=== PATIENT | female | born 1965 | race Caucasian/White ===

== ENCOUNTER 2016-04-29 14:10 | Emergency (ER) | payer MEDICARE, MEDICAID ==
[2016-04-29 14:54] VITALS: BP 122/84
--- NOTE | 2016-04-29 15:25 | UC ---
Respiratory Complaint HPI - HPI Summary HPI Summary: The patient comes in today for: 1. Cough: Onset: 3 days. Palliative/provocative: Nothing makes the cough better or worse. Quality: Wet cough, hacking. Region: Lungs Severity: 0/10 Time: Cough comes and goes. Associated symptoms: Cough production: "Sometimes I do bring something up--yellow phlegm." Asthma: She has this and it is slightly worse. She is on Symbicort 160/4.5 one inhalation twice. She uses the albuterol inhaler about once a day. She is wheezing. Home: She is living with one with sinusitis and the other one has COPD. Fevers: None. Last ER asthma visit: "Quite a while ago." Prednisone use: Never. * - History of Current Complaint Chief Complaint: UC Stated Complaint: URI Time Seen by Provider: 04/29/16 15:17 Hx Obtained From: Patient Hx Last Menstrual Period: april 29 ?: No - Allergies/Home Medications Allergies/Adverse Reactions: Allergies Allergy/AdvReac Type Severity Reaction Status Date / Time Amoxicillin AdvReac Intermediate Nausea And Verified 04/29/16 15:00 Vomiting Tetracycline AdvReac Intermediate Nausea And Verified 04/29/16 15:00 Vomiting Aspirin AdvReac Unknown Unknown Verified 04/29/16 15:00 Reaction Details PMH/Surg Hx/FS Hx/Imm Hx Previously Healthy: No - Allergic rhinitis, Binge eating disorder, yeast and dermatophyte dermatitis Endocrine History Of: Reports: Diabetes, Thyroid Disease, Dyslipidemia Cardiovascular History Of: Denies: Cardiac Disorders, Hypertension, Pacemaker/ICD, Myocardial Infarction , Congestive Heart Failure, Atrial Fibrillation, Deep Vein Thrombosis, Bleeding Disorders Respiratory History Of: Reports: Asthma Denies: COPD, Bronchitis, Pneumonia, Pulmonary Embolism GI/ History Of: Reports: Gastroesophageal Reflux, Ulcer Denies: Renal Disease Neurological History Of: Denies: TIA, CVA, Dementia, Seizures, Migraine Psychological History Of: Reports: Schizophrenia Denies: Anxiety, Depression, Bipolar Disorder, Post Traumatic Stress Disorder Cancer History Of: Denies: Lung Cancer, Colorectal Cancer, Breast Cancer, Prostate Cancer, Cervical Cancer Other History Of: Negative For: HIV, Hepatitis B, Hepatitis C, Anticoagulant Therapy - Surgical History Surgical History: Yes Surgery Procedure, Year, and Place: tubal ligation - Family History Known Family History: Positive: Cardiac Disease, Hypertension, Diabetes - Social History Occupation: Unemployed Alcohol Use: None Substance Use Type: None Smoking Status (MU): Never Smoked Tobacco - Immunization History Most Recent Influenza Vaccination: 2016 Review of Systems Constitutional: Negative Skin: Negative Eyes: Negative ENT: Negative Respiratory: Shortness Of Breath, Cough Cardiovascular: Negative Gastrointestinal: Negative Genitourinary: Negative All Other Systems Reviewed And Are Negative: Yes Physical Exam Triage Information Reviewed: Yes Appearance: Well-Appearing, No Pain Distress, Well-Nourished Vital Signs: Initial Vital Signs Temp 98.8 F 04/29/16 14:48 Pulse 85 04/29/16 14:48 Resp 18 04/29/16 14:48 BP 122/84 04/29/16 14:48 Pulse Ox 100 04/29/16 14:48 Vital Signs Reviewed: Yes Eyes: Positive: Conjunctiva Clear. Negative: Discharge ENT: Positive: Hearing grossly normal, Other: - Ears: Right ear: TM andersen and translucent. Left ear: Cerumen impaction in place. She did not agree to ear irrigation. Canal: no erythema or edema.. Negative: Pharyngeal erythema, Nasal congestion, Nasal drainage, Tonsillar swelling, Tonsillar exudate Dental: Negative: Gross Decay/Caries @, Dental Fracture @ Neck: Positive: Supple, Nontender, No Lymphadenopathy. Negative: Nuchal Rigidity Respiratory: Positive: Chest non-tender, Lungs clear, No respiratory distress, No accessory muscle use. Negative: Rhonchi, Wheezing Cardiovascular: Positive: RRR, No Murmur Abdomen Description: Positive: Nontender, No Organomegaly, Soft. Negative: Distended, Guarding Musculoskeletal: Positive: Strength Intact, ROM Intact, No Edema Neurological: Positive: Alert, Muscle Tone Normal Psychological: Positive: Age Appropriate Behavior, Consolable Skin: Negative: rashes, breakdown UC Diagnostic Evaluation - Laboratory O2 Sat by Pulse Oximetry: 100 Respiratory Course/Dx - Differential Dx/Diagnosis Differential Diagnosis/HQI/PQRI: Asthma, Laryngitis, Sinusitis Provider Diagnoses: Upper viral respiratory infection. Sinusitis. Bronchitis. Asthma Discharge - Discharge Plan Condition: Stable Disposition: HOME Patient Education Materials: Sinusitis (ED), Acute Bronchitis (ED), Asthma (ED) Referrals: Jason Bianchi MD [Primary Care Provider] - 1 Week (Please see your primary care provider in a week to see how well you are doing. If you get worse, please be seen sooner in the ER or through us.)
== END 2016-04-29 16:01 | disposition home or self-care (01) ==
LOC: UCEAST 14:10
DX: J06.9 Acute upper respiratory infection, unspecified (principal); J32.9 Chronic sinusitis, unspecified; J45.909 Unspecified asthma, uncomplicated; Z88.1 Allergy status to other antibiotic agents; Z88.6 Allergy status to analgesic agent; Z88.0 Allergy status to penicillin
CPT/HCPCS: 99212; G0463

== ENCOUNTER 2017-02-14 20:49 | Emergency (ER) | payer MEDICARE, MEDICAID ==
[2017-02-14] MEDS ORDERED: Lidocaine 2% VISCOUS* 15 ML UDC PO ONE (21:32)
[2017-02-14] MEDS ORDERED: Al Hydrox/Mg Hydrox/Simet LIQ* 30 ML UDC PO ONE (21:32)
[2017-02-14 22:39] LABS: Hematocrit 38 % (35-47); Mean Corpuscular HGB Conc 34 g/dl (31-36); Mean Corpuscular Hemoglobin 29 pg (27-31); Mean Corpuscular Volume 85 fL (80-97); Mean Platelet Volume 8 um3 (7.4-10.4); Red Blood Count 4.43 10^6/ul (4.0-5.4); Red Cell Distribution Width 15 % (10.5-15); White Blood Count 6.5 10^3/ul (3.5-10.8)
[2017-02-14 22:51] LABS: Albumin 4.1 g/dL (3.2-5.2); BUN/Creatinine Ratio 14.6 (8-20); C Reactive Protein 19.07 mg/L (< 5.00); Calcium 9.8 mg/dL (8.6-10.3); EGFR African American 71.8 (>60); EGFR Non-African American 55.8 (>60); Globulin 2.6 g/dL (2-4); Total Bilirubin 0.4 mg/dL (0.2-1.0); Total Protein 6.7 g/dL (6.4-8.9)
[2017-02-14 23:34] VITALS: BP 163/79
--- NOTE | 2017-02-15 11:41 | ED ---
Jj Mesa Thomas, scribed for Jose Gallardo MD on 02/14/17 at 2141 . HPI Chest Pain - HPI Summary HPI Summary: This patient is a 52 year old F presenting to [facility] accompanied by a female with a chief complaint of heartburn in her central chest since the last two weeks. She describes this pain as acidic. The patient rates the pain 8/10 in severity. Symptoms aggravated by nothing. Symptoms alleviated by nothing. Patient reports abdominal pain, vomiting, and nausea. Patient denies diarrhea. She has been taking omeprazole and Pepto-Bismol. - History of Current Complaint Chief Complaint: EDAbdPain Time Seen by Provider: 02/14/17 21:22 Hx Obtained From: Patient Onset/Duration: Started Weeks Ago - 2, Still Present Timing: Constant Current Severity: Severe Pain Intensity: 8 Pain Scale Used: 0-10 Numeric Chest Pain Location: Diffuse Character: Other: - Acidic Aggravating Factor(s): Nothing Alleviating Factor(s): Nothing Associated Signs and Symptoms: Positive: Other: - heartburn, abdominal pain, vomiting, and nausea; NEGATIVE: diarrhea - Allergy/Home Medications Allergies/Adverse Reactions: Allergies Allergy/AdvReac Type Severity Reaction Status Date / Time Amoxicillin AdvReac Intermediate Nausea And Verified 04/29/16 15:00 Vomiting Tetracycline AdvReac Intermediate Nausea And Verified 04/29/16 15:00 Vomiting Aspirin AdvReac Unknown Unknown Verified 04/29/16 15:00 Reaction Details PMH/Surg Hx/FS Hx/Imm Hx Previously Healthy: No Endocrine/Hematology History: Reports: Hx Diabetes, Hx Thyroid Disease Denies: Hx Anticoagulant Therapy Cardiovascular History: Denies: Hx Congestive Heart Failure, Hx Deep Vein Thrombosis, Hx Hypertension , Hx Myocardial Infarction, Hx Pacemaker/ICD Respiratory History: Reports: Hx Asthma Denies: Hx Chronic Obstructive Pulmonary Disease (COPD), Hx Lung Cancer, Hx Pneumonia, Hx Pulmonary Embolism GI History: Reports: Hx Ulcer History: Denies: Hx Dialysis, Hx Renal Disease Neurological History: Denies: Hx Dementia, Hx Migraine, Hx Seizures, Hx Transient Ischemic Attacks (TIA) Psychiatric History: Reports: Hx Schizophrenia Denies: Hx Anxiety, Hx Depression, Hx Bipolar Disorder - Cancer History Hx Chemotherapy: No Hx Radiation Therapy: No - Surgical History Surgery Procedure, Year, and Place: tubal ligation Infectious Disease History: No Infectious Disease History: Denies: Traveled Outside the [place] in Last 30 Days - Family History Known Family History: Positive: Cardiac Disease, Hypertension, Diabetes - Social History Alcohol Use: None Hx Substance Use: No Substance Use Type: Reports: None Hx Tobacco Use: No Smoking Status (MU): Never Smoked Tobacco Review of Systems Negative: Fever Positive: Chest Pain - acidic Positive: Abdominal Pain, Vomiting, Nausea. Negative: Diarrhea All Other Systems Reviewed And Are Negative: Yes Physical Exam - Summary Physical Exam Summary: Appearance: The patient is well-nourished in no acute distress and in no acute pain. Skin: The skin is warm and dry and skin color reflects adequate perfusion. HEENT: The head is normocephalic and atraumatic. The pupils are equal and reactive. The conjunctivae are clear and without drainage. Nares are patent and without drainage. Mouth reveals moist mucous membranes and the throat is without erythema and exudate. The external ears are intact. The ear canals are patent and without drainage. The tympanic membranes are intact. Neck: the neck is supple with full range of motion and non-tender. There are no carotid bruits. There is no neck vein distension. Respiratory: Chest is non-tender. Lungs are clear to auscultation and breath sounds are symmetrical and equal. Cardiovascular: Heart is regular rate and rhythm. There is no murmur or rub auscultated. There is no peripheral edema and pulses are symmetrical and equal. She is tender to the anterior chest wall. She has parasternal tenderness. Abdomen: The abdomen is soft and non-tender. There are normal bowel sounds heard in all four quadrants and there is no organomegaly palpated. She is obses Musculoskeletal: There is no back tenderness noted. Extremities are non-tender with full range of motion. There is good capillary refill. There is no peripheral edema or calf tenderness elicited. Neurological: Patient is alert and oriented to person, place and time. The patient has symmetrical motor strength in all four extremities. Cranial nerves are grossly intact. Deep tendon reflexes are symmetrical and equal in all four extremities. Psychiatric: The patient has an appropriate affect and does not exhibit depression. She is anxious. Triage Information Reviewed: Yes Vital Signs On Initial Exam: Initial Vitals Temp Pulse Resp BP Pulse Ox 97 F 81 22 127/97 97 02/14/17 20:53 02/14/17 20:53 02/14/17 20:53 02/14/17 20:53 02/14/17 20:53 Vital Signs Reviewed: Yes Diagnostics - Vital Signs Vital Signs Temp Pulse Resp BP Pulse Ox 02/14/17 20:53 97 F 81 22 127/97 97 - Laboratory Lab Results: Lab Results 02/14/17 02/14/17 02/14/17 Range/Units 22:20 22:20 22:20 WBC 6.5 (3.5-10.8) 10^3/ul RBC 4.43 (4.0-5.4) 10^6/ul Hgb 13.0 (12.0-16.0) g/dl Hct 38 (35-47) % MCV 85 (80-97) fL MCH 29 (27-31) pg MCHC 34 (31-36) g/dl RDW 15 (10.5-15) % Plt Count 196 (150-450) 10^3/ul MPV 8 (7.4-10.4) um3 Neut % (Auto) 66.3 (38-83) % Lymph % (Auto) 23.9 L (25-47) % [place] % (Auto) 6.3 (1-9) % Eos % (Auto) 2.6 (0-6) % Baso % (Auto) 0.9 (0-2) % Absolute Neuts (auto) 4.3 (1.5-7.7) 10^3/ul Absolute Lymphs (auto) 1.5 (1.0-4.8) 10^3/ul Absolute Monos (auto) 0.4 (0-0.8) 10^3/ul Absolute Eos (auto) 0.2 (0-0.6) 10^3/ul Absolute Basos (auto) 0.1 (0-0.2) 10^3/ul Absolute Nucleated RBC 0.01 10^3/ul Nucleated RBC % 0.1 Sodium 133 (133-145) mmol/L Potassium 4.0 (3.5-5.0) mmol/L Chloride 102 (101-111) mmol/L Carbon Dioxide 22 (22-32) mmol/L Anion Gap 9 (2-11) mmol/L BUN 15 (6-24) mg/dL Creatinine 1.03 H (0.51-0.95) mg/dL Est GFR ( Amer) 71.8 (>60) Est GFR (Non-Af Amer) 55.8 (>60) BUN/Creatinine Ratio 14.6 (8-20) Glucose 447 H (70-100) mg/dL Lactic Acid 1.0 (0.5-2.0) mmol/L Calcium 9.8 (8.6-10.3) mg/dL Total Bilirubin 0.40 (0.2-1.0) mg/dL AST 13 (13-39) U/L ALT 14 (7-52) U/L Alkaline Phosphatase 105 H (34-104) U/L Troponin I 0.00 (<0.04) ng/mL C-Reactive Protein 19.07 H (< 5.00) mg/L Total Protein 6.7 (6.4-8.9) g/dL Albumin 4.1 (3.2-5.2) g/dL Globulin 2.6 (2-4) g/dL Albumin/Globulin Ratio 1.6 (1-3) Lipase 28 (11.0-82.0) U/L Result Diagrams: 02/14/17 22:20 02/14/17 22:20 Lab Statement: Any lab studies that have been ordered have been reviewed, and results considered in the medical decision making process. - EKG 21:40 Cardiac Rate: NL EKG Rhythm: Sinus Rhythm EKG Interpretation: 71 BPM. Nonspec intraseptal Twave changes. Consistent w/ . Chest Pain Course/Dx - Course Course Of Treatment: Ms. Urban presented with an epigastric and anterior chest pain that she has has almost continuously for two weeks. Her anterior chest wall and epigstrium were both tender. She got a lot of relief with a GI cocktail (no ). Her labs were OK except for a mild increase in CRP and a slight increase in ALP. This could point more toward gallbladder but I am reassured by her significant improvement and this can be explored more as an outpatient. I am going to add sucralfate. - Diagnoses Provider Diagnoses: Epigastric abdominal pain Discharge - Discharge Plan Condition: Stable Disposition: HOME Prescriptions: Sucralfate TAB* [Carafate*] 1 gm PO QID #40 tab Patient Education Materials: Epigastric Pain (ED) Referrals: Juan Daniel Morfin MD [Medical Doctor] - 3 Days Additional Instructions: Follow up with Dr. Morfin in 3 days. Return to the emergency department for any new or worsening symptoms. The documentation as recorded by the Jj boss Thomas accurately reflects the service I personally performed and the decisions made by me, Jose Gallardo MD.
== END 2017-02-14 23:48 | disposition home or self-care (01) ==
LOC: ED 20:49
DX: R10.13 Epigastric pain (principal); R11.2 Nausea with vomiting, unspecified; R12 Heartburn; R07.9 Chest pain, unspecified
CPT/HCPCS: 36415; 80053; 83605; 83690; 84484; 85025; 86140; 93005; 99283; A9270-GY

== ENCOUNTER 2017-02-26 13:56 | Emergency (ER) | payer MEDICARE, MEDICAID ==
[2017-02-26] MEDS ORDERED: NS 0.9% 1000 ML* 2,000 ML IV ONE (14:50)
[2017-02-26 16:23] LABS: ALT 12 U/L (7-52); AST 12 U/L (13-39); Albumin 3.8 g/dL (3.2-5.2); Alkaline Phosphatase 88 U/L (34-104); Anion Gap 11 mmol/L (2-11); BUN/Creatinine Ratio 15.5 (8-20); Blood Urea Nitrogen 15 mg/dL (6-24); C Reactive Protein 18.19 mg/L (< 5.00); CO2 Carbon Dioxide 21 mmol/L (22-32); Calcium 8.7 mg/dL (8.6-10.3); Chloride 99 mmol/L (101-111); EGFR Non-African American 59.8 (>60); Globulin 2.3 g/dL (2-4); Glucose 469 mg/dL (70-100); Potassium 3.9 mmol/L (3.5-5.0); Sodium 131 mmol/L (133-145); Total Protein 6.1 g/dL (6.4-8.9)
[2017-02-26 16:29] LABS: Urine Bilirubin Negative (Negative); Urine Glucose 3+(>=500 mg/dL) (Negative); Urine Nitrite Negative (Negative)
[2017-02-26 16:34] LABS: Hematocrit 37 % (35-47); Hemoglobin 12.4 g/dl (12.0-16.0); Mean Corpuscular HGB Conc 34 g/dl (31-36); Mean Corpuscular Hemoglobin 30 pg (27-31); Mean Corpuscular Volume 88 fL (80-97); Mean Platelet Volume 8 um3 (7.4-10.4); Red Blood Count 4.16 10^6/ul (4.0-5.4); Red Cell Distribution Width 15 % (10.5-15); White Blood Count 6.7 10^3/ul (3.5-10.8)
[2017-02-26 16:39] LABS: Lithium < 0.10 mmol/L (0.6-1.2)
[2017-02-26 17:22] VITALS: BP 126/63
[2017-02-26] MEDS ORDERED: glipiZIDE TAB* 5 MG PO ONE (18:13)
--- NOTE | 2017-02-26 18:22 | ED ---
Tacho Mesa Benjamin, scribed for Des Rutledge MD on 02/26/17 at 1531 . Complex/Multi-Sys Presentation - HPI Summary HPI Summary: 52yo female c/o high BG for 2 weeks. Pts BG has been around 400s and pt states feeling dizzy. Pt has also been urinating more frequently lately. Denies runny nose, cough, congestion, or any other URI like symptoms. Reports decreased appetite. Pt also has a rash in her mid sternal chest. Denies any pain. - History Of Current Complaint Chief Complaint: EDGeneral Time Seen by Provider: 02/26/17 14:50 - Allergies/Home Medications Allergies/Adverse Reactions: Allergies Allergy/AdvReac Type Severity Reaction Status Date / Time Amoxicillin AdvReac Intermediate Nausea And Verified 02/26/17 14:04 Vomiting Tetracycline AdvReac Intermediate Nausea And Verified 02/26/17 14:04 Vomiting Aspirin AdvReac Unknown Unknown Verified 02/26/17 14:04 Reaction Details PMH/Surg Hx/FS Hx/Imm Hx Endocrine/Hematology History: Reports: Hx Diabetes, Hx Thyroid Disease Denies: Hx Anticoagulant Therapy Cardiovascular History: Denies: Hx Congestive Heart Failure, Hx Deep Vein Thrombosis, Hx Hypertension , Hx Myocardial Infarction, Hx Pacemaker/ICD Respiratory History: Reports: Hx Asthma Denies: Hx Chronic Obstructive Pulmonary Disease (COPD), Hx Lung Cancer, Hx Pneumonia, Hx Pulmonary Embolism GI History: Reports: Hx Ulcer History: Denies: Hx Dialysis, Hx Renal Disease Neurological History: Denies: Hx Dementia, Hx Migraine, Hx Seizures, Hx Transient Ischemic Attacks (TIA) Psychiatric History: Reports: Hx Schizophrenia Denies: Hx Anxiety, Hx Depression, Hx Bipolar Disorder - Cancer History Hx Chemotherapy: No Hx Radiation Therapy: No - Surgical History Surgery Procedure, Year, and Place: tubal ligation Infectious Disease History: No Infectious Disease History: Denies: Traveled Outside the [place] in Last 30 Days - Family History Known Family History: Positive: Cardiac Disease, Hypertension, Diabetes - Social History Alcohol Use: None Hx Substance Use: No Substance Use Type: Reports: None Hx Tobacco Use: No Smoking Status (MU): Never Smoked Tobacco Review of Systems - ROS Summary Review of Systems Summary: INCREASED THIRST AND URINARY FREQUENCY. Constitutional: Negative Eyes: Negative ENT: Negative Cardiovascular: Negative Respiratory: Negative Gastrointestinal: Negative Positive: frequency Musculoskeletal: Negative Skin: Negative Neurological: Negative Psychological: Normal All Other Systems Reviewed And Are Negative: Yes Physical Exam Triage Information Reviewed: Yes Vital Signs On Initial Exam: Initial Vitals Temp Pulse Resp BP Pulse Ox 97.4 F 82 16 134/96 98 02/26/17 14:05 02/26/17 14:05 02/26/17 14:05 02/26/17 14:05 02/26/17 14:05 Vital Signs Reviewed: Yes Appearance: Positive: Well-Appearing, No Pain Distress, Well-Nourished Skin: Positive: Warm, Skin Color Reflects Adequate Perfusion, Dry Head/Face: Positive: Normal Head/Face Inspection Eyes: Positive: EOMI, DEV ENT: Positive: Hearing grossly normal, Other - dry oral mucosa Neck: Positive: Supple, Nontender Respiratory/Lung Sounds: Positive: Clear to Auscultation, Breath Sounds Present Cardiovascular: Positive: RRR Abdomen Description: Positive: Nontender, Soft Bowel Sounds: Positive: Present Musculoskeletal: Positive: Strength/ROM Intact Neurological: Positive: Sensory/Motor Intact, Alert, Oriented to Person Place, Time Psychiatric: Positive: Affect/Mood Appropriate Diagnostics - Vital Signs Vital Signs Temp Pulse Resp BP Pulse Ox 02/26/17 14:05 97.4 F 82 16 134/96 98 - Laboratory Lab Results: Lab Results 02/26/17 02/26/17 02/26/17 Range/Units 15:52 15:52 15:52 WBC (3.5-10.8) 10^3/ul RBC (4.0-5.4) 10^6/ul Hgb (12.0-16.0) g/dl Hct (35-47) % MCV (80-97) fL MCH (27-31) pg MCHC (31-36) g/dl RDW (10.5-15) % Plt Count (150-450) 10^3/ul MPV (7.4-10.4) um3 Neut % (Auto) (38-83) % Lymph % (Auto) (25-47) % [place] % (Auto) (1-9) % Eos % (Auto) (0-6) % Baso % (Auto) (0-2) % Absolute Neuts (auto) (1.5-7.7) 10^3/ul Absolute Lymphs (auto) (1.0-4.8) 10^3/ul Absolute Monos (auto) (0-0.8) 10^3/ul Absolute Eos (auto) (0-0.6) 10^3/ul Absolute Basos (auto) (0-0.2) 10^3/ul Absolute Nucleated RBC 10^3/ul Nucleated RBC % INR (Anticoag Therapy) 0.90 (0.89-1.11) Sodium 131 L (133-145) mmol/L Potassium 3.9 (3.5-5.0) mmol/L Chloride 99 L (101-111) mmol/L Carbon Dioxide 21 L (22-32) mmol/L Anion Gap 11 (2-11) mmol/L BUN 15 (6-24) mg/dL Creatinine 0.97 H (0.51-0.95) mg/dL Est GFR ( Amer) 77.0 (>60) Est GFR (Non-Af Amer) 59.8 (>60) BUN/Creatinine Ratio 15.5 (8-20) Glucose 469 H (70-100) mg/dL Lactic Acid 1.0 (0.5-2.0) mmol/L Calcium 8.7 (8.6-10.3) mg/dL Total Bilirubin 0.40 (0.2-1.0) mg/dL AST 12 L (13-39) U/L ALT 12 (7-52) U/L Alkaline Phosphatase 88 (34-104) U/L Troponin I 0.00 (<0.04) ng/mL C-Reactive Protein 18.19 H (< 5.00) mg/L B-Natriuretic Peptide ( - 100) pg/mL Total Protein 6.1 L (6.4-8.9) g/dL Albumin 3.8 (3.2-5.2) g/dL Globulin 2.3 (2-4) g/dL Albumin/Globulin Ratio 1.7 (1-3) Urine Color Urine Appearance Urine pH (5-9) Ur Specific [place] (1.010-1.030) Urine Protein (Negative) Urine Ketones (Negative) Urine Blood (Negative) Urine Nitrate (Negative) Urine Bilirubin (Negative) Urine Urobilinogen (Negative) Ur Leukocyte Esterase (Negative) Urine Glucose (Negative) [place] < 0.10 L (0.6-1.2) mmol/L 11/02/26/17 02/26/17 Range/Units 15:52 15:52 15:52 WBC 6.7 (3.5-10.8) 10^3/ul RBC 4.16 (4.0-5.4) 10^6/ul Hgb 12.4 (12.0-16.0) g/dl Hct 37 (35-47) % MCV 88 (80-97) fL MCH 30 (27-31) pg MCHC 34 (31-36) g/dl RDW 15 (10.5-15) % Plt Count 186 (150-450) 10^3/ul MPV 8 (7.4-10.4) um3 Neut % (Auto) 69.5 (38-83) % Lymph % (Auto) 21.0 L (25-47) % [place] % (Auto) 6.5 (1-9) % Eos % (Auto) 2.5 (0-6) % Baso % (Auto) 0.5 (0-2) % Absolute Neuts (auto) 4.6 (1.5-7.7) 10^3/ul Absolute Lymphs (auto) 1.4 (1.0-4.8) 10^3/ul Absolute Monos (auto) 0.4 (0-0.8) 10^3/ul Absolute Eos (auto) 0.2 (0-0.6) 10^3/ul Absolute Basos (auto) 0 (0-0.2) 10^3/ul Absolute Nucleated RBC 0 10^3/ul Nucleated RBC % 0 INR (Anticoag Therapy) (0.89-1.11) Sodium (133-145) mmol/L Potassium (3.5-5.0) mmol/L Chloride (101-111) mmol/L Carbon Dioxide (22-32) mmol/L Anion Gap (2-11) mmol/L BUN (6-24) mg/dL Creatinine (0.51-0.95) mg/dL Est GFR ( Amer) (>60) Est GFR (Non-Af Amer) (>60) BUN/Creatinine Ratio (8-20) Glucose (70-100) mg/dL Lactic Acid (0.5-2.0) mmol/L Calcium (8.6-10.3) mg/dL Total Bilirubin (0.2-1.0) mg/dL AST (13-39) U/L ALT (7-52) U/L Alkaline Phosphatase (34-104) U/L Troponin I (<0.04) ng/mL C-Reactive Protein (< 5.00) mg/L B-Natriuretic Peptide 25 ( - 100) pg/mL Total Protein (6.4-8.9) g/dL Albumin (3.2-5.2) g/dL Globulin (2-4) g/dL Albumin/Globulin Ratio (1-3) Urine Color Straw Urine Appearance Clear Urine pH 5.0 (5-9) Ur Specific [place] 1.018 (1.010-1.030) Urine Protein Negative (Negative) Urine Ketones 1+ H (Negative) Urine Blood Negative (Negative) Urine Nitrate Negative (Negative) Urine Bilirubin Negative (Negative) Urine Urobilinogen Negative (Negative) Ur Leukocyte Esterase Negative (Negative) Urine Glucose 3+(>=500 mg/dl) H (Negative) [place] (0.6-1.2) mmol/L Result Diagrams: 02/26/17 15:52 02/26/17 15:52 Lab Statement: Any lab studies that have been ordered have been reviewed, and results considered in the medical decision making process. Complex Multi-Symp Course/Dx Course Of Treatment: BP noted and advised to follow up with PCP. Allergies noted. Medications reviewed. WELL IN ED. DISCUSSED RESULTS WITH PATIENT. INITIAL BS 469. AFTER IV FLUIDS BLOOD SUGAR DECREASED TO 357. GIVEN GLIPIZIDE 5MG X 1 IN ED. THE PLAN IS TO F/U WITH PMD TOMORROW; RETURN IF WORSE. - Diagnoses Provider Diagnoses: Hyperglycemia due to type 2 diabetes mellitus Discharge - Discharge Plan Condition: Stable Disposition: HOME Patient Education Materials: Diabetic Hyperglycemia (ED) Referrals: Jason Bianchi MD [Primary Care Provider] - Additional Instructions: FOLLOW UP WITH YOUR DOCTOR TOMORROW FOR YOUR HIGH BLOOD SUGAR. YOU WERE GIVEN GLIPIZIDE 5MG ONCE IN THE EMERGENCY DEPARTMENT. RETURN TO THE EMERGENCY DEPARTMENT FOR ANY WORSENING OF YOUR CONDITION OR QUESTIONS OR CONCERNS. The documentation as recorded by the Tacho boss Benjamin accurately reflects the service I personally performed and the decisions made by me, Des Rutledge MD.
== END 2017-02-26 18:39 | disposition home or self-care (01) ==
LOC: ED 13:56
DX: E11.65 Type 2 diabetes mellitus with hyperglycemia (principal)
CPT/HCPCS: 36415; 80053; 80178; 81003; 83605; 83880; 84484; 85025; 85610; 86140; 99283; A9270-GY

== ENCOUNTER 2017-03-06 10:48 | Inpatient (IN) | payer MEDICARE, MEDICAID ==
[2017-03-06 11:41] LABS: Hematocrit 39 % (35-47); Hemoglobin 13.2 g/dl (12.0-16.0); Mean Corpuscular HGB Conc 34 g/dl (31-36); Mean Corpuscular Hemoglobin 30 pg (27-31); Mean Corpuscular Volume 87 fL (80-97); Mean Platelet Volume 8 um3 (7.4-10.4); Red Blood Count 4.42 10^6/ul (4.0-5.4); Red Cell Distribution Width 15 % (10.5-15)
[2017-03-06 11:59] LABS: ALT 13 U/L (7-52); AST 11 U/L (13-39); Albumin 4.1 g/dL (3.2-5.2); Alkaline Phosphatase 98 U/L (34-104); Anion Gap 14 mmol/L (2-11); BUN/Creatinine Ratio 14.4 (8-20); Blood Urea Nitrogen 15 mg/dL (6-24); CO2 Carbon Dioxide 17 mmol/L (22-32); Calcium 9.7 mg/dL (8.6-10.3); Chloride 102 mmol/L (101-111); EGFR Non-African American 55.2 (>60); Globulin 2.5 g/dL (2-4); Glucose 391 mg/dL (70-100); Potassium 3.7 mmol/L (3.5-5.0); Sodium 133 mmol/L (133-145); Total Protein 6.6 g/dL (6.4-8.9)
[2017-03-06 12:06] LABS: Benzodiazepine Urine Screen None Detected (None Detect)
[2017-03-06 12:07] LABS: Acetaminophen < 15 mcg/mL; Alcohol < 10 mg/dL (<10); Salicylate < 2.50 mg/dL (<30)
[2017-03-06 12:15] LABS: Urine Bacteria Absent (Absent); Urine Bilirubin Negative (Negative); Urine Glucose 3+(>=500 mg/dL) (Negative); Urine Nitrite Negative (Negative)
[2017-03-06 12:20] LABS: TSH (Thyroid Stimulating Horm) 4.25 mcIU/mL (0.34-5.60)
[2017-03-06] MEDS ORDERED: metFORMIN* 500 MG TAB PO ONE (13:53)
[2017-03-06] MEDS ORDERED: Insulin REGULAR(*) 1 UNITS UNIT SUBCUT ONE ×2 (13:54→16:16)
[2017-03-06 22:40] LABS: Lithium 0.18 mmol/L (0.6-1.2)
[2017-03-07] MEDS ORDERED: Nicotine GUM* 2 MG PO PRN (00:31)
[2017-03-07] MEDS ORDERED: Al Hydrox/Mg Hydrox/Simet LIQ* 30 ML UDC PO PRN (00:31)
[2017-03-07] MEDS ORDERED: Nicotine Inhaler* 10 MG AMP INH PRN (00:31)
[2017-03-07] MEDS ORDERED: Docusate CAP* 100 MG PO PRN (00:35)
[2017-03-07] MEDS: metFORMIN* 1,000 MG TAB PO SCH ×3 (00:45→21:28)
[2017-03-07] MEDS: CloZAPine TAB* 100 MG TAB PO SCH ×2 (00:45→21:28)
[2017-03-07] MEDS ORDERED: CloZAPine TAB* 100 MG TAB ONE (00:46)
[2017-03-07] MEDS ORDERED: Mouth Piece, Nicotine* 1 EACH CARTRIDGE INH ONE (01:00)
[2017-03-07] MEDS ORDERED: LORazepam TAB(*) 1 MG PO ONE (01:00)
[2017-03-07] MEDS ORDERED: Benztropine TAB* 2 MG PO ONE (01:00)
[2017-03-07] MEDS ORDERED: Benztropine TAB* 1 MG PO ONE (01:00)
[2017-03-07] MEDS ORDERED: Albuterol HFA INHALER* 8 gm MDI INH PRN (01:02)
[2017-03-07] MEDS ORDERED: LORazepam TAB(*) 1 MG ONE (01:03)
[2017-03-07] MEDS ORDERED: Benztropine TAB* 1 MG ONE (01:03)
[2017-03-07] MEDS: Mometasone/Formoter 200/5 MDI INH SCH ×3 (01:05→21:28)
[2017-03-07] MEDS: Atorvastatin* 20 MG TAB PO SCH ×2 (01:05→21:28)
[2017-03-07] MEDS ORDERED: Acetaminophen TAB* 325 MG PO PRN (01:13)
[2017-03-07] MEDS: Levothyroxine TAB* 88 MCG TAB PO SCH (06:40)
[2017-03-07] MEDS ORDERED: SitaGLIPtin (NF) 100 MG TAB PO SCH (09:00)
[2017-03-07] MEDS: Canagliflozin (NF) 100 MG TAB PO SCH (11:14)
[2017-03-07] MEDS: FLUoxetine CAP* 20 MG PO SCH (11:19)
[2017-03-07] MEDS: Vitamin THERAPEUTIC TAB PO SCH (11:19)
[2017-03-07] MEDS: Fluconazole 100 MG TAB* TAB PO SCH (11:19)
[2017-03-07] MEDS: Omeprazole CAP* 20 MG PO SCH (11:19)
[2017-03-07] MEDS: Fluticasone NASAL SPRAY 50MCG* 16 gm SPRAY BTL BOTH NARES SCH (11:20)
[2017-03-07] MEDS: CMCS - SitaGLIPtin (NF) 100 MG TAB PO SCH (11:24)
[2017-03-07] MEDS: CloZAPine TAB* 25 MG TAB PO SCH (21:28)
--- NOTE | 2017-03-07 22:56 | HP ---
HISTORY AND PHYSICAL: DATE OF ADMISSION: 03/07/17 IDENTIFYING DATA: Erin is a 52-year-old mentally disabled female with extensive history of mental illness and established diagnosis of schizoaffective disorder, bipolar type, who was hospi talized on behavioral health unit at least 7 times prior to this hospitalization and her last hospita lization on this unit was on 04/16/10. CHIEF COMPLAINT: "Voices are telling me to jump in front of a blue car and kill frogs." HISTORY OF PRESENT ILLNESS: Erin with known history of schizoaffective disorder who is followed a t [facility], was brought to the emergency department by ambulance because of command auditory hallucinations and herself not feeling safe at home. Erin has been experienci ng voices of a male person telling her to jump in front of a blue car and also kill frogs. She could not feel safe with the voices as it was so intense and all this reemerging self command auditory fareed lucinations appears to be related to an attempt by Dr. Holcomb at [facility] to switch her from clozapine to Abilify. Again, this is per the patient's report. She was also rep orting that Dr. Holcomb thought that her diabetes was either related to clozapine or being aggravated by clozapine, hence he wanted to switch her to a safer typical antipsychotic. However, may be becaus e of that or some other unknown stress, she started experiencing command auditory hallucinations as m entioned earlier. During the evaluation today, Erin could not find out any specific stress. Toda y, she denies any depressive, manic, or hypomanic symptoms. According to the unit report since her a dmission last night, she slept a lot and stayed in bed almost entire day today. I could finally eval uate her this evening in her room where she was fairly cooperative with the interview process. Altho ugh she appeared tired and somnolent, she was clear in reporting what was going on and what happened in the past. She continues to have command auditory hallucinations, although it is less intense. She does not have any definitive plan how she was going to commit suicide as dictated by the voice and s ays she feels safer on the unit. She denies any delusions or homicidal ideations. PAST PSYCHIATRIC HISTORY: As mentioned in HPI. The patient has numerous prior psychiatric hospitali zations, 7 of them on this unit. She also was at [facility] for extended perio d of time. In the past, she had multiple psychotropic treatments and only the clozapine worked the b est and she could be discharged to the community with fever, psychotic hospitalizations since clozapi ne was introduced. Erin has history of suicidal behaviors with at least 10 suicide attempts by ei ther overdosing on medications or jumping into a hummel. PAST MEDICAL HISTORY: Remarkable for multiple disabling physical health conditions including morbid obesity, type 2 diabetes mellitus, pancreatitis, repeated urinary tract infection, and right hip pain . MEDICATIONS: Her outpatient medications include: 1. [place] carbonate 600 mg twice a day. 2. Zoloft 100 mg a day. 3. Clozapine 250 mg at bedtime (reported by the patient). 4. Zocor 40 mg every morning. 5. Advair Diskus 250/50 mcg twice daily. 6. Prilosec 20 mg daily. 7. Loratadine 10 mg daily. 8. Colace 100 mg b.i.d. 9. Metformin 1000 mg twice a day. 10. Multivitamins once a day. 11. Ventolin 2 puffs q.4 to 6 hours p.r.n. for shortness of breath. ALLERGIES: Reported in the records indicate she is allergic to ASPIRIN, but she appears to be on asp irin as routine medications. Also AMOXICILLIN, which appears to be intolerance rather than allergy. It is listed in records that she is also either allergic or intolerant to TETRACYCLINE, reaction unk nown. SUBSTANCE USE HISTORY: She has a remote history of alcohol abuse. Currently, not drinking or doing any street drugs. PERSONAL AND SOCIAL HISTORY: Erin is originally from [place]. Currently, lives in [facility]. She was for 17 years and is currently . She has a son in his 30s and she does not h ave any contact with her immediate family members. She was educated through 12th grade through [employer]; however, her diagnosis includes an intellectual disability. 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 She also worked at [employer] for 8 years. She currently lives in a [facility] health housing in the area. This is a mcc named [facility]. PHYSICAL EXAMINATION Physical exam was offered and Erin declined because of not feeling well and it is evident that she is still so somnolent that she just wants to finish the assessment and go back to sleep. However, s he does not appear to be in any kind of physical distress. Her vitals were within normal limits with a blood pressure of 110/76, pulse 87, temperature 98 degrees Fahrenheit, respirations 20, O2 sat 98% on room air. No complaints of pain. Review of ED physical was also unremarkable. MENTAL STATUS EXAMINATION: Erin is a morbidly obese white female lying in her bed, body covered with blanket. She made fairly good eye contacts when she could keep it open. Alert and oriented to time, place, and person. Speech is soft and low in volume, but goal directed. She describes her moo d as sad. Observed affect is constricted. Reports of experiencing command auditory hallucinations. Also, continues to have suicidal ideations with no plan at this time. Denies any homicidal ideation . Denies visual hallucination. Intelligence appears to be average as evidenced by her vocabulary an d fund of knowledge. Memory functions are intact in all spheres. Insight and judgement appears to b e adequate. SUMMARY: This 52-year-old female with known history of schizoaffective disorder with numer ous prior psychiatric hospitalizations including long-term hospitalization at [facility] in who was stabilized on clozapine. She appears to be decompensated and became psychot ic and suicidal in the context of reported attempt by her outpatient psychiatrist to switch her from clozapine to Abilify because of uncontrolled diabetes. DIAGNOSTIC IMPRESSION: MENTAL HEALTH DIAGNOSES: Schizoaffective disorder, bipolar type, most recent episode depressed. She also carries a diagnosis of borderline intellectual functioning. PHYSICAL HEALTH DIAGNOSES: 1. Obesity. 2. Hypercholesterolemia. 3. History of pancreatitis. 4. Repeated urinary tract infection. 5. Kok-oscjmhx-deguaxalt diabetes mellitus type 2. TREATMENT RECOMMENDATIONS: Admit to the behavioral health unit for her safety with a full code statu s. Supportive milieu, individual, and group therapy will be initiated as the patient tolerates. We will request a hospitalist consult to advise us on diabetes mellitus with a potential for prescribing insulin, which Erin verbally agrees to. We will continue her on all her outpatient medications i ncluding clozapine. Clozapine dose was adjusted to 250 mg tonight and we will continue to adjust hig her to achieve control of psychosis. Rest of the psychotropic medication management will be deferred to the psychiatrist, who will be assigned to her from Thursday. She might need to be on the unit for 5 to 7 days this time. [id number]/[facility] #: [id number]
[2017-03-07] MEDS ORDERED: Insulin LISPRO* 1 UNITS UNIT SUBCUT PRN (23:25)
[2017-03-07] MEDS ORDERED: Insulin GLARGINE(*) 1 UNITS UNIT SUBCUT PRN (23:25)
[2017-03-07] MEDS ORDERED: Insulin GLARGINE(*) 1 UNITS UNIT ONE (23:38)
[2017-03-07] MEDS ORDERED: Insulin LISPRO* 1 UNITS UNIT SUBCUT ONE (23:39)
[2017-03-08] MEDS: Levothyroxine TAB* 88 MCG TAB PO SCH (06:00)
[2017-03-08] MEDS ORDERED: Dextrose 50% Syringe 50 ML* 25 GM/50 ML SYRINGE IV PUSH PRN (07:43)
[2017-03-08] MEDS ORDERED: Insulin GLARGINE(*) 1 UNITS UNIT SUBCUT ONE (07:44)
[2017-03-08] MEDS: Insulin LISPRO* 1 UNITS UNIT SUBCUT SCH ×4 (08:08→21:15)
[2017-03-08] MEDS: Canagliflozin (NF) 100 MG TAB PO SCH (09:02)
[2017-03-08] MEDS: FLUoxetine CAP* 20 MG PO SCH (09:03)
[2017-03-08] MEDS: Fluticasone NASAL SPRAY 50MCG* 16 gm SPRAY BTL BOTH NARES SCH (09:04)
[2017-03-08] MEDS: Omeprazole CAP* 20 MG PO SCH (09:04)
[2017-03-08] MEDS: Vitamin THERAPEUTIC TAB PO SCH (09:04)
[2017-03-08] MEDS: metFORMIN* 1,000 MG TAB PO SCH ×2 (09:04→20:50)
[2017-03-08] MEDS: Mometasone/Formoter 200/5 MDI INH SCH ×2 (09:04→20:51)
[2017-03-08] MEDS: CMCS - SitaGLIPtin (NF) 100 MG TAB PO SCH (09:33)
[2017-03-08] MEDS: Fluconazole 100 MG TAB* TAB PO SCH (09:33)
--- NOTE | 2017-03-08 16:29 | ED ---
Michael Mesa Angela, scribed for Tommy Mccormick MD on 03/06/17 at 1154 . Psychiatric Complaint - HPI Summary HPI Summary: This pt is a 52 y/o female presenting to [facility] via EMS from [facility] c/o auditory hallucinations. Pr reports her doctor (Dr. Maher) has been changing her Clozaril. She notes she has been having auditory hallucinations telling her to jump into traffic. Pt also states having thoughts of harming frogs. She reports she has not slept in 3 days. Pt denies SI or HI. PMHx includes schizophrenia, diabetes, asthma. - History Of Current Complaint Time Seen by Provider: 03/06/17 10:54 Hx Obtained From: Patient Hx Last Menstrual Period: april 29 Onset/Duration: Gradual Onset, Still Present Timing: Constant Character: Manic Aggravating Factor(s): Other - recent change of medication Associated Signs And Symptoms: Positive: Hallucinating - auditory - Allergies/Home Medications Allergies/Adverse Reactions: Allergies Allergy/AdvReac Type Severity Reaction Status Date / Time Amoxicillin AdvReac Intermediate Nausea And Verified 02/26/17 14:04 Vomiting Tetracycline AdvReac Intermediate Nausea And Verified 02/26/17 14:04 Vomiting Aspirin AdvReac Unknown Unknown Verified 02/26/17 14:04 Reaction Details Home Medications: Home Medications Albuterol inh POWDER (NF) [Proair Respiclick] 1 puff INH Q6HR PRN 03/06/17 [ History Confirmed 03/06/17] Canagliflozin (NF) [Invokana (NF)] 100 mg PO DAILY 03/06/17 [History Confirmed 03/06/17] CloZAPine TAB* 200 mg PO BEDTIME 03/06/17 [History Confirmed 03/06/17] FLUoxetine CAP* [PROzac CAP*] 40 mg PO QAM 03/06/17 [History Confirmed 03/06/17] Fluconazole 100 MG TAB* [Diflucan 100 MG TAB*] 100 mg PO DAILY 03/06/17 [ History Confirmed 03/06/17] Levothyroxine TAB* [Synthroid TAB*] 88 mcg PO DAILY 03/06/17 [History Confirmed 03/06/17] Omeprazole CAP* [Prilosec CAP* 20 MG] 40 mg PO DAILY 03/06/17 [History Confirmed 03/06/17] Pantoprazole TAB (NF) [Protonix TAB (NF)] 40 mg PO DAILY 03/06/17 [History Confirmed 03/06/17] SitaGLIPtin (NF) [Januvia (NF)] 100 mg PO DAILY 03/06/17 [History Confirmed 11/13] Topiramate TAB(*) [Topamax 100 mg tab] 100 mg PO BID 03/06/17 [History Confirmed 03/06/17] Topiramate TAB(*) [Topamax 100 mg tab] 100 mg PO BID 03/06/17 [History Confirmed 03/06/17] metFORMIN* [Glucophage 1000 MG TAB *] 1,000 mg PO BID 03/06/17 [History Confirmed 03/06/17] PMH/Surg Hx/FS Hx/Imm Hx Endocrine/Hematology History: Reports: Hx Diabetes, Hx Thyroid Disease Denies: Hx Anticoagulant Therapy Cardiovascular History: Denies: Hx Congestive Heart Failure, Hx Deep Vein Thrombosis, Hx Hypertension , Hx Myocardial Infarction, Hx Pacemaker/ICD Respiratory History: Reports: Hx Asthma Denies: Hx Chronic Obstructive Pulmonary Disease (COPD), Hx Lung Cancer, Hx Pneumonia, Hx Pulmonary Embolism GI History: Reports: Hx Ulcer History: Denies: Hx Dialysis, Hx Renal Disease Neurological History: Denies: Hx Dementia, Hx Migraine, Hx Seizures, Hx Transient Ischemic Attacks (TIA) Psychiatric History: Reports: Hx Schizophrenia Denies: Hx Anxiety, Hx Depression, Hx Bipolar Disorder - Cancer History Hx Chemotherapy: No Hx Radiation Therapy: No - Surgical History Surgery Procedure, Year, and Place: tubal ligation Infectious Disease History: No Infectious Disease History: Denies: Traveled Outside the [place] in Last 30 Days - Family History Known Family History: Positive: Cardiac Disease, Hypertension, Diabetes - Social History Alcohol Use: None Hx Substance Use: No Substance Use Type: Reports: None Hx Tobacco Use: No Smoking Status (MU): Never Smoked Tobacco Review of Systems Negative: Fever, Chills Eyes: Negative ENT: Negative Cardiovascular: Negative Respiratory: Negative Gastrointestinal: Negative Psychological: Other - auditory hallucination, thoughts of harming frogs Negative: Other - SI or HI All Other Systems Reviewed And Are Negative: Yes Physical Exam - Summary Physical Exam Summary: VITAL SIGNS: Reviewed. GENERAL: Patient is a well-developed and nourished female who is lying comfortable in the stretcher. Patient is not in any acute respiratory distress. HEAD AND FACE: No signs of trauma. No ecchymosis, hematomas or skull depressions. No sinus tenderness. EYES: PERRLA, EOMI x 2, No injected conjunctiva, no nystagmus. EARS: Hearing grossly intact. Ear canals and tympanic membranes are within normal limits. MOUTH: Oropharynx within normal limits. NECK: Supple, trachea is midline, no adenopathy, no JVD, no carotid bruit, no c- spine tenderness, neck with full ROM. CHEST: Symmetric, no tenderness at palpation LUNGS: Clear to auscultation bilaterally. No wheezing or crackles. CVS: Regular rate and rhythm, S1 and S2 present, no murmurs or gallops appreciated. ABDOMEN: Soft, non-tender. No signs of distention. No rebound no guarding, and no masses palpated. Bowel sounds are normal. EXTREMITIES: FROM in all major joints, no edema, no cyanosis or clubbing. NEURO: Alert and oriented x 3. No acute neurological deficits. Speech is normal and follows commands. SKIN: Dry and warm Triage Information Reviewed: Yes Vital Signs On Initial Exam: Initial Vitals Temp Pulse Resp BP Pulse Ox 98 F 66 18 131/65 98 03/06/17 11:00 03/06/17 11:00 03/06/17 11:00 03/06/17 11:00 03/06/17 11:00 Vital Signs Reviewed: Yes Diagnostics - Vital Signs Vital Signs Temp Pulse Resp BP Pulse Ox 03/06/17 11:00 98 F 66 18 131/65 98 - Laboratory Lab Results: Lab Results 03/06/17 Range/Units 11:15 WBC 7.0 (3.5-10.8) 10^3/ul RBC 4.42 (4.0-5.4) 10^6/ul Hgb 13.2 (12.0-16.0) g/dl Hct 39 (35-47) % MCV 87 (80-97) fL MCH 30 (27-31) pg MCHC 34 (31-36) g/dl RDW 15 (10.5-15) % Plt Count 214 (150-450) 10^3/ul MPV 8 (7.4-10.4) um3 Neut % (Auto) 72.2 (38-83) % Lymph % (Auto) 18.3 L (25-47) % Loving % (Auto) 7.1 (1-9) % Eos % (Auto) 1.8 (0-6) % Baso % (Auto) 0.6 (0-2) % Absolute Neuts (auto) 5.1 (1.5-7.7) 10^3/ul Absolute Lymphs (auto) 1.3 (1.0-4.8) 10^3/ul Absolute Monos (auto) 0.5 (0-0.8) 10^3/ul Absolute Eos (auto) 0.1 (0-0.6) 10^3/ul Absolute Basos (auto) 0 (0-0.2) 10^3/ul Absolute Nucleated RBC 0 10^3/ul Nucleated RBC % 0 Result Diagrams: 03/06/17 11:15 03/06/17 11:15 Lab Statement: Any lab studies that have been ordered have been reviewed, and results considered in the medical decision making process. Course/Dx - Course Assessment/Plan: This pt is a 52 y/o female presenting to [facility] via EMS from [facility] c/o auditory hallucinations. Pr reports her doctor (Dr. Maher) has been changing her Clozaril. She notes she has been having auditory hallucinations telling her to jump into traffic. Pt also states having thoughts of harming frogs. She reports she has not slept in 3 days. Pt denies SI or HI. PMHx includes schizophrenia, diabetes, asthma. The pt shows hyperglycemia of 391, therefore she was given metformin and insulin. Sugar levels decreased to 260. Pt is medically cleared at 11:59. The pt will be signed out to the next ER attending to follow up on recommendation from the mental health director special education. - Differential Dx/Clinical Impression Provider Diagnosis: Auditory hallucination Discharge - Discharge Plan Condition: Stable Disposition: OTHER Discharge Disposition Comment: signed out to the next ER attending, pending dispo, awaiting MHE. Referrals: Jason Bianchi MD [Primary Care Provider] - The documentation as recorded by the Michael boss Angela accurately reflects the service I personally performed and the decisions made by me, Tommy Mccormick MD.
[2017-03-08] MEDS: CloZAPine TAB* 25 MG TAB PO SCH (20:49)
[2017-03-08] MEDS: Atorvastatin* 20 MG TAB PO SCH (20:49)
[2017-03-08] MEDS: CloZAPine TAB* 100 MG TAB PO SCH (20:50)
[2017-03-09] MEDS: Levothyroxine TAB* 88 MCG TAB PO SCH (06:30)
[2017-03-09] MEDS: Insulin LISPRO* 1 UNITS UNIT SUBCUT SCH ×6 (07:48→20:43)
[2017-03-09] MEDS: FLUoxetine CAP* 20 MG PO SCH (09:05)
[2017-03-09] MEDS: Vitamin THERAPEUTIC TAB PO SCH (09:05)
[2017-03-09] MEDS: Mometasone/Formoter 200/5 MDI INH SCH ×2 (09:06→21:46)
[2017-03-09] MEDS: Fluconazole 100 MG TAB* TAB PO SCH (09:06)
[2017-03-09] MEDS: Omeprazole CAP* 20 MG PO SCH (09:06)
[2017-03-09] MEDS: CMCS - SitaGLIPtin (NF) 100 MG TAB PO SCH (09:06)
[2017-03-09] MEDS: Fluticasone NASAL SPRAY 50MCG* 16 gm SPRAY BTL BOTH NARES SCH (09:06)
[2017-03-09] MEDS: metFORMIN* 1,000 MG TAB PO SCH ×2 (09:06→20:36)
[2017-03-09] MEDS: Canagliflozin (NF) 100 MG TAB PO SCH (09:12)
--- NOTE | 2017-03-09 11:25 | ADMNOTE ---
Identification - Identify Employment Status: Disabled Hx Psychiatric Hospitalization: Yes Prior Psychiatric Diagnosis: Schizoaffective Disorder Bipolar Type Arrived to Hospital Via: arrived by ambulance on 949 status accompaniced by [employer] officer History - Objective Lab Results: Laboratory Tests 03/07/17 03/07/17 03/08/17 17:14 22:41 01:49 POC Glucose (mg/dL) 185 H 376 H 271 H 03/08/17 03/08/17 03/08/17 07:37 11:47 16:38 POC Glucose (mg/dL) 351 H 282 H 270 H 03/08/17 03/09/17 19:54 07:21 POC Glucose (mg/dL) 331 H 315 H Plan - Treatment Plan Medications: Current Medications Acetaminophen (Tylenol Tab*) 325 mg PO Q6H PRN PRN Reason: PAIN Al Hydrox/Mg Hydrox/Simethicone (Maalox Plus*) 30 ml PO Q4H PRN PRN Reason: INDIGESTION Albuterol (Ventolin Hfa Inhaler*) 1 puff INH Q6H PRN PRN Reason: SHORTNESS OF BREATH Atorvastatin Calcium (Lipitor*) 20 mg PO BEDTIME [facility] Last Admin: 03/08/17 20:49 Dose: 20 mg Canagliflozin (Invokana (Nf)) 100 mg PO DAILY [facility] Last Admin: 03/09/17 09:12 Dose: Not Given Clozapine (Clozapine Tab*) 200 mg PO BEDTIME [facility] Last Admin: 03/08/17 20:50 Dose: 200 mg Clozapine (Clozapine Tab*) 50 mg PO BEDTIME [facility] Last Admin: 03/08/17 20:49 Dose: 50 mg Dextrose (D50w Syringe 50 Ml*) 12.5 gm IV PUSH .FOR FS < 60 - SS PRN PRN Reason: FS < 60 Docusate Sodium (Colace Cap*) 100 mg PO BID PRN PRN Reason: CONSTIPATION Fluconazole (Diflucan 100 Mg Tab*) 100 mg PO DAILY [facility] Last Admin: 03/09/17 09:06 Dose: 100 mg Fluoxetine HCl (Prozac Cap*) 40 mg PO QAM [facility] Last Admin: 03/09/17 09:05 Dose: 40 mg Fluticasone Propionate (Flonase Nasal [place] 50mcg*) 2 spray BOTH NARES DAILY [facility] Last Admin: 03/09/17 09:06 Dose: 2 spray Insulin Glargine (Lantus(*)) 10 units SUBCUT ONCE PRN PRN Reason: BLOOD GLUCOSE OF 376 Insulin Human Lispro (Humalog*) 10 units SUBCUT ONCE PRN PRN Reason: BLOOD GLUCOSE OF 376 Insulin Human Lispro (Humalog*) 0 units SUBCUT ACHS MAG PRN Reason: Protocol Last Admin: 03/09/17 07:48 Dose: 8 units Levothyroxine Sodium (Synthroid Tab*) 88 mcg PO DAILY@0600 [facility] Last Admin: 03/09/17 06:30 Dose: 88 mcg Metformin HCl (Glucophage*) 1,000 mg PO BID [facility] Last Admin: 03/09/17 09:06 Dose: 1,000 mg Mometasone Furoate/Formoterol Fumar (Dulera 200/5 Mdi*) 2 puff INH BID [facility] Last Admin: 03/09/17 09:06 Dose: 2 puff Multivitamins (Theragran Tab*) 1 tab PO DAILY [facility] Last Admin: 03/09/17 09:05 Dose: 1 tab Nicotine (Nicotine Inhaler*) 10 mg INH Q2H PRN PRN Reason: CRAVING Nicotine Polacrilex (Nicotine Gum*) 2 mg PO Q2H PRN PRN Reason: CRAVING Omeprazole (Prilosec Cap*) 40 mg PO DAILY [facility] Last Admin: 03/09/17 09:06 Dose: 40 mg Sitagliptin Phosphate (Januvia (Nf)) 100 mg PO DAILY [facility] Last Admin: 03/09/17 09:06 Dose: 100 mg
--- NOTE | 2017-03-09 12:05 | PN ---
Subjective - Subjective Date of Service: 03/09/17 Service Type: 95294 Hosp care 25 min moderate complexity Subjective: Daily Progress Note Attending Psychiatrist Ms Urban is a 52 yo Woman with a long standing history of Schizoaffective Disorder Bipolar Type, Mild Intellectual Disability, Hypertension, DM type II, GERD, Obesity with 7 past psychiatric hospitalizations for psychosis/julian. Psychiatric follow up is with Dr. Holcomb at [facility]. She has long history of psychiatric stability after being switched to Clozapine 7 to 8 years ago. Due to concerns with regard to her obesity and poor diabetes control possibly exacerbated by Clozapine, Clozapine dosage was tapered and Latuda was added about 3 or 4 years ago with improved sugar control and continued remission of psychiatric illness. Due to concern over hyperglycemia in past month, Psychiatrist further reduced Clozapine from 200 mg qhs to 150 mg qhs which was associated with deterioration in mental status over past week including return of command auditory hallucinations telling her to kill herself by jumping off a bridge and to kill frogs. Patient has also been exhibiting symptoms of julian including insomnia x last 3 days, racing thoughts, excessive speech, and tearfullness. PMH: obesity, Hypertension, DM II,GERD PPH: I spoke with Dr. Holcomb patient's psychiatrist at [facility] who shared that patient has been followed at [facility] for past 8 years. multiple psych. meds failed and she was started on Clozapine with excellent treatment resposne. Was maintained on highish dose for long time with significant remission of psychotic symptoms. 3 to 4 years ago dosage lowered to 200 mg due to poor diabetes control and obesity. She did well with the decrease for several years. recently dosage lowered again due to high serum glucose reading. However, in reviewing patient's medications, it is observed that she is not taking scheduled insulin (either long acting or shortacting) but oral hypoglycemics which are not effectively addressing her diabetes(likely she has insulin resistance). Psychosocial history: patient lives alone. she is not in touch with her family. she is not abusing drugs or alcohol MSE: obese in no distress. speech decreased sponteneity and fluency mood: dysphroric affect: decreased range. blunting present normal psychomotor behavior. Though process concrete poverty of thought content. Alert and Oriented in 3 spheres. admits to AH commanding her to harm self. telling her "go on and do it" no VH, denies intention or urge to act on command hallucinations insight impaired. judgment poor fingersticks running in 300 to 450 range labs: cbc, LFT's TfT's in normal range Impression schizoaffective disorder bipolar type HTN DM type II GERD I spoke with Dr. Holcomb and the two of us were in agreement that benefit of increasing patient's Clozaril dosage back to what it was when she was functioning well outweighs risks it poses to her diabetes management. treatment with clozaril has kept patient out of hospital and allowed her to be able to function in the community. It would be prudent at this time to aggressively treat patient's insulin resistance by starting her on Long acting insulin with sliding scale short acting coverage AC and HS. There is also a new medication which is being used with clozapine to promote weight loss and improve diabetes manqagement. Also will restart patient's lithium, topiramate, Latuda and prozac which she has been taking. Current psych Meds: [place] Carb 600 mg bid, Topamax 100 mg BID, Prozac 40 mg qd , d/c Zoloft, Start Latuda 120 mg,Will leave Clozaril at 250 mg for now and even consider raising it further to 300 mg to stabalize mood. Plan - Plan Treatment Plan: Name: JENNIFFER URBAN Birthdate: 1965 [id number] Medications: Current Medications Acetaminophen (Tylenol Tab*) 325 mg PO Q6H PRN PRN Reason: PAIN Al Hydrox/Mg Hydrox/Simethicone (Maalox Plus*) 30 ml PO Q4H PRN
[2017-03-09] MEDS ORDERED: Dextrose 50% Syringe 50 ML* 25 GM/50 ML SYRINGE IV PUSH PRN (12:46)
[2017-03-09] MEDS ORDERED: Insulin LISPRO* 1 UNITS UNIT SUBCUT ONE (12:48)
[2017-03-09] MEDS ORDERED: Insulin LISPRO* 1 UNITS UNIT SUBCUT PRN (12:49)
[2017-03-09] MEDS: Topiramate TAB(*) 100 MG PO SCH ×2 (12:57→20:38)
[2017-03-09] MEDS: Lithium Carbonate TAB* 300 MG PO SCH ×2 (12:57→20:37)
[2017-03-09] MEDS ORDERED: Insulin GLARGINE(*) 1 UNITS UNIT SUBCUT SCH ×2 (13:00→21:00)
[2017-03-09 14:17] LABS: Lithium 0.13 mmol/L (0.6-1.2)
[2017-03-09] MEDS: Lurasidone(*) 120 MG TAB PO SCH (17:11)
--- NOTE | 2017-03-09 19:25 | CONS ---
CC: Dr. Fausto Payton; Dr. Bianchi * MEDICAL CONSULTATION REPORT: DATE OF CONSULT: 03/09/17 REQUESTING PROVIDER: Dr. Fausto Payton. CONSULTING PROVIDER: ARJUN Marie SUPERVISING PHYSICIAN: Dr. Brayden Smith. (dictated by ARJUN Marie) REASON FOR CONSULT: Diabetes management. HISTORY OF PRESENT ILLNESS: This is a 52-year-old female with diabetes, who is insulin naive, and history of schizoaffective disorder as well as asthma, obesity, and hyperlipidemia, who is currently an inpatient in our behavioral health unit admitted with history of auditory hallucinations. The patient reportedly had a recent change in her clozapine dose in hopes of improving her blood glucose management. The patient states that for the last month or so, she has been noticing her glucose between 288 and 450 mg/dL. She does check her glucose at home twice daily and is followed closely by her primary care provider, Dr. Bianchi. She states that she has been on metformin for several years and in the last week or so, she has been started on Januvia and Invokana. She has not previously been treated with insulin but feels comfortable giving herself injections. The patient reports good control of her asthma symptoms and reports medication compliance otherwise. She does state that she has some occasional nausea and upset stomach, but no significant abdominal pain, vomiting, or diarrhea. She does endorse polyuria. No chest pain, cough, or shortness of breath. PAST MEDICAL HISTORY: 1. Schizoaffective disorder. 2. Diabetes. 3. Obesity with BMI of 45. 4. Asthma. 5. Hyperlipidemia. HOME MEDICATIONS: 1. Albuterol inhaler 1 puff q.6 hours as needed for shortness of breath. 2. Symbicort 2 puffs inhaled twice daily. 3. Invokana 100 mg p.o. daily. 4. Clozapine 200 mg p.o. at bedtime. 5. Colace 100 mg p.o. twice daily. 6. Diflucan 100 mg p.o. daily. 7. Prozac 40 mg p.o. daily. 8. Fluticasone nasal spray, 2 sprays in both nostrils once daily. 9. Levothyroxine 88 mcg p.o. daily. 10. [place] 600 mg p.o. twice daily. 11. Latuda 120 mg p.o. at bedtime. 12. Metformin 1000 mg p.o. twice daily. 13. Multivitamin 1 tablet p.o. daily. 14. Omeprazole 40 mg p.o. daily. 15. Pantoprazole 40 mg p.o. daily. 16. Simvastatin 40 mg p.o. at bedtime. 17. Januvia 100 mg p.o. daily. 18. Topiramate 100 mg p.o. twice daily. REVIEW OF SYSTEMS: As noted above in HPI. PHYSICAL EXAM: Most recent vitals, temperature 97.2 degrees Fahrenheit, pulse 98 beats per minute, respiratory rate 15, oxygen saturation 98%, blood pressure 126/73 mmHg. General: This is a pleasant 52-year-old female, who is compliant with history and physical and is no acute distress. HEENT: Head is normocephalic, atraumatic. Mucous membranes are pink and moist. Cardiovascular : Heart has a regular rate and rhythm without murmurs, rubs, or gallops. Respiratory: Lungs are clear to auscultation without wheezes, crackles, or rhonchi. Abdomen: Abdomen is soft and nontender to palpation. Extremities: No edema noted. Skin: Limited exam, shows no concerning rashes or lesions. Psych: The patient is alert, appropriately oriented but somewhat flat affect but is cooperative with every aspect of history and physical. DIAGNOSTIC STUDIES/LAB DATA: CBC from 03/06/17 is unremarkable with white blood cell count of 7000, hemoglobin of 13.2 g/dL, platelet count of 214,000. Chemistry panel from 03/06/17 shows sodium of 133 mmol/L, potassium 3.7, serum bicarb of 17, anion gap of 14, BUN 15, creatinine 1.04, random glucose of 391. Transaminases and total bilirubin within normal limits. TSH 4.2. Hemoglobin A1c of 12%. Urinalysis shows 1+ ketones, 1+ blood, and 3+ glucose. Toxicology screen is negative. Baker levels are reported as low at 0.18. Hospital imaging: None. ASSESSMENT AND PLAN: This is a 52-year-old female previously insulin naive with schizoaffective disorder for which she is acutely hospitalized, who presents with hyperglycemia for which the hospitalist group has been consulted. 1. Diabetes with hyperglycemia - the patient's diabetes seems to have been poorly controlled for quite some time. Her hemoglobin A1c is 12%. She is on appropriate oral therapy. We would recommend that those be continued. It sounds like both Invokana and Januvia were recently started for her. Seeing as her hemoglobin A1c is well above 10%, this would be an indication to initiate insulin. We will start with Lantus. It appears that she has received 10 units of Lantus over the last 2 days with pretty minimal response. We will start with 20 units this evening, continue with sliding scale Humalog at mealtime and plan to titrate her Lantus up and hopefully to the point that her glucose can be adequately controlled with Lantus only and she does not require mealtime Humalog at the time of discharge. Recommend diabetic diet during patient's hospitalization. 2. Schizoaffective disorder with acute psychosis - management per psychiatric team. 3. Asthma - well controlled, recommend continuing Advair and p.r.n. albuterol. 4. Hyperlipidemia - continue statin therapy. 5. Obesity with a BMI of 45. 6. Code status. The patient is full code. 7. Healthcare proxy is unknown. DISPOSITION: Disposition will be determined by Psychiatry. Hospitalist group will continue to follow remotely and titrate up insulin therapy to improve glycemic control. ARJUN MARIE [id number]/CPS #: [id number] MTDD
[2017-03-09] MEDS: Atorvastatin* 20 MG TAB PO SCH (20:37)
[2017-03-09] MEDS: CloZAPine TAB* 100 MG TAB PO SCH (20:38)
[2017-03-09] MEDS: CloZAPine TAB* 25 MG TAB PO SCH (20:39)
[2017-03-10] MEDS: Levothyroxine TAB* 88 MCG TAB PO SCH (08:07)
[2017-03-10] MEDS: Insulin LISPRO* 1 UNITS UNIT SUBCUT SCH ×4 (08:07→20:31)
[2017-03-10] MEDS: Vitamin THERAPEUTIC TAB PO SCH (09:15)
[2017-03-10] MEDS: Topiramate TAB(*) 100 MG PO SCH ×2 (09:15→20:22)
[2017-03-10] MEDS: metFORMIN* 1,000 MG TAB PO SCH ×2 (09:15→20:22)
[2017-03-10] MEDS: Lithium Carbonate TAB* 300 MG PO SCH ×2 (09:15→20:21)
[2017-03-10] MEDS: FLUoxetine CAP* 20 MG PO SCH (09:16)
[2017-03-10] MEDS: Omeprazole CAP* 20 MG PO SCH (09:16)
[2017-03-10] MEDS: Fluconazole 100 MG TAB* TAB PO SCH (09:17)
[2017-03-10] MEDS: Canagliflozin (NF) 100 MG TAB PO SCH (09:17)
[2017-03-10] MEDS: CMCS - SitaGLIPtin (NF) 100 MG TAB PO SCH (09:17)
[2017-03-10] MEDS: Mometasone/Formoter 200/5 MDI INH SCH (09:18)
[2017-03-10] MEDS: Fluticasone NASAL SPRAY 50MCG* 16 gm SPRAY BTL BOTH NARES SCH (09:18)
--- NOTE | 2017-03-10 13:21 | PN ---
Hospitalist Progress Note Date of Service: 03/10/17 Reviewed glucose trends and vitals. FBG noted to by 303 mg/dl this am, still well above target. Increase Lantus to 30U this evening, cont SS Humalog. Vital Signs: Temp Pulse Resp BP Pulse Ox 97.5 F 96 16 125/64 98 03/10/17 11:25 03/10/17 11:25 03/10/17 11:25 03/10/17 11:25 03/10/17 11:25 Laboratory Tests 03/09/17 03/10/17 03/10/17 20:18 07:51 11:52 POC Glucose (mg/dL) 209 H 303 H 254 H
--- NOTE | 2017-03-10 14:58 | PN ---
Subjective - Subjective Date of Service: 03/10/17 Service Type: 18245 Hosp care 15 min low complexity Subjective: Per nursing patient is attending groups and compliant with medication. Stays mostly to herself and appears dysphoric. Sleeping about 6 hours per night. reported to me that she normally sleeps 8 hours per night Also stated that for the past 6 months auditory hallucinations have been more frequent and bothersome. Prior to this she would hear voices infrequently. Denies any side effects from psychiatric medications. Medical consultation by hospitalist service has been adjusting insulin to treat hyperglycemia. Lantus increased today to 30 units. Fingersticks remain elevated but there is a definite downward trend since starting Insulin. [place]oth Level of 0.18 on 1200 mg of lithium (03/09/2017) likely reflects increased urine lithium secondary to diuresis caused by hyperglycemia. also serum lithium levels are likely falsely depressed when glucose is elevated. Other possiblity is that patient is having diabetes Insipidus. MSE: mood: dysphoric affect: flat,blunted TP coherent TC: reports auditory hallucinations(single male voice) which are encouraging her to harm herself ("you should just do it, your never gonna get better, do it already") reports she feels safe and has no intention of acting on the commands. no VH. Alert and oriented in all spheres. insight fair judgment fair cogntively: impaired by virtue of fund of knowledge, expressive language and limited insight Impression: Schizoaffective D/O currently depressed Type II diabetes Hypertension GERD Obesity Plan: start Temazepam 15 mg qhs for insomnia continue other psychiatric medications unchanged will increase Clozapine to 300 mg QHS on 03/12/2017 insulin being adjusted by hospitalist service (appreciate comanagement) EKG to check QT interval tomorrow will get Clozaril level on 300 mg after a few days still gravely disabled and in need of inpatient level of care. Plan - Plan Treatment Plan: Name: JENNIFFER MILAN Birthdate: 1965 [id number]
[2017-03-10] MEDS: Lurasidone(*) 120 MG TAB PO SCH (16:46)
[2017-03-10] MEDS: CloZAPine TAB* 100 MG TAB PO SCH (20:22)
[2017-03-10] MEDS: CloZAPine TAB* 25 MG TAB PO SCH (20:22)
[2017-03-10] MEDS: Temazepam CAP* 15 MG PO SCH (20:22)
[2017-03-10] MEDS: Atorvastatin* 20 MG TAB PO SCH (20:22)
[2017-03-10] MEDS ORDERED: Insulin GLARGINE(*) 1 UNITS UNIT SUBCUT SCH (21:00)
[2017-03-11] MEDS: Mometasone/Formoter 200/5 MDI INH SCH ×3 (01:11→20:20)
[2017-03-11] MEDS: Levothyroxine TAB* 88 MCG TAB PO SCH (07:39)
[2017-03-11] MEDS: Insulin LISPRO* 1 UNITS UNIT SUBCUT SCH ×4 (07:57→21:24)
[2017-03-11] MEDS: Canagliflozin (NF) 100 MG TAB PO SCH (08:33)
[2017-03-11] MEDS: Vitamin THERAPEUTIC TAB PO SCH (09:10)
[2017-03-11] MEDS: Omeprazole CAP* 20 MG PO SCH (09:11)
[2017-03-11] MEDS: FLUoxetine CAP* 20 MG PO SCH (09:12)
[2017-03-11] MEDS: Fluticasone NASAL SPRAY 50MCG* 16 gm SPRAY BTL BOTH NARES SCH (09:12)
[2017-03-11] MEDS: metFORMIN* 1,000 MG TAB PO SCH ×2 (09:12→20:17)
[2017-03-11] MEDS: Topiramate TAB(*) 100 MG PO SCH ×2 (09:12→20:18)
[2017-03-11] MEDS: Lithium Carbonate TAB* 300 MG PO SCH ×2 (09:13→20:18)
[2017-03-11] MEDS: Fluconazole 100 MG TAB* TAB PO SCH (09:13)
[2017-03-11] MEDS: CMCS - SitaGLIPtin (NF) 100 MG TAB PO SCH (09:14)
--- NOTE | 2017-03-11 12:06 | PN ---
Hospitalist Progress Note Date of Service: 03/11/17 Reviewed labs and vitals from overnight. Noted improving glycemic control but still well above target. Increase Lantus to 40U nightly, cont SS Humalog at mealtime for hyperglycemia. Vital Signs: Temp Pulse Resp BP Pulse Ox 97.3 F 84 18 124/71 98 03/11/17 07:34 03/11/17 07:34 03/11/17 10:52 03/11/17 07:34 03/11/17 07:34 Laboratory Tests 03/10/17 03/10/17 03/10/17 07:51 11:52 16:40 POC Glucose (mg/dL) 303 H 254 H 218 H 03/10/17 03/11/17 20:25 07:44 POC Glucose (mg/dL) 289 H 209 H
[2017-03-11] MEDS ORDERED: Polyethylene Glycol 3350* 17 GM PACKET PO ONE (12:56)
--- NOTE | 2017-03-11 15:22 | PN ---
Subjective - Subjective Service Type: 91121 Hosp care 25 min moderate complexity Subjective: Patient seen by advertising copy writer in absence of attending psychiatrist. Patient lying in bed upon approach, easy to rouse. She reports her mood is "okay." She endorses AH of a male voice "telling me to jump in front of a car. " She denies other AH or VH. She endorses intrusive thoughts of killing a frog. She reports these are anxiety provoking but is able to cope with meditation. She reports poor sleep last night and that lorazepam "helped a little bit." Patient notified of improved BG readings. She c/o constipation and no BM for 3 days. She denies urinary incontinence. Objective - Appearance Appearance: Obese Dysmorphic Features: Yes Hygiene: Normal Grooming: Fairly Well Kept - Behavior Psychomotor Activities: Normal Exhibits Abnormal Movement: No - Attitude and Relatedness Attitude and Relatedness: Withdrawn Eye Contact: Good - Speech Quality: Unpressured Latencies: Short Quantity: Terse - Mood Patient's Decription of Mood: "Okay" - Affect Observed Affect: Good Affect Consistent with: Euthymia - Thought Process Patient's Thought Process: Coherent, Goal Directed, Impoverished Thought Content: No Passive Wish, No Suicidal Planning, No Homicidal Ideation, No Paranoid Ideation - Sensorium Experiencing Hallucinations: Yes Type of Hallucinations: Visual: No, Auditory: Yes, Command: Yes - Level of Consciousness Level of Consciousness: Alert Orientation: Yes Intact, Yes Orientated to Time, Yes Orientated to Place, Yes Orientated to Person - Impulse Control Impulse Control: Intact - in this setting - Insight and Judgement Insight and Judgement: Fair - Group Participation Particating in Group Activities: No - Medication Management Medication Management Adherence: Yes Assessment - Assessment Merits Inpatient Hospitalization: For Immediate Safety, For Stabilization, For Ongoing Evaluation, Consolidate Improvements, Pending Safe DC Plan Inpatient DSM-IV Dx: schizoaffective d/o, depressed type. Plan - Plan Treatment Plan: Name: JENNIFFER MILAN Birthdate: 1965 [id number] continue acute intensive psychiatric treatment. add miralax x1 and change colace from prn to scheduled while in this setting. Diabetes mgmt being followed with assistance from hospitalist service. Continued Medication Management: Start Medication Medications: Current Medications Acetaminophen (Tylenol Tab*) 325 mg PO Q6H PRN PRN Reason: PAIN Last Admin: 03/11/17 09:09 Dose: 325 mg Al Hydrox/Mg Hydrox/Simethicone (Maalox Plus*) 30 ml PO Q4H PRN PRN Reason: INDIGESTION Albuterol (Ventolin Hfa Inhaler*) 1 puff INH Q6H PRN PRN Reason: SHORTNESS OF BREATH Atorvastatin Calcium (Lipitor*) 20 mg PO BEDTIME [facility] Last Admin: 03/10/17 20:22 Dose: 20 mg Canagliflozin (Invokana (Nf)) 100 mg PO DAILY [facility] Last Admin: 03/11/17 08:33 Dose: Not Given Clozapine (Clozapine Tab*) 200 mg PO BEDTIME [facility] Last Admin: 03/10/17 20:22 Dose: 200 mg Clozapine (Clozapine Tab*) 50 mg PO BEDTIME [facility] Last Admin: 03/10/17 20:22 Dose: 50 mg Dextrose (D50w Syringe 50 Ml*) 12.5 gm IV PUSH .FOR FS < 60 - SS PRN PRN Reason: FS < 60 Docusate Sodium (Colace Cap*) 100 mg PO BID [facility] Fluconazole (Diflucan 100 Mg Tab*) 100 mg PO DAILY [facility] Last Admin: 03/11/17 09:13 Dose: 100 mg Fluoxetine HCl (Prozac Cap*) 40 mg PO QAM [facility] Last Admin: 03/11/17 09:12 Dose: 40 mg Fluticasone Propionate (Flonase Nasal [place] 50mcg*) 2 spray BOTH NARES DAILY [facility] Last Admin: 03/11/17 09:12 Dose: 2 spray Insulin Glargine (Lantus(*)) 40 units SUBCUT 2100 [facility] Insulin Human Lispro (Humalog*) 0 units SUBCUT ACHS [facility] PRN Reason: Protocol Last Admin: 03/11/17 12:01 Dose: 4 units Levothyroxine Sodium (Synthroid Tab*) 88 mcg PO DAILY@0600 [facility] Last Admin: 03/11/17 07:39 Dose: 88 mcg [place] Carbonate ([place] Carbonate Tab*) 600 mg PO BID [facility] Last Admin: 03/11/17 09:13 Dose: 600 mg Lurasidone HCl (Latuda) 120 mg PO 1700 [facility] Last Admin: 03/10/17 16:46 Dose: 120 mg Metformin HCl (Glucophage*) 1,000 mg PO BID [facility] Last Admin: 03/11/17 09:12 Dose: 1,000 mg Mometasone Furoate/Formoterol Fumar (Dulera 200/5 Mdi*) 2 puff INH BID [facility] Last Admin: 03/11/17 09:11 Dose: 2 puff Multivitamins (Theragran Tab*) 1 tab PO DAILY [facility] Last Admin: 03/11/17 09:10 Dose: 1 tab Nicotine (Nicotine Inhaler*) 10 mg INH Q2H PRN PRN Reason: CRAVING Nicotine Polacrilex (Nicotine Gum*) 2 mg PO Q2H PRN PRN Reason: CRAVING Omeprazole (Prilosec Cap*) 40 mg PO DAILY [facility] Last Admin: 03/11/17 09:11 Dose: 40 mg Sitagliptin Phosphate (Januvia (Nf)) 100 mg PO DAILY [facility] Last Admin: 03/11/17 09:14 Dose: 100 mg Temazepam (Restoril Cap*) 15 mg PO BEDTIME [facility] Last Admin: 03/10/17 20:22 Dose: 15 mg Topiramate (Topamax(*)) 100 mg PO BID [facility] Last Admin: 03/11/17 09:12 Dose: 100 mg - Discharge Plan Discharge Plan: [facility]
[2017-03-11] MEDS: Lurasidone(*) 120 MG TAB PO SCH (16:45)
[2017-03-11] MEDS: Atorvastatin* 20 MG TAB PO SCH (20:17)
[2017-03-11] MEDS: CloZAPine TAB* 25 MG TAB PO SCH (20:18)
[2017-03-11] MEDS: Docusate CAP* 100 MG PO SCH (20:18)
[2017-03-11] MEDS: CloZAPine TAB* 100 MG TAB PO SCH (20:18)
[2017-03-11] MEDS: Temazepam CAP* 15 MG PO SCH (20:18)
[2017-03-11] MEDS ORDERED: Insulin GLARGINE(*) 1 UNITS UNIT SUBCUT SCH (21:00)
[2017-03-12] MEDS: Levothyroxine TAB* 88 MCG TAB PO SCH (06:00)
[2017-03-12] MEDS: Insulin LISPRO* 1 UNITS UNIT SUBCUT SCH ×4 (07:39→21:16)
[2017-03-12] MEDS: Canagliflozin (NF) 100 MG TAB PO SCH (08:05)
[2017-03-12 08:46] LABS: Clozapine <25 ng/mL (>350); Norclozapine <25 ng/mL
[2017-03-12] MEDS: Vitamin THERAPEUTIC TAB PO SCH (09:08)
[2017-03-12] MEDS: FLUoxetine CAP* 20 MG PO SCH (09:08)
[2017-03-12] MEDS: CMCS - SitaGLIPtin (NF) 100 MG TAB PO SCH (09:08)
[2017-03-12] MEDS: Omeprazole CAP* 20 MG PO SCH (09:08)
[2017-03-12] MEDS: Docusate CAP* 100 MG PO SCH ×2 (09:08→21:04)
[2017-03-12] MEDS: metFORMIN* 1,000 MG TAB PO SCH ×2 (09:08→21:04)
[2017-03-12] MEDS: Fluconazole 100 MG TAB* TAB PO SCH (09:08)
[2017-03-12] MEDS: Topiramate TAB(*) 100 MG PO SCH ×2 (09:09→21:05)
[2017-03-12] MEDS: Fluticasone NASAL SPRAY 50MCG* 16 gm SPRAY BTL BOTH NARES SCH (09:09)
[2017-03-12] MEDS: Mometasone/Formoter 200/5 MDI INH SCH (09:09)
[2017-03-12] MEDS: Lithium Carbonate TAB* 300 MG PO SCH ×2 (09:09→21:04)
--- NOTE | 2017-03-12 11:13 | PN ---
Subjective - Subjective Date of Service: 03/12/17 Service Type: 09900 Hosp care 25 min moderate complexity Subjective: patient continues to report auditory hallucination telling her to harm self. She attended all groups. she actively participated in medication education group today. she shared that in fact several weeks ago she stopped all of her psychiatric medications for a two week period. and then restarted them after noticing that she was feeling more depressed and started having intrusive thoughts. Blood sugars remain elevated but lower than previously AC finger sticks have been in 200 to 300 range on Lantus 40 units daily Labs: EKG completed yesterday shows QTC of 471 which is increase from 450 to 460 range (Feb 2016) Objective - Appearance Appearance: Obese Dysmorphic Features: No Hygiene: Dirty Grooming: Disheveled - Behavior Psychomotor Activities: Abnormal-Decreased Exhibits Abnormal Movement: No - Attitude and Relatedness Attitude and Relatedness: Cooperative Eye Contact: Fair - Speech Quality: Unpressured Latencies: Normal Quantity: Terse - Mood Patient's Decription of Mood: "Sad" - Affect Observed Affect: Constricted Affect Consistent with: Dysphoria - Thought Process Patient's Thought Process: Coherent, Impoverished Thought Content: Yes Passive Wish, No Suicidal Planning, No Homicidal Ideation, No Paranoid Ideation - Sensorium Experiencing Hallucinations: Yes - command halllucinations which are derogatory , telling her to end her life, telling her she is worthless Type of Hallucinations: Visual: No, Auditory: Yes, Command: Yes - see above - Level of Consciousness Level of Consciousness: Alert Orientation: Yes Intact, Yes Orientated to Time, Yes Orientated to Place, Yes Orientated to Person - Impulse Control Impulse Control: Intact - Insight and Judgement Insight and Judgement: Fair - Group Participation Particating in Group Activities: Yes - Medication Management Medication Management Adherence: Yes Assessment - Assessment Merits Inpatient Hospitalization: For Immediate Safety, For Stabilization, For Ongoing Evaluation, For Discharge Planning Inpatient DSM-IV Dx: schizoaffective d/o, depressed type. Clinical Impression: 52 yo with history of schizoaffective disorder currently depressed. patient admitted with depression and exacerbation of psychotic symptoms (comman hallucinations, intrusive thoughts, and suicidal ideation) as well as inability to care for herself in the community. deterioration in mental status occurred in context of poorly controlled diabetes, decrease in clozapine dosage, and partial medication non adherance. Patient remains gravely disabled and has Suicidal ideation and command hallucinations which make her potential danger to self. She requires on going psychiatric treatment on inpatient hospital unit to closely monitor mental status, adjust psych. medications to target symtoms. She also has metabolic syndrome with severe hyperglycemia which is requiring daily consultation with hospitalist service. Insulin long and short acting was recently introduced and is being adjusted. Elevated QTc futher complicates her stay necessitating discontinuation of Latuda. Plan - Plan Treatment Plan: d/c Latuda secondary to QTc of 471 Will Increase Clozapine from 250 to 300 mg tonight and repeat EKG thursday and thursday to check QTc continue [place] 600 mg BID repeat [place] level, cbc, ANC, Free T4, Total T4 Temazepam 15 mg QHS Prozac 40 mg qhs Topiramate 100 mg BID Medications:
[2017-03-12] MEDS: Temazepam CAP* 15 MG PO SCH (21:04)
[2017-03-12] MEDS: CloZAPine TAB* 100 MG TAB PO SCH (21:04)
[2017-03-12] MEDS: Atorvastatin* 20 MG TAB PO SCH (21:05)
[2017-03-12] MEDS: Insulin GLARGINE(*) 1 UNITS UNIT SUBCUT SCH (21:16)
[2017-03-13] MEDS: Mometasone/Formoter 200/5 MDI INH SCH ×3 (02:00→20:20)
[2017-03-13] MEDS: Nystatin TOP POWDER* 15 GM BTL TOPICAL SCH ×3 (05:50→20:19)
[2017-03-13] MEDS: Levothyroxine TAB* 88 MCG TAB PO SCH (05:56)
[2017-03-13] MEDS: Insulin LISPRO* 1 UNITS UNIT SUBCUT SCH ×3 (07:39→16:55)
[2017-03-13 08:17] LABS: Hematocrit 37 % (35-47); Hemoglobin 12.4 g/dl (12.0-16.0); Mean Corpuscular HGB Conc 33 g/dl (31-36); Mean Corpuscular Hemoglobin 30 pg (27-31); Mean Corpuscular Volume 90 fL (80-97); Mean Platelet Volume 9 um3 (7.4-10.4); Red Blood Count 4.17 10^6/ul (4.0-5.4); Red Cell Distribution Width 15 % (10.5-15); White Blood Count 7.2 10^3/ul (3.5-10.8)
[2017-03-13 08:26] LABS: Calcium 9.7 mg/dL (8.6-10.3); EGFR African American 66.6 (>60); EGFR Non-African American 51.8 (>60); Potassium 3.8 mmol/L (3.5-5.0)
[2017-03-13] MEDS: Omeprazole CAP* 20 MG PO SCH (08:48)
[2017-03-13] MEDS: CMCS - SitaGLIPtin (NF) 100 MG TAB PO SCH (08:48)
[2017-03-13] MEDS: Docusate CAP* 100 MG PO SCH ×2 (08:48→20:14)
[2017-03-13] MEDS: FLUoxetine CAP* 20 MG PO SCH (08:48)
[2017-03-13] MEDS: Fluconazole 100 MG TAB* TAB PO SCH (08:49)
[2017-03-13] MEDS: Vitamin THERAPEUTIC TAB PO SCH (08:49)
[2017-03-13] MEDS: Lithium Carbonate TAB* 300 MG PO SCH ×2 (08:49→20:13)
[2017-03-13] MEDS: metFORMIN* 1,000 MG TAB PO SCH ×2 (08:49→20:14)
[2017-03-13] MEDS: Topiramate TAB(*) 100 MG PO SCH ×2 (08:49→20:14)
[2017-03-13] MEDS: Fluticasone NASAL SPRAY 50MCG* 16 gm SPRAY BTL BOTH NARES SCH (08:51)
[2017-03-13] MEDS ORDERED: Dextrose 50% Syringe 50 ML* 25 GM/50 ML SYRINGE IV PUSH PRN (09:35)
--- NOTE | 2017-03-13 11:15 | PN ---
Subjective - Subjective Date of Service: 03/13/17 Service Type: 55377 Hosp care 15 min low complexity Subjective: Attending all groups. continues with dysphoric mood. flat affect auditory hallucinations present and tell patient that she should just end it all continues to contract for safety patient reported pruritic foul smelling rash beneath right breast. she has poor hygiene and only showers every 3 days I visually inspected rash this afternoon with nursing present. undersurface of right breast and abdomen directly beneath breast with confluent macular rash which has mild swelling. one area of maceration beginning to ooze. foul smelling opposite breast with poor hygiene but no rash Objective - Appearance Appearance: Obese Dysmorphic Features: No Hygiene: Dirty Grooming: Disheveled - Behavior Psychomotor Activities: Abnormal-Decreased Exhibits Abnormal Movement: No - Attitude and Relatedness Attitude and Relatedness: Regressed Eye Contact: Fair - Speech Quality: Unpressured Latencies: Short Quantity: Terse - Mood Patient's Decription of Mood: depressed - Affect Observed Affect: Constricted Affect Consistent with: Dysphoria - Thought Process Patient's Thought Process: Impoverished Thought Content: No Passive Wish, No Suicidal Planning, No Homicidal Ideation, No Paranoid Ideation - Sensorium Experiencing Hallucinations: Yes Type of Hallucinations: Visual: No, Auditory: Yes, Command: Yes - Level of Consciousness Level of Consciousness: Lethargic Orientation: Yes Intact, Yes Orientated to Time, Yes Orientated to Place, Yes Orientated to Person - Impulse Control Impulse Control: Intact - Group Participation Particating in Group Activities: Yes - Medication Management Medication Management Adherence: Yes Assessment - Assessment Merits Inpatient Hospitalization: For Immediate Safety, For Stabilization, For Discharge Planning Inpatient DSM-IV Dx: schizoaffective d/o, depressed type. Clinical Impression: 52 yo with history of schizoaffective disorder currently depressed. patient admitted with depression and exacerbation of psychotic symptoms (comman hallucinations, intrusive thoughts, and suicidal ideation) as well as inability to care for herself in the community. deterioration in mental status occurred in context of poorly controlled diabetes, decrease in clozapine dosage, and partial medication non adherance. Patient remains gravely disabled and has Suicidal ideation and command hallucinations which make her potential danger to self. She requires on going psychiatric treatment on inpatient hospital unit to closely monitor mental status, adjust psych. medications to target symtoms. She also has metabolic syndrome with severe hyperglycemia which is requiring daily consultation with hospitalist service. Insulin long and short acting was recently introduced and is being adjusted. Elevated QTc futher complicates her stay necessitating discontinuation of Latuda on 03/12/2017. clozaril being titrated up to target psychotic symptoms. Plan - Plan Treatment Plan: Latuda Discontinued yestereday secondary to QTc of 471 Clozapine currently at 300 qhs repeat ekg tomorrow to check QTc continue [place] 600 mg BID repeat [place] level, cbc, ANC, Free T4, Total T4 Temazepam 15 mg QHS Prozac 40 mg qhs Topiramate 100 mg BID Medications:
[2017-03-13] MEDS: Cephalexin CAP* 500 MG PO SCH ×2 (16:54→20:13)
[2017-03-13] MEDS: Atorvastatin* 20 MG TAB PO SCH (20:13)
[2017-03-13] MEDS: CloZAPine TAB* 100 MG TAB PO SCH (20:13)
[2017-03-13] MEDS: Temazepam CAP* 15 MG PO SCH (20:14)
[2017-03-13] MEDS: Insulin GLARGINE(*) 1 UNITS UNIT SUBCUT SCH (20:15)
[2017-03-13] MEDS: Clotrimazole 1% CREAM* 30 GM TOPICAL SCH (20:19)
[2017-03-14] MEDS: Levothyroxine TAB* 88 MCG TAB PO SCH (06:25)
[2017-03-14] MEDS: Insulin LISPRO* 1 UNITS UNIT SUBCUT SCH ×3 (08:04→16:42)
[2017-03-14] MEDS: Lithium Carbonate TAB* 300 MG PO SCH ×2 (08:40→20:10)
[2017-03-14] MEDS: Docusate CAP* 100 MG PO SCH ×2 (08:40→20:11)
[2017-03-14] MEDS: Vitamin THERAPEUTIC TAB PO SCH (08:40)
[2017-03-14] MEDS: Topiramate TAB(*) 100 MG PO SCH ×2 (08:40→20:11)
[2017-03-14] MEDS: Fluticasone NASAL SPRAY 50MCG* 16 gm SPRAY BTL BOTH NARES SCH (08:41)
[2017-03-14] MEDS: Fluconazole 100 MG TAB* TAB PO SCH (08:41)
[2017-03-14] MEDS: Omeprazole CAP* 20 MG PO SCH (08:41)
[2017-03-14] MEDS: CMCS - SitaGLIPtin (NF) 100 MG TAB PO SCH (08:41)
[2017-03-14] MEDS: FLUoxetine CAP* 20 MG PO SCH (08:41)
[2017-03-14] MEDS: Cephalexin CAP* 500 MG PO SCH ×2 (08:41→13:31)
[2017-03-14] MEDS: metFORMIN* 1,000 MG TAB PO SCH ×2 (08:41→20:10)
[2017-03-14] MEDS: Nystatin TOP POWDER* 15 GM BTL TOPICAL SCH ×3 (08:47→20:38)
[2017-03-14] MEDS: Mometasone/Formoter 200/5 MDI INH SCH ×2 (08:47→20:09)
[2017-03-14] MEDS: Clotrimazole 1% CREAM* 30 GM TOPICAL SCH ×2 (09:38→20:27)
--- NOTE | 2017-03-14 11:16 | PN ---
Subjective Date of Service: 03/14/17 Interval History: Seen and examined with nursing present Pain under right breast when she moves or touches rash Otherwise no complaints to this author Feels rash is stable or slightly improved Objective Active Medications: Acetaminophen (Tylenol Tab*) 325 mg PO Q6H PRN PRN Reason: PAIN Last Admin: 03/11/17 09:09 Dose: 325 mg Al Hydrox/Mg Hydrox/Simethicone (Maalox Plus*) 30 ml PO Q4H PRN PRN Reason: INDIGESTION Albuterol (Ventolin Hfa Inhaler*) 1 puff INH Q6H PRN PRN Reason: SHORTNESS OF BREATH Atorvastatin Calcium (Lipitor*) 20 mg PO BEDTIME [facility] Last Admin: 03/13/17 20:13 Dose: 20 mg Cephalexin HCl (Keflex Cap*) 500 mg PO QID [facility] Stop: 03/18/17 16:59 Last Admin: 03/14/17 08:41 Dose: 500 mg Clotrimazole (Clotrimazole 1%*) 1 applic TOPICAL BID [facility] Stop: 03/20/17 21:00 Last Admin: 03/14/17 09:38 Dose: 1 applic Clozapine (Clozapine Tab*) 300 mg PO BEDTIME [facility] Last Admin: 03/13/17 20:13 Dose: 300 mg Dextrose (D50w Syringe 50 Ml*) 12.5 gm IV PUSH .FOR FS < 60 - SS PRN PRN Reason: FS < 60 Docusate Sodium (Colace Cap*) 100 mg PO BID [facility] Last Admin: 03/14/17 08:40 Dose: 100 mg Fluconazole (Diflucan 100 Mg Tab*) 100 mg PO DAILY [facility] Last Admin: 03/14/17 08:41 Dose: 100 mg Fluoxetine HCl (Prozac Cap*) 40 mg PO QAM [facility] Last Admin: 03/14/17 08:41 Dose: 40 mg Fluticasone Propionate (Flonase Nasal [place] 50mcg*) 2 spray BOTH NARES DAILY [facility] Last Admin: 03/14/17 08:41 Dose: 2 spray Insulin Glargine (Lantus(*)) 44 units SUBCUT 2100 [facility] Last Admin: 03/13/17 20:15 Dose: 44 units Insulin Human Lispro (Humalog*) 8 units SUBCUT AC [facility] Last Admin: 03/14/17 08:04 Dose: 8 units Levothyroxine Sodium (Synthroid Tab*) 88 mcg PO DAILY@0600 [facility] Last Admin: 03/14/17 06:25 Dose: 88 mcg [place] Carbonate ([place] Carbonate Tab*) 600 mg PO BID [facility] Last Admin: 03/14/17 08:40 Dose: 600 mg Metformin HCl (Glucophage*) 1,000 mg PO BID [facility] Last Admin: 03/14/17 08:41 Dose: 1,000 mg Mometasone Furoate/Formoterol Fumar (Dulera 200/5 Mdi*) 2 puff INH BID [facility] Last Admin: 03/14/17 08:47 Dose: 2 puff Multivitamins (Theragran Tab*) 1 tab PO DAILY [facility] Last Admin: 03/14/17 08:40 Dose: 1 tab Nicotine (Nicotine Inhaler*) 10 mg INH Q2H PRN PRN Reason: CRAVING Nicotine Polacrilex (Nicotine Gum*) 2 mg PO Q2H PRN PRN Reason: CRAVING Nystatin (Nystatin Top Powder*) 1 applic TOPICAL BID [facility] Last Admin: 03/14/17 08:47 Dose: Not Given Omeprazole (Prilosec Cap*) 40 mg PO DAILY [facility] Last Admin: 03/14/17 08:41 Dose: 40 mg Sitagliptin Phosphate (Januvia (Nf)) 100 mg PO DAILY [facility] Last Admin: 03/14/17 08:41 Dose: 100 mg Temazepam (Restoril Cap*) 15 mg PO BEDTIME [facility] Last Admin: 03/13/17 20:14 Dose: 15 mg Topiramate (Topamax(*)) 100 mg PO BID [facility] Last Admin: 03/14/17 08:40 Dose: 100 mg Vital Signs - 8 hr 03/14/17 03/14/17 07:58 10:00 Temperature 97.6 F Pulse Rate 87 Respiratory 16 18 Rate Blood Pressure 143/93 (mmHg) O2 Sat by Pulse 97 Oximetry Oxygen Devices in Use Now: None Appearance: NAD Eyes: No Scleral Icterus Ears/Nose/Mouth/Throat: NL Teeth, Lips, Gums, Clear Oropharnyx, Mucous Membranes Moist Neck: NL Appearance and Movements; NL JVP, Trachea Midline Respiratory: Symmetrical Chest Expansion and Respiratory Effort, Clear to Auscultation Cardiovascular: RRR Abdominal: NL Sounds; No Tenderness; No Distention, No Hepatosplenomegaly Lymphatic: No Cervical Adenopathy Extremities: No Edema Skin: - - erythematous rash under right breast with well demarcated edges, small healing ulceration over upper lip at [place] border Neurological: Alert and Oriented x 3 Result Diagrams: 03/13/17 07:46 03/13/17 07:46 Additional Lab and Data: Lab Results 03/06/17 Range/Units 11:15 WBC 7.0 (3.5-10.8) 10^3/ul RBC 4.42 (4.0-5.4) 10^6/ul Hgb 13.2 (12.0-16.0) g/dl Hct 39 (35-47) % MCV 87 (80-97) fL MCH 30 (27-31) pg MCHC 34 (31-36) g/dl RDW 15 (10.5-15) % Plt Count 214 (150-450) 10^3/ul MPV 8 (7.4-10.4) um3 Neut % (Auto) 72.2 (38-83) % Lymph % (Auto) 18.3 L (25-47) % [facility] % (Auto) 7.1 (1-9) % Eos % (Auto) 1.8 (0-6) % Baso % (Auto) 0.6 (0-2) % Absolute Neuts (auto) 5.1 (1.5-7.7) 10^3/ul Absolute Lymphs (auto) 1.3 (1.0-4.8) 10^3/ul Absolute Monos (auto) 0.5 (0-0.8) 10^3/ul Absolute Eos (auto) 0.1 (0-0.6) 10^3/ul Absolute Basos (auto) 0 (0-0.2) 10^3/ul Absolute Nucleated RBC 0 10^3/ul Nucleated RBC % 0 Assess/Plan/Problems-Billing Assessment: 52 yo F schizoaffective disorder, uncontrolled DM2, fungal unfection under right breast - Patient Problems (1) Candidiasis of breast Comment: c/w clotrimazole cream and monitor If keflex is for rash can discontinue and continue to follow. I do not think this is secondarily infected (2) Diabetes Comment: HbA1c 12% this visit Lantus 44units with acceptable FSG preprandial in AM Lispro SS Metformin Januvia (3) Herpes Comment: healing ulcer on upper lip c/w HSV already healing monitor to resolution Status and Disposition: Will continue to follow
[2017-03-14] MEDS: CloZAPine TAB* 100 MG TAB PO SCH (20:09)
[2017-03-14] MEDS: Temazepam CAP* 15 MG PO SCH (20:10)
[2017-03-14] MEDS: Atorvastatin* 20 MG TAB PO SCH (20:11)
[2017-03-14] MEDS: Insulin GLARGINE(*) 1 UNITS UNIT SUBCUT SCH (20:12)
[2017-03-15] MEDS: Ibuprofen TAB* 400 MG PO PRN (05:51)
[2017-03-15] MEDS: Insulin LISPRO* 1 UNITS UNIT SUBCUT SCH ×3 (07:56→16:39)
[2017-03-15] MEDS: Levothyroxine TAB* 88 MCG TAB PO SCH (07:57)
[2017-03-15] MEDS: Lithium Carbonate TAB* 300 MG PO SCH ×2 (08:24→20:19)
[2017-03-15] MEDS: Omeprazole CAP* 20 MG PO SCH (08:25)
[2017-03-15] MEDS: metFORMIN* 1,000 MG TAB PO SCH ×2 (08:25→20:19)
[2017-03-15] MEDS: Docusate CAP* 100 MG PO SCH ×2 (08:25→20:19)
[2017-03-15] MEDS: Topiramate TAB(*) 100 MG PO SCH ×2 (08:25→20:19)
[2017-03-15] MEDS: Vitamin THERAPEUTIC TAB PO SCH (08:25)
[2017-03-15] MEDS: FLUoxetine CAP* 20 MG PO SCH (08:25)
[2017-03-15] MEDS: Clotrimazole 1% CREAM* 30 GM TOPICAL SCH ×4 (08:26→20:20)
[2017-03-15] MEDS: Fluticasone NASAL SPRAY 50MCG* 16 gm SPRAY BTL BOTH NARES SCH (08:26)
[2017-03-15] MEDS: Fluconazole 100 MG TAB* TAB PO SCH (08:28)
[2017-03-15] MEDS: Nystatin TOP POWDER* 15 GM BTL TOPICAL SCH ×2 (08:29→20:45)
[2017-03-15] MEDS: Mometasone/Formoter 200/5 MDI INH SCH ×2 (09:20→20:18)
[2017-03-15] MEDS: CMCS - SitaGLIPtin (NF) 100 MG TAB PO SCH (09:21)
--- NOTE | 2017-03-15 16:58 | PN ---
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 Pt feels pain is about the same She also feels that her left breast is starting to develop similar rash Objective Active Medications: Acetaminophen (Tylenol Tab*) 325 mg PO Q6H PRN PRN Reason: PAIN Last Admin: 03/11/17 09:09 Dose: 325 mg Al Hydrox/Mg Hydrox/Simethicone (Maalox Plus*) 30 ml PO Q4H PRN PRN Reason: INDIGESTION Albuterol (Ventolin Hfa Inhaler*) 1 puff INH Q6H PRN PRN Reason: SHORTNESS OF BREATH Atorvastatin Calcium (Lipitor*) 20 mg PO BEDTIME [facility] Last Admin: 03/14/17 20:11 Dose: 20 mg Clotrimazole (Clotrimazole 1%*) 1 applic TOPICAL BID [facility] Stop: 03/20/17 21:00 Last Admin: 03/15/17 10:15 Dose: 1 applic Clozapine (Clozapine Tab*) 300 mg PO BEDTIME [facility] Last Admin: 03/14/17 20:09 Dose: 300 mg Dextrose (D50w Syringe 50 Ml*) 12.5 gm IV PUSH .FOR FS < 60 - SS PRN PRN Reason: FS < 60 Docusate Sodium (Colace Cap*) 100 mg PO BID [facility] Last Admin: 03/15/17 08:25 Dose: 100 mg Fluconazole (Diflucan 100 Mg Tab*) 100 mg PO DAILY [facility] Last Admin: 03/15/17 08:28 Dose: 100 mg Fluoxetine HCl (Prozac Cap*) 40 mg PO QAM [facility] Last Admin: 03/15/17 08:25 Dose: 40 mg Fluticasone Propionate (Flonase Nasal [place] 50mcg*) 2 spray BOTH NARES DAILY [facility] Last Admin: 03/15/17 08:26 Dose: 2 spray Ibuprofen (Motrin Tab*) 400 mg PO Q6H PRN PRN Reason: PAIN Last Admin: 03/15/17 05:51 Dose: 400 mg Insulin Glargine (Lantus(*)) 44 units SUBCUT 2100 [facility] Last Admin: 03/14/17 20:12 Dose: 44 units Insulin Human Lispro (Humalog*) 8 units SUBCUT AC [facility] Last Admin: 03/15/17 16:39 Dose: 8 units Levothyroxine Sodium (Synthroid Tab*) 88 mcg PO DAILY@0600 [facility] Last Admin: 03/15/17 07:57 Dose: 88 mcg [place] Carbonate ([place] Carbonate Tab*) 600 mg PO BID [facility] Last Admin: 03/15/17 08:24 Dose: 600 mg Metformin HCl (Glucophage*) 1,000 mg PO BID [facility] Last Admin: 03/15/17 08:25 Dose: 1,000 mg Mometasone Furoate/Formoterol Fumar (Dulera 200/5 Mdi*) 2 puff INH BID [facility] Last Admin: 03/15/17 09:20 Dose: 2 puff Multivitamins (Theragran Tab*) 1 tab PO DAILY [facility] Last Admin: 03/15/17 08:25 Dose: 1 tab Nicotine (Nicotine Inhaler*) 10 mg INH Q2H PRN PRN Reason: CRAVING Nicotine Polacrilex (Nicotine Gum*) 2 mg PO Q2H PRN PRN Reason: CRAVING Nystatin (Nystatin Top Powder*) 1 applic TOPICAL BID [facility] Last Admin: 03/15/17 08:29 Dose: Not Given Omeprazole (Prilosec Cap*) 40 mg PO DAILY [facility] Last Admin: 03/15/17 08:25 Dose: 40 mg Sitagliptin Phosphate (Januvia (Nf)) 100 mg PO DAILY [facility] Last Admin: 03/15/17 09:21 Dose: 100 mg Temazepam (Restoril Cap*) 15 mg PO BEDTIME [facility] Last Admin: 03/14/17 20:10 Dose: 15 mg Topiramate (Topamax(*)) 100 mg PO BID [facility] Last Admin: 03/15/17 08:25 Dose: 100 mg Vital Signs - 8 hr 03/15/17 14:46 Respiratory 16 Rate Oxygen Devices in Use Now: None Appearance: well appearing, NAD Eyes: No Scleral Icterus, PERRLA Ears/Nose/Mouth/Throat: Mucous Membranes Moist Neck: NL Appearance and Movements; NL JVP, Trachea Midline Respiratory: Symmetrical Chest Expansion and Respiratory Effort, Clear to Auscultation Cardiovascular: NL Sounds; No Murmurs; No JVD, RRR Abdominal: NL Sounds; No Tenderness; No Distention Skin: - - erythema under right breast with well defined raised border but improved since yesterday left breast with very faint erythema Neurological: Alert and Oriented x 3 Result Diagrams: 03/13/17 07:46 03/13/17 07:46 Additional Lab and Data: Lab Results 03/06/17 Range/Units 11:15 WBC 7.0 (3.5-10.8) 10^3/ul RBC 4.42 (4.0-5.4) 10^6/ul Hgb 13.2 (12.0-16.0) g/dl Hct 39 (35-47) % MCV 87 (80-97) fL MCH 30 (27-31) pg MCHC 34 (31-36) g/dl RDW 15 (10.5-15) % Plt Count 214 (150-450) 10^3/ul MPV 8 (7.4-10.4) um3 Neut % (Auto) 72.2 (38-83) % Lymph % (Auto) 18.3 L (25-47) % [place] % (Auto) 7.1 (1-9) % Eos % (Auto) 1.8 (0-6) % Baso % (Auto) 0.6 (0-2) % Absolute Neuts (auto) 5.1 (1.5-7.7) 10^3/ul Absolute Lymphs (auto) 1.3 (1.0-4.8) 10^3/ul Absolute Monos (auto) 0.5 (0-0.8) 10^3/ul Absolute Eos (auto) 0.1 (0-0.6) 10^3/ul Absolute Basos (auto) 0 (0-0.2) 10^3/ul Absolute Nucleated RBC 0 10^3/ul Nucleated RBC % 0 Assess/Plan/Problems-Billing Assessment: 52 yo F schizoaffective disorder, uncontrolled DM2, fungal infection under right breast - Patient Problems (1) Candidiasis of breast Comment: Apply clotrimazole under RIGHT AND LEFT breasts c/w clotrimazole cream and monitor If keflex is for rash can discontinue and continue to follow. I do not think this is secondarily infected (2) Diabetes Comment: HbA1c 12% this visit Lantus 44 units with acceptable FSG preprandial in AM Lispro SS Metformin Januvia (3) Herpes Comment: healing ulcer on upper lip c/w HSV already healing monitor to resolution Status and Disposition: Will continue to follow
[2017-03-15] MEDS: CloZAPine TAB* 100 MG TAB PO SCH (20:19)
[2017-03-15] MEDS: Atorvastatin* 20 MG TAB PO SCH (20:19)
[2017-03-15] MEDS: Temazepam CAP* 15 MG PO SCH (20:19)
[2017-03-15] MEDS: Insulin GLARGINE(*) 1 UNITS UNIT SUBCUT SCH (20:21)
[2017-03-16] MEDS: Ibuprofen TAB* 400 MG PO PRN (04:42)
[2017-03-16] MEDS: Insulin LISPRO* 1 UNITS UNIT SUBCUT SCH ×3 (08:10→17:22)
[2017-03-16] MEDS: Fluconazole 100 MG TAB* TAB PO SCH (09:02)
[2017-03-16] MEDS: Mometasone/Formoter 200/5 MDI INH SCH ×2 (09:02→20:20)
[2017-03-16] MEDS: Fluticasone NASAL SPRAY 50MCG* 16 gm SPRAY BTL BOTH NARES SCH (09:02)
[2017-03-16] MEDS: CMCS - SitaGLIPtin (NF) 100 MG TAB PO SCH (09:02)
[2017-03-16] MEDS: Levothyroxine TAB* 88 MCG TAB PO SCH (09:02)
[2017-03-16] MEDS: metFORMIN* 1,000 MG TAB PO SCH ×2 (09:03→20:22)
[2017-03-16] MEDS: Vitamin THERAPEUTIC TAB PO SCH (09:03)
[2017-03-16] MEDS: Omeprazole CAP* 20 MG PO SCH (09:03)
[2017-03-16] MEDS: Topiramate TAB(*) 100 MG PO SCH ×2 (09:03→20:22)
[2017-03-16] MEDS: Docusate CAP* 100 MG PO SCH ×2 (09:03→20:22)
[2017-03-16] MEDS: FLUoxetine CAP* 20 MG PO SCH (09:03)
[2017-03-16] MEDS: Lithium Carbonate TAB* 300 MG PO SCH ×2 (09:03→20:22)
[2017-03-16] MEDS: Nystatin TOP POWDER* 15 GM BTL TOPICAL SCH ×2 (09:05→20:33)
[2017-03-16] MEDS: Clotrimazole 1% CREAM* 30 GM TOPICAL SCH ×2 (09:49→20:20)
--- NOTE | 2017-03-16 11:31 | PN ---
Subjective - Subjective Date of Service: 03/16/17 Service Type: 12122 Hosp care 15 min low complexity Subjective: Patient made further mental status gains over the weekend. She reports that her mood has improved. She feels motivation, energy and overall mood are better. She also reports sleeping much better with increase in Clozapine. Attending all groups. Patient does report that she continues to have intermittent voice which tells her that she should jump in front of car. However, she quickly follows this statement with "But I would never do it. I have been hearing those kind of voices for years. but since coming here Im hearing them much less" Patient was seen over weekend by Hospitalist Diabetes under much better control on current insulin regimen with blood sugars in 100 to 200 range for past two days Rash beneath right breast also is improving. Objective - Appearance Appearance: Obese Dysmorphic Features: No Hygiene: Normal Grooming: Fairly Well Kept - Behavior Psychomotor Activities: Abnormal-Decreased Exhibits Abnormal Movement: No - Attitude and Relatedness Attitude and Relatedness: Cooperative Eye Contact: Good - Speech Quality: Unpressured Latencies: Short Quantity: Terse - Mood Patient's Decription of Mood: "better, not so depressed like before" - Affect Observed Affect: Constricted Affect Consistent with: Euthymia - Thought Process Patient's Thought Process: Coherent, Impoverished Thought Content: No Passive Wish, No Suicidal Planning, No Homicidal Ideation, No Paranoid Ideation - Sensorium Experiencing Hallucinations: Yes Type of Hallucinations: Visual: No, Auditory: Yes - intermittent but less frequent than on admission, Command: Yes - will tell her to do something unsafe. patient reports that she never has urge or intention to act on the command - Level of Consciousness Level of Consciousness: Alert Orientation: Yes Intact, Yes Orientated to Time, Yes Orientated to Place, Yes Orientated to Person - Impulse Control Impulse Control: Intact - Insight and Judgement Insight and Judgement: Good - Group Participation Particating in Group Activities: Yes - Medication Management Medication Management Adherence: Yes Assessment - Assessment Merits Inpatient Hospitalization: Consolidate Improvements, For Discharge Planning Inpatient DSM-IV Dx: schizoaffective d/o, depressed type. Clinical Impression: 52 yo with history of schizoaffective disorder currently depressed. patient admitted with depression and exacerbation of psychotic symptoms (comman hallucinations, intrusive thoughts, and suicidal ideation) as well as inability to care for herself in the community. deterioration in mental status occurred in context of poorly controlled diabetes, decrease in clozapine dosage, and partial medication non adherance. Patient remains gravely disabled and has Suicidal ideation and command hallucinations which make her potential danger to self. She requires on going psychiatric treatment on inpatient hospital unit to closely monitor mental status, adjust psych. medications to target symtoms. She also has metabolic syndrome with severe hyperglycemia which is requiring daily consultation with hospitalist service. Insulin long and short acting was recently introduced and is being adjusted. Elevated QTc futher complicates her stay necessitating discontinuation of Latuda on 03/12/2017. clozaril being titrated up to target psychotic symptoms. Weekend went well for patient. mood brighter , attended and participated in all groups. frequency of auditory hallucinations reported as decreased Patient continues to have occasional command hallcuinations which command her to harm self However, she has had this for most of her life and reports that she has never acted upon it. patient feels that she is close to her baseline mental status and feels that she would like discharge soon. Plan - Plan Treatment Plan: s/p discontinuation of Latuda 120 mg secondary to QTc of 471 Clozapine currently at 300 qhs repeat ekg today (not done over weekend) to check QTc continue [place] 600 mg BID. repeat [place] level, cbc, ANC, Free T4, Total T4 Temazepam 15 mg QHS Prozac 40 mg qhs Topiramate 100 mg BID insulin regimen as per hospitalist plan is to discharge patient on 03/18/2017 Medications: Current Medications Acetaminophen (Tylenol Tab*) 325 mg PO Q6H PRN PRN Reason: PAIN Last Admin: 03/11/17 09:09 Dose: 325 mg Al Hydrox/Mg Hydrox/Simethicone (Maalox Plus*) 30 ml PO Q4H PRN PRN Reason: INDIGESTION Albuterol (Ventolin Hfa Inhaler*) 1 puff INH Q6H PRN PRN Reason: SHORTNESS OF BREATH Atorvastatin Calcium (Lipitor*) 20 mg PO BEDTIME [facility] Last Admin: 03/15/17 20:19 Dose: 20 mg Clotrimazole (Clotrimazole 1%*) 1 applic TOPICAL BID [facility] Stop: 03/20/17 21:00 Last Admin: 03/16/17 09:49 Dose: 1 applic Clozapine (Clozapine Tab*) 300 mg PO BEDTIME [facility] Last Admin: 03/15/17 20:19 Dose: 300 mg Dextrose (D50w Syringe 50 Ml*) 12.5 gm IV PUSH .FOR FS < 60 - SS PRN PRN Reason: FS < 60 Docusate Sodium (Colace Cap*) 100 mg PO BID [facility] Last Admin: 03/16/17 09:03 Dose: 100 mg Fluconazole (Diflucan 100 Mg Tab*) 100 mg PO DAILY [facility] Last Admin: 03/16/17 09:02 Dose: 100 mg Fluoxetine HCl (Prozac Cap*) 40 mg PO QAM [facility] Last Admin: 03/16/17 09:03 Dose: 40 mg Fluticasone Propionate (Flonase Nasal [place] 50mcg*) 2 spray BOTH NARES DAILY [facility] Last Admin: 03/16/17 09:02 Dose: 2 spray Ibuprofen (Motrin Tab*) 400 mg PO Q6H PRN PRN Reason: PAIN Last Admin: 03/16/17 04:42 Dose: 400 mg Insulin Glargine (Lantus(*)) 44 units SUBCUT 2100 [facility] Last Admin: 03/15/17 20:21 Dose: 44 units Insulin Human Lispro (Humalog*) 8 units SUBCUT AC [facility] Last Admin: 03/16/17 08:10 Dose: 8 units Levothyroxine Sodium (Synthroid Tab*) 88 mcg PO DAILY@0600 [facility] Last Admin: 03/16/17 09:02 Dose: 88 mcg [place] Carbonate ([place] Carbonate Tab*) 600 mg PO BID [facility] Last Admin: 03/16/17 09:03 Dose: 600 mg Metformin HCl (Glucophage*) 1,000 mg PO BID [facility] Last Admin: 03/16/17 09:03 Dose: 1,000 mg Mometasone Furoate/Formoterol Fumar (Dulera 200/5 Mdi*) 2 puff INH BID [facility] Last Admin: 03/16/17 09:02 Dose: 2 puff Multivitamins (Theragran Tab*) 1 tab PO DAILY [facility] Last Admin: 03/16/17 09:03 Dose: 1 tab Nicotine (Nicotine Inhaler*) 10 mg INH Q2H PRN PRN Reason: CRAVING Nicotine Polacrilex (Nicotine Gum*) 2 mg PO Q2H PRN PRN Reason: CRAVING Nystatin (Nystatin Top Powder*) 1 applic TOPICAL BID [facility] Last Admin: 03/16/17 09:05 Dose: Not Given Omeprazole (Prilosec Cap*) 40 mg PO DAILY [facility] Last Admin: 03/16/17 09:03 Dose: 40 mg Sitagliptin Phosphate (Januvia (Nf)) 100 mg PO DAILY [facility] Last Admin: 03/16/17 09:02 Dose: 100 mg Temazepam (Restoril Cap*) 15 mg PO BEDTIME [facility] Last Admin: 03/15/17 20:19 Dose: 15 mg Topiramate (Topamax(*)) 100 mg PO BID [facility] Last Admin: 03/16/17 09:03 Dose: 100 mg
--- NOTE | 2017-03-16 17:03 | PN ---
Subjective Date of Service: 03/16/17 Interval History: Pain under right breast improved. Slight pain under left breast Objective Active Medications: Acetaminophen (Tylenol Tab*) 325 mg PO Q6H PRN PRN Reason: PAIN Last Admin: 03/11/17 09:09 Dose: 325 mg Al Hydrox/Mg Hydrox/Simethicone (Maalox Plus*) 30 ml PO Q4H PRN PRN Reason: INDIGESTION Albuterol (Ventolin Hfa Inhaler*) 1 puff INH Q6H PRN PRN Reason: SHORTNESS OF BREATH Atorvastatin Calcium (Lipitor*) 20 mg PO BEDTIME [facility] Last Admin: 03/15/17 20:19 Dose: 20 mg Clotrimazole (Clotrimazole 1%*) 1 applic TOPICAL BID [facility] Stop: 03/20/17 21:00 Last Admin: 03/16/17 09:49 Dose: 1 applic Clozapine (Clozapine Tab*) 300 mg PO BEDTIME [facility] Last Admin: 03/15/17 20:19 Dose: 300 mg Dextrose (D50w Syringe 50 Ml*) 12.5 gm IV PUSH .FOR FS < 60 - SS PRN PRN Reason: FS < 60 Docusate Sodium (Colace Cap*) 100 mg PO BID [facility] Last Admin: 03/16/17 09:03 Dose: 100 mg Fluoxetine HCl (Prozac Cap*) 40 mg PO QAM [facility] Last Admin: 03/16/17 09:03 Dose: 40 mg Fluticasone Propionate (Flonase Nasal [place] 50mcg*) 2 spray BOTH NARES DAILY [facility] Last Admin: 03/16/17 09:02 Dose: 2 spray Ibuprofen (Motrin Tab*) 400 mg PO Q6H PRN PRN Reason: PAIN Last Admin: 03/16/17 04:42 Dose: 400 mg Insulin Glargine (Lantus(*)) 44 units SUBCUT 2100 [facility] Last Admin: 03/15/17 20:21 Dose: 44 units Insulin Human Lispro (Humalog*) 8 units SUBCUT AC [facility] Last Admin: 03/16/17 12:01 Dose: 8 units Levothyroxine Sodium (Synthroid Tab*) 88 mcg PO DAILY@0600 [facility] Last Admin: 03/16/17 09:02 Dose: 88 mcg [place] Carbonate ([place] Carbonate Tab*) 600 mg PO BID [facility] Last Admin: 03/16/17 09:03 Dose: 600 mg Metformin HCl (Glucophage*) 1,000 mg PO BID [facility] Last Admin: 03/16/17 09:03 Dose: 1,000 mg Mometasone Furoate/Formoterol Fumar (Dulera 200/5 Mdi*) 2 puff INH BID [facility] Last Admin: 03/16/17 09:02 Dose: 2 puff Multivitamins (Theragran Tab*) 1 tab PO DAILY [facility] Last Admin: 03/16/17 09:03 Dose: 1 tab Nicotine (Nicotine Inhaler*) 10 mg INH Q2H PRN PRN Reason: CRAVING Nicotine Polacrilex (Nicotine Gum*) 2 mg PO Q2H PRN PRN Reason: CRAVING Nystatin (Nystatin Top Powder*) 1 applic TOPICAL BID [facility] Last Admin: 03/16/17 09:05 Dose: Not Given Omeprazole (Prilosec Cap*) 40 mg PO DAILY [facility] Last Admin: 03/16/17 09:03 Dose: 40 mg Sitagliptin Phosphate (Januvia (Nf)) 100 mg PO DAILY [facility] Last Admin: 03/16/17 09:02 Dose: 100 mg Temazepam (Restoril Cap*) 15 mg PO BEDTIME [facility] Last Admin: 03/15/17 20:19 Dose: 15 mg Topiramate (Topamax(*)) 100 mg PO BID [facility] Last Admin: 03/16/17 09:03 Dose: 100 mg Oxygen Devices in Use Now: None Appearance: NAD Eyes: No Scleral Icterus Ears/Nose/Mouth/Throat: NL Teeth, Lips, Gums Neck: NL Appearance and Movements; NL JVP Respiratory: Symmetrical Chest Expansion and Respiratory Effort, Clear to Auscultation Cardiovascular: RRR Skin: - - erytehma with raised border under right breast, very slight erythema under left breast Neurological: Alert and Oriented x 3 Result Diagrams: 03/13/17 07:46 03/13/17 07:46 Additional Lab and Data: Lab Results 03/06/17 Range/Units 11:15 WBC 7.0 (3.5-10.8) 10^3/ul RBC 4.42 (4.0-5.4) 10^6/ul Hgb 13.2 (12.0-16.0) g/dl Hct 39 (35-47) % MCV 87 (80-97) fL MCH 30 (27-31) pg MCHC 34 (31-36) g/dl RDW 15 (10.5-15) % Plt Count 214 (150-450) 10^3/ul MPV 8 (7.4-10.4) um3 Neut % (Auto) 72.2 (38-83) % Lymph % (Auto) 18.3 L (25-47) % [place] % (Auto) 7.1 (1-9) % Eos % (Auto) 1.8 (0-6) % Baso % (Auto) 0.6 (0-2) % Absolute Neuts (auto) 5.1 (1.5-7.7) 10^3/ul Absolute Lymphs (auto) 1.3 (1.0-4.8) 10^3/ul Absolute Monos (auto) 0.5 (0-0.8) 10^3/ul Absolute Eos (auto) 0.1 (0-0.6) 10^3/ul Absolute Basos (auto) 0 (0-0.2) 10^3/ul Absolute Nucleated RBC 0 10^3/ul Nucleated RBC % 0 Assess/Plan/Problems-Billing Assessment: 52 yo F schizoaffective disorder, uncontrolled DM2, fungal infection under right breast - Patient Problems (1) Candidiasis of breast Comment: Apply clotrimazole under RIGHT AND LEFT breasts c/w clotrimazole cream and monitor (2) Diabetes Comment: HbA1c 12% this visit Lantus 44 units with acceptable FSG preprandial in AM Lispro SS Metformin Januvia Discharge on above medications when ready (3) Herpes Comment: healing ulcer on upper lip c/w HSV already healing monitor to resolution Status and Disposition: Will sign off please call with additional questions [phone]
[2017-03-16] MEDS: Atorvastatin* 20 MG TAB PO SCH (20:21)
[2017-03-16] MEDS: CloZAPine TAB* 100 MG TAB PO SCH (20:21)
[2017-03-16] MEDS: Temazepam CAP* 15 MG PO SCH (20:21)
[2017-03-16] MEDS: Insulin GLARGINE(*) 1 UNITS UNIT SUBCUT SCH (20:27)
[2017-03-17] MEDS: Levothyroxine TAB* 88 MCG TAB PO SCH (06:45)
[2017-03-17 07:00] LABS: Lithium 1.03 mmol/L (0.6-1.2)
[2017-03-17 07:11] LABS: T4 6.49 mcg/mL (6.09-12.23)
[2017-03-17 07:17] LABS: TSH (Thyroid Stimulating Horm) 0.79 mcIU/mL (0.34-5.60)
[2017-03-17 07:18] LABS: Free T4 0.76 ng/dL (0.61-1.12)
[2017-03-17] MEDS: Insulin LISPRO* 1 UNITS UNIT SUBCUT SCH ×3 (07:54→16:55)
[2017-03-17] MEDS: Insulin GLARGINE(*) 1 UNITS UNIT SUBCUT SCH (08:35)
[2017-03-17] MEDS: Topiramate TAB(*) 100 MG PO SCH ×2 (08:42→20:19)
[2017-03-17] MEDS: Omeprazole CAP* 20 MG PO SCH (08:42)
[2017-03-17] MEDS: Vitamin THERAPEUTIC TAB PO SCH (08:43)
[2017-03-17] MEDS: Lithium Carbonate TAB* 300 MG PO SCH ×2 (08:43→20:19)
[2017-03-17] MEDS: Docusate CAP* 100 MG PO SCH ×2 (08:43→20:19)
[2017-03-17] MEDS: FLUoxetine CAP* 20 MG PO SCH (08:43)
[2017-03-17] MEDS: metFORMIN* 1,000 MG TAB PO SCH ×2 (08:43→20:19)
[2017-03-17] MEDS: CMCS - SitaGLIPtin (NF) 100 MG TAB PO SCH (08:43)
[2017-03-17] MEDS: Fluticasone NASAL SPRAY 50MCG* 16 gm SPRAY BTL BOTH NARES SCH ×2 (08:44→09:22)
[2017-03-17] MEDS: Mometasone/Formoter 200/5 MDI INH SCH ×2 (09:22→20:18)
[2017-03-17] MEDS: Nystatin TOP POWDER* 15 GM BTL TOPICAL SCH ×3 (09:22→20:30)
[2017-03-17] MEDS: Clotrimazole 1% CREAM* 30 GM TOPICAL SCH ×2 (09:23→20:22)
[2017-03-17] MEDS: CloZAPine TAB* 100 MG TAB PO SCH (20:19)
[2017-03-17] MEDS: Temazepam CAP* 15 MG PO SCH (20:19)
[2017-03-17] MEDS: Atorvastatin* 20 MG TAB PO SCH (20:19)
[2017-03-18] MEDS: Insulin LISPRO* 1 UNITS UNIT SUBCUT SCH ×2 (07:56→12:01)
[2017-03-18 08:17] VITALS: BP 129/48
[2017-03-18] MEDS: Omeprazole CAP* 20 MG PO SCH (08:39)
[2017-03-18] MEDS: FLUoxetine CAP* 20 MG PO SCH (08:40)
[2017-03-18] MEDS: Topiramate TAB(*) 100 MG PO SCH (08:40)
[2017-03-18] MEDS: metFORMIN* 1,000 MG TAB PO SCH (08:40)
[2017-03-18] MEDS: Levothyroxine TAB* 88 MCG TAB PO SCH (08:41)
[2017-03-18] MEDS: Lithium Carbonate TAB* 300 MG PO SCH (08:41)
[2017-03-18] MEDS: Vitamin THERAPEUTIC TAB PO SCH (08:41)
[2017-03-18] MEDS: Docusate CAP* 100 MG PO SCH (08:41)
[2017-03-18] MEDS: Fluticasone NASAL SPRAY 50MCG* 16 gm SPRAY BTL BOTH NARES SCH (08:42)
[2017-03-18] MEDS: Mometasone/Formoter 200/5 MDI INH SCH (08:43)
[2017-03-18] MEDS: Clotrimazole 1% CREAM* 30 GM TOPICAL SCH (08:43)
[2017-03-18] MEDS: Nystatin TOP POWDER* 15 GM BTL TOPICAL SCH (10:54)
[2017-03-18] MEDS: CMCS - SitaGLIPtin (NF) 100 MG TAB PO SCH (11:54)
--- NOTE | 2017-03-18 15:25 | DCNOTE ---
DC Assessment - Assessment Clinical Impression: 52 yo with history of schizoaffective disorder currently depressed. patient admitted with depression and exacerbation of psychotic symptoms (comman hallucinations, intrusive thoughts, and suicidal ideation) as well as inability to care for herself in the community. deterioration in mental status occurred in context of poorly controlled diabetes, decrease in clozapine dosage, and partial medication non adherance. Patient remains gravely disabled and has Suicidal ideation and command hallucinations which make her potential danger to self. She requires on going psychiatric treatment on inpatient hospital unit to closely monitor mental status, adjust psych. medications to target symtoms. She also has metabolic syndrome with severe hyperglycemia which is requiring daily consultation with hospitalist service. Insulin long and short acting was recently introduced and is being adjusted. Elevated QTc futher complicates her stay necessitating discontinuation of Latuda on 03/12/2017. clozaril being titrated up to target psychotic symptoms. Weekend went well for patient. mood brighter , attended and participated in all groups. frequency of auditory hallucinations reported as decreased Patient continues to have occasional command hallcuinations which command her to harm self However, she has had this for most of her life and reports that she has never acted upon it. patient feels that she is close to her baseline mental status and feels that she would like discharge soon. Inpatient DSM-IV Dx: schizoaffective d/o, depressed type. Discharge Planning - Discharge Planning Discharge Planning: Prescriptions provided for discharge [] Yes [] No Follow up care details as per social work arrangements. Patient response to discharge plan: [] eager for discharge [] agreeable with discharge plan [] ambivalent about discharge [] disagrees with discharge today
== END 2017-03-18 14:35 | disposition home or self-care (01) | DRG 885 ==
LOC: ED 10:48 → BSU 03-07 00:39
PROVIDERS: ADMIT Psychiatry & Neurology Psychiatry; ATTEND Psychiatry & Neurology Psychiatry
DX: F25.0 Schizoaffective disorder, bipolar type (principal); B37.89 Other sites of candidiasis; E11.65 Type 2 diabetes mellitus with hyperglycemia; E66.01 Morbid (severe) obesity due to excess calories; R41.83 Borderline intellectual functioning; E78.00 Pure hypercholesterolemia, unspecified; J45.909 Unspecified asthma, uncomplicated; B00.1 Herpesviral vesicular dermatitis; K21.9 Gastro-esophageal reflux disease without esophagitis; I10 Essential (primary) hypertension; Z68.41 Body mass index [BMI] 40.0-44.9, adult; Z91.5 Personal history of self-harm; Z87.440 Personal history of urinary (tract) infections; Z88.8 Allergy status to other drugs, medicaments and biological substances; Z88.0 Allergy status to penicillin; Z88.1 Allergy status to other antibiotic agents; Z98.51 Tubal ligation status; Z82.49 Family history of ischemic heart disease and other diseases of the circulatory system; Z83.3 Family history of diabetes mellitus
CPT/HCPCS: 36415; 80048; 80053; 80159; 80178; 80307; 80320; 80329; 81003; 81015; 82947; 83036; 84436; 84439; 84443; 85025; 93005; 99222; 99231; 99232; 99238; A9270-GY; G0480

== ENCOUNTER 2017-07-24 10:37 | Emergency (ER) | payer MEDICARE, MEDICAID ==
[2017-07-24] MEDS ORDERED: NS 0.9% 1000 ML* 1,000 ML IV ONE (13:02)
[2017-07-24] MEDS ORDERED: Ondansetron INJ* 2 MG/ML VIAL IV ONE (13:02)
[2017-07-24] MEDS ORDERED: Morphine INJ* 10 MG/ML 1 ML CARPUJECT IV ONE (13:02)
[2017-07-24] MEDS ORDERED: Morphine VIAL* 4 MG/ML VIAL (1 ml vial) IV ONE (13:21)
[2017-07-24 14:17] LABS: ABS Basophils 0 10^3/ul (0-0.2); ABS Eosinophils 0.3 10^3/ul (0-0.6); ABS Lymphocytes 1.3 10^3/ul (1.0-4.8); ABS Monocytes 0.4 10^3/ul (0-0.8); ABS Neutrophils 4.3 10^3/ul (1.5-7.7); ABS Nucleated RBC 0 10^3/ul; Eosinophil % 4.2 % (0-6); Hematocrit 38 % (35-47); Hemoglobin 12.6 g/dl (12.0-16.0); Lymphocyte % 20.7 % (25-47); Mean Corpuscular HGB Conc 33 g/dl (31-36); Mean Corpuscular Hemoglobin 29 pg (27-31); Mean Corpuscular Volume 89 fL (80-97); Mean Platelet Volume 7.7 um3 (7.4-10.4); Nucleated Red Blood Cells % 0; Platelet Count 190 10^3/ul (150-450); Red Blood Count 4.33 10^6/ul (4.0-5.4); Red Cell Distribution Width 16 % (10.5-15); White Blood Count 6.3 10^3/ul (3.5-10.8)
[2017-07-24 14:26] LABS: INR 0.91 (0.77-1.02)
[2017-07-24 14:36] LABS: EGFR Non-African American 52.9 (>60)
--- NOTE | 2017-07-24 15:11 | RAD ---
Indication: Left flank pain. CT of the abdomen and pelvis was performed without oral or IV contrast administration. Coronal and sagittal reconstructed images were obtained. Lung bases demonstrate no pleural fluid, nodules or masses. Heart is of normal size and configuration. Bishop are clear. The liver is normal in size. No focal lesions or intrahepatic ductal dilatation is noted. The common duct is not dilated. The gallbladder demonstrates no calcified gallstones. No pericholecystic fluid or wall thickening is noted. The pancreas demonstrates no mass or pancreatic duct dilatation. The spleen is normal in size. No adrenal masses are noted. The kidneys demonstrates no hydronephrosis. No retroperitoneal lymphadenopathy is noted. Dilated loops of bowel are noted. CT of the pelvis demonstrates stool throughout the colon. The uterus and ovaries are unremarkable. The urinary bladder is unremarkable. IMPRESSION: No evidence of obstructive uropathy is noted. No abnormal masses or fluid collections are noted.
[2017-07-24 16:49] LABS: Urine Appearance Cloudy; Urine Blood Negative (Negative); Urine Ketones Negative (Negative); Urine Protein Negative (Negative); Urine Specific Gravity 1.009 (1.010-1.030); Urine Urobilinogen Negative (Negative)
[2017-07-24 16:51] LABS: Urine Color Yellow
[2017-07-24] MEDS ORDERED: Sulfamethox/Trimethoprim DS 800/160* TAB PO ONE (17:03)
--- NOTE | 2017-07-24 17:39 | ED ---
Wilman Mesa Stephanie, scribed for Juan Manuel Orlando on 07/24/17 at 1306 . Back Pain - HPI Summary HPI Summary: The pt is a 52 y/o F presenting to the ED with c/o L sided flank pain that began 07/22/17. Symptoms include lower back pain. The pt states she was vacuuming at onset of pain. She denies dysuria, CP or SOB. - History of Current Complaint Chief Complaint: EDFlankPain Stated Complaint: BACK/PELVIC PAIN Time Seen by Provider: 07/24/17 12:39 Hx Obtained From: Patient Hx Last Menstrual Period: april 29 Onset/Duration: Sudden Onset, Lasting Days - 3, Still Present Onset/Duration: Started Days Ago - 3, Still Present Timing: Constant Back Pain Location: Is Discrete @ - L side of back Severity Currently: Severe Pain Intensity: 10 Pain Scale Used: 0-10 Numeric Aggravating Symptom(s): Movement Alleviating Symptom(s): Nothing Associated Signs And Symptoms: Positive: Flank Pain - L side - Allergies/Home Medications Allergies/Adverse Reactions: Allergies Allergy/AdvReac Type Severity Reaction Status Date / Time amoxicillin Allergy Nausea And Verified 07/24/17 10:57 Vomiting aspirin Allergy Unknown Verified 07/24/17 10:57 Reaction Details Cephalosporins Allergy Rash Verified 07/24/17 10:57 Tetracyclines Allergy Nausea And Verified 07/24/17 10:57 Vomiting Home Medications: Home Medications CloZAPine TAB* 300 mg PO BEDTIME MDD 300 mg 07/24/17 [History Confirmed 07/24/17 ] Cyclobenzaprine TAB* [Flexeril 10 MG TAB*] 10 mg PO TID PRN 07/24/17 [History Confirmed 07/24/17] Warm [place] Carbonate TAB* 900 mg PO QPM 07/24/17 [History Confirmed 07/24/17] Rosuvastatin (NF) [Crestor (NF)] 5 mg PO DAILY 07/24/17 [History Confirmed 07/24] Temazepam CAP* [Restoril CAP*] 15 mg PO BEDTIME 07/24/17 [History Confirmed ] PMH/Surg Hx/FS Hx/Imm Hx Endocrine/Hematology History: Reports: Hx Diabetes, Hx Thyroid Disease Denies: Hx Anticoagulant Therapy Cardiovascular History: Reports: Hx Hypercholesterolemia Denies: Hx Congestive Heart Failure, Hx Deep Vein Thrombosis, Hx Hypertension , Hx Myocardial Infarction, Hx Pacemaker/ICD Respiratory History: Reports: Hx Asthma Denies: Hx Chronic Obstructive Pulmonary Disease (COPD), Hx Lung Cancer, Hx Pneumonia, Hx Pulmonary Embolism GI History: Reports: Hx Ulcer History: Denies: Hx Dialysis, Hx Renal Disease Sensory History: Denies: Hx Contacts or Glasses, Hx Hearing Aid Opthamlomology History: Denies: Hx Contacts or Glasses Neurological History: Denies: Hx Dementia, Hx Migraine, Hx Seizures, Hx Transient Ischemic Attacks (TIA) Psychiatric History: Reports: Hx Inpatient Treatment, Hx Community Mental Health Tx, Hx Schizophrenia Denies: Hx Anxiety, Hx Eating Disorder, Hx Depression, Hx Bipolar Disorder, Hx of Violent Episodes Against Others - Cancer History Hx Chemotherapy: No Hx Radiation Therapy: No - Surgical History Surgery Procedure, Year, and Place: tubal ligation Infectious Disease History: No Infectious Disease History: Denies: Traveled Outside the [place] in Last 30 Days - Family History Known Family History: Positive: Cardiac Disease, Hypertension, Diabetes - Social History Occupation: Disabled Lives: Alone Alcohol Use: None Hx Substance Use: No Substance Use Type: Reports: None Hx Tobacco Use: No Smoking Status (MU): Never Smoked Tobacco Amount Used/How Often: states that she smoked one cigarette when she was 16 yrs. old Have You Smoked in the Last Year: No Review of Systems Negative: Fever Negative: Chest Pain Negative: Shortness Of Breath Positive: flank pain - L side. Negative: dysuria Positive: Other - L lower back pain All Other Systems Reviewed And Are Negative: Yes Physical Exam - Summary Physical Exam Summary: Appearance: Well appearing, mild pain distress Skin: warm, dry, reflects adequate perfusion Head/face: normal Eyes: EOMI, DEV ENT: normal Neck: supple, non-tender Respiratory: CTA, breath sounds present Cardiovascular: RRR, pulses symmetrical Abdomen: non-tender, soft Bowel: present Musculoskeletal: strength/ROM intact, tenderness in L flank Neuro: normal, sensory motor intact, A&Ox3 Triage Information Reviewed: Yes Vital Signs On Initial Exam: Initial Vitals Temp Pulse Resp BP Pulse Ox 97.6 F 77 18 131/79 99 07/24/17 10:58 07/24/17 10:58 07/24/17 10:58 07/24/17 10:58 07/24/17 10:58 Vital Signs Reviewed: Yes Diagnostics - Vital Signs Vital Signs Temp Pulse Resp BP Pulse Ox 07/24/17 12:40 72 131/80 97 07/24/17 12:38 70 99 07/24/17 10:58 97.6 F 77 18 131/79 99 - Laboratory Lab Results: Lab Results 07/24/17 07/24/17 07/24/17 Range/Units 14:05 14:05 14:05 WBC 6.3 (3.5-10.8) 10^3/ul RBC 4.33 (4.0-5.4) 10^6/ul Hgb 12.6 (12.0-16.0) g/dl Hct 38 (35-47) % MCV 89 (80-97) fL MCH 29 (27-31) pg MCHC 33 (31-36) g/dl RDW 16 H (10.5-15) % Plt Count 190 (150-450) 10^3/ul MPV 7.7 (7.4-10.4) um3 Neut % (Auto) 68.2 (38-83) % Lymph % (Auto) 20.7 L (25-47) % [place] % (Auto) 6.3 (0-7) % Eos % (Auto) 4.2 (0-6) % Baso % (Auto) 0.6 (0-2) % Absolute Neuts (auto) 4.3 (1.5-7.7) 10^3/ul Absolute Lymphs (auto) 1.3 (1.0-4.8) 10^3/ul Absolute Monos (auto) 0.4 (0-0.8) 10^3/ul Absolute Eos (auto) 0.3 (0-0.6) 10^3/ul Absolute Basos (auto) 0 (0-0.2) 10^3/ul Absolute Nucleated RBC 0 10^3/ul Nucleated RBC % 0 INR (Anticoag Therapy) 0.91 (0.77-1.02) APTT 32.3 (26.0-36.3) seconds Sodium 141 (139-145) mmol/L Potassium 4.5 (3.5-5.0) mmol/L Chloride 113 H (101-111) mmol/L Carbon Dioxide 22 (22-32) mmol/L Anion Gap 6 (2-11) mmol/L BUN 17 (6-24) mg/dL Creatinine 1.08 H (0.51-0.95) mg/dL Est GFR ( Amer) 68.0 (>60) Est GFR (Non-Af Amer) 52.9 (>60) BUN/Creatinine Ratio 15.7 (8-20) Glucose 103 H (70-100) mg/dL Lactic Acid (0.5-2.0) mmol/L Calcium 9.5 (8.6-10.3) mg/dL Total Bilirubin 0.30 (0.2-1.0) mg/dL AST 19 (13-39) U/L ALT 25 (7-52) U/L Alkaline Phosphatase 109 H (34-104) U/L Total Protein 6.8 (6.4-8.9) g/dL Albumin 4.2 (3.2-5.2) g/dL Globulin 2.6 (2-4) g/dL Albumin/Globulin Ratio 1.6 (1-3) Lipase 29 (11.0-82.0) U/L Beta HCG, Quant < 0.60 mIU/mL Urine Color Urine Appearance Urine pH (5-9) Ur Specific [place] (1.010-1.030) Urine Protein (Negative) Urine Ketones (Negative) Urine Blood (Negative) Urine Nitrate (Negative) Urine Bilirubin (Negative) Urine Urobilinogen (Negative) Ur Leukocyte Esterase (Negative) Urine WBC (Auto) (Absent) Urine RBC (Auto) (Absent) Ur Squamous Epith Cells (Absent) Urine Bacteria (Absent) Urine Glucose (Negative) Urine Ascorbic Acid (Negative) 07/24/17 07/24/17 Range/Units 14:05 16:27 WBC (3.5-10.8) 10^3/ul RBC (4.0-5.4) 10^6/ul Hgb (12.0-16.0) g/dl Hct (35-47) % MCV (80-97) fL MCH (27-31) pg MCHC (31-36) g/dl RDW (10.5-15) % Plt Count (150-450) 10^3/ul MPV (7.4-10.4) um3 Neut % (Auto) (38-83) % Lymph % (Auto) (25-47) % [place] % (Auto) (0-7) % Eos % (Auto) (0-6) % Baso % (Auto) (0-2) % Absolute Neuts (auto) (1.5-7.7) 10^3/ul Absolute Lymphs (auto) (1.0-4.8) 10^3/ul Absolute Monos (auto) (0-0.8) 10^3/ul Absolute Eos (auto) (0-0.6) 10^3/ul Absolute Basos (auto) (0-0.2) 10^3/ul Absolute Nucleated RBC 10^3/ul Nucleated RBC % INR (Anticoag Therapy) (0.77-1.02) APTT (26.0-36.3) seconds Sodium (139-145) mmol/L Potassium (3.5-5.0) mmol/L Chloride (101-111) mmol/L Carbon Dioxide (22-32) mmol/L Anion Gap (2-11) mmol/L BUN (6-24) mg/dL Creatinine (0.51-0.95) mg/dL Est GFR ( Amer) (>60) Est GFR (Non-Af Amer) (>60) BUN/Creatinine Ratio (8-20) Glucose (70-100) mg/dL Lactic Acid 1.1 (0.5-2.0) mmol/L Calcium (8.6-10.3) mg/dL Total Bilirubin (0.2-1.0) mg/dL AST (13-39) U/L ALT (7-52) U/L Alkaline Phosphatase (34-104) U/L Total Protein (6.4-8.9) g/dL Albumin (3.2-5.2) g/dL Globulin (2-4) g/dL Albumin/Globulin Ratio (1-3) Lipase (11.0-82.0) U/L Beta HCG, Quant mIU/mL Urine Color Yellow Urine Appearance Cloudy Urine pH 7.0 (5-9) Ur Specific [place] 1.009 L (1.010-1.030) Urine Protein Negative (Negative) Urine Ketones Negative (Negative) Urine Blood Negative (Negative) Urine Nitrate Positive A (Negative) Urine Bilirubin Negative (Negative) Urine Urobilinogen Negative (Negative) Ur Leukocyte Esterase Trace A (Negative) Urine WBC (Auto) 2+(11-20/hpf) A (Absent) Urine RBC (Auto) Absent (Absent) Ur Squamous Epith Cells Present A (Absent) Urine Bacteria 1+ A (Absent) Urine Glucose Negative (Negative) Urine Ascorbic Acid * A (Negative) Result Diagrams: 07/24/17 14:05 07/24/17 14:05 Lab Statement: Any lab studies that have been ordered have been reviewed, and results considered in the medical decision making process. - CT Abdomen/Pelvis CT Interpretation: No Acute Changes CT Interpretation Completed By: Radiologist - No evidence of obstructive uropathy is noted. No abnormal masses or fluid collections are noted. ED physician has reviewed this report. Re-Evaluation - Re-Evaluation First Eval Re-Evaluation Time: 17:06 Comment: I reviewed the lab and CT results with the pt. Pt will be discharged home. Back Pain Course/Dx - Course Course Of Treatment: The pt is a 52 y/o F presenting to the ED with c/o L sided flank pain that began 07/22/17. Symptoms include lower back pain. She denies dysuria, CP or SOB. Blood work, urinalysis, and CT abdomen/pelvis were obtained. Abdomen/pelvis CT is negative. Urinalysis is positive for UTI. Pt will be discharged home with a prescription for Bactrim. She is instructed to return to the ED for any worsening symptoms. - Diagnoses Differential Diagnosis/HQI/PQRI: Positive: Herniated Disc, Renal Colic, Sprain Provider Diagnoses: Urinary tract infection, Flank pain Discharge - Sign-Out/Discharge Documenting (check all that apply): Discharge/Admit/Transfer - Discharge - Discharge Plan Condition: Stable Disposition: HOME Prescriptions: Sulfamethox/Trimethoprim DS* [Bactrim DS 800/160 TAB*] 1 tab PO BID #10 tab Patient Education Materials: Urinary Tract Infection in Women (ED), Flank Pain (ED) Referrals: Jason Bianchi MD [Primary Care Provider] - 3 Days Additional Instructions: Please follow up with your primary care provider in 3 days. RETURN TO THE ED FOR ANY WORSENING SYMPTOMS. - Billing Disposition and Condition Condition: STABLE Disposition: HOME The documentation as recorded by the Wilman boss Stephanie accurately reflects the service I personally performed and the decisions made by , Juan Manuel Orlando.
[2017-07-24 18:12] VITALS: BP 123/68
--- NOTE | 2017-07-27 16:11 | PN ---
Progress Note - Progress Note Date of Service: 07/24/17 Note: Pt. seen in ER 07/24/17 and dx with a UTI. She was started on Bactrim. Urine culture today is growing >100,000 e. coli resistant to bactrim. Pt. has numerous allergies. Based on sensitivity and allergies will switch to macrobid. I spoke with pt. today around 1600 and discussed plan. Advised to dc bactrim and start macrobid today. Rx sent to pharm. Pt. understands and agrees with plan.
== END 2017-07-24 18:12 | disposition home or self-care (01) ==
LOC: ED 10:37
DX: N39.0 Urinary tract infection, site not specified (principal); R10.9 Unspecified abdominal pain
CPT/HCPCS: 36415; 74176; 80053; 81003; 81015; 83605; 83690; 84702; 85025; 85610; 85730; 87077; 87086; 87186; 96360; 96374; 96375; 96376; 99282; A9270-GY; J2270; J2405

== ENCOUNTER 2017-08-18 03:05 | Inpatient (IN) | payer MEDICARE, MEDICAID ==
[2017-08-18] MEDS ORDERED: Dextrose 50% Syringe 50 ML* 25 GM/50 ML SYRINGE IV PUSH ONE (03:38)
[2017-08-18] MEDS ORDERED: Dextrose 50% Syringe 50 ML* 25 GM/50 ML SYRINGE ONE (03:39)
[2017-08-18 03:57] LABS: ABS Basophils 0 10^3/ul (0-0.2); ABS Eosinophils 0.1 10^3/ul (0-0.6); ABS Lymphocytes 1.4 10^3/ul (1.0-4.8); ABS Monocytes 0.4 10^3/ul (0-0.8); ABS Neutrophils 2.8 10^3/ul (1.5-7.7); ABS Nucleated RBC 0 10^3/ul; Eosinophil % 2.5 % (0-6); Hematocrit 40 % (35-47); Hemoglobin 13.4 g/dl (12.0-16.0); Lymphocyte % 29.6 % (25-47); Mean Corpuscular HGB Conc 33 g/dl (31-36); Mean Corpuscular Hemoglobin 30 pg (27-31); Mean Corpuscular Volume 90 fL (80-97); Mean Platelet Volume 7.9 um3 (7.4-10.4); Nucleated Red Blood Cells % 0.1; Platelet Count 152 10^3/ul (150-450); Red Blood Count 4.48 10^6/ul (4.0-5.4); Red Cell Distribution Width 15 % (10.5-15); White Blood Count 4.7 10^3/ul (3.5-10.8)
[2017-08-18 03:58] LABS: Urine Appearance Clear; Urine Blood Negative (Negative); Urine Color Yellow; Urine Ketones Negative (Negative); Urine Protein Negative (Negative); Urine Specific Gravity 1.009 (1.010-1.030); Urine Urobilinogen Negative (Negative)
[2017-08-18 04:28] LABS: EGFR Non-African American 63.6 (>60)
[2017-08-18] MEDS ORDERED: Al Hydrox/Mg Hydrox/Simet LIQ* 30 ML UDC PO PRN (05:34)
[2017-08-18] MEDS ORDERED: Ondansetron 40 MG VIAL* 2 MG/ML 20 ML VIAL IV PRN (05:34)
[2017-08-18] MEDS ORDERED: Senna TAB PO PRN (05:34)
[2017-08-18] MEDS ORDERED: Acetaminophen TAB* 325 MG PO PRN (05:34)
[2017-08-18] MEDS ORDERED: Docusate CAP* 100 MG PO PRN (05:34)
--- NOTE | 2017-08-18 06:01 | ED ---
Hank Mesa Jennifer, scribed for Maikel Eckert MD on 08/18/17 at 0315 . Altered Mental Status - HPI Summary HPI Summary: The patient is a 52 year old female brought in by ambulance for AMS. The patient attempts to answer questions in the ED but is really drowsy. LEVEL 5 CAVEAT: HPI LIMITED DUE TO AMS. - History Of Current Complaint Stated Complaint: LETHARGIC Time Seen by Provider: 08/18/17 03:07 Hx From Patient Unobtainable Due To: Altered Mental Status Hx Last Menstrual Period: april 29 Onset/Duration: Unknown Character: Lethargy Aggravating Factor(s): Unknown Alleviating Factor(s): Unknown - Allergies/Home Medications Allergies/Adverse Reactions: Allergies Allergy/AdvReac Type Severity Reaction Status Date / Time amoxicillin Allergy Nausea And Verified 07/24/17 10:57 Vomiting aspirin Allergy Unknown Verified 07/24/17 10:57 Reaction Details Cephalosporins Allergy Rash Verified 07/24/17 10:57 Tetracyclines Allergy Nausea And Verified 07/24/17 10:57 Vomiting PMH/Surg Hx/FS Hx/Imm Hx Endocrine/Hematology History: Reports: Hx Diabetes, Hx Thyroid Disease Denies: Hx Anticoagulant Therapy Cardiovascular History: Reports: Hx Hypercholesterolemia Denies: Hx Congestive Heart Failure, Hx Deep Vein Thrombosis, Hx Hypertension , Hx Myocardial Infarction, Hx Pacemaker/ICD Respiratory History: Reports: Hx Asthma Denies: Hx Chronic Obstructive Pulmonary Disease (COPD), Hx Lung Cancer, Hx Pneumonia, Hx Pulmonary Embolism GI History: Reports: Hx Ulcer History: Denies: Hx Dialysis, Hx Renal Disease Sensory History: Denies: Hx Contacts or Glasses, Hx Hearing Aid Opthamlomology History: Denies: Hx Contacts or Glasses Neurological History: Denies: Hx Dementia, Hx Migraine, Hx Seizures, Hx Transient Ischemic Attacks (TIA) Psychiatric History: Reports: Hx Inpatient Treatment, Hx Community Mental Health Tx, Hx Schizophrenia Denies: Hx Anxiety, Hx Eating Disorder, Hx Depression, Hx Bipolar Disorder, Hx of Violent Episodes Against Others - Cancer History Hx Chemotherapy: No Hx Radiation Therapy: No - Surgical History Surgery Procedure, Year, and Place: tubal ligation Infectious Disease History: No Infectious Disease History: Denies: Traveled Outside the [place] in Last 30 Days - Family History Known Family History: Positive: Cardiac Disease, Hypertension, Diabetes - Social History Alcohol Use: None Hx Substance Use: No Substance Use Type: Reports: None Hx Tobacco Use: No Smoking Status (MU): Never Smoked Tobacco Amount Used/How Often: states that she smoked one cigarette when she was 16 yrs. old Have You Smoked in the Last Year: No Review of Systems Positive: Other - Drowsy Positive: Other - AMS All Other Systems Reviewed And Are Negative: No - Comments Additional Review of Systems Comments: LEVEL 5 CAVEAT: ROS LIMITED DUE TO AMS. Physical Exam - Summary Physical Exam Summary: Appearance: Well appearing, no pain distress Skin: warm, dry, reflects adequate perfusion Head/face: normal Eyes: EOMI, DEV ENT: normal Neck: supple, non-tender Respiratory: CTA, breath sounds present Cardiovascular: RRR, pulses symmetrical Abdomen: non-tender, obese but soft Bowel Sounds: present Musculoskeletal: normal, strength/ROM intact, no edema, moves all extremities Neuro: Attempted to answer but really drowsy. Slurred speech. Extremely drowsy. GCS 15. sensory motor intact, A&Ox3 LEVEL 5 CAVEAT: PE LIMITED DUE TO AMS. Triage Information Reviewed: Yes Vital Signs On Initial Exam: Initial Vitals Temp Pulse Resp BP Pulse Ox 97.2 F 84 18 132/91 98 08/18/17 03:08 08/18/17 03:08 08/18/17 03:08 08/18/17 03:08 08/18/17 03:08 Vital Signs Reviewed: Yes Completion Of Physical Exam Limited Due To: Altered Mental Status Diagnostics - Vital Signs Vital Signs Temp Pulse Resp BP Pulse Ox 08/18/17 03:08 97.2 F 84 18 132/91 98 - Laboratory Lab Results: Lab Results 08/18/17 08/18/17 08/18/17 Range/Units 03:26 03:36 03:37 WBC 4.7 (3.5-10.8) 10^3/ul RBC 4.48 (4.0-5.4) 10^6/ul Hgb 13.4 (12.0-16.0) g/dl Hct 40 (35-47) % MCV 90 (80-97) fL MCH 30 (27-31) pg MCHC 33 (31-36) g/dl RDW 15 (10.5-15) % Plt Count 152 (150-450) 10^3/ul MPV 7.9 (7.4-10.4) um3 Neut % (Auto) 59.5 (38-83) % Lymph % (Auto) 29.6 (25-47) % [place] % (Auto) 7.8 H (0-7) % Eos % (Auto) 2.5 (0-6) % Baso % (Auto) 0.6 (0-2) % Absolute Neuts (auto) 2.8 (1.5-7.7) 10^3/ul Absolute Lymphs (auto) 1.4 (1.0-4.8) 10^3/ul Absolute Monos (auto) 0.4 (0-0.8) 10^3/ul Absolute Eos (auto) 0.1 (0-0.6) 10^3/ul Absolute Basos (auto) 0 (0-0.2) 10^3/ul Absolute Nucleated RBC 0 10^3/ul Nucleated RBC % 0.1 Sodium (139-145) mmol/L Potassium (3.5-5.0) mmol/L Chloride (101-111) mmol/L Carbon Dioxide (22-32) mmol/L Anion Gap (2-11) mmol/L BUN (6-24) mg/dL Creatinine (0.51-0.95) mg/dL Est GFR ( Amer) (>60) Est GFR (Non-Af Amer) (>60) BUN/Creatinine Ratio (8-20) Glucose (70-100) mg/dL POC Glucose (mg/dL) 58 L (70-100) mg/dL Lactic Acid (0.5-2.0) mmol/L Calcium (8.6-10.3) mg/dL Magnesium (1.9-2.7) mg/dL Total Bilirubin (0.2-1.0) mg/dL AST (13-39) U/L ALT (7-52) U/L Alkaline Phosphatase (34-104) U/L Total Protein (6.4-8.9) g/dL Albumin (3.2-5.2) g/dL Globulin (2-4) g/dL Albumin/Globulin Ratio (1-3) TSH (0.34-5.60) mcIU/mL Urine Color Yellow Urine Appearance Clear Urine pH 7.0 (5-9) Ur Specific [place] 1.009 L (1.010-1.030) Urine Protein Negative (Negative) Urine Ketones Negative (Negative) Urine Blood Negative (Negative) Urine Nitrate Negative (Negative) Urine Bilirubin Negative (Negative) Urine Urobilinogen Negative (Negative) Ur Leukocyte Esterase Trace A (Negative) Urine WBC (Auto) Trace(0-5/hpf) (Absent) Urine RBC (Auto) Absent (Absent) Ur Squamous Epith Cells Present A (Absent) Urine Bacteria Absent (Absent) Urine Glucose Negative (Negative) Urine Ascorbic Acid * A (Negative) Salicylates (<30) mg/dL Urine Opiates Screen (None Detect) Acetaminophen mcg/mL Ur Barbiturates Screen (None Detect) Ur Phencyclidine Scrn (None Detect) Ur Amphetamines Screen (None Detect) U Benzodiazepines Scrn (None Detect) [place] (0.6-1.2) mmol/L Urine Cocaine Screen (None Detect) U Cannabinoids Screen (None Detect) Serum Alcohol (<10) mg/dL 08/18/17 08/18/17 08/18/17 Range/Units 03:37 03:37 03:37 WBC (3.5-10.8) 10^3/ul RBC (4.0-5.4) 10^6/ul Hgb (12.0-16.0) g/dl Hct (35-47) % MCV (80-97) fL MCH (27-31) pg MCHC (31-36) g/dl RDW (10.5-15) % Plt Count (150-450) 10^3/ul MPV (7.4-10.4) um3 Neut % (Auto) (38-83) % Lymph % (Auto) (25-47) % [place] % (Auto) (0-7) % Eos % (Auto) (0-6) % Baso % (Auto) (0-2) % Absolute Neuts (auto) (1.5-7.7) 10^3/ul Absolute Lymphs (auto) (1.0-4.8) 10^3/ul Absolute Monos (auto) (0-0.8) 10^3/ul Absolute Eos (auto) (0-0.6) 10^3/ul Absolute Basos (auto) (0-0.2) 10^3/ul Absolute Nucleated RBC 10^3/ul Nucleated RBC % Sodium 142 (139-145) mmol/L Potassium 3.3 L (3.5-5.0) mmol/L Chloride 109 (101-111) mmol/L Carbon Dioxide 25 (22-32) mmol/L Anion Gap 8 (2-11) mmol/L BUN 13 (6-24) mg/dL Creatinine 0.92 (0.51-0.95) mg/dL Est GFR ( Amer) 81.8 (>60) Est GFR (Non-Af Amer) 63.6 (>60) BUN/Creatinine Ratio 14.1 (8-20) Glucose 102 H (70-100) mg/dL POC Glucose (mg/dL) (70-100) mg/dL Lactic Acid 1.2 (0.5-2.0) mmol/L Calcium 9.5 (8.6-10.3) mg/dL Magnesium 2.3 (1.9-2.7) mg/dL Total Bilirubin 0.30 (0.2-1.0) mg/dL AST 17 (13-39) U/L ALT 22 (7-52) U/L Alkaline Phosphatase 83 (34-104) U/L Total Protein 6.6 (6.4-8.9) g/dL Albumin 4.1 (3.2-5.2) g/dL Globulin 2.5 (2-4) g/dL Albumin/Globulin Ratio 1.6 (1-3) TSH 6.44 H (0.34-5.60) mcIU/mL Urine Color Urine Appearance Urine pH (5-9) Ur Specific [place] (1.010-1.030) Urine Protein (Negative) Urine Ketones (Negative) Urine Blood (Negative) Urine Nitrate (Negative) Urine Bilirubin (Negative) Urine Urobilinogen (Negative) Ur Leukocyte Esterase (Negative) Urine WBC (Auto) (Absent) Urine RBC (Auto) (Absent) Ur Squamous Epith Cells (Absent) Urine Bacteria (Absent) Urine Glucose (Negative) Urine Ascorbic Acid (Negative) Salicylates < 2.50 (<30) mg/dL Urine Opiates Screen None detected (None Detect) Acetaminophen < 15 mcg/mL Ur Barbiturates Screen None detected (None Detect) Ur Phencyclidine Scrn None detected (None Detect) Ur Amphetamines Screen None detected (None Detect) U Benzodiazepines Scrn None detected (None Detect) [place] 0.70 (0.6-1.2) mmol/L Urine Cocaine Screen None detected (None Detect) U Cannabinoids Screen None detected (None Detect) Serum Alcohol < 10 (<10) mg/dL Result Diagrams: 08/18/17 03:37 08/18/17 03:37 Lab Statement: Any lab studies that have been ordered have been reviewed, and results considered in the medical decision making process. - EKG 0316 Cardiac Rate: NL EKG Rhythm: Sinus Rhythm - [address] Segment: Non-Specific EKG Interpretation: Normal axis, intraventricular conduction delay, QTC 518 Re-Evaluation - Re-Evaluation First Eval Re-Evaluation Time: 04:54 Change: Improved Comment: The patient is still drowsy but has improved after some hydration. She was able to tell me that she takes L[place]. Altered Mental Statu Course/Dx - Course Course Of Treatment: Patient presents very drowsy with almost unintelligible speech. It was found that her blood sugar was 58 on Accu-Chek and so one amp of D50 was given. She had some recovery but not completely. She relates that she has been sleeping poorly lately but did not intentionally take an overdose. She clearly has some cognitive delays and a speech impediment. Most likely is that she made inadvertent errors with her medications. Her QTC is prolonged likely as a result of her psychiatric medications. She continues to be quite drowsy though arousable. Given that she may have made errors and her diabetic regimen she will be observed through the day. Hospitalist came, evaluated and will admit. - Diagnoses Differential Diagnosis/HQI/PQRI: Hypoglycemia, Hypothermia, Injury, Intoxication , Intracranial Bleed, Metabolic Disorder, Overdose Provider Diagnoses: Hypoglycemia, Delirium, Polypharmacy - Provider Notifications Discussed Care Of Patient With: Fransisca Acuna Time Discussed With Above Provider: 04:57 Instructed by Provider To: Will See In ED Discharge - Sign-Out/Discharge Documenting (check all that apply): Discharge/Admit/Transfer - Discharge Plan Condition: Fair Disposition: ADMITTED TO [facility] Referrals: Jason Bianchi MD [Primary Care Provider] - - Billing Disposition and Condition Condition: FAIR Disposition: [facility] [place] The documentation as recorded by the Hank boss Jennifer accurately reflects the service I personally performed and the decisions made by , Maikel Eckert MD.
[2017-08-18] MEDS: NS 0.9% 1000 ML* 1,000 ML IV SCH ×2 (06:35→13:48)
[2017-08-18] MEDS: Heparin VIAL(*) 5000 UNITS/ML VIAL (FIVE THOUSAND) SUBCUT SCH ×3 (06:35→21:27)
--- NOTE | 2017-08-18 08:54 | RAD ---
HISTORY: Delirium COMPARISONS: None relevant TECHNIQUE: Multiple contiguous axial CT scans were obtained of the head without intravenous contrast. FINDINGS: HEMORRHAGE/INFARCT: There is no hemorrhage or acute infarct. MASSES/SHIFT: There is no mass or shift. EXTRA-AXIAL SPACES: There are no extra-axial fluid collections. SULCI AND VENTRICLES: The sulci and ventricles are normal in size and position for the patient's stated age. CEREBRUM: There are no focal parenchymal abnormalities. BRAINSTEM: There are no focal parenchymal abnormalities. CEREBELLUM: There are no focal parenchymal abnormalities. VESSELS: The vessels are grossly normal. PARANASAL SINUSES: The paranasal sinuses are clear. ORBITS: The orbits are unremarkable. BONES AND SOFT TISSUE: No bone or soft tissue abnormalities are noted. OTHER: None IMPRESSION: NO ACUTE INTRACRANIAL PATHOLOGY.
--- NOTE | 2017-08-18 09:41 | HP ---
CC: Jason Bianchi MD HISTORY AND PHYSICAL: DATE OF ADMISSION: 08/18/17 TIME OF EVALUATION: 0500 PRIMARY CARE PHYSICIAN: Jason Bianchi MD CHIEF COMPLAINT: Altered mental status. HISTORY OF PRESENT ILLNESS: This is a 52-year-old female with past medical history of schizoaffective disorder, diabetes, multiple psych admissions in the past with intellectual developmental disability who presents to the emergency room via EMS for altered mental status. Per report, the family had called EMS. They were concerned that the patient was very lethargic. On arrival to the emergency room, the patient was found to be hypoglycemic. She was given a half amp of D50, but still remained lethargic but did perk up some. She denied any suicide attempts and denied any ingestion or polypharmacy. Her additional blood workup was unremarkable. The patient continued to remain lethargic. There was concern for possible ingestion and recommended observation. The patient on my encounter does fall asleep and limited interaction. She denies taking any medications. Denies any new changes in her medications. She states she was having a hard time sleeping and she does have sleeping pills, but denied taking them. She has had some abdominal discomfort. She had diarrhea yesterday. She has had some nausea today. She denies any changes in her medications. No chest pain. No cough. No shortness of breath. No urinary symptoms. She states her appetite has been adequate. Otherwise, remaining review of systems is negative. In the emergency room, as mentioned the patient had labs, given an amp of D50 and was referred to the hospitalist service for further evaluation. PAST MEDICAL HISTORY: 1. Diabetes. 2. Morbid obesity. 3. Schizoaffective disorder. 4. History of pancreatitis. 5. History of intellectual developmental disability. 6. History of multiple psych admissions with suicide attempt. 7. History of hypoglycemia. 8. History of asthma. MEDICATIONS: The patient is not clear on all of the medications that she takes. We will need to obtain med rec. ALLERGIES: 1. AMOXICILLIN. 2. ASPIRIN. 3. CEPHALOSPORINS. 4. TETRACYCLINE. FAMILY HISTORY: Reviewed and noncontributory. SOCIAL HISTORY: The patient states she lives in an apartment with a roommate. She denies any alcohol, tobacco, or illicit drug use. She states she does not have a healthcare proxy. She has a child that is 32, Christopher. Code status is full code. REVIEW OF SYSTEMS: A 14-point review of systems as mentioned in the HPI, otherwise negative. PHYSICAL EXAMINATION GENERAL: In no acute distress, falls asleep, but awakes to verbal stimuli, wakes easily. VITAL SIGNS: Temp 97.2, pulse rate 83, respiratory rate 16, oxygen saturation 99% on 2 L, and blood pressure 127/82. HEENT: Head is normocephalic. Pupils are pinpoint and reactive. Conjunctivae anicteric. Oropharynx: Mucous membranes are moist. NECK: Supple. No lymphadenopathy. RESPIRATORY: Diminished breath sounds. No wheezes, rhonchi, or rales. CARDIAC: Regular rate and rhythm. Soft systolic murmur heard throughout. ABDOMEN: Soft, nontender, and nondistended. Morbidly obese. EXTREMITIES: No clubbing, cyanosis, or edema. 1+ DPs. NEUROLOGIC: No gross focal neurologic deficits. Alert and oriented x3. DIAGNOSTIC STUDIES/LAB DATA: White count 4.7, hemoglobin 13.4, hematocrit 40, and platelets 152. Sodium 142, potassium 3.3, chloride 109, bicarb 25, BUN 13, creatinine 0.92. Glucose initially on arrival was 58, but a minute later run by the lab was 102. Urinalysis is unremarkable. Toxicology is unremarkable. [place] level was 0.7. EKG shows normal sinus rhythm with a QTc of 518. Head CT wet read unremarkable. ASSESSMENT: This is a 52-year-old female with a past medical history of diabetes, schizoaffective disorder, and multiple psych admissions in the past, presents to the emergency room via EMS for altered mental status. 1. Altered mental status. Assessment: The patient awakes easily, but does appear somnolent. There is a question of hypoglycemia on her initial blood workup. No toxic ingestion per the patient. Her initial workup is unremarkable with unclear etiology. Plan: We will continue IV fluids, place her on telemetry. Monitor her for observation. We will obtain a med rec to further explore any concerns for polypharmacy. Check a thyroid level. Check a hemoglobin A1c if this truly was hypoglycemia, may be related to her somnolence. We will check her blood sugars q. 2 hours initially. Once this appears stabilized, we will spread it out further, also place the Social Work consult to make sure she has services and resources in place if this is not related to her mental health. 2. Chronic medical problems. As mentioned, we need her med rec to resume her medications as prescribed and as indicated. 3. DVT prophylaxis: The patient's score is moderate risk. Place her on heparin subcu t.i.d. 4. Code status: Full code. PATIENT TIME: Greater than 30 minutes spent doing the history and physical, more than half the time spent with patient contact. [id number]/CPS #: [id number] DAVION
[2017-08-18] MEDS ORDERED: Albuterol HFA INHALER* 8 gm MDI INH PRN (15:43)
--- NOTE | 2017-08-18 15:54 | PN ---
Subjective Date of Service: 08/18/17 Interval History: Awake now. Reports GI illness for last 2 days with diarrhea. Went to bed last night before eating dinner. Temazepam is new in last several weeks Today eating less but diarrhea better Objective Active Medications: Acetaminophen (Tylenol Tab*) 650 mg PO Q4H PRN PRN Reason: FEVER/PAIN Al Hydrox/Mg Hydrox/Simethicone (Maalox Plus*) 30 ml PO Q6H PRN PRN Reason: INDIGESTION Albuterol (Ventolin Hfa Inhaler*) 1 puff INH Q6H PRN PRN Reason: SHORTNESS OF BREATH Budesonide/Formoterol Fumarate (Symbicort 160/4.5 (Nf)) 2 puff INH BID MAG PRN Reason: Protocol Clozapine (Clozapine Tab*) 300 mg PO BEDTIME MAG Docusate Sodium (Colace Cap*) 100 mg PO BID PRN PRN Reason: CONSTIPATION Fluoxetine HCl (Prozac Cap*) 40 mg PO QAM [facility] Fluticasone Propionate (Flonase Nasal [place] 50mcg*) 2 spray BOTH NARES DAILY [facility] Heparin Sodium (Porcine) (Heparin Vial(*)) 5,000 units SUBCUT Q8HR [facility] Last Admin: 08/18/17 13:48 Dose: 5,000 units Levothyroxine Sodium (Synthroid Tab*) 88 mcg PO DAILY@0600 [facility] [place] Carbonate ([place] Carbonate Tab*) 900 mg PO QPM [facility] Metformin HCl (Glucophage*) 1,000 mg PO BID [facility] Multivitamins (Theragran Tab*) 1 tab PO DAILY [facility] Ondansetron HCl (Zofran 40 Mg Vial*) 4 mg IV Q4H PRN PRN Reason: NAUSEA/VOMITING Pantoprazole Sodium (Protonix Tab (Nf)) 40 mg PO DAILY MAG Topiramate (Topamax(*)) 100 mg PO BID [facility] Vital Signs - 8 hr 08/18/17 08/18/17 07:55 12:38 Temperature 97.5 F 97.5 F Pulse Rate 86 78 Respiratory 16 16 Rate Blood Pressure 132/73 117/71 (mmHg) O2 Sat by Pulse 100 99 Oximetry Oxygen Devices in Use Now: None Appearance: lying flat, NAD Eyes: No Scleral Icterus, PERRLA Ears/Nose/Mouth/Throat: NL Teeth, Lips, Gums, Clear Oropharnyx Neck: NL Appearance and Movements; NL JVP, Trachea Midline Respiratory: Symmetrical Chest Expansion and Respiratory Effort, Clear to Auscultation Cardiovascular: RRR Abdominal: No Hepatosplenomegaly, - - tenderness in suprapubic, ND Lymphatic: No Cervical Adenopathy Extremities: No Edema Skin: No Rash or Ulcers Neurological: Alert and Oriented x 3 Result Diagrams: 08/18/17 03:37 08/18/17 03:37 Additional Lab and Data: Lab Results 08/18/17 08/18/17 08/18/17 Range/Units 03:26 03:36 03:37 WBC 4.7 (3.5-10.8) 10^3/ul RBC 4.48 (4.0-5.4) 10^6/ul Hgb 13.4 (12.0-16.0) g/dl Hct 40 (35-47) % MCV 90 (80-97) fL MCH 30 (27-31) pg MCHC 33 (31-36) g/dl RDW 15 (10.5-15) % Plt Count 152 (150-450) 10^3/ul MPV 7.9 (7.4-10.4) um3 Neut % (Auto) 59.5 (38-83) % Lymph % (Auto) 29.6 (25-47) % [place] % (Auto) 7.8 H (0-7) % Eos % (Auto) 2.5 (0-6) % Baso % (Auto) 0.6 (0-2) % Absolute Neuts (auto) 2.8 (1.5-7.7) 10^3/ul Absolute Lymphs (auto) 1.4 (1.0-4.8) 10^3/ul Absolute Monos (auto) 0.4 (0-0.8) 10^3/ul Absolute Eos (auto) 0.1 (0-0.6) 10^3/ul Absolute Basos (auto) 0 (0-0.2) 10^3/ul Absolute Nucleated RBC 0 10^3/ul Nucleated RBC % 0.1 Sodium (139-145) mmol/L Potassium (3.5-5.0) mmol/L Chloride (101-111) mmol/L Carbon Dioxide (22-32) mmol/L Anion Gap (2-11) mmol/L BUN (6-24) mg/dL Creatinine (0.51-0.95) mg/dL Est GFR ( Amer) (>60) Est GFR (Non-Af Amer) (>60) BUN/Creatinine Ratio (8-20) Glucose (70-100) mg/dL POC Glucose (mg/dL) 58 L (70-100) mg/dL Lactic Acid (0.5-2.0) mmol/L Calcium (8.6-10.3) mg/dL Magnesium (1.9-2.7) mg/dL Total Bilirubin (0.2-1.0) mg/dL AST (13-39) U/L ALT (7-52) U/L Alkaline Phosphatase (34-104) U/L Total Protein (6.4-8.9) g/dL Albumin (3.2-5.2) g/dL Globulin (2-4) g/dL Albumin/Globulin Ratio (1-3) TSH (0.34-5.60) mcIU/mL Urine Color Yellow Urine Appearance Clear Urine pH 7.0 (5-9) Ur Specific [place] 1.009 L (1.010-1.030) Urine Protein Negative (Negative) Urine Ketones Negative (Negative) Urine Blood Negative (Negative) Urine Nitrate Negative (Negative) Urine Bilirubin Negative (Negative) Urine Urobilinogen Negative (Negative) Ur Leukocyte Esterase Trace A (Negative) Urine WBC (Auto) Trace(0-5/hpf) (Absent) Urine RBC (Auto) Absent (Absent) Ur Squamous Epith Cells Present A (Absent) Urine Bacteria Absent (Absent) Urine Glucose Negative (Negative) Urine Ascorbic Acid * A (Negative) Salicylates (<30) mg/dL Urine Opiates Screen (None Detect) Acetaminophen mcg/mL Ur Barbiturates Screen (None Detect) Ur Phencyclidine Scrn (None Detect) Ur Amphetamines Screen (None Detect) U Benzodiazepines Scrn (None Detect) [place] (0.6-1.2) mmol/L Urine Cocaine Screen (None Detect) U Cannabinoids Screen (None Detect) Serum Alcohol (<10) mg/dL 08/18/17 08/18/17 08/18/17 Range/Units 03:37 03:37 03:37 WBC (3.5-10.8) 10^3/ul RBC (4.0-5.4) 10^6/ul Hgb (12.0-16.0) g/dl Hct (35-47) % MCV (80-97) fL MCH (27-31) pg MCHC (31-36) g/dl RDW (10.5-15) % Plt Count (150-450) 10^3/ul MPV (7.4-10.4) um3 Neut % (Auto) (38-83) % Lymph % (Auto) (25-47) % [place] % (Auto) (0-7) % Eos % (Auto) (0-6) % Baso % (Auto) (0-2) % Absolute Neuts (auto) (1.5-7.7) 10^3/ul Absolute Lymphs (auto) (1.0-4.8) 10^3/ul Absolute Monos (auto) (0-0.8) 10^3/ul Absolute Eos (auto) (0-0.6) 10^3/ul Absolute Basos (auto) (0-0.2) 10^3/ul Absolute Nucleated RBC 10^3/ul Nucleated RBC % Sodium 142 (139-145) mmol/L Potassium 3.3 L (3.5-5.0) mmol/L Chloride 109 (101-111) mmol/L Carbon Dioxide 25 (22-32) mmol/L Anion Gap 8 (2-11) mmol/L BUN 13 (6-24) mg/dL Creatinine 0.92 (0.51-0.95) mg/dL Est GFR ( Amer) 81.8 (>60) Est GFR (Non-Af Amer) 63.6 (>60) BUN/Creatinine Ratio 14.1 (8-20) Glucose 102 H (70-100) mg/dL POC Glucose (mg/dL) (70-100) mg/dL Lactic Acid 1.2 (0.5-2.0) mmol/L Calcium 9.5 (8.6-10.3) mg/dL Magnesium 2.3 (1.9-2.7) mg/dL Total Bilirubin 0.30 (0.2-1.0) mg/dL AST 17 (13-39) U/L ALT 22 (7-52) U/L Alkaline Phosphatase 83 (34-104) U/L Total Protein 6.6 (6.4-8.9) g/dL Albumin 4.1 (3.2-5.2) g/dL Globulin 2.5 (2-4) g/dL Albumin/Globulin Ratio 1.6 (1-3) TSH 6.44 H (0.34-5.60) mcIU/mL Urine Color Urine Appearance Urine pH (5-9) Ur Specific [place] (1.010-1.030) Urine Protein (Negative) Urine Ketones (Negative) Urine Blood (Negative) Urine Nitrate (Negative) Urine Bilirubin (Negative) Urine Urobilinogen (Negative) Ur Leukocyte Esterase (Negative) Urine WBC (Auto) (Absent) Urine RBC (Auto) (Absent) Ur Squamous Epith Cells (Absent) Urine Bacteria (Absent) Urine Glucose (Negative) Urine Ascorbic Acid (Negative) Salicylates < 2.50 (<30) mg/dL Urine Opiates Screen None detected (None Detect) Acetaminophen < 15 mcg/mL Ur Barbiturates Screen None detected (None Detect) Ur Phencyclidine Scrn None detected (None Detect) Ur Amphetamines Screen None detected (None Detect) U Benzodiazepines Scrn None detected (None Detect) [place] 0.70 (0.6-1.2) mmol/L Urine Cocaine Screen None detected (None Detect) U Cannabinoids Screen None detected (None Detect) Serum Alcohol < 10 (<10) mg/dL Assess/Plan/Problems-Billing Assessment: 52 yo F recent UTI in June then recent GI illness pw AMS at 230 am found with FSG 50s when EMS arrived - Patient Problems (1) Hypoglycemia Comment: suspect in setting of decreased PO intake with diarrheal illness and skipped dinner Monitor overnight resume lantus at lower dose on discharge (2) Diabetes Comment: Check hba1c metformin otherwise holding home meds (3) Schizoaffective disorder, depressive type Comment: clozapine, lithium, (4) DVT prophylaxis Comment: HSQ
[2017-08-18] MEDS: Mometasone/Formoter 200/5 MDI INH SCH (20:52)
[2017-08-18] MEDS: CloZAPine TAB* 100 MG TAB PO SCH (21:28)
[2017-08-18] MEDS: Lithium Carbonate TAB* 300 MG PO SCH (21:29)
[2017-08-18] MEDS: metFORMIN* 1,000 MG TAB PO SCH (21:30)
[2017-08-18] MEDS: Topiramate TAB(*) 100 MG PO SCH (21:30)
[2017-08-19] MEDS: Heparin VIAL(*) 5000 UNITS/ML VIAL (FIVE THOUSAND) SUBCUT SCH ×3 (05:22→21:19)
[2017-08-19] MEDS: Levothyroxine TAB* 88 MCG TAB PO SCH (05:23)
[2017-08-19] MEDS: Mometasone/Formoter 200/5 MDI INH SCH ×2 (07:42→20:36)
[2017-08-19] MEDS: FLUoxetine CAP* 20 MG PO SCH (08:16)
[2017-08-19] MEDS: metFORMIN* 1,000 MG TAB PO SCH (08:16)
[2017-08-19] MEDS: Omeprazole CAP* 20 MG PO SCH (08:16)
[2017-08-19] MEDS: Vitamin THERAPEUTIC TAB PO SCH (08:16)
[2017-08-19] MEDS: Topiramate TAB(*) 100 MG PO SCH ×2 (08:17→21:19)
[2017-08-19] MEDS: Fluticasone NASAL SPRAY 50MCG* 16 gm SPRAY BTL BOTH NARES SCH (08:18)
[2017-08-19] MEDS ORDERED: Piperacillin/Tazobac ADVAN(*) 3.375 GM in NS 0.9% 100 ML* 100 ML IVPB ONE (11:00)
[2017-08-19] MEDS ORDERED: Zosyn per Pharmacy* NOTE FOLLOW UP SCH (11:00)
[2017-08-19 12:22] LABS: ABS Basophils 0 10^3/ul (0-0.2); ABS Eosinophils 0.2 10^3/ul (0-0.6); ABS Lymphocytes 1.2 10^3/ul (1.0-4.8); ABS Monocytes 0.5 10^3/ul (0-0.8); ABS Neutrophils 3.1 10^3/ul (1.5-7.7); ABS Nucleated RBC 0 10^3/ul; Eosinophil % 3.1 % (0-6); Hematocrit 38 % (35-47); Hemoglobin 12.6 g/dl (12.0-16.0); Lymphocyte % 24.4 % (25-47); Mean Corpuscular HGB Conc 33 g/dl (31-36); Mean Corpuscular Hemoglobin 30 pg (27-31); Mean Corpuscular Volume 89 fL (80-97); Mean Platelet Volume 8.3 um3 (7.4-10.4); Nucleated Red Blood Cells % 0; Platelet Count 163 10^3/ul (150-450); Red Blood Count 4.27 10^6/ul (4.0-5.4); Red Cell Distribution Width 16 % (10.5-15)
[2017-08-19 12:37] LABS: EGFR Non-African American 56.5 (>60)
[2017-08-19] MEDS: ZOSYN 3.375 GM Q8H per EXTENDED INFUSION IVPB SCH ×2 (15:47)
--- NOTE | 2017-08-19 15:48 | PN ---
Subjective Date of Service: 08/19/17 Interval History: Seen this AM and was noted to be lethargic. Easy to wake but fell asleep quickly. She had no other complaints. She notes this is not her baseline. Labs indicated glucose of 65 and she woke to eat a meal. Seen thsi afternoon she is much more alert but still reports feeling fatigued. She denies symptoms but continues to have suprapubic tenderness. Objective Active Medications: Acetaminophen (Tylenol Tab*) 650 mg PO Q4H PRN PRN Reason: FEVER/PAIN Al Hydrox/Mg Hydrox/Simethicone (Maalox Plus*) 30 ml PO Q6H PRN PRN Reason: INDIGESTION Albuterol (Ventolin Hfa Inhaler*) 1 puff INH Q6H PRN PRN Reason: SHORTNESS OF BREATH Clozapine (Clozapine Tab*) 300 mg PO BEDTIME [facility] Last Admin: 08/18/17 21:28 Dose: 300 mg Docusate Sodium (Colace Cap*) 100 mg PO BID PRN PRN Reason: CONSTIPATION Fluoxetine HCl (Prozac Cap*) 40 mg PO QAM [facility] Last Admin: 08/19/17 08:16 Dose: 40 mg Fluticasone Propionate (Flonase Nasal [place] 50mcg*) 2 spray BOTH NARES DAILY [facility] Last Admin: 08/19/17 08:18 Dose: Not Given Heparin Sodium (Porcine) (Heparin Vial(*)) 5,000 units SUBCUT Q8HR [facility] Last Admin: 08/19/17 13:28 Dose: 5,000 units Piperacillin Sod/Tazobactam (Sod 3.375 gm/ Sodium Chloride) 100 mls @ 25 mls/ hr IVPB Q8H [facility] Levothyroxine Sodium (Synthroid Tab*) 88 mcg PO DAILY@0600 [facility] Last Admin: 08/19/17 05:23 Dose: 88 mcg [place] Carbonate ([place] Carbonate Tab*) 900 mg PO QPM [facility] Last Admin: 08/18/17 21:29 Dose: 900 mg Mometasone Furoate/Formoterol Fumar (Dulera 200/5 Mdi*) 2 puff INH BID [facility] PRN Reason: Protocol Last Admin: 08/19/17 07:42 Dose: 2 puff Multivitamins (Theragran Tab*) 1 tab PO DAILY [facility] Last Admin: 08/19/17 08:16 Dose: 1 tab Omeprazole (Prilosec Cap*) 20 mg PO 0730 [facility] Last Admin: 08/19/17 08:16 Dose: 20 mg Ondansetron HCl (Zofran 40 Mg Vial*) 4 mg IV Q4H PRN PRN Reason: NAUSEA/VOMITING Last Admin: 08/18/17 15:53 Dose: 4 mg Pharmacy Consult (Zosyn Per Pharmacy*) 1 note FOLLOW UP .ZOSYN PER PHARMACY [facility] Topiramate (Topamax(*)) 100 mg PO BID [facility] Last Admin: 08/19/17 08:17 Dose: 100 mg Oxygen Devices in Use Now: None Appearance: NAD Eyes: No Scleral Icterus, PERRLA Ears/Nose/Mouth/Throat: Clear Oropharnyx, Mucous Membranes Moist Neck: NL Appearance and Movements; NL JVP, Trachea Midline Respiratory: Symmetrical Chest Expansion and Respiratory Effort, Clear to Auscultation Cardiovascular: RRR Abdominal: No Hepatosplenomegaly, - - suprapubic tenderness Skin: No Rash or Ulcers Neurological: Alert and Oriented x 3 Result Diagrams: 08/19/17 11:51 08/19/17 11:51 Additional Lab and Data: Lab Results 08/18/17 08/18/17 08/18/17 Range/Units 03:26 03:36 03:37 WBC 4.7 (3.5-10.8) 10^3/ul RBC 4.48 (4.0-5.4) 10^6/ul Hgb 13.4 (12.0-16.0) g/dl Hct 40 (35-47) % MCV 90 (80-97) fL MCH 30 (27-31) pg MCHC 33 (31-36) g/dl RDW 15 (10.5-15) % Plt Count 152 (150-450) 10^3/ul MPV 7.9 (7.4-10.4) um3 Neut % (Auto) 59.5 (38-83) % Lymph % (Auto) 29.6 (25-47) % [place] % (Auto) 7.8 H (0-7) % Eos % (Auto) 2.5 (0-6) % Baso % (Auto) 0.6 (0-2) % Absolute Neuts (auto) 2.8 (1.5-7.7) 10^3/ul Absolute Lymphs (auto) 1.4 (1.0-4.8) 10^3/ul Absolute Monos (auto) 0.4 (0-0.8) 10^3/ul Absolute Eos (auto) 0.1 (0-0.6) 10^3/ul Absolute Basos (auto) 0 (0-0.2) 10^3/ul Absolute Nucleated RBC 0 10^3/ul Nucleated RBC % 0.1 Sodium (139-145) mmol/L Potassium (3.5-5.0) mmol/L Chloride (101-111) mmol/L Carbon Dioxide (22-32) mmol/L Anion Gap (2-11) mmol/L BUN (6-24) mg/dL Creatinine (0.51-0.95) mg/dL Est GFR ( Amer) (>60) Est GFR (Non-Af Amer) (>60) BUN/Creatinine Ratio (8-20) Glucose (70-100) mg/dL POC Glucose (mg/dL) 58 L (70-100) mg/dL Lactic Acid (0.5-2.0) mmol/L Calcium (8.6-10.3) mg/dL Magnesium (1.9-2.7) mg/dL Total Bilirubin (0.2-1.0) mg/dL AST (13-39) U/L ALT (7-52) U/L Alkaline Phosphatase (34-104) U/L Total Protein (6.4-8.9) g/dL Albumin (3.2-5.2) g/dL Globulin (2-4) g/dL Albumin/Globulin Ratio (1-3) TSH (0.34-5.60) mcIU/mL Urine Color Yellow Urine Appearance Clear Urine pH 7.0 (5-9) Ur Specific [place] 1.009 L (1.010-1.030) Urine Protein Negative (Negative) Urine Ketones Negative (Negative) Urine Blood Negative (Negative) Urine Nitrate Negative (Negative) Urine Bilirubin Negative (Negative) Urine Urobilinogen Negative (Negative) Ur Leukocyte Esterase Trace A (Negative) Urine WBC (Auto) Trace(0-5/hpf) (Absent) Urine RBC (Auto) Absent (Absent) Ur Squamous Epith Cells Present A (Absent) Urine Bacteria Absent (Absent) Urine Glucose Negative (Negative) Urine Ascorbic Acid * A (Negative) Salicylates (<30) mg/dL Urine Opiates Screen (None Detect) Acetaminophen mcg/mL Ur Barbiturates Screen (None Detect) Ur Phencyclidine Scrn (None Detect) Ur Amphetamines Screen (None Detect) U Benzodiazepines Scrn (None Detect) [place] (0.6-1.2) mmol/L Urine Cocaine Screen (None Detect) U Cannabinoids Screen (None Detect) Serum Alcohol (<10) mg/dL 08/18/17 08/18/17 08/18/17 Range/Units 03:37 03:37 03:37 WBC (3.5-10.8) 10^3/ul RBC (4.0-5.4) 10^6/ul Hgb (12.0-16.0) g/dl Hct (35-47) % MCV (80-97) fL MCH (27-31) pg MCHC (31-36) g/dl RDW (10.5-15) % Plt Count (150-450) 10^3/ul MPV (7.4-10.4) um3 Neut % (Auto) (38-83) % Lymph % (Auto) (25-47) % [place] % (Auto) (0-7) % Eos % (Auto) (0-6) % Baso % (Auto) (0-2) % Absolute Neuts (auto) (1.5-7.7) 10^3/ul Absolute Lymphs (auto) (1.0-4.8) 10^3/ul Absolute Monos (auto) (0-0.8) 10^3/ul Absolute Eos (auto) (0-0.6) 10^3/ul Absolute Basos (auto) (0-0.2) 10^3/ul Absolute Nucleated RBC 10^3/ul Nucleated RBC % Sodium 142 (139-145) mmol/L Potassium 3.3 L (3.5-5.0) mmol/L Chloride 109 (101-111) mmol/L Carbon Dioxide 25 (22-32) mmol/L Anion Gap 8 (2-11) mmol/L BUN 13 (6-24) mg/dL Creatinine 0.92 (0.51-0.95) mg/dL Est GFR ( Amer) 81.8 (>60) Est GFR (Non-Af Amer) 63.6 (>60) BUN/Creatinine Ratio 14.1 (8-20) Glucose 102 H (70-100) mg/dL POC Glucose (mg/dL) (70-100) mg/dL Lactic Acid 1.2 (0.5-2.0) mmol/L Calcium 9.5 (8.6-10.3) mg/dL Magnesium 2.3 (1.9-2.7) mg/dL Total Bilirubin 0.30 (0.2-1.0) mg/dL AST 17 (13-39) U/L ALT 22 (7-52) U/L Alkaline Phosphatase 83 (34-104) U/L Total Protein 6.6 (6.4-8.9) g/dL Albumin 4.1 (3.2-5.2) g/dL Globulin 2.5 (2-4) g/dL Albumin/Globulin Ratio 1.6 (1-3) TSH 6.44 H (0.34-5.60) mcIU/mL Urine Color Urine Appearance Urine pH (5-9) Ur Specific [place] (1.010-1.030) Urine Protein (Negative) Urine Ketones (Negative) Urine Blood (Negative) Urine Nitrate (Negative) Urine Bilirubin (Negative) Urine Urobilinogen (Negative) Ur Leukocyte Esterase (Negative) Urine WBC (Auto) (Absent) Urine RBC (Auto) (Absent) Ur Squamous Epith Cells (Absent) Urine Bacteria (Absent) Urine Glucose (Negative) Urine Ascorbic Acid (Negative) Salicylates < 2.50 (<30) mg/dL Urine Opiates Screen None detected (None Detect) Acetaminophen < 15 mcg/mL Ur Barbiturates Screen None detected (None Detect) Ur Phencyclidine Scrn None detected (None Detect) Ur Amphetamines Screen None detected (None Detect) U Benzodiazepines Scrn None detected (None Detect) [place] 0.70 (0.6-1.2) mmol/L Urine Cocaine Screen None detected (None Detect) U Cannabinoids Screen None detected (None Detect) Serum Alcohol < 10 (<10) mg/dL Assess/Plan/Problems-Billing Assessment: 52 yo F recent UTI in dx July 24 treated with bactrim (changed to macrobid after sensitivities resulted) followed by recent GI illness p/w AMS at 230 am when she was found with FSG 50s on EMS arrived - Patient Problems (1) Altered mental state Comment: suspect combination of effects from UTI and hypoglycemia lithium lvl wnl Mental status appears to improve with glucose Her greatest decline in mental status here appears to be in the AM which may be medication related. Temazepam was started 3 months prior. (2) Urinary tract infection Comment: e. coli start zosyn given multiple allergies transition to floroquinolone if able but last e coli was resistant to cipro, bactrim and she has an allergy to cephalosporins and augmentin. She was already treated with macrobid (3) Hypoglycemia Comment: suspected in setting of decreased PO intake with diarrheal illness and skipped dinner night of admission however hypoglycemia has continued. Pt has no other indications of sepsis. An inappropriate dose of lantus could account for this presentation however pt indicates she is 100% possitive she did not take a double dose or an inappropriate dose of insulin. Continue to monitor Holding insulins (4) Diabetes Comment: hba1c = 5.3% indicating her blood glucose is probably too tightly controlled. holding all dm2 meds (5) Schizoaffective disorder, depressive type Comment: clozapine, lithium, topamax, prozac temazepam I called and discussed medications with [facility] pharmacy and confirmed that all meds are correct dosing (6) DVT prophylaxis Comment: [facility]
[2017-08-19] MEDS: Lithium Carbonate TAB* 300 MG PO SCH (17:08)
[2017-08-19] MEDS: CloZAPine TAB* 100 MG TAB PO SCH (21:19)
[2017-08-20] MEDS: ZOSYN 3.375 GM Q8H per EXTENDED INFUSION IVPB SCH ×4 (00:26→07:50)
[2017-08-20] MEDS: Levothyroxine TAB* 88 MCG TAB PO SCH (05:44)
[2017-08-20] MEDS: Heparin VIAL(*) 5000 UNITS/ML VIAL (FIVE THOUSAND) SUBCUT SCH ×2 (05:45→13:16)
[2017-08-20 07:17] VITALS: BP 131/81
[2017-08-20] MEDS: Mometasone/Formoter 200/5 MDI INH SCH (07:42)
[2017-08-20] MEDS: Topiramate TAB(*) 100 MG PO SCH (07:50)
[2017-08-20] MEDS: Omeprazole CAP* 20 MG PO SCH (07:50)
[2017-08-20] MEDS: FLUoxetine CAP* 20 MG PO SCH (07:50)
[2017-08-20] MEDS: Fluticasone NASAL SPRAY 50MCG* 16 gm SPRAY BTL BOTH NARES SCH (07:50)
[2017-08-20] MEDS: Vitamin THERAPEUTIC TAB PO SCH (07:50)
--- NOTE | 2017-08-20 13:20 | RAD ---
INDICATION: RIGHT upper extremity swelling. Assess for DVT. COMPARISON: No relevant prior exams available on the [facility] PACS for comparison. TECHNIQUE: Duplex ultrasound of the RIGHT internal jugular, subclavian, axillary, brachial, radial, ulnar, basilic, and cephalic veins. With the exception of the non accessible subclavian vein compressibility of venous segments assessed. Augmentation and phasicity assessed throughout. REPORT: The deep RIGHT internal jugular, subclavian, axial, and brachial veins are patent. Occlusive DVT evident at the mid segment of the radial vein. Conspicuity of the ulnar vein is limited however it appears grossly patent. The proximal to mid superficial basilic vein at the forearm is thrombosed. The cephalic vein is not visualized. Soft tissue swelling noted at the forearm and wrist. Patency of the LEFT subclavian and internal jugular veins documented. IMPRESSION: 1. RIGHT upper extremity DVT at the radial vein of the forearm. 2. RIGHT upper extremity superficial venous thrombosis at the basilic vein. The superficial cephalic vein could not be visualized limiting assessment.
--- NOTE | 2017-08-21 13:00 | DS ---
CC: Dr. Bianchi * DISCHARGE SUMMARY: DATE OF ADMISSION: 08/18/17 DATE OF DISCHARGE: 08/20/17 PRIMARY CARE PROVIDER: Dr. Bianchi. PRIMARY DIAGNOSES: 1. Hypoglycemia. 2. Urinary tract infection with Escherichia coli. 3. Altered mental status. 4. Right upper extremity distal deep venous thrombosis in the radial vein. SECONDARY DIAGNOSES: Include: 1. History of schizoaffective disorder. 2. Insulin-dependent type 2 diabetes mellitus. 3. History of pancreatitis. 4. History of intellectual developmental disability. 5. History of hypoglycemia. 6. History of asthma. MEDICATIONS ON DISCHARGE: Include: 1. Budesonide two puffs twice daily. 2. Albuterol one puff every 6 hours as needed. 3. Ibuprofen 400 mg every 6 hours as needed for pain. 4. Fluticasone two sprays both nares daily. 5. Prozac 40 mg in the morning. 6. Docusate 100 mg twice daily. 7. Flexeril 10 mg 3 times a day as needed. 8. Clozapine 300 mg at bedtime. 9. Pantoprazole 40 mg daily. 10. [place] 900 mg in the evening. 11. Levothyroxine 88 mcg daily. 12. Topamax 100 mg twice daily. 13. Temazepam 15 mg at bedtime. 14. Januvia 100 mg daily. 15. Rosuvastatin or Crestor 5 mg daily. 16. Metformin 1000 mg twice daily. 17. Multivitamin 1 tab daily. 18. Macrobid 100 mg twice daily for 5 additional days. Please note the discontinuation of high dose insulin Lantus 4 times a day as well as insulin aspart 8 mg with meals. PERTINENT MICROBIOLOGY: Urine culture positive for E. coli, resistant to ampicillin, ciprofloxacin, levofloxacin, tetracycline and Bactrim, which is the same resistant profile from previous urinary tract infection that resulted on 07/24/17. PERTINENT LABORATORY DATA: Hemoglobin A1c 5.3%. Urine toxicology is bland. [place] level was 0.7 on presentation. HISTORY OF PRESENT ILLNESS AND HOSPITAL COURSE: This is a 52-year-old female with past medical history as outlined in the history of present illness on the day of admission including intellectual developmental disability and insulin- dependent diabetes mellitus, who has been feeling ill with a stomach bug prior to her presentation, skipped dinner the night of presentation and was found confused on the toilet by her roommate. EMS was activated and she was found hypoglycemic with sugars in the 50, presented to the hospital where she did have some improvement in her mental status with administration of glucose. All insulin products were held and the patient was watched; however, her glucose again was low the following day, tory at 65. She woke again and ate and had increased alertness throughout the day; however, she was found to have E. coli in her urine consistent with previous microbiology from June. The patient denied any urinary symptoms including dysuria, hesitancy or urinary frequency. However, in the setting of her altered mental status and presentation, she was given 2-1/2 days of Zosyn. This antibiotic was chosen secondary to her allergy noted to CEPHALOSPORINS, AMOXICILLIN and TETRACYCLINE, as well as the resistance pattern, which include fluoroquinolones, ampicillin as well as Bactrim. The patient previously received Macrobid in June, which she noted she took diligently and this may have represented asymptomatic colonization; however, she did receive several days of IV antibiotics and will continue additional 5 days of Macrobid as indicated above. I do not have a clear explanation for her hypoglycemia that lasted at least 48 hours in the absence of any insulin. The patient was queried at length about inappropriately high dose of insulin or accidentally doubling doses. The patient denies this vehemently. She says she is 100% sure she did not mix up her insulin dose. However, I still am suspicious that the patient may have taken her medication inappropriately, which will be a clear explanation for her prolonged fasting hypoglycemia. Additionally, her hemoglobin A1c would indicate that she may be too tightly controlled for an insulin-dependent diabetic and at risk for hypoglycemic episodes. At the time of discharge, I am not restarting insulin, but I am restarting oral hypoglycemic agents for her diabetes. I suspect that her fingersticks will continue to increase. I advised her to call her PCP once they are consistently above 200, at which time she can be advised the proper dose of long acting Lantus to restart. I have a call out to her family medicine physician at this time to discuss this plan of care with them prior to her presentation next Thursday the appointment that I have made. On the day of discharge, the patient was noted with increased size of her right forearm. An ultrasound was performed, which was notable for a right radial DVT as well as right upper extremity superficial venous thrombosis at the basilic vein. In discussing with the patient, she notes she has had at least 6 falls in the last 2 months secondary to poor balance. I did discuss with her retail equipment associate, who considered the risk of anticoagulation to likely outweigh the benefit as this is an upper extremity distal DVT in a person who has multiple falls. I agree with his recommendation, discussed with the patient and suggested monitoring without full dose anticoagulation. Additionally, the patient cannot take ASPIRIN secondary to her allergy. The patient is in agreement with this plan and we are so far not starting a blood thinner for her upper extremity DVT understanding there is a risk of propagation and pulmonary embolism. At followup, please; 1. Consider repeat ultrasound in 3 months to evaluate for resolution of right upper extremity radial DVT. 2. Restart insulin as necessary as indicated above. 3. Please evaluate for any worsening or development of symptoms on Macrobid , which the patient had previously taken. 4. No other specific labs or vitals that need followup. All of her home antipsychotic medications were confirmed with [facility] and are accurate at the time of her presentation and her discharge. Reasons to return to the hospital including but not limited to recurrent or worsening symptoms including chest pain or shortness of breath or pleurisy, lightheadedness, loss of consciousness or near loss of consciousness, bleeding from any source, increased swelling of her right upper extremity, weakness, sweating, increased fatigue, inability to obtain or tolerate medications were discussed with the patient at length. She acknowledged understanding. TIME SPENT: Greater than 60 minutes was spent on the discharge of this patient , greater than half was spent [id number] with the patient. [id number]/[facility] #: [id number] DAVION
== END 2017-08-20 16:23 | disposition home health service (06) | DRG 638 ==
LOC: ED 03:05 → MEDTELE 05:34 → ED 06:19 → OBSVTOIN 08-19 14:29
PROVIDERS: ADMIT Pediatrics; ATTEND Internal Medicine
DX: E11.649 Type 2 diabetes mellitus with hypoglycemia without coma (principal); N39.0 Urinary tract infection, site not specified; Z68.41 Body mass index [BMI] 40.0-44.9, adult; I82.621 Acute embolism and thrombosis of deep veins of right upper extremity; E78.00 Pure hypercholesterolemia, unspecified; J45.909 Unspecified asthma, uncomplicated; E66.01 Morbid (severe) obesity due to excess calories; F81.9 Developmental disorder of scholastic skills, unspecified; R19.7 Diarrhea, unspecified; Z16.24 Resistance to multiple antibiotics; F25.1 Schizoaffective disorder, depressive type; B96.20 Unspecified Escherichia coli [E. coli] as the cause of diseases classified elsewhere; Z88.1 Allergy status to other antibiotic agents; Z88.0 Allergy status to penicillin; Z88.8 Allergy status to other drugs, medicaments and biological substances; Z87.11 Personal history of peptic ulcer disease; Z98.51 Tubal ligation status; Z82.49 Family history of ischemic heart disease and other diseases of the circulatory system; Z83.3 Family history of diabetes mellitus; Z91.5 Personal history of self-harm; Z79.84 Long term (current) use of oral hypoglycemic drugs; Z79.51 Long term (current) use of inhaled steroids
CPT/HCPCS: 36415; 70450; 80048; 80053; 80178; 80307; 80320; 80329; 81003; 81015; 83036; 83605; 83735; 84443; 85025; 87077; 87086; 87186; 93005; 94640; 99284; A9270-GY; G0378; G0480; J1644; J2405; J2543

== ENCOUNTER 2017-08-22 17:35 | Emergency (ER) | payer MEDICARE, MEDICAID ==
[2017-08-22 17:56] VITALS: BP 136/77
--- NOTE | 2017-08-22 19:14 | UC ---
Mattie Mesa Julia, scribed for Des Rutledge MD on 08/22/17 at 1842 . Skin Complaint HPI - HPI Summary HPI Summary: This patient is a 52 year old F presenting to [facility] with a chief complaint of worsening burning pain and erythema to the right hand and wrist since 08/19/17. Patient was recently admitted to [facility] for DVT in the RUE and was released . She was not placed on blood thinners at this time. Patient denies fever and chills. Pain is 10/10 in severity. PMHx of HTN, NIDDM, and schizophrenia. - History of Current Complaint Chief Complaint: UCSkin Time Seen by Provider: 08/22/17 18:25 Stated Complaint: SWELLING,PAIN,REDNESS R HAND Hx Obtained From: Patient Onset/Duration: Gradual Onset, Lasting Days Timing: Constant Onset Severity: Mild Current Severity: Severe Pain Intensity: 10 Pain Scale Used: 0-10 Numeric Location: Hand (Right) - wrist, and forearm Character: Swelling, Pain Associated Signs & Symptoms: Negative: Fever, Chills Related History: Other: - recent hospitalization for DVT - Allergy/Home Medications Allergies/Adverse Reactions: Allergies Allergy/AdvReac Type Severity Reaction Status Date / Time aspirin Allergy Unknown Verified 08/22/17 17:56 Reaction Details Cephalosporins Allergy Rash Verified 08/22/17 17:56 amoxicillin AdvReac Nausea And Verified 08/22/17 17:56 Vomiting Tetracyclines AdvReac Nausea And Verified 08/22/17 17:56 Vomiting Oranges Allergy Swelling Uncoded 08/22/17 17:56 Review of Systems Constitutional: Negative Skin: Other - erythema to R wrist Musculoskeletal: Edema - R hand and wrist, Myalgia - R wrist All Other Systems Reviewed And Are Negative: Yes PMH/Surg Hx/FS Hx/Imm Hx Endocrine History: Diabetes Psychological History: Schizophrenia Other History Of: Negative For: HIV, Hepatitis B, Hepatitis C, Anticoagulant Therapy - Surgical History Surgical History: Yes Surgery Procedure, Year, and Place: tubal ligation - Family History Known Family History: Positive: Cardiac Disease, Hypertension, Diabetes - Social History Alcohol Use: None Substance Use Type: None Smoking Status (MU): Never Smoked Tobacco Amount Used/How Often: states that she smoked one cigarette when she was 16 yrs. old Have You Smoked in the Last Year: No - Immunization History Most Recent Influenza Vaccination: this flu season ([id number]) Most Recent Pneumonia Vaccination: ten years ago Physical Exam - Summary Physical Exam Summary: General: well-appearing, no pain distress Skin: warm, color reflects adequate perfusion, dry Head: normal Eyes: EOMI, DEV ENT: normal Neck: supple, nontender Respiratory: CTA, breath sounds present Cardiovascular: RRR Abdomen: soft, nontender Bowel: present Musculoskeletal: strength/ROM intact, swelling in R hand and forearm, erythema on dorsal aspect of hand is worse than the forearm, good capillary refill Neurological: sensory/motor intact, A&O x3 Psychological: affect/mood appropriate Triage Information Reviewed: Yes Vital Signs: Initial Vital Signs Temp 98.2 F 08/22/17 17:47 Pulse 89 08/22/17 17:47 Resp 22 08/22/17 17:47 BP 136/77 08/22/17 17:47 Pulse Ox 98 08/22/17 17:47 Vital Signs Reviewed: Yes Course/Dx - Course Course Of Treatment: THE SWEELING HAS WORSENED SINCE D/C FROM THE HOSPITAL GIVING CONCERN OF WORSENING OF RUE DVT AND POSSIBLE CELLULITIS. THIS WAS DISCUSSED WITH THE PATIENT AND SHE WILL BE TRANSFERED TO THE ED FOR FURTHER EVALUATION AND CARE. DISCUSSED WITH THE ED CHARGE NURSE. - Diagnoses Provider Diagnoses: RIGHT HAND AND FOREARM SWELLING AND ERYTHEMA. RUE DVT Discharge - Sign-Out/Discharge Documenting (check all that apply): Discharge/Admit/Transfer - TRANSFER TO THE EMERGENCY DEPARTMENT - Discharge Plan Condition: Stable Disposition: TRANS HIGHER LVL OF CARE FAC Referrals: Jason Bianchi MD [Primary Care Provider] - - Billing Disposition and Condition Condition: STABLE Disposition: EMTALA The documentation as recorded by the Mattie boss Julia accurately reflects the service I personally performed and the decisions made by me, Des Rutledge MD.
== END 2017-08-22 19:20 | disposition short-term general hospital (02) ==
LOC: UCEAST 17:35
DX: M79.89 Other specified soft tissue disorders (principal); L53.9 Erythematous condition, unspecified; E11.9 Type 2 diabetes mellitus without complications; Z79.84 Long term (current) use of oral hypoglycemic drugs; F20.9 Schizophrenia, unspecified; Z86.718 Personal history of other venous thrombosis and embolism; Z88.6 Allergy status to analgesic agent; Z88.0 Allergy status to penicillin; Z88.1 Allergy status to other antibiotic agents
CPT/HCPCS: 99213; G0463

== ENCOUNTER 2017-08-22 19:44 | Inpatient (IN) | payer MEDICARE, MEDICAID ==
[2017-08-22] MEDS ORDERED: Vancomycin(*) 1,000 MG in NS 0.9% 250 ML* 250 ML IVPB ONE (19:59)
[2017-08-22 20:38] LABS: ABS Basophils 0 10^3/ul (0-0.2); ABS Eosinophils 0.2 10^3/ul (0-0.6); ABS Lymphocytes 1.3 10^3/ul (1.0-4.8); ABS Monocytes 0.7 10^3/ul (0-0.8); ABS Neutrophils 6.7 10^3/ul (1.5-7.7); ABS Nucleated RBC 0 10^3/ul; Eosinophil % 2.3 % (0-6); Hematocrit 37 % (35-47); Hemoglobin 12.3 g/dl (12.0-16.0); Lymphocyte % 14.4 % (25-47); Mean Corpuscular HGB Conc 34 g/dl (31-36); Mean Corpuscular Hemoglobin 30 pg (27-31); Mean Corpuscular Volume 89 fL (80-97); Mean Platelet Volume 8.1 um3 (7.4-10.4); Nucleated Red Blood Cells % 0.1; Platelet Count 172 10^3/ul (150-450); Red Blood Count 4.13 10^6/ul (4.0-5.4); Red Cell Distribution Width 15 % (10.5-15); White Blood Count 8.9 10^3/ul (3.5-10.8)
[2017-08-22 20:45] LABS: INR 0.88 (0.77-1.02)
[2017-08-22 20:52] LABS: EGFR Non-African American 52.9 (>60)
[2017-08-23] MEDS ORDERED: CMCS:Melatonin (NF) 3 MG TAB PO PRN (00:28)
[2017-08-23] MEDS ORDERED: NS 0.9% 1000 ML* 1,000 ML IV SCH (00:30)
[2017-08-23] MEDS ORDERED: Albuterol HFA INHALER* 8 gm MDI INH PRN (00:37)
[2017-08-23] MEDS ORDERED: Cyclobenzaprine TAB* 10 MG PO PRN (00:37)
--- NOTE | 2017-08-23 00:39 | HP ---
H&P (Free Text) History and Physical: PCP: Bárbara Bianchi MD Date/Time: 08/22/2017 2130 Reason for Consult: R hand pain & swelling HPI: Mrs Urban is a 52YO [place] [facility] with diagnoses of hypoglycemia, UTI, AMS, & RUE distal DVT in the radial vein. She also has a HX of schizoaffective disorder, insulin requiring DM2, pancreatitis, intellectual developmental disability, & asthma. She relates increasing R hand pain & swelling since discharge. She has had some chills, but denies fever, sweats, N/V/D, chest pain, SOB, palpitations, light-headedness, or other issues. PMedHx insulin requiring DM2 schizoaffective disorder pancreatitis asthma intellectual developmental disability morbid obesity Ambulatory Orders Albuterol HFA INHALER* [Ventolin HFA Inhaler*] 1 puff INH Q6H PRN #0 mdi Docusate CAP* [Colace Cap*] 100 mg PO BID #60 cap MDD 200 mg 03/18/17 FLUoxetine CAP* [Prozac CAP*] 40 mg PO QAM #30 cap MDD 40 mg 03/18/17 Fluticasone NASAL SPRAY 50MCG* [Flonase NASAL SPRAY 50MCG*] 2 spray BOTH NARES DAILY btl 03/18/17 Ibuprofen TAB* [Motrin TAB* 400 MG] 400 mg PO Q6H PRN tab 03/18/17 Levothyroxine TAB* [Synthroid 88 MCG TAB*] 88 mcg PO DAILY@0600 #30 tab Topiramate TAB(*) [Topamax 100 mg tab] 100 mg PO BID #60 tab 03/18/17 Vitamin THERAPEUTIC TAB* [Theragran TAB*] 1 tab PO DAILY #30 tab 03/18/17 metFORMIN* [Glucophage 1000 MG TAB *] 1,000 mg PO BID #60 tab 03/18/17 CloZAPine TAB* 300 mg PO BEDTIME MDD 300 mg 07/24/17 Cyclobenzaprine TAB* [Flexeril 10 MG TAB*] 10 mg PO TID PRN 07/24/17 [place] Carbonate TAB* 900 mg PO QPM 07/24/17 Temazepam CAP* [Restoril CAP*] 15 mg PO BEDTIME 07/24/17 Sitagliptin Phosphate [Januvia] 100 mg PO DAILY 08/22/17 Tramadol HCl [Tramadol HCl] 50 mg PO DAILY PRN 08/22/17 Allergies aspirin Allergy (Verified 08/22/17 17:56) Unknown Reaction Details Cephalosporins Allergy (Verified 08/22/17 17:56) Rash amoxicillin Adverse Reaction (Verified 08/22/17 17:56) Nausea And Vomiting Tetracyclines Adverse Reaction (Verified 08/22/17 17:56) Nausea And Vomiting Oranges Allergy (Uncoded 08/22/17 17:56) Swelling SocHx: denies HX tobacco, alcohol, & recreational drugs; lives in an apartment with a roommate; full code status FamHx: reviewed & non-contributory to presentation ROS: as above, otherwise reviewed and all were negative vitals: Vital Signs Temp 36.4 C 08/22/17 19:53 Pulse 81 08/22/17 23:14 Resp 16 08/22/17 19:53 BP 116/82 08/22/17 23:14 Pulse Ox 97 08/22/17 23:14 Intake & Output 08/22/17 08/22/17 08/23/17 11:59 23:59 11:59 Intake Total 500 Balance 500 Weight 111.584 kg Intake: IV Fluids 250 IVPB 250 Constitutional: NAD, normally developed, morbidly obese white female HEENM: atraumatic; sclera/conjunctiva: anicteric/clear; hearing: clinically intact; oropharynx: clear, moist Neck: soft tissue: non-tender; thyroid: normal Pulmonary: clear to auscultation bilaterally, good aeration, no accessory muscle use CV: RR/RR, normal S1S2, no carotid bruit, no jugular venous distention, 2+ B DP/ PT, no LE edema, BUE capillary refill <2s Abdominal: soft, non-distended, non-tender, no rebound/guarding/rigidity, normoactive bowel sounds, no hepatosplenomegaly or masses, no costovertebral angle tenderness Musculoskeletal: general: grossly intact Integumental: R hand & distal wrist with erythema, edema, tenderness, & decreased active/passive ROM 2nd pain, minimal warmth Psychiatric orientation: AA&O to PPS affect: calm mood: cooperative eye contact: fair content: seemingly reliable responses: timely insight: fair to good Testing: Lab Results 0508/22/17 08/22/17 Range/Units 20:22 20:22 20:22 WBC 8.9 (3.5-10.8) 10^3/ul RBC 4.13 (4.0-5.4) 10^6/ul Hgb 12.3 (12.0-16.0) g/dl Hct 37 (35-47) % MCV 89 (80-97) fL MCH 30 (27-31) pg MCHC 34 (31-36) g/dl RDW 15 (10.5-15) % Plt Count 172 (150-450) 10^3/ul MPV 8.1 (7.4-10.4) um3 Neut % (Auto) 75.4 (38-83) % Lymph % (Auto) 14.4 L (25-47) % [place] % (Auto) 7.5 H (0-7) % Eos % (Auto) 2.3 (0-6) % Baso % (Auto) 0.4 (0-2) % Absolute Neuts (auto) 6.7 (1.5-7.7) 10^3/ul Absolute Lymphs (auto) 1.3 (1.0-4.8) 10^3/ul Absolute Monos (auto) 0.7 (0-0.8) 10^3/ul Absolute Eos (auto) 0.2 (0-0.6) 10^3/ul Absolute Basos (auto) 0 (0-0.2) 10^3/ul Absolute Nucleated RBC 0 10^3/ul Nucleated RBC % 0.1 INR (Anticoag Therapy) 0.88 (0.77-1.02) APTT 31.0 (26.0-36.3) seconds Sodium 137 L (139-145) mmol/L Potassium 3.8 (3.5-5.0) mmol/L Chloride 110 (101-111) mmol/L Carbon Dioxide 18 L (22-32) mmol/L Anion Gap 9 (2-11) mmol/L BUN 16 (6-24) mg/dL Creatinine 1.08 H (0.51-0.95) mg/dL Est GFR ( Amer) 68.0 (>60) Est GFR (Non-Af Amer) 52.9 (>60) BUN/Creatinine Ratio 14.8 (8-20) Glucose 113 H (70-100) mg/dL Lactic Acid (0.5-2.0) mmol/L Calcium 9.2 (8.6-10.3) mg/dL Total Bilirubin 0.30 (0.2-1.0) mg/dL AST 20 (13-39) U/L ALT 36 (7-52) U/L Alkaline Phosphatase 78 (34-104) U/L C-Reactive Protein 30.95 H (< 5.00) mg/L Total Protein 6.5 (6.4-8.9) g/dL Albumin 3.9 (3.2-5.2) g/dL Globulin 2.6 (2-4) g/dL Albumin/Globulin Ratio 1.5 (1-3) // Range/Units 20:49 WBC (3.5-10.8) 10^3/ul RBC (4.0-5.4) 10^6/ul Hgb (12.0-16.0) g/dl Hct (35-47) % MCV (80-97) fL MCH (27-31) pg MCHC (31-36) g/dl RDW (10.5-15) % Plt Count (150-450) 10^3/ul MPV (7.4-10.4) um3 Neut % (Auto) (38-83) % Lymph % (Auto) (25-47) % [place] % (Auto) (0-7) % Eos % (Auto) (0-6) % Baso % (Auto) (0-2) % Absolute Neuts (auto) (1.5-7.7) 10^3/ul Absolute Lymphs (auto) (1.0-4.8) 10^3/ul Absolute Monos (auto) (0-0.8) 10^3/ul Absolute Eos (auto) (0-0.6) 10^3/ul Absolute Basos (auto) (0-0.2) 10^3/ul Absolute Nucleated RBC 10^3/ul Nucleated RBC % INR (Anticoag Therapy) (0.77-1.02) APTT (26.0-36.3) seconds Sodium (139-145) mmol/L Potassium (3.5-5.0) mmol/L Chloride (101-111) mmol/L Carbon Dioxide (22-32) mmol/L Anion Gap (2-11) mmol/L BUN (6-24) mg/dL Creatinine (0.51-0.95) mg/dL Est GFR ( Amer) (>60) Est GFR (Non-Af Amer) (>60) BUN/Creatinine Ratio (8-20) Glucose (70-100) mg/dL Lactic Acid 1.3 (0.5-2.0) mmol/L Calcium (8.6-10.3) mg/dL Total Bilirubin (0.2-1.0) mg/dL AST (13-39) U/L ALT (7-52) U/L Alkaline Phosphatase (34-104) U/L C-Reactive Protein (< 5.00) mg/L Total Protein (6.4-8.9) g/dL Albumin (3.2-5.2) g/dL Globulin (2-4) g/dL Albumin/Globulin Ratio (1-3) RUE DVT US: ordered, pending Impression: 52F HX distal RUE DVT dxd 08/20 & not on treatment presents with increased R hand/wrist swelling, erythema, & pain DIAGNOSIS & PLAN Primary RUE pain, swelling, & erythema : progression of superficial thrombophlebitis +/- infection : IV ABX : IVFs : pain control : OT evaluation : consider hand surgeon consult if no improvement or worsening : supportive care Secondary insulin requiring DM2 : A1c 5.30 Jul 2017 : insulin carb ratio diet : continue sitagliptin : hold metformin : correctional insulin schizoaffective disorder : review meds once reconciled asthma : PRN albuterol hypothyroidism : continue levothyroxine intellectual developmental disability : no acute issues Admission Rational: observation for initiation of ABX for possible infected superficial thrombophlebitis DVTp: heparin SQ Code Status: full
[2017-08-23] MEDS ORDERED: Vancomycin per Pharmacy* NOTE FOLLOW UP SCH (01:00)
--- NOTE | 2017-08-23 01:03 | ED ---
Yayo Mesa Rebecca, scribed for Sherine Gan MD on 08/22/17 at 2000 . Upper Extremity Pain - HPI Summary HPI Summary: Pt is a 52 y/o F BIBA referred from [facility] who presents to ED c/o R hand swelling and erythema. Sx have been present since Thursday (3 days ago). Associated pain on triage was ranked severe, 9/10. The hand is also slightly pruritic. Sx aggravated by movement, alleviated by nothing. Pt was admitted [place] [facility] [place]VT in the RUE and D/C on 08/20 (2 days ago) and was not placed on blood thinners. States that her symptoms were present at discharge on 08/20. - History of Current Complaint Chief Complaint: EDExtremityUpper Stated Complaint: SWOLLEN HAND Time Seen by Provider: 08/22/17 19:49 Hx Obtained From: Patient Hx Last Menstrual Period: april 29 Onset/Duration: Started Days Ago - 3 days, Still Present Severity Currently: Severe - 9/10 Pain Location: Hand - Right Aggravating Factor(s): Movement Alleviating Factor(s): Nothing Associated Signs & Symptoms: Positive: Swelling, Redness, Other - Pruritis - Allergies/Home Medications Allergies/Adverse Reactions: Allergies Allergy/AdvReac Type Severity Reaction Status Date / Time aspirin Allergy Unknown Verified 08/22/17 17:56 Reaction Details Cephalosporins Allergy Rash Verified 08/22/17 17:56 amoxicillin AdvReac Nausea And Verified 08/22/17 17:56 Vomiting Tetracyclines AdvReac Nausea And Verified 08/22/17 17:56 Vomiting Oranges Allergy Swelling Uncoded 08/22/17 17:56 Home Medications: Home Medications Sitagliptin Phosphate [Januvia] 100 mg PO DAILY 08/22/17 [History Confirmed ] Tramadol HCl [Tramadol HCl] 50 mg PO DAILY PRN 08/22/17 [History Confirmed 08/22] PMH/Surg Hx/FS Hx/Imm Hx Endocrine/Hematology History: Reports: Hx Diabetes - type II, Hx Thyroid Disease Denies: Hx Anticoagulant Therapy Cardiovascular History: Reports: Hx Deep Vein Thrombosis, Hx Hypercholesterolemia Denies: Hx Congestive Heart Failure, Hx Hypertension, Hx Myocardial Infarction, Hx Pacemaker/ICD Respiratory History: Reports: Hx Asthma Denies: Hx Chronic Obstructive Pulmonary Disease (COPD), Hx Lung Cancer, Hx Pneumonia, Hx Pulmonary Embolism GI History: Reports: Hx Ulcer History: Denies: Hx Dialysis, Hx Renal Disease Sensory History: Denies: Hx Contacts or Glasses, Hx Hearing Aid Opthamlomology History: Denies: Hx Contacts or Glasses Neurological History: Denies: Hx Dementia, Hx Migraine, Hx Seizures, Hx Transient Ischemic Attacks (TIA) Psychiatric History: Reports: Hx Inpatient Treatment, Hx Community Mental Health Tx, Hx Schizophrenia Denies: Hx Anxiety, Hx Eating Disorder, Hx Depression, Hx Bipolar Disorder, Hx of Violent Episodes Against Others - Cancer History Hx Chemotherapy: No Hx Radiation Therapy: No - Surgical History Surgery Procedure, Year, and Place: tubal ligation Infectious Disease History: No Infectious Disease History: Denies: Hx Hepatitis, Hx Human Immunodeficiency Virus (HIV), Traveled Outside the [place] in Last 30 Days - Family History Known Family History: Positive: Cardiac Disease, Hypertension, Diabetes - Social History Alcohol Use: None Hx Substance Use: No Substance Use Type: Reports: None Hx Tobacco Use: No Smoking Status (MU): Never Smoked Tobacco Amount Used/How Often: states that she smoked one cigarette when she was 16 yrs. old Have You Smoked in the Last Year: No Review of Systems Negative: Fever Positive: Other - R hand pain Positive: Other - R hand swelling, erythema, and mild pruritis All Other Systems Reviewed And Are Negative: Yes Physical Exam - Summary Physical Exam Summary: VITAL SIGNS: Reviewed. GENERAL: ~Patient is a well-developed and nourished female who is lying comfortable in the stretcher. Patient is not in any acute respiratory distress. HEAD AND FACE: No signs of trauma. No ecchymosis, hematomas or skull depressions. No sinus tenderness. EYES: PERRLA, EOMI x 2, No injected conjunctiva, no nystagmus. EARS: Hearing grossly intact. Ear canals and tympanic membranes are within normal limits. MOUTH: Oropharynx within normal limits. NECK: Supple, trachea is midline, no adenopathy, no JVD, no carotid bruit, no c- spine tenderness, neck with full ROM. CHEST: Symmetric, no tenderness at palpation LUNGS: Clear to auscultation bilaterally. No wheezing or crackles. CVS: Regular rate and rhythm, S1 and S2 present, no murmurs or gallops appreciated. ABDOMEN: Soft, non-tender. No signs of distention. No rebound no guarding, and no masses palpated. Bowel sounds are normal. EXTREMITIES: Swelling and tenderness on the proximal dorsum of the right hand and the distal aprt of the right forearm. She has pain with passive extension of the 2nd, 3rd, and 4th fingers on the right side. FROM in all major joints, no cyanosis or clubbing. NEURO: Alert and oriented x 3. No acute neurological deficits. Speech is normal and follows commands. SKIN: Dry and warm Triage Information Reviewed: Yes Vital Signs On Initial Exam: Initial Vitals Temp Pulse Resp BP Pulse Ox 97.6 F 89 16 146/91 95 08/22/17 19:53 08/22/17 19:53 08/22/17 19:53 08/22/17 19:53 08/22/17 19:53 Vital Signs Reviewed: Yes Diagnostics - Vital Signs Vital Signs Temp Pulse Resp BP Pulse Ox 08/22/17 19:53 97.6 F 89 16 146/91 95 - Laboratory Result Diagrams: 08/22/17 20:22 08/22/17 20:22 Lab Statement: Any lab studies that have been ordered have been reviewed, and results considered in the medical decision making process. - Ultrasound No standard instances Ultrasound Interpretation: Positive (See Comments) - Doppler: 1.FINDING CONSIDERED CRITICAL TO PATIENT CARE: Thrombus is demonstrated in the basilic vein in the forearm which is partially occlusive. There is also thrombus within the mid and distal portion of the radial vein in the forearm. 2. FINDING REQUIRING FOLLOW-UP OR FURTHER EVALUATION: The cephalic vein is not visualized. This is a nonspecific finding. Findings suggest occlusion. The age of this finding is indeterminate on this examination. ED physician reviewed this report. Ultrasound Interpretation Completed By: Radiologist Course/Dx - Course Assessment/Plan: Pt is a 52 y/o F BIBA referred from [facility] who presents to ED c /o R hand swelling and erythema with severe pain since Thursday (3 days ago). The hand is also slightly pruritic. Sx aggravated by movement. Pt was admitted to [facility] [place] DVT in the RUE and D/C on 08/20 (2 days ago) and was not placed on blood thinners. States that her symptoms were present at discharge on 08/20. BLood work was done with results including a CRP of 30.95. Venous doppler study of the right arm findings are above. In the ED course, pt received vancomycin. Discussed care of pt with Dr. Baum who requested US. Discussed care of pt with Dr. Baum again at 2321 who accepts pt for admission. Pt will be admitted with Dx of cellulitis of right hand and r/o tenosynovitis. Allergies noted. - Diagnoses Provider Diagnoses: Cellulitis of right hand - Physician Notifications Discussed Care of Patient With: Mynor Baum Time Discussed With Above Provider: 21:19 Instructed by Provider To: Other - Discussed the case and made him aware of the pt. Requesting US. Discussed care of pt with Dr. Baum at 2321 who accepts pt for admission. Discharge - Sign-Out/Discharge Documenting (check all that apply): Discharge/Admit/Transfer - Admit - Discharge Plan Condition: Stable Disposition: ADMITTED TO [facility] Referrals: Jason Bianchi MD [Primary Care Provider] - The documentation as recorded by the Yayo boss Rebecca accurately reflects the service I personally performed and the decisions made by me, Sherine Gan MD.
[2017-08-23] MEDS: traMADol TAB* 50 MG PO PRN ×3 (03:04→18:35)
[2017-08-23] MEDS: Vancomycin(*) 1,000 MG in NS 0.9% 250 ML* 250 ML IVPB SCH ×3 (05:23→23:23)
[2017-08-23] MEDS: Heparin VIAL(*) 5000 UNITS/ML VIAL (FIVE THOUSAND) SUBCUT SCH ×3 (05:24→21:45)
[2017-08-23] MEDS: Levothyroxine TAB* 88 MCG TAB PO SCH (05:24)
[2017-08-23] MEDS: Omeprazole CAP* 20 MG PO SCH (05:24)
[2017-08-23 06:00] LABS: Hematocrit 35 % (35-47); Hemoglobin 11.9 g/dl (12.0-16.0); Mean Corpuscular HGB Conc 34 g/dl (31-36); Mean Corpuscular Hemoglobin 30 pg (27-31); Mean Corpuscular Volume 89 fL (80-97); Mean Platelet Volume 7.9 um3 (7.4-10.4); Platelet Count 142 10^3/ul (150-450); Red Blood Count 3.99 10^6/ul (4.0-5.4); Red Cell Distribution Width 15 % (10.5-15); White Blood Count 6.2 10^3/ul (3.5-10.8)
[2017-08-23 06:26] LABS: EGFR Non-African American 62.1 (>60)
[2017-08-23 07:08] LABS: Urine Appearance Clear; Urine Blood Negative (Negative); Urine Color Yellow; Urine Ketones Negative (Negative); Urine Protein Negative (Negative); Urine Specific Gravity 1.006 (1.010-1.030); Urine Urobilinogen Negative (Negative)
[2017-08-23] MEDS: CMCS:SitaGLIPtin (NF) 100 MG TAB PO SCH (07:38)
[2017-08-23] MEDS: Ibuprofen TAB* 400 MG PO PRN ×3 (07:38→21:44)
--- NOTE | 2017-08-23 07:38 | RAD ---
INDICATION: Follow-up of deep venous thrombosis. COMPARISON: August 20, 2017 TECHNIQUE: Duplex interrogation of the Lowerextremity was performed. FINDINGS: Deep veins: There is no current deep venous thrombosis. The radial and ulnar veins appear patent. Superficial veins: There is again superficial thrombophlebitis with thrombus within the cephalic and basilic veins. Soft tissues:There are no soft tissue abnormalities. IMPRESSION: No current evidence of deep venous thrombosis. Superficial thrombophlebitis.
[2017-08-23] MEDS: Docusate CAP* 100 MG PO SCH ×2 (07:39→21:45)
[2017-08-23] MEDS: Acetaminophen TAB* 325 MG PO PRN ×2 (07:39→12:45)
[2017-08-23] MEDS: Topiramate TAB(*) 100 MG PO SCH ×2 (07:39→21:45)
[2017-08-23] MEDS: FLUoxetine CAP* 20 MG PO SCH (07:39)
[2017-08-23] MEDS: Insulin LISPRO* 1 UNITS UNIT SUBCUT SCH ×4 (08:44→21:45)
--- NOTE | 2017-08-23 09:00 | PN ---
Subjective Date of Service: 08/23/17 Interval History: Patient complains of RT hand pain, at rest and w/ movement. She was admitted overnight w/ concern re post-phlebitic syndrome, cellulitis, or tenosynovitis RT hand dorsum. Family History: Unchanged from Admission Social History: Unchanged from Admission Past Medical History: Unchanged from Admission Objective Active Medications: Acetaminophen (Tylenol Tab*) 650 mg PO Q6H PRN PRN Reason: FEVER/PAIN Last Admin: 08/23/17 07:39 Dose: 650 mg Albuterol (Ventolin Hfa Inhaler*) 1 puff INH Q6H PRN PRN Reason: SHORTNESS OF BREATH Clozapine (Clozapine Tab*) 300 mg PO BEDTIME MAG Cyclobenzaprine HCl (Flexeril Tab*) 10 mg PO TID PRN PRN Reason: PAIN Docusate Sodium (Colace Cap*) 200 mg PO BID [facility] Last Admin: 08/23/17 07:39 Dose: 200 mg Fluoxetine HCl (Prozac Cap*) 40 mg PO QAM [facility] Last Admin: 08/23/17 07:39 Dose: 40 mg Heparin Sodium (Porcine) (Heparin Vial(*)) 5,000 units SUBCUT Q8HR [facility] Last Admin: 08/23/17 05:24 Dose: 5,000 units Sodium Chloride (Ns 0.9% 1000 Ml*) 1,000 mls @ 75 mls/hr IV PER RATE [facility] Last Admin: 08/23/17 03:04 Dose: 75 mls/hr Vancomycin HCl 1,000 mg/ (Sodium Chloride) 250 mls @ 166.667 mls/hr IVPB Q8H [facility] Last Admin: 08/23/17 05:23 Dose: 166.667 mls/hr Ibuprofen (Motrin Tab*) 400 mg PO Q6H PRN PRN Reason: PAIN Last Admin: 08/23/17 07:38 Dose: 400 mg Insulin Human Lispro (Humalog*) 0 units SUBCUT ACHS [facility] PRN Reason: Protocol Last Admin: 08/23/17 08:44 Dose: Not Given Levothyroxine Sodium (Synthroid Tab*) 88 mcg PO DAILY@0600 [facility] Last Admin: 08/23/17 05:24 Dose: 88 mcg [place] Carbonate ([place] Carbonate Tab*) 900 mg PO QPM [facility] Melatonin (Melatonin (Nf)) 3 mg PO BEDTIME PRN; Protocol PRN Reason: Sleep Omeprazole (Prilosec Cap*) 20 mg PO DAILY@0600 [facility] Last Admin: 08/23/17 05:24 Dose: 20 mg Pharmacy Consult (Vancomycin Per Pharmacy*) 1 note FOLLOW UP .VANC PER PHARMACY [facility] Pharmacy Profile Note (Vancomycin Trough Check) 1 note FOLLOW UP 2030 ONE Stop: 08/23/17 20:31 Sitagliptin Phosphate (Januvia (Nf)) 100 mg PO DAILY [facility] PRN Reason: Protocol Last Admin: 08/23/17 07:38 Dose: 100 mg Temazepam (Restoril Cap*) 15 mg PO BEDTIME MAG Topiramate (Topamax(*)) 100 mg PO BID [facility] Last Admin: 08/23/17 07:39 Dose: 100 mg Tramadol HCl (Ultram*) 50 mg PO Q6H PRN PRN Reason: PAIN Last Admin: 08/23/17 03:04 Dose: 50 mg Vital Signs - 8 hr 08/23/17 08/23/17 08/23/17 02:00 02:21 02:51 Temperature 37.1 C 36.7 C Pulse Rate 73 70 72 Respiratory 18 18 Rate Blood Pressure 118/84 136/68 (mmHg) O2 Sat by Pulse 97 97 100 Oximetry Oxygen Devices in Use Now: None Appearance: sleeping, aroused to light touch Neck: Trachea Midline Respiratory: Clear to Auscultation Cardiovascular: NL Sounds; No Murmurs; No JVD Abdominal: NL Sounds; No Tenderness; No Distention Lymphatic: No Cervical Adenopathy, No Axillary Adenopathy Extremities: - - RT hand w/ diffuse edema, mild erythema, tenderness throughout , refuses any ROM of finger, wrist Neurological: Alert and Oriented x 3 Lines/Tubes/Other Access: Clean, Dry and Intact Peripheral IV Nutrition: Taking PO's Result Diagrams: 08/23/17 05:40 08/23/17 05:40 Assess/Plan/Problems-Billing Assessment: 52 yo woman recently discharged from this hospital, with known superficial phlebitis RT antecube/brachial vein, here w/ RT hand swelling, pain - Patient Problems (1) Phlebitis and thrombophlebitis Current Visit: Yes Status: Acute Priority: High Code(s): I80.9 - PHLEBITIS AND THROMBOPHLEBITIS OF UNSPECIFIED SITE SNOMED Code(s): 478401421 Comment: - differential includes post-phlebitic syndrome, cellulitis, tenosynovitis. - exam favors edema as complication of superficial venous thrombosis - will treat w/ ice to hand, elevation, warm compress to antecube area. (2) Type 2 diabetes mellitus Current Visit: Yes Status: Chronic Priority: Medium Comment: - metformin on hold - finger sticks show adequate control (3) DVT prophylaxis Current Visit: No Status: Acute Priority: Medium Code(s): [id number] - SNOMED Code(s): 870406481 Comment: - Heparin SQ Status and Disposition: Observation today, potential discharge later in day, or tomorrow
[2017-08-23] MEDS: Lithium Carbonate TAB* 300 MG PO SCH (18:35)
[2017-08-23] MEDS ORDERED: Vancomycin Trough Check NOTE FOLLOW UP ONE (20:30)
[2017-08-23] MEDS: CloZAPine TAB* 100 MG TAB PO SCH (21:44)
[2017-08-23] MEDS: Temazepam CAP* 15 MG PO SCH (21:45)
[2017-08-23] MEDS ORDERED: Vancomycin(*) 1,000 MG in NS 0.9% 250 ML* 250 ML IVPB SCH (23:00)
[2017-08-24] MEDS: Levothyroxine TAB* 88 MCG TAB PO SCH (05:13)
[2017-08-24] MEDS: Heparin VIAL(*) 5000 UNITS/ML VIAL (FIVE THOUSAND) SUBCUT SCH ×4 (05:13→21:53)
[2017-08-24] MEDS: Omeprazole CAP* 20 MG PO SCH (05:13)
[2017-08-24] MEDS: Docusate CAP* 100 MG PO SCH ×2 (07:36→21:41)
[2017-08-24] MEDS: Ibuprofen TAB* 400 MG PO PRN ×2 (07:36→14:56)
[2017-08-24] MEDS: Topiramate TAB(*) 100 MG PO SCH ×2 (07:37→21:42)
[2017-08-24] MEDS: FLUoxetine CAP* 20 MG PO SCH (07:37)
[2017-08-24] MEDS: CMCS:SitaGLIPtin (NF) 100 MG TAB PO SCH (07:37)
[2017-08-24] MEDS: Insulin LISPRO* 1 UNITS UNIT SUBCUT SCH ×4 (07:37→21:18)
--- NOTE | 2017-08-24 08:59 | PN ---
Subjective Date of Service: 08/24/17 Interval History: Pt c/o pain and swelling in R hand, slowly improving with help of ice packs Family History: Unchanged from Admission Social History: Unchanged from Admission Past Medical History: Unchanged from Admission Objective Active Medications: Acetaminophen (Tylenol Tab*) 650 mg PO Q6H PRN PRN Reason: FEVER/PAIN Last Admin: 08/23/17 12:45 Dose: 650 mg Albuterol (Ventolin Hfa Inhaler*) 1 puff INH Q6H PRN PRN Reason: SHORTNESS OF BREATH Clozapine (Clozapine Tab*) 300 mg PO BEDTIME [facility] Last Admin: 08/23/17 21:44 Dose: 300 mg Cyclobenzaprine HCl (Flexeril Tab*) 10 mg PO TID PRN PRN Reason: PAIN Last Admin: 08/23/17 10:08 Dose: 10 mg Docusate Sodium (Colace Cap*) 200 mg PO BID [facility] Last Admin: 08/24/17 07:36 Dose: 200 mg Fluoxetine HCl (Prozac Cap*) 40 mg PO QAM [facility] Last Admin: 08/24/17 07:37 Dose: 40 mg Heparin Sodium (Porcine) (Heparin Vial(*)) 5,000 units SUBCUT Q8HR [facility] Last Admin: 08/24/17 05:13 Dose: 5,000 units Ibuprofen (Motrin Tab*) 400 mg PO Q6H PRN PRN Reason: PAIN Last Admin: 08/24/17 07:36 Dose: 400 mg Insulin Human Lispro (Humalog*) 0 units SUBCUT ACHS [facility] PRN Reason: Protocol Last Admin: 08/24/17 07:37 Dose: Not Given Levothyroxine Sodium (Synthroid Tab*) 88 mcg PO DAILY@0600 [facility] Last Admin: 08/24/17 05:13 Dose: 88 mcg [place] Carbonate ([place] Carbonate Tab*) 900 mg PO QPM [facility] Last Admin: 08/23/17 18:35 Dose: 900 mg Melatonin (Melatonin (Nf)) 3 mg PO BEDTIME PRN; Protocol PRN Reason: Sleep Omeprazole (Prilosec Cap*) 20 mg PO DAILY@0600 [facility] Last Admin: 08/24/17 05:13 Dose: 20 mg Sitagliptin Phosphate (Januvia (Nf)) 100 mg PO DAILY [facility] PRN Reason: Protocol Last Admin: 08/24/17 07:37 Dose: 100 mg Temazepam (Restoril Cap*) 15 mg PO BEDTIME [facility] Last Admin: 08/23/17 21:45 Dose: 15 mg Topiramate (Topamax(*)) 100 mg PO BID [facility] Last Admin: 08/24/17 07:37 Dose: 100 mg Tramadol HCl (Ultram*) 50 mg PO Q6H PRN PRN Reason: PAIN Last Admin: 08/23/17 18:35 Dose: 50 mg Trimethoprim/Sulfamethoxazole (Bactrim Ds 800/160 Tab*) 1 tab PO BID [facility] Vital Signs - 8 hr 08/24/17 08/24/17 03:30 07:24 Temperature 97.9 F Pulse Rate 81 Respiratory 21 21 Rate Blood Pressure 134/73 (mmHg) O2 Sat by Pulse 95 Oximetry Oxygen Devices in Use Now: None Appearance: 52 yo F in nnAD, AAOx3, poor historian Eyes: No Scleral Icterus, PERRLA Ears/Nose/Mouth/Throat: NL Teeth, Lips, Gums, Mucous Membranes Moist Neck: NL Appearance and Movements; NL JVP, Trachea Midline Respiratory: Symmetrical Chest Expansion and Respiratory Effort, Clear to Auscultation Cardiovascular: NL Sounds; No Murmurs; No JVD, RRR Abdominal: NL Sounds; No Tenderness; No Distention Lymphatic: No Cervical Adenopathy Extremities: No Clubbing, Cyanosis, - - r ahand edema and tenderness-dorsal hand Skin: No Rash or Ulcers, No Nodules or Sclerosis Neurological: Alert and Oriented x 3, NL Muscle Strength and Tone Result Diagrams: 08/23/17 05:40 08/23/17 05:40 Assess/Plan/Problems-Billing Assessment: 52 yo woman recently discharged from this hospital, with known superficial phlebitis RT antecube/brachial vein, here w/ RT hand swelling, pain - Patient Problems (1) Phlebitis and thrombophlebitis Comment: - differential includes post-phlebitic syndrome, cellulitis, tenosynovitis. - exam favors edema as complication of superficial venous thrombosis - cont to treat w/ ice to hand, elevation. -will d/c Vanc.Start Bactrim and observe one more day (2) Type 2 diabetes mellitus Comment: - metformin on hold - finger sticks show adequate control (3) DVT prophylaxis Comment: - Heparin SQ Status and Disposition: will place on inpatient status. will monitor x one more day
[2017-08-24] MEDS: Sulfamethox/Trimethoprim DS 800/160* TAB PO SCH ×3 (09:34→21:53)
[2017-08-24] MEDS: traMADol TAB* 50 MG PO PRN (09:38)
[2017-08-24] MEDS: Acetaminophen TAB* 325 MG PO PRN ×2 (13:01→21:41)
[2017-08-24] MEDS: Lithium Carbonate TAB* 300 MG PO SCH (17:46)
[2017-08-24] MEDS: Temazepam CAP* 15 MG PO SCH (21:42)
[2017-08-24] MEDS: CloZAPine TAB* 100 MG TAB PO SCH (21:52)
[2017-08-25] MEDS: Heparin VIAL(*) 5000 UNITS/ML VIAL (FIVE THOUSAND) SUBCUT SCH (05:01)
[2017-08-25] MEDS: Omeprazole CAP* 20 MG PO SCH (05:01)
[2017-08-25] MEDS: traMADol TAB* 50 MG PO PRN (05:01)
[2017-08-25] MEDS: Levothyroxine TAB* 88 MCG TAB PO SCH (05:02)
[2017-08-25 07:07] LABS: ABS Basophils 0 10^3/ul (0-0.2); ABS Eosinophils 0.2 10^3/ul (0-0.6); ABS Lymphocytes 0.9 10^3/ul (1.0-4.8); ABS Monocytes 0.5 10^3/ul (0-0.8); ABS Neutrophils 4.5 10^3/ul (1.5-7.7); ABS Nucleated RBC 0 10^3/ul; Eosinophil % 3.6 % (0-6); Hematocrit 35 % (35-47); Lymphocyte % 14.7 % (25-47); Mean Corpuscular HGB Conc 35 g/dl (31-36); Mean Corpuscular Hemoglobin 31 pg (27-31); Mean Corpuscular Volume 88 fL (80-97); Mean Platelet Volume 7.6 um3 (7.4-10.4); Nucleated Red Blood Cells % 0.1; Platelet Count 161 10^3/ul (150-450); Red Blood Count 3.91 10^6/ul (4.0-5.4); Red Cell Distribution Width 15 % (10.5-15); White Blood Count 6.2 10^3/ul (3.5-10.8)
[2017-08-25 07:19] VITALS: BP 125/84
[2017-08-25 07:29] LABS: EGFR Non-African American 43.9 (>60)
[2017-08-25] MEDS: Insulin LISPRO* 1 UNITS UNIT SUBCUT SCH (07:50)
[2017-08-25] MEDS: Docusate CAP* 100 MG PO SCH (08:10)
[2017-08-25] MEDS: Topiramate TAB(*) 100 MG PO SCH (08:10)
[2017-08-25] MEDS: Sulfamethox/Trimethoprim DS 800/160* TAB PO SCH (08:10)
[2017-08-25] MEDS: FLUoxetine CAP* 20 MG PO SCH (08:10)
[2017-08-25] MEDS: CMCS:SitaGLIPtin (NF) 100 MG TAB PO SCH (08:10)
[2017-08-25] MEDS: Ibuprofen TAB* 400 MG PO PRN (08:10)
[2017-08-25] MEDS: Acetaminophen TAB* 325 MG PO PRN (10:55)
--- NOTE | 2017-08-26 07:59 | DS ---
CC: Dr. Bianchi DISCHARGE SUMMARY: DATE OF ADMISSION: 08/23/17 DATE OF DISCHARGE: 08/25/17 PRIMARY CARE PROVIDER: Dr. Bianchi. DISCHARGE DIAGNOSIS: Right arm superficial thrombophlebitis or worsening edema. SECONDARY DIAGNOSES: 1. History of diabetes, type 2, with recent hypoglycemia. 2. History of urinary tract infection, recent, with Escherichia coli. 3. History of schizoaffective disorder. 4. History of pancreatitis. 5. History of intellectual and developmental disability. 6. History of asthma. MEDICATIONS: At discharge are unchanged from admission apart from addition of Bactrim and those include: 1. Albuterol inhaler every 6 hours p.r.n. 2. Clozapine 300 mg at bedtime. 3. Flexeril 10 mg 3 times a day. 4. Colace 100 mg b.i.d. 5. Prozac 40 mg q.a.m. 6. Flonase nasal spray, 2 sprays both nostrils daily. 7. Ibuprofen 400 mg every 6 hours p.r.n. 8. Levothyroxine 88 mcg daily. 9. [place] 900 mg q.p.m. 10. Metformin 1000 mg b.i.d. 11. Januvia 100 mg daily. 12. Bactrim DS 1 tablet p.o. b.i.d. for 5 days total, then stop. 13. Restoril 15 mg at bedtime. 14. Topamax 100 mg b.i.d. 15. Tramadol 50 mg daily p.r.n. 16. Multivitamin daily. LABORATORY DATA AND STUDIES PERFORMED DURING THE HOSPITAL STAY: Included: On 08/25/17, white blood cell count of 6.2, hemoglobin 12.0, hematocrit 35, and platelets of 161. Sodium was 140, potassium 3.8, chloride 116, carbon dioxide 20, BUN 19, creatinine 1.27. C-reactive protein at discharge was 13.5, down from 30 at admission. Microbiology tests show negative blood cultures obtained on 08/22/17. Venous Doppler studies obtained on 08/22/17, impression: "No current evidence of DVT. Superficial thrombophlebitis with thrombus within the cephalic and basilic veins." HOSPITALIZATION COURSE: Erin Urban is a 52-year-old female who was discharged from our hospital on 08/20/17 with what, at that point, was suspected to be right upper extremity DVT as well as hypoglycemia and altered mental status that resolved. At that point, her insulin was discontinued. It appeared to be that she could have been "overtreated." She also was diagnosed with E. coli UTI. Due to her history of frequent falls and allergy to ASPIRIN, she was discharged with recommendations of conservative treatment of her right extremity DVT that was likely related to IV access being placed prior to discharge at that point. Two days later, the patient presented to the hospital complaining of worsening edema of the right upper extremity. There was a question of septic thrombophlebitis as well as extension of the phlebitis. She was placed briefly on IV antibiotics. Having said that, her repeat venous Doppler study does not show evidence of any DVT, but evidence only of superficial phlebitis within the cephalic and basilic veins. The patient was transiently on IV antibiotics, but appeared not to have cellulitis or septic phlebitis. Nevertheless, just to ensure that the patient's right upper extremity does not get infected, she is going to be continued on Bactrim for another 5 days after discharge. Please note that at the time of discharge, the patient's creatinine mildly increased to 1.27, which is consistent with the previous increase of creatinine by Bactrim and not by acute kidney injury. The patient was reassured and asked to have her right hand elevated often as soon as possible and continue with ice packs. Due to history of frequent falls, she requested a cane or walker to be prescribed and a case aide is going to follow with that. She is recommended to follow up with her primary care provider in 4 to 7 days. PHYSICAL EXAMINATION: At the time of discharge, blood pressure of 125/84, heart rate of 73 and regular, respiratory rate 18, oxygen saturation 97% on room air, temperature 97.9. General: The patient is a pleasant 52-year-old female, who is in no acute distress. Alert, awake, and oriented x2. Very poor historian. HEENT: Head atraumatic, normocephalic. Eyes: Pupils are equal, reactive to light and accommodation. Oropharynx clear. Mucosa moist. Neck: Supple. No JVD, no bruits bilaterally. Cardiovascular: Regular rate and rhythm with no murmur. Respiratory: Clear to auscultation bilaterally. Abdomen : Soft, nontender. Bowel sounds are present in all 4 quadrants. Extremities: There is right hand edema with some tenderness to palpation. There is no evidence of cellulitis, but the patient does have hemosiderin deposition right above her right wrist, tracking down to the area of her wrist. Although the patient complains of pain with movement of her right wrist, there is no limitation of the range of motion. There is no change of joint effusion on evaluation. Peripheral pulses are +2 bilaterally. Please note that this is a short summary of the patient's hospitalization. Please refer to further medical records for details. TIME SPENT: Approximately 40 minutes was spent on the patient's discharge. [id number]/[facility] #: [id number] MTDD
== END 2017-08-25 11:40 | disposition home or self-care (01) | DRG 315 ==
LOC: ED 19:44 → OBSVTOIN 08-23 00:27 → SSU 08-23 00:27
PROVIDERS: ADMIT Hospitalist; ATTEND Internal Medicine
DX: T80.1XXA Vascular complications following infusion, transfusion and therapeutic injection, initial encounter (principal); Z68.41 Body mass index [BMI] 40.0-44.9, adult; I80.8 Phlebitis and thrombophlebitis of other sites; E11.9 Type 2 diabetes mellitus without complications; F25.9 Schizoaffective disorder, unspecified; F79 Unspecified intellectual disabilities; J45.909 Unspecified asthma, uncomplicated; E66.01 Morbid (severe) obesity due to excess calories; E03.9 Hypothyroidism, unspecified; Z87.19 Personal history of other diseases of the digestive system; Z79.84 Long term (current) use of oral hypoglycemic drugs; Z79.1 Long term (current) use of non-steroidal anti-inflammatories (NSAID); Z79.4 Long term (current) use of insulin; Z79.899 Other long term (current) drug therapy; Z88.6 Allergy status to analgesic agent; Z88.1 Allergy status to other antibiotic agents; Z88.8 Allergy status to other drugs, medicaments and biological substances; Z91.018 Allergy to other foods
CPT/HCPCS: 36415; 80048; 80053; 80178; 80202; 81003; 83605; 85025; 85027; 85610; 85730; 86140; 87040; 96365; 99213; 99285; A9270-GY; G0463; J1644; J3370

== ENCOUNTER 2017-10-12 17:48 | Inpatient (IN) | payer MEDICARE, MEDICAID ==
[2017-10-12 18:24] LABS: ABS Basophils 0.1 10^3/ul (0-0.2); ABS Eosinophils 0.2 10^3/ul (0-0.6); ABS Lymphocytes 1.6 10^3/ul (1.0-4.8); ABS Monocytes 0.6 10^3/ul (0-0.8); ABS Neutrophils 7.2 10^3/ul (1.5-7.7); ABS Nucleated RBC 0 10^3/ul; Hematocrit 37 % (35-47); Hemoglobin 12.9 g/dl (12.0-16.0); Lymphocyte % 16.7 % (25-47); Mean Corpuscular HGB Conc 35 g/dl (31-36); Mean Corpuscular Hemoglobin 30 pg (27-31); Mean Corpuscular Volume 87 fL (80-97); Mean Platelet Volume 7.6 um3 (7.4-10.4); Nucleated Red Blood Cells % 0.1; Platelet Count 181 10^3/ul (150-450); Red Blood Count 4.29 10^6/ul (4.00-5.40); Red Cell Distribution Width 15 % (10.5-15); White Blood Count 9.6 10^3/ul (3.5-10.8)
--- NOTE | 2017-10-12 18:49 | ED ---
Psychiatric Complaint - HPI Summary HPI Summary: This is scribe Radha Kaba documenting for attending Maikel Eckert M.D. Pt is a 52 y/o F BIBA who presents to [facility] c/o schizophrenic problems. She stopped taking her medications 1 week ago because she thought she was better. Since ceasing, she has heard voices telling her to climb a tall tree and jump off, and is starting to believe it. She began taking her medications again 3-4 days ago. Pt has been admitted for mental health before, and wants to be admitted again, stating shes not safe at home because she will jump. Pt states she has been lying in bed depressed, has headaches, and has been losing weight. She denies any CP, abdominal pain, difficulty urinating, rash, wounds, or sore throat. She has DM, and has not been taking her insulin properly lately. Pt denies any smoking, drugs, or alcohol. - History Of Current Complaint Chief Complaint: EDMentalHealth Time Seen by Provider: 10/12/17 18:07 Hx Obtained From: Patient Hx Last Menstrual Period: april 29 Onset/Duration: Gradual Onset, Lasting Days - 1 week, Still Present Timing: Constant Character: Depressed Aggravating Factor(s): Medication Non-compliance Alleviating Factor(s): Nothing Associated Signs And Symptoms: Positive: Hallucinating Related History: Positive For: Prior Psychiatric Issues Has Suicidal: Reports: Thoughts Has Homicidal: Denies: Thoughts - Allergies/Home Medications Allergies/Adverse Reactions: Allergies Allergy/AdvReac Type Severity Reaction Status Date / Time aspirin Allergy Unknown Verified 08/22/17 17:56 Reaction Details Cephalosporins Allergy Rash Verified 08/22/17 17:56 amoxicillin AdvReac Nausea And Verified 08/22/17 17:56 Vomiting Tetracyclines AdvReac Nausea And Verified 08/22/17 17:56 Vomiting Oranges Allergy Swelling Uncoded 08/22/17 17:56 PMH/Surg Hx/FS Hx/Imm Hx Endocrine/Hematology History: Reports: Hx Diabetes, Hx Thyroid Disease Denies: Hx Anticoagulant Therapy Cardiovascular History: Reports: Hx Deep Vein Thrombosis, Hx Hypercholesterolemia Denies: Hx Congestive Heart Failure, Hx Hypertension, Hx Myocardial Infarction, Hx Pacemaker/ICD Respiratory History: Reports: Hx Asthma Denies: Hx Chronic Obstructive Pulmonary Disease (COPD), Hx Lung Cancer, Hx Pneumonia, Hx Pulmonary Embolism GI History: Reports: Hx Ulcer History: Denies: Hx Dialysis, Hx Renal Disease Sensory History: Denies: Hx Contacts or Glasses, Hx Hearing Aid Opthamlomology History: Denies: Hx Contacts or Glasses Neurological History: Denies: Hx Dementia, Hx Migraine, Hx Seizures, Hx Transient Ischemic Attacks (TIA) Psychiatric History: Reports: Hx Inpatient Treatment, Hx Community Mental Health Tx, Hx Schizophrenia Denies: Hx Anxiety, Hx Eating Disorder, Hx Depression, Hx Bipolar Disorder, Hx of Violent Episodes Against Others - Cancer History Hx Chemotherapy: No Hx Radiation Therapy: No - Surgical History Surgery Procedure, Year, and Place: tubal ligation Infectious Disease History: No Infectious Disease History: Denies: Hx Hepatitis, Hx Human Immunodeficiency Virus (HIV), Traveled Outside the [place] in Last 30 Days - Family History Known Family History: Positive: Cardiac Disease, Hypertension, Diabetes - Social History Alcohol Use: None Hx Substance Use: No Substance Use Type: Reports: None Hx Tobacco Use: No Smoking Status (MU): Never Smoked Tobacco Amount Used/How Often: states that she smoked one cigarette when she was 16 yrs. old Have You Smoked in the Last Year: No Review of Systems Positive: Other - Weight loss Negative: Sore Throat Negative: Chest Pain Negative: Abdominal Pain Positive: no symptoms reported Negative: Rash Positive: Headache Positive: Depressed, Other - Auditory hallucinations, SI All Other Systems Reviewed And Are Negative: Yes Physical Exam - Summary Physical Exam Summary: Appearance: Obese, no pain distress Skin: warm, dry, reflects adequate perfusion Head/face: normal Eyes: EOMI, DEV ENT: normal Neck: supple, non-tender Respiratory: CTA, breath sounds present Cardiovascular: RRR, pulses symmetrical Abdomen: non-tender, soft Bowel Sounds: present Musculoskeletal: normal, strength/ROM intact Neuro: normal, sensory motor intact, A&Ox3 Psych: Flat affect, auditory hallucinations, SI. Triage Information Reviewed: Yes Vital Signs On Initial Exam: Initial Vitals Temp Pulse Resp BP Pulse Ox 97.9 F 87 20 157/99 98 10/12/17 18:01 10/12/17 18:01 10/12/17 18:01 10/12/17 18:01 10/12/17 18:01 Vital Signs Reviewed: Yes Diagnostics - Vital Signs Vital Signs Temp Pulse Resp BP Pulse Ox 10/12/17 18:01 97.9 F 87 20 157/99 98 - Laboratory Lab Results: Lab Results 10/12/17 Range/Units 18:17 WBC 9.6 (3.5-10.8) 10^3/ul RBC 4.29 (4.00-5.40) 10^6/ul Hgb 12.9 (12.0-16.0) g/dl Hct 37 (35-47) % MCV 87 (80-97) fL MCH 30 (27-31) pg MCHC 35 (31-36) g/dl RDW 15 (10.5-15) % Plt Count 181 (150-450) 10^3/ul MPV 7.6 (7.4-10.4) um3 Neut % (Auto) 74.7 (38-83) % Lymph % (Auto) 16.7 L (25-47) % [place] % (Auto) 5.9 (0-7) % Eos % (Auto) 2.0 (0-6) % Baso % (Auto) 0.7 (0-2) % Absolute Neuts (auto) 7.2 (1.5-7.7) 10^3/ul Absolute Lymphs (auto) 1.6 (1.0-4.8) 10^3/ul Absolute Monos (auto) 0.6 (0-0.8) 10^3/ul Absolute Eos (auto) 0.2 (0-0.6) 10^3/ul Absolute Basos (auto) 0.1 (0-0.2) 10^3/ul Absolute Nucleated RBC 0 10^3/ul Nucleated RBC % 0.1 Result Diagrams: 10/12/17 18:17 10/12/17 18:17 Lab Statement: Any lab studies that have been ordered have been reviewed, and results considered in the medical decision making process. - EKG 18:26 Cardiac Rate: NL - 87 bpm EKG Rhythm: Sinus Rhythm ST Segment: Non-Specific EKG Interpretation: Normal axis. Course/Dx - Course Course Of Treatment: Patient is noncompliant allegedly with her medications and has been feeling suicidal. She is experiencing increased voices per report. She is well-known to the mental health system. She is pending mental health evaluation and clearance. - Differential Dx/Clinical Impression Provider Diagnosis: Schizophrenia, Non compliance w medication regimen Discharge - Sign-Out/Discharge Documenting (check all that apply): Sign-Out Patient Signing out patient TO: Jose Husain - Discharge Plan Condition: Stable Referrals: Jason Bianchi MD [Primary Care Provider] - - Billing Disposition and Condition Condition: STABLE
[2017-10-12 19:03] LABS: EGFR Non-African American 44.3 (>60)
[2017-10-13] MEDS ORDERED: hydrOXYzine HCL TAB* 50 MG PO ONE (02:39)
--- NOTE | 2017-10-13 05:29 | ED ---
Progress - Progress Note Progress Note: This is scribe Bobby Wilkins documenting for attending physician Jose Husain M.D. [id number]: Informed [facility] wants to admit Pt to [facility]. Dr. Husain agrees with this plan. - Consult/PCP Time Called: 19:01 Course/Dx - Course Course Of Treatment: Patient is noncompliant allegedly with her medications and has been feeling suicidal. She is experiencing increased voices per report. She is well-known to the mental health system. She is pending mental health evaluation and clearance. - Diagnoses Provider Diagnoses: Schizophrenia, Non compliance w medication regimen Discharge - Sign-Out/Discharge Documenting (check all that apply): Patient Departure - Discharge Plan Condition: Stable Disposition: PSYCHIATRIC FACILITY-[facility] - Billing Disposition and Condition Condition: STABLE Disposition: Psychiatric Facility [facility]
[2017-10-13] MEDS ORDERED: Nicotine GUM* 2 MG PO PRN (07:01)
[2017-10-13] MEDS ORDERED: Albuterol HFA INHALER* 8 gm MDI INH PRN (07:33)
[2017-10-13] MEDS: Topiramate TAB(*) 100 MG PO SCH ×2 (08:56→20:07)
[2017-10-13] MEDS: Levothyroxine TAB* 88 MCG TAB PO SCH (08:56)
[2017-10-13] MEDS: metFORMIN* 1,000 MG TAB PO SCH ×2 (08:56→20:07)
[2017-10-13] MEDS: Docusate CAP* 100 MG PO SCH ×2 (08:56→20:07)
[2017-10-13] MEDS: Fluticasone NASAL SPRAY 50MCG* 16 gm SPRAY BTL BOTH NARES SCH (08:57)
[2017-10-13] MEDS: CMC:SitaGLIPtin (NF) 100 MG TAB PO SCH (08:57)
[2017-10-13] MEDS: Vitamin THERAPEUTIC TAB PO SCH (08:57)
[2017-10-13] MEDS: Ibuprofen TAB* 400 MG PO PRN (12:48)
[2017-10-13] MEDS ORDERED: Insulin GLARGINE(*) 1 UNITS UNIT SUBCUT SCH (14:00)
--- NOTE | 2017-10-13 14:44 | PN ---
MHU: Group Therapy Note - Service Type Service Type: [id number] Group Psychotherapy - Cognitive Behavioral Group Therapy ( CBT):Patient was attentive and participatory in CBT programming this morning, and remained in good behavioral control. Patient expressed positive insights regarding relevant treatment interventions and goals.
[2017-10-13] MEDS: Temazepam CAP* 15 MG PO SCH (20:07)
[2017-10-13] MEDS: CloZAPine TAB* 100 MG TAB PO SCH (20:07)
[2017-10-13] MEDS: Atorvastatin* 20 MG TAB PO SCH (20:08)
[2017-10-13] MEDS: Insulin GLARGINE(*) 1 UNITS UNIT SUBCUT SCH (20:26)
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
[2017-10-14] MEDS: Fluticasone NASAL SPRAY 50MCG* 16 gm SPRAY BTL BOTH NARES SCH (08:40)
[2017-10-14] MEDS: Topiramate TAB(*) 100 MG PO SCH ×2 (08:41→20:21)
[2017-10-14] MEDS: metFORMIN* 1,000 MG TAB PO SCH ×2 (08:41→20:21)
[2017-10-14] MEDS: Docusate CAP* 100 MG PO SCH ×2 (08:41→20:21)
[2017-10-14] MEDS: CMC:SitaGLIPtin (NF) 100 MG TAB PO SCH (08:42)
[2017-10-14] MEDS: Levothyroxine TAB* 88 MCG TAB PO SCH (08:42)
[2017-10-14] MEDS: Ibuprofen TAB* 400 MG PO PRN (08:42)
[2017-10-14] MEDS: Vitamin THERAPEUTIC TAB PO SCH (08:42)
[2017-10-14] MEDS ORDERED: Pneumococcal *Vac Polyvalent 0.5 ML VIAL IM ONE (09:00)
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
[2017-10-14] MEDS: Al Hydrox/Mg Hydrox/Simet LIQ* 30 ML UDC PO PRN (16:18)
[2017-10-14] MEDS: Ondansetron TAB* 4 MG PO PRN (18:58)
[2017-10-14] MEDS: Atorvastatin* 20 MG TAB PO SCH (20:21)
[2017-10-14] MEDS: Temazepam CAP* 15 MG PO SCH (20:21)
[2017-10-14] MEDS: CloZAPine TAB* 100 MG TAB PO SCH (20:21)
[2017-10-14] MEDS: Insulin GLARGINE(*) 1 UNITS UNIT SUBCUT SCH (20:42)
[2017-10-15] MEDS: Al Hydrox/Mg Hydrox/Simet LIQ* 30 ML UDC PO PRN (04:20)
[2017-10-15] MEDS: Ondansetron TAB* 4 MG PO PRN (04:20)
[2017-10-15] MEDS: Levothyroxine TAB* 88 MCG TAB PO SCH (07:50)
[2017-10-15] MEDS: metFORMIN* 1,000 MG TAB PO SCH ×2 (09:17→21:26)
[2017-10-15] MEDS: Vitamin THERAPEUTIC TAB PO SCH (09:17)
[2017-10-15] MEDS: CMC:SitaGLIPtin (NF) 100 MG TAB PO SCH (09:17)
[2017-10-15] MEDS: Topiramate TAB(*) 100 MG PO SCH ×2 (09:17→21:02)
[2017-10-15] MEDS: Docusate CAP* 100 MG PO SCH ×2 (09:17→21:02)
[2017-10-15] MEDS: Fluticasone NASAL SPRAY 50MCG* 16 gm SPRAY BTL BOTH NARES SCH (09:18)
[2017-10-15] MEDS ORDERED: Magnesium CITRATE* 300 ML BTL PO ONE (11:07)
--- NOTE | 2017-10-15 11:35 | PN ---
MHU: Group Therapy Note - Service Type Service Type: 60062 Group Psychotherapy - Cognitive Behavioral Group Therapy ( CBT):Patient attended CBT programming this morning and presented with flat affect that did not vary with discussion. Although responsive to direct prompts to respond to questions, patient did not engage in spontaneous conversation.
--- NOTE | 2017-10-15 14:23 | PN ---
Subjective - Subjective Date of Service: 10/15/17 Service Type: 12418 Hosp care 15 min low complexity Subjective: Erin seems a bit irritable today. She didn't like the lunch that she got and was a bit petulant. She then went to bed only to be woken by command auditory hallucinations telling her to climb a tree and jump out of it. She stated she was trying to ignore it, but she wasn't having much luck. She stated she had only stopped taking her medication for a week and resumed it a week ago. Before she stopped the medication, she states she was symptom free and felt like she didn't need meds anymore. Objective - Appearance Appearance: Obese Dysmorphic Features: No Hygiene: Mal-odorous Grooming: Disheveled - Behavior Psychomotor Activities: Normal Exhibits Abnormal Movement: No - Attitude and Relatedness Attitude and Relatedness: Needy Eye Contact: Fair - Speech Quality: Unpressured Latencies: Short Quantity: Appropriate - Mood Patient's Decription of Mood: "Okay" - Affect Observed Affect: Constricted Affect Consistent with: Dysphoria - Thought Process Patient's Thought Process: Coherent, Circumstantial Thought Content: Yes Suicidal Planning, No Passive Wish, No Homicidal Ideation, No Paranoid Ideation - Sensorium Experiencing Hallucinations: Yes Type of Hallucinations: Visual: No, Auditory: Yes, Command: Yes - Level of Consciousness Level of Consciousness: Alert Orientation: Yes Intact, Yes Orientated to Time, Yes Orientated to Place, Yes Orientated to Person - Impulse Control Impulse Control: Impaired - Insight and Judgement Insight and Judgement: Impaired - Group Participation Particating in Group Activities: Yes - Medication Management Medication Management Adherence: Yes - Additional Observations Comments: Erin is sleepy right now. She is adherent to medication recommendations. She was free from auditory hallucinations a few weeks ago, but these have recurred in the context of her discontinuing her own medications. Assessment - Assessment Merits Inpatient Hospitalization: For Immediate Safety Inpatient DSM-V Dx: F25.0 Clinical Impression: Erin has done well in the past on the medication regimen she has been on. Because she recently stopped her medication, feeling like she didn't need it, a restart of meds and the continuing monitoring of her safety is necessary. She is irritable today and working hard to deal with her auditory hallucinations. She does not seem to have a lot of internal resources for dealing with this problem. Plan - Plan Treatment Plan: Name: ERIN MILAN Birthdate: 1965 [id number] Continued Medication Management: Continue Outpt Medication Medications: Current Medications Al Hydrox/Mg Hydrox/Simethicone (Maalox Plus*) 30 ml PO Q4H PRN PRN Reason: INDIGESTION Last Admin: 10/15/17 04:20 Dose: 30 ml Albuterol (Ventolin Hfa Inhaler*) 1 puff INH Q6H PRN PRN Reason: SHORTNESS OF BREATH Atorvastatin Calcium (Lipitor*) 20 mg PO BEDTIME [facility] Last Admin: 10/14/17 20:21 Dose: 20 mg Clozapine (Clozapine Tab*) 300 mg PO BEDTIME [facility] Last Admin: 10/14/17 20:21 Dose: 300 mg Docusate Sodium (Colace Cap*) 100 mg PO BID [facility] Last Admin: 10/15/17 09:17 Dose: 100 mg Fluticasone Propionate (Flonase Nasal [place] 50mcg*) 2 spray BOTH NARES DAILY [facility] Last Admin: 10/15/17 09:18 Dose: 2 spray Ibuprofen (Motrin Tab*) 400 mg PO Q6H PRN PRN Reason: PAIN Last Admin: 10/14/17 08:42 Dose: 400 mg Insulin Glargine (Lantus(*)) 20 units SUBCUT DAILY@2100 [facility] Last Admin: 10/14/17 20:42 Dose: 20 units Levothyroxine Sodium (Synthroid Tab*) 88 mcg PO DAILY@0600 [facility] Last Admin: 10/15/17 07:50 Dose: 88 mcg Metformin HCl (Glucophage*) 1,000 mg PO BID [facility] Last Admin: 10/15/17 09:17 Dose: 1,000 mg Multivitamins (Theragran Tab*) 1 tab PO DAILY [facility] Last Admin: 10/15/17 09:17 Dose: 1 tab Nicotine Polacrilex (Nicotine Gum*) 2 mg PO Q2H PRN PRN Reason: CRAVING Ondansetron HCl (Zofran Tab*) 4 mg PO Q8H PRN PRN Reason: INDIGESTION Last Admin: 10/15/17 04:20 Dose: 4 mg Sitagliptin Phosphate (Januvia (Nf)) 100 mg PO DAILY [facility] Last Admin: 10/15/17 09:17 Dose: 100 mg Temazepam (Restoril Cap*) 15 mg PO BEDTIME [facility] Last Admin: 10/14/17 20:21 Dose: 15 mg Topiramate (Topamax(*)) 100 mg PO BID [facility] Last Admin: 10/15/17 09:17 Dose: 100 mg - Discharge Plan Additional Comments: Continue treating with outpatient medications. Follow up with blood tests for HA1c and lipids. Potentially a consult for diabetes and hypothyroid. Continue treatment with previous outpatient medications. Consider higher dose of clozapine or temporary antipsychotic polypharmacy to reduce the hallucinations.
--- NOTE | 2017-10-15 16:10 | PN ---
MHU: Group Therapy Note - Service Type Service Type: [id number] Group Psychotherapy - Group Participation Patient Participating in Group: Yes Level of Group Participation: Attentive Relatedness to Group: Well Related - Appearance Appearance: Obese Hygiene: Normal Grooming: Fairly Well Kept - Behavior Psychomotor Activities: Normal Exhibits Abnormal Movement: No - Attitude and Relatedness Attitude and Relatedness: Cooperative Eye Contact: Good - Speech Quality: Unpressured Latencies: Normal Quantity: Appropriate - Mood Patient's Decription of Mood: "Okay" - Affect Observed Affect: Tense Affect Consistent with: Dysphoria - Thought Process Patient's Thought Process: Coherent Thought Content: Yes Suicidal Planning, No Passive Wish, No Homicidal Ideation, No Paranoid Ideation - Sensorium Experiencing Hallucinations: Yes Type of Hallucinations: Visual: No, Auditory: Yes, Command: Yes - Level of Consciousness Level of Consciousness: Alert Orientation: Yes Intact, Yes Orientated to Time, Yes Orientated to Place, Yes Orientated to Person - Impulse Control Impulse Control: Intact - Insight and Judgement Insight and Judgement: Fair - Additional Group Comments Group Comments: Erin participated responsibly and appropriately. She showed interest and related well to others. Her comments were on target and appropriate.
[2017-10-15] MEDS: Atorvastatin* 20 MG TAB PO SCH (21:01)
[2017-10-15] MEDS: CloZAPine TAB* 100 MG TAB PO SCH (21:01)
[2017-10-15] MEDS: Temazepam CAP* 15 MG PO SCH (21:02)
[2017-10-15] MEDS: Insulin GLARGINE(*) 1 UNITS UNIT SUBCUT SCH (21:26)
[2017-10-16] MEDS: Levothyroxine TAB* 88 MCG TAB PO SCH (07:52)
[2017-10-16] MEDS: metFORMIN* 1,000 MG TAB PO SCH ×2 (08:25→20:17)
[2017-10-16] MEDS: Topiramate TAB(*) 100 MG PO SCH ×2 (08:25→20:16)
[2017-10-16] MEDS: Docusate CAP* 100 MG PO SCH ×2 (08:25→20:16)
[2017-10-16] MEDS: Fluticasone NASAL SPRAY 50MCG* 16 gm SPRAY BTL BOTH NARES SCH (08:25)
[2017-10-16] MEDS: Vitamin THERAPEUTIC TAB PO SCH (08:25)
[2017-10-16] MEDS: CMC:SitaGLIPtin (NF) 100 MG TAB PO SCH (08:25)
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
[2017-10-16] MEDS: Insulin GLARGINE(*) 1 UNITS UNIT SUBCUT SCH (20:14)
[2017-10-16] MEDS: CloZAPine TAB* 100 MG TAB PO SCH (20:16)
[2017-10-16] MEDS: Atorvastatin* 20 MG TAB PO SCH (20:17)
[2017-10-16] MEDS: Temazepam CAP* 15 MG PO SCH (20:17)
[2017-10-17] MEDS: Levothyroxine TAB* 88 MCG TAB PO SCH (07:31)
[2017-10-17] MEDS: CMC:SitaGLIPtin (NF) 100 MG TAB PO SCH (09:33)
[2017-10-17] MEDS: Vitamin THERAPEUTIC TAB PO SCH (09:33)
[2017-10-17] MEDS: Docusate CAP* 100 MG PO SCH ×2 (09:33→20:32)
[2017-10-17] MEDS: metFORMIN* 1,000 MG TAB PO SCH ×2 (09:34→20:31)
[2017-10-17] MEDS: Topiramate TAB(*) 100 MG PO SCH ×2 (09:34→20:32)
[2017-10-17] MEDS: Fluticasone NASAL SPRAY 50MCG* 16 gm SPRAY BTL BOTH NARES SCH (09:35)
[2017-10-17 13:04] LABS: Urine Appearance Cloudy; Urine Blood 1+ (Negative); Urine Color Yellow; Urine Ketones Negative (Negative); Urine Protein 1+(30 mg/dL) (Negative); Urine Red Blood Cell 3+(>10/hpf) (Absent); Urine Specific Gravity 1.009 (1.010-1.030); Urine Urobilinogen Negative (Negative); Urine White Blood Cell 3+(>20/hpf) (Absent)
[2017-10-17] MEDS: Ibuprofen TAB* 400 MG PO PRN (16:11)
[2017-10-17] MEDS: Fluconazole 100 MG TAB* TAB PO SCH (18:28)
[2017-10-17] MEDS: Magnesium Hydroxide LIQ* 30 ML UDC PO PRN (18:31)
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
[2017-10-17] MEDS: Nystatin TOP POWDER* 15 GM BTL TOPICAL SCH (20:30)
[2017-10-17] MEDS: Insulin GLARGINE(*) 1 UNITS UNIT SUBCUT SCH (20:31)
[2017-10-17] MEDS: Polyethylene Glycol 3350* 17 GM PACKET PO SCH (20:31)
[2017-10-17] MEDS: CloZAPine TAB* 100 MG TAB PO SCH (20:32)
[2017-10-17] MEDS: Nitrofurantoin Macrocrystals* 50 MG CAP PO SCH (20:32)
[2017-10-17] MEDS: Temazepam CAP* 15 MG PO SCH (20:32)
[2017-10-17] MEDS: Atorvastatin* 20 MG TAB PO SCH (20:32)
[2017-10-18] MEDS: Ibuprofen TAB* 400 MG PO PRN (05:49)
[2017-10-18] MEDS: Levothyroxine TAB* 88 MCG TAB PO SCH (07:51)
[2017-10-18] MEDS: Polyethylene Glycol 3350* 17 GM PACKET PO SCH ×2 (09:34→21:39)
[2017-10-18] MEDS: CMC:SitaGLIPtin (NF) 100 MG TAB PO SCH (09:34)
[2017-10-18] MEDS: Vitamin THERAPEUTIC TAB PO SCH (09:34)
[2017-10-18] MEDS: Docusate CAP* 100 MG PO SCH ×2 (09:34→21:35)
[2017-10-18] MEDS: Nitrofurantoin Macrocrystals* 50 MG CAP PO SCH ×2 (09:35→21:36)
[2017-10-18] MEDS: Topiramate TAB(*) 100 MG PO SCH ×2 (09:35→21:37)
[2017-10-18] MEDS: metFORMIN* 1,000 MG TAB PO SCH ×2 (09:35→21:36)
[2017-10-18] MEDS: Fluticasone NASAL SPRAY 50MCG* 16 gm SPRAY BTL BOTH NARES SCH (09:36)
[2017-10-18] MEDS: Nystatin TOP POWDER* 15 GM BTL TOPICAL SCH ×2 (09:45→21:40)
[2017-10-18] MEDS: Magnesium Hydroxide LIQ* 30 ML UDC PO PRN (14:42)
[2017-10-18] MEDS ORDERED: Sodium Phosphate ADULT ENEMA* 118 ml bottle PR ONE (15:30)
--- NOTE | 2017-10-18 18:11 | PN ---
Subjective - Subjective Date of Service: 10/18/17 Service Type: [id number] Hosp care 15 min low complexity Subjective: Erin continues to hear command auditory hallucinations of a male voice telling her to jump off a tree, but she says she wouldn't do so as she knows the voices are wrong. Reports that she didn't have a bowel movement since Mon. and her abdomen is tight and tender. Fleet Enema given with good result and Nursing staffs were requested to check on her bowel movements on daily basis. Her bowel regimen need to be looked at by hospitalist. Objective - Appearance Appearance: Healthy Appearing, Obese Dysmorphic Features: No Hygiene: Normal Grooming: Fairly Well Kept - Behavior Psychomotor Activities: Normal Exhibits Abnormal Movement: No - Attitude and Relatedness Attitude and Relatedness: Appropriate Eye Contact: Fair - Speech Quality: Unpressured Latencies: Normal Quantity: Appropriate - Mood Patient's Decription of Mood: "Anxious" - Affect Observed Affect: Non-labile Affect Consistent with: Dysphoria - Thought Process Patient's Thought Process: Coherent, Goal Directed Thought Content: No Passive Wish, No Suicidal Planning, No Homicidal Ideation, No Paranoid Ideation - Sensorium Type of Hallucinations: Visual: No, Auditory: Yes, Command: Yes - Level of Consciousness Level of Consciousness: Alert Orientation: Yes Intact, Yes Orientated to Time, Yes Orientated to Place, Yes Orientated to Person - Impulse Control Impulse Control: Intact - Insight and Judgement Insight and Judgement: Fair - Group Participation Particating in Group Activities: No - Medication Management Medication Management Adherence: Yes Assessment - Assessment Merits Inpatient Hospitalization: For Immediate Safety, For Stabilization, For Discharge Planning Inpatient DSM-V Dx: F25.0 Clinical Impression: Still symptomatic and not ready for discharge. Plan - Plan Treatment Plan: Name: ERIN MILAN Birthdate: 1965 [id number] Continued Medication Management: Continue Outpt Medication Medications: Current Medications Al Hydrox/Mg Hydrox/Simethicone (Maalox Plus*) 30 ml PO Q4H PRN PRN Reason: INDIGESTION Last Admin: 10/15/17 04:20 Dose: 30 ml Albuterol (Ventolin Hfa Inhaler*) 1 puff INH Q6H PRN PRN Reason: SHORTNESS OF BREATH Atorvastatin Calcium (Lipitor*) 20 mg PO BEDTIME [facility] Last Admin: 10/17/17 20:32 Dose: 20 mg Clozapine (Clozapine Tab*) 300 mg PO BEDTIME [facility] Last Admin: 10/17/17 20:32 Dose: 300 mg Docusate Sodium (Colace Cap*) 100 mg PO BID [facility] [place] Last Admin: 10/18/17 09:34 Dose: 100 mg Fluconazole (Diflucan 100 Mg Tab*) 150 mg PO Q72H [facility] Stop: 10/23/17 18:01 Last Admin: 10/17/17 18:28 Dose: 150 mg Fluticasone Propionate (Flonase Nasal [place] 50mcg*) 2 spray BOTH NARES DAILY [facility] [place] Last Admin: 10/18/17 09:36 Dose: 2 spray Ibuprofen (Motrin Tab*) 400 mg PO Q6H PRN PRN Reason: PAIN Last Admin: 10/18/17 05:49 Dose: 400 mg Insulin Glargine (Lantus(*)) 20 units SUBCUT DAILY@2100 [facility] [place] Last Admin: 10/17/17 20:31 Dose: 20 units Levothyroxine Sodium (Synthroid Tab*) 88 mcg PO DAILY@0600 [facility] Last Admin: 10/18/17 07:51 Dose: 88 mcg Magnesium Hydroxide (Milk Of Magnesia Liq*) 30 ml PO Q6H PRN PRN Reason: CONSTIPATION Last Admin: 10/18/17 14:42 Dose: 30 ml Metformin HCl (Glucophage*) 1,000 mg PO BID [facility] Last Admin: 10/18/17 09:35 Dose: 1,000 mg Multivitamins (Theragran Tab*) 1 tab PO DAILY [facility] [place] Last Admin: 10/18/17 09:34 Dose: 1 tab Nicotine Polacrilex (Nicotine Gum*) 2 mg PO Q2H PRN PRN Reason: CRAVING Nitrofurantoin Macrocrystals (Macrodantin*) 50 mg PO BID [facility] [place] Stop: 10/22/17 23:59 Last Admin: 10/18/17 09:35 Dose: 50 mg Nystatin (Nystatin Top Powder*) 1 applic TOPICAL BID [facility] Last Admin: 10/18/17 09:45 Dose: 1 applic Ondansetron HCl (Zofran Tab*) 4 mg PO Q8H PRN PRN Reason: INDIGESTION Last Admin: 10/15/17 04:20 Dose: 4 mg Polyethylene Glycol/Electrolytes (Miralax*) 17 gm PO 0800,2100 [facility] [place] Last Admin: 10/18/17 09:34 Dose: 17 gm Sitagliptin Phosphate (Januvia (Nf)) 100 mg PO DAILY [facility] Last Admin: 10/18/17 09:34 Dose: 100 mg Temazepam (Restoril Cap*) 15 mg PO BEDTIME [facility] [place] Last Admin: 10/17/17 20:32 Dose: 15 mg Topiramate (Topamax(*)) 100 mg PO BID [facility] Last Admin: 10/18/17 09:35 Dose: 100 mg - Discharge Plan Discharge Plan: Out[facility]
[2017-10-18] MEDS: Insulin GLARGINE(*) 1 UNITS UNIT SUBCUT SCH (21:33)
[2017-10-18] MEDS: Atorvastatin* 20 MG TAB PO SCH (21:35)
[2017-10-18] MEDS: CloZAPine TAB* 100 MG TAB PO SCH (21:35)
[2017-10-18] MEDS: Temazepam CAP* 15 MG PO SCH (21:37)
[2017-10-19] MEDS: Levothyroxine TAB* 88 MCG TAB PO SCH (07:42)
[2017-10-19] MEDS: CMC:SitaGLIPtin (NF) 100 MG TAB PO SCH (09:36)
[2017-10-19] MEDS: metFORMIN* 1,000 MG TAB PO SCH ×2 (09:37→21:25)
[2017-10-19] MEDS: Nitrofurantoin Macrocrystals* 50 MG CAP PO SCH ×2 (09:37→21:25)
[2017-10-19] MEDS: Vitamin THERAPEUTIC TAB PO SCH (09:37)
[2017-10-19] MEDS: Topiramate TAB(*) 100 MG PO SCH ×2 (09:37→21:26)
[2017-10-19] MEDS: Docusate CAP* 100 MG PO SCH ×2 (09:37→21:24)
[2017-10-19] MEDS: Polyethylene Glycol 3350* 17 GM PACKET PO SCH ×2 (09:38→21:27)
[2017-10-19] MEDS: Fluticasone NASAL SPRAY 50MCG* 16 gm SPRAY BTL BOTH NARES SCH (09:38)
[2017-10-19] MEDS: Nystatin TOP POWDER* 15 GM BTL TOPICAL SCH ×2 (11:13→21:29)
--- NOTE | 2017-10-19 11:46 | PN ---
MHU: Group Therapy Note - Service Type Service Type: [id number] Group Psychotherapy - Cognitive Behavioral Group Therapy ( CBT):Patient was attentive and participatory in CBT programming this morning, and remained in good behavioral control. Patient expressed positive insights regarding relevant treatment interventions and goals.
--- NOTE | 2017-10-19 20:41 | PN ---
Subjective - Subjective Date of Service: 10/19/17 Service Type: [id number] Hosp care 25 min moderate complexity Subjective: Erin's main psychiatric concern today is the cyclical nature she finds herself in while trying to extricate herself from depression. Because she knows the things she has to do to improve her mood, walk, go to groups, eat dinner, but she is in pain when she does this, she feels like she's stuck in a cycle of pain and unhappiness. She is trying hard, but having a difficult time. We will change the ibuprofen to 600 mg TID scheduled to help her tolerate the pain she is in. She continues to have hallucinations, but these are better and improving daily. Objective - Appearance Appearance: Healthy Appearing, Obese Dysmorphic Features: No Hygiene: Normal Grooming: Disheveled - Behavior Psychomotor Activities: Normal Exhibits Abnormal Movement: No - Attitude and Relatedness Attitude and Relatedness: Needy Eye Contact: Fair - Speech Quality: Pressured Latencies: Normal Quantity: Appropriate - Mood Patient's Decription of Mood: "Okay" - Affect Observed Affect: Depressed Affect Consistent with: Dysphoria - Thought Process Patient's Thought Process: Coherent Thought Content: No Passive Wish, No Suicidal Planning, No Homicidal Ideation, No Paranoid Ideation - Sensorium Experiencing Hallucinations: Yes Type of Hallucinations: Visual: No, Auditory: Yes, Command: Yes - Level of Consciousness Level of Consciousness: Alert Orientation: Yes Intact, Yes Orientated to Time, Yes Orientated to Place, Yes Orientated to Person - Impulse Control Impulse Control: Intact - Insight and Judgement Insight and Judgement: Fair - Group Participation Particating in Group Activities: Yes - Medication Management Medication Management Adherence: Yes - Additional Observations Comments: Erin is sleepy right now. She is adherent to medication recommendations. She was free from auditory hallucinations a few weeks ago, but these have recurred in the context of her discontinuing her own medications. With restarting her medications, she is slowly getting better, the hallucinations are reduced. Her physical health is impaired in that she is constipated, has a UTI, and has a yeast infection in her thighs. Assessment - Assessment Merits Inpatient Hospitalization: For Immediate Safety, For Stabilization Inpatient DSM-V Dx: F25.0 Clinical Impression: Erin has done well in the past on the medication regimen she has been on. Because she recently stopped her medication, feeling like she didn't need it, a restart of meds and the continuing monitoring of her safety is necessary. She is working hard to deal with her auditory hallucinations. She does not seem to have a lot of internal resources for dealing with this problem, but she continues to use the skills she has already developed to improve her situation. Plan - Plan Treatment Plan: Name: ERIN MILAN Birthdate: 1965 [id number] Medications: Current Medications Al Hydrox/Mg Hydrox/Simethicone (Maalox Plus*) 30 ml PO Q4H PRN PRN Reason: INDIGESTION Last Admin: 10/15/17 04:20 Dose: 30 ml Albuterol (Ventolin Hfa Inhaler*) 1 puff INH Q6H PRN PRN Reason: SHORTNESS OF BREATH Atorvastatin Calcium (Lipitor*) 20 mg PO BEDTIME [facility] Last Admin: 10/18/17 21:35 Dose: 20 mg Clozapine (Clozapine Tab*) 300 mg PO BEDTIME [facility] Last Admin: 10/18/17 21:35 Dose: 300 mg Docusate Sodium (Colace Cap*) 100 mg PO BID [facility] Last Admin: 10/19/17 09:37 Dose: 100 mg Fluconazole (Diflucan 100 Mg Tab*) 150 mg PO Q72H [facility] Stop: 10/23/17 18:01 Last Admin: 10/17/17 18:28 Dose: 150 mg Fluticasone Propionate (Flonase Nasal [place] 50mcg*) 2 spray BOTH NARES DAILY [facility] Last Admin: 10/19/17 09:38 Dose: 2 spray Ibuprofen (Motrin Tab*) 600 mg PO TID [facility] Insulin Glargine (Lantus(*)) 20 units SUBCUT DAILY@2100 [facility] Last Admin: 10/18/17 21:33 Dose: 20 units Levothyroxine Sodium (Synthroid Tab*) 88 mcg PO DAILY@0600 [facility] Last Admin: 10/19/17 07:42 Dose: 88 mcg Magnesium Hydroxide (Milk Of Magnesia Liq*) 30 ml PO Q6H PRN PRN Reason: CONSTIPATION Last Admin: 10/18/17 14:42 Dose: 30 ml Metformin HCl (Glucophage*) 1,000 mg PO BID [facility] Last Admin: 10/19/17 09:37 Dose: 1,000 mg Multivitamins (Theragran Tab*) 1 tab PO DAILY [facility] Last Admin: 10/19/17 09:37 Dose: 1 tab Nicotine Polacrilex (Nicotine Gum*) 2 mg PO Q2H PRN PRN Reason: CRAVING Nitrofurantoin Macrocrystals (Macrodantin*) 50 mg PO BID [facility] Stop: 10/22/17 23:59 Last Admin: 10/19/17 09:37 Dose: 50 mg Nystatin (Nystatin Top Powder*) 1 applic TOPICAL BID [facility] Last Admin: 10/19/17 11:13 Dose: 1 applic Ondansetron HCl (Zofran Tab*) 4 mg PO Q8H PRN PRN Reason: INDIGESTION Last Admin: 10/15/17 04:20 Dose: 4 mg Polyethylene Glycol/Electrolytes (Miralax*) 17 gm PO 0800,2100 [facility] Last Admin: 10/19/17 09:38 Dose: 17 gm Sitagliptin Phosphate (Januvia (Nf)) 100 mg PO DAILY [facility] Last Admin: 10/19/17 09:36 Dose: 100 mg Temazepam (Restoril Cap*) 15 mg PO BEDTIME [facility] Last Admin: 10/18/17 21:37 Dose: 15 mg Topiramate (Topamax(*)) 100 mg PO BID [facility] Last Admin: 10/19/17 09:37 Dose: 100 mg - Discharge Plan Additional Comments: Continue treating with outpatient medications. Follow up with blood tests for HA1c and lipids. Continue treatment with previous outpatient medications. Consider higher dose of clozapine or temporary antipsychotic polypharmacy to reduce the hallucinations.
[2017-10-19] MEDS: Insulin GLARGINE(*) 1 UNITS UNIT SUBCUT SCH (21:22)
[2017-10-19] MEDS: Atorvastatin* 20 MG TAB PO SCH (21:23)
[2017-10-19] MEDS: CloZAPine TAB* 100 MG TAB PO SCH (21:24)
[2017-10-19] MEDS: Ibuprofen TAB* 600 MG PO SCH (21:24)
[2017-10-19] MEDS: Temazepam CAP* 15 MG PO SCH (21:25)
[2017-10-20] MEDS: Levothyroxine TAB* 88 MCG TAB PO SCH (08:09)
[2017-10-20] MEDS: Ibuprofen TAB* 600 MG PO SCH ×3 (08:09→21:07)
[2017-10-20] MEDS: CMC:SitaGLIPtin (NF) 100 MG TAB PO SCH (08:09)
[2017-10-20] MEDS: metFORMIN* 1,000 MG TAB PO SCH ×2 (08:09→21:05)
[2017-10-20] MEDS: Nitrofurantoin Macrocrystals* 50 MG CAP PO SCH ×2 (08:09→21:07)
[2017-10-20] MEDS: Vitamin THERAPEUTIC TAB PO SCH (08:09)
[2017-10-20] MEDS: Fluticasone NASAL SPRAY 50MCG* 16 gm SPRAY BTL BOTH NARES SCH (08:10)
[2017-10-20] MEDS: Topiramate TAB(*) 100 MG PO SCH ×2 (08:10→21:08)
[2017-10-20] MEDS: Polyethylene Glycol 3350* 17 GM PACKET PO SCH ×2 (08:10→21:09)
[2017-10-20] MEDS: Nystatin TOP POWDER* 15 GM BTL TOPICAL SCH ×2 (08:10→21:11)
[2017-10-20] MEDS: Docusate CAP* 100 MG PO SCH ×2 (08:10→21:05)
--- NOTE | 2017-10-20 13:57 | PN ---
MHU: Group Therapy Note - Service Type Service Type: [id number] Group Psychotherapy - Cognitive Behavioral Group Therapy ( CBT):Patient was attentive and participatory in CBT programming this morning, and remained in good behavioral control. Patient expressed positive insights regarding relevant treatment interventions and goals.
--- NOTE | 2017-10-20 15:46 | PN ---
Subjective - Subjective Date of Service: 10/20/17 Service Type: [id number] Hosp care 15 min low complexity Subjective: Erin reports continuing pain in her rectum. The pain she feels in her groin and rectum are quite intense and distracting. She states the auditory hallucinations are "a little better." She feels safe here on the unit, but cannot say that she'd feel safe if she left. We set a goal of leaving Thursday, or at least reassessing on Thursday. She states, "I can strive for Thursday." Her goals include staying out of her room, going to all groups, eating each meal, conversing with staff and patients, getting fresh air, and being positive. Objective - Appearance Appearance: Well Developed/Nourished, Obese Dysmorphic Features: No Hygiene: Normal Grooming: Well Kept - Behavior Psychomotor Activities: Normal Exhibits Abnormal Movement: No - Attitude and Relatedness Attitude and Relatedness: Needy Eye Contact: Fair - Speech Quality: Pressured Latencies: Normal Quantity: Appropriate - Mood Patient's Decription of Mood: "Upset" - Affect Observed Affect: Constricted Affect Consistent with: Dysphoria - Thought Process Patient's Thought Process: Coherent Thought Content: No Passive Wish, No Suicidal Planning, No Homicidal Ideation, No Paranoid Ideation - Sensorium Experiencing Hallucinations: Yes Type of Hallucinations: Visual: No, Auditory: Yes, Command: Yes - Level of Consciousness Level of Consciousness: Alert Orientation: Yes Intact, Yes Orientated to Time, Yes Orientated to Place, Yes Orientated to Person - Impulse Control Impulse Control: Impaired - Insight and Judgement Insight and Judgement: Fair - Group Participation Particating in Group Activities: Yes - Medication Management Medication Management Adherence: Yes - Additional Observations Comments: She is adherent to medication recommendations. She was free from auditory hallucinations a few weeks ago, but these have recurred in the context of her discontinuing her own medications. With restarting her medications, she is slowly getting better, the hallucinations are reduced. Her physical health is impaired in that she has a UTI and has a yeast infection in her thighs. 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 Because she recently stopped her medication, feeling like she didn't need it, a restart of meds and the continuing monitoring of her safety is necessary. She is working hard to deal with her auditory hallucinations. She does not seem to have a lot of internal resources for dealing with this problem, but she continues to use the skills she has already developed to improve her situation. Plan - Plan Treatment Plan: Name: ERIN MILAN Birthdate: 1965 [id number] Medications: Current Medications Al Hydrox/Mg Hydrox/Simethicone (Maalox Plus*) 30 ml PO Q4H PRN PRN Reason: INDIGESTION Last Admin: 10/15/17 04:20 Dose: 30 ml Albuterol (Ventolin Hfa Inhaler*) 1 puff INH Q6H PRN PRN Reason: SHORTNESS OF BREATH Atorvastatin Calcium (Lipitor*) 20 mg PO BEDTIME [facility] Last Admin: 10/19/17 21:23 Dose: 20 mg Clozapine (Clozapine Tab*) 300 mg PO BEDTIME [facility] Last Admin: 10/19/17 21:24 Dose: 300 mg Docusate Sodium (Colace Cap*) 100 mg PO BID [facility] Last Admin: 10/20/17 08:10 Dose: 100 mg Fluconazole (Diflucan 100 Mg Tab*) 150 mg PO Q72H [facility] Stop: 10/23/17 18:01 Last Admin: 10/17/17 18:28 Dose: 150 mg Fluticasone Propionate (Flonase Nasal [place] 50mcg*) 2 spray BOTH NARES DAILY [facility] Last Admin: 10/20/17 08:10 Dose: 2 spray Ibuprofen (Motrin Tab*) 600 mg PO TID [facility] Last Admin: 10/20/17 14:04 Dose: 600 mg Insulin Glargine (Lantus(*)) 20 units SUBCUT DAILY@2100 [facility] Last Admin: 10/19/17 21:22 Dose: 20 units Levothyroxine Sodium (Synthroid Tab*) 88 mcg PO DAILY@0600 [facility] Last Admin: 10/20/17 08:09 Dose: 88 mcg Magnesium Hydroxide (Milk Of Magnesia Liq*) 30 ml PO Q6H PRN PRN Reason: CONSTIPATION Last Admin: 10/18/17 14:42 Dose: 30 ml Metformin HCl (Glucophage*) 1,000 mg PO BID [facility] Last Admin: 10/20/17 08:09 Dose: 1,000 mg Multivitamins (Theragran Tab*) 1 tab PO DAILY [facility] Last Admin: 10/20/17 08:09 Dose: 1 tab Nicotine Polacrilex (Nicotine Gum*) 2 mg PO Q2H PRN PRN Reason: CRAVING Nitrofurantoin Macrocrystals (Macrodantin*) 50 mg PO BID [facility] Stop: 10/22/17 23:59 Last Admin: 10/20/17 08:09 Dose: 50 mg Nystatin (Nystatin Top Powder*) 1 applic TOPICAL BID [facility] Last Admin: 10/20/17 08:10 Dose: 1 applic Ondansetron HCl (Zofran Tab*) 4 mg PO Q8H PRN PRN Reason: INDIGESTION Last Admin: 10/15/17 04:20 Dose: 4 mg Polyethylene Glycol/Electrolytes (Miralax*) 17 gm PO 0800,2100 [facility] Last Admin: 10/20/17 08:10 Dose: 17 gm Sitagliptin Phosphate (Januvia (Nf)) 100 mg PO DAILY [facility] Last Admin: 10/20/17 08:09 Dose: 100 mg Temazepam (Restoril Cap*) 15 mg PO BEDTIME [facility] Last Admin: 10/19/17 21:25 Dose: 15 mg Topiramate (Topamax(*)) 100 mg PO BID [facility] Last Admin: 10/20/17 08:10 Dose: 100 mg - Discharge Plan Additional Comments: Continue treating with outpatient medications. Follow up with blood tests for HA1c and lipids. Continue treatment with previous outpatient medications. Continue to reassess for safety and revisit this discussion at the latest on Thursday.
[2017-10-20] MEDS: Fluconazole 100 MG TAB* TAB PO SCH (20:52)
[2017-10-20] MEDS: CloZAPine TAB* 100 MG TAB PO SCH (21:06)
[2017-10-20] MEDS: Temazepam CAP* 15 MG PO SCH (21:08)
[2017-10-20] MEDS: Atorvastatin* 20 MG TAB PO SCH (21:09)
[2017-10-20] MEDS: Al Hydrox/Mg Hydrox/Simet LIQ* 30 ML UDC PO PRN (21:09)
[2017-10-20] MEDS: Insulin GLARGINE(*) 1 UNITS UNIT SUBCUT SCH (21:12)
[2017-10-21] MEDS: Levothyroxine TAB* 88 MCG TAB PO SCH (07:40)
[2017-10-21] MEDS: Polyethylene Glycol 3350* 17 GM PACKET PO SCH ×2 (09:19→21:29)
[2017-10-21] MEDS: Docusate CAP* 100 MG PO SCH ×2 (09:20→21:27)
[2017-10-21] MEDS: Ibuprofen TAB* 600 MG PO SCH ×3 (09:21→21:27)
[2017-10-21] MEDS: metFORMIN* 1,000 MG TAB PO SCH ×2 (09:21→21:28)
[2017-10-21] MEDS: Fluticasone NASAL SPRAY 50MCG* 16 gm SPRAY BTL BOTH NARES SCH (09:21)
[2017-10-21] MEDS: Nystatin TOP POWDER* 15 GM BTL TOPICAL SCH ×2 (09:22→21:38)
[2017-10-21] MEDS: Nitrofurantoin Macrocrystals* 50 MG CAP PO SCH ×2 (09:22→21:30)
[2017-10-21] MEDS: CMC:SitaGLIPtin (NF) 100 MG TAB PO SCH (09:22)
[2017-10-21] MEDS: Vitamin THERAPEUTIC TAB PO SCH (09:22)
[2017-10-21] MEDS: Topiramate TAB(*) 100 MG PO SCH ×2 (09:22→21:28)
--- NOTE | 2017-10-21 11:03 | PN ---
MHU: Group Therapy Note - Service Type Service Type: 50063 Group Psychotherapy - Cognitive Behavioral Group Therapy ( CBT):Patient was attentive and participatory in CBT programming this morning, and remained in good behavioral control. Patient expressed positive insights regarding relevant treatment interventions and goals.
--- NOTE | 2017-10-21 15:28 | PN ---
Subjective - Subjective Date of Service: 10/21/17 Service Type: [id number] Hosp care 15 min low complexity Subjective: Erin's affect remains flat and she continues to have command hallucinations telling her to jump from a tree. Nevertheless, she remains goal focused and is taking care to fulfill the goals she made for herself. She is having some problems with personal hygiene, likely secondary to the infections she has. She is doing her best to improve that and her roommate Vero has agreed to bring her cotton underpants which should help with reducing infection and odor. Objective - Appearance Appearance: Well Developed/Nourished, Obese Dysmorphic Features: No Hygiene: Mal-odorous Grooming: Fairly Well Kept - Behavior Psychomotor Activities: Normal Exhibits Abnormal Movement: No - Attitude and Relatedness Attitude and Relatedness: Needy Eye Contact: Good - Speech Quality: Pressured Latencies: Normal Quantity: Appropriate - Mood Patient's Decription of Mood: "Okay" - Affect Observed Affect: Constricted Affect Consistent with: Dysphoria - Thought Process Patient's Thought Process: Coherent Thought Content: Yes Passive Wish, No Suicidal Planning, No Homicidal Ideation, No Paranoid Ideation - Sensorium Experiencing Hallucinations: Yes Type of Hallucinations: Visual: No, Auditory: Yes, Command: Yes - Level of Consciousness Level of Consciousness: Alert Orientation: Yes Intact, Yes Orientated to Time, Yes Orientated to Place, Yes Orientated to Person - Impulse Control Impulse Control: Impaired - Insight and Judgement Insight and Judgement: Impaired - Group Participation Particating in Group Activities: Yes - Medication Management Medication Management Adherence: Yes - Additional Observations Comments: She is adherent to medication recommendations. She was free from auditory hallucinations a few weeks ago, but these have recurred in the context of her discontinuing her own medications. With restarting her medications, she is slowly getting better, the hallucinations are reduced. Her physical health is impaired in that she has a UTI as well as a yeast infection in her thighs. Assessment - Assessment Merits Inpatient Hospitalization: For Immediate Safety, For Stabilization Inpatient DSM-V Dx: F25.0 Clinical Impression: Erin has done well in the past on the medication regimen she has been on. Because she recently stopped her medication, feeling like she didn't need it, a restart of meds and the continuing monitoring of her safety is necessary. She is working hard to deal with her auditory hallucinations. She does not seem to have a lot of internal resources for dealing with this problem, but she continues to use the skills she has already developed to improve her situation. Plan - Plan Treatment Plan: Name: ERIN MILAN Birthdate: 1965 [id number] Medications: Current Medications Al Hydrox/Mg Hydrox/Simethicone (Maalox Plus*) 30 ml PO Q4H PRN PRN Reason: INDIGESTION Last Admin: 10/20/17 21:09 Dose: 30 ml Albuterol (Ventolin Hfa Inhaler*) 1 puff INH Q6H PRN PRN Reason: SHORTNESS OF BREATH Atorvastatin Calcium (Lipitor*) 20 mg PO BEDTIME [facility] Last Admin: 10/20/17 21:09 Dose: 20 mg Clozapine (Clozapine Tab*) 300 mg PO BEDTIME [facility] Last Admin: 10/20/17 21:06 Dose: 300 mg Docusate Sodium (Colace Cap*) 100 mg PO BID [facility] Last Admin: 10/21/17 09:20 Dose: 100 mg Fluconazole (Diflucan 100 Mg Tab*) 150 mg PO Q72H [facility] Stop: 10/23/17 18:01 Last Admin: 10/20/17 20:52 Dose: 150 mg Fluticasone Propionate (Flonase Nasal [place] 50mcg*) 2 spray BOTH NARES DAILY [facility] Last Admin: 10/21/17 09:21 Dose: 2 spray Ibuprofen (Motrin Tab*) 600 mg PO TID [facility] Last Admin: 10/21/17 13:50 Dose: 600 mg Insulin Glargine (Lantus(*)) 20 units SUBCUT DAILY@2100 [facility] Last Admin: 10/20/17 21:12 Dose: 20 units Levothyroxine Sodium (Synthroid Tab*) 88 mcg PO DAILY@0600 [facility] Last Admin: 10/21/17 07:40 Dose: 88 mcg Magnesium Hydroxide (Milk Of Magnesia Liq*) 30 ml PO Q6H PRN PRN Reason: CONSTIPATION Last Admin: 10/18/17 14:42 Dose: 30 ml Metformin HCl (Glucophage*) 1,000 mg PO BID [facility] Last Admin: 10/21/17 09:21 Dose: 1,000 mg Multivitamins (Theragran Tab*) 1 tab PO DAILY [facility] Last Admin: 10/21/17 09:22 Dose: 1 tab Nicotine Polacrilex (Nicotine Gum*) 2 mg PO Q2H PRN PRN Reason: CRAVING Nitrofurantoin Macrocrystals (Macrodantin*) 50 mg PO BID [facility] Stop: 10/22/17 23:59 Last Admin: 10/21/17 09:22 Dose: 50 mg Nystatin (Nystatin Top Powder*) 1 applic TOPICAL BID [facility] Last Admin: 10/21/17 09:22 Dose: 1 applic Ondansetron HCl (Zofran Tab*) 4 mg PO Q8H PRN PRN Reason: INDIGESTION Last Admin: 10/15/17 04:20 Dose: 4 mg Polyethylene Glycol/Electrolytes (Miralax*) 17 gm PO 0800,2100 [facility] Last Admin: 10/21/17 09:19 Dose: 17 gm Sitagliptin Phosphate (Januvia (Nf)) 100 mg PO DAILY [facility] Last Admin: 10/21/17 09:22 Dose: 100 mg Temazepam (Restoril Cap*) 15 mg PO BEDTIME [facility] Last Admin: 10/20/17 21:08 Dose: 15 mg Topiramate (Topamax(*)) 100 mg PO BID [facility] Last Admin: 10/21/17 09:22 Dose: 100 mg - Discharge Plan Additional Comments: Continue treating with outpatient medications. Follow up with blood tests for HA1c and lipids. Continue treatment with previous outpatient medications. Continue to reassess for safety and revisit this discussion at the latest on Thursday.
[2017-10-21] MEDS: CloZAPine TAB* 100 MG TAB PO SCH (21:26)
[2017-10-21] MEDS: Temazepam CAP* 15 MG PO SCH (21:28)
[2017-10-21] MEDS: Atorvastatin* 20 MG TAB PO SCH (21:28)
[2017-10-21] MEDS: Insulin GLARGINE(*) 1 UNITS UNIT SUBCUT SCH (21:46)
[2017-10-22] MEDS: CMC:SitaGLIPtin (NF) 100 MG TAB PO SCH (10:46)
[2017-10-22] MEDS: Nitrofurantoin Macrocrystals* 50 MG CAP PO SCH ×2 (10:46→20:21)
[2017-10-22] MEDS: Topiramate TAB(*) 100 MG PO SCH ×2 (10:47→20:21)
[2017-10-22] MEDS: Ibuprofen TAB* 600 MG PO SCH ×3 (10:47→20:20)
[2017-10-22] MEDS: Docusate CAP* 100 MG PO SCH ×2 (10:47→20:20)
[2017-10-22] MEDS: Vitamin THERAPEUTIC TAB PO SCH (10:47)
[2017-10-22] MEDS: metFORMIN* 1,000 MG TAB PO SCH ×2 (10:47→20:20)
[2017-10-22] MEDS: Fluticasone NASAL SPRAY 50MCG* 16 gm SPRAY BTL BOTH NARES SCH (10:48)
[2017-10-22] MEDS: Nystatin TOP POWDER* 15 GM BTL TOPICAL SCH ×2 (10:48→21:15)
[2017-10-22] MEDS: Levothyroxine TAB* 88 MCG TAB PO SCH (10:48)
[2017-10-22] MEDS: Polyethylene Glycol 3350* 17 GM PACKET PO SCH ×2 (10:48→20:17)
--- NOTE | 2017-10-22 16:51 | PN ---
Subjective - Subjective Date of Service: 10/22/17 Service Type: [id number] Hosp care 15 min low complexity Subjective: Erin appears to be brightening a small amount. She is mostly concerned about her skin around her groin and how it will heal if it continues to stick to her underpants. Her command hallucinations are quieting. She discusses her roommates who are intense people. Apparently they are mario in getting her out of bed and going to groups at [employer]. They seem, from her description, to be impressively persuasive to Erin. Objective - Appearance Appearance: Healthy Appearing, Obese Dysmorphic Features: No Hygiene: Normal - Behavior Psychomotor Activities: Normal Exhibits Abnormal Movement: No - Attitude and Relatedness Attitude and Relatedness: Needy Eye Contact: Fair - Speech Quality: Pressured Latencies: Normal Quantity: Terse - Mood Patient's Decription of Mood: "Okay" - Affect Observed Affect: Depressed Affect Consistent with: Dysphoria - Thought Process Patient's Thought Process: Coherent, Goal Directed, Circumstantial Thought Content: Yes Passive Wish, No Suicidal Planning, No Homicidal Ideation, No Paranoid Ideation - Sensorium Experiencing Hallucinations: Yes Type of Hallucinations: Visual: No, Auditory: Yes, Command: Yes - Level of Consciousness Level of Consciousness: Alert Orientation: Yes Intact, Yes Orientated to Time, Yes Orientated to Place, Yes Orientated to Person - Impulse Control Impulse Control: Impaired - Insight and Judgement Insight and Judgement: Fair - Group Participation Particating in Group Activities: Yes - Medication Management Medication Management Adherence: Yes - Additional Observations Comments: She is adherent to medication recommendations. She was free from auditory hallucinations a few weeks ago, but these have recurred in the context of her discontinuing her own medications. With restarting her medications, she is slowly getting better, the hallucinations are reduced. Her physical health is impaired in that she has a UTI as well as a yeast infection in her thighs. Assessment - Assessment Inpatient DSM-V Dx: F25.0 Clinical Impression: Erin has done well in the past on the medication regimen she has been on. Because she recently stopped her medication, feeling like she didn't need it, a restart of meds and the continuing monitoring of her safety is necessary. She is working hard to deal with her auditory hallucinations. She does not seem to have a lot of internal resources for dealing with this problem, but she continues to use the skills she has already developed to improve her situation. Plan - Plan Treatment Plan: Name: ERIN MILAN Birthdate: 1965 [id number] Medications: Current Medications Al Hydrox/Mg Hydrox/Simethicone (Maalox Plus*) 30 ml PO Q4H PRN PRN Reason: INDIGESTION Last Admin: 10/20/17 21:09 Dose: 30 ml Albuterol (Ventolin Hfa Inhaler*) 1 puff INH Q6H PRN PRN Reason: SHORTNESS OF BREATH Atorvastatin Calcium (Lipitor*) 20 mg PO BEDTIME [facility] Last Admin: 10/21/17 21:28 Dose: 20 mg Clozapine (Clozapine Tab*) 300 mg PO BEDTIME [facility] Last Admin: 10/21/17 21:26 Dose: 300 mg Docusate Sodium (Colace Cap*) 100 mg PO BID [facility] Last Admin: 10/22/17 10:47 Dose: 100 mg Fluconazole (Diflucan 100 Mg Tab*) 150 mg PO Q72H [facility] Stop: 10/23/17 18:01 Last Admin: 10/20/17 20:52 Dose: 150 mg Fluticasone Propionate (Flonase Nasal [place] 50mcg*) 2 spray BOTH NARES DAILY [facility] Last Admin: 10/22/17 10:48 Dose: 2 spray Ibuprofen (Motrin Tab*) 600 mg PO TID [facility] Last Admin: 10/22/17 14:21 Dose: 600 mg Insulin Glargine (Lantus(*)) 20 units SUBCUT DAILY@2100 [facility] Last Admin: 10/21/17 21:46 Dose: 20 units Levothyroxine Sodium (Synthroid Tab*) 88 mcg PO DAILY@0600 [facility] Last Admin: 10/22/17 10:48 Dose: 88 mcg Magnesium Hydroxide (Milk Of Magnesia Liq*) 30 ml PO Q6H PRN PRN Reason: CONSTIPATION Last Admin: 10/18/17 14:42 Dose: 30 ml Metformin HCl (Glucophage*) 1,000 mg PO BID [facility] Last Admin: 10/22/17 10:47 Dose: 1,000 mg Multivitamins (Theragran Tab*) 1 tab PO DAILY [facility] Last Admin: 10/22/17 10:47 Dose: 1 tab Nicotine Polacrilex (Nicotine Gum*) 2 mg PO Q2H PRN PRN Reason: CRAVING Nitrofurantoin Macrocrystals (Macrodantin*) 50 mg PO BID [facility] Stop: 10/22/17 23:59 Last Admin: 10/22/17 10:46 Dose: 50 mg Nystatin (Nystatin Top Powder*) 1 applic TOPICAL BID [facility] Last Admin: 10/22/17 10:48 Dose: 1 applic Ondansetron HCl (Zofran Tab*) 4 mg PO Q8H PRN PRN Reason: INDIGESTION Last Admin: 10/15/17 04:20 Dose: 4 mg Polyethylene Glycol/Electrolytes (Miralax*) 17 gm PO 0800,2100 [facility] Last Admin: 10/22/17 10:48 Dose: 17 gm Sitagliptin Phosphate (Januvia (Nf)) 100 mg PO DAILY [facility] Last Admin: 10/22/17 10:46 Dose: 100 mg Temazepam (Restoril Cap*) 15 mg PO BEDTIME [facility] Last Admin: 10/21/17 21:28 Dose: 15 mg Topiramate (Topamax(*)) 100 mg PO BID [facility] Last Admin: 10/22/17 10:47 Dose: 100 mg - Discharge Plan Additional Comments: Continue treating with outpatient medications. Follow up with blood tests for HA1c and lipids. Continue treatment with previous outpatient medications. Continue to reassess for safety and revisit this discussion at the latest on Thursday.
--- NOTE | 2017-10-22 16:58 | PN ---
MHU: Group Therapy Note - Service Type Service Type: [id number] Group Psychotherapy - Group Participation Patient Participating in Group: Yes Level of Group Participation: Spontaneously Participate Relatedness to Group: Well Related - Additional Group Comments Group Comments: Erin participated responsibly and appropriately. She showed interest and related well to others. Her comments were on target and appropriate. She appropriately brought up questions that related mainly to her.
[2017-10-22] MEDS: Atorvastatin* 20 MG TAB PO SCH (20:18)
[2017-10-22] MEDS: CloZAPine TAB* 100 MG TAB PO SCH (20:19)
[2017-10-22] MEDS: Temazepam CAP* 15 MG PO SCH (20:21)
[2017-10-22] MEDS: Insulin GLARGINE(*) 1 UNITS UNIT SUBCUT SCH (20:27)
[2017-10-23] MEDS: Levothyroxine TAB* 88 MCG TAB PO SCH (06:30)
[2017-10-23] MEDS: Fluticasone NASAL SPRAY 50MCG* 16 gm SPRAY BTL BOTH NARES SCH (09:26)
[2017-10-23] MEDS: Topiramate TAB(*) 100 MG PO SCH ×2 (09:27→20:44)
[2017-10-23] MEDS: Docusate CAP* 100 MG PO SCH ×2 (09:27→20:42)
[2017-10-23] MEDS: Ibuprofen TAB* 600 MG PO SCH ×3 (09:27→20:43)
[2017-10-23] MEDS: Vitamin THERAPEUTIC TAB PO SCH (09:27)
[2017-10-23] MEDS: metFORMIN* 1,000 MG TAB PO SCH ×2 (09:27→20:43)
[2017-10-23] MEDS: CMC:SitaGLIPtin (NF) 100 MG TAB PO SCH (09:27)
[2017-10-23] MEDS: Nystatin TOP POWDER* 15 GM BTL TOPICAL SCH ×2 (09:29→20:51)
[2017-10-23] MEDS: Polyethylene Glycol 3350* 17 GM PACKET PO SCH ×2 (09:29→20:45)
--- NOTE | 2017-10-23 14:10 | RAD ---
HISTORY: r/o obstruction, no other history is provided COMPARISONS: CT dated July 24, 2017 VIEWS: Frontal views of the abdomen. FINDINGS: BOWEL: There is a nonobstructive bowel gas pattern. There is a large amount of stool within the colon. CALCULI: There are no abnormal calculi. BONES AND SOFT TISSUES: Mild degenerative changes are noted. OTHER FINDINGS: The lung bases are clear. There is no subphrenic gas. IMPRESSION: NONOBSTRUCTIVE BOWEL GAS PATTERN. LARGE AMOUNT OF STOOL THROUGHOUT THE COLON.
--- NOTE | 2017-10-23 14:37 | PN ---
Subjective - Subjective Date of Service: 10/23/17 Service Type: [id number] Hosp care 15 min low complexity Subjective: Erin went for her abdominal x-ray today. The results indicate that while there is a large amount of stool in her colon, it is nonobstructive. Erin offered a smile today and states she is feeling somewhat better. She says the commanding voice is "not as bad as you'd think." Objective - Appearance Appearance: Well Developed/Nourished, Obese Dysmorphic Features: No Hygiene: Normal Grooming: Well Kept - Behavior Psychomotor Activities: Normal Exhibits Abnormal Movement: No - Attitude and Relatedness Attitude and Relatedness: Cooperative Eye Contact: Good - Speech Quality: Pressured Latencies: Normal Quantity: Terse - Mood Patient's Decription of Mood: "Okay" - Affect Observed Affect: Constricted Affect Consistent with: Dysphoria - Thought Process Patient's Thought Process: Coherent Thought Content: Yes Suicidal Planning, No Passive Wish, No Homicidal Ideation, No Paranoid Ideation - Sensorium Experiencing Hallucinations: Yes Type of Hallucinations: Visual: No, Auditory: Yes, Command: Yes - Level of Consciousness Level of Consciousness: Alert Orientation: Yes Intact, Yes Orientated to Time, Yes Orientated to Place, Yes Orientated to Person - Impulse Control Impulse Control: Intact - Insight and Judgement Insight and Judgement: Fair - Group Participation Particating in Group Activities: Yes - Medication Management Medication Management Adherence: Yes - Additional Observations Comments: She is adherent to medication recommendations. She was free from auditory hallucinations a few weeks ago, but these have recurred in the context of her discontinuing her own medications. With restarting her medications, she is slowly getting better, the hallucinations are reduced. Her physical health is impaired in that she has a UTI as well as a yeast infection in her thighs. These are being treated adequately at this time. Discharge is planned for next week. Assessment - Assessment Inpatient DSM-V Dx: F25.0 Clinical Impression: Erin has done well in the past on the medication regimen she has been on. Because she recently stopped her medication, feeling like she didn't need it, a restart of meds and the continuing monitoring of her safety is necessary. She is working hard to deal with her auditory hallucinations. She does not seem to have a lot of internal resources for dealing with this problem, but she continues to use the skills she has already developed to improve her situation. Plan - Plan Treatment Plan: Name: ERIN MILAN Birthdate: 1965 [id number] Medications: Current Medications Al Hydrox/Mg Hydrox/Simethicone (Maalox Plus*) 30 ml PO Q4H PRN PRN Reason: INDIGESTION Last Admin: 10/20/17 21:09 Dose: 30 ml Albuterol (Ventolin Hfa Inhaler*) 1 puff INH Q6H PRN PRN Reason: SHORTNESS OF BREATH Atorvastatin Calcium (Lipitor*) 20 mg PO BEDTIME [facility] Last Admin: 10/22/17 20:18 Dose: 20 mg Clozapine (Clozapine Tab*) 300 mg PO BEDTIME [facility] Last Admin: 10/22/17 20:19 Dose: 300 mg Docusate Sodium (Colace Cap*) 100 mg PO BID [facility] Last Admin: 10/23/17 09:27 Dose: 100 mg Fluconazole (Diflucan 100 Mg Tab*) 150 mg PO Q72H [facility] Stop: 10/23/17 18:01 Last Admin: 10/20/17 20:52 Dose: 150 mg Fluticasone Propionate (Flonase Nasal [place] 50mcg*) 2 spray BOTH NARES DAILY [facility] Last Admin: 10/23/17 09:26 Dose: 2 spray Ibuprofen (Motrin Tab*) 600 mg PO TID [facility] Last Admin: 10/23/17 09:27 Dose: 600 mg Insulin Glargine (Lantus(*)) 20 units SUBCUT DAILY@2100 [facility] Last Admin: 10/22/17 20:27 Dose: 20 units Levothyroxine Sodium (Synthroid Tab*) 88 mcg PO DAILY@0600 [facility] Last Admin: 10/23/17 06:30 Dose: 88 mcg Magnesium Hydroxide (Milk Of Magnesia Liq*) 30 ml PO Q6H PRN PRN Reason: CONSTIPATION Last Admin: 10/18/17 14:42 Dose: 30 ml Metformin HCl (Glucophage*) 1,000 mg PO BID [facility] Last Admin: 10/23/17 09:27 Dose: 1,000 mg Multivitamins (Theragran Tab*) 1 tab PO DAILY [facility] Last Admin: 10/23/17 09:27 Dose: 1 tab Nicotine Polacrilex (Nicotine Gum*) 2 mg PO Q2H PRN PRN Reason: CRAVING Nystatin (Nystatin Top Powder*) 1 applic TOPICAL BID [facility] Last Admin: 10/23/17 09:29 Dose: 1 applic Ondansetron HCl (Zofran Tab*) 4 mg PO Q8H PRN PRN Reason: INDIGESTION Last Admin: 10/15/17 04:20 Dose: 4 mg Polyethylene Glycol/Electrolytes (Miralax*) 17 gm PO 0800,2100 [facility] Last Admin: 10/23/17 09:29 Dose: 17 gm Sitagliptin Phosphate (Januvia (Nf)) 100 mg PO DAILY [facility] Last Admin: 10/23/17 09:27 Dose: 100 mg Temazepam (Restoril Cap*) 15 mg PO BEDTIME [facility] Last Admin: 10/22/17 20:21 Dose: 15 mg Topiramate (Topamax(*)) 100 mg PO BID [facility] Last Admin: 10/23/17 09:27 Dose: 100 mg - Discharge Plan Additional Comments: Continue treating with outpatient medications. Follow up with blood tests for HA1c and lipids. Continue treatment with previous outpatient medications. Continue to reassess for safety and revisit this discussion at the latest on Thursday.
[2017-10-23] MEDS: Fluconazole 100 MG TAB* TAB PO SCH (17:30)
[2017-10-23] MEDS: Atorvastatin* 20 MG TAB PO SCH (20:41)
[2017-10-23] MEDS: CloZAPine TAB* 100 MG TAB PO SCH (20:41)
[2017-10-23] MEDS: Temazepam CAP* 15 MG PO SCH (20:44)
[2017-10-23] MEDS: Insulin GLARGINE(*) 1 UNITS UNIT SUBCUT SCH (20:49)
[2017-10-24] MEDS: Levothyroxine TAB* 88 MCG TAB PO SCH (06:30)
[2017-10-24] MEDS: metFORMIN* 1,000 MG TAB PO SCH ×2 (09:36→20:44)
[2017-10-24] MEDS: Docusate CAP* 100 MG PO SCH ×2 (09:36→20:43)
[2017-10-24] MEDS: Vitamin THERAPEUTIC TAB PO SCH (09:36)
[2017-10-24] MEDS: Topiramate TAB(*) 100 MG PO SCH ×2 (09:36→20:45)
[2017-10-24] MEDS: Ibuprofen TAB* 600 MG PO SCH ×3 (09:37→20:42)
[2017-10-24] MEDS: Fluticasone NASAL SPRAY 50MCG* 16 gm SPRAY BTL BOTH NARES SCH (09:37)
[2017-10-24] MEDS: CMC:SitaGLIPtin (NF) 100 MG TAB PO SCH (09:37)
[2017-10-24] MEDS: Nystatin TOP POWDER* 15 GM BTL TOPICAL SCH ×2 (09:37→22:28)
[2017-10-24] MEDS: Polyethylene Glycol 3350* 17 GM PACKET PO SCH ×2 (09:38→20:44)
[2017-10-24] MEDS: Magnesium Hydroxide LIQ* 30 ML UDC PO PRN (14:33)
[2017-10-24] MEDS: CloZAPine TAB* 100 MG TAB PO SCH (20:43)
[2017-10-24] MEDS: Atorvastatin* 20 MG TAB PO SCH (20:43)
[2017-10-24] MEDS: Temazepam CAP* 15 MG PO SCH (20:44)
[2017-10-24] MEDS: Insulin GLARGINE(*) 1 UNITS UNIT SUBCUT SCH (20:45)
[2017-10-25] MEDS: Fluticasone NASAL SPRAY 50MCG* 16 gm SPRAY BTL BOTH NARES SCH (09:37)
[2017-10-25] MEDS: Polyethylene Glycol 3350* 17 GM PACKET PO SCH ×2 (09:38→20:32)
[2017-10-25] MEDS: Levothyroxine TAB* 88 MCG TAB PO SCH (09:38)
[2017-10-25] MEDS: Docusate CAP* 100 MG PO SCH ×2 (09:39→20:31)
[2017-10-25] MEDS: Vitamin THERAPEUTIC TAB PO SCH (09:39)
[2017-10-25] MEDS: metFORMIN* 1,000 MG TAB PO SCH ×2 (09:39→20:31)
[2017-10-25] MEDS: CMC:SitaGLIPtin (NF) 100 MG TAB PO SCH (09:39)
[2017-10-25] MEDS: Topiramate TAB(*) 100 MG PO SCH ×2 (09:39→20:31)
[2017-10-25] MEDS: Ibuprofen TAB* 600 MG PO SCH ×3 (09:40→20:31)
[2017-10-25] MEDS: Nystatin TOP POWDER* 15 GM BTL TOPICAL SCH ×2 (09:41→20:32)
[2017-10-25] MEDS: CloZAPine TAB* 100 MG TAB PO SCH (20:30)
[2017-10-25] MEDS: Temazepam CAP* 15 MG PO SCH (20:31)
[2017-10-25] MEDS: Atorvastatin* 20 MG TAB PO SCH (20:31)
[2017-10-25] MEDS: Insulin GLARGINE(*) 1 UNITS UNIT SUBCUT SCH (20:40)
[2017-10-26] MEDS: Levothyroxine TAB* 88 MCG TAB PO SCH (07:32)
[2017-10-26] MEDS: Polyethylene Glycol 3350* 17 GM PACKET PO SCH ×2 (08:53→21:18)
[2017-10-26] MEDS: Ibuprofen TAB* 600 MG PO SCH ×3 (08:54→21:17)
[2017-10-26] MEDS: Docusate CAP* 100 MG PO SCH ×2 (08:55→21:16)
[2017-10-26] MEDS: Vitamin THERAPEUTIC TAB PO SCH (08:55)
[2017-10-26] MEDS: metFORMIN* 1,000 MG TAB PO SCH ×2 (08:55→21:17)
[2017-10-26] MEDS: Topiramate TAB(*) 100 MG PO SCH ×2 (08:55→21:18)
[2017-10-26] MEDS: Fluticasone NASAL SPRAY 50MCG* 16 gm SPRAY BTL BOTH NARES SCH (08:56)
[2017-10-26] MEDS: CMC:SitaGLIPtin (NF) 100 MG TAB PO SCH (08:56)
[2017-10-26] MEDS: Nystatin TOP POWDER* 15 GM BTL TOPICAL SCH (08:57)
[2017-10-26] MEDS: Magnesium Hydroxide LIQ* 30 ML UDC PO PRN (13:35)
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
[2017-10-26] MEDS ORDERED: Lurasidone(*) 80 MG TAB PO SCH (17:00)
[2017-10-26] MEDS: Insulin GLARGINE(*) 1 UNITS UNIT SUBCUT SCH (21:13)
[2017-10-26] MEDS: Atorvastatin* 20 MG TAB PO SCH (21:15)
[2017-10-26] MEDS: CloZAPine TAB* 100 MG TAB PO SCH (21:16)
[2017-10-27] MEDS: Nystatin TOP POWDER* 15 GM BTL TOPICAL SCH ×2 (00:35→09:07)
[2017-10-27 08:29] VITALS: BP 107/85
[2017-10-27] MEDS: Docusate CAP* 100 MG PO SCH (09:05)
[2017-10-27] MEDS: Topiramate TAB(*) 100 MG PO SCH (09:05)
[2017-10-27] MEDS: Ibuprofen TAB* 600 MG PO SCH (09:05)
[2017-10-27] MEDS: CMC:SitaGLIPtin (NF) 100 MG TAB PO SCH (09:05)
[2017-10-27] MEDS: metFORMIN* 1,000 MG TAB PO SCH (09:06)
[2017-10-27] MEDS: Vitamin THERAPEUTIC TAB PO SCH (09:06)
[2017-10-27] MEDS: Levothyroxine TAB* 88 MCG TAB PO SCH (09:06)
[2017-10-27] MEDS: Polyethylene Glycol 3350* 17 GM PACKET PO SCH (09:07)
[2017-10-27] MEDS: Fluticasone NASAL SPRAY 50MCG* 16 gm SPRAY BTL BOTH NARES SCH (09:07)
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
== END 2017-10-27 10:45 | disposition home or self-care (01) | DRG 885 ==
LOC: ED 17:48 → BSU 10-13 05:42
PROVIDERS: ADMIT Psychiatry & Neurology Psychiatry; ATTEND Psychiatry & Neurology Psychiatry
PROC: GZHZZZZ Group Psychotherapy (ICD-10-PCS; principal; 2017-10-13)
DX: F25.0 Schizoaffective disorder, bipolar type (principal); R45.851 Suicidal ideations; N39.0 Urinary tract infection, site not specified; E78.00 Pure hypercholesterolemia, unspecified; J45.909 Unspecified asthma, uncomplicated; R41.83 Borderline intellectual functioning; E11.22 Type 2 diabetes mellitus with diabetic chronic kidney disease; N18.3 Chronic kidney disease, stage 3 (moderate); B37.2 Candidiasis of skin and nail; K59.00 Constipation, unspecified; E03.9 Hypothyroidism, unspecified; E66.01 Morbid (severe) obesity due to excess calories; Z88.1 Allergy status to other antibiotic agents; Z88.0 Allergy status to penicillin; Z88.8 Allergy status to other drugs, medicaments and biological substances; Z91.018 Allergy to other foods; Z86.718 Personal history of other venous thrombosis and embolism; Z87.11 Personal history of peptic ulcer disease; Z98.51 Tubal ligation status; Z82.49 Family history of ischemic heart disease and other diseases of the circulatory system; Z83.3 Family history of diabetes mellitus; Z68.38 Body mass index [BMI] 38.0-38.9, adult; Z91.14 Patient's other noncompliance with medication regimen; Z87.440 Personal history of urinary (tract) infections; Z91.5 Personal history of self-harm; Z23 Encounter for immunization; Z79.4 Long term (current) use of insulin
CPT/HCPCS: 36415; 74018; 80053; 80061; 80320; 80329; 81003; 81015; 83036; 84443; 85025; 87077; 87086; 87186; 90732; 90853; 93005; 99222; 99231; 99232; 99238; 99284; A9270-GY; G0480

== ENCOUNTER 2018-01-19 12:34 | Emergency (ER) | payer MEDICARE, MEDICAID ==
--- NOTE | 2018-01-19 15:11 | UC ---
Complaint Female HPI - HPI Summary HPI Summary: 52-year-old woman comes in with a chief complaint of vaginal discharge. Going on for months. It started after being with a partner with unprotected sex. She seen her primary care doctor and they tried to treat her with heat topical yeast medication and patient still having discharge and discomfort. Patient also has a rash underneath the breasts. That's also been going on for months. She is not tried any antifungal's or creams. She did say daily multiple times a day does not make the rash any better. No fevers or chills she feels well otherwise. No pain. - History Of Current Complaint Chief Complaint: UCSTDScreening Stated Complaint: PERSONAL Time Seen by Provider: 01/19/18 14:36 Hx Last Menstrual Period: april 29 Pain Intensity: 0 - Allergies/Home Medications Allergies/Adverse Reactions: Allergies Allergy/AdvReac Type Severity Reaction Status Date / Time aspirin Allergy Unknown Verified 01/19/18 13:14 Reaction Details Cephalosporins Allergy Rash Verified 01/19/18 13:14 orange Allergy Swelling Verified 01/19/18 13:14 orange juice Allergy Swelling Verified 01/19/18 13:14 amoxicillin AdvReac Nausea And Verified 01/19/18 13:14 Vomiting Tetracyclines AdvReac Nausea And Verified 01/19/18 13:14 Vomiting Home Medications: Home Medications Rosuvastatin Calcium [Crestor] 5 mg PO DAILY 01/19/18 [History Confirmed ] PMH/Surg Hx/FS Hx/Imm Hx Endocrine History: Diabetes Psychological History: Schizophrenia Other History Of: Negative For: HIV, Hepatitis B, Hepatitis C, Anticoagulant Therapy - Surgical History Surgical History: Yes Surgery Procedure, Year, and Place: tubal ligation - Family History Known Family History: Positive: Cardiac Disease, Hypertension, Diabetes - Social History Alcohol Use: None Substance Use Type: None Smoking Status (MU): Never Smoked Tobacco Amount Used/How Often: states that she smoked one cigarette when she was 16 yrs. old Have You Smoked in the Last Year: No - Immunization History Most Recent Influenza Vaccination: this flu season ([id number]) Most Recent Pneumonia Vaccination: unknown Review of Systems Constitutional: Negative Skin: Other - rash under breasts and in groin Eyes: Negative ENT: Negative Respiratory: Negative Cardiovascular: Negative Gastrointestinal: Negative Genitourinary: Vaginal/Penile Burning, Vaginal/Penile Itching, Vaginal/Penile Discharge Motor: Negative Neurovascular: Negative Musculoskeletal: Negative Neurological: Negative Psychological: Negative Is Patient Immunocompromised?: No All Other Systems Reviewed And Are Negative: Yes Physical Exam Triage Information Reviewed: Yes Appearance: Well-Appearing, No Pain Distress, Well-Nourished Vital Signs: Initial Vital Signs Temp 98.3 F 01/19/18 13:09 Pulse 77 01/19/18 13:09 Resp 18 01/19/18 13:09 BP 132/83 01/19/18 13:09 Pulse Ox 99 01/19/18 13:09 Vital Signs Reviewed: Yes Eye Exam: Normal Neck exam: Normal Neck: Positive: Supple Respiratory Exam: Normal Respiratory: Positive: Lungs clear, Normal breath sounds, No respiratory distress Cardiovascular: Positive: RRR Abdomen Description: Positive: Nontender, Soft Pelvic Exam: Positive: Other - There is carl and white discharge from the vagina. No lesions seen. No bleeding. Samples were taken. Musculoskeletal: Positive: Strength Intact, ROM Intact Neurological: Positive: Alert, Muscle Tone Normal Psychological Exam: Normal Psychological: Positive: Age Appropriate Behavior Skin: Positive: Other - rash under breasts and groin which appears to be yeact Complaint Female Dx - Course Course Of Treatment: Patient reports she is argument checked for HIV and hepatitis and syphilis by blood work and that was all negative. The plan today is to treat her with Diflucan and an anti-yeast pallor and metronidazole for possible bacterial vaginitis. We will repeat cultures to determine if she needs to be treated for other causes. Follow-up with primary care doctor recheck sooner if worse. - Differential Dx/Diagnosis Provider Diagnoses: YEAST INFECTION OF BREASTS AND GROIN. VAGINAL DISCHARGE. Discharge - Sign-Out/Discharge Documenting (check all that apply): Patient Departure All imaging exams completed and their final reports reviewed: No Studies - Discharge Plan Condition: Stable Disposition: HOME Prescriptions: Fluconazole [Diflucan 150 MG (NF)] 150 mg PO ONCE #2 tab metroNIDAZOLE [Flagyl] 500 mg PO BID #14 tablet Tolnaftate [Tinactin] 1 applic TOPICAL BID #108 gm Patient Education Materials: Yeast Infection (ED), Vaginitis (ED) Referrals: Jason Bianchi MD [Primary Care Provider] - Additional Instructions: FOLLOW UP WITH YOUR DOCTOR. GET RECHECKED FOR ANY WORSENING OF YOUR CONDITION OR QUESTIONS OR CONCERNS. - Billing Disposition and Condition Condition: STABLE Disposition: Home
[2018-01-19 16:06] VITALS: BP 128/88
--- NOTE | 2018-01-20 20:35 | UC ---
- Progress Note Progress Note: Urine culture shows 75-100,000 cfu E. coli. Patient had no UTI symptoms at time of visit therefore treatment is not indicated at this time. Gonorrhea and chlamydia testing negative. Positive for Trichimonas vaginalis and garnerella. Patient was placed on 7 day course of metronidazole which should treat effectively. No change in treatment plan. Discharge - Sign-Out/Discharge Documenting (check all that apply): Post-Discharge Follow Up All imaging exams completed and their final reports reviewed: No Studies - Discharge Plan Condition: Stable Disposition: HOME Prescriptions: Fluconazole [Diflucan 150 MG (NF)] 150 mg PO ONCE #2 tab metroNIDAZOLE [Flagyl] 500 mg PO BID #14 tablet Tolnaftate [Tinactin] 1 applic TOPICAL BID #108 gm Patient Education Materials: Yeast Infection (ED), Vaginitis (ED) Referrals: Jason Bianchi MD [Primary Care Provider] - Additional Instructions: FOLLOW UP WITH YOUR DOCTOR. GET RECHECKED FOR ANY WORSENING OF YOUR CONDITION OR QUESTIONS OR CONCERNS. - Billing Disposition and Condition Condition: STABLE Disposition: Home
--- NOTE | 2018-01-21 16:38 | UC ---
- Progress Note Progress Note: As addressed in previous progress note - pt had not UTI symptoms at her visit, but has a positive urine culture. No treatment indicated for asymptomatic UTI. Please call her to make sure she is feeling better. If she has UTI symptoms, will rx for anbx. Discharge - Sign-Out/Discharge Documenting (check all that apply): Post-Discharge Follow Up All imaging exams completed and their final reports reviewed: No Studies - Discharge Plan Condition: Stable Disposition: HOME Prescriptions: Fluconazole [Diflucan 150 MG (NF)] 150 mg PO ONCE #2 tab metroNIDAZOLE [Flagyl] 500 mg PO BID #14 tablet Tolnaftate [Tinactin] 1 applic TOPICAL BID #108 gm Patient Education Materials: Yeast Infection (ED), Vaginitis (ED) Referrals: Jason Bianchi MD [Primary Care Provider] - Additional Instructions: FOLLOW UP WITH YOUR DOCTOR. GET RECHECKED FOR ANY WORSENING OF YOUR CONDITION OR QUESTIONS OR CONCERNS. - Billing Disposition and Condition Condition: STABLE Disposition: Home
--- NOTE | 2018-01-21 18:12 | UC ---
- Progress Note Progress Note: Pt was contacted by nursing staff. She has been having burning with urination for the last 3 days. Therefore will rx for Macrobid as this is sensitive. Discharge - Sign-Out/Discharge Documenting (check all that apply): Post-Discharge Follow Up All imaging exams completed and their final reports reviewed: No Studies - Discharge Plan Condition: Stable Disposition: HOME Prescriptions: Fluconazole [Diflucan 150 MG (NF)] 150 mg PO ONCE #2 tab metroNIDAZOLE [Flagyl] 500 mg PO BID #14 tablet Nitrofurantoin Monohyd/M-Cryst [Macrobid 100 mg Capsule] 100 mg PO BID #10 cap Tolnaftate [Tinactin] 1 applic TOPICAL BID #108 gm Patient Education Materials: Yeast Infection (ED), Vaginitis (ED) Referrals: Jason Bianchi MD [Primary Care Provider] - Additional Instructions: FOLLOW UP WITH YOUR DOCTOR. GET RECHECKED FOR ANY WORSENING OF YOUR CONDITION OR QUESTIONS OR CONCERNS. - Billing Disposition and Condition Condition: STABLE Disposition: Home
== END 2018-01-19 15:30 | disposition home or self-care (01) ==
LOC: UCEAST 12:34
DX: B37.2 Candidiasis of skin and nail (principal); N89.8 Other specified noninflammatory disorders of vagina; Z88.6 Allergy status to analgesic agent; Z88.1 Allergy status to other antibiotic agents; Z88.0 Allergy status to penicillin
CPT/HCPCS: 81003; 87077; 87086; 87186; 87480; 87491; 87510; 87591; 87661; 99212; G0463

== ENCOUNTER 2018-06-25 20:04 | Emergency (ER) | payer MEDICARE, MEDICAID ==
--- NOTE | 2018-06-25 20:18 | UC ---
Dental HPI - HPI Summary HPI Summary: 53 y/o female PMHX HTN, DM type I, presents to the urgent care accompany by roommate c/o left lower jaw pain radiating to the left ear or left ear pain radiating to the jaw since last night. Pt w/ PMHX of Schizoaeffective disorder in multiple Psychiatric medications. Pain is 9/10 she has taken Tylenol PO and applied Oragel w/o improvement of pain. Pain now is 9/10 throbbing. She states she can only take Tylenol for pain. She states she is allergic to ASA, Ibuprofen. Last dose of Tylenol 500mg was around 45min ago. Pt remove her denture since roommates told her dentures don't fit properly. She has only eaten a bowel of cereals. Pt denies SOB, dizziness, chest pain, abdominal pain, N/V/D. Roommate states Pt is in insulin and on multiple medication and she is concerned that she doesn't have proper control on her medications. - History of Current Complaint Chief Complaint: UCGeneralIllness Stated Complaint: JAW COMPLAINT Time Seen by Provider: 06/25/18 20:16 Hx Obtained From: Patient Hx Last Menstrual Period: april 29 ?: No Onset/Duration: Gradual Onset, Lasting Days - 1 days, Worse Since - this morning Severity: Severe Pain Intensity: 9 Pain Scale Used: 0-10 Numeric Aggravating Factor(s): Chewing Alleviating Factor(s): OTC Meds - tylenol PO - Allergies/Home Medications Allergies/Adverse Reactions: Allergies Allergy/AdvReac Type Severity Reaction Status Date / Time aspirin Allergy Unknown Verified 06/25/18 20:16 Reaction Details Cephalosporins Allergy Rash Verified 06/25/18 20:16 orange Allergy Swelling Verified 06/25/18 20:16 orange juice Allergy Swelling Verified 06/25/18 20:16 amoxicillin AdvReac Nausea And Verified 06/25/18 20:16 Vomiting Tetracyclines AdvReac Nausea And Verified 06/25/18 20:16 Vomiting PMH/Surg Hx/FS Hx/Imm Hx Previously Healthy: Yes Endocrine History: Diabetes Cardiovascular History: Hypertension Other Psychological History: Schizoaffective disorder Other History Of: Negative For: HIV, Hepatitis B, Hepatitis C, Anticoagulant Therapy - Surgical History Surgical History: Yes Surgery Procedure, Year, and Place: tubal ligation - Family History Known Family History: Positive: Cardiac Disease, Hypertension, Diabetes - Social History Occupation: Disabled Lives: Dormitory/Roommates Alcohol Use: None Substance Use Type: None Smoking Status (MU): Never Smoked Tobacco Amount Used/How Often: states that she smoked one cigarette when she was 16 yrs. old Have You Smoked in the Last Year: No - Immunization History Most Recent Influenza Vaccination: this flu season ([id number]) Most Recent Pneumonia Vaccination: unknown Review of Systems All Other Systems Reviewed And Are Negative: Yes Constitutional: Positive: Negative Skin: Positive: Negative Eyes: Positive: Negative ENT: Positive: Other - left lower jaw pain radiating to the left ear Respiratory: Positive: Negative Cardiovascular: Positive: Negative Gastrointestinal: Positive: Negative Genitourinary: Positive: Negative Motor: Positive: Negative Neurovascular: Positive: Negative Musculoskeletal: Positive: Negative Neurological: Positive: Negative Psychological: Positive: Negative Is Patient Immunocompromised?: No Physical Exam - Summary Physical Exam Summary: Vital Signs Reviewed: Yes General: well developed, well nourished old thin female sitting in the examining table w/o any apparent mild pain distress. Eyes: Positive: Conjunctiva Clear - PERRLA, EOMI, fundi grossly normal ENT: Positive: Normal ENT inspection, Hearing grossly normal, Pharynx normal, gums pink and no erythema observed and non tender on palpation . LF TM impacted w/ cerumen unable to visualize TM. Rt external l ear canal clear, TM WNL, no maxillary or frontal sinus tenderness on percussion. mild anterior cervical lymphadenopathy. Dental Exam: Normal Neck: Positive: Supple, Nontender, No Lymphadenopathy Respiratory: Positive: Chest non-tender, Lungs clear, Normal breath sounds Cardiovascular: Positive: RRR, No Murmur, Pulses Normal, Brisk Capillary Refill Abdomen Description: Positive: Nontender, No Organomegaly, Soft. Negative: CVA Tenderness (R), CVA Tenderness (L) Bowel Sounds: Positive: Present Musculoskeletal Exam: Normal Musculoskeletal: Positive: Strength Intact, ROM Intact, No Edema Neurological Exam: Normal Neurological: Positive: Alert, Muscle Tone Normal, Other: - -Neuro: A&O x4, GCS 15, CN II-XII intact, no focal neuro deficits, normal [id number] or heel-to- burleson testing. Gait is normal, Psychological Exam: Normal Skin Exam: Normal Triage Information Reviewed: Yes Vital Signs: Initial Vital Signs Temp 98.5 F 06/25/18 20:09 Pulse 128 06/25/18 20:09 Resp 22 06/25/18 20:09 Pulse Ox 100 06/25/18 20:09 Dental Complaint Course/Dx - Course Course Of Treatment: 53 y/o female PMHX HTN, DM type I, presents to the urgent care accompany by roommate c/o left lower jaw pain radiating to the left ear or left ear pain radiating to the jaw since last night. Pt w/ PMHX of Schizoaeffective disorder in multiple Psychiatric medications. Pain is 9/10 she has taken Tylenol PO and applied Oragel w/o improvement of pain. Pain now is 9/10 throbbing. She states she can only take Tylenol for pain. She states she is allergic to ASA, Ibuprofen. Last dose of Tylenol 500mg was around 45min ago. Pt remove her denture since roommates told her dentures don't fit properly. She has only eaten a bowel of cereals. Pt denies SOB, dizziness, chest pain, abdominal pain, N/V/D. Roommate states Pt is in insulin and on multiple medication and she is concerned that she doesn't have proper control on her medications. Hx obtained. Pt afebrile and tachycardic at 128bpm, and hemodynaically stable, A&OX3, but in pain distress. On examination Pt w/ left cerumen impaction,Gums are WNL. FS. Ear irrigation performed to r/o ear infection since pain can be from that source. Pt tolerated well ear irrigation performed by nurse. LF TM dull and yellowish, no light reflex. Possible otitis media. However, Pt had an episode of projectile vomiting and felt dizziness. Pt given Zofran PO. and placed in [place] position. EKG: Sinus Bradycardia at 57bpm, No ST elevation or depression as per DR Rutledge. EKG compared w/ previous one and similar. Pt's symptoms discussed w/ Dr Rutledge since I think Pt needs a higher level of care since Pt is insulin dependent DM and now w/ dizziness. Pt need further work up. Dr Rutledge agreed Pt should be transferred to the [facility] by ambulance. I spoke to DR Hector at [facility] who [id number] the patient. Pt urinated in her examining table when EMS was about to put her in the stretches. Pt left the clinic via ambulance hemodynamically stable, A&OX3 - Differential Dx/Diagnosis Differential Diagnosis/Dx: Dental Abscess, Fractured Tooth, Peridontic Disease, Peritonsillar Abcess, TMJ Syndrome, Tonsillitis Provider Diagnosis: Dizziness, Jaw pain Discharge - Sign-Out/Discharge Documenting (check all that apply): Patient Departure - via ambulance All imaging exams completed and their final reports reviewed: No Studies - Discharge Plan Condition: Stable Disposition: TRANS HIGHER LVL OF CARE FAC Referrals: Jason Bianchi MD [Primary Care Provider] - Additional Instructions: I think you need a higher level or care for your presenting symptoms. I highly recommend you to go to the ER for further evaluation and treatment. The risks of not going can be , sepsis, heart attack, etc. I spoke to the ER attending Dr Hector. They are expecting you. - Billing Disposition and Condition Condition: STABLE Disposition: Trans Higher Lvl of Care Fac
[2018-06-25] MEDS ORDERED: Clindamycin CAP* 150 MG PO ONE (20:53)
[2018-06-25] MEDS ORDERED: Lidocaine 2% VISCOUS* 15 ML UDC SWISH SPIT ONE (20:53)
[2018-06-25] MEDS ORDERED: Famotidine TAB* 20 MG PO ONE (21:01)
[2018-06-25] MEDS ORDERED: Ondansetron ODT TAB* 4 MG PO ONE (21:01)
[2018-06-25 21:29] VITALS: BP 135/73
== END 2018-06-25 22:05 | disposition short-term general hospital (02) ==
LOC: UCEAST 20:04
DX: R68.84 Jaw pain (principal); R42 Dizziness and giddiness; R00.1 Bradycardia, unspecified; I10 Essential (primary) hypertension; E11.9 Type 2 diabetes mellitus without complications; F20.9 Schizophrenia, unspecified; F06.2 Psychotic disorder with delusions due to known physiological condition; Z88.6 Allergy status to analgesic agent; Z88.3 Allergy status to other anti-infective agents; Z88.8 Allergy status to other drugs, medicaments and biological substances
CPT/HCPCS: 93005; 99213; A9270-GY; G0463

== ENCOUNTER 2018-06-25 22:24 | Emergency (ER) | payer MEDICARE, MEDICAID ==
--- NOTE | 2018-06-25 22:35 | ED ---
Neck Pain - HPI Summary HPI Summary: A 53 y/o F presents to ED from [facility] with c/o constant L-sided jaw pain onset yesterday afternoon. The pain radiates to her L ear and she has limited ROM of her neck. She does wear dentures. Associated sx: lightheadedness near-syncope, RIOS, eyes are burning. Denies CP. PMHx: asthma, breathing is at baseline; LE neuropathy. No previous episodes of this type of jaw pain. Aggravating factors: chewing, neck movement. Non-smoker, no ETOH. - History of Current Complaint Stated Complaint: "JAW COMPLAINT" PER EMS Time Seen by Provider: 06/25/18 22:27 Hx Obtained From: Patient Hx Last Menstrual Period: april 29 Onset/Duration Of Injury/Symptoms: Days Mechanism Of Injury: No Known Trauma Timing: Constant, Lasting Days Onset/Duration: Started days ago, Still Present Severity Initially: Moderate Severity Currently: Severe Pain Intensity: 10 Pain Scale Used: 0-10 Numeric Location: Discrete At: - L jaw Character: Sharp Aggravating Factors: Movement, Other: - chewing Associated Signs & Symptoms: Positive: Nuchal Rigity, Headache - Allergies/Home Medications Allergies/Adverse Reactions: Allergies Allergy/AdvReac Type Severity Reaction Status Date / Time aspirin Allergy Unknown Verified 06/25/18 20:16 Reaction Details Cephalosporins Allergy Rash Verified 06/25/18 20:16 orange Allergy Swelling Verified 06/25/18 20:16 orange juice Allergy Swelling Verified 06/25/18 20:16 amoxicillin AdvReac Nausea And Verified 06/25/18 20:16 Vomiting Tetracyclines AdvReac Nausea And Verified 06/25/18 20:16 Vomiting PMH/Surg Hx/FS Hx/Imm Hx Previously Healthy: No Endocrine/Hematology History: Reports: Hx Diabetes, Hx Thyroid Disease Denies: Hx Anticoagulant Therapy Cardiovascular History: Reports: Hx Deep Vein Thrombosis, Hx Hypercholesterolemia Denies: Hx Congestive Heart Failure, Hx Hypertension, Hx Myocardial Infarction, Hx Pacemaker/ICD Respiratory History: Reports: Hx Asthma Denies: Hx Chronic Obstructive Pulmonary Disease (COPD), Hx Lung Cancer, Hx Pneumonia, Hx Pulmonary Embolism GI History: Reports: Hx Ulcer History: Denies: Hx Dialysis, Hx Renal Disease Sensory History: Denies: Hx Contacts or Glasses, Hx Hearing Aid Opthamlomology History: Denies: Hx Contacts or Glasses Neurological History: Denies: Hx Dementia, Hx Migraine, Hx Seizures, Hx Transient Ischemic Attacks (TIA) Psychiatric History: Reports: Hx Inpatient Treatment, Hx Community Mental Health Tx, Hx Schizophrenia, Hx Suicide Attempt Denies: Hx Anxiety, Hx Eating Disorder, Hx Depression, Hx Bipolar Disorder, Hx of Violent Episodes Against Others - Cancer History Hx Chemotherapy: No Hx Radiation Therapy: No - Surgical History Surgery Procedure, Year, and Place: tubal ligation Infectious Disease History: Denies: Hx Hepatitis, Hx Human Immunodeficiency Virus (HIV) - Family History Known Family History: Positive: Cardiac Disease, Hypertension, Diabetes - Social History Occupation: Disabled Lives: Alone Alcohol Use: None Hx Substance Use: No Substance Use Type: Reports: None Hx Tobacco Use: No Smoking Status (MU): Never Smoked Tobacco Amount Used/How Often: states that she smoked one cigarette when she was 16 yrs. old Have You Smoked in the Last Year: No Review of Systems Negative: Fever Eyes: Other - pos: eyes burning Positive: Ear Ache - L, Other - pos: jaw pain radiating to ear Negative: Chest Pain Positive: Decreased ROM - neck Neurological: Other - pos: lightheadedness Positive: Headache, Syncope - near-syncope All Other Systems Reviewed And Are Negative: Yes Physical Exam - Summary Physical Exam Summary: Appearance: Well-appearing, Well-nourished, lying in bed comfortably Skin: Warm, dry, no obvious rash Eyes: sclera anicteric, no conjunctival pallor ENT: Some irrigation of buccal mucosa on L. Patient is edentulous. Did not see any expression of pus from the region of Stensons duct on palpation of jaw. Neck: Supple, tenderness overlying L mandible extending to sub-mandibular area Respiratory: Clear to auscultation, no signs of respiratory distress Cardiovascular: Normal S1, S2. No murmurs. Normal distal pulses in tibial and radial bilaterally. Abdomen: Soft, nontender, normal active bowel sounds present Musculoskeletal: Normal, Strength/ROM Intact Neurological: A&Ox3, awake and alert, mentation is normal, speech is fluent and appropriate Psychiatric: affect is normal, does not appear anxious or depressed Triage Information Reviewed: Yes Vital Signs Reviewed: Yes Diagnostics - Laboratory Result Diagrams: 06/25/18 22:42 06/25/18 22:42 Lab Statement: Any lab studies that have been ordered have been reviewed, and results considered in the medical decision making process. - EKG 2250 Cardiac Rate: Bradycardia - 55 bpm EKG Rhythm: Sinus Bradycardia Summary of EKG Findings: Nonspecific IVCD, no ischemic changes Neck Course/Dx - Course Course Of Treatment: Pt is a 53 y/o F presenting with constant L-sided jaw pain onset yesterday afternoon. The pain radiates to her L ear and she has limited ROM of her neck. She does wear dentures. Associated sx: lightheadedness near- syncope, RIOS, eyes are burning. Denies CP. She was sent over from urgent care with a concern that this could be a manifestation of a acute coronary syndrome. However that clearly seems not in case. Her EKG is unremarkable, troponin is negative, and moreover her history and physical exam is much more consistent with a primary problem in the jaw and upper neck. Physical exam is somewhat reassuring in terms of lack of significant swelling or other signs of inflammation here. This does not seem to be a case of Anjum's angina for example. I suspect she either has an odontogenic infection or less likely some type of sialitis. In any event, she will be treated with analgesics and appropriate antibiotic coverage. EKG shows sinus tha and nonspecific IVCD, no icschemic changes. - Diagnoses Differential Dx/HQI/PQRI: Positive: Adenitis, Torticollis, Other - Acute coronary syndrome, sialitis Provider Diagnoses: Jaw pain Discharge - Sign-Out/Discharge Documenting (check all that apply): Patient Departure - D/C Patient Received Moderate/Deep Sedation with Procedure: No - Discharge Plan Condition: Good Disposition: HOME Prescriptions: Clindamycin Cap(NF) [Clindamycin Cap 300 mg Cap(NF)] 300 mg PO TID #30 cap oxyCODONE/Acetamin 5/325 MG* [Percocet 5/325 TAB*] 2 tab PO Q4H PRN #10 tab MDD 4 tabs PRN Reason: Pain Patient Education Materials: Dental Abscess (ED) Referrals: Jason Bianchi MD [Primary Care Provider] - Additional Instructions: I think the problem is related either to your jaw or to an infection in a salivary gland. The antibiotics should help if that is the case. Alternatively it could be a problem in the muscles about the upper neck and jaw, that should get better with time. Check in with your regular doctor next week if you are not better. - Billing Disposition and Condition Condition: GOOD Disposition: Home - Attestation Statements Document Initiated by Marbinibvineet: Yes Documenting Scribe: Fe Bowden Provider For Whom Karyn is Documenting (Include Credential): Dr. Jose Husain MD Scribe Attestation: I, Fe Bowden, scribed for Dr. Jose Husain MD on 06/26/18 at 0350. Scribe Documentation Reviewed: Yes Provider Attestation: The documentation as recorded by the karyn, Fe Bowden accurately reflects the service I personally performed and the decisions made by me, Dr. Jose Husain MD Status of Scribe Document: Viewed
[2018-06-25] MEDS ORDERED: Clindamycin CAP* 150 MG PO ONE (22:36)
[2018-06-25] MEDS ORDERED: oxyCODONE/Acetamin 5/325 MG* TAB PO ONE (22:36)
[2018-06-25 22:50] LABS: ABS Basophils 0 10^3/ul (0-0.2); ABS Eosinophils 0.1 10^3/ul (0-0.6); ABS Lymphocytes 1.3 10^3/ul (1.0-4.8); ABS Monocytes 0.6 10^3/ul (0-0.8); ABS Neutrophils 4.6 10^3/ul (1.5-7.7); ABS Nucleated RBC 0 10^3/ul; Eosinophil % 2.2 %; Hematocrit 38 % (33-41); Hemoglobin 12.9 g/dL (12.0-16.0); Lymphocyte % 19.2 %; Mean Corpuscular HGB Conc 34 g/dL (31-36); Mean Corpuscular Hemoglobin 30 pg (27-31); Mean Corpuscular Volume 90 fL (80-97); Mean Platelet Volume 7.9 fL (7.4-10.4); Nucleated Red Blood Cells % 0; Platelet Count 177 10^3/uL (150-450); Red Blood Count 4.23 10^6 /uL (3.70-4.87); Red Cell Distribution Width 15 % (10.5-15); White Blood Count 6.6 10^3/uL (3.5-10.8)
[2018-06-25 23:11] LABS: Albumin 4.1 g/dL (3.2-5.2); Albumin/Globulin Ratio 1.9 (1-3); BUN/Creatinine Ratio 14.6 (8-20); Calcium 9.2 mg/dL (8.6-10.3); EGFR African American 79.7 (>60); EGFR Non-African American 65.8 (>60); Globulin 2.2 g/dL (2-4); Potassium 3.9 mmol/L (3.5-5.0); Total Bilirubin 0.3 mg/dL (0.2-1.0); Total Protein 6.3 g/dL (6.4-8.9)
[2018-06-25] MEDS ORDERED: Ondansetron ODT TAB* 4 MG SL ONE (23:30)
[2018-06-25 23:51] LABS: Urine Appearance Cloudy; Urine Bilirubin Negative (Negative); Urine Blood Negative (Negative); Urine Color Yellow; Urine Glucose Negative (Negative); Urine Ketones Trace (Negative); Urine Nitrite Negative (Negative); Urine Protein Negative (Negative); Urine Specific Gravity 1.019 (1.010-1.030); Urine Urobilinogen Negative (Negative)
[2018-06-26 00:40] VITALS: BP 112/60
== END 2018-06-26 00:38 | disposition home or self-care (01) ==
LOC: ED 22:24
DX: R68.84 Jaw pain (principal); R00.1 Bradycardia, unspecified; M54.2 Cervicalgia; R42 Dizziness and giddiness; R55 Syncope and collapse; R51 Headache; H57.89 Other specified disorders of eye and adnexa; E11.9 Type 2 diabetes mellitus without complications; E07.9 Disorder of thyroid, unspecified; E78.00 Pure hypercholesterolemia, unspecified; J45.909 Unspecified asthma, uncomplicated; Z86.718 Personal history of other venous thrombosis and embolism; Z88.6 Allergy status to analgesic agent; Z88.1 Allergy status to other antibiotic agents; Z88.0 Allergy status to penicillin; Z91.018 Allergy to other foods; I10 Essential (primary) hypertension; F20.9 Schizophrenia, unspecified; F06.2 Psychotic disorder with delusions due to known physiological condition
CPT/HCPCS: 36415; 80053; 81003; 84484; 85025; 93005; 99213; 99282; A9270-GY; G0463

== ENCOUNTER 2018-07-08 13:49 | Inpatient (IN) | payer MEDICARE, MEDICAID ==
[2018-07-08] MEDS ORDERED: NS 0.9% 1000 ML** 1,000 ML IV ONE (13:54)
--- NOTE | 2018-07-08 13:59 | ED ---
Neurological HPI - HPI Summary HPI Summary: 53 year old F brought in by [facility] ambulance to [facility] complains of slurred speech and right arm numbness since 0930 today. Symptoms aggravated by nothing. Symptoms alleviated by nothing. Patient reports headache. Patient denies fever, chills, erythema of eyes, sore throat, chest pain, shortness of breath, cough, abdominal pain, nausea, vomiting, dysuria, hematuria, myalgia, edema, rash, and dizziness. Rose Ayala called in field by EMS at 1341. EMS reports that patient's last known normal was 0900. Patient was met at [facility] upon arrival to ED at [address] Bee, neurology. Patient sent to CT at 1351. Per patient, she noticed that she started walking funny at 0930 and that her words were slurry. She was holding her cat and dropped the cat. Patiet states she has neuropathy from her diabetes. - History of Current Complaint Stated Complaint: CODE HARSHAL PER EMS Hx Obtained From: Patient, EMS Onset/Duration: Started hours ago - 09:00 today, Still Present Timing: Constant Aggravating: Nothing Alleviating: Nothing Associated Signs and Symptoms: Positive: Negative - fever, chills, erythema of eyes, sore throat, chest pain, shortness of breath, cough, abdominal pain, nausea, vomiting, dysuria, hematuria, myalgia, edema, rash, and dizziness, Headache - Additional Pertinent History Primary Care Physician: [id number] - Allergy/Home Medications Allergies/Adverse Reactions: Allergies Allergy/AdvReac Type Severity Reaction Status Date / Time aspirin Allergy Unknown Verified 06/25/18 20:16 Reaction Details Cephalosporins Allergy Rash Verified 06/25/18 20:16 orange Allergy Swelling Verified 06/25/18 20:16 orange juice Allergy Swelling Verified 06/25/18 20:16 amoxicillin AdvReac Nausea And Verified 06/25/18 20:16 Vomiting Tetracyclines AdvReac Nausea And Verified 06/25/18 20:16 Vomiting Home Medications: Home Medications Acetaminophen [Acetaminophen Extra Strength] 1,000 mg PO BID PRN 07/08/18 [ History Confirmed 07/08/18] Albuterol inh POWDER (NF) [Proair Respiclick] 2 puff INH Q4HR PRN 07/08/18 [ History Confirmed 07/08/18] Benzonatate CAP* [Tessalon 100 MG CAP*] 200 mg PO TID PRN 07/08/18 [History Confirmed 07/08/18] Budesonide/Formote 160/4.5(NF) [Symbicort 160/4.5 (NF)] 2 puff INH BID 07/08/18 [History Confirmed 07/08/18] CloZAPine TAB* 300 mg PO BEDTIME 07/08/18 [History Confirmed 07/08/18] Cyclobenzaprine TAB* [Flexeril 10 MG TAB*] 10 mg PO TID PRN 07/08/18 [History Confirmed 07/08/18] Docusate CAP* [Colace Cap*] 100 mg PO BID 07/08/18 [History Confirmed 07/08/18] Fluticasone NASAL SPRAY 50MCG* [Flonase NASAL SPRAY 50MCG*] 2 spray BOTH NARES DAILY 07/08/18 [History Confirmed 07/08/18] Insulin GLARGINE(*) [Lantus(*)] 20 units SUBCUT DAILY 07/08/18 [History Confirmed 07/08/18] Ketoconazole 2 % CREAM (NF) [Nizoral 2% CREAM (NF)] 1 applic TOPICAL BID PRN 02/15 [History Confirmed 07/08/18] Levothyroxine TAB* [Synthroid 88 MCG TAB*] 88 mcg PO DAILY 07/08/18 [History Confirmed 07/08/18] Lurasidone(*) [Latuda] 80 mg PO QPM 07/08/18 [History Confirmed 07/08/18] Multivitamins/Minerals TAB* [Theragran/minerals TAB*] 1 tab PO DAILY 07/08/18 [ History Confirmed 07/08/18] Pantoprazole TAB (NF) [Protonix TAB (NF)] 20 - 40 mg PO DAILY 07/08/18 [History Confirmed 07/08/18] Tizanidine HCl 6 - 12 mg PO BID MDD 24 mg 07/08/18 [History Confirmed 07/08/18] diPHENhydraMINE PO* [Benadryl PO 25 MG TAB*] 25 mg PO TID PRN 07/08/18 [History Confirmed 07/08/18] traMADol TAB* [Ultram*] 50 - 100 mg PO Q8HR PRN 07/08/18 [History Confirmed 04/ 11/19] PMH/Surg Hx/FS Hx/Imm Hx Previously Healthy: No Endocrine/Hematology History: Reports: Hx Diabetes, Hx Thyroid Disease Denies: Hx Anticoagulant Therapy Cardiovascular History: Reports: Hx Deep Vein Thrombosis, Hx Hypercholesterolemia Denies: Hx Congestive Heart Failure, Hx Hypertension, Hx Myocardial Infarction, Hx Pacemaker/ICD Respiratory History: Reports: Hx Asthma Denies: Hx Chronic Obstructive Pulmonary Disease (COPD), Hx Lung Cancer, Hx Pneumonia, Hx Pulmonary Embolism GI History: Reports: Hx Ulcer History: Denies: Hx Dialysis, Hx Renal Disease Sensory History: Denies: Hx Contacts or Glasses, Hx Hearing Aid Opthamlomology History: Denies: Hx Contacts or Glasses Neurological History: Denies: Hx Dementia, Hx Migraine, Hx Seizures, Hx Transient Ischemic Attacks (TIA) Psychiatric History: Reports: Hx Inpatient Treatment, Hx Community Mental Health Tx, Hx Schizophrenia, Hx Suicide Attempt Denies: Hx Anxiety, Hx Eating Disorder, Hx Depression, Hx Bipolar Disorder, Hx of Violent Episodes Against Others - Cancer History Hx Chemotherapy: No Hx Radiation Therapy: No - Surgical History Surgery Procedure, Year, and Place: tubal ligation Infectious Disease History: Denies: Hx Hepatitis, Hx Human Immunodeficiency Virus (HIV) - Family History Known Family History: Positive: Cardiac Disease, Hypertension, Diabetes - Social History Alcohol Use: None Hx Substance Use: No Substance Use Type: Reports: None Hx Tobacco Use: No Smoking Status (MU): Never Smoked Tobacco Amount Used/How Often: states that she smoked one cigarette when she was 16 yrs. old Have You Smoked in the Last Year: No Review of Systems Negative: Fever, Chills Negative: Erythema Negative: Sore Throat Negative: Chest Pain Negative: Shortness Of Breath, Cough Negative: Abdominal Pain, Vomiting, Nausea Negative: dysuria, hematuria Negative: Myalgia, Edema Negative: Rash Neurological: Negative - Dizziness, Other - slurred speech, right arm weakness Positive: Headache All Other Systems Reviewed And Are Negative: Yes Physical Exam - Summary Physical Exam Summary: Constitutional: Well-developed, Well-nourished, Alert. (-) Distressed Skin: Warm, Dry HENT: Normocephalic; Atraumatic Eyes: Conjunctiva normal Neck: Musculoskeletal ROM normal neck. (-) JVD, (-) Stridor, (-) Tracheal deviation Cardio: Rhythm regular, rate normal, Heart sounds normal; Intact distal pulses; The pedal pulses are 2+ and symmetric. Radial pulses are 2+ and symmetric. (-) Murmur Pulmonary/Chest wall: Effort normal. (-) Respiratory distress, (-) Wheezes, (-) Rales Abd: Soft. (-) Tenderness, (-) Distension, (-) Guarding, (-) Rebound Musculoskeletal: (-) Edema Lymph: (-) Cervical adenopathy Neuro: Kauffman test is positive on the left. 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 She has slurred speech although she is edentulous. She has right leg drift and diminished sensation on the right Psych: Mood and affect Normal GCS: 15 Triage Information Reviewed: Yes Vital Signs Reviewed: Yes Diagnostics - Laboratory Result Diagrams: 07/08/18 14:32 07/08/18 14:32 Lab Statement: Any lab studies that have been ordered have been reviewed, and results considered in the medical decision making process. - Radiology CXR Radiology Interpretation Completed By: Radiologist Summary of Radiographic Findings: 1. Low lung volumes for this patient with associated subsegmental atelectasis. ED physician reviewed this report. - CT Brain CT Interpretation Completed By: Radiologist Summary of CT Findings: NO ACUTE INTRACRANIAL PATHOLOGY. PRELIMINARY FINDINGS WERE DISCUSSED WITH DR. CAMERON IN THE EMERGENCY DEPARTMENT AT. APPROXIMATELY 2: 14 PM ON JULY 08, 2018. ED physician has reviewed this report. - EKG 1416 Cardiac Rate: NL - 82 BPM EKG Rhythm: Sinus Rhythm Summary of EKG Findings: Non STEMI. TWI V1V2 - Additional Comments Diagnostic Additional Comments: Head CTA, per radiologist, shows 1. NO INTERNAL CAROTID ARTERY STENOSIS BY NASCET CRITERIA. 2. NO ANEURYSM, VASCULAR MALFORMATION, OCCLUSION, OR STENOSIS OF THE VISUALIZED INTRACRANIAL CIRCULATION. ED physician has reviewed this report. NIH Scale - NIH Scale Level of Consciousness: Alert/Keenly Responsive Ask Patient the Month and His/Her Age: Both Correct Ask Pt to Open/Close Eyes and Meat Slicer/Release Non-Paretic Hand: Both Correctly Best Gaze (Only Horizontal Eye Movement): Normal Visual Field Testing: No Visual Loss Facial Paresis-Pt to Smile & Close Eyes or Grimace Symmetry: Minor Paralysis Motor Function - Right Arm: Drifts LT 10 seconds Motor Function - Left Arm: No Drift-Holds 10 Seconds Motor Function - Right Leg: Drifts LT 10 seconds Motor Function - Left Leg: No Drift-Holds 10 Seconds Limb Ataxia-Must be out of Proportion to Weakness Present: Absent Sensory (Use Pinprick to Test Arms/Legs/Trunk/Face): Normal Best Language (Describe Picture, Name Items): No Aphasia Dysarthria (Read Several Words): Normal Extinction and Inattention: No Abnormality Total Score: 3 Course/Dx - Course Course Of Treatment: 53 year old F brought in by [facility] to [facility] complains of slurred speec, right arm numbness, headache since 0930 today. EMS reports that patient's last known normal was 0900. Patient sent to CT at 1351. Dr. Barker, radiology, reports CT at 1413. Brain CT shows NO ACUTE INTRACRANIAL PATHOLOGY. Head CTA, per radiologist, shows 1. NO INTERNAL CAROTID ARTERY STENOSIS BY NASCET CRITERIA. 2. NO ANEURYSM, VASCULAR MALFORMATION, OCCLUSION, OR STENOSIS OF THE VISUALIZED INTRACRANIAL CIRCULATION. CXR shows 1. Low lung volumes for this patient with associated subsegmental atelectasis. Labs. Patient will be admitted for stroke. - Diagnoses Provider Diagnoses: Stroke - Critical Care Time Critical Care Time: 30-74 min Discharge - Sign-Out/Discharge Documenting (check all that apply): Patient Departure - Discharge Plan Condition: Good Disposition: ADMITTED TO [facility] - Billing Disposition and Condition Condition: GOOD Disposition: Admitted to [facility] - Attestation Statements Document Initiated by Dae: Yes Documenting Scribe: Ramandeep Colvin Provider For Whom Dawit is Documenting (Include Credential): Samy Cameron MD Scribe Attestation: Ramandeep Mesa, scribed for Samy Cameron MD on 07/08/18 at 1807. Scribe Documentation Reviewed: Yes Provider Attestation: The documentation as recorded by the scribeRamandeep accurately reflects the service I personally performed and the decisions made by me, Samy Cameron MD Status of Scribe Document: Viewed
[2018-07-08] MEDS ORDERED: Iodixanol* (CONTRAST) 320 MG/ML 100 ML SDV IV ONE (14:15)
[2018-07-08 14:40] LABS: ABS Basophils 0 10^3/ul (0-0.2); ABS Eosinophils 0.1 10^3/ul (0-0.6); ABS Monocytes 0.4 10^3/ul (0-0.8); ABS Neutrophils 2.7 10^3/ul (1.5-7.7); ABS Nucleated RBC 0 10^3/ul; Eosinophil % 2.1 %; Hematocrit 42 % (33-41); Lymphocyte % 23.4 %; Mean Corpuscular HGB Conc 33 g/dL (31-36); Mean Corpuscular Hemoglobin 30 pg (27-31); Mean Corpuscular Volume 91 fL (80-97); Mean Platelet Volume 8.2 fL (7.4-10.4); Nucleated Red Blood Cells % 0; Platelet Count 151 10^3/uL (150-450); Red Blood Count 4.68 10^6 /uL (3.70-4.87); Red Cell Distribution Width 15 % (10.5-15); White Blood Count 4.2 10^3/uL (3.5-10.8)
[2018-07-08 14:50] LABS: Activated Partial Thrombo Time 26.1 seconds (26.0-36.3); INR 0.94 (0.77-1.02)
[2018-07-08] MEDS ORDERED: Clopidogrel TAB* 300 MG PO ONE (14:50)
[2018-07-08 15:17] LABS: Albumin 4.1 g/dL (3.2-5.2); Calcium 9.3 mg/dL (8.6-10.3); Potassium 3.8 mmol/L (3.5-5.0); Total Bilirubin 0.2 mg/dL (0.2-1.0)
[2018-07-08 15:23] LABS: Albumin/Globulin Ratio 1.8 (1-3); BUN/Creatinine Ratio 15.5 (8-20); EGFR African American 67.3 (>60); EGFR Non-African American 55.6 (>60); Globulin 2.3 g/dL (2-4); HDL Cholesterol 42.6 mg/dL; Total Protein 6.4 g/dL (6.4-8.9)
[2018-07-08] MEDS ORDERED: Dextrose 50% Syringe 50 ML* 25 GM/50 ML SYRINGE IV PUSH PRN (16:13)
[2018-07-08] MEDS: Insulin LISPRO* 1 UNITS UNIT SUBCUT SCH ×2 (16:54→21:18)
[2018-07-08] MEDS ORDERED: Albuterol HFA INHALER* 8 gm MDI INH PRN (16:56)
[2018-07-08] MEDS ORDERED: Benzonatate CAP* 100 MG PO PRN (16:56)
[2018-07-08] MEDS ORDERED: diPHENhydraMINE PO* 25 MG PO PRN (16:56)
[2018-07-08 17:15] LABS: Urine Appearance Clear; Urine Bilirubin Negative (Negative); Urine Blood Negative (Negative); Urine Color Straw; Urine Glucose Negative (Negative); Urine Ketones Negative (Negative); Urine Nitrite Negative (Negative); Urine Protein Negative (Negative); Urine Specific Gravity 1.016 (1.010-1.030); Urine Urobilinogen Negative (Negative)
[2018-07-08] MEDS: NS 0.9% 1000 ML** 1,000 ML IV SCH (18:22)
--- NOTE | 2018-07-08 19:36 | HP ---
CC: Dr. Bianchi; Dr. Bee * HISTORY AND PHYSICAL: DATE OF ADMISSION: 07/08/18 TIME OF EVALUATION: 3:30 p.m. PRIMARY CARE PROVIDER: Dr. Bianchi. CONSULTING NEUROLOGIST: Dr. Bee. CHIEF COMPLAINT: "My right side was weak." HISTORY OF PRESENT ILLNESS: Ms. Urban is a 53-year-old female with a past medical history of obesity, type 2 diabetes, schizoaffective disorder, pancreatitis, asthma, intellectual developmental disability, who presents to the emergency room with complaints of right-sided weakness. The patient is unclear about the timeline of her symptoms. She states that yesterday when she went to bed she was not feeling so well, but she cannot pinpoint exactly what was bothering her. As per ED note, the patient was woken up by her neighbor around 9 a.m. and appeared to be normal. She went back to sleep and her neighbor woke her up again at 10:45 and noticed garbled speech and right-sided weakness. At that time, EMS was called and a code carl was called from the field. In the emergency room, the patient's NIH Stroke Scale was 3 and she was deemed out of the window for tPA. At the time of my interview, the patient states that her speech is back to normal, but her right side does not feel "right." She states it is numb and the strength is not back yet. She denies chest pain, palpitations, shortness of breath, nausea, vomiting, diarrhea, or urinary complaints. There is no complaint of headache or visual changes. On 06/25/18, the patient was seen in the emergency room for left- sided jaw pain and at that point the impression was that she could have some sort of infection of a salivary gland and she was prescribed clindamycin and Percocet. The patient states that this problem is now resolved. PAST MEDICAL HISTORY: 1. Type 2 diabetes, diabetic neuropathy. 2. Obesity with a BMI of 39. 3. Schizoaffective disorder. 4. Pancreatitis. 5. Asthma. 6. Intellectual developmental disability. 7. History of right upper extremity DVT. MEDICATION LIST: 1. Acetaminophen 1000 mg p.o. b.i.d. as needed for pain or fever. 2. Albuterol HFA 2 puffs inhaled q.4 hours p.r.n. shortness of breath and wheezing. 3. Benzonatate 200 mg p.o. t.i.d. as needed for cough. 4. Symbicort 160/4.5 two puffs inhaled b.i.d. 5. Clozapine 300 mg p.o. at bedtime. 6. Cyclobenzaprine 10 mg p.o. t.i.d. as needed for pain. 7. Benadryl 25 mg p.o. t.i.d. as needed for allergy symptoms. 8. Colace 100 mg p.o. b.i.d. 9. Fluoxetine 40 mg p.o. daily. 10. Fluticasone nasal spray 50 mcg 2 sprays to both nares daily. 11. Lantus 20 units subcutaneously daily. 12. Ketoconazole 2% cream topical b.i.d. as needed for itching. 13. Levothyroxine 88 mcg p.o. daily. 14. [place] 900 mg p.o. at bedtime. 15. Latuda 80 mg p.o. at bedtime. 16. Milk of magnesia 30 mL p.o. q.6 hours p.r.n. constipation. 17. Metformin 1000 mg p.o. b.i.d. 18. Multivitamin 1 tablet p.o. daily. 19. Pantoprazole 20 to 40 mg p.o. daily. 20. Rosuvastatin 5 mg p.o. daily. 21. Temazepam 15 to 30 mg p.o. at bedtime. 22. Tizanidine 6 to 12 mg p.o. b.i.d. 23. Topiramate 100 mg p.o. b.i.d. 24. Tramadol 50 to 100 mg p.o. q.8 hours p.r.n. pain. ALLERGIES: To ASPIRIN, CEPHALOSPORINS, orange, AMOXICILLIN, and TETRACYCLINE. FAMILY HISTORY: As per the patient, she has multiple family members with history of diabetes, but she denies a family history of stroke. SOCIAL HISTORY: She denies tobacco, alcohol, or drug use. She lives in [place] with a roommate and surrogate decision maker is her son, Michael Townsend. His phone number is [phone]. REVIEW OF SYSTEMS: A 14-point review of systems was performed and all the pertinent negative and positive findings are in the HPI. PHYSICAL EXAMINATION GENERAL: The patient is an obese, middle-aged lady, lying in the ED stretcher, in no acute distress. VITAL SIGNS: Temperature 96.7, heart rate is 65, respiratory rate is 21, oxygen saturation is 98% on room air, blood pressure is 155/74. HEENT: Pupils are equal. Moist mucous membranes. CHEST: Breath sounds present bilaterally with no added sounds. CVS: Normal S1, S2. Regular rate and rhythm. ABDOMEN: Obese, soft, nontender, nondistended. Bowel sounds are present. EXTREMITIES: No edema. NEURO: She is alert, awake, and oriented x3. Her face is symmetric with no facial droop. Cranial nerves II through XII are grossly intact. She has a mild pronator drift on the right and strength is 3/5 on her right leg. Sensation is intact. DIAGNOSTIC STUDIES/LAB DATA: The patient had a CBC that showed a WBC of 4.2, hemoglobin of 14, hematocrit of 42, platelets of 151. INR is 0.94. Chemistry showed a sodium of 142, potassium of 3.8, chloride of 112, bicarb of 19, anion gap of 11, BUN of 16, creatinine of 1.03, glucose of 200, lactic acid of 3.4, calcium is 9.3. LFTs are normal. Troponin is 0. Nonfasting lipid profile showed triglycerides of 193 with cholesterol of 203, LDL of 122, HDL of 42. EKG done on 07/08/18 at 2:16 p.m. showed sinus rhythm with no acute ischemic changes with a nonspecific intraventricular conduction delay, unchanged from her prior EKG from May 2018. CT of the brain without contrast showed no acute intracranial pathology. Chest x-ray showed low lung volumes with subsegmental atelectasis and I am in agreement with this reading after looking at the x-ray myself. CTA of the head and neck showed a bovine configuration with the left common carotid artery originating from the brachiocephalic trunk, but no stenosis. No internal carotid artery stenosis. No aneurysm, vascular malformation, occlusion , or stenosis of the visualized intracranial circulation. ASSESSMENT AND PLAN: Ms. Urban is a 53-year-old lady with a past medical history of obesity, diabetes with diabetic neuropathy, schizoaffective disorder , pancreatitis, asthma, intellectual developmental disability, who presents to the emergency room as a code carl with dysarthria and right-sided weakness. 1. Probable cerebrovascular accident. The patient does have risk factors for vascular disease and her presentation is compatible with a cerebrovascular accident. She will be admitted to the telemetry floor. We are going to check a transthoracic echocardiogram with bubble study and she will have an MRI of the brain. She will be monitored with neuro checks and she was already seen in consultation by Neurology (Dr. Bee) with whom I discussed the case. The patient is allergic to ASPIRIN, so she will receive clopidogrel. I will continue her statin for now and repeat a fasting lipid profile. We will monitor her blood pressure. She will be seen by PT/OT and Speech Pathology. She will have a bedside nursing swallow evaluation. She was able to take medications with applesauce, but she had some difficulty with water, so we will repeat her dysphagia screening when she is on the floor. 2. Type 2 diabetes. We will continue Lantus, but at half of her usual dose as her p.o. intake would not be the same in the hospital as at home. She will have fingersticks a.c., h.s. with a lispro sliding scale. We will check a hemoglobin A1c. The last one in our system was 5.8, but it was done in October 2017. 3. Lactic acidosis. The patient does not have any signs of infection at this time. I suspect her lactic acidosis is secondary to her metformin and this is on hold at this time. We will trend her lactic acid until normalization and she will receive gentle IV hydration. 4. Schizoaffective disorder. We will continue her medications including clozapine, fluoxetine, lithium, Latuda, Topamax, and temazepam. 5. DVT prophylaxis: The patient has a score of 5 on the DVT Prophylaxis Risk Assessment Guide and she will be started on subcutaneous heparin and SCDs. 6. Code status is full. TIME SPENT: Approximately 60 minutes was spent with the patient's interview, medical records review, physical examination to complete admission, more than half of this time was spent [id number] with the patient and coordination of care. [id number]/[facility] #: [id number] DAVION
[2018-07-08] MEDS: Mometasone/Formoter 200/5 MDI INH SCH (20:20)
[2018-07-08] MEDS ORDERED: Insulin GLARGINE(*) 1 UNITS UNIT SUBCUT SCH (21:00)
[2018-07-08] MEDS: Temazepam CAP* 15 MG PO SCH (21:37)
[2018-07-08] MEDS: CloZAPine TAB* 100 MG TAB PO SCH (21:37)
[2018-07-08] MEDS: Topiramate TAB(*) 100 MG PO SCH (21:38)
[2018-07-08] MEDS: Lithium Carbonate ER* 450 MG TAB.ER PO SCH (21:38)
[2018-07-08] MEDS: Docusate CAP* 100 MG PO SCH (21:39)
[2018-07-08] MEDS: Heparin VIAL(*) 5000 UNITS/ML VIAL (FIVE THOUSAND) SUBCUT SCH (21:41)
[2018-07-08] MEDS: Lurasidone(*) 80 MG TAB PO SCH (21:46)
--- NOTE | 2018-07-08 22:37 | CONS ---
CONSULTATION REPORT: DATE OF CONSULT: 07/08/18 PATIENT OF: Dr. Cameron and Dr. Mackenzie. HISTORY OF PRESENT ILLNESS: This is a 53-year-old right-handed woman who presented with slurred speech and right arm numbness and weakness at 9 o'clock this morning. She was found by a neighbor. The ambulance was called by neighbor and she arrived at the ED at 1:49 outside the TPA window that we had at presentation. At that point, she had a pronator drift, but her right arm fell in a forceful manner to detect, which is somewhat unusual, but she had a mild right facial weakness at that time as well. She was brought immediately to the CT scan, where she had a CT, CTA done. She was outside TPA window, but that she will be a candidate for clot retrieval if she is found to have on her CTA. She has also had headache and she was feeling somewhat better following the CT scan. She notes that she was walking in an unusual manner at home, her speech was slurred and she had been holding a cat at the time of the stroke and she dropped the cat. She notes that she has neuropathy from her diabetes. She is also hypothyroid and has history of suicide attempts and perhaps the schizophrenia and is on clozapine 300 mg at bedtime, Latuda 80 mg at night, as well as insulin 20 units daily, and Synthroid 88 mcg daily. She is also on Protonix 40 mg daily. ALLERGIES: She is allergic to AMOXICILLIN and TETRACYCLINE. She also notes that she is allergic to ASPIRIN with the allergy 30 years ago with her passing out and having to be hospitalized. PAST SURGICAL HISTORY: She is status post tubal ligation. FAMILY HISTORY: There is family history for hypertension, diabetes, and cardiac disease. SOCIAL HISTORY: She does not drink, use drugs or smoke. REVIEW OF SYSTEMS: Negative in all 14 spheres other than the HPI. PHYSICAL EXAM: Blood pressure 142/107, pulse 65, respirations 24, temperature 96.7. She is alert and oriented x3 and had a NIH stroke scale of 3. I do not have it in front of me, but she had pronator drift in the right arm and leg and had a mild facial droop. Her naming was intact. Speech was not slurred and the A stroke aphasia screen, there was 1 word where she said hammock was hassock and I am not sure if that was a significant change about everything else. She had no other current word finding difficulties and she on questioning thought that rodney was actually called vinh and it did not seem like this was word finding difficulty. Her motor exam revealed trace weakness of 5-/5 in the right leg, but there is a positive Kauffman sign. The patient is intact to light touch and pin. Reflexes were 1 with downgoing toes. Chest: Clear. Cardiovascular: Regular rate and rhythm. Abdomen was soft with positive bowel sounds. DIAGNOSTIC STUDIES/LAB DATA: Her CT and CTA were normal. Labs include normal CBC, coags. Chemistries: Abnormal chemistries for bicarb is 19, creatinine is 1.03, glucose was 200, LDL of 122 which can be rechecked fasting tomorrow. She will also be getting an echo with bubble study and an MRI scan. IMPRESSION: She is going to be started on Plavix. I discussed with Dr. Mackenzie that her neurological deficits today are most likely from a small stroke, but it also seems to me that there may be some functional overlay, but I think that this might be due reaction to her neurological events rather than all being functional overlay. She will have her statins adjusted, we will be following her fasting lipids tomorrow morning, once the test results are back, we will make decision whether she needs to be monitored from a cardiac standpoint halfway. Thank you for sharing her case. [id number]/[facility] #: [id number] DAVION
[2018-07-09] MEDS: traMADol TAB* 50 MG PO PRN (05:42)
[2018-07-09] MEDS: Levothyroxine TAB* 88 MCG TAB PO SCH (05:43)
[2018-07-09] MEDS: Heparin VIAL(*) 5000 UNITS/ML VIAL (FIVE THOUSAND) SUBCUT SCH ×3 (05:43→21:15)
[2018-07-09] MEDS: Mometasone/Formoter 200/5 MDI INH SCH ×2 (08:27→20:41)
[2018-07-09] MEDS: Insulin LISPRO* 1 UNITS UNIT SUBCUT SCH ×4 (08:36→21:02)
[2018-07-09] MEDS: NS 0.9% 1000 ML** 1,000 ML IV SCH (09:00)
[2018-07-09] MEDS: Atorvastatin* 10 MG TAB PO SCH (09:02)
[2018-07-09] MEDS: Pantoprazole TAB * 40 MG TAB PO SCH (09:03)
[2018-07-09] MEDS: Clopidogrel TAB* 75 MG PO SCH (09:03)
[2018-07-09] MEDS: Topiramate TAB(*) 100 MG PO SCH ×2 (09:03→21:15)
[2018-07-09] MEDS: Multivitamins/Minerals TAB PO SCH (09:04)
[2018-07-09] MEDS: Docusate CAP* 100 MG PO SCH ×2 (09:04→21:15)
[2018-07-09] MEDS: FLUoxetine CAP* 20 MG PO SCH (09:05)
[2018-07-09] MEDS: Fluticasone NASAL SPRAY 50MCG* 16 gm SPRAY BTL BOTH NARES SCH (09:06)
--- NOTE | 2018-07-09 16:39 | ECHO ---
Patient: JENNIFFER MILAN [facility] Rec#: [id number] : 1965 Date: 07/09/2018 Age: 53y Height: 170 cm / 66.9 in Weight: 115 kg / 253.5 lbs Sex: F BSA: 2.23 Room#: 439 Admit Date#: 07/08/2018 Type: Inpatient Referring: SHE JEFFERSON Reading: Mj Carnes MD [employer]school Babysitter: Ava Clements RDCS,RDMS CC: Jason Bianchi MD Transthoracic Echocardiogram Indication: CVA BP: 11/71 HR: 87 Rhythm: NSR Findings History: Schizoaffective disorder, DM, obesity, asthma Technical Comments: The study quality is fair. The study was technically limited due to the patient's inability to lay in the left lateral decubitus position. Left Ventricle: The left ventricular chamber size is normal. Mild concentric left ventricular hypertrophy is observed. The estimated ejection fraction is 55-60%. The assessment of diastolic function is non-diagnostic. Left Atrium: The left atrium is mild to moderately dilated. Right Ventricle: The right ventricular chamber size and systolic function are within normal limits. Right Atrium: The right atrium is not well visualized. The bubble study is negative. A patent foramen ovale is not demonstrated by agitated contrast. Aortic Valve: The aortic valve is trileaflet. There is no evidence of aortic valve thickening. Systolic excursion of the aortic valve is normal. There is no evidence of aortic regurgitation. There is no evidence of aortic stenosis. Mitral Valve: The mitral valve leaflets are mildly thickened. There is no evidence of mitral regurgitation. There is no evidence of mitral stenosis. Tricuspid Valve: The tricuspid valve leaflets are normal. There is trace tricuspid regurgitation. Unable to estimate the right ventricular systolic pressure. Pulmonic Valve: There is no evidence of pulmonic valve thickening. There is no evidence of pulmonic regurgitation. Pericardium: There is no significant pericardial effusion. Aorta: The ascending aorta is not well visualized. The aortic arch is not well visualized. The aortic root is normal in size. Pulmonary Artery: The main pulmonary artery appears normal. Venous: The inferior vena cava appears normal in size. Contrast: Intravenous agitated saline contrast was used to assess intracardiac shunting. Images 63 and 64. Summary: There was not any prior study for comparison. Conclusions Suboptimal imaging. Mild concentric left ventricular hypertrophy is observed. The estimated ejection fraction is 55-60%. Nondiagnostic doppler evaluation for diastolic dysfunction. The left atrium is mild to moderately dilated. The bubble study is negative. A patent foramen ovale is not demonstrated by agitated contrast. There is trace tricuspid regurgitation. Measurements Name Value Normal Range RVIDd (AP) 2D 2.3 cm (0.9 - 2.6) IVSd (2D) 1.2 cm (0.6 - 1) LVPWd (2D) 1.3 cm (0.6 - 1) LVIDd (2D) 4.5 cm (3.6 - 5.4) LVIDs (2D) 2.6 cm - LV FS (2D) 41 % (25 - 45) Aortic Annulus 1.9 cm (1.4 - 2.6) Ao root diameter (2D) 3.1 cm (2.1 - 3.5) LAd ISD 4CH 6.1 cm (2.9 - 5.3) LA ISD 4CH W 4.4 cm (2.5 - 4.5) Name Value Normal Range LA ESV SP 4CH (A/L) 36 ml - Name Value Normal Range MV E-wave Vmax 0.6 m/sec - MV deceleration time 174 msec - MV A-wave Vmax 0.7 m/sec - MV E:A ratio 0.8 ratio - LV lateral e' Vmax 0.07 m/sec - LV E:e' lateral ratio 8 ratio - Name Value Normal Range AV Vmax 1.2 m/sec - AV VTI 19 cm - AV peak gradient 6 mmHg - AV mean gradient 3 mmHg - LVOT Vmax 0.8 m/sec - LVOT VTI 17 cm - LVOT peak gradient 2.6 mmHg - LVOT mean gradient 1 mmHg - Name Value Normal Range RAP 8 mmHg - IVC diameter 1.5 cm - Name Value Normal Range PV Vmax 0.8 m/sec - PV peak gradient 2.6 mmHg -
[2018-07-09] MEDS: Lurasidone(*) 80 MG TAB PO SCH (17:26)
--- NOTE | 2018-07-09 17:30 | PN ---
Subjective Interval History: Pt with inconsistent neuro exam. right side simultaneously very painful and very numb. Observed multiple times doing things with right side on spur of movement that she says she can't do when asked in exam. PT did not clear for home. ECHO w/o pFO. Attests to acid reflux/stomach upset and asking for her protonix. No acute events overnight. Objective Active Medications: Albuterol (Ventolin Hfa Inhaler*) 2 puff INH Q4HR PRN PRN Reason: SHORTNESS OF BREATH Atorvastatin Calcium (Lipitor*) 10 mg PO DAILY [facility]; Protocol Last Admin: 07/09/18 09:02 Dose: 10 mg Benzonatate (Tessalon Cap*) 200 mg PO TID PRN PRN Reason: COUGH Clopidogrel Bisulfate (Plavix Tab*) 75 mg PO DAILY [facility] Last Admin: 07/09/18 09:03 Dose: 75 mg Clozapine (Clozapine Tab*) 300 mg PO BEDTIME [facility] Last Admin: 07/08/18 21:37 Dose: 300 mg Cyclobenzaprine HCl (Flexeril Tab*) 10 mg PO TID PRN PRN Reason: PAIN Dextrose (D50w Syringe 50 Ml*) 12.5 gm IV PUSH .FOR FS < 60 - SS PRN PRN Reason: FS < 60 Diphenhydramine HCl (Benadryl Po*) 25 mg PO TID PRN PRN Reason: Allergy Symptoms Docusate Sodium (Colace Cap*) 100 mg PO BID [facility] Last Admin: 07/09/18 09:04 Dose: 100 mg Fluoxetine HCl (Prozac Cap*) 40 mg PO QAM [facility] Last Admin: 07/09/18 09:05 Dose: 40 mg Fluticasone Propionate (Flonase Nasal [place] 50mcg*) 2 spray BOTH NARES DAILY [facility] Last Admin: 07/09/18 09:06 Dose: 2 spray Heparin Sodium (Porcine) (Heparin Vial(*)) 5,000 units SUBCUT Q8HR [facility] Last Admin: 07/09/18 05:43 Dose: 5,000 units Sodium Chloride (Ns 0.9% 1000 Ml) 1,000 mls @ 75 mls/hr IV PER RATE [facility] Last Admin: 07/09/18 09:00 Dose: 75 mls/hr Insulin Glargine (Lantus(*)) 10 units SUBCUT BEDTIME [facility] Last Admin: 07/08/18 21:18 Dose: Not Given Insulin Human Lispro (Humalog*) 0 units SUBCUT ACHS [facility]; Protocol Last Admin: 07/09/18 17:16 Dose: Not Given Levothyroxine Sodium (Synthroid Tab*) 88 mcg PO DAILY@0600 [facility] Last Admin: 07/09/18 05:43 Dose: 88 mcg [place] Carbonate ([place] Carbonate Er Tab*) 900 mg PO BEDTIME [facility] Last Admin: 07/08/18 21:38 Dose: 900 mg Lurasidone HCl (Latuda) 80 mg PO QPM [facility] Last Admin: 07/08/18 21:46 Dose: 80 mg Magnesium Hydroxide (Milk Of Magnesia Liq*) 30 ml PO Q6H PRN PRN Reason: CONSTIPATION Mometasone Furoate/Formoterol Fumar (Dulera 200/5 Mdi*) 2 puff INH BID [facility]; Protocol Last Admin: 07/09/18 08:27 Dose: 2 puff Multivitamins/Minerals (Theragran/Minerals Tab*) 1 tab PO DAILY [facility] Last Admin: 07/09/18 09:04 Dose: 1 tab Pantoprazole Sodium (Protonix Tab*) 40 mg PO DAILY [facility] Last Admin: 07/09/18 09:03 Dose: 40 mg Temazepam (Restoril Cap*) 15 mg PO BEDTIME [facility] Last Admin: 07/08/18 21:37 Dose: 15 mg Topiramate (Topamax(*)) 100 mg PO BID [facility] Last Admin: 07/09/18 09:03 Dose: 100 mg Tramadol HCl (Ultram*) 100 mg PO Q8HR PRN PRN Reason: PAIN Last Admin: 07/09/18 05:42 Dose: 100 mg Vital Signs - 8 hr 07/09/18 07/09/18 11:01 15:42 Temperature 97.3 F 98.1 F Pulse Rate 83 72 Respiratory 24 16 Rate Blood Pressure 136/81 143/85 (mmHg) O2 Sat by Pulse 100 100 Oximetry Oxygen Devices in Use Now: None Appearance: NAD Eyes: No Scleral Icterus, PERRLA Respiratory: Symmetrical Chest Expansion and Respiratory Effort, Clear to Auscultation Cardiovascular: NL Sounds; No Murmurs; No JVD, No Edema Extremities: No Edema, No Clubbing, Cyanosis Skin: No Rash or Ulcers Neurological: - - varing motor strength with exam vs what is otherwise observed multiple times (picking up dog etc). alternating pronator drift. WALSH. Nutrition: Taking PO's Result Diagrams: 07/08/18 14:32 07/08/18 14:32 Additional Lab and Data: Laboratory Results - last 24 hr 07/08/18 07/08/18 07/09/18 20:38 21:14 07:54 POC Glucose (mg/dL) 112 H 91 Lactic Acid 1.7 07/09/18 07/09/18 12:15 16:56 POC Glucose (mg/dL) 122 H 82 Lactic Acid Assess/Plan/Problems-Billing Assessment: 53 yo female PMH schizoaffective , IDDMT2, asthma, RUE DVT, SI p/w right weakness and dysarthria. MRI negative. PT not clearing for home. - Patient Problems (1) Weakness Current Visit: Yes Status: Acute Code(s): R53.1 - WEAKNESS SNOMED Code(s) : 44622973 Comment: neuroexam not consistent between what she is asked to do and what she does spontaneously or with distraction. MRI negative. CTH negative ECHO no pFO. Appreciate neuro recs. continue plavix for now (2) Dysarthria Current Visit: Yes Status: Acute Code(s): R47.1 - DYSARTHRIA AND ANARTHRIA SNOMED Code(s): 3958517 Comment: seems to have mild speech impediment. (3) DVT prophylaxis Current Visit: No Status: Acute Priority: Medium Code(s): ATF1796 - SNOMED Code(s): 665228416 Comment: - Heparin SQ (4) Diabetes Current Visit: No Status: Acute Code(s): E11.9 - TYPE 2 DIABETES MELLITUS WITHOUT COMPLICATIONS SNOMED Code(s): 36035509 Comment: hba1c = 5.8% Oct 2017. home was lantus 20U, got 10U last night, last check was 80, will reduce to 5U qpm. SSI, poc qachs (5) Schizoaffective disorder, depressive type Current Visit: No Status: Acute Code(s): F25.1 - SCHIZOAFFECTIVE DISORDER, DEPRESSIVE TYPE SNOMED Code(s): 62952770 Comment: Her pyschiatrist is Dr. Holcomb. Continue home clozapine, lithium, topamax, prozac temazepam suspect a secondary motivation to her presentation. Status and Disposition: medicine inpatient. PT not clearing for home yet so likely will need PATRICIA.
[2018-07-09] MEDS: Insulin GLARGINE(*) 1 UNITS UNIT SUBCUT SCH (21:05)
[2018-07-09] MEDS: Temazepam CAP* 15 MG PO SCH (21:15)
[2018-07-09] MEDS: CloZAPine TAB* 100 MG TAB PO SCH (21:15)
[2018-07-09] MEDS: Lithium Carbonate ER* 450 MG TAB.ER PO SCH (21:15)
--- NOTE | 2018-07-10 00:03 | PN ---
NEUROLOGICAL FOLLOWUP NOTE: DATE OF VISIT: 07/09/18 PATIENT OF: Dr. Mackenzie. HISTORY: This is a neurological followup on this 53-year-old woman who presented yesterday with some focal neurological deficits of slurred speech, right arm numbness and weakness, but with some possible functional overlay. Currently, her complaints are that she has diarrhea, but states that her arms are working fine and that her speech is fine. MEDICATIONS: Include: 1. Plavix. 2. Clozapine. 3. Flexeril. 4. Colace. 5. Fluoxetine. 6. [place]. DIAGNOSTIC STUDIES/LAB DATA: Her MRI exam is normal. Her CTA showed no significant occlusion or stenosis in brain and no significant carotid disease. Her LDL was 122, that was nonfasting. Her echo is pending. Erin had acute onset of focal neurological deficits that were in a pattern that was consistent with a TIA. There was some, I believe, functional overlay, but it is possible that this is TIA with some embellishment. In any event, she has cardiovascular risk factors and it will be most appropriate for her to be on antiplatelet therapy. Her fasting lipids should be treated with a target of 70 and it would be important to get a fasting lipid profile. If we do not get that before she leaves, she should be started on a statin and then get the lipid profile in the next several days. She is allergic to ASPIRIN. Thank you for sharing her case. [id number]/[facility] #: [id number] [place]
[2018-07-10] MEDS: Levothyroxine TAB* 88 MCG TAB PO SCH (05:29)
[2018-07-10] MEDS: NS 0.9% 1000 ML** 1,000 ML IV SCH (05:29)
[2018-07-10] MEDS: Heparin VIAL(*) 5000 UNITS/ML VIAL (FIVE THOUSAND) SUBCUT SCH ×3 (05:29→22:10)
[2018-07-10 06:36] LABS: HDL Cholesterol 34.1 mg/dL
[2018-07-10] MEDS: Insulin LISPRO* 1 UNITS UNIT SUBCUT SCH ×4 (07:42→22:09)
[2018-07-10] MEDS: Mometasone/Formoter 200/5 MDI INH SCH ×2 (08:17→20:42)
[2018-07-10] MEDS: Atorvastatin* 10 MG TAB PO SCH (08:56)
[2018-07-10] MEDS: Pantoprazole TAB * 40 MG TAB PO SCH (08:56)
[2018-07-10] MEDS: Docusate CAP* 100 MG PO SCH ×2 (08:56→22:09)
[2018-07-10] MEDS: Multivitamins/Minerals TAB PO SCH (08:57)
[2018-07-10] MEDS: FLUoxetine CAP* 20 MG PO SCH (08:57)
[2018-07-10] MEDS: Clopidogrel TAB* 75 MG PO SCH (08:58)
[2018-07-10] MEDS: Topiramate TAB(*) 100 MG PO SCH ×2 (08:58→22:09)
[2018-07-10] MEDS: Fluticasone NASAL SPRAY 50MCG* 16 gm SPRAY BTL BOTH NARES SCH (09:02)
--- NOTE | 2018-07-10 09:28 | PN ---
Subjective Date of Service: 07/10/18 Interval History: HD # 3 on 07/10 ID: 53 yo F PMH schizoaffective d/o, asthma, IDDM who p/w weakness and slurred speech Imaging normal and neurology exam not reproducible, neuro possible TIA vs functional embellishment of sx. Currently PT unable to clear for return to home. Overnight, no acute events, VSS, voiding freely, tolerating PO Labs: Unremarkable This morning seen by neuro with again unremarkable neuro exam, this afternoon I saw her with her son and daughter in law, grandkids at bedside, today her c/is R hand pain, feels that her confusion improved, though told the nurse that she was confused and didn't remember working with PT but on my exam does recall. She is a terse historian, not incredibly forthcoming, reports "felt off" for a couple of days and thats what brought her in, does seem encouraged this is effectively not stroke and likely not even a TIA. Neuro has signed off. Does not report any stressful events preceeding this but quite guarded on my exam, aloof with poor eye contact, son does not offer any collateral. Grossly denies CP, SOB, GI or sx. Objective Active Medications: Albuterol (Ventolin Hfa Inhaler*) 2 puff INH Q4HR PRN PRN Reason: SHORTNESS OF BREATH Atorvastatin Calcium (Lipitor*) 10 mg PO DAILY [facility]; Protocol Last Admin: 07/10/18 08:56 Dose: 10 mg Benzonatate (Tessalon Cap*) 200 mg PO TID PRN PRN Reason: COUGH Clopidogrel Bisulfate (Plavix Tab*) 75 mg PO DAILY [facility] Last Admin: 07/10/18 08:58 Dose: 75 mg Clozapine (Clozapine Tab*) 300 mg PO BEDTIME [facility] Last Admin: 07/09/18 21:15 Dose: 300 mg Cyclobenzaprine HCl (Flexeril Tab*) 10 mg PO TID PRN PRN Reason: PAIN Dextrose (D50w Syringe 50 Ml*) 12.5 gm IV PUSH .FOR FS < 60 - SS PRN PRN Reason: FS < 60 Diphenhydramine HCl (Benadryl Po*) 25 mg PO TID PRN PRN Reason: Allergy Symptoms Docusate Sodium (Colace Cap*) 100 mg PO BID [facility] Last Admin: 07/10/18 08:56 Dose: 100 mg Fluoxetine HCl (Prozac Cap*) 40 mg PO QAM [facility] Last Admin: 07/10/18 08:57 Dose: 40 mg Fluticasone Propionate (Flonase Nasal [employer] 50mcg*) 2 spray BOTH NARES DAILY [facility] Last Admin: 07/10/18 09:02 Dose: 2 spray Heparin Sodium (Porcine) (Heparin Vial(*)) 5,000 units SUBCUT Q8HR [facility] Last Admin: 07/10/18 05:29 Dose: 5,000 units Sodium Chloride (Ns 0.9% 1000 Ml) 1,000 mls @ 75 mls/hr IV PER RATE [facility] Last Admin: 07/10/18 05:29 Dose: 75 mls/hr Insulin Glargine (Lantus(*)) 5 units SUBCUT BEDTIME [facility] Last Admin: 07/09/18 21:05 Dose: Not Given Insulin Human Lispro (Humalog*) 0 units SUBCUT ACHS [facility]; Protocol Last Admin: 07/10/18 07:42 Dose: Not Given Levothyroxine Sodium (Synthroid Tab*) 88 mcg PO DAILY@0600 [facility] Last Admin: 07/10/18 05:29 Dose: 88 mcg [place] Carbonate ([place] Carbonate Er Tab*) 900 mg PO BEDTIME [facility] Last Admin: 07/09/18 21:15 Dose: 900 mg Lurasidone HCl (Latuda) 80 mg PO QPM [facility] Last Admin: 07/09/18 17:26 Dose: 80 mg Magnesium Hydroxide (Milk Of Magnesia Liq*) 30 ml PO Q6H PRN PRN Reason: CONSTIPATION Mometasone Furoate/Formoterol Fumar (Dulera 200/5 Mdi*) 2 puff INH BID [facility]; Protocol Last Admin: 07/10/18 08:17 Dose: 2 puff Multivitamins/Minerals (Theragran/Minerals Tab*) 1 tab PO DAILY [facility] Last Admin: 07/10/18 08:57 Dose: 1 tab Pantoprazole Sodium (Protonix Tab*) 40 mg PO DAILY [facility] Last Admin: 07/10/18 08:56 Dose: 40 mg Temazepam (Restoril Cap*) 15 mg PO BEDTIME [facility] Last Admin: 07/09/18 21:15 Dose: 15 mg Topiramate (Topamax(*)) 100 mg PO BID [facility] Last Admin: 07/10/18 08:58 Dose: 100 mg Tramadol HCl (Ultram*) 100 mg PO Q8HR PRN PRN Reason: PAIN Last Admin: 07/09/18 05:42 Dose: 100 mg Vital Signs - 8 hr 07/10/18 07/10/18 07/10/18 03:15 03:16 07:44 Temperature 99 F 99.0 F Pulse Rate 85 83 Respiratory 24 24 18 Rate Blood Pressure 136/84 136/84 (mmHg) O2 Sat by Pulse 97 98 96 Oximetry 07/10/18 08:19 Temperature Pulse Rate 92 Respiratory 16 Rate Blood Pressure (mmHg) O2 Sat by Pulse 93 Oximetry Oxygen Devices in Use Now: None Appearance: Well appearing woman lying in bed watching TV, ambivelent to examiner. Eyes: No Scleral Icterus, PERRLA Ears/Nose/Mouth/Throat: Mucous Membranes Moist, - - adentulous Neck: NL Appearance and Movements; NL JVP, Trachea Midline Respiratory: Symmetrical Chest Expansion and Respiratory Effort, Clear to Auscultation, - - Able to lift herself with R hand to sit up for exam Cardiovascular: NL Sounds; No Murmurs; No JVD, RRR Abdominal: No Hepatosplenomegaly Lymphatic: No Cervical Adenopathy Extremities: No Edema Skin: No Rash or Ulcers Neurological: NL Sensation, NL Muscle Strength and Tone, - - Mild slurred speech , intermittnetly clear, oriented to herself and place, does not offer much else to me. Result Diagrams: 07/08/18 14:32 07/08/18 14:32 Additional Lab and Data: Laboratory Results - last 24 hr 07/08/18 07/08/18 07/09/18 20:38 21:14 07:54 POC Glucose (mg/dL) 112 H 91 Lactic Acid 1.7 07/09/18 07/09/18 12:15 16:56 POC Glucose (mg/dL) 122 H 82 Lactic Acid Assess/Plan/Problems-Billing Assessment: 53 yo F PMH schizoaffective d/o, asthma, IDDM who p/w weakness and slurred speech. Imaging normal and neurology exam not reproducible, neuro possible TIA vs functional embellishment of sx. Today with inconsistent hx about confusion, concern for underlying psych decomp, at this time no clear etiology for weakness. - Patient Problems (1) Dysarthria Current Visit: Yes Status: Acute Code(s): R47.1 - DYSARTHRIA AND ANARTHRIA SNOMED Code(s): 5730899 Comment: Seems to have mild speech impediment. Though clears when more engaged according to son. (2) Weakness Current Visit: Yes Status: Acute Code(s): R53.1 - WEAKNESS SNOMED Code(s) : 67933321 Comment: -neuroexam not consistent between what she is asked to do and what she does spontaneously or with distraction. MRI negative. CTH negative -ECHO no pFO. -Neuro has signed off -Will check TSH, B12, Folate, RPR and [place] level -Possibly polypharmacy leading to confusion or weakness -Reasonable to continue plavix for 30 days, then change to asa continue plavix for now (3) Schizoaffective disorder, depressive type Current Visit: No Status: Acute Code(s): F25.1 - SCHIZOAFFECTIVE DISORDER, DEPRESSIVE TYPE SNOMED Code(s): 20527643 Comment: Her pyschiatrist is Dr. Holcomb. Continue home clozapine, lithium, topamax, prozac temazepam -Check levels as above -Inpatient psych consult to r/o conversion or psych decompensation represneting her neuro sx (4) Type 2 diabetes mellitus Current Visit: No Status: Chronic Priority: Medium Comment: - metformin on hold - finger sticks show adequate control (5) DVT prophylaxis Current Visit: No Status: Acute Priority: Medium Code(s): VMY0850 - SNOMED Code(s): 966382763 Comment: - Heparin SQ (6) Full code status Current Visit: Yes Status: Acute Code(s): Z78.9 - OTHER SPECIFIED HEALTH STATUS SNOMED Code(s): 435078274 Status and Disposition: medicine inpatient. PT not clearing for home yet so likely will need PATRICIA.
[2018-07-10] MEDS: traMADol TAB* 50 MG PO PRN (11:55)
--- NOTE | 2018-07-10 14:53 | CONS ---
NEUROLOGY FOLLOWUP CONSULTATION: DATE OF CONSULT: 07/10/18 HOSPITALIST: Dr. Hortencia Pablo. LOCATION: She is in room 439. CHIEF COMPLAINT: Right-sided weakness. INTERVAL HISTORY: Since yesterday, Erin's examination by the various examiners is described as in consistent. She says that she was up and walking with help today, but "I didn't do well." She notes some sense of pain in her right arm and right leg. She denies headache currently. She is able to e at without swallowing difficulties. MEDICATIONS: Reviewed and she is currently on: 1. Plavix 75 mg p.o. daily. 2. Atorvastatin 10 mg p.o. daily. 3. Ventolin inhaler 2 puffs p.r.n. q.4 hours. 4. Clozapine 300 mg p.o. at bedtime. 5. Cyclobenzaprine 10 mg p.o. t.i.d. p.r.n. pain. 6, Colace 100 mg p.o. b.i.d. 7. Fluoxetine 40 mg p.o. q.a.m. 8. Heparin 5000 units subcutaneous q.8 hours. 9. Sliding scale insulin. 10. Levothyroxine 88 mcg p.o. daily. 11. [place] carbonate 900 mg p.o. at bedtime. 12. Latuda 80 mg p.o. at bedtime. 13. Protonix 40 mg p.o. daily. 14. Temazepam 15 mg p.o. at bedtime. 15. Topamax 100 mg p.o. b.i.d. 16. Tramadol 100 mg p.o. q.8 hours as needed for pain. PHYSICAL EXAM: On examination, she is morbidly obese. Blood pressure has been running about 130 to 140 systolic over 70 to 80 diastolic, temperature 97.4, respiratory rate is 16 and oxygen saturation is 100% on room air. Heart rates running in the 70s. Heart tones are normal. I do not hear any cer vical bruits, but neck is very thick. Lungs are clear. Oral mucosa is moist and atraumatic. Neurolo gical Exam: Facial musculature is symmetric. Facial sensation to light touch is symmetric. Speech is clear. Palate rises symmetrically. Tongue protrudes in the midline. Motor exam reveals inconsis tent effort, but normal strength proximally and distally in upper and lower extremities. There is so me drift of both extremities. Finger taps are slow and purposeful on both hands. Wpgiuk-yx-rxov michelle uvers are slow and purposeful both arms. Sensory exam, pin is symmetrical in arms and legs. DIAGNOSTIC STUDIES/LAB DATA: Laboratory data notable for [id number] glucose this morning of 83. Cholesterol this morning 162 and LDL was 80. I reviewed her MRI scans and that looks normal. There is no evidence of remote or recent infarctions . CT angiogram of the head and neck was performed on 07/08/18. Interpretation is normal CT angiogram o f the head and neck. Transthoracic echocardiogram was done on 07/08/18. It was notable for a mild to moderately dilated l eft atrium. There was some concentric left ventricular hypertrophy. A bubble study was negative for patent foramen ovale. IMPRESSION AND PLAN: Impression is that of a functional exam. She has significant vascular risk fac tors, however, and I agree with adding Plavix therapy. Prior examiner saw evidence of facial weaknes s, which is not present on my exam today. I encouraged her that there is no evidence of significant stroke and that I reassured her that I felt that she would recover. She should be continuing to work with physical therapy and encouraged to be active. Currently, her vascular risk factors are all being addressed. I will sign off at this poin t and please contact Neurology if further followup is required. [id number]/[facility] #: [id number]
[2018-07-10 17:14] LABS: Lithium 0.46 mmol/L (0.6-1.2)
[2018-07-10 17:30] LABS: TSH (Thyroid Stimulating Horm) 0.59 mcIU/mL (0.34-5.60)
--- NOTE | 2018-07-10 17:37 | PN ---
Hospitalist Progress Note Date of Service: 07/10/18 Spoke with psychiatry who is consulted in this case, they fell possible contribution from polypharmacy and agree to see patient tomorrow to see if any medications can be adjusted. Furthermore, diagnosis of intellectual disability should be added to this case as pt with quite limited capacity Will d/c neuro checks
[2018-07-10 17:41] LABS: Folate 17.65 ng/mL (>3.99)
[2018-07-10] MEDS: Lurasidone(*) 80 MG TAB PO SCH (18:18)
[2018-07-10] MEDS: Temazepam CAP* 15 MG PO SCH (22:09)
[2018-07-10] MEDS: CloZAPine TAB* 100 MG TAB PO SCH (22:09)
[2018-07-10] MEDS: Lithium Carbonate ER* 450 MG TAB.ER PO SCH (22:10)
[2018-07-10] MEDS: Insulin GLARGINE(*) 1 UNITS UNIT SUBCUT SCH (22:10)
[2018-07-11] MEDS: Levothyroxine TAB* 88 MCG TAB PO SCH (05:44)
[2018-07-11] MEDS: Heparin VIAL(*) 5000 UNITS/ML VIAL (FIVE THOUSAND) SUBCUT SCH ×3 (05:44→22:37)
[2018-07-11 06:43] LABS: BUN/Creatinine Ratio 10.2 (8-20); Calcium 9.2 mg/dL (8.6-10.3); EGFR African American 57.5 (>60); EGFR Non-African American 47.6 (>60); Potassium 3.9 mmol/L (3.5-5.0)
[2018-07-11] MEDS: Atorvastatin* 10 MG TAB PO SCH (08:54)
[2018-07-11] MEDS: Clopidogrel TAB* 75 MG PO SCH (08:55)
[2018-07-11] MEDS: Docusate CAP* 100 MG PO SCH ×2 (08:55→20:29)
[2018-07-11] MEDS: Fluticasone NASAL SPRAY 50MCG* 16 gm SPRAY BTL BOTH NARES SCH (08:55)
[2018-07-11] MEDS: FLUoxetine CAP* 20 MG PO SCH (08:55)
[2018-07-11] MEDS: Topiramate TAB(*) 100 MG PO SCH ×2 (08:56→20:44)
[2018-07-11] MEDS: Multivitamins/Minerals TAB PO SCH (08:56)
[2018-07-11] MEDS: Pantoprazole TAB * 40 MG TAB PO SCH (08:56)
[2018-07-11] MEDS: Insulin LISPRO* 1 UNITS UNIT SUBCUT SCH ×4 (09:01→20:30)
[2018-07-11] MEDS: Mometasone/Formoter 200/5 MDI INH SCH ×2 (10:33→20:06)
[2018-07-11] MEDS: traMADol TAB* 50 MG PO PRN (11:14)
--- NOTE | 2018-07-11 15:19 | PN ---
Subjective Date of Service: 07/11/18 Interval History: Pt complains of R sided weakness and numbness, worse in RUE than RLE. She describes slight headache and continued slurred speech. She continues to c/o difficulty remembering and mild confusion. She has no L sided complaints or concerns. She denies vision changes, CP, SOB, abdominal complaints. Objective Active Medications: Albuterol (Ventolin Hfa Inhaler*) 2 puff INH Q4HR PRN Atorvastatin Calcium (Lipitor*) 10 mg PO DAILY MAG; Protocol Benzonatate (Tessalon Cap*) 200 mg PO TID PRN Clopidogrel Bisulfate (Plavix Tab*) 75 mg PO DAILY MAG Clozapine (Clozapine Tab*) 300 mg PO BEDTIME MAG Cyclobenzaprine HCl (Flexeril Tab*) 10 mg PO TID PRN Dextrose (D50w Syringe 50 Ml*) 12.5 gm IV PUSH .FOR FS < 60 - SS PRN Diphenhydramine HCl (Benadryl Po*) 25 mg PO TID PRN Docusate Sodium (Colace Cap*) 100 mg PO BID MAG Fluoxetine HCl (Prozac Cap*) 40 mg PO QAM MAG Fluticasone Propionate (Flonase Nasal [place] 50mcg*) 2 spray BOTH NARES DAILY MAG Heparin Sodium (Porcine) (Heparin Vial(*)) 5,000 units SUBCUT Q8HR MAG Insulin Glargine (Lantus(*)) 5 units SUBCUT BEDTIME MAG Insulin Human Lispro (Humalog*) 0 units SUBCUT ACHS MAG; Protocol Levothyroxine Sodium (Synthroid Tab*) 88 mcg PO DAILY@0600 MAG [place] Carbonate ([place] Carbonate Er Tab*) 900 mg PO BEDTIME MAG Lurasidone HCl (Latuda) 80 mg PO QPM MAG Magnesium Hydroxide (Milk Of Magnesia Liq*) 30 ml PO Q6H PRN Mometasone Furoate/Formoterol Fumar (Dulera 200/5 Mdi*) 2 puff INH BID MAG; Protocol Multivitamins/Minerals (Theragran/Minerals Tab*) 1 tab PO DAILY MAG Pantoprazole Sodium (Protonix Tab*) 40 mg PO DAILY MAG Temazepam (Restoril Cap*) 15 mg PO BEDTIME MAG Topiramate (Topamax(*)) 100 mg PO BID MAG Tramadol HCl (Ultram*) 100 mg PO Q8HR PRN Vital Signs: Temp Pulse Resp BP Pulse Ox 98.4 F 87 18 132/89 98 07/11/18 11:11 07/11/18 11:11 07/11/18 14:21 07/11/18 11:11 07/11/18 11:11 Oxygen Devices in Use Now: None Appearance: Pt is laying in bed sleeping. She wakes easily, but drifts to sleep often. She continues to c/o slurred speech and appears to have a speech impediment, but speech is not slurring or slowed. There is no difficulty with word finding. Ears/Nose/Mouth/Throat: Clear Oropharnyx, Mucous Membranes Moist Neck: NL Appearance and Movements; NL JVP, Trachea Midline Respiratory: Symmetrical Chest Expansion and Respiratory Effort, Clear to Auscultation Cardiovascular: NL Sounds; No Murmurs; No JVD, RRR, No Edema Abdominal: NL Sounds; No Tenderness; No Distention, No Hepatosplenomegaly Extremities: No Edema, No Clubbing, Cyanosis Neurological: Alert and Oriented x 3, - - LUE, LLE 5/5 with intact sensation, pulses. RUE 5/5. RLE varies from 3-4/5. Result Diagrams: 07/08/18 14:32 07/11/18 05:40 Additional Lab and Data: Laboratory Results - last 24 hr 07/08/18 07/08/18 07/09/18 20:38 21:14 07:54 POC Glucose (mg/dL) 112 H 91 Lactic Acid 1.7 07/09/18 07/09/18 12:15 16:56 POC Glucose (mg/dL) 122 H 82 Lactic Acid Assess/Plan/Problems-Billing Assessment: 53 yo F PMH schizoaffective d/o, asthma, IDDM who p/w weakness and slurred speech. Imaging normal and neurology exam not reproducible, neuro possible TIA vs functional embellishment of sx. Today with inconsistent hx about confusion, concern for underlying psych decomp, at this time no clear etiology for weakness. - Patient Problems (1) Weakness Comment: -neuroexam not consistent between what she is asked to do and what she does spontaneously or with distraction. MRI negative. CTH negative -ECHO no pFO. -Neuro has signed off -TSH, B12, Folate, Mg WNL -[place] low at 0.46 -RPR pending -Possibly polypharmacy leading to confusion or weakness -All goals, except stairs, met with PT, and pt would like d/c with outpatient PT over PATR[facility] -Reasonable to continue plavix for 30 days, then change to asa (2) Dysarthria Comment: -Seems to have mild speech impediment. Though clears when more engaged according to son. (3) Schizoaffective disorder, depressive type Comment: Her pyschiatrist is Dr. Holcomb. Continue home clozapine, lithium, topamax, prozac temazepam -Check levels as above -Thank you for Psych consult; recommended continued outpatient medications with outpatient follow up to PCP for reduction in medication polypharmacy (4) Type 2 diabetes mellitus Comment: -FS show adequate control -Continue Glargine, Lispro ss -Metformin on hold (5) DVT prophylaxis Comment: -Heparin SQ (6) Full code status Status and Disposition: Medicine inpatient. PT has cleared for home.
--- NOTE | 2018-07-11 15:49 | CONSULT ---
Identification - Patient Identification Reason for Psychiatric Consultation: Patient Distress - Neurological complaints. -: Patient is a 53 year old, F admitted on 07/08/18. - MHU Identification Employment Status: Disabled Hx Psychiatric Hospitalization: Yes - Last admission on [facility] was 10/13/17 Prior Psychiatric Diagnosis: Schizoaffective d/o, Bipolar type. Arrived to Hospital Via: EMS History - Objective HPI: 53 y/o WF with multiple disabling medical conditions and a diagnosis of Schizoaffective d/o, Bipolar type was brought to ED by EMS due to right sided weekness and garbled speech. Her neighbors were concerned due to the sudden change of her physical health. Medical team is trying to find out the reason for the change and was concerned about polypsychopharmacy which could be a contributing factors. On bedside evaluation Erin presents as coharant and reliable historian. At the time of evaluation she didn't have any acute psychiatric complaints related to her mood, thoughts or perceptions. She denied any thoughts of self harm or harm to others. 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 However she has been having difficulty managing her meds all the time. There are times she mistakingly takes one or other meds multiple times. Denies any serious psychosocial stress. Past Medical History: Type 2 DM, chronic pencreatitis, Arthratis, Morbid obesity ans Asthma. Radiology Results: Please see H&P Exam Appearance: Obese Hygiene: Mal-odorous Grooming: Disheveled Psychomotor Activities: Normal Exhibits Abnormal Movement: No Attitude and Relatedness: Appropriate Eye Contact: Good - Speech Quality: Unpressured Latencies: Normal Quantity: Appropriate Patient's Decription of Mood: "Fine" Observed Affect: Non-labile Patient's Thought Process: Coherent, Goal Directed Thought Content: No Passive Wish, No Suicidal Planning, No Homicidal Ideation, No Paranoid Ideation Experiencing Hallucinations: No, Sensorium is Clear Type of Hallucinations: Visual: No, Auditory: No, Command: No Level of Consciousness: Alert Orientation: Yes Intact, Yes Orientated to Time, Yes Orientated to Place, Yes Orientated to Person Impulse Control: Intact Insight and Judgement: Fair Impression - Impression Merits Inpatient Hospitalization: No Plan - Treatment Plan Continued Medication Management: Continue Outpt Medication Medications: Current Medications Albuterol (Ventolin Hfa Inhaler*) 2 puff INH Q4HR PRN PRN Reason: SHORTNESS OF BREATH Atorvastatin Calcium (Lipitor*) 10 mg PO DAILY [facility]; Protocol Last Admin: 07/11/18 08:54 Dose: 10 mg Benzonatate (Tessalon Cap*) 200 mg PO TID PRN PRN Reason: COUGH Clopidogrel Bisulfate (Plavix Tab*) 75 mg PO DAILY [facility] Last Admin: 07/11/18 08:55 Dose: 75 mg Clozapine (Clozapine Tab*) 300 mg PO BEDTIME [facility] Last Admin: 07/10/18 22:09 Dose: 300 mg Cyclobenzaprine HCl (Flexeril Tab*) 10 mg PO TID PRN PRN Reason: PAIN Dextrose (D50w Syringe 50 Ml*) 12.5 gm IV PUSH .FOR FS < 60 - SS PRN PRN Reason: FS < 60 Diphenhydramine HCl (Benadryl Po*) 25 mg PO TID PRN PRN Reason: Allergy Symptoms Docusate Sodium (Colace Cap*) 100 mg PO BID [facility] Last Admin: 07/11/18 08:55 Dose: 100 mg Fluoxetine HCl (Prozac Cap*) 40 mg PO QAM [facility] Last Admin: 07/11/18 08:55 Dose: 40 mg Fluticasone Propionate (Flonase Nasal [place] 50mcg*) 2 spray BOTH NARES DAILY [facility] Last Admin: 07/11/18 08:55 Dose: 2 spray Heparin Sodium (Porcine) (Heparin Vial(*)) 5,000 units SUBCUT Q8HR [facility] Last Admin: 07/11/18 14:16 Dose: 5,000 units Insulin Glargine (Lantus(*)) 5 units SUBCUT BEDTIME [facility] Last Admin: 07/10/18 22:10 Dose: 5 units Insulin Human Lispro (Humalog*) 0 units SUBCUT ACHS [facility]; Protocol Last Admin: 07/11/18 12:33 Dose: 2 units Levothyroxine Sodium (Synthroid Tab*) 88 mcg PO DAILY@0600 [facility] Last Admin: 07/11/18 05:44 Dose: 88 mcg [place] Carbonate ([place] Carbonate Er Tab*) 900 mg PO BEDTIME [facility] Last Admin: 07/10/18 22:10 Dose: 900 mg Lurasidone HCl (Latuda) 80 mg PO QPM [facility] Last Admin: 07/10/18 18:18 Dose: 80 mg Magnesium Hydroxide (Milk Of Magnesia Liq*) 30 ml PO Q6H PRN PRN Reason: CONSTIPATION Mometasone Furoate/Formoterol Fumar (Dulera 200/5 Mdi*) 2 puff INH BID [facility]; Protocol Last Admin: 07/11/18 10:33 Dose: 2 puff Multivitamins/Minerals (Theragran/Minerals Tab*) 1 tab PO DAILY [facility] Last Admin: 07/11/18 08:56 Dose: 1 tab Pantoprazole Sodium (Protonix Tab*) 40 mg PO DAILY [facility] Last Admin: 07/11/18 08:56 Dose: 40 mg Temazepam (Restoril Cap*) 15 mg PO BEDTIME [facility] Last Admin: 07/10/18 22:09 Dose: 15 mg Topiramate (Topamax(*)) 100 mg PO BID [facility] Last Admin: 07/11/18 08:56 Dose: 100 mg Tramadol HCl (Ultram*) 100 mg PO Q8HR PRN PRN Reason: PAIN Last Admin: 07/11/18 11:14 Dose: 100 mg - Discharge Plan Discharge Plan: Outpatient Follow Up Outpatient Program: [facility] - Polypsychopharmacology need to be addressed by her outpatient prescriber. In case patient need a transfer to [facility] the inpatient team should seriously attempt to cut down on number of meds.
[2018-07-11 16:19] LABS: Magnesium 2.3 mg/dL (1.9-2.7)
[2018-07-11] MEDS: Lurasidone(*) 80 MG TAB PO SCH (17:56)
[2018-07-11] MEDS: Insulin GLARGINE(*) 1 UNITS UNIT SUBCUT SCH (20:29)
[2018-07-11] MEDS: Temazepam CAP* 15 MG PO SCH (20:29)
[2018-07-11] MEDS: CloZAPine TAB* 100 MG TAB PO SCH (20:30)
[2018-07-11] MEDS: Lithium Carbonate ER* 450 MG TAB.ER PO SCH (20:31)
[2018-07-12] MEDS: Heparin VIAL(*) 5000 UNITS/ML VIAL (FIVE THOUSAND) SUBCUT SCH ×3 (05:34→20:27)
[2018-07-12] MEDS: Levothyroxine TAB* 88 MCG TAB PO SCH (05:34)
[2018-07-12] MEDS: Mometasone/Formoter 200/5 MDI INH SCH ×2 (07:24→20:47)
[2018-07-12] MEDS: Insulin LISPRO* 1 UNITS UNIT SUBCUT SCH ×4 (07:48→20:27)
[2018-07-12] MEDS: Docusate CAP* 100 MG PO SCH ×2 (08:42→20:26)
[2018-07-12] MEDS: FLUoxetine CAP* 20 MG PO SCH (08:42)
[2018-07-12] MEDS: Pantoprazole TAB * 40 MG TAB PO SCH (08:42)
[2018-07-12] MEDS: Clopidogrel TAB* 75 MG PO SCH (08:42)
[2018-07-12] MEDS: Fluticasone NASAL SPRAY 50MCG* 16 gm SPRAY BTL BOTH NARES SCH (08:42)
[2018-07-12] MEDS: Topiramate TAB(*) 100 MG PO SCH ×2 (08:43→20:26)
[2018-07-12] MEDS: Atorvastatin* 10 MG TAB PO SCH (08:43)
[2018-07-12] MEDS: Multivitamins/Minerals TAB PO SCH (08:43)
--- NOTE | 2018-07-12 12:28 | CONSULT ---
Consult Consult: CC: " I got a new dog" Reason for consult: Right sided weakness with a history of poly-pharmacy and psychiatric history. Patient seen for a follow up evaluation. Patient reported that she got a new dog and did not have any recent stressful emotional events. She denied recent overdose or change in medications. She denied getting into a argument with a family member or loved one. She denied witnessing a traumatic event. Per nursing staff her weakness changes and comes and goes. She denied suicidal ideation, intent or plan. She denied homicidal ideation intent or plan. She denied auditory and or visual hallucinations. Patient reported compliance with medication. She wants to live for her new dog. APPEARANCE : 53 year old who appears stated age. Patient is malodourous, BEHAVIOR: Cooperative , calm EYE CONTACT: Fair PSYCHOMOTOR ACTIVITY: No psychomotor agitation or retardation. MOVEMENTS: No abnormal movements observed. SPEECH : Normal rate, rhythm, volume and tone. MOOD : "Fine " AFFECT : constricted THOUGHT PROCESS: formulated and organized in a logical, linear goal directed manner. No flight of ideas , No loose associations , or circumstantiality. THOUGHT CONTENT: no delusions, preoccupations, obsessions, phobias or preoccupations. PERCEPTION: No current auditory or visual hallucinations. Doesnt appear to be responding to internal cues. No evidence of depersonalization , de-realization, or illusions SUICIDALITY Denied suicidal ideation, intent or plan. HOMICIDALITY Denied homicidal ideation, intent or plan. Insight/judgment: Fair insight and judgment ORIENTATION: Oriented to self, location, and time. Diagnosis : Schizoaffective disorder currently in remission Assessment: 53 year old with history of schizoaffective disorder came to the hospital with numbness and weakness in her right arm and foot. Plan #Patient doesnt require inpatient psychiatric admission at this time. #Primary team to rule out medical causes #Neurology evaluation completed. # Conversion disorder was considered however unlikely due to unidentifiable emotional event. # Recommend outpatient follow up with her outpatient Psychiatrist Dr. Holcomb #Li level 0.46 #WBC and ANC within normal limits to continue clozapine #Recommendations communicated to primary team #Psychiatry will continue to follow patient Patient wants to live for new dog, compliant with medications and no access to firearms Sodium 142 mmol/L (135-145) 07/11/18 05:40 Potassium 3.9 mmol/L (3.5-5.0) 07/11/18 05:40 BUN 12 mg/dL (6-24) 07/11/18 05:40 Creatinine 1.18 mg/dL (0.51-0.95) H 07/11/18 05:40 Hemoglobin A1c 6.4 % (4.0-5.6) H 07/10/18 05:23 Calcium 9.2 mg/dL (8.6-10.3) 07/11/18 05:40 Magnesium 2.3 mg/dL (1.9-2.7) 07/11/18 05:40 AST 13 U/L (13-39) 07/08/18 14:32 ALT 16 U/L (7-52) 07/08/18 14:32 Triglycerides 239 mg/dL 07/10/18 05:23 Cholesterol 162 mg/dL 07/10/18 05:23 LDL Cholesterol 80 mg/dL 07/10/18 05:23 Vital Signs Temp Pulse Resp BP Pulse Ox 98.2 F 86 18 118/73 98 07/12/18 11:36 07/12/18 11:36 07/12/18 11:36 07/12/18 11:36 07/12/18 11:36 Dejon Garvey M.D. Ext [id number]
[2018-07-12] MEDS: traMADol TAB* 50 MG PO PRN ×2 (13:13→20:01)
--- NOTE | 2018-07-12 13:31 | PN ---
Subjective Date of Service: 07/12/18 Interval History: Pt states she is feeling ok today. She continues to require rolling walker for ambulation, which is not her normal. She was also noted to have difficulty dressing herself this morning with OT. She continues to have numbness on the right side. Numbness reported to the R posterior forearm at the wrist joint. She c/o R sided weakness as well. Pt evaluated by PT and OT with varying needs and goals set. Currently, pt wishes to go to [facility] and work with PT/OT for strengthening and ADLs. Referrals out for placement. Objective Active Medications: Albuterol (Ventolin Hfa Inhaler*) 2 puff INH Q4HR PRN Atorvastatin Calcium (Lipitor*) 10 mg PO DAILY MAG; Protocol Benzonatate (Tessalon Cap*) 200 mg PO TID PRN Clopidogrel Bisulfate (Plavix Tab*) 75 mg PO DAILY MAG Clozapine (Clozapine Tab*) 300 mg PO BEDTIME MAG Cyclobenzaprine HCl (Flexeril Tab*) 10 mg PO TID PRN Dextrose (D50w Syringe 50 Ml*) 12.5 gm IV PUSH .FOR FS < 60 - SS PRN Diphenhydramine HCl (Benadryl Po*) 25 mg PO TID PRN Docusate Sodium (Colace Cap*) 100 mg PO BID MAG Fluoxetine HCl (Prozac Cap*) 40 mg PO QAM MAG Fluticasone Propionate (Flonase Nasal [place] 50mcg*) 2 spray BOTH NARES DAILY MAG Heparin Sodium (Porcine) (Heparin Vial(*)) 5,000 units SUBCUT Q8HR MAG Insulin Glargine (Lantus(*)) 5 units SUBCUT BEDTIME MAG Insulin Human Lispro (Humalog*) 0 units SUBCUT ACHS MAG; Protocol Levothyroxine Sodium (Synthroid Tab*) 88 mcg PO DAILY@0600 MAG [place] Carbonate ([place] Carbonate Er Tab*) 900 mg PO BEDTIME MAG Lurasidone HCl (Latuda) 80 mg PO QPM MAG Magnesium Hydroxide (Milk Of Magnesia Liq*) 30 ml PO Q6H PRN Mometasone Furoate/Formoterol Fumar (Dulera 200/5 Mdi*) 2 puff INH BID MAG; Protocol Multivitamins/Minerals (Theragran/Minerals Tab*) 1 tab PO DAILY MAG Pantoprazole Sodium (Protonix Tab*) 40 mg PO DAILY MAG Temazepam (Restoril Cap*) 15 mg PO BEDTIME MAG Topiramate (Topamax(*)) 100 mg PO BID MAG Tramadol HCl (Ultram*) 100 mg PO Q8HR PRN Vital Signs: Temp Pulse Resp BP Pulse Ox 98.2 F 86 18 118/73 98 07/12/18 11:36 07/12/18 11:36 07/12/18 13:13 07/12/18 11:36 07/12/18 11:36 Oxygen Devices in Use Now: None Appearance: Pt laying in bed. She appears tired, but wakes when I enter and is alert throughout interview/PE. Eyes: No Scleral Icterus, PERRLA Ears/Nose/Mouth/Throat: NL Teeth, Lips, Gums, Clear Oropharnyx, Mucous Membranes Moist Neck: NL Appearance and Movements; NL JVP Respiratory: Symmetrical Chest Expansion and Respiratory Effort, Clear to Auscultation Cardiovascular: NL Sounds; No Murmurs; No JVD, RRR, No Edema Abdominal: NL Sounds; No Tenderness; No Distention, No Hepatosplenomegaly Extremities: No Edema, No Clubbing, Cyanosis Neurological: Alert and Oriented x 3, - - L side 5/5; R side 4-5/5 Result Diagrams: 07/08/18 14:32 07/11/18 05:40 Additional Lab and Data: Laboratory Results - last 24 hr 07/08/18 07/08/18 07/09/18 20:38 21:14 07:54 POC Glucose (mg/dL) 112 H 91 Lactic Acid 1.7 07/09/18 07/09/18 12:15 16:56 POC Glucose (mg/dL) 122 H 82 Lactic Acid Assess/Plan/Problems-Billing Assessment: 53 yo F PMH schizoaffective d/o, asthma, IDDM who p/w weakness and slurred speech. Imaging normal and neurology exam not reproducible, neuro possible TIA vs functional embellishment of sx. At this time no clear etiology for weakness. - Patient Problems (1) Weakness Comment: -neuroexam not consistent between what she is asked to do and what she does spontaneously or with distraction. MRI negative. CTH negative -ECHO no pFO. -Neuro has signed off -TSH, B12, Folate, Mg WNL -[place] low at 0.46 -RPR pending -Possibly polypharmacy leading to confusion or weakness -All goals, except stairs, met with PT, and pt would like d/c with outpatient PT over PATRICIA; in speaking with patient today, pt requesting PATRICIA; OT recommends rehab -Reasonable to continue plavix for 30 days, then change to asa- pt has allergy to ASA listed, stating reaction is she "passes out." Will continue plavix x30 days, then defer to PCP. (2) Dysarthria Comment: -Seems to have mild speech impediment. Though clears when more engaged according to son. (3) Schizoaffective disorder, depressive type Comment: Her pyschiatrist is Dr. Holcomb. Continue home clozapine, lithium, topamax, prozac temazepam -Check levels as above -Thank you for Psych consult; recommended continued outpatient medications with outpatient follow up to PCP for reduction in medication polypharmacy (4) Type 2 diabetes mellitus Comment: -FS show adequate control -Continue Glargine, Lispro ss -Metformin on hold (5) DVT prophylaxis Comment: -Heparin SQ (6) Full code status Status and Disposition: Medicine inpatient. PT has cleared for home.
[2018-07-12] MEDS: Lurasidone(*) 80 MG TAB PO SCH (17:26)
[2018-07-12] MEDS: Cyclobenzaprine TAB* 10 MG PO PRN (20:01)
[2018-07-12] MEDS: Temazepam CAP* 15 MG PO SCH (20:26)
[2018-07-12] MEDS: CloZAPine TAB* 100 MG TAB PO SCH (20:26)
[2018-07-12] MEDS: Lithium Carbonate ER* 450 MG TAB.ER PO SCH (20:26)
[2018-07-12] MEDS: Insulin GLARGINE(*) 1 UNITS UNIT SUBCUT SCH (20:27)
[2018-07-13] MEDS: Heparin VIAL(*) 5000 UNITS/ML VIAL (FIVE THOUSAND) SUBCUT SCH ×3 (05:51→23:06)
[2018-07-13] MEDS: Levothyroxine TAB* 88 MCG TAB PO SCH (05:51)
[2018-07-13 06:24] LABS: Hematocrit 40 % (33-41); Hemoglobin 13.3 g/dL (12.0-16.0); Mean Corpuscular HGB Conc 33 g/dL (31-36); Mean Corpuscular Hemoglobin 30 pg (27-31); Mean Corpuscular Volume 90 fL (80-97); Mean Platelet Volume 8.3 fL (7.4-10.4); Platelet Count 172 10^3/uL (150-450); Red Blood Count 4.45 10^6 /uL (3.70-4.87); Red Cell Distribution Width 15 % (10.5-15); White Blood Count 6.2 10^3/uL (3.5-10.8)
[2018-07-13] MEDS: Insulin LISPRO* 1 UNITS UNIT SUBCUT SCH ×4 (08:19→23:06)
[2018-07-13] MEDS: Multivitamins/Minerals TAB PO SCH (09:08)
[2018-07-13] MEDS: Topiramate TAB(*) 100 MG PO SCH ×2 (09:08→23:10)
[2018-07-13] MEDS: Pantoprazole TAB * 40 MG TAB PO SCH (09:08)
[2018-07-13] MEDS: Clopidogrel TAB* 75 MG PO SCH (09:08)
[2018-07-13] MEDS: FLUoxetine CAP* 20 MG PO SCH (09:08)
[2018-07-13] MEDS: Docusate CAP* 100 MG PO SCH ×2 (09:08→23:09)
[2018-07-13] MEDS: Atorvastatin* 10 MG TAB PO SCH (09:08)
[2018-07-13] MEDS: Fluticasone NASAL SPRAY 50MCG* 16 gm SPRAY BTL BOTH NARES SCH (09:08)
[2018-07-13] MEDS: Mometasone/Formoter 200/5 MDI INH SCH ×2 (09:12→19:29)
[2018-07-13] MEDS: traMADol TAB* 50 MG PO PRN (09:12)
--- NOTE | 2018-07-13 11:54 | CONSULT ---
Consult Consult: CC: " Nothing is new" Reason for consult: Right sided weakness with a history of poly-pharmacy and psychiatric history. She continues to report numbness in her right arm and toes. Patient seen for a follow up evaluation today. She reported no changes overnight. She denied suicidal ideation, intent or plan. She denied homicidal ideation intent or plan. She denied auditory and or visual hallucinations. Patient reported compliance with medication. APPEARANCE : 53 year old who appears stated age. Patient is malodourous, BEHAVIOR: Cooperative , calm EYE CONTACT: Fair PSYCHOMOTOR ACTIVITY: No psychomotor agitation or retardation. MOVEMENTS: No abnormal movements observed. SPEECH : Normal rate, rhythm, volume and tone. MOOD : "Okay " AFFECT : constricted THOUGHT PROCESS: formulated and organized in a logical, linear goal directed manner. No flight of ideas , No loose associations , or circumstantiality. THOUGHT CONTENT: no delusions, preoccupations, obsessions, phobias or preoccupations. PERCEPTION: No current auditory or visual hallucinations. Doesnt appear to be responding to internal cues. No evidence of depersonalization , de-realization, or illusions SUICIDALITY Denied suicidal ideation, intent or plan. HOMICIDALITY Denied homicidal ideation, intent or plan. Insight/judgment: Fair insight and judgment ORIENTATION: Oriented to self, location, and time. Diagnosis : Schizoaffective disorder currently in remission Assessment: 53 year old with history of schizoaffective disorder came to the hospital with numbness and weakness in her right arm and foot. Plan #Patient doesnt require inpatient psychiatric admission at this time. #Primary team to rule out medical causes # Outpatient follow up with her outpatient Psychiatrist Dr. Holcomb # Current presentation unlikely from current psychiatric treatment. #Psychiatry will sign off. Thank you for allowing the Psychiatric team to participate in her care. Please contact the [facility] for any further questions. Patient wants to live for new dog, compliant with medications and no access to firearms 07/10/18 07/10/18 07/10/18 05:23 11:57 16:39 WBC RBC Hgb Hct MCV MCH MCHC RDW Plt Count MPV Sodium Potassium Chloride Carbon Dioxide Anion Gap BUN Creatinine Est GFR ( Amer) Est GFR (Non-Af Amer) BUN/Creatinine Ratio Glucose POC Glucose (mg/dL) 83 Hemoglobin A1c 6.4 H Calcium Magnesium Vitamin B12 862 Folate 17.65 TSH 0.59 [place] 0.46 L 07/10/18 07/10/18 07/11/18 16:45 22:08 05:40 WBC RBC Hgb Hct MCV MCH MCHC RDW Plt Count MPV Sodium 142 Potassium 3.9 Chlor[place] 116 H Carbon Dioxide 20 L Anion Gap 6 BUN 12 Creatinine 1.18 H Est GFR ( Amer) 57.5 Est GFR (Non-Af Amer) 47.6 BUN/Creatinine Ratio 10.2 Glucose 120 H POC Glucose (mg/dL) 75 124 H Hemoglobin A1c Calcium 9.2 Magnesium 2.3 Vitamin B12 Folate TSH [place] 07/11/18 07/11/18 07/11/18 07:43 12:05 17:24 WBC RBC Hgb Hct MCV MCH MCHC RDW Plt Count MPV Sodium Potassium Chloride Carbon Dioxide Anion Gap BUN Creatinine Est GFR ( Amer) Est GFR (Non-Af Amer) BUN/Creatinine Ratio Glucose POC Glucose (mg/dL) 102 H 143 H 138 H Hemoglobin A1c Calcium Magnesium Vitamin B12 Folate TSH [place] 07/11/18 07/12/18 07/12/18 20:18 07:30 11:36 WBC RBC Hgb Hct MCV MCH MCHC RDW Plt Count MPV Sodium Potassium Chloride Carbon Dioxide Anion Gap BUN Creatinine Est GFR ( Amer) Est GFR (Non-Af Amer) BUN/Creatinine Ratio Glucose POC Glucose (mg/dL) 84 89 158 H Hemoglobin A1c Calcium Magnesium Vitamin B12 Folate TSH [place] 07/12/18 07/12/18 07/13/18 17:06 20:08 05:49 WBC 6.2 RBC 4.45 Hgb 13.3 Hct 40 MCV 90 MCH 30 MCHC 33 RDW 15 Plt Count 172 MPV 8.3 Sodium Potassium Chloride Carbon Dioxide Anion Gap BUN Creatinine Est GFR ( Amer) Est GFR (Non-Af Amer) BUN/Creatinine Ratio Glucose POC Glucose (mg/dL) 89 175 H Hemoglobin A1c Calcium Magnesium Vitamin B12 Folate TSH [place] 07/13/18 07:51 WBC RBC Hgb Hct MCV MCH MCHC RDW Plt Count MPV Sodium Potassium Chloride Carbon Dioxide Anion Gap BUN Creatinine Est GFR ( Amer) Est GFR (Non-Af Amer) BUN/Creatinine Ratio Glucose POC Glucose (mg/dL) 93 Hemoglobin A1c Calcium Magnesium Vitamin B12 Folate TSH [place]
[2018-07-13] MEDS: Cyclobenzaprine TAB* 10 MG PO PRN (12:07)
--- NOTE | 2018-07-13 16:51 | PN ---
Subjective Date of Service: 07/13/18 Interval History: VS: WNL Lab: Elevated Cr, within pt's baseline Pt states that she has been up with her walker standing and to and from bathroom. Today, she states that she feels "not well," stating she has a headache and is tired. She continues to have R wrist tingling that she not describes as a pain. She is able to move all extremities, but still c/o weakness in R leg. Pt denies CP, SOB, abd pain, n/v/d/c, pain in LE. Objective Active Medications: Albuterol (Ventolin Hfa Inhaler*) 2 puff INH Q4HR PRN Atorvastatin Calcium (Lipitor*) 10 mg PO DAILY MAG; Protocol Benzonatate (Tessalon Cap*) 200 mg PO TID PRN Clopidogrel Bisulfate (Plavix Tab*) 75 mg PO DAILY MAG Clozapine (Clozapine Tab*) 300 mg PO BEDTIME MAG Cyclobenzaprine HCl (Flexeril Tab*) 10 mg PO TID PRN Dextrose (D50w Syringe 50 Ml*) 12.5 gm IV PUSH .FOR FS < 60 - SS PRN Diphenhydramine HCl (Benadryl Po*) 25 mg PO TID PRN Docusate Sodium (Colace Cap*) 100 mg PO BID MAG Fluoxetine HCl (Prozac Cap*) 40 mg PO QAM MAG Fluticasone Propionate (Flonase Nasal [place] 50mcg*) 2 spray BOTH NARES DAILY MAG Heparin Sodium (Porcine) (Heparin Vial(*)) 5,000 units SUBCUT Q8HR MAG Insulin Glargine (Lantus(*)) 5 units SUBCUT BEDTIME MAG Insulin Human Lispro (Humalog*) 0 units SUBCUT ACHS MAG; Protocol Levothyroxine Sodium (Synthroid Tab*) 88 mcg PO DAILY@0600 MAG [place] Carbonate ([place] Carbonate Er Tab*) 900 mg PO BEDTIME MAG Lurasidone HCl (Latuda) 80 mg PO QPM MAG Magnesium Hydroxide (Milk Of Magnesia Liq*) 30 ml PO Q6H PRN Mometasone Furoate/Formoterol Fumar (Dulera 200/5 Mdi*) 2 puff INH BID MAG; Protocol Multivitamins/Minerals (Theragran/Minerals Tab*) 1 tab PO DAILY MAG Pantoprazole Sodium (Protonix Tab*) 40 mg PO DAILY MAG Temazepam (Restoril Cap*) 15 mg PO BEDTIME MAG Topiramate (Topamax(*)) 100 mg PO BID MAG Tramadol HCl (Ultram*) 100 mg PO Q8HR PRN Vital Signs: Temp Pulse Resp BP Pulse Ox 97.7 F 80 16 123/63 98 07/13/18 11:45 07/13/18 11:45 07/13/18 15:17 07/13/18 11:45 07/13/18 11:45 Oxygen Devices in Use Now: None Appearance: Pt laying in bed sleeping. She wakes easily and stays awake during our conversation. She appears to be tired, but in no acute distress. Eyes: No Scleral Icterus, PERRLA, - - IOMI Ears/Nose/Mouth/Throat: NL Teeth, Lips, Gums, Clear Oropharnyx, Mucous Membranes Moist, - - Tongue ML Neck: NL Appearance and Movements; NL JVP, Trachea Midline Respiratory: Symmetrical Chest Expansion and Respiratory Effort, Clear to Auscultation Cardiovascular: NL Sounds; No Murmurs; No JVD, RRR, No Edema Abdominal: NL Sounds; No Tenderness; No Distention, No Hepatosplenomegaly Extremities: No Edema, No Clubbing, Cyanosis Neurological: Alert and Oriented x 3, NL Sensation, - - B/l LE and LLE 5/5, RLE 4/5. Result Diagrams: 07/13/18 05:49 07/11/18 05:40 Additional Lab and Data: Laboratory Results - last 24 hr 07/08/18 07/08/18 07/09/18 20:38 21:14 07:54 POC Glucose (mg/dL) 112 H 91 Lactic Acid 1.7 07/09/18 07/09/18 12:15 16:56 POC Glucose (mg/dL) 122 H 82 Lactic Acid Assess/Plan/Problems-Billing Assessment: 53 yo F PMH schizoaffective d/o, asthma, IDDM who p/w weakness and slurred speech. Imaging normal and neurology exam not reproducible, neuro possible TIA vs functional embellishment of sx. At this time no clear etiology for weakness. - Patient Problems (1) Weakness Comment: -neuroexam not consistent between what she is asked to do and what she does spontaneously or with distraction. MRI negative. CTH negative. ECHO no pFO. -Neuro has signed off -TSH, B12, Folate, Mg WNL -[place] low at 0.46 -RPR pending -Possibly polypharmacy leading to confusion or weakness; will defer to outpatient psych and PCP -All goals, except stairs, met with PT, and pt would like d/c with outpatient PT over [facility]; in speaking with patient today, pt requesting PATRICIA; OT recommends rehab -Reasonable to continue plavix for 30 days, then change to asa- pt has allergy to ASA listed, stating reaction is she "passes out." Will continue plavix x30 days, then defer to PCP. (2) Right wrist pain Comment: -X-ray ordered, pending (3) Dysarthria Comment: -Seems to have mild speech impediment. Though clears when more engaged according to son. (4) Schizoaffective disorder, depressive type Comment: Her pyschiatrist is Dr. Holcomb. Continue home clozapine, lithium, topamax, prozac temazepam -Check levels as above -Thank you for Psych consult; recommended continued outpatient medications with outpatient follow up to PCP for reduction in medication polypharmacy (5) Type 2 diabetes mellitus Comment: -FS show adequate control -Continue Glargine, Lispro ss -Metformin on hold (6) DVT prophylaxis Comment: -Heparin SQ (7) Full code status Status and Disposition: Medicine inpatient. PT has cleared for home.
[2018-07-13] MEDS: Lurasidone(*) 80 MG TAB PO SCH (17:42)
[2018-07-13] MEDS: Insulin GLARGINE(*) 1 UNITS UNIT SUBCUT SCH (23:06)
[2018-07-13] MEDS: CloZAPine TAB* 100 MG TAB PO SCH (23:09)
[2018-07-13] MEDS: Lithium Carbonate ER* 450 MG TAB.ER PO SCH (23:10)
[2018-07-13] MEDS: Temazepam CAP* 15 MG PO SCH (23:10)
[2018-07-14] MEDS: Heparin VIAL(*) 5000 UNITS/ML VIAL (FIVE THOUSAND) SUBCUT SCH ×3 (07:12→22:24)
[2018-07-14] MEDS: Levothyroxine TAB* 88 MCG TAB PO SCH (07:12)
[2018-07-14] MEDS: Insulin LISPRO* 1 UNITS UNIT SUBCUT SCH ×4 (09:06→22:25)
[2018-07-14] MEDS: Mometasone/Formoter 200/5 MDI INH SCH ×2 (09:36→19:18)
[2018-07-14] MEDS: Fluticasone NASAL SPRAY 50MCG* 16 gm SPRAY BTL BOTH NARES SCH (10:27)
[2018-07-14] MEDS: Magnesium Hydroxide LIQ* 30 ML UDC PO PRN (10:27)
[2018-07-14] MEDS: traMADol TAB* 50 MG PO PRN ×2 (10:27→18:24)
[2018-07-14] MEDS: Clopidogrel TAB* 75 MG PO SCH (10:28)
[2018-07-14] MEDS: Atorvastatin* 10 MG TAB PO SCH (10:28)
[2018-07-14] MEDS: Docusate CAP* 100 MG PO SCH ×2 (10:28→22:24)
[2018-07-14] MEDS: Multivitamins/Minerals TAB PO SCH (10:28)
[2018-07-14] MEDS: Pantoprazole TAB * 40 MG TAB PO SCH (10:28)
[2018-07-14] MEDS: FLUoxetine CAP* 20 MG PO SCH (10:28)
[2018-07-14] MEDS: Topiramate TAB(*) 100 MG PO SCH ×2 (10:29→22:24)
--- NOTE | 2018-07-14 16:51 | PN ---
Subjective Date of Service: 07/14/18 Interval History: VS: WNL Pt is sitting in bed. Continues to c/o R wrist pain and b/l numbness tingling. She states that numb/tingling has occurred intermittently for quite some time. She states she was up with PT today and that she thinks she did well, but found it difficult. She denies CP, SOB, cough,a bd pain, n/v. She is currently awaiting placement in [facility] for weakness. Objective Active Medications: Albuterol (Ventolin Hfa Inhaler*) 2 puff INH Q4HR PRN Atorvastatin Calcium (Lipitor*) 10 mg PO DAILY MAG; Protocol Benzonatate (Tessalon Cap*) 200 mg PO TID PRN Clopidogrel Bisulfate (Plavix Tab*) 75 mg PO DAILY MAG Clozapine (Clozapine Tab*) 300 mg PO BEDTIME MAG Cyclobenzaprine HCl (Flexeril Tab*) 10 mg PO TID PRN Dextrose (D50w Syringe 50 Ml*) 12.5 gm IV PUSH .FOR FS < 60 - SS PRN Diphenhydramine HCl (Benadryl Po*) 25 mg PO TID PRN Docusate Sodium (Colace Cap*) 100 mg PO BID MAG Fluoxetine HCl (Prozac Cap*) 40 mg PO QAM MAG Fluticasone Propionate (Flonase Nasal [place] 50mcg*) 2 spray BOTH NARES DAILY MAG Heparin Sodium (Porcine) (Heparin Vial(*)) 5,000 units SUBCUT Q8HR MAG Insulin Glargine (Lantus(*)) 5 units SUBCUT BEDTIME MAG Insulin Human Lispro (Humalog*) 0 units SUBCUT ACHS MAG; Protocol Levothyroxine Sodium (Synthroid Tab*) 88 mcg PO DAILY@0600 MAG [place] Carbonate ([place] Carbonate Er Tab*) 900 mg PO BEDTIME MAG Lurasidone HCl (Latuda) 80 mg PO QPM MAG Magnesium Hydroxide (Milk Of Magnesia Liq*) 30 ml PO Q6H PRN Mometasone Furoate/Formoterol Fumar (Dulera 200/5 Mdi*) 2 puff INH BID MAG; Protocol Multivitamins/Minerals (Theragran/Minerals Tab*) 1 tab PO DAILY MAG Pantoprazole Sodium (Protonix Tab*) 40 mg PO DAILY MAG Temazepam (Restoril Cap*) 15 mg PO BEDTIME MAG Topiramate (Topamax(*)) 100 mg PO BID MAG Tramadol HCl (Ultram*) 100 mg PO Q8HR PRN Vital Signs: Temp Pulse Resp BP Pulse Ox 98.1 F 74 24 111/67 98 07/14/18 15:44 07/14/18 15:44 07/14/18 15:44 07/14/18 15:44 07/14/18 15:44 Oxygen Devices in Use Now: None Appearance: Pt is laying in bed. She appears to be in no acute distress. Eyes: No Scleral Icterus, PERRLA Ears/Nose/Mouth/Throat: NL Teeth, Lips, Gums, Clear Oropharnyx, Mucous Membranes Moist Neck: NL Appearance and Movements; NL JVP, Trachea Midline Respiratory: Symmetrical Chest Expansion and Respiratory Effort, Clear to Auscultation Cardiovascular: NL Sounds; No Murmurs; No JVD, RRR, No Edema Abdominal: No Hepatosplenomegaly, - - BS normoactive. Nondistended. Grimaces and states abd hurts with palpation. Lymphatic: No Cervical Adenopathy Extremities: No Edema, No Clubbing, Cyanosis Neurological: Alert and Oriented x 3, - - Nontender snuff box at R wrist, but tenderness at wrist joing. UE 5/5, LLE 5/5, RLE 4/5. Result Diagrams: 07/13/18 05:49 07/11/18 05:40 Additional Lab and Data: Laboratory Results - last 24 hr 07/08/18 07/08/18 07/09/18 20:38 21:14 07:54 POC Glucose (mg/dL) 112 H 91 Lactic Acid 1.7 07/09/18 07/09/18 12:15 16:56 POC Glucose (mg/dL) 122 H 82 Lactic Acid Assess/Plan/Problems-Billing Assessment: 53 yo F PMH schizoaffective d/o, asthma, IDDM who p/w weakness and slurred speech. Imaging normal and neurology exam not reproducible, neuro possible TIA vs functional embellishment of sx. At this time no clear etiology for weakness. - Patient Problems (1) Weakness Comment: -neuroexam not consistent between what she is asked to do and what she does spontaneously or with distraction. MRI negative. CTH negative. ECHO no pFO. -Neuro has signed off -TSH, B12, Folate, Mg WNL -[place] low at 0.46 -RPR pending -Possibly polypharmacy leading to confusion or weakness; will defer to outpatient psych and PCP -All goals, except stairs, met with PT, and pt would like d/c with outpatient PT over [facility]; in speaking with patient today, pt requesting PATRICIA; OT recommends rehab -Reasonable to continue plavix for 30 days, then change to asa- pt has allergy to ASA listed, stating reaction is she "passes out." Will continue plavix x30 days, then defer to PCP. 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 Though clears when more engaged according to son. (4) Schizoaffective disorder, depressive type Comment: Her pyschiatrist is Dr. Holcomb. Continue home clozapine, lithium, topamax, prozac temazepam -Check levels as above -Thank you for Psych consult; recommended continued outpatient medications with outpatient follow up to PCP for reduction in medication polypharmacy (5) Type 2 diabetes mellitus Comment: -FS show adequate control -Continue Glargine, Lispro ss -Metformin on hold (6) DVT prophylaxis Comment: -Heparin SQ (7) Full code status Status and Disposition: Medicine inpatient. PT has cleared for home.
[2018-07-14] MEDS ORDERED: NS 0.9% 1000 ML** 1,000 ML IV SCH (17:00)
[2018-07-14] MEDS ORDERED: Acetaminophen TAB* 325 MG PO PRN (17:03)
[2018-07-14] MEDS: Lurasidone(*) 80 MG TAB PO SCH (18:24)
[2018-07-14] MEDS: Insulin GLARGINE(*) 1 UNITS UNIT SUBCUT SCH (22:22)
[2018-07-14] MEDS: CloZAPine TAB* 100 MG TAB PO SCH (22:23)
[2018-07-14] MEDS: Lithium Carbonate ER* 450 MG TAB.ER PO SCH (22:23)
[2018-07-14] MEDS: Temazepam CAP* 15 MG PO SCH (22:24)
[2018-07-15] MEDS: Levothyroxine TAB* 88 MCG TAB PO SCH (06:15)
[2018-07-15] MEDS: Heparin VIAL(*) 5000 UNITS/ML VIAL (FIVE THOUSAND) SUBCUT SCH ×3 (06:15→22:01)
[2018-07-15] MEDS: Mometasone/Formoter 200/5 MDI INH SCH ×2 (08:06→20:51)
[2018-07-15] MEDS: Insulin LISPRO* 1 UNITS UNIT SUBCUT SCH ×4 (09:55→22:00)
[2018-07-15] MEDS: Magnesium Hydroxide LIQ* 30 ML UDC PO PRN ×2 (09:57→17:52)
[2018-07-15] MEDS: Pantoprazole TAB * 40 MG TAB PO SCH (09:58)
[2018-07-15] MEDS: Multivitamins/Minerals TAB PO SCH (09:58)
[2018-07-15] MEDS: Atorvastatin* 10 MG TAB PO SCH (09:58)
[2018-07-15] MEDS: FLUoxetine CAP* 20 MG PO SCH (09:58)
[2018-07-15] MEDS: Docusate CAP* 100 MG PO SCH ×2 (09:58→22:00)
[2018-07-15] MEDS: Fluticasone NASAL SPRAY 50MCG* 16 gm SPRAY BTL BOTH NARES SCH (09:59)
[2018-07-15] MEDS: Topiramate TAB(*) 100 MG PO SCH ×2 (09:59→22:00)
[2018-07-15] MEDS: Clopidogrel TAB* 75 MG PO SCH (09:59)
[2018-07-15 10:25] LABS: Calcium 9.2 mg/dL (8.6-10.3); EGFR African American 56.4 (>60); EGFR Non-African American 46.6 (>60); Potassium 3.6 mmol/L (3.5-5.0)
[2018-07-15] MEDS: traMADol TAB* 50 MG PO PRN (11:15)
[2018-07-15] MEDS ORDERED: Sodium Phosphate ADULT ENEMA* 118 ml bottle PR PRN (15:43)
--- NOTE | 2018-07-15 16:50 | PN ---
Subjective Date of Service: 07/15/18 Interval History: VS: WNL Tele: NSR Pt continues to report numbness/tingling in b/l feet and RUE. X-ray of R wrist shows OA at base of thumb, but otherwise negative. Symptoms she describes are consistent with neuropathy with stocking, glove pattern numbness/tingling. We discussed this, and I suggested discussing possible gabapentin with PCP in outpatient setting, as she is on many medications and would need monitoring or reduction in polypharmacy; she seems agreeable with this. Despite polypharmacy , she is appears medically safe for outpatient rehab with [facility]. She was up walking today, and states that it went a little better than yesterday. She denies CP, SOB, cough, fever, abd pain, n/v/d. She states she has not have a BM in several days. She denies pain or swelling in the calves. Objective Active Medications: Acetaminophen (Tylenol Tab*) 650 mg PO Q6H PRN Albuterol (Ventolin Hfa Inhaler*) 2 puff INH Q4HR PRN Atorvastatin Calcium (Lipitor*) 10 mg PO DAILY MAG; Protocol Benzonatate (Tessalon Cap*) 200 mg PO TID PRN Clopidogrel Bisulfate (Plavix Tab*) 75 mg PO DAILY MAG Clozapine (Clozapine Tab*) 300 mg PO BEDTIME MAG Cyclobenzaprine HCl (Flexeril Tab*) 10 mg PO TID PRN Dextrose (D50w Syringe 50 Ml*) 12.5 gm IV PUSH .FOR FS < 60 - SS PRN Diphenhydramine HCl (Benadryl Po*) 25 mg PO TID PRN Docusate Sodium (Colace Cap*) 100 mg PO BID MAG Fluoxetine HCl (Prozac Cap*) 40 mg PO QAM MAG Fluticasone Propionate (Flonase Nasal [place] 50mcg*) 2 spray BOTH NARES DAILY MAG Heparin Sodium (Porcine) (Heparin Vial(*)) 5,000 units SUBCUT Q8HR MAG Insulin Glargine (Lantus(*)) 5 units SUBCUT BEDTIME MAG Insulin Human Lispro (Humalog*) 0 units SUBCUT ACHS MAG; Protocol Levothyroxine Sodium (Synthroid Tab*) 88 mcg PO DAILY@0600 MAG [place] Carbonate ([place] Carbonate Er Tab*) 900 mg PO BEDTIME MAG Lurasidone HCl (Latuda) 80 mg PO QPM MAG Magnesium Hydroxide (Milk Of Magnesia Liq*) 30 ml PO Q6H PRN Mometasone Furoate/Formoterol Fumar (Dulera 200/5 Mdi*) 2 puff INH BID MAG; Protocol Multivitamins/Minerals (Theragran/Minerals Tab*) 1 tab PO DAILY MAG Pantoprazole Sodium (Protonix Tab*) 40 mg PO DAILY MAG Polyethylene Glycol/Electrolytes (Miralax*) 17 gm PO DAILY PRN Senna (Senokot Tab*) 1 tab PO BEDTIME PRN Sodium Biphosphate/Sodium Phosphate ([place] Enema*) 1 bottle MT DAILY PRN Temazepam (Restoril Cap*) 15 mg PO BEDTIME MAG Topiramate (Topamax(*)) 100 mg PO BID MAG Tramadol HCl (Ultram*) 100 mg PO Q8HR PRN Vital Signs: Temp Pulse Resp BP Pulse Ox 98.3 F 77 20 115/69 96 07/15/18 13:48 07/15/18 13:48 07/15/18 15:29 07/15/18 13:48 07/15/18 13:48 Oxygen Devices in Use Now: None Appearance: Pt is is bed with HOB slightly elevated. She is in no acute distress. Eyes: No Scleral Icterus, PERRLA Ears/Nose/Mouth/Throat: NL Teeth, Lips, Gums, Clear Oropharnyx, Mucous Membranes Moist, - - Tongue ML Neck: NL Appearance and Movements; NL JVP, Trachea Midline Respiratory: Symmetrical Chest Expansion and Respiratory Effort, Clear to Auscultation Cardiovascular: NL Sounds; No Murmurs; No JVD, RRR, No Edema Abdominal: NL Sounds; No Tenderness; No Distention, No Hepatosplenomegaly Extremities: No Edema, No Clubbing, Cyanosis Neurological: Alert and Oriented x 3, NL Sensation, NL Muscle Strength and Tone Result Diagrams: 07/13/18 05:49 07/15/18 09:47 Additional Lab and Data: Laboratory Results - last 24 hr 07/08/18 07/08/18 07/09/18 20:38 21:14 07:54 POC Glucose (mg/dL) 112 H 91 Lactic Acid 1.7 07/09/18 07/09/18 12:15 16:56 POC Glucose (mg/dL) 122 H 82 Lactic Acid Assess/Plan/Problems-Billing Assessment: 53 yo F PMH schizoaffective d/o, asthma, IDDM who p/w weakness and slurred speech. Imaging normal and neurology exam not reproducible, neuro possible TIA vs functional embellishment of sx. At this time no clear etiology for weakness. - Patient Problems (1) Weakness Comment: -neuroexam not consistent between what she is asked to do and what she does spontaneously or with distraction. MRI negative. CTH negative. ECHO no pFO. Neuro signed off. -Possibly polypharmacy leading to confusion or weakness; will defer to outpatient psych and PCP -Reasonable to continue plavix for 30 days, then change to asa- pt has allergy to ASA listed, stating reaction is she "passes out." Will continue plavix x30 days, then defer to PCP. 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 Though clears when more engaged according to son. (4) Schizoaffective disorder, depressive type Comment: Her pyschiatrist is Dr. Holcomb. Continue home clozapine, lithium, topamax, prozac temazepam -Check levels as above -Thank you for Psych consult; recommended continued outpatient medications with outpatient follow up to PCP for reduction in medication polypharmacy (5) Type 2 diabetes mellitus Comment: -FS show adequate control -Continue Glargine, Lispro ss -Metformin on hold (6) DVT prophylaxis Comment: -Heparin SQ (7) Full code status Status and Disposition: Inpatient. Likely d/c to [facility] for PATRICIA on 07/16/2018.
[2018-07-15] MEDS: Senna TAB PO PRN (17:52)
[2018-07-15] MEDS: Lurasidone(*) 80 MG TAB PO SCH (17:52)
[2018-07-15] MEDS: Polyethylene Glycol 3350* 17 GM PACKET PO PRN (17:52)
[2018-07-15] MEDS: Insulin GLARGINE(*) 1 UNITS UNIT SUBCUT SCH (21:59)
[2018-07-15] MEDS: Lithium Carbonate ER* 450 MG TAB.ER PO SCH (22:00)
[2018-07-15] MEDS: CloZAPine TAB* 100 MG TAB PO SCH (22:00)
[2018-07-15] MEDS: Temazepam CAP* 15 MG PO SCH (22:01)
[2018-07-16] MEDS: Levothyroxine TAB* 88 MCG TAB PO SCH (06:05)
[2018-07-16] MEDS: Heparin VIAL(*) 5000 UNITS/ML VIAL (FIVE THOUSAND) SUBCUT SCH (06:05)
[2018-07-16] MEDS: Mometasone/Formoter 200/5 MDI INH SCH (08:34)
[2018-07-16] MEDS: Insulin LISPRO* 1 UNITS UNIT SUBCUT SCH ×2 (08:37→12:04)
[2018-07-16] MEDS: Polyethylene Glycol 3350* 17 GM PACKET PO PRN (08:55)
[2018-07-16] MEDS: Magnesium Hydroxide LIQ* 30 ML UDC PO PRN (08:55)
[2018-07-16] MEDS: Topiramate TAB(*) 100 MG PO SCH (08:56)
[2018-07-16] MEDS: Pantoprazole TAB * 40 MG TAB PO SCH (08:56)
[2018-07-16] MEDS: Atorvastatin* 10 MG TAB PO SCH (08:56)
[2018-07-16] MEDS: Docusate CAP* 100 MG PO SCH (08:56)
[2018-07-16] MEDS: Multivitamins/Minerals TAB PO SCH (08:56)
[2018-07-16] MEDS: FLUoxetine CAP* 20 MG PO SCH (08:56)
[2018-07-16] MEDS: Senna TAB PO PRN (08:56)
[2018-07-16] MEDS: Clopidogrel TAB* 75 MG PO SCH (08:57)
[2018-07-16] MEDS: Fluticasone NASAL SPRAY 50MCG* 16 gm SPRAY BTL BOTH NARES SCH (08:57)
--- NOTE | 2018-07-16 11:01 | DS ---
CC: Dr. Jason Bianchi; [facility] DATE OF ADMISSION: 07/08/2018. DATE OF DISCHARGE: 07/16/2018. PRIMARY CARE PHYSICIAN: Dr. Jason Bianchi. ATTENDING PHYSICIAN: Dr. Brayden Smith* (dictated by Nicole Molina NP). PRIMARY DIAGNOSES: 1. Weakness, likely secondary to polypharmacy. 2. Polyneuropathy. SECONDARY DIAGNOSES: 1. Schizoaffective disorder. 2. Diabetes mellitus type 2. STUDIES WHILE IN THE HOSPITAL: 1. Brain CT on 07/08/2018, reads as: No acute intracranial pathology. 2. Chest x-ray on 07/08/2018, reads as: Low lung volumes for this patient with associated subsegmental atelectasis. 3. EKG on 07/08/2018 showed normal sinus rhythm with a rate of 82, QTC 480, inverted T-waves in V1 and V2. This is consistent with previous EKG's on file. 4. Head CTA on 07/08/2018, reads as: No internal carotid artery stenosis by NASCET criteria. No aneurysm, vascular malformation, occlusion, or stenosis of the visualized intracranial circulation. 5. Brain MRI on 07/08/2018, reads as: No acute intracranial abnormality. 6. Transthoracic echocardiogram on 07/09/2018, reads as: Suboptimal imaging. Mild concentric left ventricular hypertrophy is observed. The estimated ejection fraction is 55 to 60 percent. Nondiagnostic Doppler evaluation for diastolic dysfunction. The left atrium is mild to moderately dilated. The bubble study is negative. A patent foramen ovale is not demonstrated by agitated contrast. There is trace tricuspid regurgitation. 7. Wrist x-ray on 07/13/2018, reads as: Osteoarthritis at the basal joint of the thumb. CONSULTATIONS WHILE IN THE HOSPITAL: 1. The patient was seen in consultation by Dr. Bee from Neurology on 2018. 2. The patient was seen in consultation by Dr. Tilley from Neurology on 2018. 3. The patient was seen in consultation by Dr. Hernandez from Psychiatry on 2018. 4. The patient was seen in consultation by Dr. Garvey from Psychiatry on 2018. HISTORY OF PRESENT ILLNESS/HOSPITAL COURSE: Ms. Urban is a 53-year-old female with a past medical history of type 2 diabetes, diabetic neuropathy, schizoaffective disorder, asthma, developmental delay, and right upper extremity DVT who presented to the emergency room on 07/08/2018 with complaints of right- sided weakness. Please see the history and physical by Dr. Castañeda for a complete summary of the events leading up to this hospitalization. In short, the patient was a poor historian, though was noted by her neighbor to have garbled speech and right-sided weakness. She was brought to the emergency room where a code carl was called. The patient was noted to have an NIH stroke scale of 3, though was out of the window for tPA. In the emergency room, she was noted to have an abnormal speech pattern consistent with her baseline, though continued to report weakness. She was seen in the emergency room by Dr. Bee from Neurology who recommended starting the patient on Plavix. The patient was admitted by the Hospitalist service. Imaging was completed as noted above and there were no significant findings. The patient had a lipid panel notable for an elevated LDL at 122. The patient is noted to have an ALLERGY TO ASPIRIN (syncope), but it is not clear if this represents a true drug allergy. Neurology recommended treating her LDL for a target goal of 70 and continuing the patient on Plavix. There was no evidence of CVA, though at that point TIA was still in the differential. The patient was seen by Dr. Tilley from Neurology who did not have any acute concerns and felt the patient had a functional exam. Neurology signed off at that time. The patient was noted by multiple providers to have a neuro exam not consistent between what she was instructed to do and what she did spontaneous or with distraction. It was felt as though polypharmacy may have been contributing to her confusion and/or weakness. She was noted to have a normal TSH, B12, folate , and magnesium. The patient was seen by Psychiatry who did not have any acute concerns. They felt as though conversion disorder was unlikely and recommended follow-up with her outpatient psychiatrist, Dr. Holcomb. They did not recommend any medication changes. Psychiatry signed off on her case. The patient did begin to complain of right wrist pain and an x-ray was completed as noted above. Her symptoms are consistent with neuropathy. The patient does have a known history of diabetic neuropathy, so this seems likely as there were no acute findings on x-ray. The patient continued to demonstrate lower extremity weakness and it was determined that the patient would benefit from subacute rehab. The patient has been offered a bed at [facility] for subacute rehab and has accepted. On exam today, her speech pattern is within normal limits. She reports feeling well and has no complaints. She does feel as though her weakness is somewhat improved and she has been up ambulating with assistance and has been able to use her right hand without significant difficulty. On exam, she has decreased handgrips bilaterally, approximately 3/5. Lower extremity strength is 4/5 bilaterally. There are no other focal neurological deficits. Ms. Urban is stable for discharge today. Vital signs are as follows: Temperature 97.8, heart rate 60, respiratory rate 18, oxygen saturation 97 percent on room air, blood pressure 115/58. DISCHARGE MEDICATIONS: New medications: 1. Clopidogrel 75 mg p.o. daily for 30 days (this was started on 07/09/2018). 2. MiraLax 17 gm p.o. daily prn constipation. Continued medications: 1. Albuterol MDI 2 puffs q.4 hours prn shortness of breath. 2. Tessalon 200 mg p.o. t.i.d. prn cough. 3. Symbicort 160/4.5 two puffs b.i.d. 4. Clozapine 300 mg p.o. at bedtime. 5. Flexeril 10 mg p.o. t.i.d. prn spasms. 6. Benadryl 25 mg p.o. t.i.d. prn allergy symptoms. 7. Docusate 100 mg p.o. b.i.d. 8. Fluoxetine 40 mg p.o. daily. 9. Fluticasone 2 sprays both nares daily. 10. Levothyroxine 88 mcg p.o. daily. 11. [place] 900 mg p.o. at bedtime. 12. Latuda 80 mg p.o. at bedtime. 13. Milk of Magnesia 30 ml p.o. q.6 hours prn constipation. 14. Multivitamin one tab p.o. daily. 15. Rosuvastatin 5 mg p.o. daily. 16. Temazepam 15 to 30 mg p.o. at bedtime. 17. Topamax 100 mg p.o. b.i.d. 18. Acetaminophen 1,000 mg p.o. b.i.d. prn pain. 19. Glargine 20 units subcu daily. 20. Ketoconazole 2% one application topical b.i.d. prn itching. 21. Metformin 1,000 mg p.o. b.i.d. 22. Pantoprazole 40 mg p.o. daily. Discontinued medications: 1. Tizanidine. 2. Tramadol. DISCHARGE PLAN: Ms. Urban will be discharged to subacute rehab at [facility]. Medications are noted above. The patient has been started on Plavix which she should take for a total of 30 days. This was started on 07/09/2018. It is recommended that she should then transition to aspirin, though she does have an ALLERGY LISTED TO ASPIRIN. It is unclear if this is accurate, so she should follow up with her primary care provider to determine further management after discontinuation of the Plavix. She can continue her other usual medications as noted above, except for the Tizanidine and the Tramadol which have been discontinued as these may have been contributing to her polypharmacy. The patient may potentially benefit from Gabapentin for management of her neuropathic pain, though because of her polypharmacy, I will defer further management to her PCP. She will need to follow up with her primary care provider after discharge from rehab. I would recommend follow up four to seven days after discharge. She will also need to follow up with Dr. Holcomb. She has an appointment on 08/18/2018 at 10:30. Any further medication adjustments can be made at that time. She should return to the emergency room or nearest hospital for any worsening of symptoms, shortness of breath, lightheadedness, dizziness, chest discomfort, high fevers, chills, night sweats, loss of consciousness or any other worrisome signs or symptoms. ACTIVITY: As tolerated. DIET: Regular as tolerated. CONDITION ON DISCHARGE: Stable. DISPOSITION: [facility] facility, [facility]. This is a summarized report of a complex medical history and hospital stay. For further details, please see the entire medical record. TIME SPENT: Approximately 40 minutes were spent on this discharge. NICOLE MOLINA, TRANSMISSION BUILDER [id number]/[facility] #: [id number] [place]
[2018-07-16 12:12] VITALS: BP 126/74
== END 2018-07-16 14:00 | DRG 948 ==
LOC: ED 13:49 → MEDTELE 15:35 → MED 07-11 18:51
PROVIDERS: ADMIT Internal Medicine; ATTEND Internal Medicine
DX: R53.1 Weakness (principal); E87.2 Acidosis; E78.00 Pure hypercholesterolemia, unspecified; R29.703 NIHSS score 3; E11.42 Type 2 diabetes mellitus with diabetic polyneuropathy; I07.1 Rheumatic tricuspid insufficiency; R47.1 Dysarthria and anarthria; F25.1 Schizoaffective disorder, depressive type; E66.9 Obesity, unspecified; J45.909 Unspecified asthma, uncomplicated; R62.50 Unspecified lack of expected normal physiological development in childhood; T50.905A Adverse effect of unspecified drugs, medicaments and biological substances, initial encounter; Z88.6 Allergy status to analgesic agent; Z88.1 Allergy status to other antibiotic agents; Z91.018 Allergy to other foods; Z86.718 Personal history of other venous thrombosis and embolism; Z98.51 Tubal ligation status; Z82.49 Family history of ischemic heart disease and other diseases of the circulatory system; Z83.3 Family history of diabetes mellitus; Y92.9 Unspecified place or not applicable; Z79.84 Long term (current) use of oral hypoglycemic drugs; Z68.39 Body mass index [BMI] 39.0-39.9, adult; Z68.37 Body mass index [BMI] 37.0-37.9, adult
CPT/HCPCS: 36415; 70450; 70496; 70498; 70551; 71045; 80048; 80053; 80061; 80178; 81003; 82607; 82746; 83036; 83605; 83735; 84443; 84484; 85025; 85027; 85610; 85730; 86780; 86850; 86900; 86901; 93005; 93306; 94640; 99284; A9270-GY; G8978-GP-CJ; G8978-GP-CK; G8979-GP-CI; G8987-GO-CK; G8988-GO-CI; J1644; Q9967

== ENCOUNTER 2018-07-27 09:24 | Inpatient (IN) | payer MEDICARE, MEDICAID ==
[2018-07-27] MEDS ORDERED: Pantoprazole IV* 40 MG IV ONE (10:23)
[2018-07-27] MEDS ORDERED: Lidocaine 2% JELLY* 10 ML JELLY TOPICAL ONE (10:24)
--- NOTE | 2018-07-27 10:52 | ED ---
Nausea/Vomiting/Diarrhea HPI - HPI Summary HPI Summary: 53 year old female presents to the emergency department for evaluation of vomiting for 4 days. She states that for the past 2 days she has been seeing "bloody clots" in her vomit. She last noticed it at 9:30pm last night. Pt also reports and "achy" abdominal pain and "yellow" diarrhea. For about 1-2 days she states she is experiencing dysuria and is seeing "a little bit" of blood in her urine. She denies fever, chills, chest pain, SOB, cough, congestion, blood in her stools, and any sick contacts. Pt has a history of multiple duodenal ulcers and H. pylori. - History of Current Complaint Chief Complaint: EDAbdPain Stated Complaint: ABD PAIN/VOMITING PER EMS Time Seen by Provider: 07/27/18 09:58 Hx Obtained From: Patient Hx Last Menstrual Period: april 29 Pain Intensity: 9 - Allergies/Home Medications Allergies/Adverse Reactions: Allergies Allergy/AdvReac Type Severity Reaction Status Date / Time aspirin Allergy Unknown Verified 06/25/18 20:16 Reaction Details Cephalosporins Allergy Rash Verified 06/25/18 20:16 orange Allergy Swelling Verified 06/25/18 20:16 orange juice Allergy Swelling Verified 06/25/18 20:16 amoxicillin AdvReac Nausea And Verified 06/25/18 20:16 Vomiting Tetracyclines AdvReac Nausea And Verified 06/25/18 20:16 Vomiting PMH/Surg Hx/FS Hx/Imm Hx Previously Healthy: No Endocrine/Hematology History: Reports: Hx Diabetes, Hx Thyroid Disease Denies: Hx Anticoagulant Therapy Cardiovascular History: Reports: Hx Deep Vein Thrombosis, Hx Hypercholesterolemia Denies: Hx Congestive Heart Failure, Hx Hypertension, Hx Myocardial Infarction, Hx Pacemaker/ICD Respiratory History: Reports: Hx Asthma Denies: Hx Chronic Obstructive Pulmonary Disease (COPD), Hx Lung Cancer, Hx Pneumonia, Hx Pulmonary Embolism GI History: Reports: Hx Ulcer History: Denies: Hx Dialysis, Hx Renal Disease Sensory History: Denies: Hx Contacts or Glasses, Hx Hearing Aid Opthamlomology History: Denies: Hx Contacts or Glasses Neurological History: Denies: Hx Dementia, Hx Migraine, Hx Seizures, Hx Transient Ischemic Attacks (TIA) Psychiatric History: Reports: Hx Inpatient Treatment, Hx Community Mental Health Tx, Hx Schizophrenia, Hx Suicide Attempt Denies: Hx Anxiety, Hx Eating Disorder, Hx Depression, Hx Panic Disorder, Hx Bipolar Disorder, Hx of Violent Episodes Against Others - Cancer History Hx Chemotherapy: No Hx Radiation Therapy: No - Surgical History Surgery Procedure, Year, and Place: tubal ligation 1985 Infectious Disease History: No Infectious Disease History: Denies: Hx Hepatitis, Hx Human Immunodeficiency Virus (HIV), Traveled Outside the [place] in Last 30 Days - Family History Known Family History: Positive: Cardiac Disease, Hypertension, Diabetes - Social History Alcohol Use: None Hx Substance Use: No Substance Use Type: Reports: None Hx Tobacco Use: No Smoking Status (MU): Never Smoked Tobacco Amount Used/How Often: states that she smoked one cigarette when she was 16 yrs. old Have You Smoked in the Last Year: No Review of Systems Constitutional: Negative Negative: Fever, Chills, Fatigue Positive: Sore Throat. Negative: Nasal Discharge Cardiovascular: Negative Negative: Palpitations, Chest Pain Respiratory: Negative Negative: Shortness Of Breath, Cough Positive: Abdominal Pain - Diffuse abdominal pain, 9/10, Vomiting, Diarrhea, Nausea Positive: dysuria, hematuria Musculoskeletal: Negative Negative: Rash Negative: Headache All Other Systems Reviewed And Are Negative: Yes Physical Exam Triage Information Reviewed: Yes Vital Signs On Initial Exam: Initial Vitals Temp Pulse Resp BP Pulse Ox 99.3 F 59 16 147/81 98 07/27/18 09:26 07/27/18 09:26 07/27/18 09:26 07/27/18 09:26 07/27/18 09:26 Vital Signs Reviewed: Yes Appearance: Positive: Well-Appearing, No Pain Distress, Well-Nourished, Obese Skin: Positive: Warm, Skin Color Reflects Adequate Perfusion, Dry Head/Face: Positive: Normal Head/Face Inspection Eyes: Positive: Normal, EOMI ENT: Positive: Normal ENT inspection, Hearing grossly normal, Pharynx normal Neck: Positive: Supple, Nontender Respiratory/Lung Sounds: Positive: Clear to Auscultation, Breath Sounds Present Cardiovascular: Positive: Normal, RRR, Pulses are Symmetrical in both Upper and Lower Extremities Abdomen Description: Positive: Soft, CVA Tenderness (R) - mild, Other: - Diffuse abdominal tenderness, worse in the epigastrum. Negative: Guarding Bowel Sounds: Positive: Present Musculoskeletal: Positive: Normal, Strength/ROM Intact Neurological: Positive: Normal, Sensory/Motor Intact, Alert, Oriented to Person Place, Time Diagnostics - Vital Signs Vital Signs Temp Pulse Resp BP Pulse Ox 07/27/18 09:55 131/72 07/27/18 09:26 99.3 F 59 16 147/81 98 - Laboratory Result Diagrams: 07/27/18 10:51 07/27/18 10:51 Lab Statement: Any lab studies that have been ordered have been reviewed, and results considered in the medical decision making process. Naus/Vom/Diarrhea Course/Dx - Course Course Of Treatment: Pt presents with four days of emesis and two days of seeing blood in her vomit. She reports diffuse abdominal pain and diarrhea. She denies any blood in her stool, fever, and dizziness. Pt states she has a history of duodenal ulcer x2 and H. pylori. She does not have a GI doctor at this time. Her exam reveals diffuse abdominal tenderness with worse pain in the epigastrum. Rectal exam was negative for occult blood. Aspiration of stomach contents via nasogastric tube reveals blood and small clots. CBC, CMP, PT/INR, and lithium levels were drawn today and non-contributory. U/A revals 2+ bacteria and nitrates. Patient also had evidence of UTI and was treated with Cipro given her cephalosporin allergy. I saw the patient in conjunction with the physician apartment assistant manager student. All history, physical and medical decision making represents my work. - Differential Dx/Diagnosis Differential Diagnoses - Female: Other - Upper GI bleed, gastritis, peptic ulcer disease, Natividad-Neal disease, Boerhaave syndrome, lower GI bleed, medication side effect Provider Diagnosis: Upper GI hemorrhage, Schizoaffective disorder, depressive type, Urinary tract infection - Physician Notification/Consults Discussed Case/Management/Disposition Of Patient With: Xavier Rosa - will see in Hosp; Admitted to Dr Naina eWiner Hospitalist Discharge - Sign-Out/Discharge Documenting (check all that apply): Patient Departure - Discharge Plan Condition: Fair Disposition: ADMITTED TO [facility] - Billing Disposition and Condition Condition: FAIR Disposition: Admitted to [facility] - Attestation Statements Document Initiated by Dawit: No
[2018-07-27 11:07] LABS: ABS Basophils 0 10^3/ul (0-0.2); ABS Eosinophils 0.1 10^3/ul (0-0.6); ABS Lymphocytes 1.4 10^3/ul (1.0-4.8); ABS Monocytes 0.5 10^3/ul (0-0.8); ABS Neutrophils 4.2 10^3/ul (1.5-7.7); ABS Nucleated RBC 0 10^3/ul; Eosinophil % 1.8 %; Hematocrit 40 % (33-41); Hemoglobin 13.4 g/dL (12.0-16.0); Lymphocyte % 22.4 %; Mean Corpuscular HGB Conc 34 g/dL (31-36); Mean Corpuscular Hemoglobin 30 pg (27-31); Mean Corpuscular Volume 89 fL (80-97); Mean Platelet Volume 7.6 fL (7.4-10.4); Nucleated Red Blood Cells % 0; Platelet Count 210 10^3/uL (150-450); Red Blood Count 4.46 10^6 /uL (3.70-4.87); Red Cell Distribution Width 14 % (10.5-15); White Blood Count 6.2 10^3/uL (3.5-10.8)
[2018-07-27 11:20] LABS: Activated Partial Thrombo Time 28.8 seconds (26.0-36.3); INR 1.08 (0.82-1.09)
[2018-07-27 11:24] LABS: ALT 19 U/L (7-52); AST 16 U/L (13-39); Albumin 4.1 g/dL (3.2-5.2); Albumin/Globulin Ratio 1.6 (1-3); Alkaline Phosphatase 85 U/L (34-104); Anion Gap 8 mmol/L (2-11); BUN/Creatinine Ratio 14.3 (8-20); Blood Urea Nitrogen 14 mg/dL (6-24); CO2 Carbon Dioxide 23 mmol/L (22-32); Calcium 9.2 mg/dL (8.6-10.3); Chloride 108 mmol/L (101-111); EGFR African American 71.3 (>60); EGFR Non-African American 58.9 (>60); Globulin 2.5 g/dL (2-4); Glucose 131 mg/dL (70-100); Potassium 3.7 mmol/L (3.5-5.0); Sodium 139 mmol/L (135-145); Total Protein 6.6 g/dL (6.4-8.9)
[2018-07-27] MEDS ORDERED: Lidocaine 2% JELLY *30 ML TOPICAL ONE (11:30)
[2018-07-27 12:08] LABS: Urine Appearance Cloudy; Urine Bacteria 2+ (Absent); Urine Bilirubin Negative (Negative); Urine Blood Negative (Negative); Urine Color Yellow; Urine Glucose Negative (Negative); Urine Ketones Trace (Negative); Urine Nitrite Positive (Negative); Urine Protein Negative (Negative); Urine Red Blood Cell Trace(0-2/hpf) (Absent); Urine Specific Gravity 1.008 (1.010-1.030); Urine Squamous Epithelial Cell Present (Absent); Urine Urobilinogen Negative (Negative); Urine White Blood Cell Trace(0-5/hpf) (Absent)
[2018-07-27] MEDS ORDERED: Pantoprazole* 80 mg IN NS 80 MG/250 ML BAG IVPB ONE (12:19)
[2018-07-27] MEDS ORDERED: Ciprofloxacin 400MG IVPREMIX(* 400 MG/200 ML BAG IVPB ONE (12:20)
[2018-07-27 12:28] LABS: Lithium < 0.10 mmol/L (0.6-1.2)
[2018-07-27] MEDS ORDERED: Ondansetron INJ* 2 MG/ML VIAL IV PRN (13:31)
[2018-07-27] MEDS ORDERED: ALBUTEROL MDI INH PRN (13:35)
[2018-07-27] MEDS ORDERED: diPHENhydraMINE PO* 25 MG PO PRN (13:35)
[2018-07-27] MEDS ORDERED: Cyclobenzaprine TAB* 10 MG PO PRN (13:35)
[2018-07-27] MEDS ORDERED: Dextrose 50% Syringe 50 ML* 25 GM/50 ML SYRINGE IV PUSH PRN (13:39)
[2018-07-27 13:58] LABS: Amylase 39 U/L (29-103)
[2018-07-27 14:15] LABS: TSH (Thyroid Stimulating Horm) 2.78 mcIU/mL (0.34-5.60)
--- NOTE | 2018-07-27 14:45 | HP ---
HISTORY AND PHYSICAL: ADDENDUM: ASSESSMENT AND PLAN: Urinary tract infection. Given the patient's dysuria and findings of nitrites and bacteria in her urine, she was started on Cipro here in the emergency department. I suspect she was started on Cipro given her n.p.o. status and her allergies to CEPHALOSPORINS, AMOXICILLIN, and TETRACYCLINE. I will continue Cipro until the patient can take medications by mouth and then I will switch to a more appropriate p.o. medication. We will also await urine cultures and sensitivities. ELI BARAJAS, POWER ELECTRONICS ENGINEER [id number]/[facility] #: [id number] DAVION
--- NOTE | 2018-07-27 15:19 | HP ---
ADDENDUM NOW INCLUDED ON THIS REPORT CC: Dr. Bianchi; Dr. Smiley * HISTORY AND PHYSICAL: DATE OF ADMISSION: 07/27/18 PRIMARY CARE PROVIDER: Dr. Bianchi. ATTENDING PHYSICIAN: Dr. Latoya Weiner * (dictated by Eli Barajas, LONG) CHIEF COMPLAINT: 1. Nausea and vomiting. 2. Hematemesis. 3. Diarrhea. HISTORY OF PRESENT ILLNESS: Mrs. Urban is a 53-year-old female with a past medical history significant for type 2 diabetes, obesity, schizoaffective disorder, pancreatitis, asthma, developmentally delayed, multiple duodenal ulcers, who presented to the emergency department today with complaints of vomiting and diarrhea x4 days and hematemesis x2 days. She reports she has also been experiencing abdominal pain. Patient denies fever, anorexia, chest pain, edema, cough, shortness of breath, congestion, rashes. Patient does report dysuria. Patient denies any recent antibiotic use. Patient denies any recent skin contacts. Patient denies any travel. It should be mentioned that patient was discharged on 07/16/18 from our facility with concern of TIA and was placed on Plavix for 30 days. She reports that she has not been taking this since she was discharged from [facility] a few days ago. While in the emergency department, an NG tube was placed as a diagnostic tool and did drain bright red blood. In addition, patient had a urinalysis which was positive for nitrites and bacteria. Given patient's clinical findings and reported symptoms, hospitalists were asked to consult for admission. PAST MEDICAL HISTORY: 1. Type 2 diabetes. 2. Obesity. 3. Schizoaffective disorder. 4. Pancreatitis. 5. Asthma. 6. Intellectual disability. 7. History of right upper extremity DVT. 8. History of duodenal ulcers. PAST SURGICAL HISTORY: Tubal ligation. ALLERGIES: ASPIRIN, CEPHALOSPORIN, orange, AMOXICILLIN, TETRACYCLINE. FAMILY HISTORY: Patient has multiple family members with diabetes. She denies family history of gastric or GI related illnesses. SOCIAL HISTORY: Patient denies tobacco, alcohol or drug use. Patient lives with her roommate. Patient's surrogate decision maker is her son, Michael Townsend, who can be reached at [phone]. REVIEW OF SYSTEMS: A 14-point review of systems was performed and all pertinent negative and positive findings are in the HPI. PHYSICAL EXAMINATION GENERAL: Mrs. Urban is a well-developed, slightly obese, middle-aged woman, sitting on the ED stretcher. She appears in no acute distress. She appears stated age. VITAL SIGNS: Temp 99.3, HR 59, RR 16, O2 saturation 98% on room air, BP 147/81. HEENT: EOMs intact. PERRLA. Oral mucosa is moist without lesions. Posterior pharynx is clear. The patient has NG tube in right naris that is draining yellowish drainage with scant trace blood. NECK: No lymphadenopathy. Supple. RESPIRATORY: Symmetrical chest expansion. No accessory muscle use. Lungs are clear to auscultation. No rhonchi, wheezes, or rales. CV: Regular rate and rhythm. S1, S2 present. No murmurs, rubs, or gallops. EXTREMITIES: Skin is warm and smooth bilaterally. No edema. No clubbing or cyanosis. Pedal pulses are 2+ bilaterally. MUSCULOSKELETAL: Full range of motion. No pain or deformities. ABDOMEN: Soft, nondistended. It is tender to palpation throughout. Bowel sounds are normoactive. NEURO: Awake, alert, and oriented x4. Motor strength is 5/5 in the upper and lower extremities. Steady gait with no impairment. SKIN: Grossly intact without lesions. DIAGNOSTIC STUDIES/LABORATORY DATA: WBC is 6.2, hemoglobin is 13.4, hematocrit is 40, platelets 220. INR is 1.08 and aPTT is 28.8. Sodium is 139, potassium is 3.7, chloride 108, carbon dioxide 23, anion gap 8, BUN 14, creatinine 0.98, glucose 131, AST 16, ALT 19, alk phos is 85. Urine is positive for ketones, nitrites, squamous epithelial, bacteria. Rye level is less than 0.10. ASSESSMENT AND PLAN: Mrs. Urban is a 53-year-old female with a past medical history significant for diabetes, obesity, schizoaffective disorder, pancreatitis, asthma, developmental delay, right upper extremity deep vein thrombosis, duodenal ulcer; who presented to the emergency department today with complaints of nausea, vomiting, hematemesis, and was found to possibly have an upper gastrointestinal bleed. The patient will be admitted OBV. 1. Hematemesis: As mentioned in the HPI, the patient did have an NG tube placed, which did reveal bright red blood. The patient was started on Protonix drip after receiving a Protonix bolus. Patient had a stool guaiac, which was negative. The differential includes Natividad-Neal tear or ulcer given patient' s history. It should also be noted that patient was recently on Plavix. I will hold this while patient has active bleeding. GI has been consulted by the ER physician. We will leave the NG tube in place until the GI has evaluated the patient. I suspect we will be able to remove it this evening and possibly resume a clear diet, but currently, patient will be n.p.o. with the NG tube. 2. Nausea and vomiting: I suspect patient's nausea and vomiting could be secondary to viral illness, which might have led to her Natividad-Neal tear or could be related to an ulcer. We will leave the NG tube in place until she is evaluated by GI. We will also order Zofran p.r.n. Once the patient can resume by mouth medications and food, I would start on a clear liquid diet and slowly advance. 3. Diarrhea: Patient reports she has had about 4 days of diarrhea that is yellowish in color. No blood. She has not had any recent antibiotics or travel. I have ordered stool cultures. 4. Type 2 diabetes: Patient is on Lantus and metformin at home. I will hold the patient's metformin while she is here in the hospital. I will continue her Lantus at a lower dose given her NPO status and nausea and vomiting. I will also provide a sliding scale of lispro. 5. Schizoaffective disorder: Patient is on multiple medications for her mental illness. I will be cautious of holding these for long periods of time given her lithium level is already below normal, which I suspect is due to not taking anything by mouth for the past 4 days. I have reordered these medications with the hope that we will be able to advance her diet this evening. If not, I will resume it as soon as possible. 6. Pancreatitis: Patient has some generalized tenderness, but no tenderness localized to her left upper quadrant. I will hold off on belly imaging as she has no localized tenderness and she is passing gas and stool. I have ordered amylase and lipase to be added on to the patient's ED labs given her history. 7. Asthma: We will continue patient's inhalers as she has at home. 8. Developmental disability: We will provide supportive care. I would also recommend a social work consult to make sure patient has help she needs at home and also that she is compliant with her medications. 9. History of right upper extremity deep venous thrombosis: Patient has a history of right upper extremity deep venous thrombosis, but no signs or symptoms of that at this time. Patient is not anticoagulated. 10. Hypothyroidism: I have ordered TSH to be added to the patient's ED labs. 11. History of duodenal ulcers. As mentioned above, this is on a differential. Therefore, the GI group has been contacted regarding this patient. I will continue patient's Protonix drip. 12. Transient ischemic attack: It should be mentioned that patient was recently admitted and discharged from our facility on 07/16/18. There was some concern of TIA, although she did have a functional neurological exam. She was discharged with Plavix 75 mg p.o. daily for 30 days. Patient reports that while she was at [facility], she was taking this, but after discharge, she was not. Prior to discharge, I would recommend reviewing the risks and benefits and possibly talking to Neurology regarding restarting this medication. I suspect if there was concern of TIA, we will restart this medication if she has no active bleeding to reduce her risks of stroke. Plavix was started on 07/09/18 and was scheduled to continue for 30 days. 13. FEN: As mentioned above, patient will be placed n.p.o. while she has NG tube. Once the NG tube is removed, hopefully after the GI has evaluated the patient, we can advance her diet to clears. In the meantime, I have also ordered normal saline for fluid supplementation. 14. Code status: Patient is a full code. 15. DVT prophylaxis. Based on the risk assessment, the patient is at moderate risk. Given the patient's possible GI bleed, I will order SCDs and frequent ambulation. 16. Urinary tract infection. Given the patient's dysuria and findings of nitrites and bacteria in her urine, she was started on Cipro here in the emergency department. I suspect she was started on Cipro given her n.p.o. status and her allergies to CEPHALOSPORINS, AMOXICILLIN, and TETRACYCLINE. I will continue Cipro until the patient can take medications by mouth and then I will switch to a more appropriate p.o. medication. We will also await urine cultures and sensitivities. TIME SPENT: Approximately 65 minutes was spent on this admission, greater than half the time was spent with the patient, obtaining my history and performing my physical exam and reviewing my plan of care. This case has been reviewed with my attending, Dr. Weiner, who is in agreement with my plan of care. Reviewed by ELI BARAJAS NP 08/02/18 @ 1931 [id number]/[facility] #: [id number]/[facility] #: [id number] DAVION
[2018-07-27] MEDS: NS 0.9% 1000 ML** 1,000 ML IV SCH (15:20)
[2018-07-27] MEDS: Insulin LISPRO* 1 UNITS UNIT SUBCUT SCH (17:40)
[2018-07-27] MEDS: Lurasidone(*) 80 MG TAB PO SCH (17:40)
[2018-07-27] MEDS: Mometasone/Formoter 200/5 MDI INH SCH (19:11)
[2018-07-27] MEDS: Lithium Carbonate TAB* 300 MG PO SCH (19:31)
[2018-07-27] MEDS: CloZAPine TAB* 100 MG TAB PO SCH (19:31)
[2018-07-27] MEDS: Topiramate TAB(*) 100 MG PO SCH (19:32)
[2018-07-27] MEDS: Temazepam CAP* 15 MG PO SCH (19:32)
--- NOTE | 2018-07-27 21:44 | CONS ---
GASTROENTEROLOGY CONSULT: DATE: 07/27/18 CONSULTING PHYSICIAN: Maikel Eckert MD, emergency room. HISTORY: This 53-year-old woman with schizoaffective disorder and [facility] and Dr. Bianchi, takes pantoprazole 40 mg daily regularly as an outpatient. She also appears to be taking clopidogrel 75 mg since an admission 3 weeks ago . The indication for that is not clear based on data available so far in the emergency room as all her neuroimaging during that admission reads "no acute intracranial abnormality" At her residence, she has reported upper abdominal pain and vomiting for 4 days. She states there had been blood clots in it. She is a very poor historian for general perspective though will state very precise individual facts about decades ago events. There is no one with her to corroborate that information. She is on 15 different medicines and that was a focus of the neurologists during her recent hospital stay. These include multiple psychoactive medications. This was a focus during a July 2017 admission as well as June 2018 She does give clear history that at age 15 or 16 she was told she had an ulcer though she does not recall an endoscopy. That was at a hospital in [place]. At age 28, she states ARJUN Greene in [place], told her that she had H. pylori and was treated for that. Our record at [facility] begins in 2004 and does not show any gastrointestinal investigations other than a colonoscopy by Dr. Morfin September 2015, which was normal. At the time, she was complaining of abdominal pain in the right upper quadrant and a CT was reading an abnormality in the ascending colon. Multiple entries mostly from the psych service uniformly list Prilosec or omeprazole as a chronic med. At this time, after admission, her vital signs are normal. She was resting comfortably in bed. PAST MEDICAL HISTORY: 1. Schizoaffective disorder. 2. Morbid obesity. 3. History of GERD. 4. Adult onset diabetes, on insulin Lantus 20 units daily. 5. History of anticoagulant use - Plavix, indication unclear. MEDICATIONS: The reconciliation form reviewed - 24 meds in June 2018 - unclear if any were stopped SOCIAL HISTORY: She was alone. She resides in a residential facility. A son Alex born 1986 has contact info in Dr Mackenzie's June H+P REVIEW OF SYSTEMS: No history of TIA seizure, CVA, [place], syncope, cardiac arrhythmias, hepatitis, rectal bleeding, chronic dermatologic disease. PHYSICAL EXAM: She was in bed, sleeping at 7:30, and is in no acute distress. She spoke with her eyes closed. Vitals are normal. She is afebrile. She states she hurts in the epigastrium. HEENT exam is otherwise unremarkable. She is anicteric. She has no adenopathy. Her lungs are clear. Heart sounds are regular. The abdomen is obese and exam is somewhat limited, but there is no guarding or overt tenderness. Bowel sounds are regular. Rectal deferred. In the ER, stool was negative for occult blood. LABS: Hemoglobin 13.4, hematocrit 40, MCV 89. White count 6.2. LFTs normal. Lipase 29. A1c 3 weeks ago 6.4, creatinine 0.98, BUN 14. Urinalysis: Specific gravity 1.008. Tox screen: [place] under the cutoff. IMPRESSION: This 53-year-old woman with a history for over 15 yrs clinically defined as GERD (on a PPI based on chart records in 2004 and 2009), self- reported some episodes of hematemesis. With regular PPIs ulcers are unlikely and likewise severe erosive GERD . Caustic esophagitis or a Natividad Neal are possible. Direct history from caregivers at her facility or from primary office would be useful. There is no sign of major GI bleeding. Upper endoscopy may be helpful in decision making. Reducing meds appears appropriate. [id number]/[facility] #: [id number] MTDD
[2018-07-28] MEDS: Insulin LISPRO* 1 UNITS UNIT SUBCUT SCH ×5 (00:12→23:55)
[2018-07-28] MEDS: NS 0.9% 1000 ML** 1,000 ML IV SCH ×2 (01:14→09:49)
[2018-07-28] MEDS ORDERED: Ciprofloxacin 400MG IVPREMIX(* 400 MG/200 ML BAG IVPB SCH (01:30)
[2018-07-28] MEDS: Pantoprazole* 80 mg IN NS 80 MG/250 ML BAG IVPB SCH ×2 (02:27→17:15)
[2018-07-28] MEDS: Levothyroxine TAB* 88 MCG TAB PO SCH (05:26)
[2018-07-28 06:27] LABS: ABS Basophils 0 10^3/ul (0-0.2); ABS Eosinophils 0.1 10^3/ul (0-0.6); ABS Lymphocytes 1.1 10^3/ul (1.0-4.8); ABS Monocytes 0.4 10^3/ul (0-0.8); ABS Neutrophils 2.1 10^3/ul (1.5-7.7); ABS Nucleated RBC 0 10^3/ul; Eosinophil % 3.1 %; Hematocrit 40 % (33-41); Hemoglobin 13.3 g/dL (12.0-16.0); Lymphocyte % 30.1 %; Mean Corpuscular HGB Conc 34 g/dL (31-36); Mean Corpuscular Hemoglobin 30 pg (27-31); Mean Corpuscular Volume 90 fL (80-97); Mean Platelet Volume 7.8 fL (7.4-10.4); Nucleated Red Blood Cells % 0.3; Platelet Count 166 10^3/uL (150-450); Red Cell Distribution Width 15 % (10.5-15); White Blood Count 3.7 10^3/uL (3.5-10.8)
[2018-07-28 06:31] LABS: Calcium 8.9 mg/dL (8.6-10.3); Potassium 3.5 mmol/L (3.5-5.0)
[2018-07-28 06:37] LABS: EGFR African American 69.7 (>60); EGFR Non-African American 57.6 (>60)
[2018-07-28] MEDS: Mometasone/Formoter 200/5 MDI INH SCH ×2 (07:30→19:12)
[2018-07-28] MEDS: Nystatin TOP POWDER* 15 GM BTL TOPICAL SCH ×3 (09:46→22:10)
[2018-07-28] MEDS: Topiramate TAB(*) 100 MG PO SCH ×2 (09:46→22:10)
[2018-07-28] MEDS: FLUoxetine CAP* 20 MG PO SCH (09:46)
[2018-07-28] MEDS: Atorvastatin* 10 MG TAB PO SCH (09:46)
[2018-07-28] MEDS: Insulin GLARGINE(*) 1 UNITS UNIT SUBCUT SCH (09:47)
--- NOTE | 2018-07-28 12:29 | PN ---
Subjective Date of Service: 07/28/18 Interval History: Patient states that she has not had a BM since yesterday, which is improvement of her diarrhea. She reports that she has not vomited today. Her nausea and abdominal pain are unchanged. She additionally notes dysuria. She notes a left sided chest pain, which she states has been present since yesterday but it does not appear that she had complained of this yesterday. She denies diaphoresis, headache, fever/chills. Objective Active Medications: Albuterol (Proair Respiclick) 2 puff INH Q4HR PRN PRN Reason: SHORTNESS OF BREATH Atorvastatin Calcium (Lipitor*) 10 mg PO DAILY [facility]; Protocol Last Admin: 07/28/18 09:46 Dose: 10 mg Clozapine (Clozapine Tab*) 300 mg PO BEDTIME [facility] Last Admin: 07/27/18 19:31 Dose: 300 mg Cyclobenzaprine HCl (Flexeril Tab*) 10 mg PO TID PRN PRN Reason: PAIN Last Admin: 07/27/18 19:45 Dose: 10 mg Dextrose (D50w Syringe 50 Ml*) 12.5 gm IV PUSH .FOR FS < 60 - SS PRN PRN Reason: FS < 60 Diphenhydramine HCl (Benadryl Po*) 25 mg PO TID PRN PRN Reason: Allergy Symptoms Fluoxetine HCl (Prozac Cap*) 40 mg PO QAM [facility] Last Admin: 07/28/18 09:46 Dose: 40 mg Sodium Chloride (Ns 0.9% 1000 Ml) 1,000 mls @ 125 mls/hr IV PER RATE [facility] Last Admin: 07/28/18 09:49 Dose: 125 mls/hr Ciprofloxacin/Dextrose (Cipro 400 Mg Ivpremix(*)) 400 mg in 200 mls @ 200 mls/ hr IVPB Q12H [facility] Last Admin: 07/28/18 01:20 Dose: 200 mls/hr Pantoprazole Sodium (Protonix Iv Bag*) 80 mg in 250 mls @ 25 mls/hr IVPB Q10H [facility] Last Admin: 07/28/18 02:27 Dose: 25 mls/hr Insulin Glargine (Lantus(*)) 10 units SUBCUT DAILY [facility] Last Admin: 07/28/18 09:47 Dose: 10 unit Insulin Human Lispro (Humalog*) 0 units SUBCUT Q6HR [facility]; Protocol Last Admin: 07/28/18 11:59 Dose: Not Given Levothyroxine Sodium (Synthroid Tab*) 88 mcg PO DAILY@0600 [facility] Last Admin: 07/28/18 05:26 Dose: 88 mcg [place] Carbonate ([place] Carbonate Tab*) 900 mg PO BEDTIME [facility] Last Admin: 07/27/18 19:31 Dose: 900 mg Lurasidone HCl (Latuda) 80 mg PO QPM [facility] Last Admin: 07/27/18 17:40 Dose: 80 mg Mometasone Furoate/Formoterol Fumar (Dulera 200/5 Mdi*) 2 puff INH BID [facility]; Protocol Last Admin: 07/28/18 07:30 Dose: 2 puff Nystatin (Nystatin Top Powder*) 1 applic TOPICAL TID [facility] Last Admin: 07/28/18 09:46 Dose: 1 applic Ondansetron HCl (Zofran Inj*) 4 mg IV Q4H PRN PRN Reason: NAUSEA/VOMITING Temazepam (Restoril Cap*) 15 mg PO BEDTIME [facility] Last Admin: 07/27/18 19:32 Dose: 15 mg Topiramate (Topamax(*)) 100 mg PO BID [facility] Last Admin: 07/28/18 09:46 Dose: 100 mg Vital Signs - 8 hr 07/28/18 07/28/18 07/28/18 07:27 07:31 07:45 Temperature 97.5 F Pulse Rate 82 76 Respiratory 16 14 Rate Blood Pressure 129/74 (mmHg) O2 Sat by Pulse 98 100 Oximetry 07/28/18 10:52 Temperature 98.3 F Pulse Rate 69 Respiratory 20 Rate Blood Pressure 127/77 (mmHg) O2 Sat by Pulse 99 Oximetry Oxygen Devices in Use Now: None Appearance: White, obese female, appears older than stated age, laying in hospital bed, appearing in NAD Eyes: No Scleral Icterus, PERRLA Ears/Nose/Mouth/Throat: Mucous Membranes Moist, - - Edentulous Neck: NL Appearance and Movements; NL JVP Respiratory: Symmetrical Chest Expansion and Respiratory Effort, Clear to Auscultation Cardiovascular: NL Sounds; No Murmurs; No JVD, RRR Abdominal: - - Abdomen tender to palpation in LUQ and at umbilicus; ecchymosis to LLQ ~5 cm from umbilicus Extremities: No Edema, No Clubbing, Cyanosis Skin: No Rash or Ulcers Neurological: Alert and Oriented x 3, NL Muscle Strength and Tone Result Diagrams: 07/28/18 05:59 07/28/18 05:59 Microbiology and Other Data: Microbiology 07/27/18 10:30 Stool Occult Blood (ROMAN) - Final Stool Assess/Plan/Problems-Billing Assessment: 53 yo female with PMHx significant for DMT2, hx of DVT, hx of TIA, hx of pancreatitis, hx of duodenal ulcer presents with hematemesis in the setting of 4 days of abd pain, nausea, vomiting, and diarrhea after leaving AMA from [facility]. Patient is admitted for evaluation of possible upper GI bleed. - Patient Problems (1) Upper GI bleed Code(s): K92.2 - GASTROINTESTINAL HEMORRHAGE, UNSPECIFIED SNOMED Code(s): 48354392 Comment: -no hematemesis today, nausea continues -GI consulted yesterday, EGD scheduled for today; appreciate recommendations -NG removed; NG did output bright red blood in the ED yesterday -possibly related to ulcer given hx of duodenal ulcer, possibly related to Natividad-Neal tear in setting of frequent vomiting -continue IV zofran and IV pantoprazole -currently NPO for EGD today, but to continue clear liquid diet afterwards, will advance as tolerated (2) Left-sided chest wall pain Code(s): R07.89 - OTHER CHEST PAIN SNOMED Code(s): 727753499 Comment: -patient states she is having left sided chest pain since yesterday which is unimproved; it doesn't appear she complained of this yesterday in documentation -ordered stat EKG and troponin to r/o ACS -likely musculoskeletal related to vomiting, atul considering the pain is reproducible to palpation (3) Abdominal pain Code(s): R10.9 - UNSPECIFIED ABDOMINAL PAIN SNOMED Code(s): 18036594 Comment: -abdominal pain is not improved today; possible margot sign with ecchymosis to abdomen near umbilicus -possibly related to ulcer as patient has hx of duodenal ulcers -possibly pancreatitis as hx of pancreatitis, but lipase and amylase negative at admission; will order CT abdomen if EGD does not demonstrate ulcers -possibly related to viral gastroenteritis as patient was experiencing nausea, vomiting, and diarrhea; diarrhea resolved today thus far -stool culture negative (4) Urinary tract infection Comment: -possibly a contaminated urine sample, however patient is symptomatic so will continue to treat -urine culture demonstrates E. coli; no sensitivities yet however in the past patient has had E. coli UTI with resistance to cipro in the past -patient has been receiving ciprofloxacin for which patient has hx of resistance ; switching to nitrofurantoin 100 mg q6h po to start after EGD (5) Schizoaffective disorder, depressive type Code(s): F25.1 - SCHIZOAFFECTIVE DISORDER, DEPRESSIVE TYPE SNOMED Code(s): 35017764 Comment: -Continue home clozapine, lithium, topamax, prozac, temazepam , latuda -lithium levels subtherapeutic on admission, likely due to poor oral intake in setting of n/v, pt to receive oral meds when tolerated after EGD (6) Dysphagia Code(s): R13.10 - DYSPHAGIA, UNSPECIFIED SNOMED Code(s): 61084884 Comment: -patient reports she has had difficulty swallowing thin liquids and has been coughing after drinking liquids at home -[employer] consult ordered, patient has been NPO for EGD therefore swallow eval has not been possible -her clear liquid diet has been modified with nectar thick; though NPO thus far today as previously mentioned (7) Hx-TIA (transient ischemic attack) Code(s): Z86.73 - PRSNL HX OF TIA (TIA), AND CEREB INFRC W/O RESID DEFICITS SNOMED Code(s): 725178518 Comment: -patient discharged on 07/16/18 for possible TIA, discharged with plavix to be continued until 08/08/18 -patient has not been taking plavix for the last 4 days due to nausesa/vomiting -will hold in setting of UGI bleed currently (8) Type 2 diabetes mellitus Comment: -Continue Glargine, Lispro ss -Metformin on hold (9) Asthma Code(s): J45.909 - UNSPECIFIED ASTHMA, UNCOMPLICATED SNOMED Code(s): 558661958 Comment: -continue home albuterol, dulera (10) Hypothyroidism Code(s): E03.9 - HYPOTHYROIDISM, UNSPECIFIED SNOMED Code(s): 59780590 Comment: -continue synthroid (11) DVT prophylaxis Code(s): GEG2191 - SNOMED Code(s): 764340184 Comment: -no chemical prophylaxis in setting of GI bleed -continue SCDs (12) DNR (do not resuscitate) Comment: -Patient is DNR, signed MOLST -Intubation ok
[2018-07-28] MEDS ORDERED: fentaNYL* 50 MCG/ML 2 ML VIAL (100 MCG VIAL) ONE (16:01)
[2018-07-28] MEDS ORDERED: Midazolam* 1 MG/ML 10 ML VIAL (10 MG) ONE (16:01)
[2018-07-28] MEDS: Nitrofurantoin Macrocrystals* 100 MG CAP PO SCH ×3 (16:39→22:09)
[2018-07-28] MEDS: Lurasidone(*) 80 MG TAB PO SCH (17:15)
[2018-07-28] MEDS ORDERED: Iodixanol* (CONTRAST) 320 MG/ML 100 ML SDV IV ONE (17:49)
[2018-07-28] MEDS: CloZAPine TAB* 100 MG TAB PO SCH (22:10)
[2018-07-28] MEDS: Lithium Carbonate TAB* 300 MG PO SCH (22:10)
[2018-07-28] MEDS: Temazepam CAP* 15 MG PO SCH (22:10)
--- NOTE | 2018-07-28 23:43 | PRO ---
CC: Jason Bianchi MD; Dr. Latoya Weiner.* DATE OF PROCEDURE: 07/28/18 - ROOM #410 PROCEDURE: EGD with biopsy. PRIMARY CARE PHYSICIAN: Jason Bianchi MD. HOSPITAL PHYSICIAN: Dr. Latoya Weiner. INDICATIONS: The patient presented with possible hematemesis and nausea/ vomiting. History of H. pylori remotely status-post treatment. Symptoms seemed to have improved, although she reports some continued nausea and vomiting last night. MEDICATIONS GIVEN: Midazolam 10 mg IV, Fentanyl 100 mcg IV. DESCRIPTION OF PROCEDURE: Full disclosure of risks was reviewed with the patient as detailed on the consent form. The patient was placed in the left lateral decubitus position and monitored with continuous pulse oximetry, capnography, interval blood pressure monitoring, and direct observation. A bite block was placed between the patient's teeth. An adult gastroscope was then inserted into the patient's mouth and advanced down the esophagus, into the stomach, and into the distal duodenum. Findings and interventions are described below. FINDINGS: Esophagus demonstrated possible mild linear furrowing. No rings or strictures. There was an irregular GE junction occurring between 36 and 37 cm. Biopsies obtained. Biopsies also obtained from the mid and distal esophagus to rule out eosinophilic esophagitis. Scope was then advanced into the stomach. The stomach was examined in the forward and retroflexed views. There was mild erythema in the gastric fundus. Stomach was otherwise unremarkable. No evidence of fresh or old blood. No erosions or ulcers. Biopsy obtained from the antrum and sent for PAPI test. Scope was then advanced into the duodenum to at least the third portion. The duodenal mucosa was normal in appearance. No fresh or old blood. No erosions or ulcers. Biopsies obtained. Scope was then withdrawn from the patient. The patient tolerated the procedure well and was recovered in the GI recovery area. IMPRESSION: 1. Complete upper endoscopy to the distal duodenum. 2. No evidence of recent bleeding or bleeding source. No explanation for the patient's GI symptoms. FOLLOW-UP: 1. Would consider a CT abdomen and pelvis for further evaluation. I discussed the above findings with the patient's inpatient team. [id number]/CPS #: [id number] [facility] [place] [facility]
[2018-07-29] MEDS: Nitrofurantoin Macrocrystals* 100 MG CAP PO SCH ×3 (02:04→14:29)
[2018-07-29] MEDS: NS 0.9% 1000 ML** 1,000 ML IV SCH (02:06)
[2018-07-29] MEDS: Pantoprazole* 80 mg IN NS 80 MG/250 ML BAG IVPB SCH ×2 (03:42→07:44)
[2018-07-29] MEDS: Levothyroxine TAB* 88 MCG TAB PO SCH (05:51)
[2018-07-29] MEDS: Insulin LISPRO* 1 UNITS UNIT SUBCUT SCH ×2 (05:54→11:58)
[2018-07-29 07:25] LABS: Albumin 3.7 g/dL (3.2-5.2); Albumin/Globulin Ratio 1.8 (1-3); BUN/Creatinine Ratio 5.6 (8-20); Calcium 8.8 mg/dL (8.6-10.3); EGFR African American 64.4 (>60); EGFR Non-African American 53.2 (>60); Globulin 2.1 g/dL (2-4); Potassium 3.4 mmol/L (3.5-5.0); Total Bilirubin 0.4 mg/dL (0.2-1.0); Total Protein 5.8 g/dL (6.4-8.9)
[2018-07-29] MEDS ORDERED: Albuterol HFA INHALER* 8 gm MDI INH PRN (08:00)
[2018-07-29 08:06] LABS: ABS Basophils 0 10^3/ul (0-0.2); ABS Eosinophils 0.2 10^3/ul (0-0.6); ABS Lymphocytes 1.2 10^3/ul (1.0-4.8); ABS Monocytes 0.4 10^3/ul (0-0.8); ABS Nucleated RBC 0 10^3/ul; Eosinophil % 3.8 %; Hematocrit 37 % (35-47); Hemoglobin 12.5 g/dL (12.0-16.0); Lymphocyte % 25.7 %; Mean Corpuscular HGB Conc 34 g/dL (31-36); Mean Corpuscular Hemoglobin 30 pg (27-31); Mean Corpuscular Volume 89 fL (80-97); Nucleated Red Blood Cells % 0.1; Platelet Count 198 10^3/uL (150-450); Red Blood Count 4.14 10^6 /uL (3.70-4.87); Red Cell Distribution Width 15 % (10.5-15); White Blood Count 4.8 10^3/uL (3.5-10.8)
[2018-07-29] MEDS: Mometasone/Formoter 200/5 MDI INH SCH (08:37)
--- NOTE | 2018-07-29 08:48 | PN ---
Subjective Date of Service: 07/29/18 Interval History: Patient is feeling improved this morning. She has not had a BM since 07/27 and therefore her diarrhea is resolved. She has not had nausea since yesterday. Her abdominal pain is improved, but still occurring in her central abdomen. Her left sided chest pain is resolved. She reports her dysuria is improved but still present. She denies n/v, dyspnea, low back pain, fever/chills, and hematuria. Objective Active Medications: Albuterol (Ventolin Hfa Inhaler*) 2 puff INH Q4HR PRN PRN Reason: SHORTNESS OF BREATH Atorvastatin Calcium (Lipitor*) 10 mg PO DAILY [facility]; Protocol Last Admin: 07/28/18 09:46 Dose: 10 mg Clozapine (Clozapine Tab*) 300 mg PO BEDTIME [facility] Last Admin: 07/28/18 22:10 Dose: 300 mg Cyclobenzaprine HCl (Flexeril Tab*) 10 mg PO TID PRN PRN Reason: PAIN Last Admin: 07/27/18 19:45 Dose: 10 mg Dextrose (D50w Syringe 50 Ml*) 12.5 gm IV PUSH .FOR FS < 60 - SS PRN PRN Reason: FS < 60 Diphenhydramine HCl (Benadryl Po*) 25 mg PO TID PRN PRN Reason: Allergy Symptoms Fluoxetine HCl (Prozac Cap*) 40 mg PO QAM [facility] Last Admin: 07/28/18 09:46 Dose: 40 mg Sodium Chloride (Ns 0.9% 1000 Ml) 1,000 mls @ 125 mls/hr IV PER RATE [facility] Last Admin: 07/29/18 02:06 Dose: 125 mls/hr Pantoprazole Sodium (Protonix Iv Bag*) 80 mg in 250 mls @ 25 mls/hr IVPB Q10H [facility] Last Admin: 07/29/18 07:44 Dose: 25 mls/hr Insulin Glargine (Lantus(*)) 10 units SUBCUT DAILY [facility] Last Admin: 07/28/18 09:47 Dose: 10 unit Insulin Human Lispro (Humalog*) 0 units SUBCUT Q6HR [facility]; Protocol Last Admin: 07/29/18 05:54 Dose: Not Given Levothyroxine Sodium (Synthroid Tab*) 88 mcg PO DAILY@0600 [facility] Last Admin: 07/29/18 05:51 Dose: 88 mcg [place] Carbonate ([place] Carbonate Tab*) 900 mg PO BEDTIME [facility] Last Admin: 07/28/18 22:10 Dose: 900 mg Lurasidone HCl (Latuda) 80 mg PO QPM [facility] Last Admin: 07/28/18 17:15 Dose: 80 mg Mometasone Furoate/Formoterol Fumar (Dulera 200/5 Mdi*) 2 puff INH BID [facility]; Protocol Last Admin: 07/29/18 08:37 Dose: 2 puff Nitrofurantoin Macrocrystals (Macrodantin*) 100 mg PO Q6H [facility] Last Admin: 07/29/18 02:04 Dose: 100 mg Nystatin (Nystatin Top Powder*) 1 applic TOPICAL TID [facility] Last Admin: 07/28/18 22:10 Dose: 1 applic Ondansetron HCl (Zofran Inj*) 4 mg IV Q4H PRN PRN Reason: NAUSEA/VOMITING Pneumococcal Polyvalent Vaccine (Pneumococcal Vac 23-Polyvalent*) 0.5 ml IM .ONCE ONE Stop: 07/29/18 09:01 Temazepam (Restoril Cap*) 15 mg PO BEDTIME [facility] Last Admin: 07/28/18 22:10 Dose: 15 mg Topiramate (Topamax(*)) 100 mg PO BID [facility] Last Admin: 07/28/18 22:10 Dose: 100 mg Vital Signs - 8 hr 07/29/18 07/29/18 07/29/18 02:16 07:32 07:46 Temperature 97.3 F 98.6 F Pulse Rate 91 78 Respiratory 16 17 14 Rate Blood Pressure 132/80 153/99 (mmHg) O2 Sat by Pulse 96 98 Oximetry 07/29/18 07/29/18 07:56 08:38 Temperature Pulse Rate 76 Respiratory 18 16 Rate Blood Pressure (mmHg) O2 Sat by Pulse 98 Oximetry Oxygen Devices in Use Now: None Appearance: Obese, white female laying comfortably in hospital bed, appearing in NAD Eyes: No Scleral Icterus, PERRLA Ears/Nose/Mouth/Throat: Mucous Membranes Moist, - - Edentulous Neck: NL Appearance and Movements; NL JVP Respiratory: Symmetrical Chest Expansion and Respiratory Effort, - - Minimally diminished lung sounds at bases, otherwise clear to auscultation Cardiovascular: NL Sounds; No Murmurs; No JVD, RRR Abdominal: - - Abdomen minimally tender to palpation above umbilicus, otherwise nontender; no distension, guarding, masses, or hepatomegaly; ecchymosis to ~3cm inferior to umbilicus is stable Extremities: No Edema, No Clubbing, Cyanosis, - - Neg calf tenderness Skin: - - Skin warm, dry, intact Neurological: Alert and Oriented x 3, NL Muscle Strength and Tone Result Diagrams: 07/29/18 06:43 07/29/18 06:43 Microbiology and Other Data: Microbiology 07/27/18 10:30 Stool Occult Blood (ROMAN) - Final Stool Assess/Plan/Problems-Billing Assessment: 53 yo female with PMHx significant for DMT2, hx of DVT, hx of TIA, hx of pancreatitis, hx of duodenal ulcer presents with hematemesis in the setting of 4 days of abd pain, nausea, vomiting, and diarrhea after leaving AMA from [facility]. Patient is admitted for evaluation of possible upper GI bleed. - Patient Problems (1) Upper GI bleed Code(s): K92.2 - GASTROINTESTINAL HEMORRHAGE, UNSPECIFIED SNOMED Code(s): 53570693 Comment: -hematemesis and nausea resolved -EGD yesterday normal, h. pylori negative; no evidence of cause of upper GI bleed -NG did output bright red blood in the ED at admission -po zofran prn, d/c IV pantoprazole -full liquid diet for breakfast this morning and will advance as tolerated (2) Left-sided chest wall pain Code(s): R07.89 - OTHER CHEST PAIN SNOMED Code(s): 897354407 Comment: -resolved today -EKG without T wave or ST changes; troponin negative yesterday -likely musculoskeletal related to vomiting, atul considering the pain was reproducible to palpation (3) Abdominal pain Code(s): R10.9 - UNSPECIFIED ABDOMINAL PAIN SNOMED Code(s): 15483527 Comment: -abdominal pain is improved today -normal EGD yesterday with negative H. pylori -CT abd/pelvis w IV contrast yesterday demonstrated 9mm splenic lesion and small bilateral pleural effusions with atelectasis; otherwise no abdominal pathology -stool culture negative -possibly related to viral gastroenteritis as patient was experiencing nausea, vomiting, and diarrhea at presentation, all of which have resolved (4) Urinary tract infection Comment: -urine culture demonstrates E. coli; no sensitivities yet however in the past patient has had E. coli UTI with resistance to cipro, bactrim, ampicillin; patient has allergy to cephalosporins -continue nitrofurantoin 100 mg q6h po (5) Dysphagia Code(s): R13.10 - DYSPHAGIA, UNSPECIFIED SNOMED Code(s): 13852480 Comment: -patient reports she has had difficulty swallowing thin liquids and has been coughing after drinking liquids at home -[employer] consult ordered, patient has been NPO for EGD therefore swallow eval has not been possible; appreciate recs today -her diet has been modified with nectar thick liquids while awaiting eval (6) Schizoaffective disorder, depressive type Code(s): F25.1 - SCHIZOAFFECTIVE DISORDER, DEPRESSIVE TYPE SNOMED Code(s): 45584967 Comment: -Continue home clozapine, lithium, topamax, prozac, temazepam , latuda -lithium levels subtherapeutic on admission, likely due to poor oral intake in setting of n/v; to recommended follow up of levels outpatient at discharge (7) Hx-TIA (transient ischemic attack) Code(s): Z86.73 - PRSNL HX OF TIA (TIA), AND CEREB INFRC W/O RESID DEFICITS SNOMED Code(s): 048588744 Comment: -patient discharged on 07/16/18 for possible TIA, discharged with plavix to be continued until 08/08/18 -patient had not been taking plavix for 4 days leading up to admission due to nausesa/vomiting -will hold in setting of UGI bleed at admission (8) Type 2 diabetes mellitus Comment: -Continue Glargine, Lispro ss -Metformin on hold -carb consistent diet (9) Asthma Code(s): J45.909 - UNSPECIFIED ASTHMA, UNCOMPLICATED SNOMED Code(s): 946531393 Comment: -continue home albuterol, dulera (10) Hypothyroidism Code(s): E03.9 - HYPOTHYROIDISM, UNSPECIFIED SNOMED Code(s): 19890121 Comment: -continue synthroid (11) DVT prophylaxis Code(s): FWE6293 - SNOMED Code(s): 072570958 Comment: -no chemical prophylaxis in setting of GI bleed -continue SCDs (12) DNR (do not resuscitate) Comment: -Patient is DNR, signed MOLST -Intubation ok Status and Disposition: Patient discharged to [facility] for subacute rehab on 07/16/18 after likely TIA and experiencing weakness. Patient left [facility] against medical advice 4-5 days prior to presentation for this admission. Awaiting PT evaluation for disposition to home vs [facility].
[2018-07-29] MEDS: FLUoxetine CAP* 20 MG PO SCH (08:56)
[2018-07-29] MEDS: Topiramate TAB(*) 100 MG PO SCH (08:57)
[2018-07-29] MEDS ORDERED: Ondansetron TAB* 4 MG PO PRN (08:57)
[2018-07-29] MEDS: Atorvastatin* 10 MG TAB PO SCH (08:57)
[2018-07-29] MEDS: Nystatin TOP POWDER* 15 GM BTL TOPICAL SCH ×2 (08:57→14:29)
[2018-07-29] MEDS: Insulin GLARGINE(*) 1 UNITS UNIT SUBCUT SCH (08:57)
[2018-07-29] MEDS ORDERED: Pneumococcal *Vac Polyvalent 0.5 ML VIAL IM ONE (09:00)
[2018-07-29 16:15] VITALS: BP 140/82
--- NOTE | 2018-07-30 05:57 | DS ---
AMENDED REPORT NOW INCLUDES DESIGNATED COSIGNER DISCHARGE SUMMARY: DATE OF ADMISSION: 07/27/18 DATE OF DISCHARGE: 07/29/18 PROVIDER: ARJUN Mina. ATTENDING PHYSICIAN: Dr. Thania Salazar * (dictated by ARJUN Mina). PRIMARY CARE PROVIDER: Dr. Bianchi. OUTPATIENT PSYCHIATRIST: Dr. Holcomb. PRIMARY DIAGNOSES: 1. Abdominal pain, likely viral gastroenteritis. 2. Hematemesis of unclear etiology, resolved. 3. Uncomplicated cystitis. 4. Dysphagia. SECONDARY DIAGNOSES: 1. Diabetes mellitus, type 2. 2. Obesity. 3. Schizoaffective disorder. 4. History of pancreatitis. 5. Asthma. 6. Intellectual disability. 7. History of right upper extremity deep venous thrombosis. 8. History of duodenal ulcers. PROCEDURES: Endoscopy on 07/28/[address] Evangelina Carroll. Impression: 1. Complete upper endoscopy to the distal duodenum. 2. No evidence of recent bleeding or bleeding source. 3. No explanation to the patient's abdominal pain and nausea, vomiting. 4. Consider CT of the abdomen and pelvis for further evaluation. STUDIES: EKG on 07/28/18, normal sinus rhythm, rate 71 beats per minute, normal axis, no EKG changes. CT abdomen and pelvis with IV contrast on 07/28/18. Impression: 1. No CT findings to correlate the patient's symptomatology. 2. Bosniak type 1 renal cyst. No follow up indicated. 3. Indeterminate splenic lesion, most commonly hemangioma, hamartoma or a lymphangioma. 4. Tiny bilateral pleural effusions again seen with mild compressive atelectasis in posterior lower lobes. PERTINENT LAB DATA: White blood cell count on admission 6.2, hemoglobin 13.4, hematocrit 40, platelet count 210. Hemoglobin at discharge 12.5, platelet count 198. Additional labs at admission: Total bilirubin 0.4, AST 16, ALT 19, alk phos 85. Urine culture positive for E. coli, which is sensitive to nitrofurantoin, CLOtest from EGD on 07/28/18, negative. At admission, lithium less than 0.10. DISCHARGE MEDICATIONS: 1. Plavix 75 mg p.o. daily, to discontinue on 08/15/18. 2. ThickenUp Clear powder packet 1 with each beverage and each meal. 3. Macrobid 100 mg p.o. q.12 hours x4 days. Continued home medications 1. Metformin 1000 mg p.o. b.i.d. 2. Benadryl 25 mg p.o. t.i.d. p.r.n. 3. Topamax 100 mg p.o. t.i.d. 4. Temazepam 15 to 30 mg p.o. at bedtime, maximum daily dose 30. 5. Crestor 5 mg p.o. daily. 6. MiraLAX 17 g p.o. daily p.r.n. constipation. 7. Protonix 20 mg p.o. daily. 8. Multivitamin 1 tab p.o. daily. 9. Milk of magnesia 30 mg p.o. q.6 hours p.r.n. constipation. 10. Latuda 80 mg p.o. q.p.m. 11. Wright 900 mg p.o. q.p.m. 12. Synthroid 88 mcg p.o. daily. 13. Ketoconazole 2% one application topically b.i.d. p.r.n. 14. Insulin glargine 20 units subcu daily. 15. Fluticasone nasal spray 2 sprays both nares daily. 16. Prozac 40 mg p.o. q.a.m. 17. Colace 100 mg p.o. b.i.d. 18. Flexeril 10 mg p.o. t.i.d. p.r.n. 19. Clozapine 300 mg p.o. at bedtime. 20. Symbicort 2 puffs inhaled b.i.d. 21. Tessalon 200 mg p.o. t.i.d. p.r.n. cough. 22. Albuterol inhaler 2 puffs inhaled q.4 hours p.r.n. shortness of breath, wheezing. 23. Tylenol 1000 mg p.o. b.i.d. p.r.n. pain. HISTORY OF PRESENT ILLNESS/HOSPITAL COURSE: The patient is a 53-year-old white female with past medical history significant for intellectual disability, type 2 diabetes, history of pancreatitis, history of duodenal ulcers and schizoaffective disorder, who presented to the emergency department on 07/27/18 with complaints of nausea, vomiting and diarrhea x4 days and hematemesis x2 days. Please see HPI by Stephanie Medrano, nurse practitioner, for additional details. Of note, the patient was recently discharged for TIA and started on Plavix on 07/16/18 and left against medical advice from [facility] 4-5 days prior to presentation for this admission. During her hospital stay, her Plavix was held in the setting of possible upper GI bleed. In the emergency department , she was placed on NG tube which did drain bright red blood. For the rest of her hospital stay, the NG tube was discontinued. There was no further hematemesis. Her endoscopy the following day did not demonstrate a source of GI bleed nor any sign of bleeding and H. pylori testing was negative. Her abdominal pain slowly improved during her stay. Her vomiting, nausea, and diarrhea resolved. She was not febrile and she did not have leukocytosis during her stay. It was determined that likely the cause of her symptomatology was a viral gastroenteritis. Although it was evident that she did have bright red blood, there was no evidence of any esophageal tear, esophageal variceal or gastric bleed on EGD, and therefore, a true upper GI bleed was never confirmed, although it is possible that Natividad-Neal tear occurred due to retching in the setting of vomiting for several days. It would be unlikely if this would be healed by the day of endoscopy, but it remains on the differential. Incidentally, the patient was found to have a UTI at admission and she was treated initially with ciprofloxacin; however, prior sensitivities demonstrate that this would not be effective. This was switched to Macrodantin. The patient 's dysuria did continue to improve during stay. During her stay, she was seen by a speech pathologist because she was complaining of dysphagia to thin liquids with coughing. C[employer] MACHINIST 2ND SHIFT recommended the diet which will be listed below. Additionally, she was seen by Physical Therapy who determined that she was safe to go home. The day after her admission, the patient did note a left-sided chest pain, which was confirmed to musculoskeletal, ACS rule out was completed, negative troponin, EKG was within normal limits During her hospital stay, for management of her diabetes, her home metformin was held and she was treated with 10 units subcu insulin glargine and sliding scale Lispro. Synthroid was continued for treatment of her hypothyroidism. For treatment of her schizoaffective disorder, her home lithium, Latuda, clozapine, Topamax, temazepam, and fluoxetine were continued. For treatment of her COPD, her home albuterol and Dulera inhaler was utilized for treatment. For her history of TIA , Lipitor was utilized since Crestor is not formulary. Please see progress note from today for subjective evaluation from date of discharge. REVIEW OF SYSTEMS: An 11-point review of systems was completed and all pertinent positives and negatives are in the HPI. All others systems were negative. PHYSICAL EXAMINATION: Please see progress note from today's date for physical exam for date of discharge. DISCHARGE PLAN: DIET: Kaylor thick liquid with liquids at meals. Soft diet, thin water okay between meals. ACTIVITY: Return to normal activity as tolerated. DISCHARGE INSTRUCTIONS: The patient is to continue taking Plavix as it appears that there was no confirmed diagnosis of upper GI bleed. It was only recommended for a month from the time of TIA diagnosis and therefore it can be discontinued on 08/15/18. Given the patient's risk factors, it was recommended that this be switched to a baby aspirin dose afterwards and this should be reviewed with her PCP, Dr. Bianchi. At this time, additionally it should be discussed that the patient opted for DNR during her hospital stay, but was easily swayed to reverse this DNR for her procedure of EGD. It may be beneficial to have this conversation with the patient as she may not have had full insight, though she did appear to be competent in making this decision during hospital stay. Additionally, a followup chest x-ray in 3 to 4 weeks is recommended as the CT abdomen and pelvis demonstrated small bilateral pleural effusions. The patient is to follow up with her outpatient psychiatrist Dr. Holcomb on 08/18/18, which was set up on her last admission. It was advised that the patient return to the hospital for vomiting, unable to tolerate liquids, hematemesis, melena, hematuria, fever, or chills. For the patient's schizoaffective disorder, she is to continue her home clozapine, fluoxetine, Latuda, lithium, Topamax and temazepam. For the patient' s diabetes, she is to continue her home metformin and insulin glargine. For treatment of her hypothyroidism, she is to continue her home Synthroid. For treatment of her previously diagnosed TIA, she is to continue rosuvastatin and previously mentioned Plavix. For treatment of COPD, her ProAir and Symbicort to be continued. CONDITION ON DISCHARGE: Stable. DISPOSITION: Home. TIME SPENT: Approximately 50 minutes was spent on this discharge; approximately half this time was spent at bedside. ARJUN MINA [id number]/CPS #: [id number] DAVION
== END 2018-07-29 16:30 | disposition home or self-care (01) | DRG 391 ==
LOC: ED 09:24 → MED 14:22 → OBSVTOIN 07-28 14:00
PROVIDERS: ADMIT Hospitalist; ATTEND Internal Medicine
PROC: 0DB68ZX Excision of Stomach, Via Natural or Artificial Opening Endoscopic, Diagnostic (ICD-10-PCS; principal; 2018-07-28)
PROC: 0D9670Z Drainage of Stomach with Drainage Device, Via Natural or Artificial Opening (ICD-10-PCS; 2018-07-28)
DX: A08.4 Viral intestinal infection, unspecified (principal); K22.6 Gastro-esophageal laceration-hemorrhage syndrome; K92.0 Hematemesis; N30.90 Cystitis, unspecified without hematuria; E66.9 Obesity, unspecified; J45.909 Unspecified asthma, uncomplicated; E11.9 Type 2 diabetes mellitus without complications; E03.9 Hypothyroidism, unspecified; E78.00 Pure hypercholesterolemia, unspecified; F79 Unspecified intellectual disabilities; R13.10 Dysphagia, unspecified; R07.89 Other chest pain; F25.1 Schizoaffective disorder, depressive type; Z86.73 Personal history of transient ischemic attack (TIA), and cerebral infarction without residual deficits; Z88.1 Allergy status to other antibiotic agents; Z91.018 Allergy to other foods; Z88.0 Allergy status to penicillin; Z68.38 Body mass index [BMI] 38.0-38.9, adult; Z88.8 Allergy status to other drugs, medicaments and biological substances; Z86.718 Personal history of other venous thrombosis and embolism; Z91.5 Personal history of self-harm; Z98.51 Tubal ligation status; Z82.49 Family history of ischemic heart disease and other diseases of the circulatory system; Z83.3 Family history of diabetes mellitus; Z87.11 Personal history of peptic ulcer disease; Z79.4 Long term (current) use of insulin
CPT/HCPCS: 36415; 74177; 80048; 80053; 80178; 81003; 81015; 82150; 82272; 83690; 84443; 84484; 85025; 85610; 85730; 86850; 86900; 86901; 87077; 87086; 87186; 88305; 90732; 93005; 94640; 99156; 99157; 99285; A9270-GY; J0744; J2250; J3010; Q9967

== ENCOUNTER 2018-08-31 16:52 | Emergency (ER) | payer MEDICARE, MEDICAID ==
--- NOTE | 2018-08-31 17:48 | UC ---
Skin Complaint HPI - HPI Summary HPI Summary: 53-year-old female with history of diabetes presents with complaints of a wound to her left lower leg. States she first noticed approximately one week ago. States it is very tender and she has noticed weeping drainage in the wound. No known injury. Denies fever, chills, or history of MRSA. - History of Current Complaint Chief Complaint: UCLowerExtremity Time Seen by Provider: 08/31/18 17:45 Stated Complaint: WOUND ON LEG Hx Obtained From: Patient Hx Last Menstrual Period: april 29 Pain Intensity: 10 - Allergy/Home Medications Allergies/Adverse Reactions: Allergies Allergy/AdvReac Type Severity Reaction Status Date / Time aspirin Allergy Unknown Verified 08/31/18 17:10 Reaction Details Cephalosporins Allergy Rash Verified 08/31/18 17:10 orange Allergy Swelling Verified 08/31/18 17:10 orange juice Allergy Swelling Verified 08/31/18 17:10 amoxicillin AdvReac Nausea And Verified 08/31/18 17:10 Vomiting Tetracyclines AdvReac Nausea And Verified 08/31/18 17:10 Vomiting PMH/Surg Hx/FS Hx/Imm Hx Endocrine History: Diabetes, Hypothyroidism Respiratory History: Asthma GI/ History: Gastrointestional Bleed Neurological History: TIA Psychological History: Schizophrenia Other History Of: Negative For: HIV, Hepatitis B, Hepatitis C, Anticoagulant Therapy - Surgical History Surgical History: Yes Surgery Procedure, Year, and Place: tubal ligation 1985 - Family History Known Family History: Positive: Cardiac Disease, Hypertension, Diabetes - Social History Occupation: Disabled Lives: Alone Alcohol Use: None Substance Use Type: None Smoking Status (MU): Never Smoked Tobacco Amount Used/How Often: states that she smoked one cigarette when she was 16 yrs. old Have You Smoked in the Last Year: No - Immunization History Most Recent Influenza Vaccination: this flu season ([id number]) Most Recent Pneumonia Vaccination: 07/29/18 Review of Systems All Other Systems Reviewed And Are Negative: Yes Constitutional: Negative: Fever, Chills Skin: Positive: Other - See HPI Respiratory: Positive: Negative Cardiovascular: Positive: Negative Gastrointestinal: Positive: Negative Genitourinary: Positive: Negative Musculoskeletal: Positive: Negative Neurological: Positive: Negative Is Patient Immunocompromised?: No Physical Exam - Summary Physical Exam Summary: GENERAL APPEARANCE: Alert and cooperative, chronically ill appearing adult female who appears to be in no acute distress. CARDIAC: Normal S1 and S2. No S3, S4 or murmurs. Rhythm is regular. There is no peripheral edema, cyanosis or pallor. Extremities are warm and well perfused. Capillary refill is less than 2 seconds. Peripheral pulses intact. LUNGS: Clear to auscultation without rales, rhonchi, wheezing or diminished breath sounds. ABDOMEN: Positive bowel sounds. Soft, nondistended, nontender. No guarding or rebound. No masses or hepatosplenomegally. MUSKULOSKELETAL: ROM intact to all extremities. No joint erythema or tenderness. Normal muscular development. Normal gait. SKIN: Tender 3.5 cm x 2 cm weeping, erythematous, vesicular lesion to the anterior proximal left lower leg. No induration or fluctuance noted. Triage Information Reviewed: Yes Vital Signs: Initial Vital Signs Temp 98.7 F 08/31/18 17:05 Pulse 62 08/31/18 17:05 Resp 18 08/31/18 17:05 Pulse Ox 100 08/31/18 17:05 Vital Signs Reviewed: Yes Course/Dx - Course Course Of Treatment: 53-year-old female with history of diabetes presents with complaints of a wound to her left lower leg. States she first noticed approximately one week ago. States it is very tender and she has noticed weeping drainage in the wound. No known injury. Denies fever, chills, or history of MRSA. Afebrile. Vital signs stable. Patient had a tender 3.5 cm x 2 cm weeping, erythematous, vesicular lesion to the anterior proximal left lower leg. No induration or fluctuance noted. I will treat her for an infected leg wound with Bactrim DS 1 tablet twice a day for 7 days. She was given the first dose in the clinic and provided a dose for in the morning. She is to follow-up with her primary care provider in 3 days for a wound check. Wound care, anticipatory guidance and warning symptoms were reviewed with the patient. Verbalizes understanding and agrees with plan of care. - Differential Diagnoses - Skin Complaint Differential Diagnoses: Abscess, Cellulitis, Local Allergic Reaction, MRSA - Diagnoses Provider Diagnosis: Wound of left lower extremity Discharge - Sign-Out/Discharge Documenting (check all that apply): Patient Departure All imaging exams completed and their final reports reviewed: No Studies - Discharge Plan Condition: Stable Disposition: HOME Prescriptions: Sulfamethox/Trimethoprim DS* [Bactrim DS 800/160 TAB*] 1 tab PO BID #14 tab Patient Education Materials: Acute Wounds (ED) Referrals: Jason Bianchi MD [Primary Care Provider] - 3 Days Additional Instructions: You appear to have an infected wound to your left lower leg. We will start you on an antibiotic to treat the infection. Start Bactrim DS 1 tab twice a day for 7 days. Keep the wound clean with a mild soap and water and keep covered with a non- stick dressing. You should change the dressing at least twice a day and anytime it becomes wet or soiled. Follow up with your primary care provided in 3 days for wound check. Seek immediate medical attention in the emergency room if you develop a fever greater than 100.5 F, have worsening pain, redness that spreads, increased swelling, or any worsening of symptoms. - Billing Disposition and Condition Condition: STABLE Disposition: Home - Attestation Statements Provider Attestation: Per institutional requirements, I have reviewed the chart, however, I was not consulted specifically or made aware of this patient by the midlevel provider. I did not personally evaluate, interact with , or disposition this patient.
[2018-08-31 18:00] VITALS: BP 140/78
[2018-08-31] MEDS ORDERED: Sulfamethox/Trimethoprim DS 800/160* TAB PO ONE (18:19)
== END 2018-08-31 18:29 | disposition home or self-care (01) ==
LOC: UCEAST 16:52
DX: S80.922A Unspecified superficial injury of left lower leg, initial encounter (principal); X58.XXXA Exposure to other specified factors, initial encounter; Y92.9 Unspecified place or not applicable; E11.9 Type 2 diabetes mellitus without complications; Z88.6 Allergy status to analgesic agent; Z88.1 Allergy status to other antibiotic agents; Z88.0 Allergy status to penicillin; Z91.018 Allergy to other foods
CPT/HCPCS: 99213; A9270-GY; G0463

== ENCOUNTER 2018-09-20 02:13 | Observation (INO) | payer MEDICARE, MEDICAID ==
--- NOTE | 2018-09-20 02:54 | ED ---
Complex/Multi-Sys Presentation - HPI Summary HPI Summary: Patient is a 53 y/o F presenting to ED via EMS with complaints of inability to speak. Patient claims that she could not talk starting at 182909/19/18. She additionally claims to have difficulty ambulating. However, during EMS transport , the patient made no note of acute neurological symptoms. In the room, patient is capable of speaking with some dysarthia. Roommate had called EMS and reported to them that the patient was lethargic throughout today and had a low BG. Hx of diabetes. EMS reports FSBG of 136. EMS note that the patient had a bizarre affect throughout transport. Patient denies substance usage and pain medication usage. She reports that she is on lithium, Prozac, klonopin. Hx of diabetes, Thyroid disease, HLD, DVT, asthma, schizophrenia, suicide attempt. Home medications and allergies are reviewed. 0257 - code siddhartha called on overhead. - History Of Current Complaint Chief Complaint: EDAltMentalStatus Time Seen by Provider: 09/20/18 02:23 Hx Obtained From: Patient, EMS Onset/Duration: Lasting Hours - difficulty speaking onset 182909/19/18, Still Present Timing: Hours - difficulty speaking onset 182909/19/18 Aggravating Factor(s): nothing Alleviating Factor(s): nothing Associated Signs And Symptoms: Positive: Other - difficulty speaking and ambulating, lethargic, bizarre affect. - Allergies/Home Medications Allergies/Adverse Reactions: Allergies Allergy/AdvReac Type Severity Reaction Status Date / Time aspirin Allergy Unknown Verified 09/20/18 03:39 Reaction Details Cephalosporins Allergy Rash Verified 09/20/18 03:39 orange Allergy Swelling Verified 09/20/18 03:39 orange juice Allergy Swelling Verified 09/20/18 03:39 amoxicillin AdvReac Nausea And Verified 09/20/18 03:39 Vomiting Tetracyclines AdvReac Nausea And Verified 09/20/18 03:39 Vomiting PMH/Surg Hx/FS Hx/Imm Hx Endocrine/Hematology History: Reports: Hx Diabetes, Hx Thyroid Disease Denies: Hx Anticoagulant Therapy Cardiovascular History: Reports: Hx Deep Vein Thrombosis, Hx Hypercholesterolemia Denies: Hx Congestive Heart Failure, Hx Hypertension, Hx Myocardial Infarction, Hx Pacemaker/ICD Respiratory History: Reports: Hx Asthma Denies: Hx Chronic Obstructive Pulmonary Disease (COPD), Hx Lung Cancer, Hx Pneumonia, Hx Pulmonary Embolism GI History: Reports: Hx Ulcer History: Denies: Hx Dialysis, Hx Renal Disease Sensory History: Denies: Hx Contacts or Glasses, Hx Hearing Aid Opthamlomology History: Denies: Hx Contacts or Glasses Neurological History: Denies: Hx Dementia, Hx Migraine, Hx Seizures, Hx Transient Ischemic Attacks (TIA) Psychiatric History: Reports: Hx Inpatient Treatment, Hx Community Mental Health Tx, Hx Schizophrenia, Hx Suicide Attempt Denies: Hx Anxiety, Hx Eating Disorder, Hx Depression, Hx Panic Disorder, Hx Bipolar Disorder, Hx of Violent Episodes Against Others - Cancer History Hx Chemotherapy: No Hx Radiation Therapy: No - Surgical History Surgery Procedure, Year, and Place: tubal ligation 1985 Infectious Disease History: No Infectious Disease History: Denies: Hx Hepatitis, Hx Human Immunodeficiency Virus (HIV), Traveled Outside the [place] in Last 30 Days - Family History Known Family History: Positive: Cardiac Disease, Hypertension, Diabetes - Social History Alcohol Use: None Hx Substance Use: No Substance Use Type: Reports: None Hx Tobacco Use: No Smoking Status (MU): Never Smoked Tobacco Amount Used/How Often: states that she smoked one cigarette when she was 16 yrs. old Have You Smoked in the Last Year: No Review of Systems Constitutional: Other - positive - lethargic Neurological: Other - positive - difficulty ambulating and speaking Psychological: Other - positive - bizarre affect All Other Systems Reviewed And Are Negative: Yes Physical Exam - Summary Physical Exam Summary: VITAL SIGNS: Reviewed. GENERAL: Patient is a well-developed and nourished female who is lying comfortable in the stretcher. Patient is not in any acute respiratory distress. She appears lethargic. HEAD AND FACE: No signs of trauma. No ecchymosis, hematomas or skull depressions. No sinus tenderness. EYES: PERRLA, EOMI x 2, No injected conjunctiva, no nystagmus. EARS: Hearing grossly intact. Ear canals and tympanic membranes are within normal limits. MOUTH: Oropharynx within normal limits. NECK: Supple, trachea is midline, no adenopathy, no JVD, no carotid bruit, no c- spine tenderness, neck with full ROM CHEST: Symmetric, no tenderness at palpation LUNGS: Clear to auscultation bilaterally. No wheezing or crackles. CVS: Regular rate and rhythm, S1 and S2 present, no murmurs or gallops appreciated. ABDOMEN: Soft, non-tender. No signs of distention. No rebound no guarding, and no masses palpated. Bowel sounds are normal. EXTREMITIES: FROM in all major joints, no edema, no cyanosis or clubbing. NEURO: Mild dysarthira noted. Difficulty walking because she appears to be off balance. GCS 15, NIH 3. SKIN: Dry and warm Triage Information Reviewed: Yes Vital Signs On Initial Exam: Initial Vitals Temp Pulse Resp BP Pulse Ox 96.6 F 83 15 130/62 93 09/20/18 02:27 09/20/18 02:27 09/20/18 02:27 09/20/18 02:27 09/20/18 02:27 Vital Signs Reviewed: Yes Diagnostics - Vital Signs Vital Signs Temp Pulse Resp BP Pulse Ox 09/20/18 02:27 96.6 F 83 15 130/62 93 - Laboratory Result Diagrams: 09/20/18 03:35 09/20/18 03:35 Lab Statement: Any lab studies that have been ordered have been reviewed, and results considered in the medical decision making process. - Radiology CXR Radiology Interpretation Completed By: ED Physician Summary of Radiographic Findings: NAD, pending official report. - CT BRAIN CT CT Interpretation Completed By: Radiologist Summary of CT Findings: BRAIN CT IMPRESSION: No intracranial abnormality. THIS REPORT WAS REVIEWED BY DR. TAVERAS. HEAD/NECK CTA CT Interpretation Completed By: Radiologist Summary of CT Findings: CTA NECK IMPRESSION: Mild narrowing of the supraclinoid segment of the right internal carotid artery. Aplastic right A1 segment. Right A2 segment is unremarkable. Right vertebral artery is diminutive in caliber and likely terminate as PICA. CTA HEAD IMPRESSION: No acute finding. THIS REPORT WAS REVIEWED BY DR. TAVERAS. - EKG 0320 Cardiac Rate: NL - rate of 66 BPM EKG Rhythm: Sinus Rhythm Summary of EKG Findings: EKG showed sinus rhythm with rate of 66 BPM, non- specific T wave changes. 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 Non-Paretic Hand: Both Correctly Best Gaze (Only Horizontal Eye Movement): Normal Visual Field Testing: No Visual Loss Facial Paresis-Pt to Smile & Close Eyes or Grimace Symmetry: Normal/Symmetrical Motor Function - Right Arm: No Drift-Holds 10 Seconds Motor Function - Left Arm: No Drift-Holds 10 Seconds Motor Function - Right Leg: No Drift-Holds 10 Seconds Motor Function - Left Leg: No Drift-Holds 10 Seconds Limb Ataxia-Must be out of Proportion to Weakness Present: Present in Two Limbs Sensory (Use Pinprick to Test Arms/Legs/Trunk/Face): Normal Best Language (Describe Picture, Name Items): No Aphasia Dysarthria (Read Several Words): Slurs Some Words Extinction and Inattention: No Abnormality Total Score: 3 Complex Multi-Symp Course/Dx Course Of Treatment: Patient is a 53 y/o F presenting to ED via EMS with complaints of inability to speak. Patient claims that she could not talk starting at 1830 09/19/18. She additionally claims to have difficulty ambulating. However, during EMS transport, the patient made no note of acute neurological symptoms. In the room, patient is capable of speaking with some dysarthia. Roommate had called EMS and reported to them that the patient was lethargic throughout today and had a low BG. Hx of diabetes. EMS reports FSBG of 136. EMS note that the patient had a bizarre affect throughout transport. Patient denies substance usage and pain medication usage. She reports that she is on lithium, Prozac, klonopin. Hx of diabetes, Thyroid disease, HLD, DVT, asthma, schizophrenia, suicide attempt. Home medications and allergies are reviewed. 0257 - code carl called on overhead. on physical exam, patient is noted to be somewhat lethargic, mild dysarthria noted. Patient seemed to have some difficulty with ambulation because she seemed to be off balance. GCS 15. NIH 3. EKG showed sinus rhythm with rate of 66 BPM, non-specific T wave changes. CXR NAD. BRAIN CT IMPRESSION: No intracranial abnormality. CTA NECK IMPRESSION: Mild narrowing of the supraclinoid segment of the right internal carotid artery. Aplastic right A1 segment. Right A2 segment is unremarkable. Right vertebral artery is diminutive in caliber and likely terminate as PICA. Labs showed Plt count 146, potassium 3.3, creatinine 1, glucose 136, trop 0, lactic acid 1, triglycerides 127, cholesterol 204, LDL cholesterol 138, HDL cholesterol 40.4. UA showed trace ketones. Hurley was < 0.1. ABG showed pO2 73. CTA HEAD IMPRESSION: No acute finding. During ED course, patient received fluids, klor con er tab 40 meq PO, narcan 2 mg IV PUSH. Narcan had no noted effect. Not given ASA as she is allergic. Patient's case was discussed with Dr. Avalos, Dr. Avalos accepts for admission. - Diagnoses Provider Diagnoses: CVA (cerebral vascular accident) During the Visit The Following Alert/Code Occurred: Code Ayala - 0257 - code carl called on overhead. Telestroke usage was declined. - Physician Notifications Discussed Care Of Patient With: Joselin Avalos Time Discussed With Above Provider: 05:09 Instructed by Provider To: Other - 0325 - Dr. Veronica communicated negative brain CT for patient. 0509 - Patient's case was discussed with Dr. Avalos, Dr. Avalos accepts for admission. Discharge - Sign-Out/Discharge Documenting (check all that apply): Patient Departure - ADMIT Patient Received Moderate/Deep Sedation with Procedure: No - Discharge Plan Condition: Fair Disposition: ADMITTED TO [facility] - Billing Disposition and Condition Condition: FAIR Disposition: Admitted to [facility] - Attestation Statements Document Initiated by Marbinibe: Yes Documenting Scribe: BERKLEY SOFIA Provider For Whom Dae is Documenting (Include Credential): BASIL TAVERAS MD Scribe Attestation: BERKLEY Mesa, scribed for BASIL TAVERAS MD on 09/20/18 at 2157. Scribe Documentation Reviewed: Yes Provider Attestation: The documentation as recorded by the BERKLEY boss accurately reflects the service I personally performed and the decisions made by ONDINA zuniga MD Status of Scribe Document: Viewed
[2018-09-20] MEDS ORDERED: NS 0.9% 1000 ML** 1,000 ML IV ONE (02:58)
[2018-09-20] MEDS ORDERED: Naloxone* 0.4 MG/ML 1 ML VIAL IV PUSH ONE (03:00)
[2018-09-20] MEDS ORDERED: Iodixanol* (CONTRAST) 320 MG/ML 100 ML SDV IV ONE (03:16)
[2018-09-20 03:45] LABS: ABS Eosinophils 0.1 10^3/ul (0-0.6); ABS Lymphocytes 1.3 10^3/ul (1.0-4.8); ABS Monocytes 0.3 10^3/ul (0-0.8); ABS Neutrophils 2.8 10^3/ul (1.5-7.7); Eosinophil % 2.8 %; Hematocrit 40 % (35-47); Hemoglobin 13.5 g/dL (12.0-16.0); Lymphocyte % 28.4 %; Mean Corpuscular HGB Conc 34 g/dL (31-36); Mean Corpuscular Hemoglobin 30 pg (27-31); Mean Corpuscular Volume 88 fL (80-97); Mean Platelet Volume 8.5 fL (7.4-10.4); Platelet Count 146 10^3/uL (150-450); Red Blood Count 4.52 10^6 /uL (3.70-4.87); Red Cell Distribution Width 15 % (10-15); White Blood Count 4.6 10^3/uL (3.5-10.8)
[2018-09-20 03:59] LABS: ALT 19 U/L (7-52); AST 16 U/L (13-39); Albumin 4.2 g/dL (3.2-5.2); Alkaline Phosphatase 73 U/L (34-104); Anion Gap 9 mmol/L (2-11); Blood Urea Nitrogen 17 mg/dL (6-24); CO2 Carbon Dioxide 22 mmol/L (22-32); Calcium 9.3 mg/dL (8.6-10.3); Chloride 110 mmol/L (101-111); Cholesterol 204 mg/dL; EGFR African American 69.7 (>60); EGFR Non-African American 57.6 (>60); Globulin 2.1 g/dL (2-4); Glucose 136 mg/dL (70-100); HDL Cholesterol 40.4 mg/dL; LDL Cholesterol 138 mg/dL; Potassium 3.3 mmol/L (3.5-5.0); Sodium 141 mmol/L (135-145); Total Protein 6.3 g/dL (6.4-8.9); Triglycerides 127 mg/dL
[2018-09-20 04:06] LABS: Lithium < 0.10 mmol/L (0.6-1.2)
[2018-09-20 04:11] LABS: Activated Partial Thrombo Time 29.4 seconds (26.0-38.0); INR 1.01 (0.82-1.09)
[2018-09-20] MEDS ORDERED: Potassium Chlor TAB* 20 MEQ TAB.ER PO ONE ×2 (04:25→04:30)
[2018-09-20 06:13] LABS: Urine Appearance Clear; Urine Bilirubin Negative (Negative); Urine Blood Negative (Negative); Urine Color Colorless; Urine Glucose Negative (Negative); Urine Ketones Trace (Negative); Urine Nitrite Negative (Negative); Urine Protein Negative (Negative); Urine Specific Gravity 1.013 (1.010-1.030); Urine Urobilinogen Negative (Negative)
[2018-09-20] MEDS ORDERED: Albuterol HFA INHALER* 8 gm MDI INH PRN (08:56)
[2018-09-20] MEDS ORDERED: Dextrose 50% Syringe 50 ML* 25 GM/50 ML SYRINGE IV PUSH PRN (09:11)
--- NOTE | 2018-09-20 10:13 | HP ---
HISTORY AND PHYSICAL: ADDENDUM: On further review of Erin's records, it appears that her Plavix was only prescribed for 30 days and it was discontinued mid July; therefore, I am adding back Plavix. I note that this is for history of allergy to ASPIRIN. [id number]/[facility] #: [id number] [facility]
--- NOTE | 2018-09-20 10:56 | HP ---
HISTORY AND PHYSICAL: ADDENDUM: DATE OF ADMISSION: 09/20/18 Regarding the patient . Her roommate may have some valid concerns given her repeated hospitalizations recently, question of polypharmacy versus nonadherence with her medications and I will consult Social Work and Physical Therapy. [id number]/[facility] #: [id number] DAVION
--- NOTE | 2018-09-20 10:56 | HP ---
TWO ADDENDUMS NOW INCLUDED ON THIS REPORT HISTORY AND PHYSICAL: DATE OF ADMISSION: 09/20/18 TIME OF ADMISSION: 8:30 a.m. PRIMARY CARE PHYSICIAN: Dr. Bianchi. PSYCHIATRIST: Dr. Holcomb. CHIEF COMPLAINT: "I hurt my foot bad" HISTORY OF PRESENT ILLNESS: This is a 53-year-old woman with history of bipolar disorder, diabetes, and schizoaffective disorder, who presented to the emergency department this morning after her roommate called EMS. According to EMS reports and nursing documentation, Cindy was concerned that Erin's blood sugar was low because she was having trouble formulating sensitives, however, Erin says that Cindy called EMS because Cindy does not think that Erin can take care of herself. Erin, however, disagrees with this. She has no complaints at this time and feels like herself. A code carl was initially called in the emergency department, but was then cancelled. Erin believes that she is here because she hurt her left foot. She does have a scab on the dorsal surface of her left foot and she is not sure when this occurred or how it got there. She denies chest pain, headache, shortness of breath, fever, nausea, vomiting, diarrhea, constipation, weakness, falls, and does not feel she is slurring her speech. She notes that she does not have her dentures in, but that she always has had slurred speech. I attempted tot reach Erin's son, Michael at the number she provided, which is [phone], but he did not answer. I also attempted to reach her roommate, Cindy with the number that Erin provided as [phone] and she also did not answer. I attempted to reach her psychiatrist, Dr. Holcomb, however, he was in a meeting. In the emergency department, a CT head was unremarkable and her lithium level was found to be undetectable. The workup was otherwise unremarkable. PAST MEDICAL HISTORY: Type 2 diabetes, obesity, schizoaffective disorder, pancreatitis, intellectual disability, history of right upper extremity DVT, history of duodenal ulcers, history of a TIA, and a recent admission for possible upper GI bleed, however, an upper endoscopy was unrevealing. ALLERGIES: ASPIRIN, CEPHALOSPORIN, AMOXICILLIN, and TETRACYCLINE. FAMILY HISTORY: Positive for diabetes. SOCIAL HISTORY: She lives with her roommate, Cindy in [place]. Her healthcare proxy is her son, Michael and she has never used tobacco, alcohol , or drugs. REVIEW OF SYSTEMS: As per the HPI, remainder of the 14-point review of systems is negative. PHYSICAL EXAMINATION GENERAL: Drowsy female who was alert to voice when I entered the room. She acknowledges me and appropriately greets me. VITAL SIGNS: Temperature 97.1, heart rate 81, respiratory rate 18, pulse ox 97 % on room air, blood pressure 125/65. HEENT: Her pupil are 3 mm bilaterally and reactive to light. Her oral mucosa is dry. Her face is symmetric. Her cranial nerves are intact. She has no nystagmus. NECK: No JVP or adenopathy. LUNGS: Her lungs are clear bilaterally. CHEST: Regular rate and rhythm with no murmurs. ABDOMEN: Obese, soft, nontender, nondistended. No CVA tenderness. No guarding or rebound. Bowel sounds are normoactive. EXTREMITIES: No edema or rashes. She does have a 1.5 cm scab over the dorsum of the left foot with no surrounding erythema or drainage. NEUROLOGIC: Her strength is 5/5 in all extremities. Her sensation is intact. She is oriented to person, place and time. She does have slurred speech, however, when you ask her to clarify, she is able to enunciate more clearly. DIAGNOSTIC STUDIES/LABORATORY DATA: White blood cells 4.6, hemoglobin 13.5, platelets 146, INR 1.01. AB.42/36/73. Sodium 141, potassium 3.3, chloride 110, BUN 17, creatinine 1.0, glucose 136, lactic acid 1.0. LFTs were unremarkable. Triglycerides 127, cholesterol 204. Urinalysis was unremarkable and the lithium level was less than 0.1. Imaging: Brain CT shows no intracranial abnormality. Head CTA shows mild narrowing of the supraclinoid segment of the right internal carotid artery, aplastic right A1 segment, right A2 is unremarkable. Right vertebral artery is diminutive in caliber and likely terminates as PICA. The CTA of the neck shows no acute finding. Chest x-ray: No active cardiopulmonary disease is noted. EKG: Normal sinus rhythm. Normal axis. Prolonged QRS of 124 with nonspecific interventricular conduction delay morphology, no ST or T-wave changes. ASSESSMENT AND PLAN: This is a 53-year-old woman with history of bipolar, schizoaffective and diabetes and transient ischemic attack, who presents to the emergency department with slurred speech, however, I have been unable to obtain collateral information regarding her history or what her roommate witnessed this morning. 1. Dysarthria. It is unclear to me how different this is from her baseline, however, on review of her physical exams that have been documented in prior admissions, I do not see any mention of dysarthria. Her CT and CTA are unremarkable. An MRI is pending at this time. She is known to the neurology service as well as the psychiatry service. I have a phone call out to Dr. Holcomb to discuss her medications since her lithium level is subtherapeutic. I will consult Neurology for further TIA/CVA workup and I will continue her Plavix and atorvastatin. Her lipid panel is not at goal, so I will increase her atorvastatin dose. She did have an echocardiogram in June of 2018, which showed an ejection fraction of 55% to 60% with no PFO and a negative bubble study with no visualized clot. She has no history of AFib, but we will monitor her on tele. 2. Bipolar/schizoaffective disorder. Again, I have a call out to psychiatrist , Dr. Holcomb to discuss the efficacy of her medications and whether being suboptimally therapeutic on her psych meds may be contributing to her presentation. For now, I will continue her prescribed antipsychotic medications with clozapine, fluoxetine, lithium, Latuda, and Topamax. 3. Type 2 diabetes. Continue Lantus 20 units daily. 4. Hypothyroid. Check TSH and continue Synthroid at 88 mcg daily. 5. DVT prophylaxis. Lovenox subcutaneously. 6. Disposition: Admit to observation for TIA workup. ADDENDUM NO. 1: On further review of Erin's records, it appears that her Plavix was only prescribed for 30 days and it was discontinued mid July; therefore, I am adding back Plavix. I note that this is for history of allergy to ASPIRIN. ADDENDUM NO. 2: Regarding the patient . Her roommate may have some valid concerns given her repeated hospitalizations recently, question of polypharmacy versus nonadherence with her medications and I will consult Social Work and Physical Therapy. [id number]/[facility] #: [id number] #: [id number] #: [id number] [facility]ITALAicha
[2018-09-20] MEDS: Insulin LISPRO* 1 UNITS UNIT SUBCUT SCH ×3 (11:46→22:23)
[2018-09-20] MEDS: FLUoxetine CAP* 20 MG PO SCH (11:51)
[2018-09-20] MEDS: Topiramate TAB(*) 100 MG PO SCH ×2 (11:51→22:10)
[2018-09-20] MEDS: Clopidogrel TAB* 75 MG PO SCH (11:51)
[2018-09-20] MEDS: Pantoprazole TAB * 40 MG TAB PO SCH (11:51)
[2018-09-20] MEDS: Insulin GLARGINE(*) 1 UNITS UNIT SUBCUT SCH (11:51)
[2018-09-20] MEDS: Enoxaparin(*) 40 MG/0.4 ML SYR SUBCUT SCH (11:52)
[2018-09-20] MEDS: Levothyroxine TAB* 88 MCG TAB PO SCH (11:53)
--- NOTE | 2018-09-20 14:49 | CONS ---
NEUROLOGY CONSULTATION NOTE: DATE OF CONSULT: 09/20/18 CONSULTING PROVIDER: Dr. Thania Salazar. REASON FOR CONSULT: Slurred speech. CHIEF COMPLAINT: Slurred speech. HISTORY OF PRESENT ILLNESS: Mrs. Urban is a 53-year-old right-handed female, who has history of schizoaffective disorder and questionable history of TIA in the past, who presented to the emergency room this morning after her roommate contacted EMS for new onset of slurred speech. The patient stated the symptoms started this morning. She suddenly noticed that she is slurring her words. This is not accompanied by any headaches, facial droop, or weakness. She has never had any symptoms like this before. She thought she was here because she hurt her left foot. The patient denied any chest pain, shortness of breath, or palpitation. I reviewed the history from previous hospitalization. The patient apparently had some neurological complaints in June 2018, where she was seen by both Dr. Bee and Dr. Tilley. Her examination was found to be functional related and at that time, she had reported right-sided weakness and right facial droop. She was placed on Plavix and continued on atorvastatin. NIH stroke scale of 1 due to intermittent slurred speech at this time. The patient continues to be asymptomatic, but was very frustrated during the examination saying, "I have already told everyone about my symptoms, why do I need to keep repeating it?" She was clear when stating that sentence and did not have any evidence of slurred speech. PAST MEDICAL HISTORY: Type 2 diabetes, obesity, schizoaffective disorder, pancreatitis, intellectual disability, history of right upper extremity DVT, history of duodenal ulcer, reported TIA, and GI bleeding. MEDICATIONS: 1. Fluoxetine 40 mg p.o. in the morning. 2. [place] 900 mg p.o. at bedtime. 3. Temazepam 15 mg p.o. at bedtime. 4. Metformin 1000 mg p.o. b.i.d. 5. Topiramate 100 mg p.o. b.i.d. 6. Rosuvastatin 5 mg p.o. daily. 7. Lurasidone 80 mg p.o. bedtime. 8. Clozapine 300 mg p.o. at bedtime. 9. Cyclobenzaprine 10 mg p.o. 4 times a day. 10. Flonase. 11. Multivitamin. 12. Symbicort. 13. Albuterol. 14. Insulin Lantus 20 units subcutaneous daily. 15. Levothyroxine 88 mcg p.o. daily. 16. Pantoprazole 40 mg p.o. daily. ALLERGIES: ASPIRIN, CEPHALOSPORIN, AMOXICILLIN, TETRACYCLINE. FAMILY HISTORY: Positive for diabetes. SOCIAL HISTORY: She lives with her roommate. She denied any tobacco or alcohol use. REVIEW OF SYSTEMS: A 14-point review of systems was obtained and otherwise negative, except for what was mentioned in the HPI. PHYSICAL EXAM: Vital Signs: Temperature of 98, heart rate of 74, respiratory rate of 20, oxygen saturation of 98%, blood pressure 134/80. General: Well- nourished obese female, in no acute distress. She does not have her dentures on today. Head: Normocephalic, atraumatic without obvious abnormality. Eyes: Conjunctivae/corneas are clear. Neck is supple and symmetrical with no carotid bruit. Lungs: Clear to auscultation bilaterally. Cardiovascular: Regular rate and rhythm with normal S1, S2. Extremities: Normal range of motion with no cyanosis. Skin: No skin lesions or laceration. Psych: Affect is flat and irritable mood. Mental Status: Awake, alert, and oriented to person, place, time, and general circumstance. She has intermittent fluctuating flaccid dysarthria that changes with tone and wakefulness. She seems drowsy. Cranial nerves: Normal confrontation testing bilaterally. Sensation is intact in the forehead, cheeks, and jaw region bilaterally. There is no facial droop. There is slight loss of the nasolabial fold on the right. Able to hear throughout the history process. Symmetrical palatal elevation. Normal strength against shoulder shrug. Tongue is symmetrical and midline with no atrophy or fasciculation. Motor Examination: No abnormal movement, no pronator drift; 5/ 5 strength in the upper and lower extremities when she is encouraged to give full effort. Reflexes: 1+ throughout the upper extremities and absent in the lower extremities bilaterally. Sensation is intact to light touch throughout. Coordination: Normal [id number]. Gait and Station: Was not assessed due to the patient's drowsiness. DIAGNOSTIC STUDIES/LAB DATA: Please note that CT head and CTA head and neck were obtained and personally reviewed. There is no evidence of intracranial abnormality. There is mild narrowing of the supraclinoid segment of the right ICA. There is aplastic right A1 segment and there is diminution in caliber of the right vertebral artery. WBC 4.6, hemoglobin 13.5, hematocrit of 40, platelet count of 146. INR is 1.01. PCO2 of 36, pO2 of 73, HCO3 of 24. Sodium 141, potassium 3.3, creatinine 1, glucose of 136, lactic acid of 1. LDL of 138. Urinalysis negative for pyuria. [place] less than 0.10. ASSESSMENT AND RECOMMENDATION: Mrs. Erin Urban is a 53-year-old female with history of psychiatric illness, diabetes mellitus, hypertension, dyslipidemia who presented to [facility] with slurred speech and left foot pain. Neurology was contacted to evaluate the patient for slurred speech. On examination today, the patient had fluctuating dysarthria that is flaccid in nature. She stated that she usually wears dentures but she not have her dentures today. She is concerned about the slurred speech. Given that the pattern fluctuates, I am less concerned about a vascular phenomenon. This was also supported by the lack of any new facial droop, visual disturbance, or focal motor weakness, which would usually present with dysarthria. Flaccid dysarthria mostly localizes to outside the nervous system such as heaviness of the tongue or a neuromuscular junction disorder. However, functional disorder is also high on the differential given her previous neurological complaints were sought to be functional by my colleagues (she had a negative brain MRI in June). In the meantime, I would recommend obtaining an MRI of brain without contrast to rule out any structural abnormalities and support the clinical diagnosis of a nonvascular cause for her dysarthria. I agree with increasing atorvastatin to 40 mg nightly. Continue clopidogrel. We cannot add aspirin given that the patient has an allergy to ASPIRIN and the likelihood of stroke is low in this case. Continue Lovenox 40 mg subcutaneously every 24 hours for DVT prophylaxis. We may need to consult with psychiatry to evaluate for possible toxic encephalopathy that could be explained by excessive psychotropic medications that she is currently taking. Lastly, if the MRI is negative for stroke, I would recommend slowly decreasing Topamax by 50 mg every week until a maintenance dose of 50 mg twice daily given that Topamax can cause psychomotor slowing, memory impairment, and may be contributing to her dysarthria. If not yet obtained, please check vitamin B12 and TSH. I will continue to follow. [id number]/[facility] #: [id number] DAVION
[2018-09-20] MEDS ORDERED: Lurasidone(*) 80 MG TAB PO SCH (18:00)
[2018-09-20] MEDS ORDERED: Lithium Carbonate TAB* 300 MG PO SCH (21:00)
[2018-09-20] MEDS ORDERED: Atorvastatin* 40 MG TAB PO SCH (21:00)
[2018-09-20] MEDS ORDERED: Temazepam CAP* 15 MG PO SCH (21:00)
[2018-09-20] MEDS ORDERED: CloZAPine TAB* 100 MG TAB PO SCH (21:00)
[2018-09-20] MEDS ORDERED: LURASIDONE 80 MG PO SCH (22:06)
[2018-09-21] MEDS: Levothyroxine TAB* 88 MCG TAB PO SCH (06:12)
[2018-09-21] MEDS: Enoxaparin(*) 40 MG/0.4 ML SYR SUBCUT SCH (08:47)
[2018-09-21] MEDS: Insulin LISPRO* 1 UNITS UNIT SUBCUT SCH ×3 (08:47→17:10)
[2018-09-21] MEDS: Topiramate TAB(*) 100 MG PO SCH (08:48)
[2018-09-21] MEDS: Clopidogrel TAB* 75 MG PO SCH (08:48)
[2018-09-21] MEDS: Insulin GLARGINE(*) 1 UNITS UNIT SUBCUT SCH (08:48)
[2018-09-21] MEDS: FLUoxetine CAP* 20 MG PO SCH (08:48)
[2018-09-21] MEDS: Pantoprazole TAB * 40 MG TAB PO SCH (08:48)
--- NOTE | 2018-09-21 10:09 | PN ---
Subjective Date of Service: 09/21/18 Interval History: HD # 2 on 09/21 53 yo F PMH schizoaffective d/o, intellectual disability, asthma, IDDM who p/w weakness and slurred speech, imaging normal and neurology exam not reproducible , neuro possible TIA vs functional embellishment of sx. Overnight, no acute events, VSS, voiding freely, tolerating PO Labs: Unremarkable This morning, pt reports that her foot pain is better, mild speech impediment but clear fluid speech on my exam. Poor historian at baseline but discussed with her mental health team our concerns with polypharmacy and they agree for post hospital follow up in 2 days. She has no other complaints or questions Objective Active Medications: Albuterol (Ventolin Hfa Inhaler*) 2 puff INH Q4H PRN PRN Reason: SHORTNESS OF BREATH Atorvastatin Calcium (Lipitor*) 40 mg PO 2100 [facility] Last Admin: 09/20/18 22:09 Dose: 40 mg Clopidogrel Bisulfate (Plavix Tab*) 75 mg PO DAILY [facility] Last Admin: 09/21/18 08:48 Dose: 75 mg Clozapine (Clozapine Tab*) 300 mg PO BEDTIME [facility] Last Admin: 09/20/18 22:11 Dose: 300 mg Dextrose (D50w Syringe 50 Ml*) 12.5 gm IV PUSH .FOR FS < 60 - SS PRN PRN Reason: FS < 60 Enoxaparin Sodium (Lovenox(*)) 40 mg SUBCUT Q24H [facility] Last Admin: 09/21/18 08:47 Dose: 40 mg Fluoxetine HCl (Prozac Cap*) 40 mg PO QAM [facility] Last Admin: 09/21/18 08:48 Dose: 40 mg Insulin Glargine (Lantus(*)) 20 units SUBCUT DAILY [facility] Last Admin: 09/21/18 08:48 Dose: 20 units Insulin Human Lispro (Humalog*) 0 units SUBCUT ACHS [facility]; Protocol Last Admin: 09/21/18 08:47 Dose: 2 units Levothyroxine Sodium (Synthroid Tab*) 88 mcg PO 0600 [facility] Last Admin: 09/21/18 06:12 Dose: 88 mcg [place] Carbonate ([place] Carbonate Tab*) 900 mg PO BEDTIME [facility] Last Admin: 09/20/18 22:11 Dose: 900 mg Lurasidone HCl (Latuda) 80 mg PO QPM [facility] Pantoprazole Sodium (Protonix Tab*) 40 mg PO DAILY [facility] Last Admin: 09/21/18 08:48 Dose: 40 mg Temazepam (Restoril Cap*) 15 mg PO BEDTIME [facility] Last Admin: 09/20/18 22:15 Dose: Not Given Topiramate (Topamax(*)) 100 mg PO BID [facility] Last Admin: 09/21/18 08:48 Dose: 100 mg Vital Signs - 8 hr 09/21/18 09/21/18 04:15 07:33 Temperature 97.6 F 97.6 F Pulse Rate 94 92 Respiratory 15 18 Rate Blood Pressure 112/65 132/82 (mmHg) O2 Sat by Pulse 97 98 Oximetry Oxygen Devices in Use Now: None Appearance: Guarded on exam but no acute distress Eyes: No Scleral Icterus, PERRLA Ears/Nose/Mouth/Throat: Clear Oropharnyx, Mucous Membranes Moist, - - Adentulous Neck: NL Appearance and Movements; NL JVP Respiratory: Symmetrical Chest Expansion and Respiratory Effort, Clear to Auscultation Cardiovascular: NL Sounds; No Murmurs; No JVD, RRR Abdominal: NL Sounds; No Tenderness; No Distention Lymphatic: No Cervical Adenopathy Extremities: No Edema Skin: No Rash or Ulcers Neurological: - - Oriented x 3, slow speech but no clear dysarthria 5/5 strength in all 4 limbs, sensation intact Result Diagrams: 09/21/18 11:07 09/21/18 11:07 Diagnostic Imaging: MRI 09/20: Normal Assess/Plan/Problems-Billing Assessment: 53 yo F PMH schizoaffective d/o, intellectual disability, asthma, IDDM who p/w weakness and slurred speech, Imaging normal and neurology exam not reproducible , neuro possible TIA vs functional embellishment of sx. - Patient Problems (1) Dysarthria Current Visit: No Status: Acute Code(s): R47.1 - DYSARTHRIA AND ANARTHRIA SNOMED Code(s): 8065559 Comment: - Seems to have mild speech impediment. Though clears when more engaged in conversation - Possibly polypharmacy contributing - CT/CTA/MRI are unremarkable less concerning for TIA/CVA, Echo June 2018 EF 55 -60% with no PFO (2) Asthma Current Visit: No Status: Acute Code(s): J45.909 - UNSPECIFIED ASTHMA, UNCOMPLICATED SNOMED Code(s): 185996655 Comment: - Continue home albuterol, dulera (3) Intellectual disability Current Visit: Yes Status: Acute Code(s): F79 - UNSPECIFIED INTELLECTUAL DISABILITIES SNOMED Code(s): 010515529 Comment: - Limits HPI, discussed with her outpatient mental health team, they feel she is safe for discharge (4) Diabetes Current Visit: No Status: Acute Code(s): E11.9 - TYPE 2 DIABETES MELLITUS WITHOUT COMPLICATIONS SNOMED Code(s): 70222038 Comment: - Home Lantus, Metformin (5) Hypothyroidism Current Visit: No Status: Acute Code(s): E03.9 - HYPOTHYROIDISM, UNSPECIFIED SNOMED Code(s): 15314677 Comment: - Continue synthroid (6) Schizoaffective disorder, depressive type Current Visit: No Status: Acute Code(s): F25.1 - SCHIZOAFFECTIVE DISORDER, DEPRESSIVE TYPE SNOMED Code(s): 60770263 Comment: - Continue home clozapine, lithium, topamax, prozac, temazepam , latuda - Appreciate dose change request by Neuro, Tpirimate from 100mg BID to 100mg QAM and 50mg QHS on 09/21 - [place] levels subtherapeutic on admission - Needs psychiatry to comment on polypahrmacy, I have called her outpt office and informed them of Topirimate change, she has a follow up appt on 09/23 (7) DNR (do not resuscitate) Current Visit: No Status: Acute Comment: -Patient is DNR, reviewed her signed MOLST (8) DVT prophylaxis Current Visit: No Status: Acute Priority: Medium Code(s): EWC7782 - SNOMED Code(s): 418083937 Status and Disposition: PT to comment on her further ability to be d/c to home, medically she is cleared , anticipate d/c either today or tomorrow
[2018-09-21 11:38] LABS: ABS Eosinophils 0.1 10^3/ul (0-0.6); ABS Lymphocytes 0.6 10^3/ul (1.0-4.8); ABS Monocytes 0.3 10^3/ul (0-0.8); ABS Neutrophils 3.5 10^3/ul (1.5-7.7); Hematocrit 40 % (35-47); Hemoglobin 13.3 g/dL (12.0-16.0); Lymphocyte % 13.7 %; Mean Corpuscular HGB Conc 34 g/dL (31-36); Mean Corpuscular Hemoglobin 30 pg (27-31); Mean Corpuscular Volume 88 fL (80-97); Mean Platelet Volume 8.7 fL (7.4-10.4); Platelet Count 150 10^3/uL (150-450); Red Blood Count 4.48 10^6 /uL (3.70-4.87); Red Cell Distribution Width 15 % (10-15); White Blood Count 4.5 10^3/uL (3.5-10.8)
[2018-09-21 11:53] LABS: BUN/Creatinine Ratio 12.6 (8-20); Calcium 9.8 mg/dL (8.6-10.3); EGFR African American 67.3 (>60); EGFR Non-African American 55.6 (>60); Potassium 3.7 mmol/L (3.5-5.0)
[2018-09-21 12:09] LABS: TSH (Thyroid Stimulating Horm) 0.54 mcIU/mL (0.34-5.60)
[2018-09-21 16:24] VITALS: BP 110/73
[2018-09-21] MEDS ORDERED: Topiramate TAB(*) 25 MG PO SCH (21:00)
--- NOTE | 2018-09-22 01:07 | DS ---
CC: Dr. Jason Bianchi; Dr. Holcomb * DISCHARGE SUMMARY: DATE OF ADMISSION: 09/20/18 DATE OF DISCHARGE: 09/21/18 PRIMARY CARE PROVIDER: Dr. Jason Bianchi. PRIMARY PSYCHIATRIST: Dr. Holcomb, [facility]. CONSULTATIONS DURING THIS HOSPITALIZATION: Include Neurology. DISPOSITION AT DISCHARGE: Stable, to home. PRIMARY DIAGNOSES: 1. Dysarthria. 2. Altered mental status. 3. Polypharmacy. SECONDARY DIAGNOSES: 1. Schizoaffective disorder. 2. Intellectual disability. 3. Asthma. 4. Insulin dependent diabetes. MEDICATIONS ON DISCHARGE: 1. Clopidogrel 75 mg p.o. daily. 2. Albuterol 2 puffs inhaled q.4 hours p.r.n. 3. Budesonide 2 puffs inhaled b.i.d. 4. Clozapine 300 mg p.o. q.h.s. 5. Cyclobenzaprine 10 mg p.o. t.i.d., p.r.n. for pain. 6. Fluoxetine 40 mg p.o. q.a.m. 7. Fluticasone spray 2 sprays to both nares daily p.r.n. 8. Insulin glargine 20 units subcutaneous daily. 9. Levothyroxine 88 mcg p.o. daily. 10. [place] 900 mg p.o. q.h.s. 11. Lurasidone 80 mg p.o. q.p.m. 12. Metformin 1000 mg p.o. b.i.d. 13. Multivitamin 1 tab p.o. daily. 14. Pantoprazole 40 mg p.o. daily. 15. Rosuvastatin 5 mg p.o. daily. 16. Temazepam 15 mg p.o. q.h.s. 17. Topamax 100 mg p.o. q.a.m., 50 mg p.o. q.h.s. Medications changes on this hospitalization include dose lowering of topiramate from 100 mg p.o. b.i.d. to 100 mg p.o. q.a.m., and 50 mg p.o. q.h.s. ; as well as the addition of clopidogrel 75 mg p.o. daily. HISTORY OF PRESENT ILLNESS AND HOSPITAL COURSE: This is a 53-year-old female with a past medical history of schizoaffective disorder, intellectual disability , asthma, insulin dependent diabetes, who presented to the emergency room on via ambulance, at the request of her roommate, stating that she thought that the patient was having slurred speech and that she wanted her blood sugar checked. Furthermore, Sushma, who is Erin's roommate, says that Erin can no longer take care of herself although the patient adamantly disagrees with this. On arrival, the patient said that she feels fine and feels like herself and the patient herself believes that she is here because she hurt her left foot. Multiple attempts to reach the patient's son and roommate, Sushma, were done, although they were unable to be contacted. In the emergency department, a CT head was unremarkable. Her lithium level was found to be undetectable and the workup was otherwise unremarkable. She was admitted for observation given report of slurred speech. Of note, this is the second admission for slurred speech in the past couple of months with unremarkable workup from Neurology as of June 2018. Her hospital course by problem list is as follows: 1. Reported dysarthria: There is no clear reproducible exam and her CT head and CTA were unremarkable, as well as an MRI that was ultimately ordered. Neurology felt that this is possibly likely due to polypharmacy and requested that Topamax be dose reduced by 50 mg per week until 50 mg b.i.d. was reached and further changes could be made by mental health team. The mental health team was contacted who made appointment for followup on 09/23/18 for medication review and post-hospital followup. Of note, she did have an echocardiogram in June 2018, which showed an ejection fraction of 55% to 60%, with no PFO, and a negative bubble study with no visualized clot. She was monitored on telemetry, which was normal sinus rhythm. Neurology did say that it was reasonable to continue Plavix given second episode with no reproducible symptoms, cannot definitively rule out TIA, even though MRI and CTA are normal, which strongly suggests no ischemic component in her temporary neurologic symptoms that were not witnessed by these providers. 2. Bipolar and schizoaffective disorder: Again mental health team was contacted, who made a followup. She does have some component of polypharmacy. Her lithium level was not detectable which brings into question her ability to manage medications safely at home. VNS services were ordered for the patient, which she ultimately accepted. 3. Type 2 diabetes: We continued her home insulin regimen along with metformin. 4. Hypothyroidism: We did check TSH, which was 0.54. 5. Asthma: We continued her home albuterol and Dulera. 6. Functional capacity: The patient does have, what appears to be, a mild intellectual disability, although follows with Psychiatry and is engaged in groups and appears to have ability to make decisions for herself. Again, multiple times to contact the son as well as roommate were done. PT did see the patient who felt that she was able to ambulate safely and at baseline. Erin herself felt that she was back to baseline and was eager to be discharged to home. On day of discharge, the patient was ambulating, tolerating diet, understood dose reduction and medications and was discharged back to home with close followup with mental health team. LABS AND STUDIES DONE DURING THIS HOSPITALIZATION: Imaging including a brain MRI, head CTA, and brain CT were done, which were unremarkable. A chest x-ray was done which showed no acute intracranial process. EKG was done which showed normal sinus rhythm. Labs on day of discharge were normal with chemistry showing sodium 141, potassium 3.7, chloride 115, carbon dioxide 17, BUN 13, creatinine 1.03, glucose 181, vitamin B12 of 957, and TSH 0.54. CBC was fully unremarkable. PHYSICAL EXAMINATION: On the day of discharge, the patient has fluent speech, although perhaps mild lisp. She is a guarded historian, but A and O x3. 5/5 strength in all 4 limbs. No scleral icterus. Pupils are equal and reactive. Lungs are clear to auscultation. Cardiovascular: Regular rate and rhythm, no murmurs, rubs or gallops. Abdomen: Belly is soft, nontender, and nondistended. Lymphatic: Shows no adenopathy. Extremities: Show no edema. The patient is edentulous and has more of a lisp without her dentures. ITEMS TO FOLLOW UP ON STATUS POST DISCHARGE: 1. Polypharmacy: I have made a concerted effort to reach out to the patient's mental health team who can possibly review polypharmacy. 2. Capacity to care for herself at home: There is no clear threat to patient at this time given she feels she is at baseline and has engaged in groups. There was some question of medication nonadherence given nondetectable lithium levels with lithium dose of 900 mg q.h.s. We did request VNS services for pill pours, which she reluctantly, but ultimately accepted. 3. Topamax dose: Dose reduced by 50 mg and Neurology, who left consultation recommended further dose reduction of Topamax from 50 mg per week until 50 mg b.i.d. dosing was reached. TIME SPENT: Forty-five minutes were spent on planning this discharge with over half of that spent directly at the bedside with the patient, providing direct patient care. Plan of care was discussed with the patient who agreed with plan and was eager to be discharged, able to be discharged via Medicaid cab and was able ambulate safely on her own. Medication changes were explained to her. We have arranged for followup with her mental health team for further medications evaluation. If there are any questions about the care of this patient during this hospitalization, please do not hesitate to reach out and contact us. [id number]/[facility] #: [id number] DAVION
[2018-09-22] MEDS ORDERED: Topiramate TAB(*) 100 MG PO SCH (09:00)
== END 2018-09-21 18:38 | disposition home or self-care (01) ==
LOC: ED 02:13 → MEDTELE 08:24
PROVIDERS: ADMIT Internal Medicine; ATTEND Internal Medicine
DX: R47.1 Dysarthria and anarthria (principal); R41.82 Altered mental status, unspecified; J45.909 Unspecified asthma, uncomplicated; Z79.899 Other long term (current) drug therapy; F79 Unspecified intellectual disabilities; E11.9 Type 2 diabetes mellitus without complications; F25.1 Schizoaffective disorder, depressive type; Z79.4 Long term (current) use of insulin; E03.9 Hypothyroidism, unspecified; Z88.6 Allergy status to analgesic agent; Z88.0 Allergy status to penicillin; Z86.73 Personal history of transient ischemic attack (TIA), and cerebral infarction without residual deficits; E66.9 Obesity, unspecified; Z66 Do not resuscitate
CPT/HCPCS: 36415; 70450; 70496; 70498; 70551; 71045; 80048; 80053; 80061; 80178; 81003; 82607; 82803; 83605; 84443; 84484; 85025; 85610; 85730; 93005; 96372; 96374; 99285; A9270-GY; G0378; G8978-GP-CK; G8979-GP-CI; J1650; J2310; Q9967

== ENCOUNTER 2018-10-23 02:48 | Emergency (ER) | payer MEDICARE, MEDICAID ==
--- NOTE | 2018-10-23 03:02 | ED ---
HPI Diabetic - HPI Summary HPI Summary: This pt is a 53 y/o female, with hx of type 2 DM, presenting to [facility] c/o low blood sugar today. Pt reports she has been having a "massive migraine" for 1 week now. She describes a throbbing pain with associated symptoms of vomiting and blurry vision. She notes 4 episodes of emesis since 22:30 on 10/22/18. Pt states she has had chest pain since 22:30 on 10/22/18. Pt reports blood glucose of 37 at 23:00 on 10/22/18 and blood glucose of 77 at 02:15 today. Pt notes she ate "massive amount of sugar" from 23:00 on 10/22 to 02:30 today due to low glucose level, including a cinnamon roll, a big spoon of black monson jelly, and cookies. Pt takes lantus 20 units at bedtime, and today she took it on 10/22 at around 22: 00. She also takes metformin. Last week pt reports blood glucose of 499 and 512. - History Of Current Complaint Chief Complaint: EDDiabeticProb Hx Obtained From: Patient Hx Last Menstrual Period: april 29 Onset/Duration: Lasting Hours, Still Present Timing: Hours Severity Currently: Moderate Character: Alert, Other - vomiting Aggravating: Nothing Alleviating: Nothing Associated Signs & Symptoms: Nausea, Vomiting Related History: Compliant, DM II - Allergies/Home Medications Allergies/Adverse Reactions: Allergies Allergy/AdvReac Type Severity Reaction Status Date / Time aspirin Allergy Unknown Verified 10/23/18 02:54 Reaction Details Cephalosporins Allergy Rash Verified 10/23/18 02:54 orange Allergy Swelling Verified 10/23/18 02:54 orange juice Allergy Swelling Verified 10/23/18 02:54 amoxicillin AdvReac Nausea And Verified 10/23/18 02:54 Vomiting Tetracyclines AdvReac Nausea And Verified 10/23/18 02:54 Vomiting PMH/Surg Hx/FS Hx/Imm Hx Endocrine/Hematology History: Reports: Hx Diabetes, Hx Thyroid Disease Denies: Hx Anticoagulant Therapy Cardiovascular History: Reports: Hx Deep Vein Thrombosis, Hx Hypercholesterolemia Denies: Hx Congestive Heart Failure, Hx Hypertension, Hx Myocardial Infarction, Hx Pacemaker/ICD Respiratory History: Reports: Hx Asthma Denies: Hx Chronic Obstructive Pulmonary Disease (COPD), Hx Lung Cancer, Hx Pneumonia, Hx Pulmonary Embolism GI History: Reports: Hx Ulcer History: Denies: Hx Dialysis, Hx Renal Disease Sensory History: Denies: Hx Contacts or Glasses, Hx Hearing Aid Opthamlomology History: Denies: Hx Contacts or Glasses Neurological History: Denies: Hx Dementia, Hx Migraine, Hx Seizures, Hx Transient Ischemic Attacks (TIA) Psychiatric History: Reports: Hx Inpatient Treatment, Hx Community Mental Health Tx, Hx Schizophrenia, Hx Suicide Attempt Denies: Hx Anxiety, Hx Eating Disorder, Hx Depression, Hx Panic Disorder, Hx Bipolar Disorder, Hx of Violent Episodes Against Others - Cancer History Hx Chemotherapy: No Hx Radiation Therapy: No - Surgical History Surgery Procedure, Year, and Place: tubal ligation 1985 Infectious Disease History: No Infectious Disease History: Denies: Hx Hepatitis, Hx Human Immunodeficiency Virus (HIV), Traveled Outside the [place] in Last 30 Days - Family History Known Family History: Positive: Cardiac Disease, Hypertension, Diabetes - Social History Alcohol Use: None Hx Substance Use: No Substance Use Type: Reports: None Hx Tobacco Use: No Smoking Status (MU): Never Smoked Tobacco Amount Used/How Often: states that she smoked one cigarette when she was 16 yrs. old Have You Smoked in the Last Year: No Review of Systems Negative: Fever Positive: Blurred Vision Positive: Chest Pain Positive: Vomiting, Nausea Positive: Headache All Other Systems Reviewed And Are Negative: Yes Physical Exam - Summary Physical Exam Summary: Appearance: Well-appearing, Well-nourished, lying in bed comfortably Skin: Warm, dry, no obvious rash Eyes: sclera anicteric, no conjunctival pallor ENT: mucous membranes moist, pharynx appears normal Neck: Supple, nontender Respiratory: Clear to auscultation, no signs of respiratory distress Cardiovascular: Normal S1, S2. No murmurs. Normal distal pulses in tibial and radial bilaterally. Abdomen: Soft, nontender, normal active bowel sounds present Musculoskeletal: Normal, Strength/ROM Intact Neurological: A&Ox3, awake and alert, mentation is normal, speech is fluent and appropriate Psychiatric: affect is normal, does not appear anxious or depressed Triage Information Reviewed: Yes Vital Signs On Initial Exam: Initial Vitals Temp Pulse Resp BP Pulse Ox 97.9 F 73 16 145/73 99 10/23/18 02:50 10/23/18 02:50 10/23/18 02:50 10/23/18 02:50 10/23/18 02:50 Vital Signs Reviewed: Yes Diagnostics - Vital Signs Vital Signs Temp Pulse Resp BP Pulse Ox 10/23/18 02:50 97.9 F 73 16 145/73 99 - Laboratory Result Diagrams: 10/23/18 03:23 10/23/18 03:23 Lab Statement: Any lab studies that have been ordered have been reviewed, and results considered in the medical decision making process. - EKG 03:40 Cardiac Rate: NL - at 72 bpm EKG Rhythm: Sinus Rhythm Summary of EKG Findings: Sinus rhythm at 72 bpm. Ventricular premature complex. Diabetic Course/Dx - Course Assessment/Plan: Pt is a 53 y/o female, with hx of type 2 DM, presenting to [facility] c/o low blood sugar today. Pt reports she has been having a "massive migraine" for 1 week now. She describes a throbbing pain with associated symptoms of vomiting and blurry vision. She notes emesis x4. Additionally states she has chest pain. POC glucose of 191. Lab results unremarkable except for glucose of 209. Urinalysis shows 1+ glucose. Second blood glucose level is 182. Third blood glucose level is 186. In the ED course the pt was given IV fluids, Decadron, Benadryl, Toradol, Compazine. Pt will be discharged home with follow up from her PCP on Thursday. - Diagnoses Provider Diagnoses: Hypoglycemia Discharge - Sign-Out/Discharge Documenting (check all that apply): Patient Departure - Discharge home Patient Received Moderate/Deep Sedation with Procedure: No - Discharge Plan Condition: Good Disposition: HOME Patient Education Materials: Hypoglycemia in a Person with Diabetes (ED) Referrals: Jason Bianchi MD [Primary Care Provider] - 2 Days Additional Instructions: Your BS has been fine, in fact somewhat high, while being here monitored. I would wonder if your machine's calibration is off. Check in with your doctor on Thursday and see if they can check the BS in the office, and bring your machine to see if the readings match. - Billing Disposition and Condition Condition: GOOD Disposition: Home - Attestation Statements Document Initiated by Scribe: Yes Documenting Scribe: Farzaneh Rodriguez Provider For Whom Scribe is Documenting (Include Credential): Jose Husain MD Scribe Attestation: I, Farzaneh Rodriguez, scribed for Jose Husain MD on 10/24/18 at 0216. Scribe Documentation Reviewed: Yes Provider Attestation: The documentation as recorded by the scribe, Farzaneh Rodriguez accurately reflects the service I personally performed and the decisions made by me, Jose Husain MD Status of Dawit Document: Viewed
[2018-10-23] MEDS ORDERED: PROCHLORPERAZINE INJ 5 MG/ML 2 ML VIAL IV ONE (03:04)
[2018-10-23] MEDS ORDERED: NS 0.9% 1000 ML** 2,000 ML IV ONE (03:04)
[2018-10-23] MEDS ORDERED: Dexamethasone IV* 4 MG/ML 1 ML (4 MG) PO ONE (03:04)
[2018-10-23] MEDS ORDERED: Ketorolac INJ* 30 MG/ML 1 ML VIAL IV PUSH ONE (03:04)
[2018-10-23] MEDS ORDERED: diPHENhydraMINE IV* 50 MG/ML 1 ml VIAL (BENADRYL) IV ONE (03:04)
[2018-10-23 03:30] LABS: ABS Basophils 0.1 10^3/ul (0-0.2); ABS Eosinophils 0.1 10^3/ul (0-0.6); ABS Lymphocytes 1.1 10^3/ul (1.0-4.8); ABS Monocytes 0.6 10^3/ul (0-0.8); ABS Neutrophils 6.6 10^3/ul (1.5-7.7); Eosinophil % 0.7 %; Hematocrit 38 % (35-47); Hemoglobin 12.9 g/dL (12.0-16.0); Lymphocyte % 13.7 %; Mean Corpuscular HGB Conc 34 g/dL (31-36); Mean Corpuscular Hemoglobin 30 pg (27-31); Mean Corpuscular Volume 87 fL (80-97); Platelet Count 195 10^3/uL (150-450); Red Blood Count 4.35 10^6 /uL (3.70-4.87); Red Cell Distribution Width 16 % (10-15); White Blood Count 8.4 10^3/uL (3.5-10.8)
[2018-10-23 03:48] LABS: Albumin 4.1 g/dL (3.2-5.2); Albumin/Globulin Ratio 1.6 (1-3); BUN/Creatinine Ratio 19.4 (8-20); EGFR African American 71.3 (>60); EGFR Non-African American 58.9 (>60); Globulin 2.5 g/dL (2-4); Potassium 3.9 mmol/L (3.5-5.0); Total Bilirubin 0.4 mg/dL (0.2-1.0); Total Protein 6.6 g/dL (6.4-8.9)
[2018-10-23 04:36] LABS: Troponin I 0.01 ng/mL (<0.04)
[2018-10-23 05:46] LABS: Urine Appearance Clear; Urine Bilirubin Negative (Negative); Urine Blood Negative (Negative); Urine Color Amber; Urine Glucose 1+(50 mg/dL) (Negative); Urine Ketones Negative (Negative); Urine Nitrite Negative (Negative); Urine Protein Negative (Negative); Urine Urobilinogen Negative (Negative)
[2018-10-23 06:17] VITALS: BP 131/83
== END 2018-10-23 06:15 | disposition home or self-care (01) ==
LOC: ED 02:48
DX: E11.649 Type 2 diabetes mellitus with hypoglycemia without coma (principal); R11.2 Nausea with vomiting, unspecified; R51 Headache; Z88.6 Allergy status to analgesic agent; Z88.1 Allergy status to other antibiotic agents; Z88.0 Allergy status to penicillin; Z91.018 Allergy to other foods
CPT/HCPCS: 36415; 80053; 81003; 84484; 85025; 93005; 96361; 96374; 96375; 99283; J0780; J1100; J1200; J1885

== ENCOUNTER 2018-11-09 09:01 | Inpatient (IN) | payer MEDICARE, MEDICAID ==
[2018-11-09] MEDS ORDERED: NS 0.9% 1000 ML** 1,000 ML IV ONE (09:04)
--- NOTE | 2018-11-09 09:11 | ED ---
Neurological HPI - HPI Summary HPI Summary: Rose andersen called at 0850 with 5 minutes ETA. Arrival at 0859. Time seen by provider: 0859. Dr. Bee, neurology, in ED upon patients arrival. The patient is a 53 y/o F arriving by ambulance to [facility] with a chief complaint of left-sided deficits noticed this morning when waking up at 0700 with last well known last night. She is experiencing slurred speech, pain in the right arm , and generalized weakness. It is also reported that she has a left facial droop , left UE weakness. EMS reports that the patients roommate thought she had low blood glucose with hx of DM, but EMS measured 170. She additionally c/o headache and burning in the eyes. She denies any nausea, vomiting, or SOB. Denies chest pain, fever, chills, rash. Deficits still present in the ED. She hasn't taken her medications today. Patient's medications reviewed this visit. Patient to CT at 0903. - History of Current Complaint Stated Complaint: POSS STROKE PER EMS Time Seen by Provider: 11/09/18 09:02 Hx Obtained From: Patient, EMS Hx Last Menstrual Period: april 29 Onset/Duration: Started hours ago - 0700, Still Present Timing: Constant Onset Severity: Moderate Current Severity: Moderate Neurological Deficit Location: Facial - left droop Pain Intensity: 0 Pain Scale Used: 0-10 Numeric Character: Weak - generalized, Impaired Speech - slurred Aggravating: Unknown Alleviating: Unknown Associated Signs and Symptoms: Positive: Headache, Weakness - generalized, Pain - in right arm, Impaired Speech - slurred. Negative: Nausea/Vomiting, Shortness of Breath TPA Considered: No - patient on Plavix - Additional Pertinent History Primary Care Physician: [id number] - Allergy/Home Medications Allergies/Adverse Reactions: Allergies Allergy/AdvReac Type Severity Reaction Status Date / Time aspirin Allergy Unknown Verified 10/23/18 02:54 Reaction Details Cephalosporins Allergy Rash Verified 10/23/18 02:54 orange Allergy Swelling Verified 10/23/18 02:54 orange juice Allergy Swelling Verified 10/23/18 02:54 amoxicillin AdvReac Nausea And Verified 10/23/18 02:54 Vomiting Tetracyclines AdvReac Nausea And Verified 10/23/18 02:54 Vomiting Home Medications: Home Medications diphenhydrAMINE HCl [Diphenhydramine HCl] 25 mg PO DAILY PRN 11/09/18 [History Confirmed 11/09/18] traMADol TAB* [Ultram*] 50 mg PO Q6HR PRN 11/09/18 [History Confirmed 11/09/18] PMH/Surg Hx/FS Hx/Imm Hx Previously Healthy: No Endocrine/Hematology History: Reports: Hx Diabetes, Hx Thyroid Disease Denies: Hx Anticoagulant Therapy Cardiovascular History: Reports: Hx Deep Vein Thrombosis, Hx Hypercholesterolemia Denies: Hx Congestive Heart Failure, Hx Hypertension, Hx Myocardial Infarction, Hx Pacemaker/ICD Respiratory History: Reports: Hx Asthma Denies: Hx Chronic Obstructive Pulmonary Disease (COPD), Hx Lung Cancer, Hx Pneumonia, Hx Pulmonary Embolism GI History: Reports: Hx Ulcer History: Denies: Hx Dialysis, Hx Renal Disease Sensory History: Denies: Hx Contacts or Glasses, Hx Hearing Aid Opthamlomology History: Denies: Hx Contacts or Glasses Neurological History: Denies: Hx Dementia, Hx Migraine, Hx Seizures, Hx Transient Ischemic Attacks (TIA) Psychiatric History: Reports: Hx Inpatient Treatment, Hx Community Mental Health Tx, Hx Schizophrenia, Hx Suicide Attempt Denies: Hx Anxiety, Hx Eating Disorder, Hx Depression, Hx Panic Disorder, Hx Bipolar Disorder, Hx of Violent Episodes Against Others - Cancer History Hx Chemotherapy: No Hx Radiation Therapy: No - Surgical History Surgery Procedure, Year, and Place: tubal ligation 1985 Infectious Disease History: Denies: Hx Hepatitis, Hx Human Immunodeficiency Virus (HIV) - Family History Known Family History: Positive: Cardiac Disease, Hypertension, Diabetes - Social History Occupation: Unemployed, Disabled Lives: Dormitory/Roommates Alcohol Use: None Hx Substance Use: No Substance Use Type: Reports: None Hx Tobacco Use: No Smoking Status (MU): Never Smoked Tobacco Amount Used/How Often: states that she smoked one cigarette when she was 16 yrs. old Have You Smoked in the Last Year: No Review of Systems Constitutional: Negative Eyes: Negative Positive: Other - burning sensation in eyes Negative: Shortness Of Breath Negative: Vomiting, Nausea Positive: Other - right arm pain Neurological: Other - left facial droop Positive: Headache, Weakness - generalized, Slurred Speech All Other Systems Reviewed And Are Negative: Yes Physical Exam - Summary Physical Exam Summary: Vital Signs Reviewed: Yes Alert and oriented, slurred speech, repeat questions related to mild confusion to questions asked Eyes: Conjunctiva Clear, DEV. 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 - Radiology CXR Radiology Interpretation Completed By: Radiologist Summary of Radiographic Findings: Impression: 1. Suboptimal inspiration and mild bibasilar atelectasis. ED physician has reviewed this radiology report. - CT Brain CT CT Interpretation Completed By: Radiologist Summary of CT Findings: Impression: No acute intracranial pathology. ED physician has reviewed this radiology report. - EKG 0927 Cardiac Rate: NL - 76 bpm EKG Rhythm: Sinus Rhythm Summary of EKG Findings: NSR at 76 bpm. Slightly prolonged QT interval. No acute ST or T-wave changes. No STEMI. 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 Non-Paretic Hand: Both Correctly Best Gaze (Only Horizontal Eye Movement): Normal Facial Paresis-Pt to Smile & Close Eyes or Grimace Symmetry: Partial Paralysis Motor Function - Right Arm: Drifts LT 10 seconds Motor Function - Left Arm: No Drift-Holds 10 Seconds Motor Function - Right Leg: No Drift-Holds 10 Seconds Motor Function - Left Leg: No Drift-Holds 10 Seconds Limb Ataxia-Must be out of Proportion to Weakness Present: Absent Sensory (Use Pinprick to Test Arms/Legs/Trunk/Face): Normal Best Language (Describe Picture, Name Items): No Aphasia Dysarthria (Read Several Words): Slurs Some Words Extinction and Inattention: No Abnormality Re-Evaluation - Re-Evaluation First Eval Re-Evaluation Time: 11:45 Comment: Patient c/o RIOS and burning in eyes. NIH reassess. facial droop resolved. strength resolved. pt with continued slight slurred speech - pt without teeth - unclear if baseline. d/w Dr. Weiner- accepting pt Course/Dx - Course Course Of Treatment: Patient presents to urgent care as a code siddhartha called by EMS. Patient's 53-year-old woman with a history of schizoaffective disorder as well as diabetes. Patient woke this morning with slurred speech left facial droop left arm weakness. Patient was slow to form words but was appropriate seems somewhat confused. Rose carl was called from the field. Dr. Bee was present throughout the evaluation. CT showed no acute process. Dr. Bee reviewed patient's records from previous admissions that has presented similar. Patient is on Plavix. Request the patient can aspirin patient has an allergy to aspirin was not given. We'll give Plavix after swallowing evaluation per Dr. Bee request patient be admitted to the hospitalist for TIA an inpatient MRI. - Diagnoses Provider Diagnoses: TIA (transient ischemic attack) During the Visit The Following Alert/Code Occurred: Rose Jamie - called at 0850 with 5 minutes ETA - Physician Notifications Discussed Care Of Patient With: Latoya Weiner - hospitalist Time Discussed With Above Provider: 11:20 Instructed by Provider To: Other - Dr. Weiner accepts the patient for admission. Dr. Bee, neurology, consulted for the patient and states that she has likely history of TIAs on the right side but symptoms are currently present on the left. Discharge - Sign-Out/Discharge Documenting (check all that apply): Patient Departure - Patient is accepted for admission by Dr. Weiner. Patient Received Moderate/Deep Sedation with Procedure: No - Discharge Plan Condition: Stable Disposition: ADMITTED TO [facility] Referrals: Jason Bianchi MD [Primary Care Provider] - - Billing Disposition and Condition Condition: STABLE Disposition: Admitted to [facility] - Attestation Statements Document Initiated by Scribe: Yes Documenting Scribe: Citlali Carreon Provider For Whom Scribe is Documenting (Include Credential): Dr. Jyoti Valdivia MD Scribe Attestation: Citlali Mesa scribed for Dr. Jyoti Valdivia MD on 11/09/18 at 1458. Scribe Documentation Reviewed: Yes Provider Attestation: The documentation as recorded by the scribe, Citlali Carreon accurately reflects the service I personally performed and the decisions made by me, Dr. Jyoti Valdivia MD Status of Scribe Document: Viewed
[2018-11-09 10:59] LABS: ABS Lymphocytes 0.9 10^3/ul (1.0-4.8); ABS Monocytes 0.3 10^3/ul (0-0.8); ABS Neutrophils 2.9 10^3/ul (1.5-7.7); Hematocrit 41 % (35-47); Hemoglobin 13.9 g/dL (12.0-16.0); Lymphocyte % 21.7 %; Mean Corpuscular HGB Conc 34 g/dL (31-36); Mean Corpuscular Hemoglobin 30 pg (27-31); Mean Corpuscular Volume 88 fL (80-97); Mean Platelet Volume 8.2 fL (7.4-10.4); Platelet Count 135 10^3/uL (150-450); Red Blood Count 4.63 10^6 /uL (3.70-4.87); Red Cell Distribution Width 15 % (10-15); White Blood Count 4.1 10^3/uL (3.5-10.8)
[2018-11-09 11:12] LABS: Activated Partial Thrombo Time 34.4 seconds (26.0-38.0); INR 1.01 (0.82-1.09)
[2018-11-09 11:30] LABS: ALT 16 U/L (7-52); AST 14 U/L (13-39); Albumin 4.5 g/dL (3.2-5.2); Alkaline Phosphatase 86 U/L (34-104); BUN/Creatinine Ratio 19.1 (8-20); Blood Urea Nitrogen 18 mg/dL (6-24); CO2 Carbon Dioxide 22 mmol/L (22-32); Calcium 9.8 mg/dL (8.6-10.3); Cholesterol 197 mg/dL; EGFR African American 74.8 (>60); EGFR Non-African American 61.8 (>60); Globulin 2.3 g/dL (2-4); Glucose 175 mg/dL (70-100); HDL Cholesterol 41.3 mg/dL; LDL Cholesterol 126 mg/dL; Potassium 3.8 mmol/L (3.5-5.0); Sodium 143 mmol/L (135-145); Total Protein 6.8 g/dL (6.4-8.9); Triglycerides 147 mg/dL
[2018-11-09 11:36] LABS: Anion Gap 9 mmol/L (2-11); Chloride 112 mmol/L (101-111)
[2018-11-09 12:54] LABS: Urine Appearance Clear; Urine Bacteria 1+ (Absent); Urine Bilirubin Negative (Negative); Urine Blood Negative (Negative); Urine Color Yellow; Urine Glucose Negative (Negative); Urine Ketones Trace (Negative); Urine Nitrite Positive (Negative); Urine Protein Negative (Negative); Urine Red Blood Cell Trace(0-2/hpf) (Absent); Urine Specific Gravity 1.005 (1.010-1.030); Urine Squamous Epithelial Cell Present (Absent); Urine Urobilinogen Negative (Negative); Urine White Blood Cell Trace(0-5/hpf) (Absent)
[2018-11-09] MEDS ORDERED: Aspirin 81 mg CHEW TAB* 81 MG TAB.CHEW PO ONE (14:21)
[2018-11-09] MEDS ORDERED: Albuterol HFA INHALER* 8 gm MDI INH PRN (14:22)
[2018-11-09] MEDS ORDERED: Dextrose 50% VIAL 50 ml IV PUSH PRN (14:29)
--- NOTE | 2018-11-09 18:20 | HP ---
CC: Jason Bianchi MD * HISTORY AND PHYSICAL: DATE OF ADMISSION: 11/09/18 PRIMARY CARE PROVIDER: Jason Bianchi MD ATTENDING PHYSICIAN: Latoya Weiner DO * (dictated by ARJUN Berg ). CHIEF COMPLAINT: Slurred speech. HISTORY OF PRESENT ILLNESS: Ms. Urban is a 53-year-old female with a past medical history of diabetes, hyperlipidemia, intellectual disability, and possible history of TIA who presented to the ER via ambulance with complaints of slurred speech. The patient is here and states "I think it is because my blood sugar." She presents with slurred speech. She has complaints of blurred vision times approximately 3 days, frequent headaches time approximately 1 week , and 2 months of "people don't understand me." She notes that her left arm feels weak, but denies any other symptoms of weakness or deficits elsewhere. She is noted to have an NIHSS score of 1. CT was performed in the ER and revealed no intracranial abnormality. The patient denies changes in hearing or lower extremity weakness. She denies chest pain, shortness of breath, abdominal pain, nausea, vomiting, diarrhea, constipation, cough, diaphoresis, fever. The patient is noted to have been here in June and August with similar complaints of slurred speech. She has had negative CVA workup. This presentation was likely a result of TIAs. The patient has been on Plavix since that time. She is allergic to ASPIRIN. At her last visit, it was questioned whether some symptoms are a result of polypharmacy. It was suggested that her mental health team review her medications. Also prior to discharge, her Topamax dose was suggested to decrease to 100 mg in the a.m., 50 mg in the p.m. with further dose reduction to 50 mg b.i.d. While in the emergency department, the patient received full workup including blood work that revealed a slightly low platelet count, a glucose of 175, and LDL of 126. Urinalysis reveals positive nitrites, trace LE. Hospitalist team was asked to evaluate the patient for admission. PAST MEDICAL HISTORY: 1. Diabetes mellitus. 2. Hyperlipidemia. 3. Hypothyroidism. 4. Asthma. 5. Intellectual disability. 6. Schizoaffective disorder. 7. History of possible TIA. 8. History of DVT. PAST SURGICAL HISTORY: Tubal ligation. HOME MEDICATIONS: 1. Albuterol inhalation powder 2 puffs inhalation q.4 hours p.r.n. 2. Symbicort 160/4.5 two puffs inhalation b.i.d. 3. Clopidogrel 75 mg p.o. daily. 4. Clozapine 300 mg p.o. at bedtime. 5. Diphenhydramine 25 mg p.o. daily p.r.n. congestion. 6. Fluoxetine 40 mg p.o. q.a.m. 7. Fluticasone 2 sprays to both nares daily. 8. Insulin glargine 20 units subcu daily. 9. Levothyroxine 88 mcg p.o. daily. 10. [place] carbonate 900 mg p.o. at bedtime. 11. Lurasidone 80 mg p.o. q.p.m. 12. Metformin 1000 mg p.o. b.i.d. 13. Multivitamin/minerals 1 tab p.o. daily 14. Rosuvastatin 5 mg p.o. daily. 15. Temazepam 15 mg p.o. at bedtime. 16. Topiramate 100 mg p.o. q.a.m. 17. Topiramate 50 mg p.o. at bedtime. 18. Tramadol 50 mg p.o. q.6 hours p.r.n. mild pain. DRUG ALLERGIES: ASPIRIN, syncope; CEPHALOSPORINS, rash; ORANGE and ORANGE JUICE , swelling; AMOXICILLIN, nausea and vomiting; TETRACYCLINES, nausea and vomiting. FAMILY HISTORY: Father at the age of 78 from [place]. Two sisters and father had diabetes mellitus. No family history of CVA or cancer. SOCIAL HISTORY: The patient does not and has never smoked. She has not used alcohol. She is currently unemployed. She lives with her roommate, Cindy. In the event that she is unable to make her own medical decisions, she has appointed her son, Michael Townsend, to be her surrogate decision maker. REVIEW OF SYSTEMS: A 10-point review of systems has been performed and all the pertinent positive and negatives are in the HPI. All other systems are negative. PHYSICAL EXAMINATION GENERAL: Ms. Urban is a well-developed, well-nourished, obese 53-year-old female who is lying in bed with the head of bed elevated. She does have a speech abnormality, but she is also noted to be edentulous and sounds as if that this is a cause of her speech concern at least at this point. She looks fatigued, but she is cooperative, appropriate, and talkative. VITAL SIGNS: Temperature 97.5 temporal, heart rate 71, respiratory rate 15, oxygen saturation 97% on room air, blood pressure 140/111. HEENT: PERRL. Visual desai are grossly intact. EOMI. Nonicteric sclerae. Hearing grossly intact. Oral mucous membranes are moist. The patient is edentulous. The pharynx is clear. Tongue is at midline. RESPIRATORY: Symmetrical chest expansion without use of accessory muscles. Lungs are clear to auscultation without rhonchi, wheezes, or rales. There is no digital clubbing or cyanosis. CARDIOVASCULAR: Regular rate and rhythm with S1, S2 present. There are no murmurs, rubs, clicks, or gallops. There is no JVD. Radial and pedal pulses are palpable. There is no peripheral edema. ABDOMEN: Bowel sounds noted in all quadrants. The abdomen is obese. Soft and tender to palpation. There is no hepatosplenomegaly. MUSCULOSKELETAL: Full range of motion without pain or deformities. NEUROLOGIC: The patient is awake. She is alert and oriented x3. Cranial nerves II through XII are grossly intact. She is able to move all of her extremities. She appears to have a generalized weakness in bilateral upper and lower extremities, but motor strength is 5/5 bilaterally and fluctuates with frequent examination. DIAGNOSTIC STUDIES/LABORATORY DATA: Platelet 135. Glucose 175. LDL 126. Urinalysis; positive nitrites, trace LE, 1+ bacteria. Brain CT, impression: No acute intracranial pathology. Chest x-ray, impression: Suboptimal inspiration and mild bibasilar atelectasis. EKG: Rate 76, normal sinus rhythm. No ST changes. ASSESSMENT AND PLAN: Ms. Urban is a 53-year-old female with past medical history of diabetes, hyperlipidemia, intellectual disability, and multiple visits for slurred speech in the last approximately 4 months who presented today with complaints of slurred speech, right arm weakness, headache, and blurred vision. She will be admitted to observation for: 1. Questionable transient ischemic attack. The patient presents today with slurred speech and right arm weakness. She has had at least 2 episodes of this in the past 4 months which have resulted in negative workup for cerebrovascular accident and conclusion of possible transient ischemic attack versus polypharmacy. An initial CT of the head revealed no acute intracranial abnormalities. MRI of the head has been ordered. Neurology has been consulted. They recommend one dose of ASPIRIN now, but the patient is unable to take ASPIRIN as it causes her to syncopize per her report. The patient will continue to take Plavix. We will perform neuro checks q.4 hours and await the results of the MRI. The patient has been admitted on telemetry. 2. Urinary tract infection. The patient has positive nitrites, trace leukocyte esterase, and bacteria in the urine. She has multiple allergies. She will be placed on Bactrim for her urinary tract infection. 3. Diabetes mellitus. Hold metformin. Continue the patient's home glargine. We will start lispro sliding scale with fingersticks a.c. 4. Hyperlipidemia. Continue statin. 5. Asthma. Continue Symbicort and ProAir. 6. Hypothyroidism. Continue levothyroxine. 7. Schizoaffective disorder. Continue home medications. 8. DVT prophylaxis. According to DVT Risk Assessment, the patient scores 2 placing her at moderate risk. She will be started on Lovenox. TIME SPENT: Approximately 60 minutes was spent on this admission, greater than half that time was spent with the patient obtaining history, performing physical , and reviewing the plan of care. The case has been reviewed with my attending, Dr. Weiner, who is in agreement with the plan of care. ARJUN BERG [id number]/[facility] #: [id number] DAVION
[2018-11-09] MEDS: traMADol TAB* 50 MG PO PRN (18:33)
[2018-11-09] MEDS: Enoxaparin(*) 40 MG/0.4 ML SYR SUBCUT SCH (18:36)
[2018-11-09] MEDS: Lurasidone(*) 80 MG TAB PO SCH (18:36)
[2018-11-09] MEDS: Insulin LISPRO* 1 UNITS UNIT SUBCUT SCH (18:37)
[2018-11-09] MEDS: Mometasone/Formoter 200/5 MDI INH SCH (19:35)
[2018-11-09] MEDS ORDERED: metFORMIN* 1,000 MG TAB PO SCH (21:00)
[2018-11-09] MEDS: Lithium Carbonate TAB* 300 MG PO SCH (21:16)
[2018-11-09] MEDS: Topiramate TAB(*) 25 MG PO SCH (21:16)
[2018-11-09] MEDS: Temazepam CAP* 15 MG PO SCH (21:17)
[2018-11-09] MEDS: CloZAPine TAB* 100 MG TAB PO SCH (21:17)
[2018-11-09] MEDS: Sulfamethox/Trimethoprim DS 800/160* TAB PO SCH (21:17)
--- NOTE | 2018-11-09 21:52 | CONS ---
CONSULTATION REPORT: DATE OF CONSULT: 11/09/18 PATIENT OF: Dr. Bianchi and Dr. Weiner. HISTORY OF PRESENT ILLNESS: This is a 53-year-old woman who presented at 9 o' clock to ER with a history that she gone to bed normal last night and woke up with slurred speech and a possible facial droop. There was some possible left- sided weakness as well. Of note, she has been to the ER in the past few months in August and June for this stroke-like symptoms. I had seen her on 11/07/18 and she had what looked to be a functional exam with some functional overlay. She was seen later in August with slurred speech as well, which was thought to be functional. Her MRI scans have been normal on the test and she came in at 9 o' clock. She had some slurred speech and that was her only point for an NIH stroke scale of 1. Rest of her exam was nonfocal and will be outlined below. PAST MEDICAL HISTORY: She has a past history of diabetes mellitus, hyperlipidemia, hypothyroidism, asthma, intellectual disability, schizoaffective disorder and a history of possible TIA, history of DVT. MEDICATIONS: At home included: 1. Albuterol inhaler powder 2 puffs p.r.n. 2. Symbicort 2 puffs b.i.d. 3. Plavix 75 mg daily. 4. Clozapine 300 mg at bedtime. 5. Diphenhydramine 25 mg daily. 6. Fluoxetine 40 mg q.a.m. 7. Fluticasone 2 sprays to both nares daily. 8. Insulin 20 units subcu daily. 9. Levothyroxine 88 mcg daily. 10. [place] carbonate 900 mg at bedtime. 11. Lurasidone 80 mg q.p.m. 12. Metformin 1000 mg b.i.d. 13. Rosuvastatin 5 mg daily. 14. Temazepam 15 mg at bedtime. 15. Topamax 100 mg q.a.m., 50 mg at bedtime. 16. Tramadol 50 mg q.6 hours p.r.n. pain. ALLERGIES: She is allergic to ASPIRIN, CEPHALOSPORINS, orange and orange juice , AMOXICILLIN, and TETRACYCLINE. FAMILY HISTORY: Father at age 78 of heart attack. Two sisters and father had diabetes. SOCIAL HISTORY: She does not smoke, use alcohol and she lives with her roommate. REVIEW OF SYSTEMS: Negative in 14 spheres other than HPI. PHYSICAL EXAM: Temperature 97.5, pulse was 84, respirations 16, blood pressure 132/86. She was alert and oriented with normal speech, comprehension. NIH stroke scale was 1 for slurred speech at time of presentation to er. Exam of cranial nerves did not reflect any visual field deficits or facial asymmetries. Sensation was intact to her face as well as trunk. Motor exam revealed normal tone and strength. Both arms are sort of drifted, but at other times steady. No pronator drift in legs. Reflexes were 1 and equal with downgoing toes. Chest: Clear. Cardiovascular: Regular rate and rhythm. Abdomen soft with positive bowel sounds. Vivian is a difficult case since she has significant risk factors for stroke and also has some significant psychological issues. My sense when I saw her with that, this most likely is not a stroke and if this was a stroke, it was small and did not need a clot retrieval and the deficit was too small to consider giving tPA. Therefore, we did not get an MRI scan immediately. Her MRI scan that followed later was within normal limits. DIAGNOSTIC STUDIES/LAB DATA: Her labs included normal CBC other than a platelet count of 135, normal INR, PTT, normal CMP other than a glucose of 175. LDL was 126. UA positive for nitrites. She has had prior CTAs and echos. Her last CTA done on 09/20/18 showed mild narrowing in the right internal carotid and is otherwise negative. Her echo done in June, had negative bubble study, no source of clot. So, it is likely that Erin had no stroke or ischemic disease at this time, but it is hard to be sure Therefore, she is being admitted for overnight observation given her risk factors. She will be continued on the aspirin. Her statins should be adjusted with a target of 70 assuming that some of her many events may have had an ischemic component to them. Dr. Ruggiero will be following as needed. Thank you for sharing her case. [id number]/[facility] #: [id number] DAVION
[2018-11-10] MEDS: Levothyroxine TAB* 88 MCG TAB PO SCH (05:43)
[2018-11-10] MEDS: Mometasone/Formoter 200/5 MDI INH SCH ×2 (07:59→19:32)
[2018-11-10] MEDS: Insulin LISPRO* 1 UNITS UNIT SUBCUT SCH ×3 (08:43→17:02)
[2018-11-10] MEDS: Insulin GLARGINE(*) 1 UNITS UNIT SUBCUT SCH (08:43)
[2018-11-10] MEDS: FLUoxetine CAP* 20 MG PO SCH (08:45)
[2018-11-10] MEDS: Clopidogrel TAB* 75 MG PO SCH (08:47)
[2018-11-10] MEDS: Multivitamins/Minerals TAB PO SCH (08:47)
[2018-11-10] MEDS: Sulfamethox/Trimethoprim DS 800/160* TAB PO SCH ×2 (08:47→22:17)
[2018-11-10] MEDS: Topiramate TAB(*) 100 MG PO SCH (08:47)
[2018-11-10] MEDS ORDERED: Atorvastatin* 10 MG TAB PO SCH (09:00)
--- NOTE | 2018-11-10 10:14 | PN ---
Subjective Date of Service: 11/10/18 Length of Stay: 1 Days Interval History: 53 y/o female presenting to [facility] – [place], [place] with complaints of slurred. Speech she states that today her speech is improving and returning to base line. Review of Systems: Denied CP, SOB, or palpitations. Objective Active Medications: Albuterol (Ventolin Hfa Inhaler*) 2 puff INH Q4H PRN PRN Reason: SHORTNESS OF BREATH Atorvastatin Calcium (Lipitor*) 40 mg PO DAILY [facility]; Protocol Clopidogrel Bisulfate (Plavix Tab*) 75 mg PO DAILY [facility] Last Admin: 11/10/18 08:47 Dose: 75 mg Clozapine (Clozapine Tab*) 300 mg PO BEDTIME [facility] Last Admin: 11/09/18 21:17 Dose: 300 mg Dextrose (Dextrose 50% Vial 50 Ml*) 25 ml IV PUSH .FOR FS < 60 - SS PRN PRN Reason: FS < 60 Enoxaparin Sodium (Lovenox(*)) 40 mg SUBCUT Q24H [facility] Last Admin: 11/09/18 18:36 Dose: 40 mg Fluoxetine HCl (Prozac Cap*) 40 mg PO QAM [facility] Last Admin: 11/10/18 08:45 Dose: 40 mg Fluticasone Propionate (Flonase Nasal [place] 50mcg*) 2 spray BOTH NARES DAILY [facility] Insulin Glargine (Lantus(*)) 20 units SUBCUT DAILY [facility] Last Admin: 11/10/18 08:43 Dose: 20 unit Insulin Human Lispro (Humalog*) 0 units SUBCUT AC [facility]; Protocol Last Admin: 11/10/18 08:43 Dose: 2 unit Levothyroxine Sodium (Synthroid Tab*) 88 mcg PO DAILY@0600 [facility] Last Admin: 11/10/18 05:43 Dose: 88 mcg [place] Carbonate ([place] Carbonate Tab*) 900 mg PO BEDTIME [facility] Last Admin: 11/09/18 21:16 Dose: 900 mg Lurasidone HCl (Latuda) 80 mg PO QPM [facility] Last Admin: 11/09/18 18:36 Dose: 80 mg Mometasone Furoate/Formoterol Fumar (Dulera 200/5 Mdi*) 2 puff INH BID [facility]; Protocol Last Admin: 11/10/18 07:59 Dose: 2 puff Multivitamins/Minerals (Theragran/Minerals Tab*) 1 tab PO DAILY [facility] Last Admin: 11/10/18 08:47 Dose: 1 tab Temazepam (Restoril Cap*) 15 mg PO BEDTIME [facility] Last Admin: 11/09/18 21:17 Dose: 15 mg Topiramate (Topamax(*)) 100 mg PO QAM [facility] Last Admin: 11/10/18 08:47 Dose: 100 mg Topiramate (Topamax(*)) 50 mg PO BEDTIME [facility] Last Admin: 11/09/18 21:16 Dose: 50 mg Tramadol HCl (Ultram*) 50 mg PO Q6HR PRN PRN Reason: PAIN - MILD Last Admin: 11/09/18 18:33 Dose: 50 mg Trimethoprim/Sulfamethoxazole (Bactrim Ds 800/160 Tab*) 1 tab PO BID [facility] Last Admin: 11/10/18 08:47 Dose: 1 tab Vital Signs 11/09/18 11/09/18 11/09/18 12:29 12:30 13:00 Temperature Pulse Rate 72 70 Respiratory 23 15 18 Rate Blood Pressure 140/111 129/80 (mmHg) O2 Sat by Pulse 97 98 Oximetry 11/09/18 11/09/18 11/09/18 13:01 13:30 14:00 Temperature Pulse Rate 71 69 74 Respiratory 17 14 20 Rate Blood Pressure 148/84 (mmHg) O2 Sat by Pulse 97 99 98 Oximetry 11/09/18 11/09/18 11/09/18 14:01 14:30 15:17 Temperature Pulse Rate 78 Respiratory 15 16 16 Rate Blood Pressure 137/88 142/87 (mmHg) O2 Sat by Pulse 98 Oximetry 11/09/18 11/09/18 11/09/18 15:20 15:31 15:59 Temperature 98.1 F Pulse Rate 75 77 71 Respiratory 11 17 18 Rate Blood Pressure 137/77 139/81 134/50 (mmHg) O2 Sat by Pulse 98 98 99 Oximetry 11/09/18 11/09/18 11/09/18 16:36 16:48 18:33 Temperature 98.2 F 98.1 F Pulse Rate 77 71 Respiratory 17 18 16 Rate Blood Pressure 131/81 134/50 (mmHg) O2 Sat by Pulse 98 99 Oximetry 11/09/18 11/09/18 11/09/18 19:20 19:38 19:40 Temperature 97.8 F Pulse Rate 92 84 Respiratory 17 20 Rate Blood Pressure 117/78 (mmHg) O2 Sat by Pulse 99 100 99 Oximetry 11/09/18 11/09/18 11/10/18 21:21 23:57 03:44 Temperature 97.4 F 97.5 F Pulse Rate 113 104 Respiratory 16 18 18 Rate Blood Pressure 113/94 121/63 (mmHg) O2 Sat by Pulse 97 98 Oximetry Intake and Output Last 24 Hours 11/08/18 11/09/18 11/10/18 11/11/18 06:59 06:59 06:59 06:59 Intake Total 1720 Output Total 0 Balance 1720 Weight 226 lb 8 oz Intake: IV Fluids 1000 Oral 720 Output: Urine 0 Oxygen Devices in Use Now: None Neurology Exam: General: Well nourished, well developed, and in no acute distress HEENT: Normocephelic/atraumatic, sclera anicteric, mucous membranes moist Neck: Supple Chest: Clear to auscultation bilaterally Cardiovascular: Regular rate and rhythm without murmurs, rubs, gallops Abdomen: Soft, non-tender/non-distended Extremities: No clubbing, cyanosis, or edema Neurological Findings: Awake, alert, and oriented to person, place, and time. Speech: fluent with mild dysarthria, no slurring noted, no receptive or expressive aphasia noted, repetition intact Cranial Nerve: PERRL, EOM intact, VFF, no nystagmus, face symmetric bilaterally , facial sensation intact, hearing intact to finger rub bilaterally, palate elevates symmetrically, tongue midline, SCM and Trapezius 5/5. Motor: 5/5 throughout, proximal and distal extremities x4 tone/bulk normal, no leg drift noted, no pronator drift noted, Sensation: intact to LT bilaterally upper and lower extremities Deep Tendon Reflex: 1+ symmetric in the upper/lower extremities, Babinski - down going Finger to nose, rapid alternating movements intact without tremor, no dysdiadochokinesia Gait: wide based, slight stoop, Romberg: minimal sway noted with eyes open and closed, Result Diagrams: 11/09/18 10:45 11/09/18 10:45 Assessment/Plan 53 y/o patient with a history of IDD, bipolar disorder, schizoaffective disorder , DM, HLD, hypothyroidism, asthma, and hx of DVT and possible TIA, presenting to [facility] [place], [place] with complaints of slurred speech upon awaking noted by her roommate with associated facial droop and left sided weakness, Slurred Speech :MRI negative for ischemic changes, speech improved, no evidence of Afib on Tele :Echo in june negative for bubble study :CTA in August shows no stenosis in the neck, CTA head did show mild narrowing of right internal carotid artery, and a right aplastic a1 segment : For now would continue statin, maintain LDL < 70, Continue with tight DM control, would strive for Good BP control, :Given recurrence of speech disturbance could consider EEG done as outpatient , Headaches : today patient noted headaches after eating food high in glucose : associated nausea with these and light and sound sensitive : No headache now : Not worse with bearing down, not worse with position, not worse headache of her life : it involves the frontal aspect of her head, described as a pressure : MRI negative, and recent CTA head neck with no aneurysm noted, : For now would continue Topamax, we could increase as outpatint and add riboflavin, : These last over an hour at times, sound migrainous in nature however location is not typical, : Consider sleep study as outpatient, UTI : Bactrim : per hospitalist DM : continue sliding scale : per hospitalist HLD : statin : strive for LDL less than 70 Asthma : per hospitalist : continue inhalers IDD : supportive care Hypothyroid : per hospitalist Schizoaffective disorder : Continue home medications :Per hospitalist From neuro standpoint patient could be discharged home with follow up in 6-8 weeks. Given recent CTA and echo would not repeat at this point. Consider EEG as outpatient.
[2018-11-10] MEDS: Fluticasone NASAL SPRAY 50MCG* 16 gm SPRAY BTL BOTH NARES SCH (11:38)
[2018-11-10 12:49] LABS: Lithium < 0.10 mmol/L (0.6-1.2)
[2018-11-10 14:23] LABS: C Reactive Protein 7.05 mg/L (<8.01)
[2018-11-10] MEDS: Enoxaparin(*) 40 MG/0.4 ML SYR SUBCUT SCH (16:53)
[2018-11-10] MEDS: Lurasidone(*) 80 MG TAB PO SCH (18:17)
--- NOTE | 2018-11-10 19:21 | PN ---
Subjective Date of Service: 11/10/18 Interval History: Ms. Urban is very lethargic on my exam. She will wake up and speak 1-2 sentences then falls back asleep. She reports feeling very tired. Denies CP, SOB , N/V. Did eat breakfast and dinner. Nursing concerned about lethargy. Family History: Unchanged from Admission Social History: Unchanged from Admission Past Medical History: Unchanged from Admission Objective Active Medications: Albuterol (Ventolin Hfa Inhaler*) 2 puff INH Q4H PRN SHORTNESS OF BREATH Atorvastatin Calcium (Lipitor*) 80 mg PO DAILY [facility]; Protocol Clopidogrel Bisulfate (Plavix Tab*) 75 mg PO DAILY [facility] Clozapine (Clozapine Tab*) 300 mg PO BEDTIME [facility] Dextrose (Dextrose 50% Vial 50 Ml*) 25 ml IV PUSH .FOR FS < 60 - SS PRN FS < 60 Enoxaparin Sodium (Lovenox(*)) 40 mg SUBCUT Q24H [facility] Fluoxetine HCl (Prozac Cap*) 40 mg PO QAM [facility] Fluticasone Propionate (Flonase Nasal [place] 50mcg*) 2 spray BOTH NARES DAILY [facility] Insulin Glargine (Lantus(*)) 20 units SUBCUT DAILY [facility] Insulin Human Lispro (Humalog*) 0 units SUBCUT AC [facility]; Protocol Levothyroxine Sodium (Synthroid Tab*) 88 mcg PO DAILY@0600 [facility] [place] Carbonate ([place] Carbonate Tab*) 900 mg PO BEDTIME [facility] Lurasidone HCl (Latuda) 80 mg PO QPM [facility] Mometasone Furoate/Formoterol Fumar (Dulera 200/5 Mdi*) 2 puff INH BID [facility]; Protocol Multivitamins/Minerals (Theragran/Minerals Tab*) 1 tab PO DAILY [facility] Temazepam (Restoril Cap*) 15 mg PO BEDTIME [facility] Topiramate (Topamax(*)) 100 mg PO QAM [facility] Topiramate (Topamax(*)) 50 mg PO BEDTIME [facility] Tramadol HCl (Ultram*) 50 mg PO Q6HR PRN PAIN - MILD Trimethoprim/Sulfamethoxazole (Bactrim Ds 800/160 Tab*) 1 tab PO BID [facility] Vital Signs - 8 hr 11/10/18 11/10/18 11:24 15:15 Temperature 98.4 F 97.7 F Pulse Rate 101 98 Respiratory 18 20 Rate Blood Pressure 117/64 127/68 (mmHg) O2 Sat by Pulse 98 99 Oximetry Oxygen Devices in Use Now: None Appearance: Middle-aged female laying in bed in NAD Eyes: No Scleral Icterus Ears/Nose/Mouth/Throat: Mucous Membranes Moist Neck: NL Appearance and Movements; NL JVP, Trachea Midline Respiratory: Symmetrical Chest Expansion and Respiratory Effort, Clear to Auscultation Cardiovascular: NL Sounds; No Murmurs; No JVD, RRR Abdominal: NL Sounds; No Tenderness; No Distention Extremities: No Edema Neurological: - - Lethargic but awakens to voice for a brief period Lines/Tubes/Other Access: Clean, Dry and Intact Peripheral IV Nutrition: Taking PO's Result Diagrams: 11/09/18 10:45 11/09/18 10:45 Assess/Plan/Problems-Billing Assessment: Ms. Urban is a 53 F with PMH of IDD, bipolar disorder, schizoaffective disorder , DM, HLD, hypothyroidism, asthma, and hx of DVT and possible TIA; presenting with complaints of slurred speech upon awaking noted by her roommate with associated facial droop and left sided weakness. - Patient Problems (1) Slurred speech Code(s): R47.81 - SLURRED SPEECH Comment: - Previous workup with unremarkable echo and head/neck CTA - MRI unremarkable - Appreciate Neuro consult; recommends lipid, glucose, and BP control - Continue aspirin, Plavix; increased atorvastatin (2) Lethargy Code(s): R53.83 - OTHER FATIGUE Comment: - Occurring this morning, difficult to arouse, but will wake to voice and is protecting airway - ABG showing compensated respiratory alkalosis - CT head unremarkable - EEG pending (ordered per Neuro recommendation) (3) UTI (urinary tract infection) Comment: - Urine culture growing >100k colonies E. coli - Continue Bactrim (abx options limited d/t allergies) (4) Diabetes Code(s): E11.9 - TYPE 2 DIABETES MELLITUS WITHOUT COMPLICATIONS Comment: - A1c in June was 6.4% - Hold metformin - Continue Lantus, Lispro SS (5) Hx-TIA (transient ischemic attack) Code(s): Z86.73 - PRSNL HX OF TIA (TIA), AND CEREB INFRC W/O RESID DEFICITS Comment: - Continue atorvastatin, aspirin, Plavix (6) Schizoaffective disorder, depressive type Code(s): F25.1 - SCHIZOAFFECTIVE DISORDER, DEPRESSIVE TYPE Comment: - [place] levels subtherapeutic - Appreciate Psych consult for lithium dosing - Continue clozapine, lithium, Latuda, Topamax, temazepam, fluoxetine (7) Hypothyroidism Code(s): E03.9 - HYPOTHYROIDISM, UNSPECIFIED Comment: - Continue levothyroxine (8) DVT prophylaxis Comment: - Lovenox (9) Full code status Code(s): Z78.9 - OTHER SPECIFIED HEALTH STATUS Comment: Status and Disposition: Observation. Anticipate d/c home when medically stable. Attending: Joselin Avalos
[2018-11-10] MEDS: Topiramate TAB(*) 25 MG PO SCH (22:16)
[2018-11-10] MEDS: Temazepam CAP* 15 MG PO SCH (22:17)
[2018-11-10] MEDS: CloZAPine TAB* 100 MG TAB PO SCH (22:17)
[2018-11-10] MEDS: Lithium Carbonate TAB* 300 MG PO SCH (22:17)
[2018-11-11] MEDS: Levothyroxine TAB* 88 MCG TAB PO SCH (05:38)
[2018-11-11] MEDS: Mometasone/Formoter 200/5 MDI INH SCH ×2 (07:45→19:26)
[2018-11-11] MEDS ORDERED: Atorvastatin* 40 MG TAB PO SCH (09:00)
[2018-11-11] MEDS: Clopidogrel TAB* 75 MG PO SCH (09:57)
[2018-11-11] MEDS: FLUoxetine CAP* 20 MG PO SCH (09:57)
[2018-11-11] MEDS: Sulfamethox/Trimethoprim DS 800/160* TAB PO SCH ×2 (09:57→22:01)
[2018-11-11] MEDS: Atorvastatin* 80 MG TAB PO SCH (09:57)
[2018-11-11] MEDS: Multivitamins/Minerals TAB PO SCH (09:57)
[2018-11-11] MEDS: Insulin LISPRO* 1 UNITS UNIT SUBCUT SCH ×3 (09:58→17:07)
[2018-11-11] MEDS: Insulin GLARGINE(*) 1 UNITS UNIT SUBCUT SCH (09:58)
[2018-11-11 10:10] LABS: ABS Eosinophils 0.2 10^3/ul (0-0.6); ABS Monocytes 0.4 10^3/ul (0-0.8); ABS Neutrophils 3.3 10^3/ul (1.5-7.7); Hematocrit 38 % (35-47); Hemoglobin 12.9 g/dL (12.0-16.0); Mean Corpuscular HGB Conc 34 g/dL (31-36); Mean Corpuscular Hemoglobin 30 pg (27-31); Mean Corpuscular Volume 89 fL (80-97); Mean Platelet Volume 8.1 fL (7.4-10.4); Platelet Count 150 10^3/uL (150-450); Red Blood Count 4.33 10^6 /uL (3.70-4.87); Red Cell Distribution Width 16 % (10-15); White Blood Count 4.8 10^3/uL (3.5-10.8)
--- NOTE | 2018-11-11 10:28 | CONSULT ---
Consult Consult: Consultation request for Psychiatric evaluation and recommendation in regards to sub-therapeutic lithium level . CC " I am fine" Patient reported being brought by her roommate to the hospital. She is currently being treated on the medical floor for possible CVA/ TIA, UTI, DM2. The patient denied recent behavioral changes. She reported recent psychiatric medication changes that included being discontinued from Topamax for a couple of weeks and being restarted last week on 25mg twice a day for binge eating disorder. Patient reported compliance with medications. Patient denied suicidal ideation, intent or plan. She denied homicidal ideation intent or plan. She denied auditory and or visual hallucinations. Patient reported compliance with medication. She wants to live for her son and dog. She denied access to firearms and/ or a excessive stockpile of medications. She reported trouble with sleep however denied staying up for days. She denied feelings of depression , guilt. She reported feeling more tired than usual. She reported no changes in her appetite. She denied a increase in caffeine or salt intake. She denied symptoms of julian such as having many ideas at once. Denied increased talkativeness where no one can interrupt. Denied feeling irritable most of the time while having an persistent abundance of energy most of the day without the use of energy drinks, stimulants, or recreational drug use. Denied an increase in intensity in goal directed activities. Denied having the decreased need to sleep for days , having prolonged elevated heightened mood , or feeling on top of the world. Denied impulsive risky sexual encounters. Denied spending money recklessly , going on spending sprees wiping out savings. Denied impulsively traveling out of town or country, having super banda, and unrealistic wealth or fame. She denied feeling that TV is making references. She denied feeling that people are spying following , or reading her thoughts. PAST PSYCHIATRIC HISTORY: Prior Diagnosis : Schizoaffective disorder History of past Psychiatric Hospitalizations: > 10 prior psychiatric hospitalizations 10/27/17, 04/16/10, 05/18/07 History of past suicide/homicide attempts : Multiple suicide attempts by overdosing. Denied past homicidal incidents. Outpatient follow-up: Dr. Holcomb at [facility] Medications: Albuterol (Ventolin Hfa Inhaler*) 2 puff INH Q4H PRN PRN Reason: SHORTNESS OF BREATH Atorvastatin Calcium (Lipitor*) 80 mg PO DAILY [facility]; Protocol Last Admin: 11/11/18 09:57 Dose: 80 mg Clopidogrel Bisulfate (Plavix Tab*) 75 mg PO DAILY [facility] Last Admin: 11/11/18 09:57 Dose: 75 mg Clozapine (Clozapine Tab*) 300 mg PO BEDTIME [facility] Last Admin: 11/10/18 22:17 Dose: Not Given Dextrose (Dextrose 50% Vial 50 Ml*) 25 ml IV PUSH .FOR FS < 60 - SS PRN PRN Reason: FS < 60 Enoxaparin Sodium (Lovenox(*)) 40 mg SUBCUT Q24H [facility] Last Admin: 11/10/18 16:53 Dose: 40 mg Fluoxetine HCl (Prozac Cap*) 40 mg PO QAM [facility] Last Admin: 11/11/18 09:57 Dose: 40 mg Fluticasone Propionate (Flonase Nasal [place] 50mcg*) 2 spray BOTH NARES DAILY [facility] Last Admin: 11/10/18 11:38 Dose: Not Given Insulin Glargine (Lantus(*)) 20 units SUBCUT DAILY [facility] Last Admin: 11/11/18 09:58 Dose: 20 unit Insulin Human Lispro (Humalog*) 0 units SUBCUT AC [facility]; Protocol Last Admin: 11/11/18 09:58 Dose: 2 unit Levothyroxine Sodium (Synthroid Tab*) 88 mcg PO DAILY@0600 [facility] Last Admin: 11/11/18 05:38 Dose: 88 mcg [place] Carbonate ([place] Carbonate Tab*) 900 mg PO BEDTIME [facility] Last Admin: 11/10/18 22:17 Dose: 900 mg Lurasidone HCl (Latuda) 80 mg PO QPM [facility] Last Admin: 11/10/18 18:17 Dose: Not Given Mometasone Furoate/Formoterol Fumar (Dulera 200/5 Mdi*) 2 puff INH BID [facility]; Protocol Last Admin: 11/11/18 07:45 Dose: 2 puff Multivitamins/Minerals (Theragran/Minerals Tab*) 1 tab PO DAILY [facility] Last Admin: 11/11/18 09:57 Dose: 1 tab Temazepam (Restoril Cap*) 15 mg PO BEDTIME [facility] Last Admin: 11/10/18 22:17 Dose: Not Given Topiramate (Topamax(*)) 100 mg PO QAM [facility] Last Admin: 11/10/18 08:47 Dose: 100 mg Topiramate (Topamax(*)) 50 mg PO BEDTIME [facility] Last Admin: 11/10/18 22:16 Dose: 50 mg Tramadol HCl (Ultram*) 50 mg PO Q6HR PRN PRN Reason: PAIN - MILD Last Admin: 11/09/18 18:33 Dose: 50 mg Trimethoprim/Sulfamethoxazole (Bactrim Ds 800/160 Tab*) 1 tab PO BID [facility] Last Admin: 11/11/18 09:57 Dose: 1 tab APPEARANCE : 53 year old female who appears stated age. Patient dressed appropriately for setting. She displays poor hygiene BEHAVIOR: Cooperative , calm EYE CONTACT: Fair PSYCHOMOTOR ACTIVITY: No psychomotor agitation or retardation. MOVEMENTS: No abnormal movements observed. SPEECH : Normal rate, rhythm, volume and tone. MOOD : "Alright" AFFECT : constricted THOUGHT PROCESS: formulated and organized in a logical, linear goal directed manner. No flight of ideas , No loose associations , or circumstantiality. THOUGHT CONTENT: no delusions, preoccupations, obsessions, phobias or preoccupations. PERCEPTION: No current auditory or visual hallucinations. Doesnt appear to be responding to internal cues. No evidence of depersonalization , de-realization, or illusions SUICIDALITY Denied suicidal ideation, intent or plan. HOMICIDALITY Denied homicidal ideation, intent or plan. Insight/judgment: Fair insight and judgment ORIENTATION: Oriented to self, location, and time. Diagnosis : Schizoaffective disorder, bipolar type, currently in remission. Binge Eating disorder. Assessment: 53 year old female with history of schizoaffective disorder came to the hospital after suspected TIA and is currently being treated on the medical floor. Plan #Patient doesnt require inpatient psychiatric admission at this time. # [place] level 0.10 Reasons for sub therapeutic [place] levels include non- compliance, increased caffeine intake, and increase in sodium intake or treatment with a high sodium content. # Recommend outpatient follow up with her outpatient Psychiatrist Dr. Holcomb # Continue current lithium dose at this time. # Repeat lithium level # Consider decreasing and or limiting Topamax to 100mg at bedtime to minimize daytime sedation. #WBC and ANC within normal limits to continue clozapine #Recommendations communicated to primary team #Psychiatry will continue to follow the patient Patient has children and if future orientated. Currently no suicidal ideation, intent or plan. No substance abuse. No alcohol abuse. She wants to live for her son and dog, she has no barriers to mental health treatment and is engaged in treatment. She has no access to firearms. She has prior suicide attempts and a affective disorder. The patient was advised of the 24 hour / 7 days a week availability of the emergency room and to call 911 in the event of an emergency The risks, benefits, and alternative treatment options were discussed as well as of the risks of refusing treatment. Thank you for the consult, Dejon Garvey MD. ABG pH 7.42 (7.35-7.45) 11/10/18 14:22 ABG HCO3 22.3 mmol/L (19-31) 11/10/18 14:22 Sodium 141 mmol/L (135-145) 11/11/18 09:51 Potassium 3.8 mmol/L (3.5-5.0) 11/11/18 09:51 BUN 17 mg/dL (6-24) 11/11/18 09:51 Creatinine 1.35 mg/dL (0.51-0.95) H 11/11/18 09:51 Calcium 9.1 mg/dL (8.6-10.3) 11/11/18 09:51 AST 14 U/L (13-39) 11/09/18 10:45 ALT 16 U/L (7-52) 11/09/18 10:45 Triglycerides 147 mg/dL 11/09/18 10:45 Cholesterol 197 mg/dL 11/09/18 10:45 LDL Cholesterol 126 mg/dL 11/09/18 10:45 Vital Signs Temp Pulse Resp BP Pulse Ox 97.5 F 56 18 115/72 97 11/11/18 07:15 11/11/18 07:49 11/11/18 07:49 11/11/18 07:15 11/11/18 07:49
[2018-11-11 10:33] LABS: BUN/Creatinine Ratio 12.6 (8-20); Calcium 9.1 mg/dL (8.6-10.3); EGFR African American 49.3 (>60); EGFR Non-African American 40.7 (>60); Potassium 3.8 mmol/L (3.5-5.0)
[2018-11-11] MEDS: Topiramate TAB(*) 100 MG PO SCH (12:00)
[2018-11-11] MEDS: traMADol TAB* 50 MG PO PRN (12:23)
[2018-11-11] MEDS: Fluticasone NASAL SPRAY 50MCG* 16 gm SPRAY BTL BOTH NARES SCH (12:24)
--- NOTE | 2018-11-11 15:36 | EEG ---
ELECTROENCEPHALOGRAPHY: DATE OF STUDY: 11/11/18 - ROOM #441 REQUESTING PROVIDER: Nicole Molina NP CLINICAL PROBLEM: Erin Urban is a 53-year-old female with a history of diabetes, hyperlipidemia, intellectual disability, and possible history of TIA. She came to the emergency room via EMS on 11/09/18 with a complaint of slurred speech. She has had slurred speech for about 3 days on admission. There has been frequent headaches for about a week, and 2 weeks of feeling that "people don't understand me." On 11/10/18, the patient stated her speech was improving and is now back to baseline. REPORT: This is a 16-channel EEG. In the beginning of the record, there was a posterior dominant 10 Hz alpha rhythm which was symmetric and attenuated with eye opening. As the record continued, the background rhythm remained symmetric. There was occasional slowing in the background rhythm consistent with drowsiness. The background rhythm was symmetric. There was no evidence of sharp or spike wave. Intermittently, there was some movement artifact. Before and after the movement artifact, there was no change in the background rhythm. CLINICAL IMPRESSION: This was a normal awake and drowsy EEG. There was no evidence of epileptiform activity. [id number]/[facility] #: [id number] [facility] CENTERAicha
[2018-11-11] MEDS: Lurasidone(*) 80 MG TAB PO SCH (17:23)
[2018-11-11] MEDS: Enoxaparin(*) 40 MG/0.4 ML SYR SUBCUT SCH (17:23)
--- NOTE | 2018-11-11 17:29 | PN ---
Subjective Date of Service: 11/11/18 Interval History: Patient lying in bed on assessment. She is alert, awake, and oriented. No slurred speech noted. She reports she has been having headaches for about 3 weeks. She reports this headaches are always after food like cake, ice cream, pie. Reports headaches resolved on their own. Reports associated symptoms of increased thirst. Denies cp, sob, nausea, vomiting, headache, dizziness, palpitations, weakness. Family History: Unchanged from Admission Social History: Unchanged from Admission Past Medical History: Unchanged from Admission Objective Active Medications: Albuterol (Ventolin Hfa Inhaler*) 2 puff INH Q4H PRN PRN Reason: SHORTNESS OF BREATH Atorvastatin Calcium (Lipitor*) 80 mg PO DAILY [facility]; Protocol Last Admin: 11/11/18 09:57 Dose: 80 mg Clopidogrel Bisulfate (Plavix Tab*) 75 mg PO DAILY [facility] Last Admin: 11/11/18 09:57 Dose: 75 mg Clozapine (Clozapine Tab*) 300 mg PO BEDTIME [facility] Last Admin: 11/10/18 22:17 Dose: Not Given Dextrose (Dextrose 50% Vial 50 Ml*) 25 ml IV PUSH .FOR FS < 60 - SS PRN PRN Reason: FS < 60 Enoxaparin Sodium (Lovenox(*)) 40 mg SUBCUT Q24H [facility] Last Admin: 11/10/18 16:53 Dose: 40 mg Fluoxetine HCl (Prozac Cap*) 40 mg PO QAM [facility] Last Admin: 11/11/18 09:57 Dose: 40 mg Fluticasone Propionate (Flonase Nasal [place] 50mcg*) 2 spray BOTH NARES DAILY [facility] Last Admin: 11/11/18 12:24 Dose: 2 spray Insulin Glargine (Lantus(*)) 20 units SUBCUT DAILY [facility] Last Admin: 11/11/18 09:58 Dose: 20 unit Insulin Human Lispro (Humalog*) 0 units SUBCUT AC [facility]; Protocol Last Admin: 11/11/18 17:07 Dose: Not Given Levothyroxine Sodium (Synthroid Tab*) 88 mcg PO DAILY@0600 [facility] Last Admin: 11/11/18 05:38 Dose: 88 mcg [place] Carbonate ([place] Carbonate Tab*) 900 mg PO BEDTIME [facility] Last Admin: 11/10/18 22:17 Dose: 900 mg Lurasidone HCl (Latuda) 80 mg PO QPM [facility] Last Admin: 11/10/18 18:17 Dose: Not Given Mometasone Furoate/Formoterol Fumar (Dulera 200/5 Mdi*) 2 puff INH BID [facility]; Protocol Last Admin: 11/11/18 07:45 Dose: 2 puff Multivitamins/Minerals (Theragran/Minerals Tab*) 1 tab PO DAILY [facility] Last Admin: 11/11/18 09:57 Dose: 1 tab Temazepam (Restoril Cap*) 15 mg PO BEDTIME [facility] Last Admin: 11/10/18 22:17 Dose: Not Given Topiramate (Topamax(*)) 100 mg PO BEDTIME [facility] Tramadol HCl (Ultram*) 50 mg PO Q6HR PRN PRN Reason: PAIN - MILD Last Admin: 11/11/18 12:23 Dose: 50 mg Trimethoprim/Sulfamethoxazole (Bactrim Ds 800/160 Tab*) 1 tab PO BID [facility] Last Admin: 11/11/18 09:57 Dose: 1 tab Vital Signs - 8 hr 11/11/18 12:23 Respiratory 18 Rate Oxygen Devices in Use Now: None Appearance: Comfortable, NAD Eyes: No Scleral Icterus, PERRLA Ears/Nose/Mouth/Throat: Clear Oropharnyx, Mucous Membranes Moist Neck: NL Appearance and Movements; NL JVP Respiratory: Symmetrical Chest Expansion and Respiratory Effort, Clear to Auscultation Cardiovascular: NL Sounds; No Murmurs; No JVD, RRR, No Edema Abdominal: NL Sounds; No Tenderness; No Distention Lymphatic: No Cervical Adenopathy Extremities: No Edema Skin: No Rash or Ulcers Neurological: Alert and Oriented x 3, NL Muscle Strength and Tone Nutrition: Taking PO's Result Diagrams: 11/11/18 09:51 11/11/18 09:51 Additional Lab and Data: Laboratory Results - last 24 hr 11/10/18 11/10/18 11/11/18 15:05 22:41 08:57 WBC RBC Hgb Hct MCV MCH MCHC RDW Plt Count MPV Neut % (Auto) Lymph % (Auto) [place] % (Auto) Eos % (Auto) Baso % (Auto) Absolute Neuts (auto) Absolute Lymphs (auto) Absolute Monos (auto) Absolute Eos (auto) Absolute Basos (auto) Absolute Nucleated RBC Nucleated RBC % ESR 8 Sodium Potassium Chloride Carbon Dioxide Anion Gap BUN Creatinine Est GFR ( Amer) Est GFR (Non-Af Amer) BUN/Creatinine Ratio Glucose POC Glucose (mg/dL) 112 H 149 H Hemoglobin A1c Calcium [place] 11/11/18 11/11/18 11/11/18 09:51 09:51 12:11 WBC 4.8 RBC 4.33 Hgb 12.9 Hct 38 MCV 89 MCH 30 MCHC 34 RDW 16 H Plt Count 150 MPV 8.1 Neut % (Auto) 67.3 Lymph % (Auto) 20.0 [place] % (Auto) 8.3 Eos % (Auto) 4.0 Baso % (Auto) 0.4 Absolute Neuts (auto) 3.3 Absolute Lymphs (auto) 1.0 Absolute Monos (auto) 0.4 Absolute Eos (auto) 0.2 Absolute Basos (auto) 0.0 Absolute Nucleated RBC 0.0 Nucleated RBC % 0.0 ESR Sodium 141 Potassium 3.8 Chloride 115 H Carbon Dioxide 21 L Anion Gap 5 BUN 17 Creatinine 1.35 H Est GFR ( Amer) 49.3 Est GFR (Non-Af Amer) 40.7 BUN/Creatinine Ratio 12.6 Glucose 177 H POC Glucose (mg/dL) 65 L Hemoglobin A1c Calcium 9.1 [place] 11/11/18 11/11/18 11/11/18 12:16 12:16 16:22 WBC RBC Hgb Hct MCV MCH MCHC RDW Plt Count MPV Neut % (Auto) Lymph % (Auto) [place] % (Auto) Eos % (Auto) Baso % (Auto) Absolute Neuts (auto) Absolute Lymphs (auto) Absolute Monos (auto) Absolute Eos (auto) Absolute Basos (auto) Absolute Nucleated RBC Nucleated RBC % ESR Sodium Potassium Chloride Carbon Dioxide Anion Gap BUN Creatinine Est GFR ( Amer) Est GFR (Non-Af Amer) BUN/Creatinine Ratio Glucose POC Glucose (mg/dL) 74 Hemoglobin A1c 5.9 H Calcium [place] 0.56 L Microbiology and Other Data: Microbiology 11/09/18 12:15 Urine Culture - Final Urine Escherichia Coli Normal Radha Assess/Plan/Problems-Billing Assessment: Ms. Urban is a 53 F with PMH of IDD, bipolar disorder, schizoaffective disorder , DM, HLD, hypothyroidism, asthma, and hx of DVT and possible TIA; presenting with complaints of slurred speech upon awaking noted by her roommate with associated facial droop and left sided weakness. - Patient Problems (1) Headache Comment: - Currently denies headache - Given report of headaches after sugary foods and increase in thirst; Nutrition consult placed - Neurology work up unremarkable - Follow up with Neurology outpatient (2) Lethargy Comment: - Resolved - Yesterday noted to be lethargic, ABG revleaed compensated respiratory alkalosis, CT head unremarkable, EEG normal - Discussed with Dr Baca who reports it could be medication related therefore Topamax decreased to once day (3) Slurred speech Comment: - Resolved - Previous workup with unremarkable echo and head/neck CTA - MRI and EEG unremarkable - Appreciate Neuro consult; recommends lipid, glucose, and BP control - Continue aspirin, Plavix; increased atorvastatin - Will need follow up with Olayinka Vargas [facility] in 6 to 8 weeks (4) UTI (urinary tract infection) Comment: - Urine culture growing >100k colonies E. coli - Continue Bactrim (abx options limited d/t allergies) (5) Diabetes Comment: - Nutitrion consult ordered given reports of headaches after high sugary foods - A1c 5.9% - Hold metformin - Continue Lantus, Lispro SS (6) Hx-TIA (transient ischemic attack) Comment: - Continue atorvastatin, aspirin, Plavix (7) Hypothyroidism Comment: - Continue levothyroxine (8) Schizoaffective disorder, depressive type Comment: - Dr Garvey consulting. No need to increase lithium dose currently. [place] level repeated and improving - [place] levels subtherapeutic yesterday therefore consult placed for psych - Decreased Topamax as it could be contributing to lethargy. - Continue clozapine, lithium, Latuda, Topamax, temazepam, fluoxetine (9) Full code status Comment: (10) DVT prophylaxis Comment: - Lovenox Status and Disposition: Observation. Anticipate d/c home when medically stable. Attending: Latoya Weiner
[2018-11-11] MEDS: NS 0.9% 1000 ML** 1,000 ML IV SCH (19:52)
[2018-11-11] MEDS ORDERED: Topiramate TAB(*) 100 MG PO SCH (21:00)
[2018-11-11] MEDS: Lithium Carbonate TAB* 300 MG PO SCH (22:00)
[2018-11-11] MEDS: Temazepam CAP* 15 MG PO SCH (22:00)
[2018-11-11] MEDS: CloZAPine TAB* 100 MG TAB PO SCH (22:02)
[2018-11-12] MEDS: Levothyroxine TAB* 88 MCG TAB PO SCH (06:07)
[2018-11-12 06:32] LABS: BUN/Creatinine Ratio 15.7 (8-20); Calcium 9.1 mg/dL (8.6-10.3); EGFR African American 49.7 (>60); EGFR Non-African American 41.1 (>60); Potassium 3.9 mmol/L (3.5-5.0)
[2018-11-12] MEDS: Insulin LISPRO* 1 UNITS UNIT SUBCUT SCH ×2 (07:24→11:34)
[2018-11-12] MEDS: Mometasone/Formoter 200/5 MDI INH SCH (08:21)
--- NOTE | 2018-11-12 08:28 | CONSULT ---
Consult Consult: Consultation request for Psychiatric evaluation and recommendation in regards to sub-therapeutic lithium level . CC " Good" Patient reported no overnight events. She reported getting better sleep. She reported frustration with being on "too many psych meds." She plans to talk to Dr. Holcomb about that when she goes to her follow up appointment. The patient denied recent behavioral changes. Patient denied suicidal ideation, intent or plan. She denied homicidal ideation intent or plan. She denied auditory and or visual hallucinations. Patient reported compliance with medication. She wants to live for her son and dog. She denied access to firearms and/ or a excessive stockpile of medications. She reported no changes in her appetite. Albuterol (Ventolin Hfa Inhaler*) 2 puff INH Q4H PRN PRN Reason: SHORTNESS OF BREATH Atorvastatin Calcium (Lipitor*) 80 mg PO DAILY [facility]; Protocol Last Admin: 11/11/18 09:57 Dose: 80 mg Clopidogrel Bisulfate (Plavix Tab*) 75 mg PO DAILY [facility] Last Admin: 11/11/18 09:57 Dose: 75 mg Clozapine (Clozapine Tab*) 300 mg PO BEDTIME [facility] Last Admin: 11/11/18 22:02 Dose: 300 mg Dextrose (Dextrose 50% Vial 50 Ml*) 25 ml IV PUSH .FOR FS < 60 - SS PRN PRN Reason: FS < 60 Enoxaparin Sodium (Lovenox(*)) 40 mg SUBCUT Q24H [facility] Last Admin: 11/11/18 17:23 Dose: 40 mg Fluoxetine HCl (Prozac Cap*) 40 mg PO QAM [facility] Last Admin: 11/11/18 09:57 Dose: 40 mg Fluticasone Propionate (Flonase Nasal [place] 50mcg*) 2 spray BOTH NARES DAILY [facility] Last Admin: 11/11/18 12:24 Dose: 2 spray Sodium Chloride (Ns 0.9% 1000 Ml) 1,000 mls @ 75 mls/hr IV PER RATE [facility] Last Admin: 11/11/18 19:52 Dose: 75 mls/hr Insulin Glargine (Lantus(*)) 20 units SUBCUT DAILY [facility] Last Admin: 11/11/18 09:58 Dose: 20 unit Insulin Human Lispro (Humalog*) 0 units SUBCUT AC [facility]; Protocol Last Admin: 11/12/18 07:24 Dose: Not Given Levothyroxine Sodium (Synthroid Tab*) 88 mcg PO DAILY@0600 [facility] Last Admin: 11/12/18 06:07 Dose: 88 mcg [place] Carbonate ([place] Carbonate Tab*) 900 mg PO BEDTIME [facility] Last Admin: 11/11/18 22:00 Dose: 900 mg Lurasidone HCl (Latuda) 80 mg PO QPM [facility] Last Admin: 11/11/18 17:23 Dose: 80 mg Mometasone Furoate/Formoterol Fumar (Dulera 200/5 Mdi*) 2 puff INH BID [facility]; Protocol Last Admin: 11/11/18 19:26 Dose: 2 puff Multivitamins/Minerals (Theragran/Minerals Tab*) 1 tab PO DAILY [facility] Last Admin: 11/11/18 09:57 Dose: 1 tab Temazepam (Restoril Cap*) 15 mg PO BEDTIME [facility] Last Admin: 11/11/18 22:00 Dose: 15 mg Topiramate (Topamax(*)) 100 mg PO BEDTIME [facility] Last Admin: 11/11/18 22:01 Dose: 100 mg Tramadol HCl (Ultram*) 50 mg PO Q6HR PRN PRN Reason: PAIN - MILD Last Admin: 11/11/18 12:23 Dose: 50 mg Trimethoprim/Sulfamethoxazole (Bactrim Ds 800/160 Tab*) 1 tab PO BID [facility] Last Admin: 11/11/18 22:01 Dose: 1 tab APPEARANCE : 53 year old female who appears stated age. Patient dressed appropriately for setting. She displays poor hygiene BEHAVIOR: Cooperative , calm EYE CONTACT: Fair PSYCHOMOTOR ACTIVITY: No psychomotor agitation or retardation. MOVEMENTS: No abnormal movements observed. SPEECH : Normal rate, rhythm, volume and tone. MOOD : "Fine" AFFECT : constricted THOUGHT PROCESS: formulated and organized in a logical, linear goal directed manner. No flight of ideas , No loose associations , or circumstantiality. THOUGHT CONTENT: no delusions, preoccupations, obsessions, phobias or preoccupations. PERCEPTION: No current auditory or visual hallucinations. Doesnt appear to be responding to internal cues. No evidence of depersonalization , de-realization, or illusions SUICIDALITY Denied suicidal ideation, intent or plan. HOMICIDALITY Denied homicidal ideation, intent or plan. Insight/judgment: Fair insight and judgment ORIENTATION: Oriented to self, location, and time. Diagnosis : Schizoaffective disorder, bipolar type, currently in remission. Binge Eating disorder. Assessment: 53 year old female with history of schizoaffective disorder came to the hospital after suspected TIA and is currently being treated on the medical floor. Plan #Patient doesnt require inpatient psychiatric admission at this time. # Recommend outpatient follow up with her outpatient Psychiatrist Dr. Holcomb # Continue lithium 900mg po qhs # Repeat lithium = 0.56 #Recommendations communicated to primary team #Psychiatry will sign off at this time. Patient has children and if future orientated. Currently no suicidal ideation, intent or plan. No substance abuse. No alcohol abuse. She wants to live for her son and dog, she has no barriers to mental health treatment and is engaged in treatment. She has no access to firearms. She has prior suicide attempts and a affective disorder. The patient was advised of the 24 hour / 7 days a week availability of the emergency room and to call 911 in the event of an emergency The risks, benefits, and alternative treatment options were discussed as well as of the risks of refusing treatment. Thank you for the consult, Dejon Garvey MD. 11/09/18 11/09/18 11/09/18 09:06 10:45 10:45 WBC 4.1 RBC 4.63 Hgb 13.9 Hct 41 MCV 88 MCH 30 MCHC 34 RDW 15 Plt Count 135 L MPV 8.2 Neut % (Auto) 70.3 Lymph % (Auto) 21.7 Burke % (Auto) 6.6 Eos % (Auto) 1.0 Baso % (Auto) 0.4 Absolute Neuts (auto) 2.9 Absolute Lymphs (auto) 0.9 L Absolute Monos (auto) 0.3 Absolute Eos (auto) 0.0 Absolute Basos (auto) 0.0 Absolute Nucleated RBC 0.0 Nucleated RBC % 0.0 ESR Cancelled INR (Anticoag Therapy) 1.01 APTT 34.4 ABG pH ABG pCO2 ABG pO2 ABG HCO3 ABG O2 Saturation ABG Base Excess Sodium Potassium Chloride Carbon Dioxide Anion Gap BUN Creatinine Est GFR ( Amer) Est GFR (Non-Af Amer) BUN/Creatinine Ratio Glucose POC Glucose (mg/dL) 163 H Hemoglobin A1c Lactic Acid Calcium Total Bilirubin AST ALT Alkaline Phosphatase Troponin I C-Reactive Protein Total Protein Albumin Globulin Albumin/Globulin Ratio Triglycerides Cholesterol LDL Cholesterol HDL Cholesterol Urine Color Urine Appearance Urine pH Ur Specific [place] Urine Protein Urine Ketones Urine Blood Urine Nitrate Urine Bilirubin Urine Urobilinogen Ur Leukocyte Esterase Urine WBC (Auto) Urine RBC (Auto) Ur Squamous Epith Cells Urine Bacteria Urine Glucose [place] 11/09/18 11/09/18 11/09/18 10:45 10:45 12:15 WBC RBC Hgb Hct MCV MCH MCHC RDW Plt Count MPV Neut % (Auto) Lymph % (Auto) [place] % (Auto) Eos % (Auto) Baso % (Auto) Absolute Neuts (auto) Absolute Lymphs (auto) Absolute Monos (auto) Absolute Eos (auto) Absolute Basos (auto) Absolute Nucleated RBC Nucleated RBC % ESR INR (Anticoag Therapy) APTT ABG pH ABG pCO2 ABG pO2 ABG HCO3 ABG O2 Saturation ABG Base Excess Sodium 143 Potassium 3.8 Chloride 112 H Carbon Dioxide 22 Anion Gap 9 BUN 18 Creatinine 0.94 Est GFR ( Amer) 74.8 Est GFR (Non-Af Amer) 61.8 BUN/Creatinine Ratio 19.1 Glucose 175 H POC Glucose (mg/dL) Hemoglobin A1c Lactic Acid 1.1 Calcium 9.8 Total Bilirubin 0.40 AST 14 ALT 16 Alkaline Phosphatase 86 Troponin I 0.00 C-Reactive Protein 7.05 Total Protein 6.8 Albumin 4.5 Globulin 2.3 Albumin/Globulin Ratio 2.0 Triglycerides 147 Cholesterol 197 LDL Cholesterol 126 HDL Cholesterol 41.3 Urine Color Yellow Urine Appearance Clear Urine pH 6.0 Ur Specific [place] 1.005 L Urine Protein Negative Urine Ketones Trace A Urine Blood Negative Urine Nitrate Positive A Urine Bilirubin Negative Urine Urobilinogen Negative Ur Leukocyte Esterase Trace A Urine WBC (Auto) Trace(0-5/hpf) Urine RBC (Auto) Trace(0-2/hpf) Ur Squamous Epith Cells Present A Urine Bacteria 1+ A Urine Glucose Negative [place] < 0.10 L 11/09/18 11/10/18 11/10/18 17:43 07:43 11:45 WBC RBC Hgb Hct MCV MCH MCHC RDW Plt Count MPV Neut % (Auto) Lymph % (Auto) [place] % (Auto) Eos % (Auto) Baso % (Auto) Absolute Neuts (auto) Absolute Lymphs (auto) Absolute Monos (auto) Absolute Eos (auto) Absolute Basos (auto) Absolute Nucleated RBC Nucleated RBC % ESR INR (Anticoag Therapy) APTT ABG pH ABG pCO2 ABG pO2 ABG HCO3 ABG O2 Saturation ABG Base Excess Sodium Potassium Chloride Carbon Dioxide Anion Gap BUN Creatinine Est GFR ( Amer) Est GFR (Non-Af Amer) BUN/Creatinine Ratio Glucose POC Glucose (mg/dL) 128 H 137 H 134 H Hemoglobin A1c Lactic Acid Calcium Total Bilirubin AST ALT Alkaline Phosphatase Troponin I C-Reactive Protein Total Protein Albumin Globulin Albumin/Globulin Ratio Triglycerides Cholesterol LDL Cholesterol HDL Cholesterol Urine Color Urine Appearance Urine pH Ur Specific [place] Urine Protein Urine Ketones Urine Blood Urine Nitrate Urine Bilirubin Urine Urobilinogen Ur Leukocyte Esterase Urine WBC (Auto) Urine RBC (Auto) Ur Squamous Epith Cells Urine Bacteria Urine Glucose [place] 11/10/18 11/10/18 11/10/18 14:22 15:05 16:54 WBC RBC Hgb Hct MCV MCH MCHC RDW Plt Count MPV Neut % (Auto) Lymph % (Auto) [place] % (Auto) Eos % (Auto) Baso % (Auto) Absolute Neuts (auto) Absolute Lymphs (auto) Absolute Monos (auto) Absolute Eos (auto) Absolute Basos (auto) Absolute Nucleated RBC Nucleated RBC % ESR 8 INR (Anticoag Therapy) APTT ABG pH 7.42 ABG pCO2 31 L ABG pO2 79 L ABG HCO3 22.3 ABG O2 Saturation 98.1 H ABG Base Excess -3.4 L Sodium Potassium Chloride Carbon Dioxide Anion Gap BUN Creatinine Est GFR ( Amer) Est GFR (Non-Af Amer) BUN/Creatinine Ratio Glucose POC Glucose (mg/dL) 93 Hemoglobin A1c Lactic Acid Calcium Total Bilirubin AST ALT Alkaline Phosphatase Troponin I C-Reactive Protein Total Protein Albumin Globulin Albumin/Globulin Ratio Triglycerides Cholesterol LDL Cholesterol HDL Cholesterol Urine Color Urine Appearance Urine pH Ur Specific [place] Urine Protein Urine Ketones Urine Blood Urine Nitrate Urine Bilirubin Urine Urobilinogen Ur Leukocyte Esterase Urine WBC (Auto) Urine RBC (Auto) Ur Squamous Epith Cells Urine Bacteria Urine Glucose [place] 11/10/18 11/11/18 11/11/18 22:41 08:57 09:51 WBC 4.8 RBC 4.33 Hgb 12.9 Hct 38 MCV 89 MCH 30 MCHC 34 RDW 16 H Plt Count 150 MPV 8.1 Neut % (Auto) 67.3 Lymph % (Auto) 20.0 [place] % (Auto) 8.3 Eos % (Auto) 4.0 Baso % (Auto) 0.4 Absolute Neuts (auto) 3.3 Absolute Lymphs (auto) 1.0 Absolute Monos (auto) 0.4 Absolute Eos (auto) 0.2 Absolute Basos (auto) 0.0 Absolute Nucleated RBC 0.0 Nucleated RBC % 0.0 ESR INR (Anticoag Therapy) APTT ABG pH ABG pCO2 ABG pO2 ABG HCO3 ABG O2 Saturation ABG Base Excess Sodium Potassium Chloride Carbon Dioxide Anion Gap BUN Creatinine Est GFR ( Amer) Est GFR (Non-Af Amer) BUN/Creatinine Ratio Glucose POC Glucose (mg/dL) 112 H 149 H Hemoglobin A1c Lactic Acid Calcium Total Bilirubin AST ALT Alkaline Phosphatase Troponin I C-Reactive Protein Total Protein Albumin Globulin Albumin/Globulin Ratio Triglycerides Cholesterol LDL Cholesterol HDL Cholesterol Urine Color Urine Appearance Urine pH Ur Specific [place] Urine Protein Urine Ketones Urine Blood Urine Nitrate Urine Bilirubin Urine Urobilinogen Ur Leukocyte Esterase Urine WBC (Auto) Urine RBC (Auto) Ur Squamous Epith Cells Urine Bacteria Urine Glucose [place] 11/11/18 11/11/18 11/11/18 09:51 12:11 12:16 WBC RBC Hgb Hct MCV MCH MCHC RDW Plt Count MPV Neut % (Auto) Lymph % (Auto) [place] % (Auto) Eos % (Auto) Baso % (Auto) Absolute Neuts (auto) Absolute Lymphs (auto) Absolute Monos (auto) Absolute Eos (auto) Absolute Basos (auto) Absolute Nucleated RBC Nucleated RBC % ESR INR (Anticoag Therapy) APTT ABG pH ABG pCO2 ABG pO2 ABG HCO3 ABG O2 Saturation ABG Base Excess Sodium 141 Potassium 3.8 Chloride 115 H Carbon Dioxide 21 L Anion Gap 5 BUN 17 Creatinine 1.35 H Est GFR ( Amer) 49.3 Est GFR (Non-Af Amer) 40.7 BUN/Creatinine Ratio 12.6 Glucose 177 H POC Glucose (mg/dL) 65 L Hemoglobin A1c Lactic Acid Calcium 9.1 Total Bilirubin AST ALT Alkaline Phosphatase Troponin I C-Reactive Protein Total Protein Albumin Globulin Albumin/Globulin Ratio Triglycerides Cholesterol LDL Cholesterol HDL Cholesterol Urine Color Urine Appearance Urine pH Ur Specific [place] Urine Protein Urine Ketones Urine Blood Urine Nitrate Urine Bilirubin Urine Urobilinogen Ur Leukocyte Esterase Urine WBC (Auto) Urine RBC (Auto) Ur Squamous Epith Cells Urine Bacteria Urine Glucose [place] 0.56 L 11/11/18 11/11/18 11/12/18 12:16 16:22 05:47 WBC RBC Hgb Hct MCV MCH MCHC RDW Plt Count MPV Neut % (Auto) Lymph % (Auto) [place] % (Auto) Eos % (Auto) Baso % (Auto) Absolute Neuts (auto) Absolute Lymphs (auto) Absolute Monos (auto) Absolute Eos (auto) Absolute Basos (auto) Absolute Nucleated RBC Nucleated RBC % ESR INR (Anticoag Therapy) APTT ABG pH ABG pCO2 ABG pO2 ABG HCO3 ABG O2 Saturation ABG Base Excess Sodium 140 Potassium 3.9 Chloride 116 H Carbon Dioxide 18 L Anion Gap 6 BUN 21 Creatinine 1.34 H Est GFR ( Amer) 49.7 Est GFR (Non-Af Amer) 41.1 BUN/Creatinine Ratio 15.7 Glucose 115 H POC Glucose (mg/dL) 74 Hemoglobin A1c 5.9 H Lactic Acid Calcium 9.1 Total Bilirubin AST ALT Alkaline Phosphatase Troponin I C-Reactive Protein Total Protein Albumin Globulin Albumin/Globulin Ratio Triglycerides Cholesterol LDL Cholesterol HDL Cholesterol Urine Color Urine Appearance Urine pH Ur Specific [place] Urine Protein Urine Ketones Urine Blood Urine Nitrate Urine Bilirubin Urine Urobilinogen Ur Leukocyte Esterase Urine WBC (Auto) Urine RBC (Auto) Ur Squamous Epith Cells Urine Bacteria Urine Glucose [place] 11/12/18 07:08 WBC RBC Hgb Hct MCV MCH MCHC RDW Plt Count MPV Neut % (Auto) Lymph % (Auto) [place] % (Auto) Eos % (Auto) Baso % (Auto) Absolute Neuts (auto) Absolute Lymphs (auto) Absolute Monos (auto) Absolute Eos (auto) Absolute Basos (auto) Absolute Nucleated RBC Nucleated RBC % ESR INR (Anticoag Therapy) APTT ABG pH ABG pCO2 ABG pO2 ABG HCO3 ABG O2 Saturation ABG Base Excess Sodium Potassium Chloride Carbon Dioxide Anion Gap BUN Creatinine Est GFR ( Amer) Est GFR (Non-Af Amer) BUN/Creatinine Ratio Glucose POC Glucose (mg/dL) 114 H Hemoglobin A1c Lactic Acid Calcium Total Bilirubin AST ALT Alkaline Phosphatase Troponin I C-Reactive Protein Total Protein Albumin Globulin Albumin/Globulin Ratio Triglycerides Cholesterol LDL Cholesterol HDL Cholesterol Urine Color Urine Appearance Urine pH Ur Specific [place] Urine Protein Urine Ketones Urine Blood Urine Nitrate Urine Bilirubin Urine Urobilinogen Ur Leukocyte Esterase Urine WBC (Auto) Urine RBC (Auto) Ur Squamous Epith Cells Urine Bacteria Urine Glucose [place]
[2018-11-12] MEDS: Atorvastatin* 80 MG TAB PO SCH (08:40)
[2018-11-12] MEDS: Multivitamins/Minerals TAB PO SCH (08:41)
[2018-11-12] MEDS: Sulfamethox/Trimethoprim DS 800/160* TAB PO SCH (08:41)
[2018-11-12] MEDS: FLUoxetine CAP* 20 MG PO SCH (08:41)
[2018-11-12] MEDS: Clopidogrel TAB* 75 MG PO SCH (08:41)
[2018-11-12] MEDS: Insulin GLARGINE(*) 1 UNITS UNIT SUBCUT SCH (08:41)
[2018-11-12] MEDS: Fluticasone NASAL SPRAY 50MCG* 16 gm SPRAY BTL BOTH NARES SCH (08:43)
[2018-11-12] MEDS ORDERED: Polyethylene Glycol 3350* 17 GM PACKET PO PRN (09:51)
[2018-11-12] MEDS ORDERED: Senna TAB 8.6 mg* TAB PO PRN (09:51)
[2018-11-12] MEDS ORDERED: Magnesium Hydroxide LIQ* 30 ML UDC PO PRN (09:51)
[2018-11-12] MEDS: NS 0.9% 1000 ML** 1,000 ML IV SCH (09:59)
[2018-11-12 11:21] VITALS: BP 125/73
[2018-11-12] MEDS: Enoxaparin(*) 40 MG/0.4 ML SYR SUBCUT SCH (14:57)
[2018-11-12] MEDS ORDERED: Docusate CAP* 100 MG PO SCH (21:00)
--- NOTE | 2018-11-13 00:58 | DS ---
CC: Dr. Bianchi* DISCHARGE SUMMARY: DATE OF ADMISSION: 11/09/18 DATE OF DISCHARGE: 11/12/18 PRIMARY CARE PROVIDER: Dr. Bianchi. ATTENDING PHYSICIAN: Dr. Weiner* (dictated by Eli Barajas NP). PRIMARY DIAGNOSES: 1. Headache. 2. Lethargy. 3. Slurred speech. 4. Urinary tract infection. 5. Diabetes. 6. History of transient ischemic attack. 7. Hypothyroid. 8. Schizoaffective disorder. CONSULTATIONS WHILE IN THE HOSPITAL: 1. Dr. Michael Ruggiero of neurology. 2. Dr. Dejon Garvey of psychiatry. STUDIES WHILE IN THE HOSPITAL: 1. Brain CT: Impression: No acute intracranial pathology. 2. Chest x-ray: Impression: Suboptimal inspiration with mild bibasilar atelectasis. 3. EKG: Impression: Sinus rhythm. 4. Brain MRI: Impression: No acute/significant intracranial abnormalities identified. 5. Repeat brain CT: Impression: No acute intracranial abnormality. 6. EEG: Impression: Normal EEG. DISCHARGE HOME MEDICATIONS: Continued Home Medications: 1. Albuterol inhalation 2 puffs q.4 hours p.r.n. 2. Symbicort 160/4.5 two puffs inhalation b.i.d. 3. Clopidogrel 75 mg p.o. daily. 4. Clozapine 300 mg p.o. at bedtime. 5. Diphenhydramine 25 mg p.o. daily p.r.n. for congestion. 6. Fluoxetine 40 mg p.o. q.a.m. 7. Fluconazole 2 sprays both nares daily. 8. Insulin glargine 20 units subcu daily. 9. Levothyroxine 88 mcg p.o. daily. 10. [place] carbonate 900 mg p.o. at bedtime. 11. Lurasidone 80 mg p.o. q.p.m. 12. Metformin 1000 mg p.o. b.i.d. 13. Multivitamin 1 tab p.o. daily. 14. Rosuvastatin 5 mg p.o. daily. 15. Temazepam 15 mg p.o. at bedtime. 16. Tramadol 50 mg p.o. q.6 hours p.r.n. for mild pain. Changed Home Medications: Topiramate was decreased from 100 mg p.o. q.a.m. and 50 mg p.o. at bedtime to only 100 mg p.o. at bedtime. [place] Medication: Bactrim DS one tablet p.o. b.i.d. x5 days. HISTORY OF PRESENT ILLNESS/HOSPITAL COURSE: Mrs. Urban is a 53-year-old female with a past medical history significant for diabetes, hyperlipidemia, intellectual disability, history of TIA who presents to the emergency department with slurred speech attributed to her low blood sugar. Please see history and physical dictated by Dr. Anca Hanks for complete summary of events leading up to hospitalization, but in short, while in the emergency department, the patient had a full workup including blood work that revealed a slightly low platelet count, glucose of 175, and LDL of 125. She also had urinalysis that was positive for nitrites and leukocyte esterase. Her NIHSS score was 1. The hospitalist team was asked to evaluate for admission. It should be mentioned that the patient was here in both June and August with complaints of slurred speech and she had a negative CVA workup. Given the patient's complaint of weakness with slurred speech, she was admitted to the telemetry floor. While in the telemetry floor, the patient had a CVA/TIA workup including brain CTA, MRI, and EEG, all of which were unremarkable. She was also evaluated by Neurology, who reported it was unlikely that the patient had stroke or ischemic disease. Neurology suggested that it was unlikely the patient had stroke or ischemic disease, but she should be admitted to observation due to her risk factors. While admitted, the patient had neuro checks, which were unremarkable. The patient had repeat vital signs, which were unremarkable, and the patient underwent further diagnostic studies including EEG, which was unremarkable. The patient's hospital stay was slightly complicated as on the morning of , she was mildly lethargic. Therefore, brain CT was repeated and it was unremarkable. In addition, ABG was obtained and revealed compensated respiratory alkalosis. Given this lethargy and the fact that labs revealed a low lithium level, Psychiatry was consulted for guidance with medical management. Dr. Garvey evaluated the patient and repeated a lithium level, which showed improvement. In addition, he suspected that the patient's lethargy could be due to Topamax. Therefore, he recommended decreasing to 100 mg at bedtime, which has been done. He also recommended close followup with the patient's outpatient psychiatrist, Dr. Holcomb. Finally, given the patient's urinalysis, from the emergency department, she was started on Bactrim due to suspected UTI. The patient's urine culture did grow E. coli with greater than 100,000 colony count. The patient has been on Bactrim and tolerated it well while here in the hospital. The patient will be discharged on Bactrim. The patient is stable for discharge home. REVIEW OF SYSTEMS: The patient reports mild headache. She reports this is baseline for her. The patient denies slurred speech, weakness, blurred vision, dizziness, fever, chills, shortness of breath, chest pain, or palpitations. PHYSICAL EXAMINATION: Vital Signs: Temperature 98.8, HR 88, RR 20, O2 saturation 95% on room air, BP 125/73. General: Mrs. Urban is a 53-year-old female who is lying in bed. Appears to be in no acute distress. Appears stated age. HEENT: EOMs intact. PERRLA. Oral mucosa is moist without lesion. Posterior oropharynx is clear. Neck: Supple. No lymphadenopathy. Cardiac: S1 and S2 present. Regular rate and rhythm. No murmurs, rubs, or gallops. Respiratory: Lungs are clear to auscultation. No wheezes, rhonchi, rales, or rubs. Good aeration. No accessory muscle use. Symmetrical chest expansion. Abdomen: Soft and nontender. Bowel sounds are normoactive. Extremities: No edema. No clubbing or cyanosis. Pedal pulses are 2+ bilaterally. Musculoskeletal: No pain or deformities. Skin: Grossly intact. Neuro: Cranial nerves II through XII are grossly intact. Coordination intact. Sensation intact. No drift. Strength is 5/5 in the upper and lower extremities. LABORATORY DATA: WBC 4.8, hemoglobin 12.9, hematocrit 38, platelets 150. Sodium 140, potassium 3.9, chloride 116, carbon dioxide 18, BUN 21, creatinine 1.34. [place] 0.56. DISCHARGE PLAN/FOLLOWUP: 1. Headache: The patient reports headache today and yesterday. She reported yesterday that headaches were after eating sugary foods. She reports headaches are accompanied by increase in thirst. The patient was visited by Nutrition given her report of dietary choices and history of diabetes. The patient had neurology workup that was unremarkable. The patient should follow up with neurology in 6 to 8 weeks. Discussed Tylenol for headache, increasing hydration, and improving diet. 2. Lethargy: The patient had lethargy during this admission and had ABGs that revealed compensatory respiratory alkalosis and had a repeat CT, which was unremarkable. We suspect this lethargy was due to medications; therefore, her Topamax was decreased. The patient should continue Topamax 100 mg at bedtime only. 3. Slurred speech: This is the reason why the patient presented to the emergency room. The patient has had neuro checks that were unremarkable. The patient has had a neurology workup, which was unremarkable. Neurology recommends good lipid, glucose and BP control. The patient should continue aspirin and Plavix and increase dose of atorvastatin. The patient should follow up with Olayinka Vargas NP in 6 to 8 weeks. 4. UTI: As mentioned in the HPI, the patient's urine grew greater than 100, 000 colonies E. coli. The patient should continue Bactrim. 5. Diabetes: The patient was visited by Nutrition given report of headaches after eating high sugary food. The patient's hemoglobin A1c is 5.9. The patient should continue her metformin and home glargine. 6. History of TIA: The patient should increase atorvastatin and continue aspirin and Plavix. The patient should follow up with Olayinka Vargas NP, with [facility] in 6 to 8 weeks. 7. Hypothyroid. The patient should continue her levothyroxine. 8. Schizoaffective disorder: As mentioned in the HPI, the patient was evaluated by Psychiatry and they did not feel it was necessary to increase her lithium dose as the repeat level was improving. They did recommend decreasing Topamax, which has been done. The patient should continue her clonazepam, lithium, Latuda, temazepam, and fluoxetine. The patient should follow up with Dr. Holcomb next week. 9. Elevated creatinine: The patient has elevated creatinine at 1.34. This was close to her baseline. Either way, I have recommended that she follow up with her primary care in 1 week for a repeat BMP. I have also encouraged the patient to increase hydration. 10. Followup: The patient should follow up with Dr. Holcomb next week. The patient should follow up with her primary care early next week. The patient should follow up with Olayinka Vargas from neurology in 6 to 8 weeks. 11. Home care: Please see social work notes in chart, but it should be mentioned we have offered the patient multiple home and community services and she has refused all. 12. Education: The patient was educated on signs and symptoms of new or worsening condition and when to return to the emergency room. The patient stated understanding. TIME SPENT: Approximately 35 minutes were spent on this discharge, greater than half that time was spent [id number] with the patient discussing discharge plan and instructions. This is a summarized report of a complex medical history and hospital stay. For further details, please see the entire medical record. PLAN: This plan was discussed with my attending, Dr. Weiner, who is in agreement with my plan of care. Reviewed by ELI BARAJAS NP 11/24/18 @ 0913 [id number]/[facility] #: [id number] [place]
== END 2018-11-12 15:12 | disposition home or self-care (01) | DRG 92 ==
LOC: ED 09:01 → MEDTELE 14:18 → OBSVTOIN 11-11 17:30
PROVIDERS: ADMIT Hospitalist; ATTEND Hospitalist
PROC: 4A00X4Z Measurement of Central Nervous Electrical Activity, External Approach (ICD-10-PCS; principal; 2018-11-11)
DX: R47.81 Slurred speech (principal); N39.0 Urinary tract infection, site not specified; E87.3 Alkalosis; E78.5 Hyperlipidemia, unspecified; E03.9 Hypothyroidism, unspecified; J45.909 Unspecified asthma, uncomplicated; F79 Unspecified intellectual disabilities; F25.0 Schizoaffective disorder, bipolar type; F50.81 Binge eating disorder; R51 Headache; I65.21 Occlusion and stenosis of right carotid artery; R53.83 Other fatigue; B96.20 Unspecified Escherichia coli [E. coli] as the cause of diseases classified elsewhere; E78.00 Pure hypercholesterolemia, unspecified; R40.2362 Coma scale, best motor response, obeys commands, at arrival to emergency department; R40.2142 Coma scale, eyes open, spontaneous, at arrival to emergency department; R29.701 NIHSS score 1; E11.649 Type 2 diabetes mellitus with hypoglycemia without coma; R94.4 Abnormal results of kidney function studies; R40.2252 Coma scale, best verbal response, oriented, at arrival to emergency department; Z86.73 Personal history of transient ischemic attack (TIA), and cerebral infarction without residual deficits; Z86.718 Personal history of other venous thrombosis and embolism; Z88.6 Allergy status to analgesic agent; Z88.1 Allergy status to other antibiotic agents; Z88.0 Allergy status to penicillin; Z91.018 Allergy to other foods; Z82.49 Family history of ischemic heart disease and other diseases of the circulatory system; Z83.3 Family history of diabetes mellitus; Z68.36 Body mass index [BMI] 36.0-36.9, adult; Z91.5 Personal history of self-harm; Z98.51 Tubal ligation status; Z56.0 Unemployment, unspecified; Z79.02 Long term (current) use of antithrombotics/antiplatelets; Z79.4 Long term (current) use of insulin
CPT/HCPCS: 36415; 36600; 70450; 70551; 71045; 80048; 80053; 80061; 80178; 81003; 81015; 82803; 83036; 83605; 84484; 85025; 85610; 85652; 85730; 86140; 87077; 87086; 87186; 93005; 94640; 95816; 99285; A9270-GY; G0378; J1650

== ENCOUNTER 2019-01-29 14:58 | Emergency (ER) | payer MEDICARE, MEDICAID ==
[2019-01-29 15:23] VITALS: BP 120/72
--- NOTE | 2019-01-29 15:35 | UC ---
Lower Extremity/Ankle HPI - HPI Summary HPI Summary: patient noticed pain and a "sore" on R foot yesterday. denies any certain injury but foot painful - History of Current Complaint Chief Complaint: UCLowerExtremity Stated Complaint: FOOT PAIN Time Seen by Provider: 01/29/19 15:27 Hx Obtained From: Patient Hx Last Menstrual Period: april 29 ?: No Onset/Duration: Sudden Onset Severity Initially: Moderate Severity Currently: Moderate Pain Intensity: 8 Aggravating Factor(s): Standing, Other - touching sore Alleviating Factor(s): Rest, Elevation Able to Bear Weight: Yes - Allergies/Home Medications Allergies/Adverse Reactions: Allergies Allergy/AdvReac Type Severity Reaction Status Date / Time aspirin Allergy Unknown Verified 01/29/19 15:23 Reaction Details Cephalosporins Allergy Rash Verified 01/29/19 15:23 orange Allergy Swelling Verified 01/29/19 15:23 orange juice Allergy Swelling Verified 01/29/19 15:23 amoxicillin AdvReac Nausea And Verified 01/29/19 15:23 Vomiting Tetracyclines AdvReac Nausea And Verified 01/29/19 15:23 Vomiting PMH/Surg Hx/FS Hx/Imm Hx Previously Healthy: Yes Endocrine History: Diabetes, Dyslipidemia Respiratory History: Asthma Psychological History: Anxiety, Bipolar Disorder, Schizophrenia Other History Of: Negative For: HIV, Hepatitis B, Hepatitis C, Anticoagulant Therapy - Surgical History Surgical History: Yes Surgery Procedure, Year, and Place: tubal ligation 1985 - Family History Known Family History: Positive: Cardiac Disease, Hypertension, Diabetes - Social History Occupation: Disabled Lives: Alone Alcohol Use: None Substance Use Type: None Smoking Status (MU): Never Smoked Tobacco Amount Used/How Often: states that she smoked one cigarette when she was 16 yrs. old Have You Smoked in the Last Year: No - Immunization History Most Recent Influenza Vaccination: this flu season (5467-1648) Most Recent Pneumonia Vaccination: 07/29/18 Review of Systems All Other Systems Reviewed And Are Negative: Yes Constitutional: Positive: Negative Skin: Positive: Other - R foot wound Respiratory: Positive: Negative Cardiovascular: Positive: Negative Musculoskeletal: Positive: Other: - R foot pain Neurological: Positive: Negative Is Patient Immunocompromised?: No Physical Exam Triage Information Reviewed: Yes Appearance: Well-Appearing, No Pain Distress, Obese Vital Signs: Initial Vital Signs Temp 98.5 F 01/29/19 15:18 Pulse 56 01/29/19 15:18 Resp 18 01/29/19 15:18 BP 120/72 01/29/19 15:18 Pulse Ox 99 01/29/19 15:18 Vital Signs Reviewed: Yes Respiratory Exam: Normal Respiratory: Positive: Lungs clear Cardiovascular Exam: Normal Cardiovascular: Positive: RRR Musculoskeletal Exam: Normal Musculoskeletal: Positive: Strength Intact, ROM Intact, Other: - swelling top of R foot Neurological Exam: Normal Psychological Exam: Normal Skin Exam: Other - superficial non-draining abrasions R lateral foot Lower Extremity Course/Dx - Differential Dx/Diagnosis Differential Diagnosis/HQI/PQRI: Cellulitis, Fracture (Closed), Strain Provider Diagnosis: Abrasion foot/toe Discharge ED - Sign-Out/Discharge Documenting (check all that apply): Patient Departure All imaging exams completed and their final reports reviewed: No - Discharge Plan Condition: Good Disposition: HOME Prescriptions: Mupirocin 2% OINT* [Bactroban 2 % Oint*] 1 applic TOPICAL BID #1 tube Patient Education Materials: Abrasion (ED) Referrals: Jason Bianchi MD [Primary Care Provider] - 2 Days (recheck foot) Additional Instructions: elevate your feet as much as possible drink plenty of water use antibiotic ointment on abrasion as rx'd - Billing Disposition and Condition Condition: GOOD Disposition: Home - Attestation Statements Provider Attestation: Per institutional requirements, I have reviewed the chart, however, I was not consulted specifically or made aware of this patient by the midlevel provider. I did not personally evaluate, interact with , or disposition this patient.
--- NOTE | 2019-01-30 13:59 | UC ---
- Progress Note Progress Note: wet read correct Course/Dx - Diagnoses Provider Diagnoses: Abrasion foot/toe Discharge ED - Sign-Out/Discharge Documenting (check all that apply): Post-Discharge Follow Up All imaging exams completed and their final reports reviewed: Yes - Discharge Plan Condition: Good Disposition: HOME Prescriptions: Mupirocin 2% OINT* [Bactroban 2 % Oint*] 1 applic TOPICAL BID #1 tube Patient Education Materials: Abrasion (ED) Referrals: Jason Bianchi MD [Primary Care Provider] - 2 Days (recheck foot) Additional Instructions: elevate your feet as much as possible drink plenty of water use antibiotic ointment on abrasion as rx'd - Billing Disposition and Condition Condition: GOOD Disposition: Home
== END 2019-01-29 16:21 | disposition home or self-care (01) ==
LOC: UCEAST 14:58
DX: S90.414A Abrasion, right lesser toe(s), initial encounter (principal); E11.9 Type 2 diabetes mellitus without complications; J45.909 Unspecified asthma, uncomplicated; F20.9 Schizophrenia, unspecified; Z88.0 Allergy status to penicillin; Z88.1 Allergy status to other antibiotic agents; Z88.6 Allergy status to analgesic agent; Z91.018 Allergy to other foods; X58.XXXA Exposure to other specified factors, initial encounter; Y92.9 Unspecified place or not applicable
CPT/HCPCS: 99212; G0463

== ENCOUNTER 2019-02-18 17:47 | Inpatient (IN) | payer MEDICARE, MEDICAID ==
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
[2019-02-18] MEDS ORDERED: LORazepam TAB(*) 1 MG PO ONE (18:33)
[2019-02-18] MEDS ORDERED: Haloperidol TAB* 5 MG PO ONE (18:33)
[2019-02-18 19:58] LABS: Urine Appearance Cloudy; Urine Bilirubin Negative (Negative); Urine Blood 1+ (Negative); Urine Color Yellow; Urine Glucose Negative (Negative); Urine Ketones Negative (Negative); Urine Nitrite Negative (Negative); Urine Protein Negative (Negative); Urine Urobilinogen Negative (Negative)
[2019-02-18 20:02] LABS: Urine Bacteria 1+ (Absent); Urine Red Blood Cell Trace(0-2/hpf) (Absent); Urine Squamous Epithelial Cell Present (Absent); Urine White Blood Cell Absent (Absent)
[2019-02-18 20:35] LABS: Urine Benzodiazepine Screen None Detected (None Detect); Urine Opiates Screen None Detected (None Detect)
[2019-02-18 21:12] LABS: ABS Eosinophils 0.1 10^3/ul (0-0.6); ABS Lymphocytes 1.2 10^3/ul (1.0-4.8); ABS Monocytes 0.4 10^3/ul (0-0.8); ABS Neutrophils 4.2 10^3/ul (1.5-7.7); Eosinophil % 1.6 %; Hematocrit 39 % (35-47); Hemoglobin 13.3 g/dL (12.0-16.0); Lymphocyte % 20.6 %; Mean Corpuscular HGB Conc 35 g/dL (31-36); Mean Corpuscular Hemoglobin 30 pg (27-31); Mean Corpuscular Volume 87 fL (80-97); Mean Platelet Volume 8.2 fL (7.4-10.4); Nucleated Red Blood Cells % 0.1; Platelet Count 172 10^3/uL (150-450); Red Cell Distribution Width 14 % (10-15)
[2019-02-18 21:28] LABS: ALT 16 U/L (7-52); AST 15 U/L (13-39); Acetaminophen < 15 mcg/mL; Albumin/Globulin Ratio 1.6 (1-3); Alcohol < 10 mg/dL (<10); Alkaline Phosphatase 90 U/L (34-104); Anion Gap 10 mmol/L (2-11); BUN/Creatinine Ratio 17.9 (8-20); Blood Urea Nitrogen 17 mg/dL (6-24); CO2 Carbon Dioxide 21 mmol/L (22-32); Calcium 9.3 mg/dL (8.6-10.3); Chloride 108 mmol/L (101-111); EGFR African American 73.6 (>60); EGFR Non-African American 60.9 (>60); Globulin 2.5 g/dL (2-4); Glucose 134 mg/dL (70-100); Potassium 3.4 mmol/L (3.5-5.0); Salicylate < 2.50 mg/dL (<30); Sodium 139 mmol/L (135-145); Total Protein 6.5 g/dL (6.4-8.9)
[2019-02-18 21:44] LABS: TSH (Thyroid Stimulating Horm) 2.76 mcIU/mL (0.34-5.60)
--- NOTE | 2019-02-18 23:07 | ED ---
Progress - Progress Note Progress Note: Patient is received as a sign-out from Dr. Mccormick at 2200 02/18/19 shift end pending MHE of this mental health patient. 2258 - Per human factors scientist Viky, patient's case has been reviewed by psychiatrist Dr. Winslow, patient will be a voluntary [place] [facility] [place] - Consult/PCP Time Called: 18:45 Re-Evaluation - Re-Evaluation First Eval Re-Evaluation Time: 16:30 Comment: Patient is medically clear for mental health evaluation. Course/Dx - Diagnoses Provider Diagnoses: Suicidal ideation - Provider Notifications Discussed Care Of Patient With: Parrish Winslow Time Discussed With Above Provider: 22:58 Instructed by Provider To: Other - Per human factors scientist Viky, patient's case has been reviewed by psychiatrist Dr. Winslow, patient will be a voluntary admission to [facility] [place]. Discharge ED - Sign-Out/Discharge Documenting (check all that apply): Patient Departure - admit - Discharge Plan Condition: Stable Disposition: [place]CHIATRIC FAC[place] - Billing Disposition and Condition Condition: STABLE Disposition: Psychiatric Facility [facility] - Attestation Statements Document Initiated by Scribe: Yes Documenting Scribe: BERKLEY SOFIA Provider For Whom Marbinibe is Documenting (Include Credential): JORGE ROPER MD Scribe Attestation: I, BERKLEY SOFIA, scribed for JORGE ROPER MD on 02/19/19 at 0626. Scribe Documentation Reviewed: Yes Provider Attestation: The documentation as recorded by the BERKLEY boss accurately reflects the service I personally performed and the decisions made by me, JORGE ROPER MD Status of Scribe Document: Viewed
[2019-02-19] MEDS ORDERED: diPHENhydraMINE PO* 25 MG PO PRN (01:09)
[2019-02-19] MEDS ORDERED: Albuterol HFA INHALER* 8 gm MDI INH PRN (01:12)
[2019-02-19] MEDS: traMADol TAB* 50 MG PO PRN (05:13)
[2019-02-19] MEDS: Levothyroxine TAB* 88 MCG TAB PO SCH (05:13)
[2019-02-19] MEDS: Insulin GLARGINE(*) 1 UNITS UNIT SUBCUT SCH (07:58)
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
[2019-02-19 08:24] LABS: Cholesterol 214 mg/dL; HDL Cholesterol 44.6 mg/dL; LDL Cholesterol 145 mg/dL; Triglycerides 121 mg/dL
[2019-02-19] MEDS: Mometasone/Formoter 200/5 MDI INH SCH ×2 (10:11→20:35)
[2019-02-19] MEDS: Fluticasone NASAL SPRAY 50MCG* 16 gm SPRAY BTL BOTH NARES SCH (10:11)
[2019-02-19] MEDS: FLUoxetine CAP* 20 MG PO SCH (10:12)
[2019-02-19] MEDS: Lurasidone(*) 80 MG TAB PO SCH (10:12)
[2019-02-19] MEDS: Atorvastatin* 10 MG TAB PO SCH (10:13)
[2019-02-19] MEDS: Vitamin THERAPEUTIC TAB PO SCH (10:13)
[2019-02-19] MEDS: metFORMIN* 1,000 MG TAB PO SCH ×2 (10:13→20:13)
[2019-02-19] MEDS: Clopidogrel TAB* 75 MG PO SCH (10:15)
[2019-02-19] MEDS: Acetaminophen TAB* 325 MG PO PRN (16:42)
[2019-02-19] MEDS: Temazepam CAP* 15 MG PO SCH (20:12)
[2019-02-19] MEDS: Lithium Carbonate ER* 450 MG TAB.ER PO SCH (20:12)
[2019-02-19] MEDS: CloZAPine TAB* 100 MG TAB PO SCH (20:12)
[2019-02-19] MEDS: Topiramate TAB(*) 100 MG PO SCH (20:13)
[2019-02-20] MEDS: Levothyroxine TAB* 88 MCG TAB PO SCH (07:35)
[2019-02-20] MEDS: Mometasone/Formoter 200/5 MDI INH SCH ×2 (09:31→21:13)
[2019-02-20] MEDS: Fluticasone NASAL SPRAY 50MCG* 16 gm SPRAY BTL BOTH NARES SCH (09:31)
[2019-02-20] MEDS: FLUoxetine CAP* 20 MG PO SCH (09:32)
[2019-02-20] MEDS: Vitamin THERAPEUTIC TAB PO SCH (09:32)
[2019-02-20] MEDS: Atorvastatin* 10 MG TAB PO SCH (09:32)
[2019-02-20] MEDS: Clopidogrel TAB* 75 MG PO SCH (09:32)
[2019-02-20] MEDS: Lurasidone(*) 80 MG TAB PO SCH (09:32)
[2019-02-20] MEDS: metFORMIN* 1,000 MG TAB PO SCH ×2 (09:33→21:04)
[2019-02-20] MEDS: Insulin GLARGINE(*) 1 UNITS UNIT SUBCUT SCH (09:36)
[2019-02-20] MEDS: Lithium Carbonate ER* 450 MG TAB.ER PO SCH (21:04)
[2019-02-20] MEDS: Topiramate TAB(*) 100 MG PO SCH (21:04)
[2019-02-20] MEDS: Temazepam CAP* 15 MG PO SCH (21:05)
[2019-02-20] MEDS: CloZAPine TAB* 100 MG TAB PO SCH (21:12)
[2019-02-21] MEDS: Al Hydrox/Mg Hydrox/Simet LIQ* 30 ML UDC PO PRN ×2 (09:45→21:37)
[2019-02-21] MEDS: Vitamin THERAPEUTIC TAB PO SCH (10:08)
[2019-02-21] MEDS: Atorvastatin* 10 MG TAB PO SCH (10:08)
[2019-02-21] MEDS: metFORMIN* 1,000 MG TAB PO SCH ×2 (10:08→21:35)
[2019-02-21] MEDS: Lurasidone(*) 80 MG TAB PO SCH (10:08)
[2019-02-21] MEDS: Clopidogrel TAB* 75 MG PO SCH (10:08)
[2019-02-21] MEDS: FLUoxetine CAP* 20 MG PO SCH (10:09)
[2019-02-21] MEDS: Levothyroxine TAB* 88 MCG TAB PO SCH (10:09)
[2019-02-21] MEDS: Mometasone/Formoter 200/5 MDI INH SCH ×2 (10:10→21:38)
[2019-02-21] MEDS: Fluticasone NASAL SPRAY 50MCG* 16 gm SPRAY BTL BOTH NARES SCH (10:10)
[2019-02-21] MEDS: Insulin GLARGINE(*) 1 UNITS UNIT SUBCUT SCH (10:13)
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
[2019-02-21] MEDS: Acetaminophen TAB* 325 MG PO PRN (15:25)
[2019-02-21 17:20] LABS: Lithium < 0.10 mmol/L (0.6-1.2)
[2019-02-21] MEDS: Temazepam CAP* 15 MG PO SCH (21:34)
[2019-02-21] MEDS: Lithium Carbonate ER* 450 MG TAB.ER PO SCH (21:35)
[2019-02-21] MEDS: CloZAPine TAB* 100 MG TAB PO SCH (21:35)
[2019-02-21] MEDS: Topiramate TAB(*) 100 MG PO SCH (21:35)
[2019-02-22] MEDS: Acetaminophen TAB* 325 MG PO PRN (07:28)
[2019-02-22] MEDS ORDERED: Loperamide CAP* 2 MG PO ONE (08:14)
[2019-02-22] MEDS: Mometasone/Formoter 200/5 MDI INH SCH ×2 (09:20→21:38)
[2019-02-22] MEDS: Fluticasone NASAL SPRAY 50MCG* 16 gm SPRAY BTL BOTH NARES SCH (09:20)
[2019-02-22] MEDS: Lurasidone(*) 80 MG TAB PO SCH (09:22)
[2019-02-22] MEDS: FLUoxetine CAP* 20 MG PO SCH (09:22)
[2019-02-22] MEDS: Clopidogrel TAB* 75 MG PO SCH (09:22)
[2019-02-22] MEDS: Atorvastatin* 10 MG TAB PO SCH (09:23)
[2019-02-22] MEDS: metFORMIN* 1,000 MG TAB PO SCH ×2 (09:23→21:37)
[2019-02-22] MEDS: Vitamin THERAPEUTIC TAB PO SCH (09:23)
[2019-02-22] MEDS: Levothyroxine TAB* 88 MCG TAB PO SCH (09:24)
[2019-02-22] MEDS: Insulin GLARGINE(*) 1 UNITS UNIT SUBCUT SCH (09:27)
--- NOTE | 2019-02-22 12:49 | PN ---
Subjective - Subjective Date of Service: 02/22/19 Service Type: [id number] Hosp care 35 min high complexity Subjective: Patient expressed that she was no longer having flashbacks, patient reported that she would like to get back to work at [employer], she made jokes and was laughing today. She expressed that she is ready for discharge and feels better. Objective - General Observations Appearance: Disheveled Appears Stated Age: Yes Stature: Overweight Posture: Slumped Eye Contact: Average Behavior/Activity: WNL - Interaction Observations Attitude Towards Examiner: Cooperative Stated Mood: Euthymic Affect: Full Speech Pattern/Tone: Clear Thought Process: Coherent Perception: WNL Thought Content: WNL Hallucination Type: None Delusion Type: None - Cognitive Function Orientation: A&O x 4 Level of Consciousness: Awake - Medication Compliance Cooperative with Inpatient Medication Regimen: Yes - Group Participation Participates in Group Activities: No Assessment - Assessment Merits Inpatient Hospitalization: For Immediate Safety Clinical Impression: 54 year old female with history of PTSD and schizoaffective disorder came to the hospital by EMS with flashbacks and suicidal ideation Plan - Plan Treatment Plan: Name: JENNIFFER MILAN Birthdate: 1965 [id number] #Q30 minute observation with staff pass # The patient requires psychiatric inpatient admission at this time to assure safety, receive treatment and work toward stabilization. # Obtain collateral information once release is signed. # Collaboration with Metal Model Builder # [place] level # On Clozapine --> ANC 4.2 and WBC 6.0 #Goals before discharge include: To eliminate/ reduce suicidal ideation Tentative Discharge: Tomorrow Continued Medication Management: Continue Outpt Medication Medications: Current Medications Acetaminophen (Tylenol Tab*) 650 mg PO Q4H PRN PRN Reason: PAIN or TEMP > 101 F Last Admin: 02/22/19 07:28 Dose: 650 mg Al Hydrox/Mg Hydrox/Simethicone (Maalox Plus*) 30 ml PO Q4H PRN PRN Reason: INDIGESTION Last Admin: 02/21/19 21:37 Dose: 30 ml Albuterol (Ventolin Hfa Inhaler*) 2 puff INH Q4H PRN PRN Reason: SHORTNESS OF BREATH Last Admin: 02/19/19 10:16 Dose: 2 puff Atorvastatin Calcium (Lipitor*) 10 mg PO DAILY [facility] Last Admin: 02/22/19 09:23 Dose: 10 mg Clopidogrel Bisulfate (Plavix Tab*) 75 mg PO DAILY [facility] Last Admin: 02/22/19 09:22 Dose: 75 mg Clozapine (Clozapine Tab*) 300 mg PO BEDTIME [facility] Last Admin: 02/21/19 21:35 Dose: 300 mg Diphenhydramine HCl (Benadryl Po*) 25 mg PO DAILY PRN PRN Reason: Congestion Last Admin: 02/19/19 05:13 Dose: 25 mg Fluoxetine HCl (Prozac Cap*) 40 mg PO DAILY [facility] Last Admin: 02/22/19 09:22 Dose: 40 mg Fluticasone Propionate (Flonase Nasal [place] 50mcg*) 2 spray BOTH NARES DAILY [facility] Last Admin: 02/22/19 09:20 Dose: 2 spray Insulin Glargine (Lantus(*)) 20 units SUBCUT DAILY [facility] Last Admin: 02/22/19 09:27 Dose: 20 units Levothyroxine Sodium (Synthroid Tab*) 88 mcg PO DAILY@0600 [facility] Last Admin: 02/22/19 09:24 Dose: 88 mcg [place] Carbonate ([place] Carbonate Er Tab*) 900 mg PO BEDTIME [facility] Last Admin: 02/21/19 21:35 Dose: 900 mg Lurasidone HCl (Latuda) 80 mg PO DAILY [facility] Last Admin: 02/22/19 09:22 Dose: 80 mg Metformin HCl (Glucophage*) 1,000 mg PO BID [facility] Last Admin: 02/22/19 09:23 Dose: 1,000 mg Mometasone Furoate/Formoterol Fumar (Dulera 200/5 Mdi*) 2 puff INH BID [facility] Last Admin: 02/22/19 09:20 Dose: 2 puff Multivitamins (Theragran Tab*) 1 tab PO DAILY [facility] Last Admin: 02/22/19 09:23 Dose: 1 tab Temazepam (Restoril Cap*) 15 mg PO BEDTIME [facility] Last Admin: 02/21/19 21:34 Dose: 15 mg Topiramate (Topamax(*)) 100 mg PO BEDTIME [facility] Last Admin: 02/21/19 21:35 Dose: 100 mg Tramadol HCl (Ultram*) 50 mg PO Q6H PRN PRN Reason: PAIN - MILD Last Admin: 02/19/19 05:13 Dose: 50 mg - Discharge Plan Discharge Plan: Inpatient Hospitalization
[2019-02-22] MEDS: traMADol TAB* 50 MG PO PRN (16:24)
[2019-02-22] MEDS: CloZAPine TAB* 100 MG TAB PO SCH (21:36)
[2019-02-22] MEDS: Lithium Carbonate ER* 450 MG TAB.ER PO SCH (21:37)
[2019-02-22] MEDS: Topiramate TAB(*) 100 MG PO SCH (21:38)
[2019-02-22] MEDS: Temazepam CAP* 15 MG PO SCH (21:38)
[2019-02-23] MEDS: Levothyroxine TAB* 88 MCG TAB PO SCH (06:35)
[2019-02-23 09:30] VITALS: BP 94/50
[2019-02-23] MEDS: Clopidogrel TAB* 75 MG PO SCH (09:49)
[2019-02-23] MEDS: metFORMIN* 1,000 MG TAB PO SCH (09:49)
[2019-02-23] MEDS: Atorvastatin* 10 MG TAB PO SCH (09:49)
[2019-02-23] MEDS: Vitamin THERAPEUTIC TAB PO SCH (09:49)
[2019-02-23] MEDS: FLUoxetine CAP* 20 MG PO SCH (09:49)
[2019-02-23] MEDS: Fluticasone NASAL SPRAY 50MCG* 16 gm SPRAY BTL BOTH NARES SCH (09:50)
[2019-02-23] MEDS: Lurasidone(*) 80 MG TAB PO SCH (09:50)
[2019-02-23] MEDS: Insulin GLARGINE(*) 1 UNITS UNIT SUBCUT SCH (09:52)
[2019-02-23] MEDS: Mometasone/Formoter 200/5 MDI INH SCH (09:54)
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
[2019-02-23] MEDS: traMADol TAB* 50 MG PO PRN (12:19)
[2019-02-23] MEDS: Al Hydrox/Mg Hydrox/Simet LIQ* 30 ML UDC PO PRN (12:19)
== END 2019-02-23 12:15 | disposition home or self-care (01) | DRG 885 ==
LOC: ED 17:47 → BSU 22:30
PROVIDERS: ADMIT Psychiatry & Neurology Psychiatry; ATTEND Psychiatry & Neurology Psychiatry
DX: F25.0 Schizoaffective disorder, bipolar type (principal); R45.851 Suicidal ideations; E66.9 Obesity, unspecified; E11.9 Type 2 diabetes mellitus without complications; E03.9 Hypothyroidism, unspecified; E78.5 Hyperlipidemia, unspecified; J45.909 Unspecified asthma, uncomplicated; R10.13 Epigastric pain; F43.10 Post-traumatic stress disorder, unspecified; E78.00 Pure hypercholesterolemia, unspecified; G43.909 Migraine, unspecified, not intractable, without status migrainosus; G89.29 Other chronic pain; M25.551 Pain in right hip; Z87.440 Personal history of urinary (tract) infections; Z88.6 Allergy status to analgesic agent; Z68.34 Body mass index [BMI] 34.0-34.9, adult; Z88.1 Allergy status to other antibiotic agents; Z88.0 Allergy status to penicillin; Z91.018 Allergy to other foods; Z91.5 Personal history of self-harm; Z79.02 Long term (current) use of antithrombotics/antiplatelets; Z79.4 Long term (current) use of insulin; Z79.890 Hormone replacement therapy; Z86.718 Personal history of other venous thrombosis and embolism; Z28.21 Immunization not carried out because of patient refusal
CPT/HCPCS: 36415; 80053; 80061; 80178; 80307; 80320; 80329; 81003; 81015; 83036; 84443; 85025; 87086; 99222; 99233; 99238; 99285; A9270-GY; G0480

== ENCOUNTER 2019-06-03 11:32 | Emergency (ER) | payer MEDICARE, MEDICAID ==
[2019-06-03 12:51] LABS: ABS Eosinophils 0.1 10^3/ul (0-0.6); ABS Lymphocytes 1.2 10^3/ul (1.0-4.8); ABS Monocytes 0.5 10^3/ul (0-0.8); ABS Neutrophils 2.2 10^3/ul (1.5-7.7); Eosinophil % 2.7 %; Hematocrit 40 % (35-47); Lymphocyte % 28.6 %; Mean Corpuscular HGB Conc 35 g/dL (31-36); Mean Corpuscular Hemoglobin 30 pg (27-31); Mean Corpuscular Volume 87 fL (80-97); Mean Platelet Volume 7.6 fL (7.4-10.4); Nucleated Red Blood Cells % 0.1; Platelet Count 174 10^3/uL (150-450); Red Blood Count 4.65 10^6 /uL (3.70-4.87); Red Cell Distribution Width 15 % (10-15); White Blood Count 4.1 10^3/uL (3.5-10.8)
[2019-06-03 13:13] LABS: Albumin 4.4 g/dL (3.2-5.2); Albumin/Globulin Ratio 1.8 (1-3); BUN/Creatinine Ratio 14.6 (8-20); C Reactive Protein 15.11 mg/L (<8.01); Calcium 9.8 mg/dL (8.6-10.3); EGFR African American 79.4 (>60); EGFR Non-African American 65.6 (>60); Globulin 2.4 g/dL (2-4); Total Bilirubin 0.4 mg/dL (0.2-1.0); Total Protein 6.8 g/dL (6.4-8.9)
[2019-06-03 13:27] LABS: Influenza A Molecular Negative (Negative); Influenza B Molecular Negative (Negative)
[2019-06-03 13:49] LABS: Urine Appearance Cloudy; Urine Bilirubin Negative (Negative); Urine Blood Negative (Negative); Urine Color Yellow; Urine Glucose Negative (Negative); Urine Ketones Negative (Negative); Urine Nitrite Negative (Negative); Urine Protein Negative (Negative); Urine Specific Gravity 1.014 (1.010-1.030); Urine Urobilinogen Negative (Negative)
--- NOTE | 2019-06-03 14:24 | ED ---
Respiratory - HPI Summary HPI Summary: 54 year old F presenting to [facility] with a chief complaint of coughing, congestion , a fever, blisters on her lips that started today, weakness, and chest discomfort secondary to her cough, since 5 days ago. The patient rates the pain 10/10 in severity. Symptoms aggravated by nothing. Symptoms alleviated by nothing. Patient denies vomiting, diarrhea, dysuria, or body aches. Patient reports that she returned from a day trip in [facility] 4 days ago. Medication list reviewed. Allergy list reviewed. Home Medications Medication Instructions Recorded Confirmed Type FLUoxetine CAP* [Prozac CAP*] 40 mg PO QAM #30 cap MDD 40 mg 03/18/17 02/18/19 Rx [place] [employer] TAB* 900 mg PO BEDTIME 07/24/17 02/18/19 History Temazepam CAP* [Restoril CAP*] 15 mg PO BEDTIME MDD 15 07/24/17 02/18/19 History metFORMIN* [Glucophage 1000 MG TAB 1,000 mg PO BID tab 10/27/17 02/18/19 Rx *] Rosuvastatin Calcium [Crestor] 5 mg PO DAILY 01/19/18 02/18/19 History Albuterol inh POWDER (NF) [Proair 2 puff INH Q4HR PRN 07/08/18 02/18/19 History Respiclick] Budesonide/Formote 160/4.5(NF) 2 puff INH BID 07/08/18 02/18/19 History [Symbicort 160/4.5 (NF)] CloZAPine TAB* 300 mg PO BEDTIME 07/08/18 02/18/19 History Fluticasone NASAL SPRAY 50MCG* 2 spray BOTH NARES DAILY 07/08/18 02/18/19 History [Flonase NASAL SPRAY 50MCG*] Insulin GLARGINE(*) [Lantus 100 20 units SUBCUT DAILY 07/08/18 02/18/19 History units/ml 10 ml VIAL (*)] Levothyroxine TAB* [Synthroid 88 88 mcg PO DAILY 07/08/18 02/18/19 History MCG TAB*] Lurasidone(*) [Latuda] 80 mg PO QPM 07/08/18 02/18/19 History Multivitamins/Minerals TAB* 1 tab PO DAILY 07/08/18 02/18/19 History [Theragran/minerals TAB*] Clopidogrel TAB* [Plavix TAB*] 75 mg PO DAILY 30 Days #30 tab 09/21/18 02/18/19 Rx diphenhydrAMINE HCL 25 mg PO DAILY PRN 11/09/18 02/18/19 History [Diphenhydramine HCl] traMADol TAB* [Ultram*] 50 mg PO Q6HR PRN 11/09/18 02/18/19 History Topiramate TAB(*) [Topamax 100 mg 100 mg PO BEDTIME tab 11/12/18 02/18/19 Rx tab] Mupirocin 2% OINT* [Bactroban 2 % 1 applic TOPICAL BID #1 tube 01/29/19 Rx Oint*] Albuterol HFA INHALER* [Ventolin 2 puff INH Q4H PRN mdi 02/23/19 Rx HFA Inhaler*] Atorvastatin* [Lipitor 10 MG*] 10 mg PO DAILY tab 02/23/19 Rx CloZAPine TAB* 300 mg PO BEDTIME tab 02/23/19 Rx Clopidogrel TAB* [Plavix TAB*] 75 mg PO DAILY #30 tab 02/23/19 Rx FLUoxetine CAP* [Prozac CAP*] 40 mg PO DAILY cap 02/23/19 Rx Fluticasone NASAL SPRAY 50MCG* 2 spray BOTH NARES DAILY btl 02/23/19 Rx [Flonase NASAL SPRAY 50MCG*] Insulin GLARGINE(*) [Lantus 100 20 units SUBCUT DAILY unit 02/23/19 Rx units/ml 10 ml VIAL (*)] Levothyroxine TAB* [Synthroid 88 88 mcg PO DAILY@0600 tab 02/23/19 Rx MCG TAB*] [place] [employer] ER TAB* 900 mg PO BEDTIME tab.er 02/23/19 Rx Lurasidone(*) [Latuda] 80 mg PO DAILY tab 02/23/19 Rx Mometasone/Formoter 200/5 MDI* 2 puff INH BID mdi 02/23/19 Rx [Dulera 200/5 MDI*] Temazepam CAP* [Restoril CAP*] 15 mg PO BEDTIME cap 02/23/19 Rx Topiramate TAB(*) [Topamax 100 mg 100 mg PO BEDTIME tab 02/23/19 Rx tab] diPHENhydraMINE PO* [Benadryl PO 25 mg PO DAILY PRN tab 02/23/19 Rx 25 MG TAB*] metFORMIN* [Glucophage 1000 MG TAB 1,000 mg PO BID tab 02/23/19 Rx *] traMADol TAB* [Ultram*] 50 mg PO Q6H PRN tab 02/23/19 Rx - History of Current Complaint Chief Complaint: EDUpperRespComplaint Stated Complaint: GENERAL ILLNESS PER PT Time Seen by Provider: 06/03/19 14:16 Hx Obtained From: Patient Onset/Duration: Lasting Days, Still Present Timing: Constant Current Severity: Severe Pain Intensity: 10 Aggravating Factor(s): Nothing Alleviating Factor(s): Nothing Associated Signs and Symptoms: Fever, Chest Pain with Cough, Nasal Congestion - Allergy/Home Medications Allergies/Adverse Reactions: Allergies Allergy/AdvReac Type Severity Reaction Status Date / Time aspirin Allergy Unknown Verified 06/03/19 11:45 Reaction Details Cephalosporins Allergy Rash Verified 06/03/19 11:45 orange Allergy Swelling Verified 06/03/19 11:45 amoxicillin AdvReac Nausea And Verified 06/03/19 11:45 Vomiting Tetracyclines AdvReac Nausea And Verified 06/03/19 11:45 Vomiting Home Medications: Home Medications [place] [employer] TAB* 900 mg PO BEDTIME 07/24/17 [History Confirmed 06/03/19] Rosuvastatin Calcium [Crestor] 5 mg PO DAILY 01/19/18 [History Confirmed ] Budesonide/Formote 160/4.5(NF) [Symbicort 160/4.5 (NF)] 2 puff INH BID 07/08/18 [History Confirmed 06/03/19] Fluticasone NASAL SPRAY 50MCG* [Flonase NASAL SPRAY 50MCG*] 2 spray BOTH NARES DAILY 07/08/18 [History Confirmed 06/03/19] Insulin GLARGINE(*) [Lantus 100 units/ml 10 ml VIAL (*)] 20 units SUBCUT DAILY 07/08/18 [History Confirmed 06/03/19] Multivitamins/Minerals TAB* [Theragran/minerals TAB*] 1 tab PO DAILY 07/08/18 [ History Confirmed 06/03/19] diphenhydrAMINE HCL [Diphenhydramine HCl] 25 mg PO DAILY PRN 11/09/18 [History Confirmed 06/03/19] Mupirocin 2% OINT* [Bactroban 2 % Oint*] 1 applic TOPICAL BID #1 tube 01/29/19 [ Rx Confirmed 06/03/19] Albuterol HFA INHALER* [Ventolin HFA Inhaler*] 2 puff INH Q4H PRN mdi 02/23/19 [Rx Confirmed 06/03/19] Atorvastatin* [Lipitor 10 MG*] 10 mg PO DAILY tab 02/23/19 [Rx Confirmed ] CloZAPine TAB* 300 mg PO BEDTIME tab 02/23/19 [Rx Confirmed 06/03/19] Clopidogrel TAB* [Plavix TAB*] 75 mg PO DAILY #30 tab 02/23/19 [Rx Confirmed 09/16] FLUoxetine CAP* [Prozac CAP*] 40 mg PO DAILY cap 02/23/19 [Rx Confirmed ] Levothyroxine TAB* [Synthroid 88 MCG TAB*] 88 mcg PO DAILY@0600 tab 02/23/19 [ Rx Confirmed 06/03/19] Lurasidone(*) [Latuda] 80 mg PO DAILY tab 02/23/19 [Rx Confirmed 06/03/19] Mometasone/Formoter 200/5 MDI* [Dulera 200/5 MDI*] 2 puff INH BID mdi 02/23/19 [Rx Confirmed 06/03/19] Temazepam CAP* [Restoril CAP*] 15 mg PO BEDTIME cap 02/23/19 [Rx Confirmed 09/16] Topiramate TAB(*) [Topamax 100 mg tab] 100 mg PO BEDTIME tab 02/23/19 [Rx Confirmed 06/03/19] metFORMIN* [Glucophage 1000 MG TAB *] 1,000 mg PO BID tab 02/23/19 [Rx Confirmed 06/03/19] traMADol TAB* [Ultram*] 50 mg PO Q6H PRN tab 02/23/19 [Rx Confirmed 06/03/19] Acyclovir OINT 5%(NF) [Zovirax Oint 5%(NF)] 1 applic TOPICAL .SIX TIMES A DAY # 1 oint 06/03/19 [Rx] PMH/Surg Hx/FS Hx/Imm Hx Endocrine/Hematology History: Reports: Hx Diabetes, Hx Thyroid Disease Denies: Hx Anticoagulant Therapy Cardiovascular History: Reports: Hx Deep Vein Thrombosis, Hx Hypercholesterolemia Denies: Hx Congestive Heart Failure, Hx Hypertension, Hx Myocardial Infarction, Hx Pacemaker/ICD Respiratory History: Reports: Hx Asthma Denies: Hx Chronic Obstructive Pulmonary Disease (COPD), Hx Lung Cancer, Hx Pneumonia, Hx Pulmonary Embolism GI History: Reports: Hx Ulcer History: Denies: Hx Dialysis, Hx Renal Disease Musculoskeletal History: Reports: Hx Back Problems Sensory History: Denies: Hx Contacts or Glasses, Hx Hearing Aid Opthamlomology History: Denies: Hx Contacts or Glasses Neurological History: Reports: Hx Headaches, Hx Migraine Denies: Hx Dementia, Hx Seizures, Hx Transient Ischemic Attacks (TIA) Psychiatric History: Reports: Hx Post Traumatic Stress Disorder, Hx Inpatient Treatment, Hx Community Mental Health Tx, Hx Schizophrenia, Hx Suicide Attempt Denies: Hx Anxiety, Hx Eating Disorder, Hx Depression, Hx Panic Disorder, Hx Bipolar Disorder, Hx of Violent Episodes Against Others - Cancer History Hx Chemotherapy: No Hx Radiation Therapy: No - Surgical History Surgery Procedure, Year, and Place: tubal ligation 1985 Infectious Disease History: No Infectious Disease History: Denies: Hx Hepatitis, Hx Human Immunodeficiency Virus (HIV), Traveled Outside the [place] in Last 30 Days - Family History Known Family History: Positive: Cardiac Disease, Hypertension, Diabetes - Social History Alcohol Use: None Hx Substance Use: No Substance Use Type: Reports: None Hx Tobacco Use: No Smoking Status (MU): Never Smoked Tobacco Amount Used/How Often: states that she smoked one cigarette when she was 16 yrs. old Have You Smoked in the Last Year: No Review of Systems Positive: Fever Positive: Other - Congestion Positive: Cough Negative: Vomiting, Diarrhea Negative: dysuria Negative: Myalgia Positive: Other - Blisters on her lips Positive: Weakness All Other Systems Reviewed And Are Negative: Yes Physical Exam - Summary Physical Exam Summary: Constitutional: Well-developed, Well-nourished, Alert. (-) Distressed Skin: Warm, Dry, multiple blistering lesions of lips noted, no tongue or intraoral lesions. HENT: Normocephalic; Atraumatic Eyes: Conjunctiva normal Neck: Musculoskeletal ROM normal neck. (-) JVD, (-) Stridor, (-) Tracheal deviation Cardio: Rhythm regular, rate normal, Heart sounds normal; Intact distal pulses; The pedal pulses are 2+ and symmetric. Radial pulses are 2+ and symmetric. (-) Murmur Pulmonary/Chest wall: Effort normal. (-) Respiratory distress, (-) Wheezes, (-) Rales Abd: Soft, (-) tenderness, (-) Distension, (-) Guarding, (-) Rebound Musculoskeletal: (-) Edema Lymph: (-) Cervical adenopathy Neuro: Alert, Oriented x3 Psych: Mood and affect Normal Triage Information Reviewed: Yes Vital Signs On Initial Exam: Initial Vitals Temp Pulse Resp BP Pulse Ox 97.9 F 74 16 131/72 99 06/03/19 11:42 06/03/19 11:42 06/03/19 11:42 06/03/19 11:42 06/03/19 11:42 Vital Signs Reviewed: Yes Procedures - Sedation Patient Received Moderate/Deep Sedation with Procedure: No Diagnostics - Vital Signs Vital Signs Temp Pulse Resp BP Pulse Ox 06/03/19 14:12 99.2 F 82 14 119/71 98 06/03/19 11:42 97.9 F 74 16 131/72 99 - Laboratory Lab Results: Lab Results 06/03/19 06/03/19 06/03/19 Range/Units 12:42 12:42 12:42 WBC 4.1 (3.5-10.8) 10^3/uL RBC 4.65 (3.70-4.87) 10^6 /uL Hgb 14.0 (12.0-16.0) g/dL Hct 40 (35-47) % MCV 87 (80-97) fL MCH 30 (27-31) pg MCHC 35 (31-36) g/dL RDW 15 (10-15) % Plt Count 174 (150-450) 10^3/uL MPV 7.6 (7.4-10.4) fL Neut % (Auto) 55.3 % Lymph % (Auto) 28.6 % Love % (Auto) 12.5 % Eos % (Auto) 2.7 % Baso % (Auto) 0.9 % Absolute Neuts (auto) 2.2 (1.5-7.7) 10^3/ul Absolute Lymphs (auto) 1.2 (1.0-4.8) 10^3/ul Absolute Monos (auto) 0.5 (0-0.8) 10^3/ul Absolute Eos (auto) 0.1 (0-0.6) 10^3/ul Absolute Basos (auto) 0.0 (0-0.2) 10^3/ul Absolute Nucleated RBC 0.0 10^3/ul Nucleated RBC % 0.1 Sodium 138 (135-145) mmol/L Potassium 4.0 (3.5-5.0) mmol/L Chloride 107 (101-111) mmol/L Carbon Dioxide 25 (22-32) mmol/L Anion Gap 6 (2-11) mmol/L BUN 13 (6-24) mg/dL Creatinine 0.89 (0.51-0.95) mg/dL Est GFR ( Amer) 79.4 (>60) Est GFR (Non-Af Amer) 65.6 (>60) BUN/Creatinine Ratio 14.6 (8-20) Glucose 122 H (70-100) mg/dL Lactic Acid 1.1 (0.5-2.0) mmol/L Calcium 9.8 (8.6-10.3) mg/dL Total Bilirubin 0.40 (0.2-1.0) mg/dL AST 13 (13-39) U/L ALT 15 (7-52) U/L Alkaline Phosphatase 92 (34-104) U/L C-Reactive Protein 15.11 H (<8.01) mg/L Total Protein 6.8 (6.4-8.9) g/dL Albumin 4.4 (3.2-5.2) g/dL Globulin 2.4 (2-4) g/dL Albumin/Globulin Ratio 1.8 (1-3) Urine Color Urine Appearance Urine pH (5-9) Ur Specific [place] (1.010-1.030) Urine Protein (Negative) Urine Ketones (Negative) Urine Blood (Negative) Urine Nitrate (Negative) Urine Bilirubin (Negative) Urine Urobilinogen (Negative) Ur Leukocyte Esterase (Negative) Urine Glucose (Negative) Urine Ascorbic Acid (Negative) Influenza A (Rapid) (Negative) Influenza B (Rapid) (Negative) 06/03/19 06/03/19 Range/Units 12:47 13:00 WBC (3.5-10.8) 10^3/uL RBC (3.70-4.87) 10^6 /uL Hgb (12.0-16.0) g/dL Hct (35-47) % MCV (80-97) fL MCH (27-31) pg MCHC (31-36) g/dL RDW (10-15) % Plt Count (150-450) 10^3/uL MPV (7.4-10.4) fL Neut % (Auto) % Lymph % (Auto) % Love % (Auto) % Eos % (Auto) % Baso % (Auto) % Absolute Neuts (auto) (1.5-7.7) 10^3/ul Absolute Lymphs (auto) (1.0-4.8) 10^3/ul Absolute Monos (auto) (0-0.8) 10^3/ul Absolute Eos (auto) (0-0.6) 10^3/ul Absolute Basos (auto) (0-0.2) 10^3/ul Absolute Nucleated RBC 10^3/ul Nucleated RBC % Sodium (135-145) mmol/L Potassium (3.5-5.0) mmol/L Chloride (101-111) mmol/L Carbon Dioxide (22-32) mmol/L Anion Gap (2-11) mmol/L BUN (6-24) mg/dL Creatinine (0.51-0.95) mg/dL Est GFR ( Amer) (>60) Est GFR (Non-Af Amer) (>60) BUN/Creatinine Ratio (8-20) Glucose (70-100) mg/dL Lactic Acid (0.5-2.0) mmol/L Calcium (8.6-10.3) mg/dL Total Bilirubin (0.2-1.0) mg/dL AST (13-39) U/L ALT (7-52) U/L Alkaline Phosphatase (34-104) U/L C-Reactive Protein (<8.01) mg/L Total Protein (6.4-8.9) g/dL Albumin (3.2-5.2) g/dL Globulin (2-4) g/dL Albumin/Globulin Ratio (1-3) Urine Color Yellow Urine Appearance Cloudy Urine pH 5.0 (5-9) Ur Specific [place] 1.014 (1.010-1.030) Urine Protein Negative (Negative) Urine Ketones Negative (Negative) Urine Blood Negative (Negative) Urine Nitrate Negative (Negative) Urine Bilirubin Negative (Negative) Urine Urobilinogen Negative (Negative) Ur Leukocyte Esterase Negative (Negative) Urine Glucose Negative (Negative) Urine Ascorbic Acid * A (Negative) Influenza A (Rapid) Negative (Negative) Influenza B (Rapid) Negative (Negative) Result Diagrams: 06/03/19 12:42 06/03/19 12:42 Lab Statement: Any lab studies that have been ordered have been reviewed, and results considered in the medical decision making process. - Radiology Chest x-ray Radiology Interpretation Completed By: Radiologist Summary of Radiographic Findings: NO ACTIVE CARDIOPULMONARY DISEASE. ED physician has reviewed this report. Disposition - Course Course Of Treatment: 54 year old F presenting to [facility] with a chief complaint of coughing, congestion, a fever, blisters on her lips that started today, weakness, and chest discomfort secondary to her cough, since 5 days ago. Physical exam findings: multiple blistering lesions of lips noted, no tongue or intraoral lesions. CXR reveals, per radiologist, NO ACTIVE CARDIOPULMONARY DISEASE. Laboratory results with no significant abnormalities except for a glucose of 122 and C-reactive protein of 15.11. In the ED course, the patient was given Lidocaine, normal saline, and Tylenol. Patient will be discharged with prescription for topical Acyclovir and follow up from her PCP. The patient is agreeable with this plan. - Diagnoses Provider Diagnoses: Viral URI, Cold sore Discharge ED - Sign-Out/Discharge Documenting (check all that apply): Patient Departure - Discharge Plan Condition: Stable Disposition: HOME Prescriptions: Acyclovir OINT 5%(NF) [Zovirax Oint 5%(NF)] 1 applic TOPICAL .SIX TIMES A DAY # 1 oint Patient Education Materials: Oral Herpes Simplex Virus Infections (ED), Viral Syndrome (ED) Referrals: Jason Bianchi MD [Primary Care Provider] - 06/06/19 Additional Instructions: Follow-up with your PCP on June 06, 2019. Return to the emergency department for changing or worsening symptoms. - Billing Disposition and Condition Condition: STABLE Disposition: Home - Attestation Statements Document Initiated by Scribe: Yes Documenting Scribe: Nancy Cavazos Provider For Whom Scribe is Documenting (Include Credential): Michael Land, Scribe Attestation: INancy scribed for Michael Land DO on 06/03/19 at 1938. Scribe Documentation Reviewed: Yes Provider Attestation: The documentation as recorded by the scribe, Nancy Cavazos accurately reflects the service I personally performed and the decisions made by me, Michael Land DO Status of Scribe Document: Viewed
[2019-06-03] MEDS ORDERED: Acetaminophen TAB* 325 MG PO ONE (14:46)
[2019-06-03] MEDS ORDERED: NS 0.9% 1000 ML** 1,000 ML IV ONE (14:46)
[2019-06-03] MEDS ORDERED: Lidocaine 2% JELLY* 10 ML JELLY TOPICAL ONE (16:44)
[2019-06-03] MEDS ORDERED: Lidocaine 2% JELLY* 6 ML JELLY TOPICAL ONE (16:44)
[2019-06-03] MEDS ORDERED: Acyclovir* 400 MG TAB PO ONE (17:10)
[2019-06-03 19:24] VITALS: BP 142/94
== END 2019-06-03 19:23 | disposition home or self-care (01) ==
LOC: ED 11:32
DX: J06.9 Acute upper respiratory infection, unspecified (principal); B00.1 Herpesviral vesicular dermatitis; E11.9 Type 2 diabetes mellitus without complications; Z79.4 Long term (current) use of insulin; Z79.84 Long term (current) use of oral hypoglycemic drugs; E78.00 Pure hypercholesterolemia, unspecified; J45.909 Unspecified asthma, uncomplicated; Z79.51 Long term (current) use of inhaled steroids; Z86.718 Personal history of other venous thrombosis and embolism; Z79.01 Long term (current) use of anticoagulants; Z79.899 Other long term (current) drug therapy; Z88.6 Allergy status to analgesic agent; Z88.1 Allergy status to other antibiotic agents; Z88.0 Allergy status to penicillin; Z91.018 Allergy to other foods
CPT/HCPCS: 36415; 71045; 80053; 81003; 83605; 85025; 86140; 87529; 96360; 96361; 99284; A9270-GY

== ENCOUNTER 2019-08-05 14:03 | Inpatient (IN) ==
[2019-08-05 14:58] LABS: ABS Eosinophils 0.1 10^3/ul (0-0.6); ABS Lymphocytes 1.2 10^3/ul (1.0-4.8); ABS Monocytes 0.6 10^3/ul (0-0.8); Eosinophil % 0.9 %; Hematocrit 41 % (35-47); Hemoglobin 14.6 g/dL (12.0-16.0); Lymphocyte % 14.1 %; Mean Corpuscular HGB Conc 35 g/dL (31-36); Mean Corpuscular Hemoglobin 31 pg (27-31); Mean Corpuscular Volume 88 fL (80-97); Mean Platelet Volume 8.7 fL (7.4-10.4); Platelet Count 184 10^3/uL (150-450); Red Blood Count 4.69 10^6 /uL (3.70-4.87); Red Cell Distribution Width 15 % (10-15); White Blood Count 8.4 10^3/uL (3.5-10.8)
[2019-08-05 15:12] LABS: ALT 19 U/L (7-52); AST 21 U/L (13-39); Acetaminophen < 15 mcg/mL; Albumin 4.4 g/dL (3.2-5.2); Albumin/Globulin Ratio 1.8 (1-3); Alcohol, S < 10 mg/dL (<10); Alkaline Phosphatase 86 U/L (34-104); Anion Gap 12 mmol/L (2-11); Blood Urea Nitrogen 18 mg/dL (6-24); CO2 Carbon Dioxide 21 mmol/L (22-32); Calcium 9.5 mg/dL (8.6-10.3); Chloride 107 mmol/L (101-111); EGFR African American 69.4 (>60); EGFR Non-African American 57.4 (>60); Globulin 2.4 g/dL (2-4); Glucose 161 mg/dL (70-100); Potassium 3.4 mmol/L (3.5-5.0); Salicylate < 2.50 mg/dL (<30); Sodium 140 mmol/L (135-145); Total Protein 6.8 g/dL (6.4-8.9)
[2019-08-05 15:22] LABS: TSH (Thyroid Stimulating Horm) 1.18 mcIU/mL (0.34-5.60)
[2019-08-05 15:24] LABS: Lithium < 0.10 mmol/L (0.6-1.2)
[2019-08-05] MEDS ORDERED: Al Hydrox/Mg Hydrox/Simet LIQ 30 ML UDC PO PRN (16:23)
[2019-08-05] MEDS ORDERED: diPHENhydraMINE 25 mg TAB PO PRN (16:25)
[2019-08-05] MEDS ORDERED: Budesonide/Formote 160/4.5(NF) MDI INH SCH (21:00)
[2019-08-05] MEDS ORDERED: Albuterol 2.5mg/3 ml (0.083%) NEB.SOLN INH PRN (21:10)
[2019-08-05] MEDS: TOPIRAMATE 100 MG PO SCH (21:43)
[2019-08-05] MEDS: Mometasone/Formoter 200/5 MDI INH SCH (21:45)
[2019-08-06] MEDS ORDERED: Fluticasone NASAL SPRAY 50MCG 16 gm SPRAY BTL BOTH NARES SCH (09:00)
[2019-08-06] MEDS ORDERED: ROSUVASTATIN 5 MG PO SCH (09:00)
[2019-08-06] MEDS: Insulin GLARGINE 100 un/ml 10 ml VIAL SUBCUT SCH (10:47)
[2019-08-06] MEDS: Multivitamins/Minerals TAB PO SCH (10:51)
[2019-08-06] MEDS: TOPIRAMATE 100 MG PO SCH (10:51)
[2019-08-06] MEDS: Fluticasone NASAL SPRAY 50MCG 16 gm SPRAY BTL BOTH NARES SCH (10:56)
[2019-08-06] MEDS: Mometasone/Formoter 200/5 MDI INH SCH (10:57)
[2019-08-07] MEDS: TOPIRAMATE 100 MG PO SCH ×3 (00:18→21:43)
[2019-08-07] MEDS: Mometasone/Formoter 200/5 MDI INH SCH ×3 (00:22→21:45)
[2019-08-07] MEDS: Fluticasone NASAL SPRAY 50MCG 16 gm SPRAY BTL BOTH NARES SCH (10:25)
[2019-08-07] MEDS: Multivitamins/Minerals TAB PO SCH (10:26)
[2019-08-07] MEDS ORDERED: Dextrose 50% Syringe 50 ml 25 GM/50 ML SYRINGE IV PUSH PRN (10:31)
[2019-08-07] MEDS: Insulin GLARGINE 100 un/ml 10 ml VIAL SUBCUT SCH (10:33)
[2019-08-07 10:54] LABS: ABS Basophils 0.1 10^3/ul (0-0.2); ABS Eosinophils 0.2 10^3/ul (0-0.6); ABS Lymphocytes 0.9 10^3/ul (1.0-4.8); ABS Monocytes 0.5 10^3/ul (0-0.8); Eosinophil % 2.5 %; Hematocrit 43 % (35-47); Hemoglobin 14.6 g/dL (12.0-16.0); Lymphocyte % 11.9 %; Mean Corpuscular HGB Conc 34 g/dL (31-36); Mean Corpuscular Hemoglobin 30 pg (27-31); Mean Corpuscular Volume 90 fL (80-97); Mean Platelet Volume 8.4 fL (7.4-10.4); Platelet Count 187 10^3/uL (150-450); Red Blood Count 4.83 10^6 /uL (3.70-4.87); Red Cell Distribution Width 16 % (10-15); White Blood Count 7.5 10^3/uL (3.5-10.8)
[2019-08-07] MEDS ORDERED: Benzocaine (DENTAL) 10% TOP.GEL TOPICAL PRN (11:07)
[2019-08-07 11:13] LABS: BUN/Creatinine Ratio 14.4 (8-20); Calcium 10.1 mg/dL (8.6-10.3); EGFR African American 61.5 (>60); EGFR Non-African American 50.8 (>60); Potassium 3.7 mmol/L (3.5-5.0)
[2019-08-08] MEDS: TOPIRAMATE 100 MG PO SCH ×2 (09:52→21:09)
[2019-08-08] MEDS: Multivitamins/Minerals TAB PO SCH (09:52)
[2019-08-08] MEDS: Mometasone/Formoter 200/5 MDI INH SCH ×2 (09:52→21:09)
[2019-08-08] MEDS: Fluticasone NASAL SPRAY 50MCG 16 gm SPRAY BTL BOTH NARES SCH (09:53)
[2019-08-08 19:41] LABS: Urine Appearance Cloudy; Urine Bilirubin Negative (Negative); Urine Blood Negative (Negative); Urine Color Yellow; Urine Glucose Negative (Negative); Urine Ketones Negative (Negative); Urine Nitrite Negative (Negative); Urine Protein Negative (Negative); Urine Specific Gravity 1.008 (1.010-1.030); Urine Urobilinogen Negative (Negative)
[2019-08-08 20:14] LABS: Urine Benzodiazepine Screen None Detected (None Detect); Urine Opiates Screen None Detected (None Detect)
[2019-08-09] MEDS: TOPIRAMATE 100 MG PO SCH ×2 (09:41→21:02)
[2019-08-09] MEDS: Multivitamins/Minerals TAB PO SCH (09:41)
[2019-08-09] MEDS: Fluticasone NASAL SPRAY 50MCG 16 gm SPRAY BTL BOTH NARES SCH (09:42)
[2019-08-09] MEDS: Mometasone/Formoter 200/5 MDI INH SCH ×2 (09:42→21:04)
[2019-08-10] MEDS: Multivitamins/Minerals TAB PO SCH (09:46)
[2019-08-10] MEDS: TOPIRAMATE 100 MG PO SCH ×2 (09:47→20:42)
[2019-08-10] MEDS: Mometasone/Formoter 200/5 MDI INH SCH ×2 (09:49→20:45)
[2019-08-10] MEDS: Fluticasone NASAL SPRAY 50MCG 16 gm SPRAY BTL BOTH NARES SCH (09:50)
[2019-08-11] MEDS: TOPIRAMATE 100 MG PO SCH ×2 (09:02→20:26)
[2019-08-11] MEDS: Multivitamins/Minerals TAB PO SCH (09:02)
[2019-08-11] MEDS: Mometasone/Formoter 200/5 MDI INH SCH ×2 (09:03→20:28)
[2019-08-11] MEDS: Fluticasone NASAL SPRAY 50MCG 16 gm SPRAY BTL BOTH NARES SCH (09:03)
[2019-08-12] MEDS: TOPIRAMATE 100 MG PO SCH (09:07)
[2019-08-12] MEDS: Multivitamins/Minerals TAB PO SCH (09:07)
[2019-08-12] MEDS: Fluticasone NASAL SPRAY 50MCG 16 gm SPRAY BTL BOTH NARES SCH (09:08)
[2019-08-12] MEDS: Mometasone/Formoter 200/5 MDI INH SCH (09:08)
[2019-08-12 10:23] VITALS: BP 152/92
== END 2019-08-12 14:50 | disposition home or self-care (01) | DRG 885 ==
LOC: ED 14:03 → BSU 17:40
PROVIDERS: ADMIT Psychiatry & Neurology Psychiatry; ATTEND Psychiatry & Neurology Psychiatry

== ENCOUNTER 2019-09-20 11:51 | Inpatient (IN) ==
[2019-09-20 13:41] LABS: ABS Eosinophils 0.2 10^3/ul (0-0.6); ABS Lymphocytes 1.1 10^3/ul (1.0-4.8); ABS Monocytes 0.4 10^3/ul (0-0.8); Eosinophil % 2.2 %; Hematocrit 40 % (35-47); Hemoglobin 13.8 g/dL (12.0-16.0); Lymphocyte % 15.9 %; Mean Corpuscular HGB Conc 35 g/dL (31-36); Mean Corpuscular Hemoglobin 31 pg (27-31); Mean Corpuscular Volume 89 fL (80-97); Mean Platelet Volume 8.4 fL (7.4-10.4); Nucleated Red Blood Cells % 0.1; Platelet Count 174 10^3/uL (150-450); Red Blood Count 4.45 10^6 /uL (3.70-4.87); Red Cell Distribution Width 16 % (10-15)
[2019-09-20 13:55] LABS: ALT 15 U/L (7-52); AST 14 U/L (13-39); Albumin 4.2 g/dL (3.2-5.2); Albumin/Globulin Ratio 1.8 (1-3); Alkaline Phosphatase 111 U/L (34-104); BUN/Creatinine Ratio 20.8 (8-20); Blood Urea Nitrogen 20 mg/dL (6-24); CO2 Carbon Dioxide 19 mmol/L (22-32); Calcium 9.4 mg/dL (8.6-10.3); EGFR African American 72.7 (>60); EGFR Non-African American 60.1 (>60); Globulin 2.4 g/dL (2-4); Glucose 109 mg/dL (70-100); Potassium 3.7 mmol/L (3.5-5.0); Sodium 140 mmol/L (135-145); Total Protein 6.6 g/dL (6.4-8.9)
[2019-09-20 13:59] LABS: Anion Gap 8 mmol/L (2-11); Chloride 113 mmol/L (101-111)
[2019-09-20] MEDS ORDERED: Al Hydrox/Mg Hydrox/Simet LIQ 30 ML UDC PO PRN (14:09)
[2019-09-20] MEDS ORDERED: Albuterol HFA INHALER 8 gm MDI INH PRN (14:10)
[2019-09-20 14:26] LABS: Acetaminophen < 15 mcg/mL; Alcohol, S < 10 mg/dL (<10); Salicylate < 2.50 mg/dL (<30)
[2019-09-20] MEDS: Lurasidone 80 mg TAB (*) PO SCH (17:22)
[2019-09-20] MEDS ORDERED: Lurasidone 80 mg TAB (*) PO SCH (18:00)
[2019-09-20] MEDS ORDERED: Budesonide/Formote 160/4.5(NF) MDI INH SCH (21:00)
[2019-09-21] MEDS: Mometasone/Formoter 200/5 MDI INH SCH ×3 (01:34→21:38)
[2019-09-21] MEDS: TOPIRAMATE 100 MG PO SCH ×3 (01:34→21:40)
[2019-09-21] MEDS ORDERED: ROSUVASTATIN 5 MG PO SCH (09:00)
[2019-09-21] MEDS ORDERED: Fluticasone NASAL SPRAY 50MCG 16 gm SPRAY BTL BOTH NARES SCH (09:00)
[2019-09-21] MEDS: CMC:Rosuvastatin 5 mg TAB (NF) PO SCH (09:23)
[2019-09-21] MEDS: Multivitamins/Minerals TAB PO SCH (09:23)
[2019-09-21] MEDS: Fluticasone NASAL SPRAY 50MCG 16 gm SPRAY BTL BOTH NARES SCH (09:25)
[2019-09-21] MEDS ORDERED: LORazepam 0.5 mg TAB (*) PO PRN (15:18)
[2019-09-21] MEDS: Lurasidone 80 mg TAB (*) PO SCH (17:29)
[2019-09-22] MEDS: TOPIRAMATE 100 MG PO SCH ×2 (08:16→21:10)
[2019-09-22] MEDS: Multivitamins/Minerals TAB PO SCH (08:16)
[2019-09-22] MEDS: Fluticasone NASAL SPRAY 50MCG 16 gm SPRAY BTL BOTH NARES SCH (08:17)
[2019-09-22] MEDS: Mometasone/Formoter 200/5 MDI INH SCH ×2 (08:17→22:07)
[2019-09-22] MEDS: CMC:Rosuvastatin 5 mg TAB (NF) PO SCH (08:17)
[2019-09-22 11:24] LABS: Urine Appearance Cloudy; Urine Bilirubin Negative (Negative); Urine Blood Negative (Negative); Urine Color Yellow; Urine Glucose Negative (Negative); Urine Ketones Negative (Negative); Urine Nitrite Negative (Negative); Urine Protein Negative (Negative); Urine Specific Gravity 1.013 (1.010-1.030); Urine Urobilinogen Negative (Negative)
[2019-09-22] MEDS: Lurasidone 80 mg TAB (*) PO SCH (17:42)
[2019-09-22] MEDS: LORazepam 0.5 mg TAB (*) PO SCH (21:11)
[2019-09-23] MEDS: CMC:Rosuvastatin 5 mg TAB (NF) PO SCH (08:57)
[2019-09-23] MEDS: Multivitamins/Minerals TAB PO SCH (08:58)
[2019-09-23] MEDS: TOPIRAMATE 100 MG PO SCH ×2 (08:59→21:44)
[2019-09-23] MEDS: Fluticasone NASAL SPRAY 50MCG 16 gm SPRAY BTL BOTH NARES SCH (08:59)
[2019-09-23] MEDS: Mometasone/Formoter 200/5 MDI INH SCH ×2 (09:00→21:40)
[2019-09-23] MEDS: Lurasidone 80 mg TAB (*) PO SCH (17:29)
[2019-09-23] MEDS: LORazepam 0.5 mg TAB (*) PO SCH (21:43)
[2019-09-24 08:21] LABS: HDL Cholesterol 50.7 mg/dL
[2019-09-24] MEDS: CMC:Rosuvastatin 5 mg TAB (NF) PO SCH (10:17)
[2019-09-24] MEDS: TOPIRAMATE 100 MG PO SCH ×2 (10:17→21:23)
[2019-09-24] MEDS: Multivitamins/Minerals TAB PO SCH (10:18)
[2019-09-24] MEDS: Mometasone/Formoter 200/5 MDI INH SCH ×2 (10:19→21:22)
[2019-09-24] MEDS: Fluticasone NASAL SPRAY 50MCG 16 gm SPRAY BTL BOTH NARES SCH (10:19)
[2019-09-24] MEDS: Lurasidone 80 mg TAB (*) PO SCH (17:34)
[2019-09-24] MEDS: LORazepam 0.5 mg TAB (*) PO SCH (21:22)
[2019-09-25] MEDS: CMC:Rosuvastatin 5 mg TAB (NF) PO SCH (10:01)
[2019-09-25] MEDS: TOPIRAMATE 100 MG PO SCH ×2 (10:02→21:01)
[2019-09-25] MEDS: Multivitamins/Minerals TAB PO SCH (10:02)
[2019-09-25] MEDS: Mometasone/Formoter 200/5 MDI INH SCH ×2 (10:03→21:03)
[2019-09-25] MEDS: Fluticasone NASAL SPRAY 50MCG 16 gm SPRAY BTL BOTH NARES SCH (10:03)
[2019-09-25] MEDS: Lurasidone 80 mg TAB (*) PO SCH (17:50)
[2019-09-25] MEDS: LORazepam 0.5 mg TAB (*) PO SCH (21:02)
[2019-09-26] MEDS: Mometasone/Formoter 200/5 MDI INH SCH ×2 (09:26→21:00)
[2019-09-26] MEDS: Fluticasone NASAL SPRAY 50MCG 16 gm SPRAY BTL BOTH NARES SCH (09:26)
[2019-09-26] MEDS: CMC:Rosuvastatin 5 mg TAB (NF) PO SCH (09:27)
[2019-09-26] MEDS: TOPIRAMATE 100 MG PO SCH ×2 (09:27→21:00)
[2019-09-26] MEDS: Multivitamins/Minerals TAB PO SCH (09:28)
[2019-09-26 17:16] LABS: ABS Eosinophils 0.3 10^3/ul (0-0.6); ABS Lymphocytes 1.4 10^3/ul (1.0-4.8); ABS Monocytes 0.5 10^3/ul (0-0.8); Eosinophil % 3.8 %; Hematocrit 39 % (35-47); Hemoglobin 13.1 g/dL (12.0-16.0); Lymphocyte % 19.1 %; Mean Corpuscular HGB Conc 34 g/dL (31-36); Mean Corpuscular Hemoglobin 31 pg (27-31); Mean Corpuscular Volume 90 fL (80-97); Mean Platelet Volume 7.9 fL (7.4-10.4); Nucleated Red Blood Cells % 0.1; Platelet Count 203 10^3/uL (150-450); Red Blood Count 4.28 10^6 /uL (3.70-4.87); Red Cell Distribution Width 16 % (10-15); White Blood Count 7.3 10^3/uL (3.5-10.8)
[2019-09-26] MEDS: Lurasidone 80 mg TAB (*) PO SCH (17:48)
[2019-09-26] MEDS: LORazepam 0.5 mg TAB (*) PO SCH (20:57)
[2019-09-27] MEDS: Fluticasone NASAL SPRAY 50MCG 16 gm SPRAY BTL BOTH NARES SCH (08:26)
[2019-09-27] MEDS: Mometasone/Formoter 200/5 MDI INH SCH ×2 (08:26→20:40)
[2019-09-27] MEDS: CMC:Rosuvastatin 5 mg TAB (NF) PO SCH (08:27)
[2019-09-27] MEDS: TOPIRAMATE 100 MG PO SCH ×2 (08:28→20:40)
[2019-09-27] MEDS: Multivitamins/Minerals TAB PO SCH (08:29)
[2019-09-27] MEDS: Lurasidone 80 mg TAB (*) PO SCH (17:40)
[2019-09-27] MEDS: LORazepam 0.5 mg TAB (*) PO SCH (20:39)
[2019-09-28 09:11] VITALS: BP 120/68
== END 2019-09-28 08:15 | disposition home or self-care (01) | DRG 885 ==
LOC: ED 11:51 → BSU 14:09 → ED 15:56 → BSU 09-26 20:59
PROVIDERS: ADMIT Psychiatry & Neurology Psychiatry; ATTEND Psychiatry & Neurology Psychiatry

== ENCOUNTER 2022-02-26 21:27 | Inpatient (IN) ==
[2022-02-26] MEDS ORDERED: NS 0.9% 500 ml BAG 500 ML IV ONE (23:10)
[2022-02-26 23:46] LABS: Hematocrit 45 % (35-47); Hemoglobin 14.6 g/dL (12.0-16.0); Mean Corpuscular HGB Conc 33 g/dL (31-36); Mean Corpuscular Hemoglobin 29 pg (27-31); Mean Corpuscular Volume 89 fL (80-97); Mean Platelet Volume 8.5 fL (7.4-10.4); Platelet Count 255 10^3/uL (150-450); Red Blood Count 5.04 10^6 /uL (3.70-4.87); Red Cell Distribution Width 13 % (10-15); White Blood Count 13.8 10^3/uL (3.5-10.8)
[2022-02-27 00:20] LABS: Albumin 4.1 g/dL (3.2-5.2); Albumin/Globulin Ratio 1.7 (1-3); C Reactive Protein 68.05 mg/L (<8.01); Calcium 9.2 mg/dL (8.6-10.3); Globulin 2.4 g/dL (2-4); Lithium 0.11 mmol/L (0.6-1.2); Potassium 4.5 mmol/L (3.5-5.0); Total Bilirubin 0.5 mg/dL (0.2-1.0); Total Protein 6.5 g/dL (6.4-8.9); eGFR CKD-EPI 54.3 (>60)
[2022-02-27 00:34] LABS: TSH Ultra Thyroid Stim Horm 3.25 mcIU/mL (0.34-5.60)
[2022-02-27 01:08] LABS: Erythrocyte Sed Rate 21 mm/Hr (0-29)
[2022-02-27] MEDS ORDERED: Dextrose 50% Syringe 50 ml 25 GM/50 ML SYRINGE IV PUSH ONE (01:11)
[2022-02-27] MEDS ORDERED: Dextrose 50% Syringe 50 ml 25 GM/50 ML SYRINGE IV PUSH PRN ×2 (01:22→14:47)
[2022-02-27 01:25] LABS: PCO2 Arterial 23 mmHg (35-45); PO2 Arterial 92 mmHg (80-100)
[2022-02-27 01:40] LABS: ABS Basophils 0.1 10^3/ul (0-0.2); ABS Eosinophils 0.2 10^3/ul (0-0.6); ABS Lymphocytes 1.8 10^3/ul (1.0-4.8); ABS Monocytes 1.3 10^3/ul (0-0.8); ABS Neutrophils 10.4 10^3/ul (1.5-7.7); Eosinophil % 1.2 %; Lymphocyte % 13.1 %
[2022-02-27] MEDS ORDERED: NS 0.9% w/ 20 Meq KCL 1000 ml 1,000 ML IV SCH (02:00)
[2022-02-27] MEDS ORDERED: Insulin Infusion 100unit/100mL 100 UNIT/100 ML BAG IV SCH (02:00)
[2022-02-27] MEDS ORDERED: D5LR 1000 ml BAG 1,000 ML IV SCH (03:00)
[2022-02-27 03:34] LABS: Blood Urea Nitrogen 23 mg/dL (6-24); Calcium 8.3 mg/dL (8.6-10.3); Chloride 101 mmol/L (101-111); Glucose 478 mg/dL (70-100); Sodium 129 mmol/L (135-145); eGFR CKD-EPI 64.9 (>60)
[2022-02-27 03:40] LABS: Anion Gap 17 mmol/L (2-11); CO2 Carbon Dioxide 11 mmol/L (22-32)
[2022-02-27 04:19] LABS: Magnesium 1.7 mg/dL (1.9-2.7); Phosphorus 1.9 mg/dL (2.5-5.0); Potassium Redraw 3.6 mmol/L (3.5-5.0)
[2022-02-27 04:19] LABS: Urine Appearance Clear; Urine Bilirubin Negative (Negative); Urine Blood 1+ (Negative); Urine Color Straw; Urine Glucose 3+(>=500 mg/dL) (Negative); Urine Ketones 2+ (Negative); Urine Nitrite Negative (Negative); Urine Protein Negative (Negative); Urine Specific Gravity 1.011 (1.002-1.030); Urine Urobilinogen Negative (Negative)
[2022-02-27 05:12] LABS: Urine Bacteria 1+ (Absent); Urine Red Blood Cell Trace(0-2/hpf) (Absent); Urine Squamous Epithelial Cell Present (Absent); Urine White Blood Cell Trace(0-5/hpf) (Absent)
[2022-02-27] MEDS ORDERED: Magnesium Sulfate IV 3 GM in NS 0.9% 100 ml BAG 100 ML IVPB ONE (05:12)
[2022-02-27] MEDS ORDERED: Potassium Phosphate IV 15 MMOLE in NS 0.9% 250 ml 250 ML IVPB ONE (05:12)
[2022-02-27] MEDS: D5W 1/2 NS 40 Meq KCL 1000 ml 1,000 ML IV SCH ×2 (05:57→10:58)
[2022-02-27] MEDS: Heparin 5000 UNITS/ML 1 mL VIAL SUBCUT SCH ×3 (06:08→21:13)
[2022-02-27 06:29] LABS: HDL Cholesterol 46.5 mg/dL
[2022-02-27 09:16] LABS: ABS Eosinophils 0.1 10^3/ul (0-0.6); ABS Lymphocytes 1.5 10^3/ul (1.0-4.8); ABS Monocytes 0.8 10^3/ul (0-0.8); ABS Neutrophils 7.7 10^3/ul (1.5-7.7); Eosinophil % 0.9 %; Hematocrit 39 % (35-47); Hemoglobin 13.2 g/dL (12.0-16.0); Lymphocyte % 15.2 %; Mean Corpuscular HGB Conc 34 g/dL (31-36); Mean Corpuscular Hemoglobin 29 pg (27-31); Mean Corpuscular Volume 88 fL (80-97); Mean Platelet Volume 8.4 fL (7.4-10.4); Nucleated Red Blood Cells % 0.1; Platelet Count 211 10^3/uL (150-450); Red Cell Distribution Width 13 % (10-15); White Blood Count 10.2 10^3/uL (3.5-10.8)
[2022-02-27] MEDS: Nystatin TOP POWDER 15 GM BTL TOPICAL SCH ×2 (09:41→20:05)
[2022-02-27 09:45] LABS: Calcium 8.2 mg/dL (8.6-10.3); Magnesium 2.7 mg/dL (1.9-2.7); Phosphorus 1.7 mg/dL (2.5-5.0); Potassium 3.9 mmol/L (3.5-5.0); eGFR CKD-EPI 78.9 (>60)
[2022-02-27] MEDS: Nitrofurantoin (monohydrate/macrocrystals) 100 mg CAP PO SCH ×2 (09:45→20:05)
[2022-02-27] MEDS ORDERED: Potassium Phosphate IV 10 MMOLE in NS 0.9% 250 ml 250 ML IVPB ONE (10:31)
[2022-02-27 14:38] LABS: Calcium 7.9 mg/dL (8.6-10.3); Potassium 4.1 mmol/L (3.5-5.0); eGFR CKD-EPI 83.6 (>60)
[2022-02-27] MEDS ORDERED: Insulin GLARGINE 100 un/ml 10 ml VIAL SUBCUT ONE (16:45)
[2022-02-27 19:25] LABS: Calcium 7.7 mg/dL (8.6-10.3); Potassium 4.9 mmol/L (3.5-5.0); eGFR CKD-EPI 56.6 (>60)
[2022-02-27 20:49] LABS: Glucose Confirmatory 494 mg/dL (70-100)
[2022-02-27] MEDS ORDERED: Insulin GLARGINE 100 un/ml 10 ml VIAL SUBCUT SCH (21:00)
[2022-02-28 05:03] LABS: ABS Eosinophils 0.1 10^3/ul (0-0.6); ABS Lymphocytes 1.8 10^3/ul (1.0-4.8); ABS Monocytes 0.7 10^3/ul (0-0.8); ABS Neutrophils 4.9 10^3/ul (1.5-7.7); Eosinophil % 1.5 %; Hematocrit 40 % (35-47); Hemoglobin 13.3 g/dL (12.0-16.0); Lymphocyte % 23.4 %; Mean Corpuscular HGB Conc 33 g/dL (31-36); Mean Corpuscular Hemoglobin 29 pg (27-31); Mean Corpuscular Volume 89 fL (80-97); Mean Platelet Volume 8.1 fL (7.4-10.4); Nucleated Red Blood Cells % 0.1; Platelet Count 208 10^3/uL (150-450); Red Blood Count 4.55 10^6 /uL (3.70-4.87); Red Cell Distribution Width 14 % (10-15); White Blood Count 7.5 10^3/uL (3.5-10.8)
[2022-02-28 05:36] LABS: Calcium 8.5 mg/dL (8.6-10.3); Magnesium 2.4 mg/dL (1.9-2.7); Phosphorus 2.1 mg/dL (2.5-5.0); eGFR CKD-EPI 68.2 (>60)
[2022-02-28] MEDS: Heparin 5000 UNITS/ML 1 mL VIAL SUBCUT SCH ×3 (06:10→22:14)
[2022-02-28] MEDS: Nitrofurantoin (monohydrate/macrocrystals) 100 mg CAP PO SCH ×2 (08:54→22:11)
[2022-02-28] MEDS: Nystatin TOP POWDER 15 GM BTL TOPICAL SCH ×2 (09:00→23:00)
[2022-02-28] MEDS ORDERED: Insulin GLARGINE 100 un/ml 10 ml VIAL SUBCUT ONE ×3 (10:33→10:56)
[2022-02-28] MEDS ORDERED: Ondansetron 4 mg VIAL 2 MG/ML 2 ml VIAL IV ONE (20:11)
[2022-02-28] MEDS: Insulin GLARGINE 100 un/ml 10 ml VIAL SUBCUT SCH (22:12)
[2022-03-01 00:42] LABS: Glucose Confirmatory 434 mg/dL (70-100)
[2022-03-01] MEDS: Heparin 5000 UNITS/ML 1 mL VIAL SUBCUT SCH ×3 (06:09→22:25)
[2022-03-01] MEDS: Nitrofurantoin (monohydrate/macrocrystals) 100 mg CAP PO SCH ×2 (09:10→21:02)
[2022-03-01] MEDS: Nystatin TOP POWDER 15 GM BTL TOPICAL SCH ×2 (09:10→22:26)
[2022-03-01] MEDS: Insulin GLARGINE 100 un/ml 10 ml VIAL SUBCUT SCH (21:07)
[2022-03-02] MEDS: Heparin 5000 UNITS/ML 1 mL VIAL SUBCUT SCH ×3 (05:57→21:02)
[2022-03-02] MEDS: Nystatin TOP POWDER 15 GM BTL TOPICAL SCH ×2 (07:50→21:14)
[2022-03-02] MEDS: Nitrofurantoin (monohydrate/macrocrystals) 100 mg CAP PO SCH (07:50)
[2022-03-02 13:41] LABS: Potassium 4.4 mmol/L (3.5-5.0)
[2022-03-02 13:47] LABS: eGFR CKD-EPI 60.5 (>60)
[2022-03-02] MEDS ORDERED: CMCS: Lithium Carb ER 300 mg TAB(NF) PO SCH (21:00)
[2022-03-02] MEDS ORDERED: Insulin GLARGINE 100 un/ml 10 ml VIAL SUBCUT SCH (21:00)
[2022-03-03] MEDS: Heparin 5000 UNITS/ML 1 mL VIAL SUBCUT SCH (06:33)
[2022-03-03 08:08] VITALS: BP 115/68
[2022-03-03] MEDS: Nystatin TOP POWDER 15 GM BTL TOPICAL SCH (08:31)
== END 2022-03-03 10:57 | disposition home or self-care (01) | DRG 638 ==
LOC: ED 21:27 → SUATTDRO 02-27 02:03 → EDHOLD 02-27 02:03 → ICU 02-27 07:19 → SSU 02-28 10:58
PROVIDERS: ADMIT Surgery Surgical Critical Care; ATTEND Hospitalist

== ENCOUNTER 2022-03-06 10:16 | Inpatient (IN) ==
[2022-03-06] MEDS ORDERED: Lactated Ringers 1000 ml BAG 1,000 ML IV ONE ×3 (10:30→14:51)
[2022-03-06 10:57] LABS: PCO2 Arterial 36 mmHg (35-45); PO2 Arterial 90 mmHg (80-100)
[2022-03-06 11:16] LABS: ABS Eosinophils 0.2 10^3/ul (0-0.6); ABS Lymphocytes 1.1 10^3/ul (1.0-4.8); ABS Monocytes 0.7 10^3/ul (0-0.8); ABS Neutrophils 4.2 10^3/ul (1.5-7.7); Hematocrit 43 % (35-47); Lymphocyte % 17.5 %; Mean Corpuscular HGB Conc 33 g/dL (31-36); Mean Corpuscular Hemoglobin 30 pg (27-31); Mean Corpuscular Volume 92 fL (80-97); Mean Platelet Volume 8.3 fL (7.4-10.4); Platelet Count 202 10^3/uL (150-450); Red Blood Count 4.67 10^6 /uL (3.70-4.87); Red Cell Distribution Width 14 % (10-15); White Blood Count 6.2 10^3/uL (3.5-10.8)
[2022-03-06 11:25] LABS: Urine Appearance Clear; Urine Bilirubin Negative (Negative); Urine Blood Negative (Negative); Urine Color Straw; Urine Glucose 3+(>=500 mg/dL) (Negative); Urine Ketones Negative (Negative); Urine Nitrite Negative (Negative); Urine Protein Negative (Negative); Urine Specific Gravity 1.014 (1.002-1.030); Urine Urobilinogen Negative (Negative)
[2022-03-06 11:49] LABS: ALT 63 U/L (7-52); Albumin 3.7 g/dL (3.2-5.2); Albumin/Globulin Ratio 1.5 (1-3); Alkaline Phosphatase 80 U/L (35-149); Blood Urea Nitrogen 19 mg/dL (6-24); C Reactive Protein 6.34 mg/L (<8.01); CO2 Carbon Dioxide 24 mmol/L (22-32); Calcium 9.2 mg/dL (8.6-10.3); Chloride 93 mmol/L (101-111); Globulin 2.4 g/dL (2-4); Sodium 126 mmol/L (135-145); Total Protein 6.1 g/dL (6.4-8.9); eGFR CKD-EPI 50.1 (>60)
[2022-03-06 12:09] LABS: Anion Gap 9 mmol/L (2-11); Glucose 793 mg/dL (70-100)
[2022-03-06 13:29] LABS: Lithium 0.62 mmol/L (0.6-1.2)
[2022-03-06 15:00] LABS: Potassium Redraw 4.7 mmol/L (3.5-5.0)
[2022-03-06] MEDS ORDERED: Dextrose 50% Syringe 50 ml 25 GM/50 ML SYRINGE IV PUSH PRN ×3 (15:03→17:29)
[2022-03-06] MEDS ORDERED: Insulin Infusion 100unit/100mL 100 UNIT/100 ML BAG IV ONE (15:03)
[2022-03-06] MEDS ORDERED: Insulin Infusion 100unit/100mL 100 UNIT/100 ML BAG IV SCH (16:00)
[2022-03-06] MEDS ORDERED: D10W 1000 ml BAG 1,000 ML IV SCH (16:00)
[2022-03-06] MEDS ORDERED: D5W 1/2 NS 1000 ml BAG 1,000 ML IV SCH (16:00)
[2022-03-06 16:05] LABS: Osmolality Serum 306 mOsm/kg (275-295)
[2022-03-06] MEDS ORDERED: Albuterol 2.5mg/3 ml (0.083%) NEB.SOLN INH PRN (16:24)
[2022-03-06] MEDS ORDERED: Insulin GLARGINE 100 un/ml 10 ml VIAL SUBCUT SCH ×2 (16:33→21:00)
[2022-03-06] MEDS ORDERED: NORMOSOL-R pH 7.4 1000 mL BAG 1,000 ML IV SCH (17:00)
[2022-03-06] MEDS ORDERED: Pantoprazole VIAL 40 MG VIAL IV SCH (17:00)
[2022-03-06 17:42] LABS: TSH Ultra Thyroid Stim Horm 3.15 mcIU/mL (0.34-5.60)
[2022-03-06 18:11] LABS: Phosphorus 2.8 mg/dL (2.5-5.0)
[2022-03-06 20:41] LABS: Calcium 8.7 mg/dL (8.6-10.3); Magnesium 1.9 mg/dL (1.9-2.7)
[2022-03-06 20:50] LABS: Phosphorus 2.9 mg/dL (2.5-5.0); Potassium 4.3 mmol/L (3.5-5.0)
[2022-03-06] MEDS: Lithium Carbonate ER 450mg TAB PO SCH (21:31)
[2022-03-06] MEDS: Insulin GLARGINE 100 un/ml 10 ml VIAL SUBCUT SCH (21:32)
[2022-03-07 01:39] LABS: Magnesium 1.9 mg/dL (1.9-2.7); Phosphorus 2.6 mg/dL (2.5-5.0); Potassium 3.7 mmol/L (3.5-5.0); eGFR CKD-EPI 47.8 (>60)
[2022-03-07] MEDS: Nystatin TOP POWDER 15 GM BTL TOPICAL SCH ×3 (05:39→21:35)
[2022-03-07 06:04] LABS: CO2 Carbon Dioxide 25 mmol/L (22-32); Calcium 9.4 mg/dL (8.6-10.3); Chloride 106 mmol/L (101-111); Sodium 138 mmol/L (135-145)
[2022-03-07 06:10] LABS: Blood Urea Nitrogen 14 mg/dL (6-24); Glucose 78 mg/dL (70-100)
[2022-03-07 06:17] LABS: Anion Gap 7 mmol/L (2-11)
[2022-03-07 07:02] LABS: ABS Eosinophils 0.2 10^3/ul (0-0.6); ABS Lymphocytes 1.3 10^3/ul (1.0-4.8); ABS Monocytes 0.5 10^3/ul (0-0.8); ABS Neutrophils 3.7 10^3/ul (1.5-7.7); Eosinophil % 2.8 %; Hematocrit 38 % (35-47); Hemoglobin 13.2 g/dL (12.0-16.0); Lymphocyte % 23.1 %; Mean Corpuscular HGB Conc 35 g/dL (31-36); Mean Corpuscular Hemoglobin 30 pg (27-31); Mean Corpuscular Volume 87 fL (80-97); Mean Platelet Volume 7.5 fL (7.4-10.4); Nucleated Red Blood Cells % 0.1; Platelet Count 167 10^3/uL (150-450); Red Blood Count 4.37 10^6 /uL (3.70-4.87); Red Cell Distribution Width 13 % (10-15); White Blood Count 5.8 10^3/uL (3.5-10.8)
[2022-03-07 07:07] LABS: INR 0.94 (0.89-1.11)
[2022-03-07 07:52] LABS: Magnesium 1.9 mg/dL (1.9-2.7); Phosphorus 3.1 mg/dL (2.5-5.0); Potassium Redraw 3.7 mmol/L (3.5-5.0)
[2022-03-07 12:29] LABS: Calcium 8.6 mg/dL (8.6-10.3); Magnesium 1.9 mg/dL (1.9-2.7); Potassium 4.2 mmol/L (3.5-5.0); eGFR CKD-EPI 55.5 (>60)
[2022-03-07 12:34] LABS: HDL Cholesterol 45.3 mg/dL
[2022-03-07 16:52] LABS: Calcium 8.9 mg/dL (8.6-10.3); Magnesium 1.9 mg/dL (1.9-2.7); Phosphorus 3.2 mg/dL (2.5-5.0); Potassium 4.2 mmol/L (3.5-5.0)
[2022-03-07] MEDS: Lithium Carbonate ER 450mg TAB PO SCH (21:33)
[2022-03-07] MEDS: Insulin GLARGINE 100 un/ml 10 ml VIAL SUBCUT SCH (21:34)
[2022-03-08 05:52] LABS: ABS Eosinophils 0.2 10^3/ul (0-0.6); ABS Lymphocytes 1.4 10^3/ul (1.0-4.8); ABS Monocytes 0.6 10^3/ul (0-0.8); ABS Neutrophils 3.3 10^3/ul (1.5-7.7); Eosinophil % 2.9 %; Hematocrit 40 % (35-47); Hemoglobin 13.2 g/dL (12.0-16.0); Lymphocyte % 25.9 %; Mean Corpuscular HGB Conc 33 g/dL (31-36); Mean Corpuscular Hemoglobin 30 pg (27-31); Mean Corpuscular Volume 89 fL (80-97); Mean Platelet Volume 7.6 fL (7.4-10.4); Nucleated Red Blood Cells % 0.1; Platelet Count 172 10^3/uL (150-450); Red Blood Count 4.48 10^6 /uL (3.70-4.87); Red Cell Distribution Width 14 % (10-15); White Blood Count 5.5 10^3/uL (3.5-10.8)
[2022-03-08 06:17] LABS: Calcium 8.5 mg/dL (8.6-10.3); Potassium 4.1 mmol/L (3.5-5.0)
[2022-03-08 06:23] LABS: eGFR CKD-EPI 59.8 (>60)
[2022-03-08] MEDS: Nystatin TOP POWDER 15 GM BTL TOPICAL SCH ×2 (08:27→21:05)
[2022-03-08 15:28] LABS: Calcium 8.7 mg/dL (8.6-10.3); Potassium 4.1 mmol/L (3.5-5.0); eGFR CKD-EPI 62.6 (>60)
[2022-03-08] MEDS ORDERED: Insulin GLARGINE 100 un/ml 10 ml VIAL SUBCUT SCH (21:00)
[2022-03-08] MEDS: Lithium Carbonate ER 450mg TAB PO SCH (21:03)
[2022-03-09] MEDS: Nystatin TOP POWDER 15 GM BTL TOPICAL SCH ×3 (08:20→21:12)
[2022-03-09 08:41] LABS: Calcium 8.8 mg/dL (8.6-10.3); Potassium 3.9 mmol/L (3.5-5.0); eGFR CKD-EPI 74.6 (>60)
[2022-03-09] MEDS: Lithium Carbonate ER 450mg TAB PO SCH (19:40)
[2022-03-09] MEDS ORDERED: Insulin GLARGINE 100 un/ml 10 ml VIAL SUBCUT SCH (21:00)
[2022-03-10] MEDS: Nystatin TOP POWDER 15 GM BTL TOPICAL SCH (08:14)
[2022-03-10 08:23] LABS: Calcium 8.8 mg/dL (8.6-10.3); Phosphorus 3.4 mg/dL (2.5-5.0); Potassium 3.9 mmol/L (3.5-5.0); eGFR CKD-EPI 61.9 (>60)
[2022-03-10 10:55] VITALS: BP 121/76
[2022-03-13 12:51] LABS: Zinc Transporter 8 (ZnT8) Ab <15.0 U/mL (<15.0)
== END 2022-03-10 14:30 | disposition home or self-care (01) | DRG 639 ==
LOC: ED 10:16 → SUATTDRO 15:53 → EDHOLD 15:53 → INTOOBSV 15:53 → MED 22:32
PROVIDERS: ADMIT Internal Medicine Critical Care Medicine; ATTEND Hospitalist

== ENCOUNTER 2022-08-25 23:29 | Observation (INO) ==
[2022-08-26 00:05] LABS: Venous Bicarbonate HCO3 24.5 mmol/L (24-28)
[2022-08-26 00:06] LABS: ABS Basophils 0.1 10^3/uL (0.0-0.1); ABS Eosinophils 0.1 10^3/uL (0.0-0.5); ABS Lymphocytes 1.1 10^3/uL (1.0-4.8); ABS Monocytes 0.9 10^3/uL (0.0-0.9); ABS Neutrophils 11.8 10^3/uL (1.5-7.6); Eosinophil % 0.4 %; Hematocrit 35.9 % (35-45); Lymphocyte % 7.7 %; Mean Corpuscular Hemoglobin 27.9 pg (27-33); Mean Corpuscular Hgb Conc 33.6 g/dL (31-36); Mean Corpuscular Volume 83.1 fL (80-97); Mean Platelet Volume 8.3 fL (7.5-11.2); Platelet Count 305 10^3/uL (150-450); Red Blood Count 4.32 10^6/uL (3.63-4.92); Red Cell Distribution Width 14.9 % (12-17); White Blood Count 13.9 10^3/uL (3.8-11.8)
[2022-08-26] MEDS: Lactated Ringers 1000 ml BAG 1,000 ML IV SCH ×2 (00:26→01:27)
[2022-08-26 00:31] LABS: ALT 59 U/L (7-52); AST 14 U/L (13-39); Albumin 3.6 g/dL (3.2-5.2); Albumin/Globulin Ratio 1.3 (1-3); Alkaline Phosphatase 102 U/L (35-149); Anion Gap 8 mmol/L (2-16); Blood Urea Nitrogen 28 mg/dL (6-24); CO2 Carbon Dioxide 23 mmol/L (22-32); Calcium 9.3 mg/dL (8.6-10.3); Chloride 93 mmol/L (101-111); Creatinine, Serum 1.39 mg/dL (0.51-0.95); Globulin 2.7 g/dL (2-4); Potassium 4.9 mmol/L (3.5-5.0); Sodium 124 mmol/L (135-145); Total Protein 6.3 g/dL (6.4-8.9); eGFR CKD-EPI 43.7 (>60)
[2022-08-26 00:32] LABS: Glucose 617 mg/dL (70-100)
[2022-08-26] MEDS ORDERED: Dextrose 50% Syringe 50 ml 25 GM/50 ML SYRINGE IV PUSH PRN (00:34)
[2022-08-26 01:20] LABS: Urine Appearance Cloudy; Urine Bilirubin Negative (Negative); Urine Blood 2+ (Negative); Urine Color Straw; Urine Glucose 3+(>=500 mg/dL) (Negative); Urine Ketones Negative (Negative); Urine Nitrite Negative (Negative); Urine Protein Negative (Negative); Urine Specific Gravity 1.012 (1.002-1.030); Urine Urobilinogen Negative (Negative)
[2022-08-26 01:26] LABS: Urine Bacteria 1+ (Absent); Urine Red Blood Cell 2+(6-10/hpf) (Absent); Urine Squamous Epithelial Cell Present (Absent); Urine White Blood Cell 3+(>20/hpf) (Absent)
[2022-08-26 02:08] LABS: HCG Pregnancy < 0.60 mIU/mL
[2022-08-26] MEDS ORDERED: Sulfamethox/Trimethoprim DS TAB 800/160 mg PO ONE (02:19)
[2022-08-26 03:21] LABS: Glucose Confirmatory 474 mg/dL (70-100)
[2022-08-26] MEDS ORDERED: Polyethylene Glycol 3350 17 GM PACKET PO PRN (05:33)
[2022-08-26] MEDS ORDERED: Senna TAB 8.6 mg TAB PO PRN (05:33)
[2022-08-26] MEDS: Enoxaparin 40 MG/0.4 ML SYR SUBCUT SCH (06:02)
[2022-08-26 06:13] LABS: Osmolality Serum 309 mOsm/kg (275-295)
[2022-08-26] MEDS ORDERED: Albuterol HFA INHALER 8 gm MDI INH PRN (06:28)
[2022-08-26 06:34] LABS: ABS Basophils 0.1 10^3/uL (0.0-0.1); ABS Eosinophils 0.1 10^3/uL (0.0-0.5); ABS Lymphocytes 1.4 10^3/uL (1.0-4.8); ABS Monocytes 0.8 10^3/uL (0.0-0.9); ABS Neutrophils 9.9 10^3/uL (1.5-7.6); Hematocrit 32.8 % (35-45); Hemoglobin 11.2 g/dL (11.5-14.3); Lymphocyte % 11.2 %; Mean Corpuscular Hemoglobin 28.1 pg (27-33); Mean Corpuscular Hgb Conc 34.2 g/dL (31-36); Mean Corpuscular Volume 82.3 fL (80-97); Mean Platelet Volume 7.9 fL (7.5-11.2); Platelet Count 275 10^3/uL (150-450); Red Blood Count 3.98 10^6/uL (3.63-4.92); Red Cell Distribution Width 14.4 % (12-17); White Blood Count 12.3 10^3/uL (3.8-11.8)
[2022-08-26 07:15] LABS: Creatinine, Serum 1.22 mg/dL (0.51-0.95); Lithium 0.76 mmol/L (0.6-1.2); Potassium 3.9 mmol/L (3.5-5.0); eGFR CKD-EPI 51.1 (>60)
[2022-08-26 09:04] LABS: C Reactive Protein 134.87 mg/L (<8.01)
[2022-08-26] MEDS: Sulfamethox/Trimethoprim DS TAB 800/160 mg PO SCH ×2 (09:11→21:46)
[2022-08-26 10:36] LABS: Urine Osmo 223 mOsm/kg (150-1150)
[2022-08-26 17:26] LABS: Creatinine, Serum 1.3 mg/dL (0.51-0.95); Potassium 4.4 mmol/L (3.5-5.0); eGFR CKD-EPI 47.4 (>60)
[2022-08-26] MEDS ORDERED: Insulin GLARGINE 100 un/ml 10 ml VIAL SUBCUT SCH (21:00)
[2022-08-26] MEDS ORDERED: Lithium Carb ER 300 mg TAB(NF) PO SCH (21:00)
[2022-08-27 06:14] LABS: ABS Eosinophils 0.1 10^3/uL (0.0-0.5); ABS Lymphocytes 1.3 10^3/uL (1.0-4.8); ABS Monocytes 0.6 10^3/uL (0.0-0.9); ABS Neutrophils 7.4 10^3/uL (1.5-7.6); Eosinophil % 1.1 %; Hematocrit 33.5 % (35-45); Hemoglobin 11.4 g/dL (11.5-14.3); Lymphocyte % 13.8 %; Mean Corpuscular Hemoglobin 28.3 pg (27-33); Mean Corpuscular Volume 83.3 fL (80-97); Platelet Count 283 10^3/uL (150-450); Red Blood Count 4.02 10^6/uL (3.63-4.92); White Blood Count 9.5 10^3/uL (3.8-11.8)
[2022-08-27 06:31] LABS: Creatinine, Serum 1.53 mg/dL (0.51-0.95); Potassium 4.6 mmol/L (3.5-5.0)
[2022-08-27] MEDS: Sulfamethox/Trimethoprim DS TAB 800/160 mg PO SCH (09:46)
[2022-08-27] MEDS: Enoxaparin 40 MG/0.4 ML SYR SUBCUT SCH (09:46)
[2022-08-27 10:02] LABS: Lithium 0.82 mmol/L (0.6-1.2)
[2022-08-27 10:15] VITALS: BP 126/80
== END 2022-08-27 11:40 | disposition home or self-care (01) ==
LOC: EDHOLD 23:29 → ED 23:29 → SUATTDRO 08-26 05:33 → EDHOLD 08-26 15:32 → MED 08-26 15:37
PROVIDERS: ADMIT Hospitalist; ATTEND Internal Medicine